=== PATIENT | female | born 1970 | race Caucasian/White ===

== ENCOUNTER → 2017-09-08 | Outpatient (CLI) | payer MEDICARE, MEDICAID ==
[~2017-09-08] MED LIST: CALC-904 PO; CARV6.25 PO; DIPH25CA79 PO; FOLI0.4T2 PO; HYDR-3812 PO; HYDR-3874 PO; IBUP-1780 PO; IOHEXOL 350 MG/ML 150 ML (OMNIPAQUE 350) VIAL IV ONE; MELA1TAB10 PO; NF-LAMO200 PO; NITR-65 PO; NS 100 ML (IVPB) BAG IV ONE; SIME125C85 PO; SIMV20TA PO; TOPI200T25 PO; VENL150C PO
[2017-09-08 10:49] LABS: BLOOD UREA NITROGEN 22 MG/DL (7-18); BUN/CREATININE RATIO 23; CREATININE SERUM 0.96 MG/DL (0.60-1.30); GFR ESTIMATED > 60
--- NOTE | 2017-09-08 18:44 | Diagnostic Imaging Report ---
PROCEDURE: CT angiography of the chest with contrast. TECHNIQUE: Multiple contiguous axial images were obtained through the chest after uneventful bolus administration of intravenous contrast. Reconstructed CTA MIP acquisitions were also performed. INDICATION: Sleep apnea. Bronchitis. Shortness of breath. Cough. 125 mL of Omnipaque 350 is administered intravenously. FINDINGS: The pulmonary arteries are well opacified with no filling defects seen to suggest pulmonary embolism. The thoracic aorta is normal in caliber. There is no mass or significant lymphadenopathy in the mediastinum, marta, or in the axillae. There are calcified granulomas seen in the left hilum and mediastinum, however. The lungs demonstrate a calcified granuloma in the superior segment of the left lower lobe. No significant consolidation, mass, or suspicious nodule is seen otherwise. There is a 4.4 x 3.2 x 2.3 cm fluid-attenuation lesion abutting the right side of the pericardium suggestive of a pericardial cyst. The heart size is not enlarged. No pericardial or pleural effusion. The osseous structures demonstrate a mild compression fracture of the T11 vertebral body, favored to be old. Sections in the upper abdomen appear grossly unremarkable. There is an implanted cardiac/vascular sonographer seen in the anterior left chest wall. IMPRESSION: 1. No pulmonary embolism or aortic dissection. 2. Fluid-attenuation lesion abutting the right side of the pericardium is suggestive of a pericardial cyst. Dictated by: Dictated on workstation # [id number]
== END ==
LOC: RAD 10:05
PROVIDERS: ATTEND Nurse Practitioner Family
DX: J40 Bronchitis, not specified as acute or chronic (principal); R91.8 Other nonspecific abnormal finding of lung field
CPT/HCPCS: 36415; 71275; 82565; 84520

== ENCOUNTER → 2017-09-14 | Outpatient (CLI) | payer MEDICARE, MEDICAID ==
[~2017-09-14] MED LIST changes: -IOHEXOL 350 MG/ML 150 ML (OMNIPAQUE 350) VIAL IV ONE; -NS 100 ML (IVPB) BAG IV ONE; +RT-ALBUTEROL SULF 2.5 MG/3 ML PRE-MIX VIAL IH ONE; +RT-ALBUTEROL SULF 2.5 MG/3 ML PRE-MIX VIAL ONE
== END ==
LOC: RT 08:34
PROVIDERS: ATTEND Nurse Practitioner Family
DX: J40 Bronchitis, not specified as acute or chronic (principal); R06.00 Dyspnea, unspecified
CPT/HCPCS: 94060; 94640; 94726; 94729

== ENCOUNTER 2017-09-16 20:15 | Outpatient (CLI) | payer MEDICARE, MEDICAID ==
[~2017-09-16 20:15] MED LIST changes: -RT-ALBUTEROL SULF 2.5 MG/3 ML PRE-MIX VIAL IH ONE; -RT-ALBUTEROL SULF 2.5 MG/3 ML PRE-MIX VIAL ONE
== END 2017-09-17 06:24 | disposition home or self-care (01) ==
LOC: SLEEP 20:15
PROVIDERS: ATTEND Nurse Practitioner Family
DX: G47.50 Parasomnia, unspecified (principal); G40.909 Epilepsy, unspecified, not intractable, without status epilepticus; G47.10 Hypersomnia, unspecified; G47.00 Insomnia, unspecified
CPT/HCPCS: 95810

== ENCOUNTER → 2017-10-25 | Outpatient (CLI) | payer MEDICARE, MEDICAID ==
[2017-10-25 12:32] LABS: ABG BASE EXCESS -1.9 MMOL/L (-2.5-2.5); ABG HCO3 22 MMOL/L (23-27); ABG OXYGEN SATURATION 100 % (94-100); ABG TCO2 23.2 MMOL/L (21.0-31.0)
[2017-10-25 12:33] LABS: ABG PCO2 35 MMHG (35-45); ABG PH 7.41 (7.37-7.43); ABG PO2 166 MMHG (79-93); ALLENS TEST YES-POS; PATIENT TEMP 98.7
== END ==
LOC: LAB 12:06
PROVIDERS: ATTEND Nurse Practitioner Family
DX: J44.9 Chronic obstructive pulmonary disease, unspecified (principal)
CPT/HCPCS: 82805

== ENCOUNTER → 2017-10-26 | Outpatient (CLI) | payer MEDICARE, MEDICAID | LOC: SLEEP 11:11 | PROVIDERS: ATTEND Nurse Practitioner Family | DX: G47.33 Obstructive sleep apnea (adult) (pediatric) (principal) ==

== ENCOUNTER → 2018-01-16 | Outpatient (CLI) | payer MEDICARE, MEDICAID ==
[~2018-01-16] MED LIST changes: +ACHD5005 PO; -HYDR-3812 PO
--- NOTE | 2018-01-16 15:56 | Diagnostic Imaging Report ---
INDICATION: Bilateral kidney stones. TIME OF EXAM: 4:00 p.m. COMPARISON: Comparison is made with prior exam from 03/31/2016. FINDINGS: There is a small calcific density overlying the lower pole of the left renal shadow, similar to prior exam and is suggestive of a small renal calculus. Right renal shadow is obscured by fecal material within the colon. No definite calcific densities in the proximal or mid ureters is seen. There are some pelvic calcifications present. Calcifications do appear to be somewhat medially oriented bilaterally and the possibility of distal ureteric calculi cannot be entirely excluded. Bowel gas pattern is nonobstructive. No free air seen. IMPRESSION: Abdominal calcifications, as described. Dictated by: Dictated on workstation # [id number]
== END ==
LOC: RAD 14:38
PROVIDERS: ATTEND Urology
DX: N20.2 Calculus of kidney with calculus of ureter (principal)
CPT/HCPCS: 74018

== ENCOUNTER 2018-01-25 20:47 | Outpatient (CLI) | payer MEDICARE, MEDICAID ==
[~2018-01-25 20:47] MED LIST changes: +HYDR-3870 PO; -HYDR-3874 PO
== END 2018-01-26 06:15 | disposition home or self-care (01) ==
LOC: SLEEP 20:47
PROVIDERS: ATTEND Nurse Practitioner Family
DX: G47.33 Obstructive sleep apnea (adult) (pediatric) (principal); G47.10 Hypersomnia, unspecified; G40.909 Epilepsy, unspecified, not intractable, without status epilepticus
CPT/HCPCS: 95811

== ENCOUNTER → 2018-05-09 | Outpatient (CLI) | payer MEDICARE, MEDICAID ==
--- NOTE | 2018-05-09 12:03 | Diagnostic Imaging Report ---
INDICATION: Bronchitis COMPARISON: 09/04/2009 FINDINGS: Frontal and lateral views of the chest demonstrate spinal stimulator device in place. Heart size remains stable. There is a questionable area of consolidation in the medial right lung base. Left lung is clear. There is no pneumothorax or effusion. IMPRESSION: Consolidation medial right lung base. Followup recommended. Dictated by: Dictated on workstation # [id number]
== END ==
LOC: RAD 11:28
PROVIDERS: ATTEND Nurse Practitioner Family
DX: J40 Bronchitis, not specified as acute or chronic (principal); J18.1 Lobar pneumonia, unspecified organism
CPT/HCPCS: 71046

== ENCOUNTER → 2018-07-03 | Outpatient (CLI) | payer MEDICARE, MEDICAID ==
--- NOTE | 2018-07-03 12:08 | Diagnostic Imaging Report ---
INDICATION: Bronchitis, dyspnea, pneumonia. TECHNIQUE: Two view chest 11:13 AM CORRELATION STUDY: 05/09/2018 FINDINGS: Generator pack over the left chest with leads coursing into the neck with fairly significant redundancy present. Heart size and mediastinum are stable. Lung cohen generally clear. Density right cardiophrenic angle stable. IMPRESSION: 1. Stable chest demonstrates no acute abnormality. Density right cardiophrenic angle corresponds to a previously described pericardial cyst. Dictated by: Dictated on workstation # [id number]
== END ==
LOC: RAD 10:41
PROVIDERS: ATTEND Nurse Practitioner Family
DX: J40 Bronchitis, not specified as acute or chronic (principal); J18.9 Pneumonia, unspecified organism
CPT/HCPCS: 71046

== ENCOUNTER → 2018-07-05 | Outpatient (CLI) | payer MEDICARE, MEDICAID ==
[~2018-07-05] MED LIST changes: +IOHEXOL 350 MG/ML 100 ML (OMNIPAQUE 350) VIAL IV ONE; +NS 250 ML (IVPB) BAG IV ONE
--- NOTE | 2018-07-05 12:57 | Diagnostic Imaging Report ---
PROCEDURE: CT chest with contrast only. TECHNIQUE: Multiple contiguous axial images were obtained through the chest after administration of intravenous contrast. INDICATION: Sleep disorder, atelectasis, bronchitis. FINDINGS: The previous CTA chest exam of 09/08/2017 failed to show any sign of an acute cardiopulmonary abnormality. On this exam, the heart size is stable and within normal limits. There are no coronary artery calcifications evident. The aorta is not abnormally dilated and there is no sign of a dissection. There is no defect within the pulmonary arteries to indicate a pulmonary embolus, although the pulmonary arteries are not well opacified and consequently the evaluation for pulmonary embolus is limited. There is some gas in the main pulmonary artery. This is probably related to the injection of the intravenous contrast. There is no mediastinal or hilar adenopathy. The suspected pericardial cyst in the right cardiophrenic angle seen on the prior study is again evident and not significantly changed. The thyroid gland where visualized is unremarkable. The battery pack in the left supraclavicular region seen previously is again evident and appears unchanged in position. The lungs are generally clear. There is no sign of failure, pneumonia, or pleural effusion to suggest an acute abnormality. In the interval since the previous study, however a 6 mm partially calcified nodular density has developed along the posterior aspect of the left upper lobe (image 27/66). This is probably a small granuloma. No other parenchymal lung mass is noted. The sections through the upper abdomen fail to show any sign of an acute abnormality. The bone windows are also unremarkable for an acute fracture or for destructive lesion. The mild long-standing compression deformity of the superior endplate of T12 seen previously appears stable. The calcified disc bulges at T6-T7 and T7-T8 are also no different than on the prior exam. There does appear to be spinal stenosis at the T7-T8 level. There is no obvious breast mass. According to our records, the patient has not had a mammogram. If the patient has had a recent (within the last year) mammogram elsewhere, then no further imaging would be necessary. However if the patient has not had a recent mammogram, then mammography would be recommended for further evaluation. IMPRESSION: 1. There is no evidence for an acute cardiopulmonary abnormality. The pulmonary arteries were not well opacified however and consequently difficult to assess. 2. In the interval since the prior study, a small partially calcified nodular density has developed along the posterior aspect of the left upper lung. This is most likely a benign process. Even so, a six-month followup CT chest exam would be recommended for continued evaluation. 3. There is no obvious breast mass. Recommendations, as above. Dictated by: Dictated on workstation # [id number]
== END ==
LOC: RAD 11:12
PROVIDERS: ATTEND Nurse Practitioner Family
DX: J40 Bronchitis, not specified as acute or chronic (principal); J98.11 Atelectasis; G47.50 Parasomnia, unspecified; J44.9 Chronic obstructive pulmonary disease, unspecified; F17.200 Nicotine dependence, unspecified, uncomplicated
CPT/HCPCS: 71260

== ENCOUNTER → 2019-01-09 | Outpatient (CLI) | payer MEDICARE, MEDICAID ==
[~2019-01-09] MED LIST changes: -IOHEXOL 350 MG/ML 100 ML (OMNIPAQUE 350) VIAL IV ONE; -NS 250 ML (IVPB) BAG IV ONE; -SIME125C85 PO; +SIME125C86 PO
--- NOTE | 2019-01-09 11:32 | Diagnostic Imaging Report ---
PROCEDURE: CT chest without contrast. TECHNIQUE: Multiple contiguous axial images were obtained through the chest without the use of intravenous contrast. INDICATION: COPD. Bronchitis. Epilepsy. COMPARISON: April 04, 2018. FINDINGS: Evaluation of the lung cohen demonstrates benign calcified granuloma within the posterior margins of the left lower lobe. Some associated benign left perihilar lymph nodes are also noted. No suspicious pulmonary parenchymal nodules or masses are identified. There is no focal consolidation, large effusion, nor pneumothorax on either side. Cardiomediastinal structures show normal heart size. There is no large pericardial effusion. No pathologically enlarged or morphologically abnormal adenopathy is seen within the mediastinum, marta, nor axillae on this noncontrast exam. Osseous structures show no acute abnormalities. Neurostimulator device is noted in the left upper chest anteriorly. Included portions of the upper abdomen show no additional acute abnormalities. IMPRESSION: 1. No acute cardiopulmonary process. Dictated by: Dictated on workstation # [id number]
[2019-01-09 12:08] LABS: ABG BASE EXCESS -3.3 MMOL/L (-2.5-2.5); ABG OXYGEN SATURATION 99 % (94-100); ABG PCO2 34 MMHG (35-45); ABG PO2 94 MMHG (79-93); ABG TCO2 21.8 MMOL/L (21.0-31.0); ALLENS TEST YES-POS; INSPIRED O2 ROOM AIR; PATIENT TEMP 97.9; VENTILATOR NO
== END ==
LOC: RAD 10:42
PROVIDERS: ATTEND Nurse Practitioner Family
DX: J44.9 Chronic obstructive pulmonary disease, unspecified (principal); G47.33 Obstructive sleep apnea (adult) (pediatric); G47.50 Parasomnia, unspecified; J40 Bronchitis, not specified as acute or chronic; J98.11 Atelectasis; J30.9 Allergic rhinitis, unspecified; G40.909 Epilepsy, unspecified, not intractable, without status epilepticus; F17.200 Nicotine dependence, unspecified, uncomplicated
CPT/HCPCS: 36600; 71250; 82805

== ENCOUNTER → 2019-04-18 | Outpatient (CLI) | payer MEDICARE, MEDICAID ==
[~2019-04-18] MED LIST changes: +RT-ALBUTEROL SULF 2.5 MG/3 ML PRE-MIX VIAL INH ONE; +RT-ALBUTEROL SULF 2.5 MG/3 ML PRE-MIX VIAL ONE
== END ==
LOC: RT 13:16
PROVIDERS: ATTEND Nurse Practitioner Family
DX: J44.9 Chronic obstructive pulmonary disease, unspecified (principal); J40 Bronchitis, not specified as acute or chronic
CPT/HCPCS: 94060; 94726; 94729

== ENCOUNTER → 2019-05-29 | Outpatient (CLI) | payer MEDICARE, MEDICAID ==
[~2019-05-29] MED LIST changes: -RT-ALBUTEROL SULF 2.5 MG/3 ML PRE-MIX VIAL INH ONE; -RT-ALBUTEROL SULF 2.5 MG/3 ML PRE-MIX VIAL ONE
--- NOTE | 2019-05-29 11:16 | Diagnostic Imaging Report ---
INDICATION: Left knee pain. Three views were obtained. FINDINGS: The alignment is normal. There is an intramedullary jean paul in the left tibia. There are mild degenerative changes. There is no fracture or dislocation. IMPRESSION: Mild three compartment osteophytic change otherwise unremarkable. Dictated by: Dictated on workstation # [id number]
== END ==
LOC: RAD FS 10:29
PROVIDERS: ATTEND Nurse Practitioner
DX: M17.12 Unilateral primary osteoarthritis, left knee (principal); M25.762 Osteophyte, left knee
CPT/HCPCS: 73562

== ENCOUNTER → 2019-08-27 | Outpatient (CLI) | payer MEDICARE, MEDICAID ==
--- NOTE | 2019-08-27 10:15 | Diagnostic Imaging Report ---
EXAMINATION: Left tibia and fibula at 0951 hours. INDICATION: Leg pain. AP and lateral views were obtained. COMPARISON: There are no prior left tibia and fibula examinations available for comparison. FINDINGS: The left knee exam of 05/29/2019 noted an intramedullary jean paul and orthopedic fixation screws in the proximal tibia. On this exam the intramedullary jean paul is again identified and seems unchanged in position. There are also extensive postsurgical changes involving the distal tibia and fibula. Specifically, there are orthopedic fixation screws and wires traversing the medial aspect of the distal tibia. There is also an orthopedic plate and screw fixation device along the lateral aspect of the distal tibia and there is an orthopedic fixation screw longitudinally traversing the lateral malleolus and distal most portion of the fibula. The orthopedic hardware seems to be in good position. There is no fracture or acute bony abnormality identified. As noted on the previous exam, there is mild narrowing of the medial compartment of the knee joint. The knee joint is otherwise well maintained. There does appear to be at least moderate degenerative disease of the ankle joint. The soft tissues are unremarkable. IMPRESSION: There are postsurgical and posttraumatic changes involving the tibia and fibula but there is no evidence for an acute bony abnormality. Dictated by: Dictated on workstation # [id number]
== END ==
LOC: RAD FS 09:32
PROVIDERS: ATTEND Nurse Practitioner
DX: M17.12 Unilateral primary osteoarthritis, left knee (principal); Z98.890 Other specified postprocedural states
CPT/HCPCS: 73590

== ENCOUNTER → 2019-09-03 | Outpatient (CLI) | payer MEDICARE, MEDICAID ==
--- NOTE | 2019-09-03 09:54 | Diagnostic Imaging Report ---
EXAMINATION: Right ankle radiograph, 3 views. COMPARISON: None. HISTORY: 49-year-old female, right ankle pain. FINDINGS: There is sideplate and screw fixation hardware at the level of the distal fibula with additional fibular fixation screw. There is a chronic healed fracture deformity of the distal fibular diaphysis. There is a partially imaged intramedullary jean paul fixation screw in the distal tibia. There is a chronic fracture deformity at the level of the distal tibial metadiaphysis. The visualized portions of the hardware are intact. There is well-corticated ossification adjacent to the distal fibular tip compatible with sequela of remote prior injury as well as the well-corticated ossifications adjacent to the tip of the medial malleolus. The alignment of the ankle mortise is unremarkable. There is no identified acute fracture. There is no tibiotalar joint effusion. There is no identified unexpected radiopaque foreign body. IMPRESSION: 1. No acute bony abnormality at the level of the right ankle. Dictated by: Dictated on workstation # [id number]
--- NOTE | 2019-09-03 09:54 | Diagnostic Imaging Report ---
INDICATION: Leg pain. TECHNIQUE: AP and lateral views of the right tibia and fibula CORRELATION STUDY: None FINDINGS: Longstem intramedullary jean paul with proximal distal fixation screws as well as a plate and screws transfixing distal fibula are present. Old healed fracture deformity of the distal fibula above the area of plate is present. An acute bony abnormality is not suggested. Imaging of the knee demonstrates no acute abnormality. Ankle better assessed at dedicated ankle views. Soft tissues are unremarkable. IMPRESSION: 1.Negative for acute bony abnormality of the leg. Internal fixation hardware including jean paul, plate and screws of the tibia and fibula. Dictated by: Dictated on workstation # [id number]
== END ==
LOC: RAD FS 09:24
PROVIDERS: ATTEND Nurse Practitioner
DX: M25.571 Pain in right ankle and joints of right foot (principal); M79.661 Pain in right lower leg; Z87.81 Personal history of (healed) traumatic fracture; Z98.890 Other specified postprocedural states; Z96.7 Presence of other bone and tendon implants
CPT/HCPCS: 73590; 73610

== ENCOUNTER 2020-02-10 17:18 | Emergency (ER) | payer MEDICARE, MEDICAID ==
[~2020-02-10] VITALS: Ht 160 cm; Wt 92.3 kg
[2020-02-10 17:20] VITALS: BP 125/70
--- NOTE | 2020-02-10 17:29 | ED Fall/Injury ---
General Stated Complaint: LT HAND INJ History of Present Illness Date Seen by Provider: Feb 10, 2020 Time Seen by Provider: 17:25 Initial Comments This patient is a 49-year-old female presents to the emergency department complaining of left hand injury. Patient states she has chronic and frequent seizures and seizure activity has been having these issues since she was 20 [address] and does take her medications daily patient states this is a daily occurrence. Patient states that she had a seizure earlier today and when she hit her hand on a cabinet. Patient complained of pain and some bruising. Patient requests x-ray. Patient is awake and alert and does not appear to be any acute postictal phase. Patient states her seizure activity is chronic and seems to be given little bit better than her norm. Patient is followed local PCP for this pain. The medical evaluation tracing. Occurred: this afternoon Severity: mild Context: other Allergies and Home Medications Allergies Coded Allergies: acetaminophen (Verified Allergy, Unknown, blisters inside mouth, 03/22/16) aspirin (Verified Allergy, Unknown, interferes with seizure med, 03/22/16) codeine (Verified Allergy, Unknown, blisters inside mouth, 03/22/16) Home Medications Calcium Carbonate/Vitamin D3 1 Each Tablet, 1 EACH PO TID, (Reported) Carvedilol 6.25 Mg Tablet, 6.25 MG PO DAILY, (Reported) Carvedilol 6.25 Mg Tablet, 3.125 MG PO HS, (Reported) TAKE 1/2 OF 6.25MG TAB Diphenhydramine HCl 25 Mg Capsule, 50 MG PO TAKE WITH HYDROCODON, (Reported) TAKE 2 (25MG) TABS WITH HYDROCODONE Folic Acid 0.4 Mg Tablet, 0.4 MG PO DAILY, (Reported) Hydrocodone Bit/Acetaminophen 1 Each Tablet, 1-2 EACH PO Q4H PRN for PAIN, (Reported) Hydrocodone/Acetaminophen 1 Each Tablet, 1-2 EACH PO Q4H PRN for PAIN Prescribed by: NUBIA ROBLES on 03/24/16 1008 Ibuprofen 800 Mg Tablet, 800 MG PO Q8H PRN for PAIN, (Reported) Lamotrigine 200 Mg Tab, 200 MG PO TID, (Reported) Melatonin/Pyridoxine 1 Each Tablet, 3 MG PO HS PRN for SLEEP, (Reported) Nitrofurantoin Monohyd/M-Cryst 100 Mg Capsule, 1 TAB PO BID Prescribed by: NUBIA ROBLES on 03/24/16 1008 Simethicone 125 Mg Capsule, 125 MG PO PRN PRN for GAS, (Reported) Simvastatin 20 Mg Tablet, 20 MG PO HS, (Reported) Topiramate 200 Mg Tablet, 200 MG PO TID, (Reported) Venlafaxine HCl 150 Mg Cap.er.24h, 150 MG PO DAILY, (Reported) Patient Home Medication List Home Medication List Reviewed: Yes Review of Systems Review of Systems Constitutional: no symptoms reported, see HPI; No chills, No diaphoresis, No dizziness, No fever, No malaise, No weakness, No weight gain, No weight loss, No other Eyes: No Symptoms Reported; Denies See HPI, Denies Blindness, Denies Blurred Vision, Denies Drainage, Denies Decreased Acuity, Denies Foreign Body Sensation, Denies Inflammation, Denies Pain, Denies Photophobia, Denies Previous Injury, Denies Shadows, Denies Tunnel Vision, Denies Vision Changes, Denies Contact Lenses, Denies Glasses, Denies Other Ears, Nose, Mouth, Throat: no symptoms reported; denies see HPI, denies ear pain, denies ear discharge, denies nose pain, denies nose discharge, denies epistaxis, denies mouth pain, denies mouth swelling, denies loose teeth, denies throat pain, denies throat swelling Respiratory: no symptoms reported; No see HPI, No cough, No dyspnea on exertion, No hemoptysis, No orthopnea, No phlegm, No short of breath, No stridor, No wheezing, No other Cardiovascular: no symptoms reported; No see HPI, No chest pain, No edema, No Hx of Intervention, No palpitations, No syncope, No vascular heart diseas, No other Musculoskeletal: No no symptoms reported, No see HPI, No back pain, No gout, No joint pain, No joint swelling, No muscle pain, No muscle stiffness, No muscle cramps, No muscle twitching, No muscle weakness, No neck pain; other (Hand pain) Skin: no symptoms reported; No see HPI, No change in color, No change in hair/nails, No dryness, No hx of skin cancer, No lesions, No lumps, No pruritus, No rash, No other Psychiatric/Neurological: Denies No Symptoms Reported, Denies See HPI, Denies Anxiety, Denies Depressed, Denies Emotional Problems, Denies Headache, Denies Numbness, Denies Paresthesia, Denies Pre-Existing Deficit; Seizure (chronic seizures and happened daily. Patient takes medications and also has a brain stimulator.); Denies Tingling, Denies Tremors, Denies Weakness, Denies Other Past Pemtosk-Xrgdry-Yxgied Hx Immunizations Up To Date Date of Pneumonia Vaccine: Nov 28, 2013 Past Medical History Reproductive Disorders: No Sexually Transmitted Disease: No Kidney Stones Arthritis, Fractures Physical Exam Vital Signs Vital Signs - First Documented 02/10/20 17:20 Temp 36.4 Pulse 107 Resp 18 B/P (MAP) 125/70 (88) Pulse Ox 97 O2 Delivery Room Air Capillary Refill : Height, Weight, BMI Height: 5'3.00" Weight: 191lbs. 2.0oz. [id number]; 31.78 BMI Method: General Appearance: WD/WN, no apparent distress HEENT: PERRL/EOMI, normal ENT inspection, TMs normal, pharynx normal Neck: non-tender, full range of motion, supple, normal inspection Cardiovascular: normal peripheral pulses, regular rate, rhythm, no edema, no gallop, no JVD, no murmur Respiratory: chest non-tender, lungs clear, normal breath sounds, no respiratory distress, no accessory muscle use Gastrointestinal: normal bowel sounds, non tender, soft, no organomegaly, no pulsatile mass Extremities: normal inspection, no pedal edema, no calf tenderness, normal capillary refill, other (patient complains of difficulty making a fist with her left hand due to pain and bruising. No obvious deformity seen.) Progress/Results/Core Measures Results/Orders My Orders Orders - CASH SARGENT MD Hand 3 View Left (02/10/20 17:25) Ice: Apply To Affected Area (02/10/20 17:25) Vital Signs/I&O 02/10/20 17:20 Temp 36.4 Pulse 107 Resp 18 B/P (MAP) 125/70 (88) Pulse Ox 97 O2 Delivery Room Air Diagnostic Imaging Diagonstic Imaging: Xray Plain Films/CT/US/NM/MRI: hand Comments Negative for any acute fractures or injury. Departure Impression Primary Impression: Contusion of hand Additional Impression: History of seizures Disposition: 01 HOME, SELF-CARE Condition: Stable Departure-Patient Inst. Decision time for Depature: 17:37 Referrals: LIZZ HENRIQUEZ DO (PCP/Family) Primary Care Physician Patient Instructions: Hand Pain (DC) Add. Discharge Instructions: No fractures by x-ray. Continue with rest and elevation compression ice as needed. May take Tylenol Motrin earlier home pain medication for any relief. Follow up with her PCP in 2-3 days. CASH SARGENT MD Feb 10, 2020 17:29
--- NOTE | 2020-02-10 17:49 | Diagnostic Imaging Report ---
INDICATION: Fall, left hand pain, swelling and redness. EXAMINATION: Three views of the left hand were obtained. FINDINGS: Slight irregularity along the volar aspect of middle phalanx at the PIP joint as seen on the lateral view. I believe this is the 2nd digit. No other fracture, dislocation or other acute abnormality is seen. IMPRESSION: Nondisplaced fracture involving the volar aspect of the middle phalanx at the PIP joint which appears to be the 2nd digit. This is only seen on the lateral view. Dictated by: Dictated on workstation # [id number]
--- OUTSIDE RECORDS SUMMARY | 2020-02-11 03:06 | XMS REPORT | Clinical Summary ---
Author [facility] Address Unknown Phone Unavailable Care Team Providers Care Clutch Inspector Name Role Phone EldonFreedom correa PCP Ap Chen MD Unavailable Travis Edwards MD Unavailable Alexey Zapata MD Unavailable Nori Yanez RN Unavailable Unavailable Verna Modi RN Unavailable Unavailable Quentin Loja MD Unavailable Samy Aguirre MD Unavailable Jabari Kumar MD Unavailable Lauren Venegas RN Unavailable Unavailable Annalisa Smith RN Unavailable Unavailable Prashant Nelson RN Unavailable Unavailable Ariana Thomas MD Unavailable Stephany Nelson RN Unavailable Unavailable Source Comments Some departments are not documenting in the electronic medical record. If you d o not see the information that you expected, contact Release of Information in [facility] Information Management department at [phone] for further assistan ce in locating additional records.[facility] Allergies Comments Active Allergy Reactions Severity Noted Date Allergy recorded in SMS: Aspirin Patient told to avoid due to interaction with ani-seizure medications Aspirin SEE COMMENTS 04/11/2006 Amoxicillin-Pot SEIZURES 06/17/2014 Clavulanate Ibandronate SEIZURES 05/21/2010 Swelling Acetaminophen-Codeine SEE COMMENTS 01/16/2014 Medications End Date Status Medication Sig Dispensed Refills Start Date Active CALCIUM CARBONATE/VITAMIN Take 600 mg 0 D3 (CALCIUM + D PO) by mouth three times daily. Active medroxyPROGESTERone,contr Inject 150 mg 0 acep, (DEPO-PROVERA) to area(s) as 150mg/1 mL Syrg directed Once. Active venlafaxine XR (EFFEXOR Take 150 mg 0 XR) 150 mg capsule by mouth Daily. Active diphenhydrAMINE Take 25 mg by 0 (BENADRYL) 25 mg PO mouth Every 6 capsule Hours as needed. Active albuterol (VENTOLIN HFA, Inhale 1-2 0 PROAIR HFA) 90 Puffs by mcg/actuation inhaler mouth every 6 hours as needed. Active lamoTRIgine (LAMICTAL) Take 200 mg 0 200 mg tablet by mouth three times daily. Active propranolol (INDERAL) 60 Take 60 mg by 0 mg tablet mouth twice daily. Active topiramate (TOPAMAX) 200 Take 200 mg 0 mg tablet by mouth three times daily. Active ascorbic acid (VITAMIN C) Take 500 mg 0 500 mg tablet by mouth three times daily. Active HYDROcodone-acetaminophen Take 1-2 Tabs 60 Tab 0 (+) (VICODIN) 10-325 mg by mouth 4 tablet every 4 hours as needed for Pain. Max 8 tabs/day Active carvedilol (COREG) 6.25 Take 6.25 mg 0 mg tablet by mouth twice daily. 1/2 tab am 1/2 tab @@nite Active simvastatin (ZOCOR) 20 mg Take 20 mg by 0 tablet mouth at bedtime daily. Active Problems Problem Noted Date Abdominal pain 05/28/2015 Diarrhea 05/28/2015 Tibia fracture 01/16/2014 Fracture of tibia, distal, closed 09/02/2010 Adjustment of prosthetic device 09/02/2010 Seizures 03/30/2010 Calculus of kidney 02/01/2008 Resolved Problems Problem Noted Date Resolved Date Ankle fracture 12/13/2013 04/29/2014 Complications due to internal prosthetic device, impl ant, and graft 09/02/2010 01/29/2014 Immunizations Name Administration Dates Next Due Flu Vaccine Trivalent =>3 01/17/2014 Yo (Preservative Free) Pneumococcal Vaccine 01/17/2014 (23-Carol Adult) Family History Medical History Relation Name Comments Diabetes Father Heart Attack Father Arthritis Mother Heart Attack Mother Osteoporosis Mother Asthma Son Relation Name Status Comments Father Mother Son Social History Date Tobacco Use Types Packs/Day Years Used Quit: 01/05/2014 Former Smoker Cigarettes 0.5 19 Smokeless Tobacco: Never Used Drinks/Week oz/Week Comments Alcohol Use No Sex Assigned at Date Recorded Not on file Industry Job Start Date Occupation Not on file Not on file Not on file Travel End Travel History Travel Start No recent travel history available. Last Filed Vital Signs Reading Time Taken Comments Vital Sign 105/63 06/10/2015 10:00 AM CDT Blood Pressure 94 06/10/2015 10:03 AM CDT Pulse 36.7 C (98.1 F) 06/10/2015 9:10 AM CDT Temperature 16 05/28/2015 11:28 AM CDT Respiratory Rate 98% 06/10/2015 10:03 AM CDT Oxygen Saturation - - Inhaled Oxygen Concentration 82.6 kg (182 lb) 06/10/2015 7:47 AM CDT Weight 158.8 cm (5' 2.5") 06/10/2015 7:47 AM CDT Height 32.76 06/10/2015 7:47 AM CDT Body Mass Index Plan of Treatment Health Maintenance Due Date Last Done Comments MEDICARE ANNUAL WELLNESS 1970 VISIT DTAP/TDAP VACCINES ( - 1981 Tdap) HIV SCREENING 1985 PHYSICAL (COMPREHENSIVE) 1988 EXAM CERVICAL CANCER SCREENING 1991 BREAST CANCER SCREENING 2010 INFLUENZA VACCINE 06/28/2019 01/17/2014 Results Not on filefrom Last 3 Months Insurance Type Payer Benefit Subscriber ID Effective Phone Address Plan / Dates Group Medicare MEDICARE MEDICARE xxxxxxxxxx 1993-P PART A AND resent B [facility] xxxxxxxxx 05/07/2014 - [place] Present HEALTH/SNF /INTERMEDIATE [id number] Advance Directives 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 necessary based on Dx 09/17/2010 2:32 PM Full Code 09/16/2010 3:14 AM 09/02/2010 5:48 PM Full Code 08/31/2010 9:13 PM 05/24/2010 5:01 AM Full Code 05/22/2010 5:00 PM 03/31/2010 9:51 PM Full Code 03/30/2010 4:25 PM
--- OUTSIDE RECORDS SUMMARY | 2020-02-11 03:07 | XMS REPORT | Encounter Summary ---
Author Author [facility] Organization [facility] Address Unknown Phone Unavailable Care Team Providers Care Hat Body Sorter Name Role Phone ElodnFreedom correa PCP Reason for Visit * Reason Comments Seizures Encounter Details Care Team Description Date Type Department Hortencia Stewart, FERTILIZER APPLICATOR [address] [place], [place] [id number] Seizures 01/09/2020 Telephone [facility] [address] [place] [address] Social History Date Tobacco Use Types Packs/Day Years Used Started: 1986 Current Every Day Smoker Cigarettes 0.5 35 Smokeless Tobacco: Never Used Comments: "I've tried everything there i s" Drinks/Week oz/Week Comments Alcohol Use 0 Standard drinks or equivalent 0.0 No Food Insecurity Answer Date Recorded Within the past 12 months, you worried that your Never josy e 12/13/2019 food would run out before you got money to buy more. Within the past 12 months, the food you bought Never true 12/13/2019 just didn't last and you didn't have mo ottoniel to get more. Transportation Needs Answer Date Recorded In the past 12 months, has lack of transportation No 12/13/2019 kept you from medical appointments or f rom getting medications? In the past 12 months, has lack of transportation No 12/13/2019 kept you from meetings, work, or gettin g things needed for daily living? Sex Assigned at Date Recorded Not on file Industry Job Start Date Occupation Not on file Not on file Not on file Travel End Travel History Travel Start No recent travel history available. documented as of this encounter Miscellaneous Notes * Telephone Encounter - Malathi Lanza RN - 01/15/2020 3:30 PM VIDEO SOFTWARE ENGINEER Called patient to check in with her to see if seizures are back to baseline. Damari keller VM to return phone call. O SOFTWARE ENGINEER * Telephone Encounter - Michel Rae CMA - 01/09/2020 4:29 PM VIDEO SOFTWARE ENGINEER Summer called and stated that she'd had her VNS turned up on 12/31/19 and that her seizures improved, but yesterday and today she's had a lot of seizures that sta rt around 12:30 PM and go on and off throughout the afternoon. She doesn't know when exactly they stop. She has been taking xanax to help calm herself down and today she was able to use her magnet a couple times but her head is sore and she feels weak. She is taking lamotrigine 200 mg TID, Briviact 100 mg BID, and B anzel 1600 mg BID and reports no missed or late doses. She reports no sleeping or stress issues, but does state she's felt congested with a cough since last we ek and that illness can contribute to her seizures. I encouraged her to consult her PCP about the cough but in the meantime offered to ask for further recommen dations. Please advise. O SOFTWARE ENGINEER documented in this encounter Plan of Treatment Care Team Description Date Type Specialty Hortencia Stewart, FERTILIZER APPLICATOR [address] [address] [phone] 03/31/2020 Office Visit Neurology documented as of this encounter Visit Diagnoses Not on filedocumented in this encounter
--- OUTSIDE RECORDS SUMMARY | 2020-02-11 03:07 | XMS REPORT | Encounter Summary ---
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 documented as of this encounter Last Filed Vital Signs Reading Time Taken Comments Vital Sign 123/62 12/31/2019 11:06 AM CUP[facility] [employer]PER[employer] Blood Pressure 108 12/31/2019 11:06 AM [employer] OPER[employer]ATION Pulse - - Temperature - - Respiratory Rate - - Oxygen Saturation - - Inhaled Oxygen Concentration 92.9 kg (204 lb 12.8 oz) 12/31/2019 11:06 AM [facility] [employer] Weight 160 cm (5' 3") 12/31/2019 11:06 AM [employer] Height 36.28 12/31/2019 11:06 AM [employer] Body Mass Index documented in this encounter Progress Notes * Hortencia Stewart APRN - 12/31/2019 11:00 AM [employer] [employer]PER[employer] Patient Name: Summer Cullen Age: 49 y.o. 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 She has previously see n Dr. Tsai and last saw him August 17, 2017. She was diagnosed with epileps y at 21 years of age. She typically has generalized tonic-clonic seizures with out an aura but she also has staring episodes without an aura. She has been harris luated on 3 prior occasions with video EEG monitoring, at [facility] in 1996, [facility] in 2010 and at [facility] by Dr. Oumar Babcock in 2016. A clear focus of seizure onset could not be found in any of these evaluations a nd overall it is thought she has a primary generalized form of epilepsy, but jerel n if she had a more focal form of epilepsy a focus cannot be found so she is not a candidate for a respective surgical option. MRI of the brain with and without contrast enhancement on May 06, 2011 showed bifrontal encephalomalacia was worse over the right frontal region with evidence of a previous craniotomy. Enceph alomalacia appears to be due to her invasive monitoring in the past and this wou ld represent a complication of that procedure. There is no evidence for mesial temporal sclerosis. Neuropsychological testing performed 2011 showed c ognitive changes but no clear lateralized pattern of dysfunction. I reviewed her prior epilepsy history from her last visit with me October 01. She was admitted to [facility] for inpatient video EEG telemetry -12/17/19. Initially her EEG showed theta frequency slowing as well as sh trevon discharges over the right temporal region. However as they continue to wean off her medications in order to trigger her seizures for localization purposes, more generalized abnormalities were seen. Two electrographic seizures were cap tured. The first seizure was characterized by a generalized burst of high-volta ge activity followed by an electric decremental response. The patient proceeded to have a secondarily generalized tonic-clonic seizure. In the postictal phase she removed some of the electrodes. Later the same day she had a breakthrough seizure with unclear localization because some of the electrodes had been remove d. However the seizure was quite similar in appearance to the first seizure cap tured. Since her discharge she is done reasonably well. She feels like her sei zures have decreased by 25% intensity since Briviact 100 mg twice daily was adde d. She does still have a seizure approximately once every 2 weeks. She has bee n discussing the option of a deep brain stimulator with her family and she is ve ry much in learning more about this and perhaps meeting with the neurosurgeon to discuss this approach. She continues with her prior regimen of lamotrigine 200 mg 3 times daily, Banzel 1600 mg BID, and Briviact 100 mg twice daily and is to lerating her medications reasonably well without intolerable side effects. Ther e are no new neurological symptoms. She continues wearing her BiPAP with oxygen at night more and more. This is res ulting in better sleep. It has been felt that both her seizure control and migr duncan control have been significantly worsened by her previously untreated sleep apnea. In the past, she has tried Dilantin, Tegretol, phenobarbital, Depakote, Potiga a nd Keppra in the past. She has tried Topamax which she attributed to kidney sto [place]. She thinks that she may have tried Vimpat but is not entirely sure. She t hinks that this may have increased her seizure frequency so it was discontinued. She has not tried zonisamide or Onfi. REVIEW OF SYSTEMS: A 14 system review of systems was negative except for where noted in the history of present illness above. 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 Difficulty staying asleep Exercise tolerance finding limited by leg pain--if walking a long way will use electric cart in grocery st ore Fractures from seizures--leg and ankle fractures in past Head injury concussions from seizures--since age 21 HL (hearing loss) left ear QUINAULT-no hearing aides Kidney stones Migraine Obesity JOSE ALBERTO (obstructive sleep apnea) Osteoarthritis mainly ankles and knees and wrists and back Osteopenia Seizures (HCC) Sinusitis possibly--history of sinus infections Urinary tract infection Visual impairment wears glasses PAST SURGICAL HISTORY: Past Surgical History: Procedure Laterality Date ANKLE SURGERY Bilateral 2009 x5 BRAIN SURGERY 1995 & 1997 x2 SECTION 1989 COLONOSCOPY IMPLANTATION, NEUROSTIMULATOR, VAGAL x 4 surgeries--2 stimulators and 2 batteries replaced KIDNEY STONE SURGERY approx. 2009 Laser surgery/more than one surgery for stones LEG SURGERY Left Took out screw ORIF TIBIA & FIBULA FRACTURES Right x2 ORIF TIBIA FRACTURE Left x 1 REPLACEMENT, GENERATOR, VAGUS NERVE NEUROSTIMULATOR N/A 02/25/2016 Procedure: VAGAL NERVE STIMULATOR REPLACEMENT WITH INOPERATIVE PROGRAMING; Delta geon: Sj Vivar MD; Location: [facility] Main OR; Service: ENT; Laterality : N/A; REPLACEMENT, GENERATOR, VAGUS NERVE NEUROSTIMULATOR Left 08/03/2019 Procedure: REPLACEMENT, GENERATOR, VAGUS NERVE NEUROSTIMULATOR; Surgeon: Yi Bhatti MD; Location: [facility] OR; Service: Neurosurgery; Laterality: Le ft; TUBAL LIGATION 1992 FAMILY HISTORY: Family History Problem Relation Age of Onset Hyperlipidemia Mother Migraines Mother Alzheimer's disease Mother Osteoporosis Mother Hyperlipidemia Father Diabetes Father Alcohol abuse Father Heart disease Father Heart disease Other FAMILY HX Heart disease Other FAMILY HX Rheum arthritis Other FAMILY HX Migraines Cousin No Known Problems Sister No Known Problems Brother No Known Problems Daughter No Known Problems Son No Known Problems Brother SOCIAL HISTORY: Social History Socioeconomic History Marital status: Spouse name: Not on file Number of children: Not on file Years of education: Not on file Highest education level: Not on file Occupational History 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 Social Needs Financial resource strain: Not on file Food insecurity Worry: Never true Inability: Never true Transportation needs Medical: No Non-medical: No Tobacco Use Smoking status: Current Every Day Smoker Packs/day: 0.50 Years: 35.00 Pack years: 17.50 Types: Cigarettes Start date: 1986 Smokeless tobacco: Never Used Tobacco comment: "I've tried everything there is" Substance and Sexual Activity Alcohol use: No Alcohol/week: 0.0 standard drinks Drug use: No Sexual activity: Not on file Lifestyle Physical activity Days per week: Not on file Minutes per session: Not on file Stress: Not on file Relationships Social connections Talks on phone: Not on file Gets together: Not on file Attends advent service: Not on file Active member of club or organization: Not on file Attends meetings of clubs or organizations: Not on file Relationship status: Not on file Intimate partner violence Fear of current or ex partner: Not on file Emotionally abused: Not on file Physically abused: Not on file Forced sexual activity: Not on file Other Topics Concern Not on file Social History Narrative Lives with adult daughter and grandchild Has AD, MPOA is father [place] Mireles Code status: FULL CURRENT MEDICATIONS: Current Outpatient Medications Medication Sig Dispense Refill ALBUTEROL INHL Inhale 2 puffs every 4 (four) hours as needed. ALPRAZolam (XANAX) 0.25 MG tablet Take 0.25 mg by mouth 3 (three) times a da y. brivaracetam 100 mg Tab Take 100 mg by mouth 2 (two) times a day. 180 tablet 1 budesonide-formoterol (SYMBICORT) 160-4.5 mcg/actuation inhaler Inhale 2 puf fs 2 (two) times a day. calcium carbonate-vitamin D3 600 mg(1,500mg) -800 unit Tab Take 1 tablet by mouth 3 (three) times a day. carvedilol (COREG) 25 MG tablet Take 25 mg by mouth 2 (two) times a day. 5 chrom annette/brindal tamayo (GARCINIA CAMBOGIA ORAL) Take 1 tablet by mouth minh ly. cyanocobalamin (VITAMIN B-12) 500 MCG tablet Take 500 mcg by mouth daily. diphenhydrAMINE (BENADRYL) 25 mg capsule Take 50 mg by mouth as needed (Take with Hydrocodone to stop itching). folic acid (FOLVITE) 1 MG tablet Take 1 tablet (1 mg total) by mouth daily. 90 tablet 3 HYDROcodone-acetaminophen (NORCO) 5-325 mg per tablet Take 1 tablet by mouth every 4 (four) hours as needed for pain. ibuprofen (ADVIL,MOTRIN) 800 MG tablet Take 800 mg by mouth 3 (three) times a day as needed. ipratropium-albuterol (DUO-NEB) 0.5-3 mg/3 mL nebulizer Inhale 3 mL via nebu lizer 4 (four) times a day as needed. lamoTRIgine (LAMICTAL) 200 MG tablet Take 1 tablet (200 mg total) by mouth 3 (three) times a day. 270 tablet 3 linaclotide (LINZESS) 145 mcg cap Take 145 mcg by mouth daily. medroxyPROGESTERone (DEPO-PROVERA) 150 mg/mL injection Inject 150 mg intramu scularly take as directed. Every 6 weeks melatonin 10 mg Tab Take 1 tablet by mouth nightly. montelukast (SINGULAIR) 10 mg tablet Take 10 mg by mouth nightly. nortriptyline (PAMELOR) 50 MG capsule Take 1 capsule (50 mg total) by mouth nightly. 90 capsule 3 ondansetron (ZOFRAN) 8 MG tablet Take 8 mg by mouth every 4 (four) hours as needed for nausea. OXYGEN THERAPY Use 3.5 L in each nostril nightly. rizatriptan (MAXALT) 10 MG tablet Take 1 tablet (10 mg total) by mouth as ne eded for migraine. After 2 hrs, if symptoms persist, may repeat dose x1. Max 2 d oses in 24 hrs. 10 tablet 11 rufinamide (BANZEL) 400 MG tablet Take 4 tablets (1,600 mg total) by mouth 2 (two) times a day. 720 tablet 3 simethicone (ANTI-GAS ULTRA STRENGTH) 180 mg capsule Take 360 mg by mouth ev nicole 6 (six) hours as needed for flatulence. simvastatin (ZOCOR) 20 MG tablet Take 20 mg by mouth nightly. solifenacin (VESICARE) 10 MG tablet Take 10 mg by mouth daily. UNABLE TO FIND daily. CENTRUM ADULTS TAKING 1 TAB DAILY. venlafaxine 225 mg ER 24 hr tablet Take 225 mg by mouth every morning. No current facility-administered medications for this visit. ALLERGIES: Allergies Allergen Reactions Aspirin Other (See Comments) Interacts with epilepsy meds Tylenol-Codeine #3 [Acetaminophen-Codeine] Lip swelling Examination: Vitals: 12/31/19 1106 BP: 123/62 BP Location: Left arm Patient position: Sitting Pulse: (!) 108 Weight: 92.9 kg (204 lb 12.8 oz) Height: 1.6 m (5' 3") Body mass index is 36.28 kg/m. Her exam remains unchanged from the prior visit October 01, 2019. Ms. Cullen is awake, alert, and interactive on examination. Her countenance is bright and cheerful today. Her mental status is intact to conversation. Her s peech is clear, and her language shows no deficits of comprehension. Her pupils are equal, round, and reactive to light. Her extraocular eye movements are full in all directions without nystagmus. Her face is symmetric at rest and with a ctivation. Her hearing is intact to conversation. Her palate elevates symmetric ally. Her tongue protrudes in the midline. Her muscle bulk and tone are normal throughout. Her strength is 5/5 in proximal and distal muscle groups in all fo ur limbs. Her sensation is intact to light touch throughout. Finger to nose an d rapid alternating movements are intact bilaterally. Her gait was normal and n arrow based with an intact tandem gait. She has mildly labored, audible breat radha at baseline. Heart sounds are regular. Extremities are warm without edema . I interrogated and reprogrammed her vagal nerve stimulator. The stimulation intensity was 2.75 MA (increased to 3.0 MA). Frequency of 15 Hz and a pulse width of 130 s. On time is 30 seconds with an off time of 1.1 minutes. Auto-stim intensity 2.75 MA (increased to 3.0 MA). Auto-stim on-time 60 seconds (decreased to 30 seconds). Auto-stim threshold Sensitivity 30% (decreased to 20%). Magnet current strength was 3.00 mA (increased to 3.25 MA). Magnet on time of 60 seconds and a magnet pulse width of 130 s. System diagnostics reveal no problems and the Sentiva M1000 was placed Aug 03 019. Previously her generator was implanted on 02/25/2016. There is 75 -100% of the battery life remaining. IMPRESSION/PLAN: Summary: Summer Cullen is a 49 y.o.-year-old, right-handed female with refractory epil epsy of cryptogenic cause. Inpatient video EEG monitoring on 3 past occasions a [facility] 1996, [facility] in 2010, and [facility] in May did not clarify her localization and has deemed she is not a candidate for res ective epilepsy surgery. Overall Dr. Tsai has suspected that she has a frontal lobe focus but her EEG shows bilateral abnormalities and her other testing has not helped guide us in determining a possible focus for her seizures. Brain MRI with and without contrast enhancement on May 06, 2011 showed bifrontal encephal omalacia worse over the right frontal region with evidence of her previous crani otomy. There is no evidence of mesial temporal sclerosis. Neuropsychological t esting 2011 showed cognitive changes but no clear lateralized pattern o f dysfunction. 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 The addition of Banzel to her regimen previously made some improvement in her seizure frequency and higher doses seemed to have made her seizures milder and of shorter duration . For now she will continue Banzel 1600 mg BID. She will also continue her cabezas otrigine 200 mg po three times daily. I sent prescription refills. Other considerations for alternating antiseizure medications were zonisamide or Onfi. She has a history of kidney stones that were previously attributed to top iramate and since zonismide carries the same potential risk I have avoided that agent. She takes alprazolam on schedule and PRN so combining benzodiazepines is risky and therefore Onfi has not been chosen. She is tolerating her VNS well and tolerated > 10 minutes of today's setting changes as noted above without any c/o discomfort. She stopped taking Chantix since this increased her seizure frequency and has re sumed smoking but she continues to cut back. We revisited the importance of sm oking cessation for numerous health reasons, specifically the effect continued s moking has on her already very poor lung health. I have encouraged her to continue increasing her compliance with the treatment o f her sleep apnea, emphasizing the connection with her sleep apnea and her seizu re and migraine control. I informed and she understands that state driving laws in [place] and [place] re strict driving for 6 months following an episode of altered awareness. Addition ally, she understands she should exercise caution and avoid situations that coul d be dangerous if a seizure were to occur such as swimming without a trained lif eguard present, unsupervised bathing in a bathtub, climbing tall heights or arturo ers, operating dangerous machinery or exposure to open heat sources. Since at this point it does not appear resective surgery is an option for her si nce she seems to have a primary generalized epilepsy condition rather than a par tial onset epilepsy, she is interested in pursuing the deep brain stimulator pre sented as an option. I have given her printed information to review further reg arding deep brain stimulation for epilepsy from the [employer] website. We discussed this info and she will review this further, but she is interested in going ahead with a meeting with neurosurgery to discuss the surgical process further. I will discuss her case with Dr. Tsai and we will likely plan to pre sent her case at one of our upcoming epilepsy surgery conferences then follow-up with the patient for proceeding with neurosurgery consultation regarding implan tation of a deep brain stimulator to treat her epilepsy. 2) Migraines - She continues nortriptyline and rizatriptan prn and follows with Karmen Miles in our migraine clinic. She continues to decrease use of ibupro fen and hydrocodone. I would like to see her back in 3 months to see how she is doing but she underst ands if things are not going well in the interim she should contact our office s ooner. In the meantime if we are able to discuss her case at our epilepsy delta max conference, I will give her a call at home to discuss our epilepsy team rec ommendations. Her home #[phone]. She gives her permission to [facility] regarding our recommendations on her voicemail since she typically does not answer her phone. Over 50% of this 44 minute visit was spent counseling the patient and her family , coordinating care and discussing the treatment plan. Time in 1145 Time out 1229 [place] OPERATOR INSULATION documented in this encounter Plan of Treatment Care Team Description Date Type Specialty Hortencia Stewart APRN [address] [facility] [address] [place] [address] [phone] 03/31/2020 Office Visit Neurology documented as of this encounter Visit Diagnoses Diagnosis Partial epilepsy with impairment of con sciousness, intractable (HCC) Localization-related (focal) (partial) epilepsy and epileptic syndromes with complex partial seizures, with intractable epilepsy documented in this encounter
--- OUTSIDE RECORDS SUMMARY | 2020-02-11 03:07 | XMS REPORT | Clinical Summary ---
Author Author [facility] Organization [facility] Address Unknown Phone Unavailable Care Team Providers Care Early Learning Teacher Name Role Phone Freedom Villarreal PCP Allergies Comments Active Allergy Reactions Severity Noted Date Interacts with epilepsy meds Aspirin Other (See 02/13/2016 Comments) Lip swelling Acetaminophen-Codeine 12/11/2019 Medications End Date Status Medication Sig Dispensed Refills Start Date Active medroxyPROGESTERone Inject 150 mg 0 (DEPO-PROVERA) 150 mg/mL intramuscular injection ly take as directed. Every 6 weeks Active calcium carbonate-vitamin Take 1 tablet 0 D3 600 mg(1,500mg) -800 by mouth 3 unit Tab (three) times a day. Active venlafaxine 225 mg ER 24 Take 225 mg 0 hr tablet by mouth every morning. Active simvastatin (ZOCOR) 20 MG Take 20 mg by 0 tablet mouth nightly. Active ibuprofen (ADVIL,MOTRIN) Take 800 mg 0 800 MG tablet by mouth 3 (three) times a day as needed. Active diphenhydrAMINE Take 50 mg by 0 (BENADRYL) 25 mg capsule mouth as needed (Take with Hydrocodone to stop itching). Active budesonide-formoterol Inhale 2 0 (SYMBICORT) 160-4.5 puffs 2 (two) mcg/actuation inhaler times a day. Active HYDROcodone-acetaminophen Take 1 tablet 0 (NORCO) 5-325 mg per by mouth tablet every 4 (four) hours as needed for pain. Active UNABLE TO FIND daily. 0 CENTRUM ADULTS TAKING 1 TAB DAILY. Active solifenacin (VESICARE) 10 Take 10 mg by 0 MG tablet mouth daily. Active ALBUTEROL INHL Inhale 2 0 puffs every 4 (four) hours as needed. Active ondansetron (ZOFRAN) 8 MG Take 8 mg by 0 tablet mouth every 4 (four) hours as needed for nausea. Active linaclotide (LINZESS) 145 Take 145 mcg 0 mcg cap by mouth daily. Active montelukast (SINGULAIR) Take 10 mg by 0 10 mg tablet mouth nightly. Active folic acid (FOLVITE) 1 MG Take 1 tablet 90 tablet 3 tabletIndications: (1 mg total) 8 prevent neural tube by mouth defect daily. Active ipratropium-albuterol Inhale 3 mL 0 (DUO-NEB) 0.5-3 mg/3 mL via nebulizer nebulizer 4 (four) times a day as needed. Active ALPRAZolam (XANAX) 0.25 Take 0.25 mg 0 MG tablet by mouth 3 (three) times a day. Active chrom annette/brindal tamayo Take 1 tablet 0 (GARCINIA CAMBOGIA ORAL) by mouth daily. Active cyanocobalamin (VITAMIN Take 500 mcg 0 B-12) 500 MCG tablet by mouth daily. Active simethicone (ANTI-GAS Take 360 mg 0 ULTRA STRENGTH) 180 mg by mouth capsule every 6 (six) hours as needed for flatulence. Active melatonin 10 mg Tab Take 1 tablet 0 by mouth nightly. Active OXYGEN THERAPY Use 3.5 L in 0 each nostril nightly. Active carvedilol (COREG) 25 MG Take 25 mg by 5 08/20 tablet mouth 2 (two) 9 times a day. 12/16/2020 Active nortriptyline (PAMELOR) Take 1 90 capsule 3 50 MG capsuleIndications: capsule (50 0 Migraine without aura and mg total) by without status mouth migrainosus, not nightly. intractable 12/16/2020 Active rizatriptan (MAXALT) 10 Take 1 tablet 10 tablet 11 MG tabletIndications: (10 mg total) 0 Chronic migraine without by mouth as aura without status needed for migrainosus, not migraine. intractable After 2 hrs, if symptoms persist, may repeat dose x1. Max 2 doses in 24 hrs. Active rufinamide (BANZEL) 400 Take 4 720 tablet 3 MG tabletIndications: tablets 0 Partial epilepsy with (1,600 mg impairment of total) by consciousness, mouth 2 (two) intractable (HCC) times a day. Active lamoTRIgine (LAMICTAL) Take 1 tablet 270 tablet 3 0 200 MG tabletIndications: (200 mg 0 Partial epilepsy with total) by impairment of mouth 3 consciousness, (three) times intractable (HCC) a day. Active brivaracetam 100 mg Take 100 mg 180 tablet 1 TabIndications: focal by mouth 2 0 epilepsy (two) times a day. 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 Anxiety 09/20/2018 Last Assessment & Plan: Mood stable -Continue Effexor Migraine without aura and without status migrainosus, not intractable 09/20/2018 Last Assessment & Plan: No current symptoms -Avoid narcotics -continue sumatriptan Seizures 09/20/2018 Last Assessment & Plan: Recent increase in Banzel 08/31/[address] [facility] neurology -consult epilepsy for recommendations f or recent increase in seizure activity -Continue home anticonvulsants-Banzel a nd lamotrigine -Seizure precautions COPD with acute exacerbation 09/20/2018 Last Assessment & Plan: Increase in sputum amt and color CXR neg, Resp Viral panel neg; Flu vacc ine given Jul 2018 -Azithromycin and prednisone 40mg po -Neb treatment -Continue Breo (substituted for Symbico rt) and singulair -tobacco cessation discussed and encour aged; recently stopped chantix due to lowering seizure threshold Chronic pain 09/20/2018 Last Assessment & Plan: Back pain, migraines Polypharmacy, mistaken dosing of medica tion thought contributed to admission -Allergies to ASA and Acetaminophen -Discontinue NSAIDS due to ERNESTO Prior to admission Partial epilepsy with impairment of consciousness, in tractable 02/21/2013 Overview: ICD-10 conversion Resolved Problems Problem Noted Date Resolved Date Hyperglycemia 09/21/2018 09/22/2018 Last Assessment & Plan: Likely steroid induced -SSI for elevations -check hgb A1c Tachycardia 09/20/2018 09/22/2018 Overview: reason for coreg L ast Assessment & Plan: Likely COPD exacerbatio contibuting -Continue Coreg and monitor ERNESTO (acute kidney injury) 09/20/2018 09/22/2018 Last Assessment & Plan: Cr 2 at OSH (was 0.9 11 days prior) Improved with IVF to 0.8; likely preren al --Avoid nephrotoxic agents including IV contrast, NSAID's, ACEi's, & ARB's --Keep MAP>65 to maintain adequate harriet l perfusion. Encephalopathy 09/19/2018 09/22/2018 Last Assessment & Plan: improved Considerations include Polypharmacy vs seizure vs metabolic -consult epilepsy for seizure recommend ations -consult SW for discharge planning (ass istance with medications) Encounters Care Team Description Date Type Specialty Hortencia Stewart APRN Seizures 01/09/2020 Telephone Neurology Hortencia Stewart APRN Partial epilepsy with impairment of cons ciousness, intractable (HCC) 12/31/2019 Office Visit Neurology Samy Tsai MD 12/28/2019 Documentation Neurology Hortencia Stewart APRN Prior Authorization (Briviact) 12/18/2019 Telephone Neurology Samy Tsai MD Migraine without aura and without status migrainosus, not intractable; Chronic migraine without aura without status migrainosus, not intractable 12/11/2019 Hospital Neurology - Encounter 12/17/2019 Hortencia Stewart APRN Partial epilepsy with impairment of cons ciousness, intractable (HCC) 12/11/2019 Hospital Neurology Encounter Hortencia Stewart APRN Partial epilepsy with impairment of cons ciousness, intractable (HCC) (Primary Dx) 11/12/2019 Orders Only Neurology from Last 3 Months Immunizations Name Administration Dates Next Due Influenza QIV (IM) 12/15/2019 Family History Medical History Relation Name Comments No Known Problems Brother No Known Problems Brother Migraines Cousin No Known Problems Daughter Alcohol abuse Father Diabetes Father Heart disease Father Hyperlipidemia Father Alzheimer's disease Mother Hyperlipidemia Mother Migraines Mother Osteoporosis Mother Heart disease Other PAT. SIDE FAMILY HX Heart disease Other MAT. SIDE FAMILY HX Rheum arthritis Other MAT. SIDE FAMILY HX No Known Problems Sister No Known Problems Son Relation Name Status Comments Brother Alive Brother Alive Cousin Daughter Alive Father Alive Mother Alive Other PAT. SIDE Other MAT. SIDE Sister Alive Son Alive Social History Date Tobacco Use Types Packs/Day Years Used Started: 1986 Current Every Day Smoker Cigarettes 0.5 35 Smokeless Tobacco: Never Used Tobacco Cessation: Ready to Quit: Yes; Keshia rico Given: Yes Comments: "I've tried everything there is" Drinks/Week oz/Week Comments Alcohol Use 0 Standard [...] Comments Vital Sign 123/62 12/31/2019 11:06 AM CASINO SLOT SUPERVISOR Blood Pressure 108 12/31/2019 11:06 AM [employer]INO SLOT SUPERVISOR Pulse 36.6 C (97.8 F) 12/17/2019 8:50 AM [employer]INO SLOT SUPERVISOR Temperature 16 12/17/2019 8:50 AM CASINO SLOT SUPERVISOR Respiratory Rate 94% 12/17/2019 8:50 AM CASINO SLOT SUPERVISOR Oxygen Saturation - - Inhaled Oxygen Concentration 92.9 kg (204 lb 12.8 oz) 12/31/2019 11:06 AM CASINO SLOT SUPERVISOR Weight 160 cm (5' 3") 12/31/2019 11:06 AM CASINO SLOT SUPERVISOR Height 36.28 12/31/2019 11:06 AM CASINO SLOT SUPERVISOR Body Mass Index Plan of Treatment Care Team Description Date Type Specialty Hortencia Stewart, KNOWLEDGE MANAGEMENT CONSULTANT [address] [address] [phone] 03/31/2020 Office Visit Neurology Health Maintenance Due Date Last Done Comments Medicare Annual Wellness 1970 Spirometry # 1970 Td # 1970 Cervical Cancer Screening 1991 via Pap Smear Tobacco Cessation 12/31/2020 12/31/2019, Counseling # 10/01/2019, 06/29/2019, Additional history exists Pneumococcal Vaccine: Completed 01/17/2014 Pediatrics (0 to 5 Years) and At-Risk Patients (6 to 64 Years) Influenza Vaccine Completed 12/15/2019, 08/22/2018, 08/25/2016, Additional history exists Implants Device Identifier Shelf Expiration Date Model / Serial / L ot Implanted Type Area Manufactur er 04/04/2021 1000 / [id number] / Implant Generator Model 1000 Sen Non-Tissue Left: Chest [employer] Tiva - [id number] Implant Wall , [employer] Implanted: Qty: 1 on 08/03/2019 by Santos Bhatti MD at [facility] Hardware In Both Lower Legs Screws And Plate In Skull Device Identifier Shelf Expiration Date Model / Serial / L ot Explanted Type Area Manufactur er 12/19/2016 105 / [id number] / Implant Generator Aspire Hc Model Non-Tissue CYBE [employer] 105 - [id number] Implant , INC Implanted: Qty: 1 on 02/25/2016 by Sj Vivar MD at [facility] Explanted: Qty: 1 on 08/03/2019 by Santos Bhatti MD at [facility] Description:09/13/18 mzinn, MRI: per website: 1.5T or 3T- normal mode- if implant in chest or armpit, exclusion zone to be noted in chest.. S/R or Receive head coil okay- or full body (minus exclusion zone) device off prior to MRI. Transmit head or extremity coil: No restrictionsTransmit body coil: .15 minutes of active scan time within a 30 minute window time Website: http://www.epilepsieliga.nl/t_files /fbn-ywpqplmauo-hgi-vqs-qzbqiqp-pwh mzgtw-nsa-pwo-1549_2017.pdf Vagal Nerve Stimulator Explanted: Qty: 1 on 02/25/2016 by Sj Vivar MD at [facility] Description:[id number] Procedures Comments Procedure Name Priority Date/Time Associated Diag nosis GLUCOSE POC Routine 12/17/2019 6:12 AM [employer]INO [employer]OT SUPERVISOR EEG VIDEO MONITORING Routine 12/17/2019 12:10 AM [employer]INO [employer]OT SUPERVISOR GLUCOSE POC Routine 12/16/2019 11:07 PM [employer]INO [employer]OT SUPERVISOR EEG VIDEO MONITORING Routine 12/16/2019 12:10 AM [employer] SUPERVISOR EEG VIDEO MONITORING Routine 12/15/2019 12:10 AM CASINO SLOT SUPERVISOR EEG VIDEO MONITORING Routine 12/14/2019 12:10 AM [employer] SUPERVISOR EEG VIDEO MONITORING Routine 12/13/2019 12:10 AM CASINO SLOT SUPERVISOR TRANSCRIBED EEG REPORT 12/12/2019 8:28 AM [employer]INO [employer]OT SUPERVISOR EEG VIDEO MONITORING Routine 12/12/2019 12:10 AM CASINO SLOT SUPERVISOR from Last 3 Months Results * GLUCOSE POC (12/17/2019 6:12 AM CASINO SLOT SUPERVISOR) Only the most recent of 2 results within the time period is included. Glucose POC 102 (H) 70 - 100 mg/dL [facility] Specimen Performing Organization Address City/State/Zipcode Ph one Number [address] [address] LABORATORIES * EEG video monitoring (12/17/2019 12:10 AM CASINO SLOT SUPERVISOR) Specimen Narrative Performed At Samy Tsai MD 12/17/2019 1:48 PM HS NEUR O Name: RAJIV CULLEN _[id number] Date of : 1970 Attending Physician: Samy Tsai MD DATE OF STUDY: 12/17/2019 EEG# [id number] OBJECT: Evaluate for epilepsy using 2 1-channel continuous video EEG monitoring. FINDINGS: The background consisted of a normal symmetric posterior predominant alpha frequency r hythm seen symmetrically during wakefulness. There was progres magdalena into sleep with normal symmetric sleep morphologies. There w ere occasional bursts of theta frequency slowing as well as high voltage sharp appearing discharges seen over the right posterio r temporal region, typically with phase reversal at the T6 electrode. In addition to these focal abnormalities, there wer e occasional brief bursts of generalized but bifrontally predomin ant high voltage poorly formed spike and wave discharges that t ypically lasted up to 2 or 3 seconds. The frequency of the disch arges ranged from 2 to 3 Hz. manufacturing design engineer showed a regular rhythm throughout. PUSHBUTTON EVENTS: There were no push button events recorded. IMPRESSION: This video EEG telemetry was recorded for approximately 13 hours and captured n o pushbutton events and no electrographic seizures. As described previously, there were occasional bursts of theta frequency sl owing as well as high voltage sharp appearing discharges seen over the right posterior temporal region, typically with phase r eversal at the T6 electrode. In addition to these focal abnormalities, there were occasional brief bursts of generalized but bifrontally predominant high voltage poorly formed spike and wave discharges that typically lasted up to 2 or 3 seco nds. The frequency of the discharges ranged from 2 to 3 Hz. Ove rall, these findings are consistent with an idiopathic primary g eneralized epilepsy condition. Samy Tsai MD Performing Organization Address City/State/Zipcode Ph one Number [facility] * EEG video monitoring (12/16/2019 12:10 AM CASINO SLOT SUPERVISOR) Specimen Narrative Performed At Samy Tsai MD 12/17/2019 8:07 AM [facility] Name: RAJIV CULLEN _[id number] Date of : 1970 Attending Physician: Samy Tsai MD DATE OF STUDY: 12/16/2019 EEG# [id number] OBJECT: Evaluate for epilepsy using 2 1-channel continuous video EEG monitoring. FINDINGS: The background consisted of a normal symmetric posterior predominant alpha frequency r hythm seen symmetrically during wakefulness. There was progres magdalena into sleep with normal symmetric sleep morphologies. There w ere occasional bursts of theta frequency slowing as well as high voltage sharp appearing discharges seen over the right posterio r temporal region, typically with phase reversal at the T6 electrode. In addition to these focal abnormalities, there wer e occasional brief bursts of generalized but bifrontally predomin ant high voltage poorly formed spike and wave discharges that t ypically lasted up to 2 or 3 seconds. The frequency of the disch arges ranged from 2 to 3 Hz. manufacturing design engineer showed a regular rhythm throughout. PUSHBUTTON EVENTS: There were no push button events recorded. IMPRESSION: This 24 hour video EEG te lemetry captured no pushbutton events and no electrographic seizures. As described previously, there were occasional burst s of theta frequency slowing as well as high voltage sharp a ppearing discharges seen over the right posterior temporal regio n, typically with phase reversal at the T6 electrode. In yony tion to these focal abnormalities, there were occasional br ief bursts of generalized but bifrontally predominant high voltag e poorly formed spike and wave discharges that typically lasted u p to 2 or 3 seconds. The frequency of the discharges ranged from 2 to 3 Hz. Overall, these findings are consistent with an i diopathic primary generalized epilepsy condition. Samy Tsai MD Performing Organization Address City/State/Zipcode Ph one Number [facility] * EEG video monitoring (12/15/2019 12:10 AM CASINO SLOT SUPERVISOR) Specimen Narrative Performed At Samy Tsai MD 12/16/2019 8:39 AM [facility] O Name: RAJIV CULLEN _[id number] Date of : 1970 Attending Physician: Samy Tsai MD DATE OF STUDY: 12/15/2019 EEG# [id number] OBJECT: Evaluate for epilepsy using 2 1-channel continuous video EEG monitoring. FINDINGS: The background consisted of a normal symmetric posterior predominant alpha frequency r hythm seen symmetrically during wakefulness. There was progres magdalena into sleep with normal symmetric sleep morphologies. There w ere occasional bursts of theta frequency slowing as well as high voltage sharp appearing discharges seen over the right posterio r temporal region, typically with phase reversal at the T6 electrode. In addition to these focal abnormalities, there wer e occasional brief bursts of generalized but bifrontally predomin ant high voltage poorly formed spike and wave discharges that t ypically lasted up to 2 or 3 seconds. The frequency of the disch arges ranged from 2 to 3 Hz. manufacturing design engineer showed a regular rhythm throughout. PUSHBUTTON EVENTS: There were 2 elect rographic seizures recorded. The first occurred at appro ximately 2:56 AM. The patient was lying in bed and appeared t o be awake. The EEG demonstrated frequent bursts of high-vo ltage generalized but bifrontally predominant sharp and wave activity with a frequency of 2 to 3 Hz. There was a sudden burs t of high-voltage generalized spike discharges followed b y an electro-decremental response that lasted slightly more than 1 second followed by generalized but bifrontally predominate spike and wave discharges with a frequency of 2 Hz. Approximate ly 10 seconds into the onset of the electrographic seizure the patient appeared to look up and slightly towards the right. Rhoda schafer then fidgeted in bed slightly for just a couple of seconds. She then appeared to be staring and then started to moan slight ly and had some automatisms particularly of the left petit nd. This seizure lasted approximately 40 seconds and some bifro ntal slowing was seen afterwards. The next seizure occurred at approximat turner 8:34 AM. Unfortunately at this time, because of the prior seizure, she had removed some of the electrodes so there was electrode artifact that obscured several of the channels. She was lying in bed and her eyes were closed but she appeared t o be awake based on the background findings. Through the elec trode artifact there was the suggestion of some rhythmic delta f requency slowing seen bifrontally. She then had eye deviati on to the right followed by clonic movements of the legs and arms w ith tonic extension of the arms and wrists followed by tonic exten magdalena of the legs. This seizure lasted slightly more than 1 min марина and generalized slowing was seen afterwards. IMPRESSION: This 24 hour video EEG te lemetry captured 2 electrographic seizures as described ab ove. With the first seizure, the focus of onset appeared to be fairly generalized. The second seizure was obscured by elec trode artifacts but again there was a suggestion of a generalized /bifrontally predominant focus of onset. In addition, interict ally as described previously, there were occasional brief bursts of poorly formed generalized but bifrontally predominate spike and wave discharges that could last up to 2 seconds. The frequency of the discharges was 2 to 3 Hz. 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 Samy Tsai MD Performing Organization Address City/State/[facility] Ph one Number [facility] * EEG video monitoring (12/14/2019 12:10 AM [employer]INO SLOT SUPERVISOR) Specimen Narrative Performed At Samy Tsai MD 12/15/2019 9:41 AM [facility] Name: RAJIV CULLEN _[id number] Date of : 1970 Attending Physician: Samy Tsai MD DATE OF STUDY: 12/14/2019 EEG# [id number] OBJECT: Evaluate for epilepsy using 2 1-channel continuous video EEG monitoring. FINDINGS: The background consisted of a normal symmetric posterior predominant alpha frequency r hythm seen symmetrically during wakefulness. There was progres magdalena into sleep with normal symmetric sleep morphologies. There w ere occasional bursts of theta frequency slowing as well as high voltage sharp appearing discharges seen over the right posterio r temporal region, typically with phase reversal at the T6 electrode. In addition to these focal abnormalities, there wer e occasional brief bursts of generalized but bifrontally predomin ant high voltage poorly formed spike and wave discharges that t ypically lasted up to 2 or 3 seconds. The frequency of the disch arges ranged from 2 to 3 Hz. manufacturing design engineer showed a regular rhythm throughout. PUSHBUTTON EVENTS: There were no push button events recorded. IMPRESSION: This 24 hour video EEG te lemetry captured no pushbutton events and no electrographic seizures. As described previously, brief bursts typically last ing less than 1 second of theta frequency slowing as well as high voltage sharp appearing discharges were seen over the right pos terior temporal region. This indicates focal cortical and subco rtical dysfunction in this region and could represent a potential focus for epileptogenesis. In addition to these focal abnormalitie s, there were occasional brief bursts of poorly formed generaliz ed but bifrontally predominate spike and wave discharges t hat could last up to 2 seconds. The frequency of the dischar ges was 2 to 3 Hz. These findings are more consistent with an id iopathic primary generalized epilepsy condition. Samy Tsai MD Performing Organization Address City/State/[facility] Ph one Number [facility] * EEG video monitoring (12/13/2019 12:10 AM CASINO SLOT SUPERVISOR) Specimen Narrative Performed At Samy Tsai MD 12/14/2019 9:16 AM [facility] Name: RAJIV CULLEN _[id number] Date of : 1970 Attending Physician: Samy Tsai MD DATE OF STUDY: 12/13/2019 EEG# [id number] OBJECT: Evaluate for epilepsy using 2 1-channel continuous video EEG monitoring. FINDINGS: The background consisted of a normal symmetric posterior predominant alpha frequency r hythm seen symmetrically during wakefulness. There was progres magdalena into sleep with normal symmetric sleep morphologies. There w ere occasional bursts of theta frequency slowing as well as high voltage sharp appearing discharges seen over the right posterio r temporal region, typically with phase reversal at the T6 electrode. 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 PUSHBUTTON EVENTS: There were no push button events recorded. IMPRESSION: This 24 hour video EEG te lemetry captured no pushbutton events and no electrographic seizures. However, brief bursts typically lasting less than 1 se cond of theta frequency slowing as well as high voltage sharp a ppearing discharges were seen over the right posterior temporal region. This indicates focal cortical and subcortical dysfunct ion in this region and could represent a potential focus for e pileptogenesis. Samy Tsai MD Performing Organization Address City/State/Zipcode Ph one Number [facility] * TRANSCRIBED EEG REPORT (12/12/2019 8:28 AM CASINO [employer]OT SUPERVISOR) Procedure Note Samy Tsai MD - 12/12/2019 8:28 AM [employer]INO [employer]OT SUPERVISOR Name: RAJIV CULLEN _[id number] Date of : 1970 Attending Physician: Samy Tsai MD Date of Procedure: 12/11/2019 DATE OF STUDY: 12/11/2019 EEG# [id number] OBJECT: Evaluate for epilepsy using 21-channel continuous video EEG monitoring. FINDINGS: The background consisted of a normal symmetric posterior predominant alpha frequency rhythm seen symmetrically during wakefulness. There was progression into sleep with normal symmetric sleep morphologies. There were occasional bursts of theta frequency slowing as well as high voltage sharp appearing discharges seen over the right posterior temporal region, typically with phase reversal at the T6 electrode. manufacturing design engineer showed a regular rhythm throughout. PUSHBUTTON EVENTS: There were no pushbutton events recorded. IMPRESSION: This video EEG telemetry was recorded for approximately 14 hours and captured no pushbutton events and no electrographic seizures. However, brief bursts typically lasting less than 1 second of theta frequency slowing as well as high voltage sharp appearing discharges were seen over the right posterior temporal region. This indicates focal cortical and subcortical dysfunction in this region and could represent a potential focus for epileptogenesis. 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 FINDINGS: The background consisted of a normal symmetric posterior predominant alpha frequency r hythm seen symmetrically during wakefulness. There was progres magdalena into sleep with normal symmetric sleep morphologies. There w ere occasional bursts of theta frequency slowing as well as high voltage sharp appearing discharges seen over the right posterio r temporal region, typically with phase reversal at the T6 electrode. 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 PUSHBUTTON EVENTS: There were no push button events recorded. IMPRESSION: This 24 hour video EEG te lemetry captured no pushbutton events and no electrographic seizures. However, brief bursts typically lasting less than 1 se cond of theta frequency slowing as well as high voltage sharp a ppearing discharges were seen over the right posterior temporal region. This indicates focal cortical and subcortical dysfunct ion in this region and could represent a potential focus for e pileptogenesis. Samy Tsai MD Performing Organization Address [facility] from Last 3 Months Insurance Type Payer Benefit Subscriber ID Effective Phone Address Plan / Dates Group MEDICARE REPLACEMENT PLAN AETNA xxxxxxxxxxxx 2019-P MEDICARE resent ADVANTAGE LEGACY PPO MEDICAID MANAGED CARE [employer] xxxxxxxxxxx 0- [place] Present HEALTH [id number] 1 SubhashRajiv Gotti Personal/F Self [address] [place] (Home) [place], [place] [address] Corey Cullenjosseline Gotti Personal/F Self [address] [place] (Home) [place], [place] [address] Advance Directives For more information, please contact: [phone] 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
--- OUTSIDE RECORDS SUMMARY | 2020-02-11 03:07 | XMS REPORT | Encounter Summary ---
Author Author [facility] Organization [facility] Address Unknown Phone Unavailable Care Team Providers Care Skip Miner Blasting Name Role Phone Freedom Villarreal PCP Encounter Details Care Team Description Date Type Department Samy Tsai MD [address] [place], [place] [id number] 12/28/2019 Documentation [facility] [address] [place], [place] [id number] Social History Date Tobacco Use Types Packs/Day [...] history available. documented as of this encounter Plan of Treatment Care Team Description Date Type Specialty Hortencia Stewart, ASBESTOS SHINGLE INSPECTOR [address] [address] [phone] 03/31/2020 Office Visit Neurology documented as of this encounter Visit Diagnoses Not on filedocumented in this encounter
--- OUTSIDE RECORDS SUMMARY | 2020-02-11 03:07 | XMS REPORT | Encounter Summary ---
Author Author [facility] Organization [facility] Address Unknown Phone Unavailable Care Team Providers Care Kinesiologist Name Role Phone EldonFreedom correa PCP Reason for Visit * Auth/Cert Referred By Contact Referred To Contact Status Reason Specialty Diagnoses / Procedures Diagnoses seizures Partial epilepsy (HCC) Encounter Details Care Team Description Date Type Department Samy Tsai MD [address] [id number] Migraine without aura and without status migrainosus, not intractable; Chronic migraine without aura without status migrainosus, not intractable 12/11/2019 [facility] - Encounter [address] [facility] 12/17/2019 [place], [place] [id number] Social History Date Tobacco Use Types Packs/Day [...] Signs Reading Time Taken Comments Vital Sign 117/63 12/17/2019 8:50 AM NANOSCIENCE TECHNICIAN Blood Pressure 93 12/17/2019 8:50 AM NANOSCIENCE TECHNICIAN Pulse 36.6 C (97.8 F) 12/17/2019 8:50 AM NANOSCIENCE TECHNICIAN Temperature 16 12/17/2019 8:50 AM NANOSCIENCE TECHNICIAN Respiratory Rate 94% 12/17/2019 8:50 AM NANOSCIENCE TECHNICIAN Oxygen Saturation - - Inhaled Oxygen Concentration 92 kg (202 lb 12.8 oz) 12/11/2019 10:50 AM NANOSCIENCE TECHNICIAN Weight 160 cm (5' 3") 12/11/2019 10:50 AM NANOSCIENCE TECHNICIAN Height 35.92 12/11/2019 10:50 AM NANOSCIENCE TECHNICIAN Body Mass Index documented in this encounter Discharge Summaries * Samy Tsai MD - 12/17/2019 8:50 AM NANOSCIENCE TECHNICIAN Patient Demographic Information: Patient: Rajiv Cullen Age: 49 y.o. : 1970 Admit Date: 12/11/2019 Admitting Physician: Samy Tsai MD Discharge Physician: Samy Tsai MD PCP of Record: Freedom Villarreal MD Discharge Date: 12/17/2019 Admission Diagnoses: seizures Partial epilepsy (HCC) Discharge Diagnoses: Active Hospital Problems Diagnosis SNOMED CT(R) Date Noted Epilepsy (HCC) EPILEPSY 12/11/2019 Sleep apnea SLEEP APNEA 12/11/2019 Migraine MIGRAINE 12/11/2019 Depression DEPRESSIVE DISORDER 12/11/2019 Partial epilepsy (HCC) LOCALIZATION-RELATED EPILEPSY 12/11/2019 Resolved Hospital Problems No resolved problems to display. Pre-Hospital Medications: Medications Prior to Admission Medication Sig Dispense Refill Last Dose ALBUTEROL INHL Inhale 2 puffs every 4 (four) hours as needed. Unknown at Unknown time ALPRAZolam (XANAX) 0.25 MG tablet Take 0.25 mg by mouth 3 (three) times a da y. Unknown at Unknown time brivaracetam (BRIVIACT) 50 mg tablet Take 2 tablets (100 mg total) by mouth 2 (two) times a day. 120 tablet 5 Unknown at Unknown time budesonide-formoterol (SYMBICORT) 160-4.5 mcg/actuation inhaler Inhale 2 puf fs 2 (two) times a day. Unknown at Unknown time calcium carbonate-vitamin D3 600 mg(1,500mg) -800 unit Tab Take 1 tablet by mouth 3 (three) times a day. Unknown at Unknown time carvedilol (COREG) 25 MG tablet Take 25 mg by mouth 2 (two) times a day. 5 Unknown at Unknown time chrom annette/brindal tamayo (GARCINIA CAMBOGIA ORAL) Take 1 tablet by mouth minh ly. Unknown at Unknown time cyanocobalamin (VITAMIN B-12) 500 MCG tablet Take 500 mcg by mouth daily. Unknown at Unknown time diphenhydrAMINE (BENADRYL) 25 mg capsule Take 50 mg by mouth as needed (Take with Hydrocodone to stop itching). Unknown at Unknown time folic acid (FOLVITE) 1 MG tablet Take 1 tablet (1 mg total) by mouth daily. 90 tablet 3 Unknown at Unknown time HYDROcodone-acetaminophen (NORCO) 5-325 mg per tablet Take 1 tablet by mouth every 4 (four) hours as needed for pain. Unknown at Unknown time ibuprofen (ADVIL,MOTRIN) 800 MG tablet Take 800 mg by mouth 3 (three) times a day as needed. Unknown at Unknown time ipratropium-albuterol (DUO-NEB) 0.5-3 mg/3 mL nebulizer Inhale 3 mL via nebu lizer 4 (four) times a day as needed. Unknown at Unknown time lamoTRIgine (LAMICTAL) 200 MG tablet Take 1 tablet (200 mg total) by mouth 3 (three) times a day. 270 tablet 3 Unknown at Unknown time linaclotide (LINZESS) 145 mcg cap Take 145 mcg by mouth daily. Unknown at Unknown time medroxyPROGESTERone (DEPO-PROVERA) 150 mg/mL injection Inject 150 mg intramu scularly take as directed. Every 6 weeks Unknown at Unknown time melatonin 10 mg Tab Take 1 tablet by mouth nightly. Unknown at Unknown anita e montelukast (SINGULAIR) 10 mg tablet Take 10 mg by mouth nightly. Unknown at Unknown time ondansetron (ZOFRAN) 8 MG tablet Take 8 mg by mouth every 4 (four) hours as needed for nausea. Unknown at Unknown time OXYGEN THERAPY Use 3.5 L in each nostril nightly. Unknown at Unknown time rufinamide (BANZEL) 400 MG tablet Take 4 tablets (1,600 mg total) by mouth 2 (two) times a day. 720 tablet 3 Unknown at Unknown time simethicone (ANTI-GAS ULTRA STRENGTH) 180 mg capsule Take 360 mg by mouth ev nicole 6 (six) hours as needed for flatulence. Unknown at Unknown time simvastatin (ZOCOR) 20 MG tablet Take 20 mg by mouth nightly. Unknown at U nknown time solifenacin (VESICARE) 10 MG tablet Take 10 mg by mouth daily. Unknown at Unknown time UNABLE TO FIND daily. CENTRUM ADULTS TAKING 1 TAB DAILY. Unknown at Unknow n time venlafaxine 225 mg ER 24 hr tablet Take 225 mg by mouth every morning. Un known at Unknown time Discharge Medications Unreviewed ALBUTEROL INHL 2 puffs, Inhalation, Every 4 hours PRN ALPRAZolam 0.25 MG tablet Commonly known as: XANAX 0.25 mg, Oral, 3 times daily Anti-Gas Ultra Strength 180 mg capsule Generic drug: simethicone 360 mg, Oral, Every 6 hours PRN brivaracetam 50 mg tablet Commonly known as: Briviact 100 mg, Oral, 2 times daily calcium carbonate-vitamin D3 600 mg(1,500mg) -800 unit Tab 1 tablet, Oral, 3 times daily carvediloL 25 MG tablet Commonly known as: COREG 25 mg, Oral, 2 times daily Ask about: Which instructions should I use? cyanocobalamin 500 MCG tablet Commonly known as: VITAMIN B-12 500 mcg, Oral, Daily diphenhydrAMINE 25 mg capsule Commonly known as: BENADRYL 50 mg, Oral, As needed folic acid 1 MG tablet Commonly known as: FOLVITE 1 mg, Oral, Daily GARCINIA CAMBOGIA ORAL 1 tablet, Oral, Daily HYDROcodone-acetaminophen 5-325 mg per tablet Commonly known as: NORCO 1 tablet, Oral, Every 4 hours PRN ibuprofen 800 MG tablet Commonly known as: ADVIL,MOTRIN 800 mg, Oral, 3 times daily PRN ipratropium-albuterol 0.5-3 mg/3 mL nebulizer Commonly known as: DUO-NEB 3 mL, Nebulization, 4 times daily PRN lamoTRIgine 200 MG tablet Commonly known as: LaMICtal 200 mg, Oral, 3 times daily Linzess 145 mcg capsule Generic drug: linaCLOtide 145 mcg, Oral, Daily medroxyPROGESTERone 150 mg/mL injection Commonly known as: DEPO-PROVERA 150 mg, Intramuscular, Take as directed, Every 6 weeks melatonin 10 mg Tab 1 tablet, Oral, Nightly montelukast 10 mg tablet Commonly known as: SINGULAIR 10 mg, Oral, Nightly ondansetron 8 MG tablet Commonly known as: ZOFRAN 8 mg, Oral, Every 4 hours PRN OXYGEN THERAPY 3.5 L, Nasal, Nightly rufinamide 400 MG tablet Commonly known as: BANZEL 1,600 mg, Oral, 2 times daily simvastatin 20 MG tablet Commonly known as: ZOCOR 20 mg, Oral, Nightly Symbicort 160-4.5 mcg/actuation inhaler Generic drug: budesonide-formoteroL 2 puffs, Inhalation, 2 times daily UNABLE TO FIND Daily, CENTRUM ADULTS TAKING 1 TAB DAILY. venlafaxine 225 mg ER 24 hr tablet 225 mg, Oral, Every morning Vesicare 10 MG tablet Generic drug: solifenacin 10 mg, Oral, Daily Allergies: Allergies Allergen Reactions Aspirin Other (See Comments) Interacts with epilepsy meds Tylenol-Codeine #3 [Acetaminophen-Codeine] Lip swelling Diet: Resume pre-hospital diet Activity Level: As tolerated. The patient understands that state driving laws in [place] and [place] restrict driving for 6 months following an episode of altered awareness, seizures, and/or spells that could prevent control of a vehicle. Additionally, the patient under stands to exercise caution and avoid situations that could be dangerous if a sei zure were to occur such as swimming without a trained dye can operator present, unsuper vised bathing in a bathtub, climbing tall heights or ladders, operating dangerou s machinery or exposure to open heat sources. Also, avoid sleep deprivation, al cohol, and illicit drug use. Discharge Condition: Good Code Status: Full Code Consults: None Procedures: VEEG from 114 to 12/17 Discharge Exam: Vitals: 12/17/19 0746 12/17/19 0850 BP: 117/63 Pulse: 98 93 Resp: 16 16 Temp: 36.6 C (97.8 F) SpO2: 97% 94% Weight: Height: General: Well-appearing in NAD. Cardiovascular: Regular rate, regular rhythm Lungs: Clear to auscultation. Abdomen: Soft, non tender Extremities: No clubbing, cyanosis, edema. Neuro: The patient is awake and alert. Speech is fluent and well articulated. Multi-step commands are easily followed. Eye movements are full without nystagmus. Pupils are equally reactive. The face and all extremities move symmetrically. Hearing is grossly intact There is no pronator drift or asterixis. Finger to nose testing is normal. Gait not evaluated. Disposition: Home self-care Work Release: May return to work if applicable Follow-Up: Follow-up with Dr. Tsai in 6 months or sooner. History Summary: Rajiv Cullen is a 49 y.o. 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 Sei zures description includes staring episodes as well as generalized tonic-clonic seizures. Previous inpatient video EEG monitoring completed at [facility] (1996), [facility] (2000), and [facility] (2015) have been unable to localize her seizures. She is maintained on Lamictal 200 mg 3 times daily, Banzel 1600 mg twice daily, and Briviact 100 mg twice daily, but continues to have breakthrough seizures. Most recently Briviact has been added to her regimen and she thinks that her se izures have become milder although she continues to have a seizure approximately once every 1 to 2 weeks. In the past, her generalized tonic-clonic seizures co uld result in leg fractures. Fortunately, this has not happened since 2010. Her last seizure prior to admission was reported on December 06. Hospital Course: She was admitted for phase I video EEG monitoring on 12/11 in a n attempt to localize her seizures to see if she is a candidate for surgical int ervention. She was monitored on video EEG throughout her stay. On admission s he was taking Lamotrigine (Lamictal) 200 mg three times daily, Rufinamide (Banze l) 1600 mg twice daily, and Brivaracetam (Briviact) 100 mg twice daily. Her ant iepileptic medications were gradually weaned to trigger her typical seizures for localization purposes. On the morning of 12/15, we captured 2 electrographic se izures. The first seizure had no localizable electrographic changes at onset. The second seizure unfortunately occurred after the patient had removed some of her electrodes. However, since that time, more generalized abnormalities have b een seen interictally suggesting that she does not fact have an idiopathic prima ry generalized form of epilepsy. There have been no further seizures since 12/15 , at which time her home antiepileptic drug regimen was restarted. She has an o utpatient appointment with Hortencia Stewart APRN on 12/31/2019 at 11:00 AM. Loreto Duncan RN, MSN, [facility]-, Epilepsy MELANIE [phone] 12/17/2019 8:51 AM I attest that I saw and examined the patient and discussed the patient's case wi th the advanced practice nurse. I agree with the details of the discharge summar y as described above with the following additions: Patient was admitted as part of a phase 1 presurgical evaluation. Initially, her EEG showed theta frequency slowing as well as sharp discharges over the right temporal region. However, as we continued to wean her off of medications in order to trigger her seizures for localization purposes, more generalized abnormalities were seen. 2 electrogra phic seizures were captured. The first seizure was characterized by a generaliz ed burst of high-voltage activity followed by an electro-decremental response. The patient proceeded to have a secondarily generalized tonic-clonic seizure. I n the postictal phase she removed some of the electrodes. Later the same day, s he had a breakthrough seizure with unclear localization because some of the elec trodes had been removed. However, the seizure was quite similar in appearance t o the first 1 that was captured. Postictally, she was quite confused and combat sandrita. She was given lorazepam. We then restarted her on her antiepileptic drug regimen. She had no further seizures and is tolerating her antiepileptic drugs on the day of discharge. She reports no current neurological symptoms. She fee ls well and states she is ready to go home. She will follow-up with Hortencia bro and has a follow-up scheduled on 12/31/2019. Because overall her EEG findings a re most consistent with an idiopathic primary generalized epilepsy condition alt manish there are some focal features at times but this is not inconsistent with a primary generalized epilepsy condition, I do not think that she is a candidate for a resective surgical option for the treatment of her drug-resistant epilepsy . She has a vagal nerve stimulator which she thinks has helped but she is proba joseph near maximal tolerable settings. Therefore, her options moving forward woul d be to consider additional medication trials although she has tried a number of medications in the past and trying additional medications at this stage would p robably be associated with a relatively small percentage chance for seizure impr ovement. The other opportunity for her would be to consider a deep brain stimul ator. This could improve her seizure frequency up to about 60%. We discussed t his as a potential option for her. She states that she would like some time to think about it and discuss it with her family. She can have this discussion fur ther with Hortencia Stewart in December at her next follow-up appointment. She under stands that in the interim, if things are not going well from a seizure standpoi nt, she should contact our office. . SCIENCE TECHNICIAN documented in this encounter Medications at Time of Discharge Start Date End Date Medication Sig Dispensed Refills ALBUTEROL INHL Inhale 2 0 puffs every 4 (four) hours as needed. ALPRAZolam (XANAX) 0.25 Take 0.25 mg 0 MG tablet by mouth 3 (three) times a day. budesonide-formoterol Inhale 2 0 (SYMBICORT) 160-4.5 puffs 2 (two) mcg/actuation inhaler times a day. calcium carbonate-vitamin Take 1 tablet 0 D3 600 mg(1,500mg) -800 by mouth 3 unit Tab (three) times a day. 08/20/2019 carvedilol (COREG) 25 MG Take 25 mg by 5 tablet mouth 2 (two) times a day. chrom annette/brindal tamayo Take 1 tablet 0 (GARCINIA CAMBOGIA ORAL) by mouth daily. cyanocobalamin (VITAMIN Take 500 mcg 0 B-12) 500 MCG tablet by mouth daily. diphenhydrAMINE Take 50 mg by 0 (BENADRYL) 25 mg capsule mouth as needed (Take with Hydrocodone to stop itching). 08/31/2018 folic acid (FOLVITE) 1 MG Take 1 tablet 90 tablet 3 tabletIndications: (1 mg total) prevent neural tube by mouth defect daily. HYDROcodone-acetaminophen Take 1 tablet 0 (NORCO) 5-325 mg per by mouth tablet every 4 (four) hours as needed for pain. ibuprofen (ADVIL,MOTRIN) Take 800 mg 0 800 MG tablet by mouth 3 (three) times a day as needed. ipratropium-albuterol Inhale 3 mL 0 (DUO-NEB) 0.5-3 mg/3 mL via nebulizer nebulizer 4 (four) times a day as needed. linaclotide (LINZESS) 145 Take 145 mcg 0 mcg cap by mouth daily. medroxyPROGESTERone Inject 150 mg 0 (DEPO-PROVERA) 150 mg/mL intramuscular injection ly take as directed. Every 6 weeks melatonin 10 mg Tab Take 1 tablet 0 by mouth nightly. montelukast (SINGULAIR) Take 10 mg by 0 10 mg tablet mouth nightly. 12/17/2019 12/16/2020 nortriptyline (PAMELOR) Take 1 90 capsule 3 50 MG capsuleIndications: capsule (50 Migraine without aura and mg total) by without status mouth migrainosus, not nightly. intractable ondansetron (ZOFRAN) 8 MG Take 8 mg by 0 tablet mouth every 4 (four) hours as needed for nausea. OXYGEN THERAPY Use 3.5 L in 0 each nostril nightly. 12/17/2019 12/16/2020 rizatriptan (MAXALT) 10 Take 1 tablet 10 tablet 11 MG tabletIndications: (10 mg total) Chronic migraine without by mouth as aura without status needed for migrainosus, not migraine. intractable After 2 hrs, if symptoms persist, may repeat dose x1. Max 2 doses in 24 hrs. simethicone (ANTI-GAS Take 360 mg 0 ULTRA STRENGTH) 180 mg by mouth capsule every 6 (six) hours as needed for flatulence. simvastatin (ZOCOR) 20 MG Take 20 mg by 0 tablet mouth nightly. solifenacin (VESICARE) 10 Take 10 mg by 0 MG tablet mouth daily. UNABLE TO FIND daily. 0 CENTRUM ADULTS TAKING 1 TAB DAILY. venlafaxine 225 mg ER 24 Take 225 mg 0 hr tablet by mouth every morning. 10/01/2019 12/31/2019 brivaracetam (BRIVIACT) Take 2 120 tablet 5 50 mg tabletIndications: tablets (100 focal epilepsy mg total) by mouth 2 (two) times a day. 10/01/2019 12/31/2019 lamoTRIgine (LAMICTAL) Take 1 tablet 270 tablet 3 200 MG tabletIndications: (200 mg Partial epilepsy with total) by impairment of mouth 3 consciousness, (three) times intractable (HCC) a day. 10/01/2019 12/31/2019 rufinamide (BANZEL) 400 Take 4 720 tablet 3 MG tabletIndications: tablets Partial epilepsy with (1,600 mg impairment of total) by consciousness, mouth 2 (two) intractable (HCC) times a day. documented as of this encounter Progress Notes * Samy Tsai MD - 12/16/2019 10:04 AM NANOSCIENCE TECHNICIAN [facility] 12/16/2019 EPILEPSY Progress Note Patient Name: Rajiv Cullen Age: 49 y.o. Sex: female Code Status: Full Code Admit Date: 12/11/2019 Length of Stay: 5 Days Admitting Physician: Samy Tsai MD CC: Follow up seizures Subjective/Objective: Patient has had no additional seizures since my visit with her yesterday morning . She feels better today. She reports no new symptoms overnight. She feels li ke she is basically back to baseline at this point. She was restarted on her an tiepileptic drugs yesterday and is tolerating these well so far with no side eff ects. Scheduled Meds: brivaracetam 100 mg Oral BID calcium-vitamin D 1 tablet Oral TID carvediloL 25 mg Oral BID cyanocobalamin 500 mcg Oral Daily fluticasone furoate-vilanterol 1 puff Inhalation Daily folic acid 1 mg Oral Daily lamoTRIgine 200 mg Oral TID linaCLOtide 145 mcg Oral Daily melatonin 9 mg Oral Nightly montelukast 10 mg Oral Nightly nicotine 1 patch Transdermal Daily nortriptyline 50 mg Oral Nightly pravastatin 20 mg Oral Nightly rufinamide 1,600 mg Oral BID tolterodine 2 mg Oral Daily venlafaxine 225 mg Oral QAM Continuous Infusions: PRN Meds: albuterol, ALPRAZolam, diphenhydrAMINE, HYDROcodone-acetaminophen, ibu profen, ipratropium-albuterol, loperamide, LORazepam, ondansetron, rizatriptan, simethicone Temp: [36.6 C (97.9 F)-36.9 C (98.4 F)] 36.9 C (98.4 F) Pulse: [100-117] 111 Resp: [18] 18 BP: (107-128)/(63-77) 128/77 On examination, she was well-appearing and in no acute distress. Her speech was fluent and articulate. She was alert and oriented to person, place, and date and able to relate good details of her interval medical history. Her pupils were e qual round and reactive to light and her extraocular movements were full with no significant nystagmus. Her face moved symmetrically. Facial sensation was int act. Her palate elevated symmetrically and her tongue was midline. She had no d rift and no asterixis. Her bypwzx-ru-rlnl, nnto-vp-[id number], and rapid alternating movements were intact. Laboratory Data: No lab components to display No lab components to display No results found for: PHENYTOIN, VALPACID STUDIES REVIEWED No results found. No results found. Assessment/Plan: Summary: Rajiv Cullen is a 49 y.o. 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 Seizures description includes star ing episodes as well as generalized tonic-clonic seizures. Previous inpatient v ideo EEG monitoring completed at [facility], [facility], and [facility] and have been unable to localize her seizures. She is maintained on Lamictal 200 mg 3 times d aily, Banzel 1600 mg twice daily, and Briviact 100 mg twice daily, but continue s to have breakthrough seizures. Her last seizure reported on December 06. She is currently admitted for phase I video EEG monitoring in an attempt to localize he r seizures to see if she is a candidate for surgical intervention. No clinical s eizures captured thus far since admission. On the morning of 12/15, we captured 2 electrographic seizures. The first seizure had no localizable electrographic changes at onset. The second seizure unfortunately occurred after the patient h ad removed some of her electrodes. However, in the last 24 hours, more generali zed abnormalities have been seen interictally suggesting that she does not fact have an idiopathic primary generalized form of epilepsy. No further seizures si nce the morning of 12/15 Assessment: History of drug-resistant epilepsy of cryptogenic cause; admitted for phase 1 video EEG monitoring for presurgical evaluation. 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 Padded bed rails Continuous bedside pulse oximetry Ensure that an oxygen cannula and suction are ready at bedside Ativan 1-2 mg IV prn for frequent or prolonged seizures lasting longer than 5 minutes per lorazepam protocol. Maintain IV access in the event that rescue medications are needed. Continue her outpatient antiepileptic drug regimen as follows: Lamotrigine (Lamictal) 200 mg 3 times daily Rufinamide (Banzel) 1200 mg 2 times daily Briviact 100 mg p.o. 3 times daily VTE prophylaxis; SCDs ordered If no further seizures, anticipate possible discharge home tomorrow. She does not appear to be a candidate for a respective surgical options given that her seizures are generalized. She might be a candidate for deep brain sti mulation and we discussed this today. SCIENCE TECHNICIAN * Samy Tsai MD - 12/15/2019 10:42 AM NANOSCIENCE TECHNICIAN [facility] 12/15/2019 EPILEPSY Progress Note Patient Name: Rajiv Cullen Age: 49 y.o. Sex: female Code Status: Full Code Admit Date: 12/11/2019 Length of Stay: 4 Days Admitting Physician: Samy Tsai MD CC: Follow up seizures Subjective/Objective: Patient has had 2 seizures this morning. The first seizure occurred in the jimi y morning hours and EEG showed no clear localization. The patient then removed some of her electrodes so when the second seizure occurred later this morning, e lectrographic localization was not possible. Interictally over the last 24 hour s, the appearance of more generalized epileptiform activity has been seen. Ther efore, this would suggest that the patient does not fact have a primary generali zed epilepsy condition. The limited data that we have captured with respect to her seizures does not suggest a focal onset of the seizure activity. After her second seizure, the patient was quite agitated. She was given lorazepam 1 mg an d we have restarted her antiepileptic drugs. Scheduled Meds: brivaracetam 100 mg Oral BID calcium-vitamin D 1 tablet Oral TID carvediloL 25 mg Oral BID cyanocobalamin 500 mcg Oral Daily fluticasone furoate-vilanterol 1 puff Inhalation Daily folic acid 1 mg Oral Daily lamoTRIgine 200 mg Oral TID linaCLOtide 145 mcg Oral Daily melatonin 9 mg Oral Nightly montelukast 10 mg Oral Nightly nicotine 1 patch Transdermal Daily nortriptyline 50 mg Oral Nightly pravastatin 20 mg Oral Nightly rufinamide 1,600 mg Oral BID tolterodine 2 mg Oral Daily venlafaxine 225 mg Oral QAM Continuous Infusions: PRN Meds: albuterol, ALPRAZolam, diphenhydrAMINE, flu vaccine (6 months+), HYDRO codone-acetaminophen, ibuprofen, ipratropium-albuterol, loperamide, LORazepam, o ndansetron, rizatriptan, simethicone Temp: [36.7 C (98 F)-37.1 C (98.7 F)] 37.1 C (98.7 F) Pulse: [94-138] 138 Resp: [16-26] 26 BP: (119-195)/(62-90) 148/75 On examination, she was agitated. She was oriented to person but cannot tell me the date or place that she is at. She did not follow any commands. Pupils were equal round and reactive to light and her extraocular movements were full. She moves all 4 extremities spontaneously with what appeared to be normal symmetric strength. There was no dysmetria noted. Laboratory Data: No lab components to display No lab components to display No results found for: PHENYTOIN, VALPACID STUDIES REVIEWED No results found. No results found. Assessment/Plan: Summary: Rajiv Cullen is a 49 y.o. 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 Seizures description includes star ing episodes as well as generalized tonic-clonic seizures. Previous inpatient v ideo EEG monitoring completed at [facility], [facility], and [facility] and have been unable to localize her seizures. She is maintained on Lamictal 200 mg 3 times d aily, Banzel 1600 mg twice daily, and Briviact 100 mg twice daily, but continue s to have breakthrough seizures. Her last seizure reported on December 06. She is currently admitted for phase I video EEG monitoring in an attempt to localize he r seizures to see if she is a candidate for surgical intervention. No clinical s eizures captured thus far since admission. On the morning of 12/15, we captured 2 electrographic seizures. The first seizure had no localizable electrographic changes at onset. The second seizure unfortunately occurred after the patient h ad removed some of her electrodes. However, in the last 24 hours, more generali zed abnormalities have been seen interictally suggesting that she does not fact have an idiopathic primary generalized form of epilepsy. After her second seizu re this morning, she became quite agitated and is currently postictal although i s showing some trend towards improvement. We will give 1 mg of Ativan to help r elax her and to slow down her seizure frequency. Assessment: History of drug-resistant epilepsy of cryptogenic cause; admitted for phase 1 video EEG monitoring for presurgical evaluation. 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 Padded bed rails Continuous bedside pulse oximetry Ensure that an oxygen cannula and suction are ready at bedside Ativan 1-2 mg IV prn for frequent or prolonged seizures lasting longer than 5 minutes per lorazepam protocol. Maintain IV access in the event that rescue medications are needed. We will restart antiepileptic drug regimen back to her outpatient regimen as follows: Lamotrigine (Lamictal) 200 mg 3 times daily Rufinamide (Banzel) 1200 mg 2 times daily Briviact 100 mg p.o. 3 times daily VTE prophylaxis; SCDs ordered SCIENCE TECHNICIAN * Samy Tsai MD - 12/14/2019 12:05 PM NANOSCIENCE TECHNICIAN [facility] 12/14/2019 EPILEPSY Progress Note Patient Name: Rajiv Cullen Age: 49 y.o. Sex: female Code Status: Full Code Admit Date: 12/11/2019 Length of Stay: 3 Days Admitting Physician: Samy Tsai MD CC: Follow up seizures Subjective/Objective: No seizure activity overnight or pushbutton events. Her only complaints is feeli ng tired. Discussed will return with Dr. Tsai this afternoon to discuss further titration of her medications. 10 point ROS negative unless specified above. Scheduled Meds: calcium-vitamin D 1 tablet Oral TID carvediloL 25 mg Oral BID cyanocobalamin 500 mcg Oral Daily fluticasone furoate-vilanterol 1 puff Inhalation Daily folic acid 1 mg Oral Daily lamoTRIgine 100 mg Oral TID linaCLOtide 145 mcg Oral Daily melatonin 9 mg Oral Nightly montelukast 10 mg Oral Nightly nicotine 1 patch Transdermal Daily nortriptyline 50 mg Oral Nightly pravastatin 20 mg Oral Nightly rufinamide 800 mg Oral BID tolterodine 2 mg Oral Daily venlafaxine 225 mg Oral QAM Continuous Infusions: PRN Meds: albuterol, ALPRAZolam, diphenhydrAMINE, flu vaccine (6 months+), HYDRO codone-acetaminophen, ibuprofen, ipratropium-albuterol, LORazepam, ondansetron, rizatriptan, simethicone Temp: [36.7 C (98.1 F)-37.1 C (98.7 F)] 37 C (98.6 F) Pulse: [100-107] 101 Resp: [18] 18 BP: (119-140)/(63-76) 119/71 PHYSICAL EXAM: General: Ms. Cullen is a generally healthy appearing female in no acute distress. Head: Oropharynx clear. Head normocephalic, atraumatic. Cardiac: Regular rate and rhythm. Lungs: Unlabored. Extremities: No edema or clear skin lesions noted. Neuro: Mental status: Awake and alert. Patient oriented to person, place, and time. Patient follows multi-step commands without prompting. Speech is fluent with normal articulation. Language has intact comprehension Language content appears appropriate. Pupils are equal and round. Extraocular eye movements are full without nystagmus. Face symmetric Muscle bulk and tone are normal throughout. Moves all extremities equally and symmetrically. No pronator drift. No asterixis No adventitious movements. Finger to nose testing normal without dysmetria. Rapid alternating movements in the upper extremities (finger tapping) are nor mal. Laboratory Data: No lab components to display No lab components to display No results found for: PHENYTOIN, VALPACID STUDIES REVIEWED No results found. No results found. Assessment/Plan: Summary: Rajiv Cullen is a 49 y.o. 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 Seizures description includes star ing episodes as well as generalized tonic-clonic seizures. Previous inpatient v ideo EEG monitoring completed at [facility], [facility], and [facility] and have been unable to localize her seizures. She is maintained on Lamictal 200 mg 3 times d aily, Banzel 1600 mg twice daily, and Briviact 100 mg twice daily, but continue s to have breakthrough seizures. Her last seizure reported on December 06. She is currently admitted for phase I video EEG monitoring in an attempt to localize he r seizures to see if she is a candidate for surgical intervention. No clinical s eizures captured thus far since admission. On 12/13 her lamotrigine was decreased to 100 mg 3 times daily, rufinamide decreased to 800 mg 3 times daily and Brivi cat was discontinued. Assessment: History of drug-resistant epilepsy of cryptogenic cause; admitted for phase 1 video EEG monitoring for presurgical evaluation Status post vagal nerve stimulator with battery replacement 07/2019 Sleep apnea Migraines headaches COPD Obesity Depression Chronic pain Plan: Continuous VEEG telemetry to monitor for seizures/spells Monitor patient with seizure precautions. Padded bed rails Continuous bedside pulse oximetry Ensure that an oxygen cannula and suction are ready at bedside Ativan 1-2 mg IV prn for frequent or prolonged seizures lasting longer than 5 minutes per lorazepam protocol. Maintain IV access in the event that rescue medications are needed. Continue AED regimen as follows: Lamotrigine (Lamictal) 100 mg 3 times daily Rufinamide (Banzel) 800 mg 2 times daily We will discuss with staff further titration schedule VTE prophylaxis; SCDs ordered Dr. Tsai to follow Pager number: I attest that I saw and examined the patient and discussed the patient's case wi th the advanced practice nurse. I agree with the details of the history and exam as described above and we formulated the plan together as described. Patient r eports no seizure activity overnight. There was an accidental pushbutton event of which the patient was unaware. Patient reports no new neurological symptoms overnight but does report some diarrhea today. We will prescribe loperamide as needed. Continue video EEG to capture and localize her seizures as part of a ph ase 1 presurgical evaluation. Continue to monitor the patient with seizure prec autions. Maintain IV access in the event that rescue medication needs to be giv en. We will decrease lamotrigine to 50 mg p.o. 3 times daily and decrease Banze l to 400 mg p.o. twice daily. Briviact has been discontinued already. We will continue to taper her off her antiepileptic drug regimen in order to trigger her typical seizures for localization purposes. . SCIENCE TECHNICIAN * Samy Tsai MD - 12/13/2019 8:03 AM NANOSCIENCE TECHNICIAN EPILEPSY PROGRESS NOTE Patient: Rajiv Cullen : 1970 PCP: Freedom Villarreal MD LOS: 2 CHIEF COMPLAINT Follow up seizures INTERVAL HISTORY History is provided via: patient, nursing Visitors at the bedside: none No push button events or clinical seizures overnight. She has no complaints at this time. Review of systems is unremarkable. REVIEW OF SYSTEMS 5 point ROS Negative except where noted above including: Constitutional, Neurolo gic, Cardiovascular, Respiratory, Gastrointestinal. MEDICATIONS brivaracetam 50 mg Oral BID calcium-vitamin D 1 tablet Oral TID carvediloL 25 mg Oral BID cyanocobalamin 500 mcg Oral Daily fluticasone furoate-vilanterol 1 puff Inhalation Daily folic acid 1 mg Oral Daily lamoTRIgine 150 mg Oral TID linaCLOtide 145 mcg Oral Daily melatonin 9 mg Oral Nightly montelukast 10 mg Oral Nightly nicotine 1 patch Transdermal Daily nortriptyline 50 mg Oral Nightly pravastatin 20 mg Oral Nightly rufinamide 1,200 mg Oral BID tolterodine 2 mg Oral Daily venlafaxine 225 mg Oral QAM albuterol, ALPRAZolam, diphenhydrAMINE, flu vaccine (6 months+), HYDROcodone-camille taminophen, ibuprofen, ipratropium-albuterol, LORazepam, ondansetron, rizatripta n, simethicone PHYSICAL EXAMINATION No data found. Systolic (24hrs), Av , Min:115 , Max:131 Diastolic (24hrs), Av, Min:62, Max:74 Ht Readings from Last 1 Encounters: 12/11/19 1.6 m (5' 3") Wt Readings from Last 1 Encounters: 12/11/19 92 kg (202 lb 12.8 oz) Body mass index is 35.92 kg/m. General: Ms. Cullen is a healthy / obese female in no acute distress. Head: Oropharynx clear. Head normocephalic, atraumatic. Cardiac: Regular rate Lungs: Nonlabored Abdomen: soft, non-tender with + BS Extremities: No cyanosis or edema. No clear skin lesions noted. Mental status, cognition, and cortical functions: Mental status (including orientation to person, place, and time) is intact Language is fluent with intact comprehension. Speech is clear and without dysarthria. Cranial nerves: Pupils are equal, round, and reactive to light. Visual cohen are full to direct threat. Extraocular movements: Tracks the room. Face symmetric Hearing to conversational tone. Tongue midline Motor: Muscle tone is normal throughout. Strength on confrontational testing is 5/5 in proximal and distal muscle grou ps in all four extremities. No pronator drift was observed. No orbiting on arm/finger roll testing was observed. No involuntary movements. STUDIES REVIEWED None LABS REVIEWED None SUMMARY Ms. Cullen is a 49 y.o. right-handed female with: Refractory epilepsy of crypto genic cause. Previous inpatient video EEG monitoring at [facility], [facility] and [facility] have not clarified her localization. She has had improvement of sever ity frequency and duration of seizures with the addition of Briviact current dos e 100 mg twice daily. In addition she is maintained on Lamictal 200 mg 3 times daily and Banzel 1600 mg twice daily. Since her last clinic appointment in the epilepsy center, she has had a total of 8 additional spells in the months of Oct and November, endorsed as a mix of her generalized tonic-clonic seizures an d her staring spells. Most recent seizure was December 06, 2019. She has been co mpliant with her medications. 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 Sleep apnea, not treated with CPAP Migraine headaches, stable. Obesity Chronic hearing loss, left ear Depression Chronic obstructive pulmonary disease Chronic pain, on opioids Active Problems: Epilepsy (HCC) Sleep apnea Migraine Depression Partial epilepsy (HCC) RECOMMENDATIONS Continuous vEEG telemetry to assess for any subclinical seizures or clinical seizures. Current AED regimen as follows; staff will determining reduction schedule ? Lamotrigine (Lamictal) 150 mg three times daily ? Rufinamide (Banzel) 1,200 mg twice daily ? Brivaracetam (Briviact) 50 mg twice daily Neuro checks per unit routine Monitor patient with seizure precautions, until discharge from the hospital ? Padded bed rails ? Continuous bedside pulse oximetry ? Ensure that supplemental oxygen and suction equipment are ready at the bedside . Maintain IV access, in the event that seizure rescue medication need to be ad ministered for convulsions lasting longer than 5 minutes. VTE prophylaxis: SCDs ordered Staff to follow, Dr. Tsai. Elvi Man NP 12/13/2019 8:06 AM pager number: [phone] I attest that I saw and examined the patient and discussed the patient's case wi th the advanced practice nurse. I agree with the details of the history and exam as described above and we formulated the plan together as described. Patient r eports no seizures overnight. Otherwise doing well with no new neurological sym ptoms. We will continue video EEG to capture and attempt to localize her seizur es as part of a phase 1 presurgical evaluation. Continue to monitor the patient with seizure precautions. Maintain IV access in the event that rescue medicati on needs to be given. We will further decrease her antiepileptic drug regimen i n order to trigger her typical seizures for localization purposes. We will decr ease her lamotrigine to 100 mg p.o. 3 times daily, decrease rufinamide to 800 mg p.o. 3 times daily and will discontinue her Briviact. . SCIENCE TECHNICIAN * Samy Tsai MD - 12/12/2019 10:32 AM NANOSCIENCE TECHNICIAN EPILEPSY PROGRESS NOTE Patient: Rajiv Cullen : 1970 PCP: Freedom Villarreal MD LOS: 1 CHIEF COMPLAINT Follow up seizures INTERVAL HISTORY History is provided via: patient Visitors at the bedside: none No push button events or clinical seizures overnight. She denies complaints at this time. No headaches or other complaints on review of systems. REVIEW OF SYSTEMS 5 point ROS Negative except where noted above including: Constitutional, Neurolo gic, Cardiovascular, Respiratory, Gastrointestinal, Genitourinary MEDICATIONS brivaracetam 100 mg Oral BID calcium-vitamin D 1 tablet Oral TID carvedilol 25 mg Oral BID cyanocobalamin 500 mcg Oral Daily fluticasone furoate-vilanterol 1 puff Inhalation Daily folic acid 1 mg Oral Daily lamoTRIgine 200 mg Oral TID linaCLOtide 145 mcg Oral Daily melatonin 9 mg Oral Nightly montelukast 10 mg Oral Nightly nicotine 1 patch Transdermal Daily nortriptyline 50 mg Oral Nightly pravastatin 20 mg Oral Nightly rufinamide 1,600 mg Oral BID tolterodine 2 mg Oral Daily venlafaxine 225 mg Oral QAM albuterol, ALPRAZolam, diphenhydrAMINE, flu vaccine (6 months+), HYDROcodone-camille taminophen, ibuprofen, ipratropium-albuterol, LORazepam, ondansetron, rizatripta n, simethicone PHYSICAL EXAMINATION Patient Vitals for the past 4 hrs: BP Temp Temp src Pulse Resp SpO2 12/12/19 0806 96 97 % 12/12/19 0721 119/71 36.7 C (98 F) Oral 98 18 96 % Systolic (24hrs), Av , Min:110 , Max:142 Diastolic (24hrs), Av, Min:60, Max:77 Ht Readings from Last 1 Encounters: 12/11/19 1.6 m (5' 3") Wt Readings from Last 1 Encounters: 12/11/19 92 kg (202 lb 12.8 oz) Body mass index is 35.92 kg/m. General: Ms. Cullen is a healthy /obese female in no acute distress. Head: Oropharynx clear. Head normocephalic, atraumatic. Cardiac: Regular rate and rhythm. Lungs: Mild expiratory wheeze Abdomen: soft, non-tender with + BS Extremities: No cyanosis or edema. No clear skin lesions noted. Mental status, cognition, and cortical functions: Mental status (including orientation to person, place, and time; recent and r emote memory; attention and concentration; general fund of knowledge) is intact based on conversation and detailed medical history. Language is fluent with intact comprehension. Speech is clear and without dysarthria. Cranial nerves: Pupils are equal, round, and reactive to light. Visual cohen are full. Extraocular eye movements are intact in all directions. No nystagmus on eye movements. Facial sensation is intact to light touch throughout. Muscles of facial expression are symmetric at rest and with activation. No weakness on eyelid or mouth closure. Hearing is slightly reduced bilaterally Palate elevates symmetrically. Tongue protrudes in the midline and has full excursions. [place] is equal Shoulder shrug is equal Motor: Muscle bulk is normal throughout. Muscle tone is normal throughout. Strength on confrontational testing is 5/5 in proximal and distal muscle grou ps in all four extremities. No pronator drift was observed. No orbiting on arm/finger roll testing was observed. No involuntary movements. Gait and coordination: Gait is deferred, EEG. Sensation: Light touch sensation is intact throughout. STUDIES REVIEWED None LABS REVIEWED None SUMMARY Ms. Cullen is a 49 y.o. right-handed female with: Refractory epilepsy of crypt ogenic cause. Previous inpatient video EEG monitoring at [facility], [facility] have not clarified her localization. She has had improvement of ese rity frequency and duration of seizures with the addition of Briviact current do se 100 mg twice daily. In addition she is maintained on Lamictal 200 mg 3 times daily and Banzel 1600 mg twice daily. Since her last clinic appointment in the epilepsy center, she has had a total of 8 additional spells in the months of and November, endorsed as a mix of her generalized tonic-clonic seizures a nd her staring spells. Most recent seizure was December 06, 2019. She has been c ompliant with her medications. No clinical seizures overnight. EEG IMPRESSION: This video EEG telemetry was recorded for approximately 14 hours an d captured no pushbutton events and no electrographic seizures. However, brief bursts typically lasting less than 1 second of theta frequency slowing as well a s high voltage sharp appearing discharges were seen over the right posterior tem poral region. This indicates focal cortical and subcortical dysfunction in this region and could represent a potential focus for epileptogenesis. 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 Sleep apnea, not treated with CPAP Migraine headaches, stable. Obesity Chronic hearing loss, left ear Depression Chronic obstructive pulmonary disease Chronic pain, on opioids Active Problems: Epilepsy (HCC) Sleep apnea Migraine Depression Partial epilepsy (HCC) RECOMMENDATIONS Continuous vEEG telemetry to assess for any subclinical seizures or clinical seizures. Continue AED regimen as follows, until further determination by staff for red uction of dosing: ? Lamotrigine (Lamictal) 200 mg three times daily ? Rufinamide (Banzel) 1600 mg twice daily ? Brivaracetam (Briviact) 100 mg twice daily Neuro checks per unit routine Monitor patient with seizure precautions, until discharge from the hospital ? Padded bed rails ? Continuous bedside pulse oximetry ? Ensure that supplemental oxygen and suction equipment are ready at the bedside . Maintain IV access, in the event that seizure rescue medication need to be ad ministered for convulsions lasting longer than 5 minutes. VTE prophylaxis[place] [facility] to follow, Dr. Tsai. Elvi Man, 12/12/2019 10:33 AM pager number: [phone] I attest that I saw and examined the patient and discussed the patient's case wi th the advanced practice nurse. I agree with the details of the history and exam as described above and we formulated the plan together as described. Patient r eports no seizures overnight. Video EEG so far shows occasional right temporal slowing and sharp discharges over the right posterior temporal region. Patient is doing well and reports no new neurological symptoms. We will continue video EEG to capture seizures and attempt to localize them as part of a phase 1 presur gical evaluation. Continue to monitor the patient with seizure precautions. Ma intain IV access in the event that rescue medication needs to be given. We will decrease her antiepileptic drug regimen in order to help trigger her typical se izures for localization purposes. We will decrease her lamotrigine to 150 mg p. o. 3 times daily, decrease Banzel to 1200 mg p.o. twice daily and decrease her B riviact to 50 mg p.o. twice daily. . SCIENCE TECHNICIAN * Earl Durand, HOOP BENDING MACHINE OPERATOR - 12/11/2019 11:39 AM NANOSCIENCE TECHNICIAN Respiratory Care Services Initial Progress Note 12/11/2019 11:39 AM A RATE assessment and treatement plan was performed on Rajiv Ana María Cullen, : 09/1970 The primary Pulmonary/Respiratory related diagnosis for assessment on this admis magdalena is: jose alberto History: The patient has a self-maintained airway. Home Therapy Review: The patient states the use of: short acting bronchodilators and steroids Home medication was validated in the under Prior to Admission Medications activi ty. Patient/Patient's family was able to describe current use. The patient states she does not use oxygen at home. Oxygen devices used at home: na Home O2 Usage: No Home Usage No data recorded No data recorded The [employer] company providing the home oxygen/equipment is: No data recorded The patient states she does use assistive ventilatory support devices at home. Assistive ventilatory support devices include: Type of Home Vent: CPAP for JOSE ALBERTO Settings are: No data recorded @[facility]([id number]])@ No data recorded No data recorded No data recorded The [employer] providing the home ventilator equipment is: No data recorded The patient states she does not use other home therapies: Na Previous Pulmonary Function or Spirometry testing: Patient has not had testing. Social History Review: The patient reports that she has been smoking cigarettes. She started smoking a bout 33 years ago. She has a 17.50 pack-year smoking history. She has never used smokeless tobacco. Ready to quit: Not Answered Counseling given: Not Answered Comment: "I've tried everything there is" Physical Assessment: Pulse: 94 Resp: 18 SpO2: 98 % No data recorded No data recorded No data recorded determined the patient na meet the necessary flow rate for the (MDI, DPI) currently used at home. Suggested change: na Lung Assessment: Respiratory (WDL): X (*WDL=Within Defined Limits; X=Exceptions to WDL) Respiratory Pattern: Respiratory Pattern: Normal Chest Assessment: Chest Assessment: Chest expansion symmetrical Breath Sounds: Bilateral Breath Sounds: Diminished Cough Effort: No data recorded Secretions: No data recorded, No data recorded, No data recorded Based on the patient's history and current physical assessment, the patient meet s criteria for the following treatment plan(s): Treatment Plan The treatment plan identified for the patient is as follows: Medication Therapy Protocol: Medication Criteria for Service: Bronchospasm/Wheezing;Airway Edema/Obstruction Intervention: SVN with bronchodilator;MDI (see MAR) Expected Outcome: Bronchospasm Relief Home BiPAP/CPAP, Mechanical Ventilation Protocol: JOSE ALBERTO Criteria for Service: Previously tested for JOSE ALBERTO with positive results requir ing intervention during sleep Intervention: Inpatient auto-titration with CPAP/BiPAP Expected Outcome: Maintain home status until discharge Order/Plan Summary To maintain pulmonary status SCIENCE TECHNICIAN documented in this encounter H&P Notes * Samy Tsai MD - 12/11/2019 8:19 AM NANOSCIENCE TECHNICIAN EPILEPSY ADMISSION HISTORY AND PHYSICAL Patient Name: Rajiv Cullen : 1970 PCP: Freedom Villarreal MD Date of consultation: 12/11/2019 Reason for admission: Seizure, elective admission HISTORY OF PRESENT ILLNESS History is provided via: Patient and chart review Visitors at the bedside: None Rajiv Cullen is a 49 y.o. right-handed female followed in the outpatient [facility] clinic regarding history of refractory probable gener alized epilepsy of cryptogenic cause. She presents for elective admission for p hase 1 monitoring. Per patient and chart review, she was diagnosed with epilepsy at the age of 21 years. Her typical spells manifest as generalized tonicclo sandoval seizures without aura. She has additional staring spells as well without au ra. She has previously evaluated on three prior admissions with video EEG monit oricyndie. Per chart review once at [facility] in 1996, [facility] in 2000 and [facility] in 2016. Reportedly a clear focus of seizure onset has not been previously id entified. Prior MRI of the brain with and without contrast was completed April which demonstrated bifrontal encephalomalacia worse over the right fronta l region with noted surgical changes consistent with craniotomy. She was most recently seen in clinic September 2019; at that visit she reported t hat her seizures were becoming more mild, shorter and less frequent with the add ition of Briviact. At that visit medication was increased from 50 mg twice a da y to 75 mg twice a day x1 week and then 100 mg twice daily moving forward. She has been compliant with her medication. She is also maintained on Lamictal 200 mg 3 times daily and Banzel 1600 mg twice daily. She had her VNS battery replac ed August 03, 2019. She feels as though her seizures are commonly triggered b y migraine and/or systemic illness. Since her visit in September 2019 she endorses having a total of 8 additional sei zures that she is aware of. She had 5 episodes in October, she does not recall the dates. She believes it was a "mix" of her generalized seizures as well as her staring episodes. She was subsequently without additional seizures until . She reports on December 05, 2019 she had 1 of her typical staring spells without aura. Then, on December 06 she had 2 episodes, one staring spell and one generalized seizure (tonicclonic) that she calls her "grand mal". No additi onal seizures in the last few days. Otherwise, on review of systems, she endorses her baseline shortness of breath, at more so exercise-induced. She is a bit wheezy. She endorses easy bruising. She fatigues with significant activity. She is not able to be compliant with h er CPAP machine secondary to intolerance to the pressures. She is compliant wit h her home oxygen regimen, via nasal cannula when sleeping. She has "hormone is sues" and continues to receive Depo-Provera injections. She denies headache at this time. She has baseline mild hearing loss on the left, endorses this was st atus post vagal nerve stimulator placement Of note, per report she endorsed to nursing that she has recently stopped her no rtriptyline, Maxalt and phentermine; she did not state this to me. REVIEW OF SYSTEMS 14 point ROS Negative except where noted above including: Constitutional, HEENT, Neurologic, Psychiatric, Integumentary, Cardiovascular, Respiratory, Gastrointe stinal, Genitourinary, Hematologic, Endocrine, Musculoskeletal. PAST MEDICAL HISTORY Past Medical History: Diagnosis Date Allergic rhinitis seasonal allergies Anxiety Arrhythmia tachycardia Arthritis Back pain Chronic constipation COPD (chronic obstructive pulmonary disease) (HCC) Depression Difficulty falling asleep at night until early childhood assistant hours Difficulty staying asleep Exercise tolerance finding limited by leg pain--if walking a long way will use electric cart in grocery st [place] Fractures from seizures--leg and ankle fractures in past Head injury concussions from seizures--since age 21 HL (hearing loss) left ear MOHEGAN-no hearing aides Kidney stones Migraine Obesity JOSE ALBERTO (obstructive sleep apnea) Osteoarthritis mainly ankles and knees and wrists and back Osteopenia Seizures ([facility]) Sinusitis possibly--history of sinus infections Urinary tract infection Visual impairment wears glasses PAST SURGICAL HISTORY Past Surgical History: Procedure Laterality Date ANKLE [...] VAGAL NERVE STIMULATOR REPLACEMENT WITH INOPERATIVE PROGRAMING; Reyna geon: Sj Vivar MD; Location: [facility] Main OR; Service: ENT; Laterality : N/A; REPLACEMENT, GENERATOR, VAGUS NERVE NEUROSTIMULATOR Left 08/03/2019 Procedure: REPLACEMENT, GENERATOR, VAGUS NERVE NEUROSTIMULATOR; Surgeon: Yi Bhatti MD; Location: [facility] OR; Service: Neurosurgery; Laterality: Le ft; TUBAL LIGATION 1992 FAMILY HISTORY Family History Problem Relation Age of Onset Hyperlipidemia Mother Migraines Mother Alzheimer's disease Mother Osteoporosis Mother Hyperlipidemia Father Diabetes Father Alcohol abuse Father Heart disease Father Heart disease Other FAMILY HX Heart disease Other FAMILY HX Rheum arthritis Other FAMILY HX Migraines Cousin No Known Problems Sister No Known Problems Brother No Known Problems Daughter No Known Problems Son No Known Problems Brother Family Status Relation Name Status Mother Alive Father Alive Other PAT. SIDE (Not Specified) Other MAT. 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 Tobacco Use Smoking status: Current Every Day Smoker Packs/day: 0.50 Years: 35.00 Pack years: 17.50 Types: Cigarettes Start date: 1986 Smokeless tobacco: Never Used Tobacco comment: "I've tried everything there is" Substance and Sexual Activity Alcohol use: No Alcohol/week: 0.0 standard drinks Drug use: No Social History Narrative Lives with adult daughter and grandchild Has AD, MPOA is father Dayton Mireles Code status: FULL OUTPATIENT MEDICATIONS Current Discharge Medication List CONTINUE these medications which have NOT CHANGED Details ALBUTEROL INHL Inhale 2 puffs every 4 (four) hours as needed. ALPRAZolam (XANAX) 0.25 MG tablet Take 0.25 mg by mouth 3 (three) times a day. brivaracetam (BRIVIACT) 50 mg tablet Take 2 tablets (100 mg total) by mouth 2 (t wo) times a day. Qty: 120 tablet, Refills: 5 budesonide-formoterol (SYMBICORT) 160-4.5 mcg/actuation inhaler Inhale 2 puffs 2 (two) times a day. calcium carbonate-vitamin D3 600 mg(1,500mg) -800 unit Tab Take 1 tablet by mout h 3 (three) times a day. carvedilol (COREG) 25 MG tablet Take 25 mg by mouth 2 (two) times a day. Refills: 5 chrom annette/brindal tamayo (GARCINIA CAMBOGIA ORAL) Take 1 tablet by mouth daily. cyanocobalamin (VITAMIN B-12) 500 MCG tablet Take 500 mcg by mouth daily. diphenhydrAMINE (BENADRYL) 25 mg capsule Take 50 mg by mouth as needed (Take wit h Hydrocodone to stop itching). folic acid (FOLVITE) 1 MG tablet Take 1 tablet (1 mg total) by mouth daily. Qty: 90 tablet, Refills: 3 Associated Diagnoses: Partial epilepsy with impairment of consciousness, intrac table (HCC) HYDROcodone-acetaminophen (NORCO) 5-325 mg per tablet Take 1 tablet by mouth jerel ry 4 (four) hours as needed for pain. ibuprofen (ADVIL,MOTRIN) 800 MG tablet Take 800 mg by mouth 3 (three) times a da y as needed. ipratropium-albuterol (DUO-NEB) 0.5-3 mg/3 mL nebulizer Inhale 3 mL via nebulize r 4 (four) times a day as needed. lamoTRIgine (LAMICTAL) 200 MG tablet Take 1 tablet (200 mg total) by mouth 3 (th ree) times a day. Qty: 270 tablet, Refills: 3 Associated Diagnoses: Partial epilepsy with impairment of consciousness, intrac table (HCC) linaclotide (LINZESS) 145 mcg cap Take 145 mcg by mouth daily. medroxyPROGESTERone (DEPO-PROVERA) 150 mg/mL injection Inject 150 mg intramuscul neo take as directed. Every 6 weeks melatonin 10 mg Tab Take 1 tablet by mouth nightly. montelukast (SINGULAIR) 10 mg tablet Take 10 mg by mouth nightly. ondansetron (ZOFRAN) 8 MG tablet Take 8 mg by mouth every 4 (four) hours as need ed for nausea. OXYGEN THERAPY Use 3.5 L in each nostril nightly. rufinamide (BANZEL) 400 MG tablet Take 4 tablets (1,600 mg total) by mouth 2 (tw o) times a day. Qty: 720 tablet, Refills: 3 Associated Diagnoses: Partial epilepsy with impairment of consciousness, intrac table (HCC) simethicone (ANTI-GAS ULTRA STRENGTH) 180 mg capsule Take 360 mg by mouth every 6 (six) hours as needed for flatulence. simvastatin (ZOCOR) 20 MG tablet Take 20 mg by mouth nightly. solifenacin (VESICARE) 10 MG tablet Take 10 mg by mouth daily. UNABLE TO FIND daily. CENTRUM ADULTS TAKING 1 TAB DAILY. venlafaxine 225 mg ER 24 hr tablet Take 225 mg by mouth every morning. STOP taking these medications nortriptyline (PAMELOR) 50 MG capsule Comments: Reason for Stopping: rizatriptan (MAXALT) 10 MG tablet Comments: Reason for Stopping: CURRENT MEDICATIONS Current Facility-Administered Medications: albuterol (ACCUNEB) 1.25 mg/3 mL (0.042 %) nebulizer solution 1.25 mg, 1.25 mg, Nebulization, Q4H PRN, ELVIRA Pearl ALPRAZolam (XANAX) tablet 0.25 mg, 0.25 mg, Oral, BID PRN, ELVIRA Pearl brivaracetam (BRIVIACT) tablet 100 mg, 100 mg, Oral, BID, ELVIRA Pearl calcium-vitamin D 500 mg(1,250mg) -200 unit(5mcg) per tablet 1 tablet, 1 ta blet, Oral, TID, ELVIRA Pearl carvedilol (COREG) tablet 25 mg, 25 mg, Oral, BID, ELVIRA Pearl cyanocobalamin (VITAMIN B-12) tablet 500 mcg, 500 mcg, Oral, Daily, ELVIRA Pearl diphenhydrAMINE (BENADRYL) capsule 50 mg, 50 mg, Oral, PRN, ELVIRA Clark flu vaccine [id number] (PF) (FLULAVAL/FLUZONE QUAD) injection 60 mcg, 0.5 mL , Intramuscular, During hospitalization, ELVIRA Pearl fluticasone furoate-vilanterol (BREO ELLIPTA) 100-25 mcg/actuation inhaler 1 puff, 1 puff, Inhalation, Daily, ELVIRA Pearl folic acid (FOLVITE) tablet 1 mg, 1 mg, Oral, Daily, ELVIRA Pearl CABLE WEAVER-Keshia HYDROcodone-acetaminophen (NORCO) 5-325 mg per tablet 1 tablet, 1 tablet, O ral, Q4H PRN, ELVIRA Pearl ibuprofen (ADVIL,MOTRIN) tablet 800 mg, 800 mg, Oral, Q8H PRN, ELVIRA Alanis ipratropium-albuterol (DUO-NEB) 0.5-3 mg/3 mL nebulizer solution 3 mL, 3 mL , Inhalation, 4x Daily PRN, ELVIRA Pearl lamoTRIgine (LaMICtal) tablet 200 mg, 200 mg, Oral, TID, ELVIRA Pearl linaCLOtide (LINZESS) capsule 145 mcg, 145 mcg, Oral, Daily, ELVIRA Coronel LORazepam (ATIVAN) injection 1 mg, 1 mg, Intravenous, PRN, ELVIRA Pearl melatonin tablet 9 mg, 9 mg, Oral, Nightly, ELVIRA Pearl montelukast (SINGULAIR) tablet 10 mg, 10 mg, Oral, Nightly, ELVIRA Clark nicotine (NICODERM CQ) 14 mg/24 hr patch 1 patch, 1 patch, Transdermal, Minh ly, ELVIRA Pearl nortriptyline (PAMELOR) capsule 50 mg, 50 mg, Oral, Nightly, ELVIRA Coronel ondansetron (ZOFRAN) tablet 4 mg, 4 mg, Oral, Q6H PRN, ELVIRA Pearl pravastatin (PRAVACHOL) tablet 20 mg, 20 mg, Oral, Nightly, ELVIRA Clark rizatriptan (MAXALT) tablet 10 mg, 10 mg, Oral, PRN, ELVIRA Pearl NP-Keshia rufinamide (BANZEL) tablet 1,600 mg, 1,600 mg, Oral, BID, ELVIRA Pearl simethicone (MYLICON) chewable tablet 80 mg, 80 mg, Oral, 4x Daily PRN, ELVIRA Payne tolterodine (DETROL LA) 24 hr capsule 2 mg, 2 mg, Oral, Daily, ELVRIA Alanis venlafaxine TR24 225 mg, 225 mg, Oral, QAM, ELVIRA Pearl ALLERGIES Allergies Allergen Reactions Aspirin Other (See Comments) Interacts with epilepsy meds Tylenol [Acetaminophen] Swelling Tylenol 3; Lips swell and blister EXAMINATION Patient Vitals for the past 4 hrs: BP Temp Temp src Pulse Resp SpO2 Height Weight 12/11/19 1138 94 18 98 % 12/11/19 1135 94 18 98 % 12/11/19 1050 130/77 37.1 C (98.7 F) Oral 98 18 98 % 1.6 m (5' 3") 92 kg (20 2 lb 12.8 oz) Systolic (24hrs), Av , Min:130 , Max:130 Diastolic (24hrs), Av, Min:77, Max:77 Ht Readings from Last 1 Encounters: 12/11/19 1.6 m (5' 3") Wt Readings from Last 1 Encounters: 12/11/19 92 kg (202 lb 12.8 oz) Body mass index is 35.92 kg/m. General: Ms. Cullen is a healthy /obese female in no acute distress. Head: Oropharynx clear. Head normocephalic, atraumatic. Cardiac: Regular rate and rhythm. Lungs: Mild expiratory wheeze Abdomen: soft, non-tender with + BS Extremities: No cyanosis or edema. No clear skin lesions noted. Mental status, cognition, and cortical functions: Mental status (including orientation to person, place, and time; recent and r emote memory; attention and concentration; general fund of knowledge) is intact based on conversation and detailed medical history. Language is fluent with intact comprehension. Speech is clear and without dysarthria. Cranial nerves: Pupils are equal, round, and reactive to light. Visual cohen are full. Extraocular eye movements are intact in all directions. No nystagmus on eye movements. Facial sensation is intact to light touch throughout. Muscles of facial expression are symmetric at rest and with activation. No weakness on eyelid or mouth closure. Hearing is slightly reduced bilaterally Palate elevates symmetrically. Tongue protrudes in the midline and has full excursions. [place]eter is equal Shoulder shrug is equal Motor: Muscle bulk is normal throughout. Muscle tone is normal throughout. Strength on confrontational testing is 5/5 in proximal and distal muscle grou ps in all four extremities. No pronator drift was observed. No orbiting on arm/finger roll testing was observed. No involuntary movements. Gait and coordination: Gait is deferred, EEG. Rapid alternating movements in the upper extremities (finger tapping) are nor mal. Rapid alternating movements in the lower extremities (toe tapping) are normal . Reflexes (right/left): Biceps: 1/1 Brachioradialis: 2/2 Patellae: 11/28 Achilles: 11/28 Plantar: flexor bilaterally. Sensation: Light touch sensation is intact throughout. STUDIES REVIEWED None applicable LABS REVIEWED None applicable at this time. SUMMARY Ms. Cullen is a 49 y.o. right-handed female with: Refractory epilepsy of crypt ogenic cause. Previous inpatient video EEG monitoring at [facility], [facility] and [facility] have not clarified her localization. She has had improvement of ese rity frequency and duration of seizures with the addition of Briviact current do se 100 mg twice daily. In addition she is maintained on Lamictal 200 mg 3 times daily and Banzel 1600 mg twice daily. Since her last clinic appointment in the epilepsy center, she has had a total of 8 additional spells in the months of and November, endorsed as a mix of her generalized tonic-clonic seizures a nd her staring spells. Most recent seizure was December 06, 2019. She has been c ompliant with her medications. 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 Sleep apnea, not treated with CPAP Migraine headaches, stable. Obesity Chronic hearing loss, left ear Depression Chronic obstructive pulmonary disease Chronic pain, on opioids Active Problems: Epilepsy (HCC) Sleep apnea Migraine Depression Partial epilepsy (HCC) RECOMMENDATIONS Continuous vEEG telemetry to assess for any subclinical seizures or clinical seizures. Continue AED regimen as follows, until further determination by staff for red uction of dosing: Lamotrigine (Lamictal) 200 mg three times daily Rufinamide (Banzel) 1600 mg twice daily Brivaracetam (Briviact) 100 mg twice daily Neuro checks per unit routine Monitor patient with seizure precautions, until discharge from the hospital ? Padded bed rails ? Continuous bedside pulse oximetry ? Ensure that supplemental oxygen and suction equipment are ready at the bedside . Maintain IV access, in the event that seizure rescue medication need to be ad ministered for convulsions lasting longer than 5 minutes. VTE prophylaxis: SCDs Respiratory therapy, as needed and scheduled for treatments with baseline chr onic obstructive pulmonary disease. Nicotine patch ordered, reviewed smoking cessation Home oxygen regimen at nighttime, 3.5 L nasal cannula Discontinued Phentermine per patient no longer taking Staff to follow, Dr. Tsai. . I attest that I saw and examined the patient and discussed the patient's case wi th the advanced practice nurse. I agree with the details of the history and exam as described above and we formulated the plan together as described. Patient i s a 49-year-old woman known to me from clinic who has drug-resistant epilepsy of cryptogenic cause. Past video EEG monitoring attempts have not been unable to localize her seizure focus. [facility] thinks that she might have a primar y generalized epilepsy condition. Most recently Briviact has been added to her regimen and she thinks that her seizures have become milder although she continu es to have a seizure approximately once every 1 to 2 weeks. In the past, her ge neralized tonic-clonic seizures could result in leg fractures. Fortunately, thi s has not happened since 2010. She is here for a repeat phase 1 presurgical harris luation to see if we can localize her seizure focus to see if she might be a can didate for a resective surgical option for the treatment of her drug-resistant e pilepsy. If she is not a candidate for surgical resection, then other options m ight be a deep brain stimulator since she has already has a vagal nerve stimulat or which she thinks has been helpful. I interrogated her vagal nerve stimulator . The generator was recently replaced on August 03, 2019. Systems diagnostic s reveals no issues. There is 75 to 100% of battery life remaining. The stimul ation intensity is 2.75 mA with a frequency of 15 Hz and a pulse width of 130 s with an on time of 30 seconds and an off time of 1.1-minute. Magnet current s trength was 3 mA with a pulse width of 130 s and and on time of 60 seconds. A uto stimulation feature was enabled with a threshold of 30% and an output curren t of 2.75 mA with a pulse width of 130 s and and on time of 60 seconds. We wi ll perform continuous video EEG monitoring in an attempt to localize her seizure focus as part of a phase 1 presurgical evaluation. We will monitor the patient with seizure precautions. Maintain IV access in the event that rescue medicati on needs to be given. For now, we will continue lamotrigine 200 mg p.o. 3 times daily, Banzel 1600 mg p.o. twice daily and Briviact 100 mg p.o. twice daily. I f no seizure activity overnight, then we will gradually wean her off of her anti epileptic drugs in order to trigger her typical seizures for localization purpos es. . SCIENCE TECHNICIAN documented in this encounter Procedure Notes * Samy Tsai MD - 12/17/2019 1:43 PM NANOSCIENCE TECHNICIAN Associated Order(s): EEG VIDEO MONITORING Name: RAJIV CULLEN _[id number] Date of : 1970 Attending Physician: Samy Tsai MD DATE OF STUDY: 12/17/2019 EEG# [id number] OBJECT: Evaluate for epilepsy using 21-channel continuous video EEG monitoring. FINDINGS: The background consisted of a normal symmetric posterior predominant alpha frequency rhythm seen symmetrically during wakefulness. There was progres magdalena into sleep with normal symmetric sleep morphologies. There were occasional bursts of theta frequency slowing as well as high voltage sharp appearing disch arges seen over the right posterior temporal region, typically with phase revers al at the T6 electrode. In addition to these focal abnormalities, there were oc casional brief bursts of generalized but bifrontally predominant high voltage po harjeet formed spike and wave discharges that typically lasted up to 2 or 3 seconds . The frequency of the discharges ranged from 2 to 3 Hz. ekg monitor showe d a regular rhythm throughout. PUSHBUTTON EVENTS: There were no pushbutton events recorded. IMPRESSION: This video EEG telemetry was recorded for approximately 13 hours an d captured no pushbutton events and no electrographic seizures. As described p reviously, there were occasional bursts of theta frequency slowing as well as hi gh voltage sharp appearing discharges seen over the right posterior temporal reg ion, typically with phase reversal at the T6 electrode. In addition to these fo kavitha abnormalities, there were occasional brief bursts of generalized but bifront ally predominant high voltage poorly formed spike and wave discharges that typic ally lasted up to 2 or 3 seconds. The frequency of the discharges ranged from 2 to 3 Hz. Overall, these findings are consistent with an idiopathic primary gen eralized epilepsy condition. Samy Tsai MD SCIENCE TECHNICIAN * Samy Tsai MD - 12/17/2019 8:05 AM NANOSCIENCE TECHNICIAN Associated Order(s): EEG VIDEO MONITORING Name: RAJIV CULLEN _[id number] Date of : 1970 Attending Physician: Samy Tsai MD DATE OF STUDY: 12/16/2019 EEG# [id number] OBJECT: Evaluate for epilepsy using 21-channel continuous video EEG monitoring. FINDINGS: The background consisted of a normal symmetric posterior predominant alpha frequency rhythm seen symmetrically during wakefulness. There was progres magdalena into sleep with normal symmetric sleep morphologies. There were occasional bursts of theta frequency slowing as well as high voltage sharp appearing disch arges seen over the right posterior temporal region, typically with phase revers al at the T6 electrode. In addition to these focal abnormalities, there were oc casional brief bursts of generalized but bifrontally predominant high voltage po harjeet formed spike and wave discharges that typically lasted up to 2 or 3 seconds . The frequency of the discharges ranged from 2 to 3 Hz. ekg monitor showe d a regular rhythm throughout. PUSHBUTTON EVENTS: There were no pushbutton events recorded. IMPRESSION: This 24 hour video EEG telemetry captured no pushbutton events and no electrographic seizures. As described previously, there were occasional burs ts of theta frequency slowing as well as high voltage sharp appearing discharges seen over the right posterior temporal region, typically with phase reversal at the T6 electrode. In addition to these focal abnormalities, there were occasio nal brief bursts of generalized but bifrontally predominant high voltage poorly formed spike and wave discharges that typically lasted up to 2 or 3 seconds. Th e frequency of the discharges ranged from 2 to 3 Hz. Overall, these findings ar e consistent with an idiopathic primary generalized epilepsy condition. Samy Tsai MD SCIENCE TECHNICIAN * Samy Tsai MD - 12/16/2019 8:28 AM NANOSCIENCE TECHNICIAN Associated Order(s): EEG VIDEO MONITORING Name: RAJIV CULLEN _[id number] Date of : 1970 Attending Physician: Samy Tsai MD DATE OF STUDY: 12/15/2019 EEG# [id number] OBJECT: Evaluate for epilepsy using 21-channel continuous video EEG monitoring. FINDINGS: The background consisted of a normal symmetric posterior predominant alpha frequency rhythm seen symmetrically during wakefulness. There was progres magdalena into sleep with normal symmetric sleep morphologies. There were occasional bursts of theta frequency slowing as well as high voltage sharp appearing disch arges seen over the right posterior temporal region, typically with phase revers al at the T6 electrode. In addition to these focal abnormalities, there were oc casional brief bursts of generalized but bifrontally predominant high voltage po harjeet formed spike and wave discharges that typically lasted up to 2 or 3 seconds . The frequency of the discharges ranged from 2 to 3 Hz. ekg monitor showe d a regular rhythm throughout. PUSHBUTTON EVENTS: There were 2 electrographic seizures recorded. The first oc curred at approximately 2:56 AM. The patient was lying in bed and appeared to b e awake. The EEG demonstrated frequent bursts of high-voltage generalized but b ifrontally predominant sharp and wave activity with a frequency of 2 to 3 Hz. T here was a sudden burst of high-voltage generalized spike discharges followed by an electro-decremental response that lasted slightly more than 1 second followe d by generalized but bifrontally predominate spike and wave discharges with a fr equency of 2 Hz. Approximately 10 seconds into the onset of the electrographic seizure the patient appeared to look up and slightly towards the right. She the n fidgeted in bed slightly for just a couple of seconds. She then appeared to b e staring and then started to moan slightly and had some automatisms particularl y of the left hand. This seizure lasted approximately 40 seconds and some bifro ntal slowing was seen afterwards. The next seizure occurred at approximately 8:34 AM. Unfortunately at this time, because of the prior seizure, she had removed some of the electrodes so there w as electrode artifact that obscured several of the channels. She was lying in b ed and her eyes were closed but she appeared to be awake based on the background findings. Through the electrode artifact there was the suggestion of some rhyt hmic delta frequency slowing seen bifrontally. She then had eye deviation to th e right followed by clonic movements of the legs and arms with tonic extension o f the arms and wrists followed by tonic extension of the legs. This seizure las monie slightly more than 1 minute and generalized slowing was seen afterwards. IMPRESSION: This 24 hour video EEG telemetry captured 2 electrographic seizures as described above. With the first seizure, the focus of onset appeared to be fairly generalized. The second seizure was obscured by electrode artifacts but again there was a suggestion of a generalized/bifrontally predominant focus of o nset. In addition, interictally as described previously, there were occasional brief bursts of poorly formed generalized but bifrontally predominate spike and wave discharges that could last up to 2 seconds. The frequency of the discharge s was 2 to 3 Hz. 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 Samy Tsai MD SCIENCE TECHNICIAN * Samy Tsai MD - 12/15/2019 9:31 AM NANOSCIENCE TECHNICIAN Associated Order(s): EEG VIDEO MONITORING Name: RAJIV CULLEN _[id number] Date of : 1970 Attending Physician: Samy Tsai MD DATE OF STUDY: 12/14/2019 EEG# [id number] OBJECT: Evaluate for epilepsy using 21-channel continuous video EEG monitoring. FINDINGS: The background consisted of a normal symmetric posterior predominant alpha frequency rhythm seen symmetrically during wakefulness. There was progres magdalena into sleep with normal symmetric sleep morphologies. There were occasional bursts of theta frequency slowing as well as high voltage sharp appearing disch arges seen over the right posterior temporal region, typically with phase revers al at the T6 electrode. In addition to these focal abnormalities, there were oc casional brief bursts of generalized but bifrontally predominant high voltage po harjeet formed spike and wave discharges that typically lasted up to 2 or 3 seconds . The frequency of the discharges ranged from 2 to 3 Hz. ekg monitor showe d a regular rhythm throughout. PUSHBUTTON EVENTS: There were no pushbutton events recorded. IMPRESSION: This 24 hour video EEG telemetry captured no pushbutton events and no electrographic seizures. As described previously, brief bursts typically las ting less than 1 second of theta frequency slowing as well as high voltage sharp appearing discharges were seen over the right posterior temporal region. This indicates focal cortical and subcortical dysfunction in this region and could re present a potential focus for epileptogenesis. In addition to these focal abnor malities, there were occasional brief bursts of poorly formed generalized but bi frontally predominate spike and wave discharges that could last up to 2 seconds. The frequency of the discharges was 2 to 3 Hz. These findings are more consis tent with an idiopathic primary generalized epilepsy condition. Samy Tsai MD SCIENCE TECHNICIAN * Samy Tsai MD - 12/14/2019 9:15 AM NANOSCIENCE TECHNICIAN Associated Order(s): EEG VIDEO MONITORING Name: RAJIV CULLEN _[id number] Date of : 1970 Attending Physician: Samy Tsai MD DATE OF STUDY: 12/13/2019 EEG# [id number] OBJECT: Evaluate for epilepsy using 21-channel continuous video EEG monitoring. FINDINGS: The background consisted of a normal symmetric posterior predominant alpha frequency rhythm seen symmetrically during wakefulness. There was progres magdalena into sleep with normal symmetric sleep morphologies. There were occasional bursts of theta frequency slowing as well as high voltage sharp appearing disch arges seen over the right posterior temporal region, typically with phase revers al at the T6 electrode. ekg monitor showed a regular rhythm throughout. PUSHBUTTON EVENTS: There were no pushbutton events recorded. IMPRESSION: This 24 hour video EEG telemetry captured no pushbutton events and no electrographic seizures. However, brief bursts typically lasting less than 1 second of theta frequency slowing as well as high voltage sharp appearing disch arges were seen over the right posterior temporal region. This indicates focal cortical and subcortical dysfunction in this region and could represent a potent ial focus for epileptogenesis. Samy Tsai MD SCIENCE TECHNICIAN * Samy Tsai MD - 12/13/2019 8:21 AM NANOSCIENCE TECHNICIAN Associated Order(s): EEG VIDEO MONITORING Name: RAJIV CULLEN _[id number] Date of : 1970 Attending Physician: Samy Tsai MD DATE OF STUDY: 12/12/2019 EEG# [id number] OBJECT: Evaluate for epilepsy using 21-channel continuous video EEG monitoring. FINDINGS: The background consisted of a normal symmetric posterior predominant alpha frequency rhythm seen symmetrically during wakefulness. There was progres magdalena into sleep with normal symmetric sleep morphologies. There were occasional bursts of theta frequency slowing as well as high voltage sharp appearing disch arges seen over the right posterior temporal region, typically with phase revers al at the T6 electrode. ekg monitor showed a regular rhythm throughout. PUSHBUTTON EVENTS: There were no pushbutton events recorded. IMPRESSION: This 24 hour video EEG telemetry captured no pushbutton events and no electrographic seizures. However, brief bursts typically lasting less than 1 second of theta frequency slowing as well as high voltage sharp appearing disch arges were seen over the right posterior temporal region. This indicates focal cortical and subcortical dysfunction in this region and could represent a potent ial focus for epileptogenesis. Samy Tsai MD SCIENCE TECHNICIAN * Samy Tsai MD - 12/12/2019 8:28 AM NANOSCIENCE TECHNICIAN Associated Order(s): TRANSCRIBED EEG REPORT Name: RAJIV CULLEN _[id number] Date of : 1970 Attending Physician: Samy Tsai MD Date of Procedure: 12/11/2019 DATE OF STUDY: 12/11/2019 EEG# [id number] OBJECT: Evaluate for epilepsy using 21-channel continuous video EEG monitoring. FINDINGS: The background consisted of a normal symmetric posterior predominant alpha frequency rhythm seen symmetrically during wakefulness. There was progres magdalena into sleep with normal symmetric sleep morphologies. There were occasional bursts of theta frequency slowing as well as high voltage sharp appearing disch arges seen over the right posterior temporal region, typically with phase revers al at the T6 electrode. ekg monitor showed a regular rhythm throughout. PUSHBUTTON EVENTS: There were no pushbutton events recorded. IMPRESSION: This video EEG telemetry was recorded for approximately 14 hours an d captured no pushbutton events and no electrographic seizures. However, brief bursts typically lasting less than 1 second of theta frequency slowing as well a s high voltage sharp appearing discharges were seen over the right posterior tem poral region. This indicates focal cortical and subcortical dysfunction in this region and could represent a potential focus for epileptogenesis. Samy Tsai MD [id number] CC: SCIENCE TECHNICIAN documented in this encounter Nursing Notes * Latha Nguyen RN - 12/15/2019 8:51 AM NANOSCIENCE TECHNICIAN Patient had seizure activity at 0838, this RN notified by EMU. Patient exhibite d generalized stiffness with occassional spastic arm movements, raising them abo ve her head. Patient exhibited foaming at the mouth and breathing through her l ips which appeared slightly blue. HR in the 140s & Pulse ox 80% at this time, This RN and winding inspector and tester Sophy at bedside provided o2 via nasal canula, improved to 99%; patient positioned onto her side & orally suctioned. Seizure lasted about 2 minutes with a postictal period of 10 min. Patient was aphasic and unable to follow commands postictally, able to track movement with eyes. Patient now following commands and answering orientation questions, though delayed in speech. Patient unaware of siezure, remembers that she is in the hospital. Patient is now on RA sating 97%, HR 124. Emotional support provided. Will continue to monitor. Update: 09 Pt had just received AM medication, and requested to use the restro om. When the patient began sitting on the edge of the bed, she leaned back into the bed and started seizing. Patient exhibited generalized stiffness and jerki ng, patient's arms raised in front of her, she began foaming and blowing through her lips. Staff arrived to assist this RN to get the patient safely back into bed. Patient's o2 sat at this time was 76%; o2 applied via NC, o2 improved to 95 %. Oral suction completed. This seizure lasted approximately 2 minutes. Patient was combative and agitated postictally, yelling & swatting at staff, repeating "no" & "please." Patient given emotional support and eventually calmed down, 1mg ativan given, per Dr Tsai. Verbal order to give 1200mg of banzel to equal home dose, however only 400mg available from home med supply. Dr. Tsai notified of this. Patient stated she will see if anyone can bring her more of this med from home, as we do not have it at our pharmacy. Will continue to monitor. SCIENCE TECHNICIAN documented in this encounter Miscellaneous Notes * End of Shift Note - Latha Nguyen RN - 12/17/2019 2:29 PM NANOSCIENCE TECHNICIAN End of Shift Summary and Plan of Care Telemetry removed and returned to nurse's station. IV removed, catheter intact, no s/s of infection at site. Discharge instructions reviewed with the patient at bedside. No questions or concerns at this time. Patient's belongings were ga thered and home meds were returned to patient. Room was assessed to be sure no items were left behind. Patient belonging bag found - patient called and notifi ed that belongings were left in the room. Patient returned to the floor to yocasta ect them. Patient ambulated out with this RN where her father provided transpo rtation home to self care. Fall Prevention Plan Fall prevention interventions and safe environment main tained, see the Daily Cares/Safety flowsheet for documentation. High Risk Seizure Seizure precautions in place. Patient remained free of inj ury related to seizure. See flowsheets for documentation. Goals/Plan for Shift Patient/Family stated goal for shift: Go home today Nursing goal for shift: maintain safety of pt, neuro intact, monitor for sz acti vity Plan: q6 neuro and vitals, veeg, sz and falll precautions Goals/Plan for Hospital Stay Patient/Family stated goal for hospital stay: Determine where the seizure is com ing from/ quit smoking Nursing goal for hospital stay: Seizure protocol Plan: Seizure protocol SCIENCE TECHNICIAN * End of Shift Note - Venice Chin RN - 12/17/2019 2:58 AM NANOSCIENCE TECHNICIAN End of Shift Summary and Plan of Care A&O x4. No acute neuro changes. No sz like activity noted. Pt c/o back pain & sore flu shot site in LUE, norco x1 & ibuprofen x1 given. Will continue to monitor. Fall Prevention Plan Fall prevention interventions and safe environment main tained, see the Daily Cares/Safety flowsheet for documentation. High Risk Seizure Seizure precautions in place. Patient remained free of inj ury related to seizure. See flowsheets for documentation. Goals/Plan for Shift Patient/Family stated goal for shift: sleep and go home tomorrow Nursing goal for shift: maintain safety of pt, neuro intact, monitor for sz acti vity Plan: q6 neuros and vitals, VEEG monitoring, sz & fall precautions in place Goals/Plan for Hospital Stay Patient/Family stated goal for hospital stay: Determine where the seizure is com ing from/ quit smoking Nursing goal for hospital stay: Seizure protocol Plan: Seizure protocol SCIENCE TECHNICIAN * End of Shift Note - Nori Tucker RN - 12/16/2019 5:18 PM NANOSCIENCE TECHNICIAN End of Shift Summary and Plan of Care Patient A & O X4. VSS, neuro checks unchanged, no seizure activity. 20 G in the R AC, S/L. No significant events this shift. Fall Prevention Plan Fall prevention interventions and safe environment main tained, see the Daily Cares/Safety flowsheet for documentation. High Risk Seizure Seizure precautions in place. Patient remained free of inj ury related to seizure. See flowsheets for documentation. Goals/Plan for Shift Patient/Family stated goal for shift: "no seizures" Nursing goal for shift: Maintain seizure precautions in place Plan: Hourly rounding to ensure needs are met. Q4 Neuro checks, Monitor VS, VEEG monitoring Goals/Plan for Hospital Stay Patient/Family stated goal for hospital stay: Determine where the seizure is com ing from/ quit smoking Nursing goal for hospital stay: Seizure protocol Plan: Seizure protocol SCIENCE TECHNICIAN * End of Shift Note - Wendy Howard RN - 12/16/2019 4:54 AM NANOSCIENCE TECHNICIAN End of Shift Summary and Plan of Care No acute changes this shift. Home medication doses given at bedtime. Patient ple asant and slept well this shift. PRN [place] given X1 for pain. Continue to monito r for seizure like activity. Fall Prevention Plan Fall prevention interventions and safe environment main tained, see the Daily Cares/Safety flowsheet for documentation. High Risk Seizure Seizure precautions in place. Patient remained free of inj ury related to seizure. See flowsheets for documentation. Goals/Plan for Shift Patient/Family stated goal for shift: Rest Nursing goal for shift: No injury r/t seizure or falls Plan: VEEG monitoring, seizure and fall precautions Goals/Plan for Hospital Stay Patient/Family stated goal for hospital stay: Determine where the seizure is com ing from/ quit smoking Nursing goal for hospital stay: Seizure protocol Plan: Seizure protocol SCIENCE TECHNICIAN * End of Shift Note - Latha Nguyen RN - 12/15/2019 6:11 PM NANOSCIENCE TECHNICIAN End of Shift Summary and Plan of Care Patient had 2 seizures this shift, 1 mg ativan given; see previous nursing note for details. Home meds were brought to floor by patient's father. Patient A&O x4, no neuro deficits. [place] given x1 for pain. Patient up with x1 contact gu keely assist & gait belt. Seizure precautions in place. Fall Prevention Plan Fall prevention interventions and safe environment main tained, see the Daily Cares/Safety flowsheet for documentation. High Risk Seizure Seizure precautions in place. Patient remained free of inj ury related to seizure. See flowsheets for documentation. Goals/Plan for Shift Patient/Family stated goal for shift: Rest Nursing goal for shift: No injury r/t seizure or falls Plan: VEEG monitoring, seizure and fall precautions Goals/Plan for Hospital Stay Patient/Family stated goal for hospital stay: Determine where the seizure is com ing from/ quit smoking Nursing goal for hospital stay: Seizure protocol Plan: Seizure protocol SCIENCE TECHNICIAN * End of Shift Note - Wedny Howard RN - 12/15/2019 5:16 AM NANOSCIENCE TECHNICIAN End of Shift Summary and Plan of Care No acute events this shift. No complaints of pain. Patient a little restless and pulled some leads off, but was able to relax after this. Continue to monitor fo r seizure like activity. Fall Prevention Plan Fall prevention interventions and safe environment main tained, see the Daily Cares/Safety flowsheet for documentation. High Risk Seizure Seizure precautions in place. Patient remained free of inj ury related to seizure. See flowsheets for documentation. Goals/Plan for Shift Patient/Family stated goal for shift: Rest Nursing goal for shift: Monitor for seizure activity, maintain pt safety Plan: Continue VEEG, educate patient on use of push button activity for VEEG, st and by assist while ambulating Goals/Plan for Hospital Stay Patient/Family stated goal for hospital stay: Determine where the seizure is com ing from/ quit smoking Nursing goal for hospital stay: Seizure protocol Plan: Seizure protocol SCIENCE TECHNICIAN * End of Shift Note - Stacy Lombardi RN - 12/14/2019 5:10 PM NANOSCIENCE TECHNICIAN End of Shift Summary and Plan of Care No acute changes throughout shift, remains A&O x 4. No seizure like activity. Imodium given once for diarrhea- symptoms occurred d/t changing her medication dosages. Pt reports bowel changes are common for her when starting and stopping her seizure medication. Continuing to monitor for seizure like activity. Fall Prevention Plan Fall prevention interventions and safe environment main tained, see the Daily Cares/Safety flowsheet for documentation. High Risk Seizure Seizure precautions in place. Patient remained free of inj ury related to seizure. See flowsheets for documentation. Goals/Plan for Shift Patient/Family stated goal for shift: Rest Nursing goal for shift: Monitor for seizure activity, maintain pt safety Plan: Continue VEEG, educate patient on use of push button activity for VEEG, st and by assist while ambulating Goals/Plan for Hospital Stay Patient/Family stated goal for hospital stay: Determine where the seizure is com ing from/ quit smoking Nursing goal for hospital stay: Seizure protocol Plan: Seizure protocol SCIENCE TECHNICIAN * End of Shift Note - Shawnee Elizondo RN - 12/14/2019 4:36 AM NANOSCIENCE TECHNICIAN End of Shift Summary and Plan of Care Pt A&O X4. No c/o pain this shift. Pt had one push button events this shift noted it was an accident from the pt. Pt slept well. Fall and seizure precautions in place. Fall Prevention Plan Fall prevention interventions and safe environment main tained, see the Daily Cares/Safety flowsheet for documentation. High Risk Seizure Seizure precautions in place. Patient remained free of inj ury related to seizure. See flowsheets for documentation. Goals/Plan for Shift Patient/Family stated goal for shift: "get out of here" Nursing goal for shift: Maintain pt. safety, seizure precautions Plan: Hourly rounding to ensure needs are met, [id number] checks, monitor VS Goals/Plan for Hospital Stay Patient/Family stated goal for hospital stay: Determine where the seizure is com ing from/ quit smoking Nursing goal for hospital stay: Seizure protocol Plan: Seizure protocol SCIENCE TECHNICIAN * End of Shift Note - Nori Tucker RN - 12/13/2019 4:37 PM NANOSCIENCE TECHNICIAN End of Shift Summary and Plan of Care A % O X4. No neuro changes, VSS. Patient expresses she has began to feel some di zziness and blurred vision which has happened prior to seizures in the past. Shayla foote precuations in place, side rails up, 02 and suction set-up, and bed alarm o n C/o PETIT & hip pain at 1420, PRN [place] given. 20 G in the R AC S/L. No seizure activity this shift. Fall Prevention Plan Fall prevention interventions and safe environment main tained, see the Daily Cares/Safety flowsheet for documentation. High Risk Seizure Seizure precautions in place. Patient remained free of inj ury related to seizure. See flowsheets for documentation. Goals/Plan for Shift Patient/Family stated goal for shift: "get out of here" Nursing goal for shift: Maintain pt. safety, seizure precautions Plan: Hourly rounding to ensure needs are met, R1lptzl checks, monitor VS Goals/Plan for Hospital Stay Patient/Family stated goal for hospital stay: Determine where the seizure is com ing from/ quit smoking Nursing goal for hospital stay: Seizure protocol Plan: Seizure protocol SCIENCE TECHNICIAN * Care Progression Initial Assessment - [facility], FACILITY SECURITY OFFICER - 12/13/2019 8:25 AM NANOSCIENCE TECHNICIAN Care Progression Initial Assessment Note SW reviewed EMR. Initial assessment completed. Information obtained from: Pt. S W Introduced self and purpose of meeting. The patient was agreeable to interview . Reason for Hospitalization: Seizures Anticipate Discharge Plan: [facility] Prior function: Pt reports being independent with ADLs w/o use of DME's or O2 pr ior to hospitalization. In Home Support: Pt lives alone. Pt. reportedly has ability to have 24/7 in home support provided by father and daughter. Home Layout: w/c ramp to front entrance; Pt. Can perform all ADLs on one level o f home. Marital Status: Pt. Rep: Father Charla Mireles #[phone] Transportation at Discharge: father Charla Mireles Transportation to Appointments: Father Previous Placements : Pt. Denies prior hx Previous Home Services: Pt. Denies prior hx Previous Home Infusion: Pt. Denies prior hx O2/Respiratory items: Pt. Denies prior hx RX Coverage: YES Able to afford medications: YES Patient's Preferred Pharmacy: [id number] - [place], [place] - [address] [facility] [id number] [facility] [place], [place] - [address] [place] [address] [facility] - [place], [place] - [address] [place] [address] PCP: Freedom Villarreal MD [phone] Face Sheet Verified: Yes Additional information: 12/13/19827 Referral Data Referral Source Care Progression Referral Name Christina Chanel LCSW Referral Reason Discharge planning Patient Information Primary Caregiver Self Information obtained from: Pt Support System Children;Parents Living Arrangement House Patient Concerns No Assistive Devices Assistive Devices None Respiratory Respiratory items: (none reported) Income Information Income Source Not employed Not employed Disabled Government Assistance Medicaid;Medicare Income/Expense Information Income meets expenses Resources Resources Available Rx benefits Christina Chanel LCSW 12/13/2019 8:32 AM [id number] ([place]) SCIENCE TECHNICIAN * End of Shift Note - Shawnee Elizondo RN - 12/13/2019 5:30 AM NANOSCIENCE TECHNICIAN End of Shift Summary and Plan of Care Pt A&O X4. No c/o pain this shift. Pt had no push button events this shift. Pt slept well. Fall and seizure precautions in place. Fall Prevention Plan Fall prevention interventions and safe environment main trini, see the Daily Cares/Safety flowsheet for documentation. High Risk Seizure Seizure precautions in place. Patient remained free of inj ury related to seizure. See flowsheets for documentation. Goals/Plan for Shift Patient/Family stated goal for shift: Rest Nursing goal for shift: Maintain pt safety, no falls, no acute neuro changes Plan: q6 neuro checks, call light education, assist patient when ambulating- hol d VEEG cords as pt ambulates Goals/Plan for Hospital Stay Patient/Family stated goal for hospital stay: Determine where the seizure is com ing from/ quit smoking Nursing goal for hospital stay: Seizure protocol Plan: Seizure protocol SCIENCE TECHNICIAN * End of Shift Note - Stacy Lombardi RN - 12/12/2019 5:48 PM NANOSCIENCE TECHNICIAN End of Shift Summary and Plan of Care Pt had no acute changes throughout shift, remains A&Ox4. Pt had no seizure like activity. Vital signs remain stable. Home seizure medications were adjusted and started to wean today in order to possible assess seizure activity without medications. Continuing to monitor. Fall Prevention Plan Fall prevention interventions and safe environment main tained, see the Daily Cares/Safety flowsheet for documentation. High Risk Seizure Seizure precautions in place. Patient remained free of inj ury related to seizure. See flowsheets for documentation. Goals/Plan for Shift Patient/Family stated goal for shift: Rest Nursing goal for shift: Maintain pt safety, no falls, no acute neuro changes Plan: q6 neuro checks, call light education, assist patient when ambulating- hol d VEEG cords as pt ambulates Goals/Plan for Hospital Stay Patient/Family stated goal for hospital stay: Determine where the seizure is com ing from/ quit smoking Nursing goal for hospital stay: Seizure protocol Plan: Seizure protocol SCIENCE TECHNICIAN * End of Shift Note - Yefri Grant RN - 12/12/2019 6:34 AM NANOSCIENCE TECHNICIAN End of Shift Summary and Plan of Care No acute events overnight. VSS, pt's pain is controlled w/ prn and scheduled med s. Pt on Video EEG and had no seizure like events. Fall Prevention Plan Fall prevention interventions and safe environment main tained, see the Daily Cares/Safety flowsheet for documentation. High Risk Seizure Seizure precautions in place. Patient remained free of inj ury related to seizure. See flowsheets for documentation. Goals/Plan for Shift Patient/Family stated goal for shift: VEEG Nursing goal for shift: Seizure precuations in place, ensure comfort Plan: Hourly rounding, Seizure precautions. Goals/Plan for Hospital Stay Patient/Family stated goal for hospital stay: Determine where the seizure is com ing from/ quit smoking Nursing goal for hospital stay: Seizure protocol Plan: Seizure protocol SCIENCE TECHNICIAN * End of Shift Note - Nori Tucker RN - 12/11/2019 5:24 PM NANOSCIENCE TECHNICIAN End of Shift Summary and Plan of Care Patient arrived on unit at [address]. Patient A & O X4, Neuro checks 0, VSS. Seizure precautions in place with padded side rails, suction and O2, chair alarms, and safety belts. IV placed in Right AC, SL. C/o lower back pain, PRN [place] given. Patient on RA during days. 3.5L/min at HS. Fall Prevention Plan Fall prevention interventions and safe environment main tained, see the Daily Cares/Safety flowsheet for documentation. High Risk Seizure Seizure precautions in place. Patient remained free of inj ury related to seizure. See flowsheets for documentation. Goals/Plan for Shift Patient/Family stated goal for shift: [place] to room and VEEG Nursing goal for shift: Seizure precuations in place, ensure comfort Plan: Hourly rounding, Seizure precautions. Goals/Plan for Hospital Stay Patient/Family stated goal for hospital stay: Determine where the seizure is com ing from/ quit smoking Nursing goal for hospital stay: Seizure protocol Plan: Seizure protocol SCIENCE TECHNICIAN documented in this encounter Plan of Treatment Care Team Description Date Type Specialty Hortencia Stewart, FOILING MACHINE OPERATOR [address] [address] [phone] 03/31/2020 Office Visit Neurology Date/Time Name Type Priority Associated Diag noses 12/11/2019 10:45 AM NANOSCIENCE TECHNICIAN EEG video monitoring Neurology Routine documented as of this encounter Procedures Comments Procedure Name Priority Date/Time Associated Diag nosis GLUCOSE POC Routine 12/17/2019 6:12 AM NANOSCIENCE TECHNICIAN EEG VIDEO MONITORING Routine 12/17/2019 12:10 AM NANOSCIENCE TECHNICIAN GLUCOSE POC Routine 12/16/2019 11:07 PM NANOSCIENCE TECHNICIAN EEG VIDEO MONITORING Routine 12/16/2019 12:10 AM NANOSCIENCE TECHNICIAN EEG VIDEO MONITORING Routine 12/15/2019 12:10 AM NANOSCIENCE TECHNICIAN EEG VIDEO MONITORING Routine 12/14/2019 12:10 AM NANOSCIENCE TECHNICIAN EEG VIDEO MONITORING Routine 12/13/2019 12:10 AM NANOSCIENCE TECHNICIAN TRANSCRIBED EEG REPORT 12/12/2019 8:28 AM NANOSCIENCE TECHNICIAN EEG VIDEO MONITORING Routine 12/12/2019 12:10 AM NANOSCIENCE TECHNICIAN documented in this encounter Results * GLUCOSE POC (12/17/2019 6:12 AM NANOSCIENCE TECHNICIAN) Only the most recent of 2 results within the time period is included. Glucose POC 102 (H) 70 - 100 mg/dL [facility] Specimen Performing Organization Address City/State/Zipcode Ph one Number [address] [address] LABORATORIES * EEG video monitoring (12/17/2019 12:10 AM NANOSCIENCE TECHNICIAN) Specimen Narrative Performed At Samy Tsai MD 12/17/2019 1:48 PM [facility] Name: RAJIV CULLEN _[id number] [...] arges ranged from 2 to 3 Hz. ekg monitor showed a regular rhythm throughout. [place] EVENTS: [...] Performing Organization Address City/State/Zipcode Ph one Number [facility] * EEG video monitoring (12/16/2019 12:10 AM NANOSCIENCE TECHNICIAN) Specimen Narrative Performed At Samy Tsai MD 12/17/2019 8:07 AM [facility] Name: RAJIV CULLEN _[id number] [...] arges ranged from 2 to 3 Hz. ekg monitor showed a regular rhythm throughout. [place] EVENTS: [...] Performing Organization Address City/State/Zipcode Ph one Number [facility] * EEG video monitoring (12/15/2019 12:10 AM NANOSCIENCE TECHNICIAN) Specimen Narrative Performed At Samy Tsai MD 12/16/2019 8:39 AM [facility] Name: RAJIV CULLEN _[id number] [...] arges ranged from 2 to 3 Hz. ekg monitor showed a regular rhythm throughout. [place] EVENTS: [...] look up and slightly towards the right. Sh e then fidgeted in bed slightly for just [...] seizure lasted slightly more than 1 min [place] and generalized slowing was seen afterwards. IMPRESSION: [...] condition. Samy Tsai MD Performing Organization Address City/State/[facility] Ph one Number [facility] * EEG video monitoring (12/14/2019 12:10 AM NANOSCIENCE TECHNICIAN) Specimen Narrative Performed At Samy Tsai MD 12/15/2019 9:41 AM [facility] Name: RAJIV CULLEN _[id number] [...] arges ranged from 2 to 3 Hz. ekg monitor showed a regular rhythm throughout. [place] EVENTS: [...] Performing Organization Address City/State/Zipcode Ph one Number [facility] * EEG video monitoring (12/13/2019 12:10 AM NANOSCIENCE TECHNICIAN) Specimen Narrative Performed At Samy Tsai MD 12/14/2019 9:16 AM [facility] Name: RAJIV CULLEN _[id number] [...] with phase reversal at the T6 electrode. ekg monitor showed a regular rhythm through out. [place] [...] Performing Organization Address City/State/Zipcode Ph one Number [facility] * TRANSCRIBED EEG REPORT (12/12/2019 8:28 AM NANOSCIENCE TECHNICIAN) Procedure Note Samy Tsai MD - 12/12/2019 8:28 AM NANOSCIENCE TECHNICIAN Name: RAJIV CULLEN _[id number] Date of : [...] with phase reversal at the T6 electrode. ekg monitor showed a regular rhythm throughout. [place] EVENTS: [...] potential focus for epileptogenesis. Samy Tsai MD [id number] CC: * EEG video monitoring (12/12/2019 12:10 AM NANOSCIENCE TECHNICIAN) Specimen Narrative Performed At Samy Tsai MD 12/13/2019 8:22 AM [facility] Name: RAJIV CULLEN _[id number] [...] with phase reversal at the T6 electrode. ekg monitor showed a regular rhythm through out. 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, without mention of intractabl e epilepsy documented in this encounter Administered Medications Action Date Dose Rate Site Medication Order MAR Action 12/12/2019 9:03 AM NANOSCIENCE TECHNICIAN 100 mg brivaracetam (BRIVIACT) tablet 100 mg Given 100 mg, Oral, 2 times daily, Indications: focal epilepsy, First dose on Tue12/11/19 at 1230 100 mg Given 12/12/2019 12:13 AM NANOSCIENCE TECHNICIAN 100 mg Given 12/11/2019 2:16 PM NANOSCIENCE TECHNICIAN 12/17/2019 8:32 AM NANOSCIENCE TECHNICIAN 100 mg brivaracetam (BRIVIACT) tablet 100 mg Given 100 mg, Oral, 2 times daily, First dose on Tue12/15/19 at 1030 100 mg Given 12/16/2019 9:42 PM NANOSCIENCE TECHNICIAN 100 mg Given 12/16/2019 9:37 AM NANOSCIENCE TECHNICIAN 12/13/2019 8:05 AM NANOSCIENCE TECHNICIAN 50 mg brivaracetam (BRIVIACT) tablet 50 mg Given 50 mg, Oral, 2 times daily, Indications : focal epilepsy, First dose (after last modification) on Tue12/12/19 at 2100 50 mg Given 12/12/2019 9:35 PM NANOSCIENCE TECHNICIAN 12/17/2019 8:32 AM NANOSCIENCE TECHNICIAN 1 tablet calcium-vitamin D 500 mg(1,250mg) -200 Given unit(5mcg) per tablet 1 tablet 1 tablet, Oral, 3 times daily, First dose on Tue12/11/19 at 1145, Contains 500 mg elemental calcium per tablet, 1 tablet Given 12/16/2019 9:42 PM NANOSCIENCE TECHNICIAN 1 tablet Given 12/16/2019 4:06 PM NANOSCIENCE TECHNICIAN 12/17/2019 8:32 AM NANOSCIENCE TECHNICIAN 25 mg carvedilol (COREG) tablet 25 mg Given 25 mg, Oral, 2 times daily, First dose on Tue12/11/19 at 1145 25 mg Given 12/16/2019 9:42 PM NANOSCIENCE TECHNICIAN 25 mg Given 12/16/2019 9:37 AM NANOSCIENCE TECHNICIAN 12/17/2019 8:33 AM NANOSCIENCE TECHNICIAN 500 mcg cyanocobalamin (VITAMIN B-12) tablet 500 Given mcg 500 mcg, Oral, Daily, First dose on Tue12/11/19 at 1145 500 mcg Given 12/16/2019 9:37 AM NANOSCIENCE TECHNICIAN 500 mcg Given 12/15/2019 9:36 AM NANOSCIENCE TECHNICIAN 12/15/2019 8:38 PM NANOSCIENCE TECHNICIAN 60 mcg Left Del toid flu vaccine [id number] (PF) Given (FLULAVAL/FLUZONE QUAD) injection 60 mc g 60 mcg (0.5 mL), Intramuscular, During hospitalization, immunization, Starting Tue12/11/19 at 1100, For 1 dose, Administer as soon as possible during hospitalization., 12/17/2019 7:46 AM NANOSCIENCE TECHNICIAN 1 puff fluticasone furoate-vilanterol (BREO Given ELLIPTA) 100-25 mcg/actuation inhaler 1 puff 1 puff, Inhalation, Daily, First dose o n Tue12/11/19 at 1230 1 puff Given 12/16/2019 8:37 AM NANOSCIENCE TECHNICIAN 1 puff Given 12/15/2019 8:02 AM NANOSCIENCE TECHNICIAN 12/17/2019 8:33 AM NANOSCIENCE TECHNICIAN 1 mg folic acid (FOLVITE) tablet 1 mg Given 1 mg, Oral, Daily, Indications: prevent neural tube defect, First dose on Tue12/11/19 at 1145 1 mg Given 12/16/2019 9:37 AM NANOSCIENCE TECHNICIAN 1 mg Given 12/15/2019 9:37 AM NANOSCIENCE TECHNICIAN 12/16/2019 9:47 PM NANOSCIENCE TECHNICIAN 1 tablet HYDROcodone-acetaminophen (NORCO) 5-325 Given mg per tablet 1 tablet 1 tablet, Oral, Every 4 hours PRN, moderate pain (pain score 4-6), Startin g Tue12/11/19 at 1117, Do not exceed 4 GM/DAY of acetaminophen. If 65 or olde r do not exceed 3 GM/DAY. If chronic alcoholic do not exceed 2 GM/DAY., 1 tablet Given 12/15/2019 8:54 PM NANOSCIENCE TECHNICIAN 1 tablet Given 12/15/2019 9:36 AM NANOSCIENCE TECHNICIAN 12/17/2019 12:47 AM NANOSCIENCE TECHNICIAN 800 mg ibuprofen (ADVIL,MOTRIN) tablet 800 mg Given 800 mg, Oral, Every 8 hours PRN, mild pain (pain score 1-3), Starting Tue12/11/19 at 1118 12/14/2019 8:29 AM NANOSCIENCE TECHNICIAN 100 mg lamoTRIgine (LaMICtal) tablet 100 mg Given 100 mg, Oral, 3 times daily, First dose (after last modification) on Tue 0 at 1600 100 mg Given 12/13/2019 8:23 PM NANOSCIENCE TECHNICIAN 100 mg Given 12/13/2019 4:32 PM NANOSCIENCE TECHNICIAN 12/13/2019 8:05 AM NANOSCIENCE TECHNICIAN 150 mg lamoTRIgine (LaMICtal) tablet 150 mg Given 150 mg, Oral, 3 times daily, First dose (after last modification) on Tue 0 at 1600 150 mg Given 12/12/2019 9:33 PM NANOSCIENCE TECHNICIAN 150 mg Given 12/12/2019 3:44 PM NANOSCIENCE TECHNICIAN 12/15/2019 10:22 AM NANOSCIENCE TECHNICIAN 150 mg lamoTRIgine (LaMICtal) tablet 150 mg Given 150 mg, Oral, Once, 12/15/19 at 1030 , For 1 dose 12/12/2019 9:04 AM NANOSCIENCE TECHNICIAN 200 mg lamoTRIgine (LaMICtal) tablet 200 mg Given 200 mg, Oral, 3 times daily, First dose on Tue12/11/19 at 1145 200 mg Given 12/11/2019 8:51 PM NANOSCIENCE TECHNICIAN 200 mg Given 12/11/2019 4:44 PM NANOSCIENCE TECHNICIAN 12/17/2019 8:32 AM NANOSCIENCE TECHNICIAN 200 mg lamoTRIgine (LaMICtal) tablet 200 mg Given 200 mg, Oral, 3 times daily, First dose (after last modification) on Tue 0 at 1600 200 mg Given 12/16/2019 9:42 PM NANOSCIENCE TECHNICIAN 200 mg Given 12/16/2019 4:06 PM NANOSCIENCE TECHNICIAN 12/15/2019 9:36 AM NANOSCIENCE TECHNICIAN 50 mg lamoTRIgine (LaMICtal) tablet 50 mg Given 50 mg, Oral, 3 times daily, First dose (after last modification) on Tue 0 at 1600 50 mg Given 12/14/2019 8:22 PM NANOSCIENCE TECHNICIAN 50 mg Given 12/14/2019 4:34 PM NANOSCIENCE TECHNICIAN 12/17/2019 8:32 AM NANOSCIENCE TECHNICIAN 145 mcg linaCLOtide (LINZESS) capsule 145 mcg Given 145 mcg, Oral, Daily, First dose on Tue12/11/19 at 1145, Patient supplied medication. Please return to patient upon discharge , 145 mcg Given 12/16/2019 9:43 AM NANOSCIENCE TECHNICIAN 145 mcg Given 12/15/2019 9:37 AM NANOSCIENCE TECHNICIAN 12/17/2019 1:15 PM NANOSCIENCE TECHNICIAN 2 mg loperamide (IMODIUM) capsule 2 mg Given 2 mg, Oral, Every 4 hours PRN, diarrhea , Starting Tue12/14/19 at 1404, Do not exceed 16 mg in 24 hours., 2 mg Given 12/14/2019 2:40 PM NANOSCIENCE TECHNICIAN 12/15/2019 10:14 AM NANOSCIENCE TECHNICIAN 1 mg LORazepam (ATIVAN) injection 1 mg Given 1 mg, Intravenous, As needed, seizures, maxiumum 8 mg/day, Starting Tue12/11/19 at 1043, Administer for any of the following: One generalized tonic-clonic ("grand mal", convulsive) seizure lasting greater than or equal to 5 minutes One complex partial seizure lasting greater than or equal to 5 minutes Three or more complex partial o r generalized tonic-clonic seizures in 24 hours Further considerations: Within 5 minutes of lorazepam first dose, if seizure continues: Give lorazepam secon d dose and page Epilepsy Service. Within 5 minutes of lorazepam second dose, if seizure continues: Page Epilepsy Service, initiate Rapid Response Team, and refer to status epilepticus guideline (Plan for Care: Seizures, Status Epilepticus) Within 1 hour of Lorazepam first or second dose, if recurrent seizure: Repeat lorazepam dos e and page the Epilepsy Service Maximum I V push rate of 2 mg/min; max IVP dose is 4 mg., 12/16/2019 9:42 PM NANOSCIENCE TECHNICIAN 9 mg melatonin tablet 9 mg Given 9 mg, Oral, Nightly, First dose on Tue12/11/19 at 2100 9 mg Given 12/15/2019 8:35 PM NANOSCIENCE TECHNICIAN 9 mg Given 12/14/2019 8:22 PM NANOSCIENCE TECHNICIAN 12/16/2019 9:42 PM NANOSCIENCE TECHNICIAN 10 mg montelukast (SINGULAIR) tablet 10 mg Given 10 mg, Oral, Nightly, First dose on Tue12/11/19 at 2100 10 mg Given 12/15/2019 8:48 PM NANOSCIENCE TECHNICIAN 10 mg Given 12/14/2019 8:23 PM NANOSCIENCE TECHNICIAN 12/17/2019 8:33 AM NANOSCIENCE TECHNICIAN 1 patch Left Arm nicotine (NICODERM CQ) 14 mg/24 hr patch Patch 1 patch Applied 1 patch, Transdermal, Administer over 2 4 Hours, Daily, First dose on Tue12/11/19 at 1115, Remove current patch before placing new patch., 1 patch Right Arm Patch Applied 12/16/2019 9:35 AM NANOSCIENCE TECHNICIAN 1 patch Right Arm Patch Applied 12/15/2019 9:38 AM NANOSCIENCE TECHNICIAN 12/16/2019 9:42 PM NANOSCIENCE TECHNICIAN 50 mg nortriptyline (PAMELOR) capsule 50 mg Given 50 mg, Oral, Nightly, First dose on Tue12/11/19 at 2100, PROTECT FROM LIGHT, 50 mg Given 12/15/2019 8:35 PM NANOSCIENCE TECHNICIAN 50 mg Given 12/14/2019 8:21 PM NANOSCIENCE TECHNICIAN 12/16/2019 9:42 PM NANOSCIENCE TECHNICIAN 20 mg pravastatin (PRAVACHOL) tablet 20 mg Given 20 mg, Oral, Nightly, First dose on Tue12/11/19 at 2100 20 mg Given 12/15/2019 8:35 PM NANOSCIENCE TECHNICIAN 20 mg Given 12/14/2019 8:21 PM NANOSCIENCE TECHNICIAN 12/11/2019 8:56 PM NANOSCIENCE TECHNICIAN 10 mg rizatriptan (MAXALT) tablet 10 mg Given 10 mg, Oral, As needed, migraine, Starting Tue12/11/19 at 1120, May repea t dose in 2 hours if no relief. Do not exceed 30 mg in 24 hours. Do not exceed 15 mg in 24 hours if taking propranolol., 12/13/2019 8:05 AM NANOSCIENCE TECHNICIAN 1,200 mg rufinamide (BANZEL) tablet 1,200 mg Given 1,200 mg, Oral, 2 times daily, First dose (after last modification) on Tue12/12/19 at 2100, Patient supplied medication. Please return to patient upon discharge , 1,200 mg Given 12/12/2019 9:38 PM NANOSCIENCE TECHNICIAN 12/12/2019 9:11 AM NANOSCIENCE TECHNICIAN 1,600 mg rufinamide (BANZEL) tablet 1,600 mg Given 1,600 mg, Oral, 2 times daily, First dose on Tue12/11/19 at 1145, Patient supplied medication. Please return to patient upon discharge , 1,600 mg Given 12/11/2019 8:57 PM NANOSCIENCE TECHNICIAN 12/17/2019 8:32 AM NANOSCIENCE TECHNICIAN 1,600 mg rufinamide (BANZEL) tablet 1,600 mg Given 1,600 mg, Oral, 2 times daily, First dose (after last modification) on Tue12/15/19 at 2100 1,600 mg Given 12/16/2019 9:42 PM NANOSCIENCE TECHNICIAN 1,600 mg Given 12/16/2019 9:41 AM NANOSCIENCE TECHNICIAN 12/15/2019 4:48 PM NANOSCIENCE TECHNICIAN 800 mg rufinamide (BANZEL) tablet 400 mg Given 400 mg, Oral, 2 times daily, First dose (after last modification) on Tue 0 at 2100, Patient supplied medication. Please return to patient upon discharge , 400 mg Given 12/15/2019 10:23 AM NANOSCIENCE TECHNICIAN 400 mg Given 12/15/2019 9:37 AM NANOSCIENCE TECHNICIAN 12/14/2019 8:29 AM NANOSCIENCE TECHNICIAN 800 mg rufinamide (BANZEL) tablet 800 mg Given 800 mg, Oral, 2 times daily, First dose (after last modification) on Tue 0 at 2100, Patient supplied medication. Please return to patient upon discharge , 800 mg Given 12/13/2019 8:24 PM NANOSCIENCE TECHNICIAN 12/12/2019 6:42 PM NANOSCIENCE TECHNICIAN 80 mg simethicone (MYLICON) chewable tablet 80 Given mg 80 mg, Oral, 4 times daily PRN, flatulence, Starting Tue12/11/19 at 112 1 12/17/2019 8:33 AM NANOSCIENCE TECHNICIAN 2 mg tolterodine (DETROL LA) 24 hr capsule 2 Given mg 2 mg, Oral, Daily, First dose on Tue12/11/19 at 1145, DO NOT CRUSH OR CHEW., 2 mg Given 12/16/2019 9:37 AM NANOSCIENCE TECHNICIAN 2 mg Given 12/15/2019 9:37 AM NANOSCIENCE TECHNICIAN 12/17/2019 6:00 AM NANOSCIENCE TECHNICIAN 225 mg venlafaxine (EFFEXOR-XR) 24 hr capsule Given 225 mg 225 mg, Oral, Every morning, First dose on Tue12/11/19 at 1145, DO NOT CRUSH OR CHEW., 225 mg Given 12/16/2019 6:23 AM NANOSCIENCE TECHNICIAN 225 mg Given 12/15/2019 6:03 AM NANOSCIENCE TECHNICIAN documented in this encounter
--- OUTSIDE RECORDS SUMMARY | 2020-02-11 03:07 | XMS REPORT | Encounter Summary ---
Author Author [facility] Organization [facility] Address Unknown Phone Unavailable Care Team Providers Care Cash Controller Name Role Phone NereydaFreedom york PCP Reason for Visit * Reason Comments Prior Authorization Briviact Encounter Details Care Team Description Date Type Department Hortencia Stewart, COMMISSIONED POLICE OFFICER [address] [place] [address] [phone] Prior Authorization (Briviact) 12/18/2019 Telephone [facility] [address] [place] [address] Social History Date Tobacco Use Types Packs/Day [...] encounter Miscellaneous Notes * Telephone Encounter - Michel Rae CMA - 12/18/2019 1:34 PM MED SPECIALIST Received fax that PA was initiated via CoverMyMeds for pt's Briviact 50 mg table ts ([place]: [id number]). Submitted and CoverMyMeds indicated PA was not needed, stat ing "Test claim pays and does not indicate a prior authorization is needed for t he requested medication/quantity under the patient's Part D prescription benefit . If you have questions or need further assistance, please call the number on th e back of the patient's insurance card." SPECIALIST documented in this encounter Plan of Treatment Care Team Description Date Type Specialty Hortencia Stewart, COMMISSIONED POLICE OFFICER [address] [address] [phone] 03/31/2020 Office Visit Neurology documented as of this encounter Visit Diagnoses Not on filedocumented in this encounter
--- OUTSIDE RECORDS SUMMARY | 2020-02-11 03:08 | XMS REPORT | Encounter Summary ---
Author Author [facility] Organization [facility] Address Unknown Phone Unavailable Care Team Providers Care Environmental Emergencies Planner Name Role Phone Freedom Villarreal PCP Encounter Details Care Team Description Date Type Department Karmen Miles NP [address] [place] [address] [phone] Migraine without aura and without status migrainosus, not intractable (Primary Dx) 10/01/2019 Orders Only [facility] [address] [place] [address] Social History Date Tobacco Use Types Packs/Day Years Used Started: 1986 Current Every Day Smoker Cigarettes 0.5 35 Smokeless Tobacco: Never Used Comments: "I've tried everything there i s" Drinks/Week oz/Week Comments Alcohol Use 0 Standard drinks or equivalent 0.0 No Sex Assigned at Date Recorded Not on file Industry Job Start Date Occupation Not on file Not on file Not on file Travel End Travel History Travel Start No recent travel history available. documented as of this encounter Plan of Treatment Care Team Description Date Type Specialty Hortencia Stewart APRN [address] [place] [address] [phone] 03/31/2020 Office Visit Neurology documented as of this encounter Visit Diagnoses Diagnosis Migraine without aura and without statu s migrainosus, not intractable documented in this encounter
--- OUTSIDE RECORDS SUMMARY | 2020-02-11 03:08 | XMS REPORT | Encounter Summary ---
Author Author [facility] Organization [facility] Address Unknown Phone Unavailable Care Team Providers Care Leather Goods I Assembler Name Role Phone EldonFreedom correa PCP Reason for Visit * Reason Comments Medication Refill Encounter Details Care Team Description Date Type Department Karmen Miles NP [address] [address] [phone] Medication Refill 10/01/2019 Refill [facility] [address] [place] [address] Social History Date Tobacco Use Types Packs/Day [...] encounter Miscellaneous Notes * Telephone Encounter - Karmen Miles NP - 10/01/2019 10:10 AM CAFETERIA CLERK Since the patient is taking 50 mg daily, I sent the 50 mg capsule to her pharmac y instead of the 10 mg capsules. TERIA CLERK documented in this encounter Plan of Treatment Care Team Description Date Type Specialty Hortencia Stewart, SEXTON HELPER [address] [facility] [address] [place] [address] [phone] 03/31/2020 Office Visit Neurology documented as of this encounter Visit Diagnoses Diagnosis Migraine without aura and without statu s migrainosus, not intractable documented in this encounter
--- OUTSIDE RECORDS SUMMARY | 2020-02-11 03:08 | XMS REPORT | Encounter Summary ---
Author Author [facility] Organization [facility] Address Unknown Phone Unavailable Care Team Providers Care Slurry Worker Name Role Phone Freedom Villarreal PCP Encounter Details Care Team Description Date Type Department Karmen Miles, LEÓN [address] [place] [address] [phone] 08/28/2019 Documentation [facility] [address] [place] [address] Social History Date Tobacco Use Types Packs/Day [...] Team Description Date Type Specialty Hortencia Stewart, CARRIE [address] [place] [address] [phone] 03/31/2020 Office Visit Neurology documented as of this encounter Visit Diagnoses Not on filedocumented in this encounter
--- OUTSIDE RECORDS SUMMARY | 2020-02-11 03:08 | XMS REPORT | Encounter Summary ---
Author Author [facility] Organization [facility] Address Unknown Phone Unavailable Care Team Providers Care Locker Room Attendant Name Role Phone PhilFreedom PCP Reason for Referral * Diagnostic Lab (Routine) Referred By Contact Referred To Contact Status Reason Specialty Diagnoses / Procedures Hortencia Stewart, AUTOMOTIVE WINDOW TINTER [address] [address] [facility] [address] [place] [phone] Pending Review Neurology Diagnoses Partial epilepsy with impairment of consciousness, intractable (HCC) P rocedures EEG video monitoring Reason for Visit * Auth/Cert Referred By Contact Referred To Contact Status Reason Specialty Diagnoses / Procedures Diagnoses seizures Partial epilepsy (HCC) Encounter Details Care Team Description Date Type Department Hortencia Stewart, CARRIE [address] [address] [phone] Partial epilepsy with impairment of cons ciousness, intractable (HCC) 12/11/2019 [facility] Encounter [address] [place] [address] Social History Date Tobacco Use Types Packs/Day [...] history available. documented as of this encounter Medications at Time of Discharge [...] a day. documented as of this encounter Plan of Treatment Care Team Description Date Type Specialty Hortencia Stewart, AUTOMOTIVE WINDOW TINTER [address] [address] [phone] 03/31/2020 Office Visit Neurology Date/Time Name Type Priority Associated Diag noses 12/11/2019 8:30 AM VENETIAN BLIND WASHER EEG video monitoring Neurology Routine Partial e pilepsy with impairment of consciousness, intractable (HCC) Order Schedule Name Type Priority Associated Diag noses As Needed for 1 Occurrences starting until 11/26/2019 EEG video monitoring Neurology Routine Partial e pilepsy with impairment of consciousness, intractable (HCC) documented as of this encounter Visit Diagnoses Diagnosis Partial epilepsy with impairment of con sciousness, intractable (HCC) Localization-related (focal) (partial) epilepsy and epileptic syndromes with complex partial seizures, with intractable epilepsy documented in this encounter
--- OUTSIDE RECORDS SUMMARY | 2020-02-11 03:08 | XMS REPORT | Encounter Summary ---
Author Author [facility] Organization [facility] Address Unknown Phone Unavailable Care Team Providers Care Property Worker Name Role Phone EldonFreedom correa PCP Reason for Visit * Auth/Cert (Routine) Referred By Contact Referred To Contact Status Reason Specialty Diagnoses / Procedures Santos Bhatti MD [address] [facility] [address] [place] [address] New Request Diagnoses Encounter for adjustment and management of neurostimulator Localization-relat ed (focal) (partial) symptomatic epilepsy and epileptic syndromes with complex partial seizures, intractable, without status epilepticus P rocedures Case request operating room: REPLACEMENT, GENERATOR, VAGUS NERVE NEUROSTIMULATOR MN IMP STIM,CRANIAL,SUBQ, >1 ARRAY Encounter Details Care Team Description Date Type Department Santos Bhatti MD [address] [facility] [address] [place] [address] REPLACEMENT, GENERATOR, VAGUS NERVE NEUR OSTIMULATOR 08/03/2019 Surgery [facility] Hospit al [address] [place], [place] [id number] Social History Date Tobacco Use Types Packs/Day [...] Signs Reading Time Taken Comments Vital Sign 115/73 08/03/2019 12:36 PM CDT Blood Pressure 101 08/03/2019 12:36 PM CDT Pulse 36.8 C (98.2 F) 08/03/2019 12:36 PM CDT Temperature 22 08/03/2019 12:36 PM CDT Respiratory Rate 96% 08/03/2019 12:36 PM CDT Oxygen Saturation - - Inhaled Oxygen Concentration 90.2 kg (198 lb 12.8 oz) 08/03/2019 9:26 AM CDT Weight 160 cm (5' 3") 08/03/2019 9:26 AM CDT Height 35.22 08/03/2019 9:26 AM CDT Body Mass Index documented in this encounter Discharge Instructions * Pre-Procedure Instructions* Edith Leach RN - 07/25/2019 9:08 AM CDT Current Outpatient Medications Medication Sig Note: ALBUTEROL INHL Inhale 2 puffs every 4 (four) hours as needed. Note:MAY Take day of surgery and bring with patient on day of surgery ALPRAZolam (XANAX) 0.25 MG tablet Take 0.25 mg by mouth 3 (three) times a da y. Note:Take day of surgery brivaracetam (BRIVIACT) 50 mg tablet Take 1 tablet (50 mg total) by mouth 2 (two) times a day. Note:Take day of surgery budesonide-formoterol (SYMBICORT) 160-4.5 mcg/actuation inhaler Inhale 2 puf fs 2 (two) times a day. Note:Take day of surgery calcium carbonate-vitamin D3 600 mg(1,500mg) -800 unit Tab Take 1 tablet by mouth 3 (three) times a day. Note:HELD carvedilol (COREG) 12.5 MG tablet Take 12.5 mg by mouth 3 (three) times a da y. Note:Take day of surgery chrom annette/brindal tamayo (GARCINIA CAMBOGIA ORAL) Take 1 tablet by mouth minh ly. Note:HELD cyanocobalamin (VITAMIN B-12) 500 MCG tablet Take 500 mcg by mouth daily. No te:HELD diphenhydrAMINE (BENADRYL) 25 mg capsule Take 50 mg by mouth as needed (Take with Hydrocodone to stop itching). Note:Take day of surgery folic acid (FOLVITE) 1 MG tablet Take 1 tablet (1 mg total) by mouth daily. Note:HELD HYDROcodone-acetaminophen (NORCO) 5-325 mg per tablet Take 1 tablet by mouth every 4 (four) hours as needed for pain. Note:MAY Take day of surgery ibuprofen (ADVIL,MOTRIN) 800 MG tablet Take 800 mg by mouth 3 (three) times a day as needed. Note:HELD ipratropium-albuterol (DUO-NEB) 0.5-3 mg/3 mL nebulizer Inhale 3 mL via nebu lizer 4 (four) times a day as needed. Note:MAY Take day of surgery lamoTRIgine (LAMICTAL) 200 MG tablet Take 1 tablet (200 mg total) by mouth 3 (three) times a day. Note:Take day of surgery linaclotide (LINZESS) 145 mcg cap Take 145 mcg by mouth daily. Note:HOLD day of surgery medroxyPROGESTERone (DEPO-PROVERA) 150 mg/mL injection Inject 150 mg intramu scularly take as directed. Every 6 weeks Note: melatonin 10 mg Tab Take 1 tablet by mouth nightly. Note:ok night before montelukast (SINGULAIR) 10 mg tablet Take 10 mg by mouth nightly. Note:ok ni ght before ondansetron (ZOFRAN) 8 MG tablet Take 8 mg by mouth every 4 (four) hours as needed for nausea. Note:MAY Take day of surgery phentermine (ADIPEX-P) 37.5 mg tablet Take 37.5 mg by mouth every morning. N ote:HOLD since last dose 07/18/19 promethazine (PHENERGAN) 25 MG tablet TK 1 T PO Q 6 H PRF NAUSEA OR VOM Note :MAY Take day of surgery rizatriptan (MAXALT) 10 MG tablet Take 1 tablet (10 mg total) by mouth as ne eded for migraine. After 2 hrs, if symptoms persist, may repeat dose x1. Max 2 d oses in 24 hrs. Note:MAY Take day of surgery rufinamide (BANZEL) 400 MG tablet Take 4 tablets (1,600 mg total) by mouth 2 (two) times a day. Note:Take day of surgery simethicone (ANTI-GAS ULTRA STRENGTH) 180 mg capsule Take 360 mg by mouth ev nicole 6 (six) hours as needed for flatulence. Note:HOLD day pf surgery simvastatin (ZOCOR) 20 MG tablet Take 20 mg by mouth nightly. Note:ok night before solifenacin (VESICARE) 10 MG tablet Take 10 mg by mouth daily. Note:Take da y of surgery UNABLE TO FIND daily. CENTRUM ADULTS TAKING 1 TAB DAILY. Note:HELD venlafaxine 225 mg ER 24 hr tablet Take 225 mg by mouth every morning. Note :Take day of surgery * Additional Instructions* Arnie Paul PA-C - 08/03/2019 Neurosurgery Follow up: Neurosurgery Clinic 08/24/19 at 11:00 am [phone] [address] [facility] [place] [address] [place] [address] Instructions Please stay off Aspirin, Plavix, blood thinners, and anti-inflammatory medica tions for 3 days after surgery and then you may resume these medications. Keep your surgical site clean and dry. Your sutures are dissolvable. No submerging the surgical site in water for 3 weeks. You may remove the dressing 3 days after surgery and shower on that day. After dressing is removed leave the surgical site open to air. Pat the incision dry after showering. Do not rub on the surgical site. Activity as tolerated. Refrain from heavy lifting. 10-15 weight restriction for the next 3 weeks. Diet it is recommended clear liquids the day of surgery and then advance as t olerated. No driving today and while taking narcotic medications. documented in this encounter Medications at Time [...] 3 unit Tab (three) times a day. chrom annette/brindal tamayo Take [...] by 0 10 mg tablet mouth nightly. ondansetron (ZOFRAN) 8 MG Take 8 mg by 0 tablet mouth every 4 (four) hours as needed for nausea. OXYGEN THERAPY Use 3.5 L in 0 each nostril nightly. simethicone (ANTI-GAS Take 360 mg 0 ULTRA [...] 0 hr tablet by mouth every morning. 06/29/2019 10/01/2019 brivaracetam (BRIVIACT) Take 1 tablet 60 tablet 5 50 mg tabletIndications: (50 mg total) focal epilepsy by mouth 2 (two) times a day. 12/11/2019 carvedilol (COREG) 12.5 Take 12.5 mg 0 MG tabletIndications: D/C by mouth 3 (three) times a day. 06/29/2019 10/01/2019 lamoTRIgine (LAMICTAL) Take 1 tablet 270 tablet 3 200 MG tabletIndications: (200 mg Partial epilepsy with total) by impairment of mouth 3 consciousness, (three) times intractable (HCC) a day. 06/21/2019 12/11/2019 phentermine (ADIPEX-P) Take 37.5 mg 0 37.5 mg tablet by mouth every morning. 06/25/2019 12/11/2019 promethazine (PHENERGAN) TK 1 T PO Q 6 1 25 MG tablet H PRF NAUSEA OR VOM 04/03/2019 12/11/2019 rizatriptan (MAXALT) 10 Take 1 tablet 10 tablet 11 MG tabletIndications: (10 mg total) Chronic migraine without by mouth as aura without status needed for migrainosus, not migraine. intractable After 2 hrs, if symptoms persist, may repeat dose x1. Max 2 doses in 24 hrs. 03/12/2019 10/01/2019 rufinamide (BANZEL) 400 Take 4 720 tablet 3 MG tabletIndications: tablets Partial epilepsy with (1,600 mg impairment of total) by consciousness, mouth 2 (two) intractable (HCC) times a day. documented as of this encounter H&P Notes * Santos Bhatti MD - 08/03/2019 10:02 AM CDT CC: End of life VNS Generator. HPI: This patient has refractory epilepsy with existing VNS system. She is here for replacement of her VNS device. Past Medical History: Diagnosis Date Allergic rhinitis seasonal allergies Anxiety Arrhythmia tachycardia Arthritis Back pain Chronic constipation COPD (chronic obstructive pulmonary disease) (HCC) Depression Difficulty falling asleep at night until feather washer hours Difficulty staying asleep Exercise tolerance finding limited by leg pain--if walking a long way will use electric cart in grocery [place] Fractures from seizures--leg and ankle fractures in past Head injury concussions from seizures--since age 21 HL (hearing loss) left ear GULKANA-no hearing aides Kidney stones Migraine Obesity JOSE ALBERTO on CPAP Osteoarthritis mainly ankles and knees and wrists and back Osteopenia Rapid heart rate reason for coreg Seizures (HCC) Sinusitis possibly--history of sinus infections Urinary tract infection Visual impairment wears glasses Past Surgical History: Procedure Laterality Date ANKLE SURGERY Bilateral 2010 x5 BRAIN SURGERY 1995 & 1997 x2 [...] PROGRAMING; Reyna geon: Sj Vivar MD; Location: [facility] Main OR; Service: ENT; Laterality : N/A; TUBAL LIGATION 1992 Family History Problem Relation Age of Onset Hyperlipidemia Mother Migraines Mother Alzheimer's disease Mother Osteoporosis Mother Hyperlipidemia Father Diabetes Father Alcohol abuse Father Heart disease Father Heart disease Other FAMILY HX Heart disease Other FAMILY HX Rheum arthritis Other FAMILY HX Migraines Cousin No Known Problems Sister No Known Problems Brother No Known Problems Daughter No Known Problems Son No Known Problems Brother ROS: 12 points reviewed and found negative with the exception of the following pertin ent positives and negatives : none Exam: The patient is appropriately conversational. GCS 15. Responds to questions appropriately. Pupils are equally reactive. Face appears symmetric to both expression and sensation. Neck is supple with good range of motion. Strength is 5/5 in the bilateral upper extremities. Strength is 5/5 in the bilateral lower extremities. Sensation is present throughout the bilateral upper and lower extremities. DTRs 2+ for bilateral achilles and patellar tendons. Patient ambulates without difficulty. Absent pronator drift. Absent dysmetria. Absent dysdiadochokinesia. Absent Spurling's sign. Absent Lasegue's sign. Absent Babinski. Social History Socioeconomic History Marital status: Spouse name: Not on file Number of children: Not on file Years of education: Not on file Highest education level: Not on file Occupational History Not on file Social Needs Financial resource strain: Not on file Food insecurity: Worry: Not on file Inability: Not on file Transportation needs: Medical: Not on file Non-medical: Not on file Tobacco Use Smoking status: Current Every Day Smoker Packs/day: 0.50 Years: 35.00 Pack years: 17.50 Types: Cigarettes Start date: 1986 Smokeless tobacco: Never Used Tobacco comment: "I've tried everything there is" Substance and Sexual Activity Alcohol use: No Alcohol/week: 0.0 standard drinks Drug use: No Sexual activity: Not on file Lifestyle Physical activity: Days per week: Not on file Minutes per session: Not on file Stress: Not on file Relationships Social connections: Talks on phone: Not on file Gets together: Not on file Attends church service: Not on file Active member of club or organization: Not on file Attends meetings of clubs or organizations: Not on file Relationship status: Not on file Intimate partner violence: Fear of current or ex partner: Not on file Emotionally abused: Not on file Physically abused: Not on file Forced sexual activity: Not on file Other Topics Concern Not on file Social History Narrative Lives with adult daughter and grandchild Has AD, MPOA is father [place] Mireles Code status: FULL Plan: Replace VNs Generator with new generator. Reviewed risks and benefits with yaquelin oliveira. VNS Generator Change today. Santos Bhatti MD, FAANS Stereotactic & Functional Neurosurgery | Epilepsy Surgery [facility] documented in this encounter Nursing Notes * Naima Castillo RN - 08/03/2019 1:55 PM CDT Patient up in for awhile waiting for father. Iv dcd. No change in left axilla . Slight drainage. No change in Breathe sounds. Voided. * Naima Castillo RN - 08/03/2019 12:06 PM CDT Assumed care of patient. documented in this encounter Miscellaneous Notes * Operative Note - Santos Bhatti MD - 08/03/2019 5:45 PM CDT Name: Summer Cullen Date: 08/03/19 CSN: [id number] Title of Operation: 1. Replacement of VNS neurostimulator generator. 2. Intraoperative electrical analysis of venous system for check of system int egrity and lead impedance. Diagnosis: Seizure Disorder Operative details: This patient is a 49 year old woman who presents with an end-of-life VNS generat or. The patient was taken to the operating room where the patient was positione d supine under general anesthesia. A timeout procedure was performed and the pa tient was prepped and draped using sterile technique. The patient was also give n a dose of antibiotics prior to the start of the case. The operation commenced by making an incision over the left anterior chest. I u tilized the same surgical scar from the previous surgery. The incision was hernandez ied down to the level of the generator which was then visualized and externalize d. The old generator was removed and a new Model 1000 generator was brought onto e [facility] and connected to the single electrode using the accompanying screwdriver . The generator was then placed into the soft tissue pocket and secured using a 2-0 silk suture. Intraoperative electrical analysis was then performed and the lead impedance was found to be within normal limits for this case. The deep tissues were closed using 2-0 Vicryl suture. The skin was closed with a rapidly dissolving suture. Estimated blood loss: 2 cc. There were no intraoperative complications. The patient was taken to the postan esthesia care unit for further recovery. Santos Bhatti MD, FAANS Stereotactic & Functional Neurosurgery | Epilepsy Surgery [facility] documented in this encounter Plan of Treatment Care Team Description Date Type Specialty Hortencia Stewart, LANDSCAPE DRAFTER [address] [address] [phone] 03/31/2020 Office Visit Neurology Order Schedule Name Type Priority Associated Diag noses Ordered: 08/06/2019 PACEMAKER OUTSIDE RECORD Outpatient Cardiology Orderables documented as of this encounter Procedures Comments Procedure Name Priority Date/Time Associated Diag nosis REPLACEMENT, GENERATOR, 08/03/2019 End Of Servic e Vagus VAGUS NERVE 10:19 AM CDT nerve Stimulator NEUROSTIMULATOR Generator, Seizure Disorder URINE TEST Routine 08/03/2019 9:03 AM CDT documented in this encounter Results * Urine Test (08/03/2019 9:03 AM CDT) UCG Urine Negative Negative [facility] Specimen Performing Organization Address City/State/Zipcode Ph one Number [address] [address] LABORATORIES documented in this encounter Visit Diagnoses Not on filedocumented in this encounter Administered Medications Action Date Dose Rate Site Medication Order MAR Action albuterol (ACCUNEB) 2.5 mg/3 mL (0.083 %) nebulizer solution 2.5 mg 2.5 mg, Nebulization, Every 4 hours PRN , wheezing, Starting Tue08/03/19 at 1102, PACU (only) 08/03/2019 10:49 AM CDT 1,000 mL Operativ e Site bacitracin 50,000 Units in sodium Given chloride irrigation (NS) 0.9 % 1,000 mL As needed, Starting Tue08/03/19 at 1049, Intra-op 08/03/2019 10:50 AM CDT 1 application Operativ e Site bacitracin-polymyxin b (POLYSPORIN) Given 500-10,000 unit/gram ointment As needed, Starting Tue08/03/19 at 1050, Intra-op 08/03/2019 10:52 AM CDT 20 mL Operativ e Site Bupivacaine-EPINEPHrine (pf) Given (MARCAINE-PF w/EPI) 0.5 %-1:200,000 30 mL, lidocaine (XYLOCAINE) 10 mg/mL (1 % ) 30 mL OR injection As needed, Starting Tue08/03/19 at 1052, Intra-op 08/03/2019 12:13 PM CDT 25 mcg fentaNYL (SUBLIMAZE) injection 25-50 mcg Given 25-50 mcg, Intravenous, Every 5 min PRN , pain, Starting Tue08/03/19 at 1102, PACU (only), Give only if RR is greater than 8 breaths/min. Maximum of 200 mcg in 2 hours., 25 mcg Given 08/03/2019 11:51 AM CDT 08/03/2019 11:39 AM CDT 3 mL ipratropium-albuterol (DUO-NEB) 0.5-3 Given mg/3 mL nebulizer solution 3 mL 3 mL, Inhalation, Once, Tue08/03/19 at 1200, For 1 dose, PACU (only) 08/03/2019 9:01 AM CDT lactated ringers infusion New Bag 50 mL/hr, Intravenous, Continuous, Starting 08/03/19 at 0915, For 48 hours, Pre-op metoclopramide (REGLAN) injection 5-10 mg 5-10 mg, Intravenous, Every 6 hours PRN , nausea/vomiting (2nd line), Starting Fr i 08/03/19 at 1102, PACU (only), May repeat 5 mg dose x 1 after 10 minutes if first dose ineffective. Do not exceed a total dose of 10 mg within a 6 hour period., metoclopramide (REGLAN) injection 5-10 mg 5-10 mg, Intramuscular, Every 6 hours PRN, nausea/vomiting (2nd line), Starting 08/03/19 at 1102, PACU (only), Administer if patient does not have IV access. May repeat 5 mg dose x 1 after 30 minutes if first dose ineffective. Do not exceed a total dose of 10 mg within a 6 hour period., naloxone (NARCAN) injection 0.08 mg 0.08 mg, Intravenous, See admin instructions, Starting 08/03/19 at 1102, PACU (only), FOR RESPIRATORY RATE < 9/MIN: dilute 1 mL (0.4 mg) naloxone with 9 mL NS (total 10 mL) to make a 0.04 mg/mL dilution. Give 2 mL (0.08 mg ) of dilution every 2 minutes until respiratory rate is greater than 12/minute and/or drowsiness abates. STO P INFUSION. Caution: patient may experience a relapse of sedation within 1 to 2 hours. Call anesthesia and primary care physician STAT. Initiate Rapid Response Team The patient may experience relapse within 1 to 2 hours. IF PATIENT IS APNEIC: give naloxone 1 m L (0.4 mg) every 2 minutes until respiratory rate is greater than 12/minute and initiate Rapid Reponse Team. Place oxygen face mask, FiO2 100 % STAT if naloxone is administered., ondansetron (ZOFRAN) injection 4 mg 4 mg, Intravenous, Every 6 hours PRN, nausea/vomiting (3rd line), Starting Fr i 08/03/19 at 1102, PACU (only) prochlorperazine (COMPAZINE) injection 5-10 mg 5-10 mg, Intravenous, Every 4 hours PRN , nausea/vomiting (1st line), Starting Fr i 9/6/19 at 1102, PACU (only), May repeat 5 mg dose x 1 after 30 minutes if first dose ineffective. Do not exceed a total dose of 40 mg within a 24 hour period. Rate of administration should not excee d 5 mg/minute., prochlorperazine (COMPAZINE) injection 5-10 mg 5-10 mg, Intramuscular, Every 4 hours PRN, nausea/vomiting (1st line), Starting 08/03/19 at 1102, PACU (only), Administer if patient does not have IV access. May repeat 5 mg dose x 1 after 60 minutes if first dose ineffective. Do not exceed a total dose of 40 mg within a 24 hour period., prochlorperazine (COMPAZINE) suppositor y 25 mg 25 mg, Rectal, Every 12 hours PRN, nausea/vomiting (1st line), Starting Fr i 08/03/19 at 1102, PACU (only), Administer if patient does not have IV access and refuses IM injection., 08/03/2019 10:49 AM CDT 10 mL Operativ e Site sodium chloride (pf) (NS) 0.9 % Given injection As needed, Starting 08/03/19 at 1049, Intra-op documented in this encounter
--- OUTSIDE RECORDS SUMMARY | 2020-02-11 03:08 | XMS REPORT | Encounter Summary ---
Author Author [facility] Address Unknown Phone Unavailable Care Team Providers Care Brand Representative Name Role Phone EldonFreedom correa PCP Reason for Visit * Reason Comments Follow-up Encounter Details Care Team Description Date Type Department Brook Aragon PA-C [address] [place], [place] [id number] Battery end of life of vagus nerve stimu lator; Seizures (HCC) 08/24/2019 Office Visit [facility] Neurol ogical & Spine Surgery [address] [place], [place] [id number] Social History Date Tobacco Use Types Packs/Day [...] Signs Reading Time Taken Comments Vital Sign 121/75 08/24/2019 11:01 AM CDT Blood Pressure 92 08/24/2019 11:01 AM CDT Pulse - - Temperature - - Respiratory Rate - - Oxygen Saturation - - Inhaled Oxygen Concentration 91.1 kg (200 lb 12.8 oz) 08/24/2019 11:01 AM CDT Weight 160 cm (5' 3") 08/24/2019 11:01 AM CDT Height 35.57 08/24/2019 11:01 AM CDT Body Mass Index documented in this encounter Progress Notes * Brook Aragon PA-C - 08/24/2019 11:00 AM CDT Neurologic Surgery Return Patient Note Patient ID: Summer Cullen is a 49 y.o. female. Patient Summary: 49-year-old woman with history of refractory epilepsy. Her vag us nerve stimulator was interrogated in office 03/12/2019 by Sarai Stewart APRN, neurology, and found to be near end-of-life. Previous generator replacement was conducted approximately [address] Vivar. She was seen in NS clinic f or VNS replacement which was performed by Dr. Bhatti on 08/03/19. Intraoperati ve course was uncomplicated. Patient discharged home same day. Subjective: Patient presents to clinic for wound check s/p VNS generator replacement. She re ports she initially had some left shoulder soreness however this has resolved. S he reports no seizures to date. She has follow-up scheduled with Neurology . She denies recent fevers, HAs, acute focal weakness and bowel/bladder change s. No new imaging PHQ-9 PHQ-9: Over the last 2 weeks, how often have you been bothered by any of the following problems? No data recorded Review of Systems Constitutional: (-) fever, (-) change of appetite, (-) fatigue CV: (-) chest pain GI: (-) bloody/tarry stools, (-) abdominal pain, (-) weight loss, (-) diarrhea, (-) weight gain, (-) constipation : (-) difficulty urinating ENDO: (-) excessive hunger/thirst, (-) loss of libido, (-) spontaneous nipple di scharge PSYCH: (-) depression, (-) memory problems HEM: (-) easy bruising, (-) easy bleeding HEENT: (-) visual changes, (-) seasonal allergies SKIN: (-) rash/ skin condition PULM: (-) SOB MUSCULOSKELETAL: (-) muscle aches or pain Objective: BP 121/75 (BP Location: Right arm, Patient Position: Sitting) | Pulse 92 | Ht 1.6 m (5' 3") | Wt 91.1 kg (200 lb 12.8 oz) | BMI 35.57 kg/m Physical Exam General: Well-appearing, well-groomed. No acute distress Neuro: Alert and oriented to self place and time. Face symmetric. Extraocular movements intact. Speech dysarthric Bilateral upper extremity strength 5 out of 5 Bilateral lateral lower extremity strength 5 out of 5 No Ford's or clonus Gait normal Wound: Mild edema at incision site. Well healed w/o signs of infection. Assessment/Plan: 49-year-old female with history of refractory epilepsy status post VNS system wi th replacements (01/2016 and 07/2019). Patient presents to clinic for 2-week post op wound check. She is doing well. She reports no seizures today. Patient has follow-up with neurology on 10/01/2019 with Sarai Stewart APRN. At this time, p sue does not require any additional follow-up. Advised patient to call if sh e experiences signs of wound infection. EZRA Chavez PA-C [address], [address] [place] [address] P: [phone] documented in this encounter Plan of Treatment Care Team Description Date Type Specialty Hortencia Stewart APRN [address] [address] [phone] 03/31/2020 Office Visit Neurology documented as of this encounter Visit Diagnoses Diagnosis Battery end of life of vagus nerve stim ulator Seizures (HCC) Other convulsions documented in this encounter
--- OUTSIDE RECORDS SUMMARY | 2020-02-11 03:08 | XMS REPORT | Encounter Summary ---
Author Author [facility] Organization [facility] Address Unknown Phone Unavailable Care Team Providers Care Experimental Worker Name Role Phone EldonFreedom correa PCP Reason for Referral * Diagnostic Lab (Routine) Referred By Contact Referred To Contact Status Reason Specialty Diagnoses / Procedures Hortencia Stewart APRN [address] [address] [facility] Neuro[facility] [address] [place] [id number] Pending Review Neurology Diagnoses Partial epilepsy with impairment of consciousness, intractable (HCC) P rocedures EEG video monitoring Encounter Details Care Team Description Date Type Department Hortencia Stewart APRN [address] [address] [phone] Partial epilepsy with impairment of cons ciousness, intractable (HCC) (Primary Dx) 11/12/2019 Orders Only [facility] Neu[facility] [address] [place] [address] Social History Date Tobacco Use Types Packs/Day [...] history available. documented as of this encounter Progress Notes * Hortencia Stewart APRN - 11/12/2019 4:05 PM FIXTURE BUILDER We have been discussing with Summer that after Dr. Vargas arrives and we have additional technology available to help us localize her seizure focus further, silke schafer would again recommend she undergo inpatient video EEG monitoring as part of a presurgical evaluation for epilepsy surgery. She is interested in pursuing this so we will plan to admit her during the month of November 2023 7 to 10 days of i npatient video EEG monitoring. She indicates that previously her seizures usual ly breakthrough pretty quickly after her VNS is turned off. URE BUILDER documented in this encounter Plan of Treatment Care Team Description Date Type Specialty Hortencia Stewart APRN [address] [address] [phone] 03/31/2020 Office Visit Neurology Date/Time Name Type Priority Associated Diag noses 12/11/2019 8:30 AM FIXTURE BUILDER EEG video monitoring Neurology Routine Partial e pilepsy with impairment of consciousness, intractable (HCC) Order Schedule Name Type Priority Associated Diag noses 1 Occurrences starting 11/12/2019 until 11/12/2020 EEG video monitoring Neurology Routine Partial e pilepsy with impairment of consciousness, intractable (HCC) documented as of this encounter Visit Diagnoses Diagnosis Partial epilepsy with impairment of con sciousness, intractable (HCC) Localization-related (focal) (partial) epilepsy and epileptic syndromes with complex partial seizures, with intractable epilepsy documented in this encounter
--- OUTSIDE RECORDS SUMMARY | 2020-02-11 03:08 | XMS REPORT | Encounter Summary ---
Author Author [facility] Organization [facility] Address Unknown Phone Unavailable Care Team Providers Care Records Management Engineer Name Role Phone EldonFreedom correa PCP Reason for Visit * Reason Comments partial epilepsy last office visit: 06/29/19; 3mo f/u Encounter Details Care Team Description Date Type Department Hortencia Stewart, BUILDING CLEANER [address] [id number] Partial epilepsy with impairment of cons ciousness, intractable (HCC) 10/01/2019 Office Visit [facility] Neurol ogy [address] [place] [address] Social History Date Tobacco Use Types Packs/Day [...] Signs Reading Time Taken Comments Vital Sign 116/74 10/01/2019 10:14 AM TECHNICAL ACCOUNT REPRESENTATIVE Blood Pressure 102 10/01/2019 10:14 AM TECHNICAL ACCOUNT REPRESENTATIVE SpO2: 99% Pulse - - Temperature - - Respiratory Rate - - Oxygen Saturation - - Inhaled Oxygen Concentration 88.7 kg (195 lb 9.6 oz) 10/01/2019 10:14 AM TECHNICAL ACCOUNT REPRESENTATIVE Weight 160 cm (5' 3") 10/01/2019 10:14 AM TECHNICAL ACCOUNT REPRESENTATIVE Height 34.65 10/01/2019 10:14 AM TECHNICAL ACCOUNT REPRESENTATIVE Body Mass Index documented in this encounter Progress Notes * Hortencia Stewart, BUILDING CLEANER - 10/01/2019 11:00 AM TECHNICAL ACCOUNT REPRESENTATIVE Patient Name: Summer Cullen Age: 49 y.o. Sex: female CC: Seizures HPI: Summer Cullen is a 49 y.o.-year-old, right-handed female seen today in our [facility] [place] clinic for follow-up regarding her history of [...] prior occasions with video EEG monitoring, at [facility] in 1996, [facility] in 2010 and at [facility] by Dr. Oumar Babcock in 2015. A clear focus of seizure onset could [...] but no clear lateralized pattern of dysfunction. Since her last visit with sc June 2019, she estimates she has had a couple of seizure episodes, most recently 1 week ago when she had 4 seizures in one day as she felt she was coming down with a cold. She feels like the seizures are sig nificantly milder, shorter and less frequent than her seizures prior to Briviact being added June 2019. She also had her VNS replaced August 03, 2019 and is tolerating this well. She is tolerating the addition of Briviact well and feels like this is working dramatically better than any other seizure medicines been added so far. She has felt like her seizures are generally triggered by a m igraine or an illness coming on. She follows in our migraine clinic and nortrip tyline has been added to her regimen with some benefit. She has tolerated the i ncrease in her Banzel to 1600 mg twice daily well and tolerating the increased V NS settings without any discomfort. She has not been injured with any of her se izures; she notes that these can happen with waking but they may also happen whe n she is watching TV or reading. At these times she will feel mildly confused a nd have some difficulty talking. She continues tolerating her antiseizure medic ations at the current doses. There are no new neurological symptoms. She continues [...] it was discontinued. She has not tried zonisamide, Briviact or Onfi. REVIEW OF SYSTEMS: A 14 system review of systems was negative except for where noted in the history of present illness above. PAST MEDICAL HISTORY: Past Medical History: Diagnosis Date Allergic rhinitis seasonal allergies Anxiety Arrhythmia tachycardia Arthritis Back pain Chronic constipation COPD (chronic obstructive pulmonary disease) (HCC) Depression Difficulty falling asleep at night until early years teacher hours Difficulty staying asleep Exercise tolerance finding limited by leg pain--if walking a long way will use electric cart in grocery st ore Fractures from seizures--leg and ankle fractures in past Head injury concussions from seizures--since age 21 HL (hearing loss) left ear [place]-no hearing aides Kidney stones Migraine Obesity JOSE [...] PROGRAMING; [place] geon: Sj Vivar MD; Location: [facility] Main OR; Service: ENT; Laterality : N/A; REPLACEMENT, GENERATOR, VAGUS NERVE NEUROSTIMULATOR Left 08/03/2019 Procedure: REPLACEMENT, GENERATOR, VAGUS NERVE NEUROSTIMULATOR; Surgeon: Yi Bhatti MD; Location: [facility] OR; Service: Neurosurgery; Laterality: Le ft; TUBAL [...] file Gets together: Not on file Attends uatsdin service: Not on file Active member of [...] 3 (three) times a da y. brivaracetam (BRIVIACT) 50 mg tablet Take 2 tablets (100 mg total) by mouth 2 (two) times a day. 120 tablet 5 budesonide-formoterol (SYMBICORT) 160-4.5 mcg/actuation inhaler Inhale [...] Use 3.5 L in each nostril nightly. phentermine (ADIPEX-P) 37.5 mg tablet Take 37.5 mg by mouth every morning. 0 promethazine (PHENERGAN) 25 MG tablet TK 1 T PO Q 6 H PRF NAUSEA OR VOM 1 rizatriptan (MAXALT) 10 MG tablet Take 1 [...] Take 225 mg by mouth every morning. carvedilol (COREG) 12.5 MG tablet Take 12.5 mg by mouth 3 (three) times a da y. No current facility-administered medications for this visit. ALLERGIES: Allergies Allergen Reactions Aspirin Other (See Comments) Interacts with epilepsy meds Tylenol [Acetaminophen] Swelling Tylenol 3; Lips swell and blister Examination: Vitals: 10/01/19 1014 BP: 116/74 BP Location: Left arm Patient position: Sitting Pulse: (!) 102 Weight: 88.7 kg (195 lb 9.6 oz) Height: 1.6 m (5' 3") Body mass index is 34.65 kg/m. Ms. Cullen is awake, alert, and interactive on examination. Her countenance is much brighter and cheerful today. Her mental status is intact to conversation. Her speech is clear, and her language shows no deficits of comprehension. Her pupils are equal, round, and reactive to light. Her extraocular eye movements are full in all directions without nystagmus. Her face is symmetric at rest and with activation. Her hearing is intact to conversation. Her palate elevates sy mmetrically. Her tongue protrudes in the midline. Her muscle bulk and tone are normal throughout. Her strength is 5/5 in proximal and distal muscle groups in all four limbs. Her sensation is intact to light touch throughout. Finger to nose and rapid alternating movements are intact bilaterally. Her gait was shira l and narrow based with an intact tandem gait. She has mildly labored, audibl e breathing at baseline. Heart sounds are regular. Extremities are warm withou t edema. I interrogated and reprogrammed her vagal nerve stimulator. The stimulation int ensity was 2.75 mA. Frequency of 20 Hz (decreased to 15) and a pulse width of 130 s. On time is 30 seconds with an off time of 1.1 minutes. Magnet current strength was 3.00 mA. Magnet on time of 60 seconds and a magnet pulse width of 130 s. She now has tachycardia detection. The threshold was 40% (averaging only one auto-stim trigger per day - decreased her threshold to 30%.) System di agnostics reveal no problems and the Sentiva M1000 was place Aug 03, 2019. Prev iously her generator was implanted on 02/25/2016. There is 75-100 % of the batte ry service remaining. IMPRESSION/PLAN: Summary: Summer Cullen is a 49 y.o.-year-old, right-handed female with refractory epil epsy of cryptogenic cause. Inpatient video EEG monitoring on 3 past occasions a [facility] 1996, [facility] in 2010, and [facility] in May 6 did not clarify her localization and has [...] clear lateralized pattern o f dysfunction. 1) Partial onset Intractable epilepsy vs. Primary Generalized epilepsy: She fee ls like the addition of Briviact to her regimen has made the most dramatic diffe rence in her seizure control of any of the medications added recently. Since eugene schafer is continued to have some seizures breakthrough offered her the option of incr easing this further and she would like to do this so given her instructions for increasing from her current dose of 50 mg twice a day to 75 mg twice daily for a week then 100 mg twice daily. I sent a new prescription with refills. The addition of Banzel to her regimen previously made some improvement in her se izure frequency and higher doses seemed to have made her seizures milder and of shorter duration. For now she will continue Banzel 1600 mg BID. I sent a new p rescription with refills. If she has side effects with the higher dose of Brivi act, I would favor decreasing Banzel to see if she can tolerate the higher dose of Briviact because she feels like the Briviact is made a more dramatic impact o n her seizure control than higher doses of Banzel did. Other considerations for alternating antiseizure medications were zonisamide or Onfi. She has a history of kidney stones that were previously attributed to topiramate and since then t his might carries the same potential risk of avoided that. She takes alprazolam on schedule and as needed so combining benzodiazepines as risky and therefore O nfi has not been chosen. She will continue her lamotrigine 200 mg 3 times daily and Banzel 1600 mg BID. I sent prescription refills. Her VNS incision is well-healed and she is tolerating her new device well. I di d change settings as noted above. She stopped taking Chantix since this increased [...] she understands that state driving laws in [place] and [place] re strict driving for 6 months following an episode of altered awareness. Addition ally, she understands she should exercise caution and avoid situations that coul d be dangerous if a seizure were to occur such as swimming without a trained lif eguard present, unsupervised bathing in a bathtub, climbing tall heights or arturo ers, operating dangerous machinery or exposure to open heat sources. Resective surgery is still the best option for fully controlling her seizures bu t she has not wanted to go to [facility] for this. At our recent epilepsy surg ica case conferences we have briefly discussed her case in light of additional neuroimaging with stereo-EEG and robotic neurosurgery capabilities we anticipate having available in our epilepsy center at some point in the near future, kylah ruiz in the next year. We discussed this again today and she is again interested in pursuing resect of surgery if this is an option for her locally. We will re present her case at an upcoming surgery conference to see if additional testing, possibly with stereo EEG, may help us localize a potentially resectable seizure focus. 2) Migraines - She continues nortriptyline and [...] discuss her case at our epilepsy [facility] conference, I will give her a call at home to discuss our epilepsy team rec ommendations. Her home #[phone]. She gives her permission to leave [facility] regarding her recommendations on her voicemail. Over 50% of this 35 minute visit was spent counseling the patient and her family , coordinating care and discussing the treatment plan. NICAL ACCOUNT REPRESENTATIVE documented in this encounter Plan of Treatment Care Team Description Date Type Specialty Hortencia Stewart APRN [address] [facility] [address] [place] [address] [phone] 03/31/2020 Office Visit Neurology documented as of this encounter Visit Diagnoses Diagnosis Partial epilepsy with impairment of con sciousness, intractable (HCC) Localization-related (focal) (partial) epilepsy and epileptic syndromes with complex partial seizures, with intractable epilepsy documented in this encounter
--- OUTSIDE RECORDS SUMMARY | 2020-02-11 03:08 | XMS REPORT | Encounter Summary ---
Author Author [facility] Organization [facility] Address Unknown Phone Unavailable Care Team Providers Care Medical/Surgery Registered Nurse Name Role Phone EldonFreedom correa PCP Reason for Visit * Auth/Cert (Routine) Referred By Contact Referred To Contact Status Reason Specialty Diagnoses / Procedures Santos Bhatti MD [address] [address] New Request Diagnoses Encounter for adjustment and management of neurostimulator Localization-relat ed (focal) (partial) symptomatic epilepsy and epileptic syndromes with complex partial seizures, intractable, without status epilepticus P rocedures Case request operating room: REPLACEMENT, GENERATOR, VAGUS NERVE NEUROSTIMULATOR NH IMP STIM,CRANIAL,SUBQ, >1 ARRAY Encounter Details Care Team Description Date Type Department Naima Garsia MD [address] [place], [place] [id number] Surya Liao MD [address] [place], [place] [id number] 08/03/2019 Anesthesia [facility] Hospit [facility] Event [address] [place], [place] [id number] Anesthesia Record Responsible Anesthesiologist Anesthesia Start Time Anesthesi a Stop Time Procedure Name Naima Garsia MD 08/03/19 1019 08/03/19 1139 REPLACEMENT, GENERATOR, VAGUS NERVE NEUROSTIMULATOR (Left ) Date Time Event Comment 957 AN Equip Check 2018 1007 1007 Anesthesia Initial Contact 1019 In room 1019 An Start 1019 An Start Data 1019 Pt eval immediately prior to anesthesia 1024 Preoxygenated Prior to Induction 1025 An Induction 1029 An Intubation 1032 Anesthesia Ready 1100 Procedure start - Primary Case 1121 Procedure stop - Primary case 1121 Spontaneous respirations 1121 Adequate Tidal Volume 1122 FiO2 to 100% Prior to Suctioning 1122 Suction 1131 An Extubation 1131 Oxygen per face mask 1131 an stop data 1131 Transported with O2 1131 Out of Room 1139 Handoff I completed my SBAR handoff to the receiving nurse in the PACU/ICU/OB Patient and PACU/ICU/OB nurse identifie d Discussed patient medical history Discussed procedure Reviewed intraopera tive anesthetic management and issues/concerns Discussed expectation f or early post-procedure period Questions from PACU/ICU/OB team address ed 1139 An Stop Meds Name Total lidocaine 2% (PF) 100 mg propofol 10mg/mL 200 mg propofol infusion 10mg/mL 327.43 mg succinylcholine (ANECTINE) 20 mg/mL 120 mg injection fentaNYL (SUBLIMAZE) injection 50 mcg/mL 100 mcg phenylepherine 0.1mg/mL 200 mcg ondansetron 2mg/mL 4 mg vancomycin (VANCOCIN) 1,250 mg in sodium 1,250 mg chloride 0.9 % (NS) 250 mL IVPB lactated ringers infusion 400 mL * Name Cell Saver Blood Intake O2 N2O Air EtSEVO EtISO EtDES EtN2O * No blood administrations on file. Removal Type Details Placement Wound 08/03/19; 1105; Incision; Chest; Left; 08/03/19 1105 by Polysporin, telfa, mastisol, tegaderm Sagrario Calvert RN 12/12/19 0000 by Shawnee Elizondo RN Peripheral Date: 08/03/19; Time: 914; Size 08/0315 by Melanie IV (gauge): 20 G; Orientation: Left; L Is ELVIRA olivas Location: Hand; Site Prep: Chlorhexidine; Insertion Attempts: 1; Inserted By: ELVIRA Asher; Removal Date: 12/12/19 08/03/19 1131 by Romero Coreas DO Non-Surgic Date: 08/03/19; Time: 102; Able to mas k 08/03/19 1029 by Romero colón Airway ventilate prior to placement: Yes; Andrew sshart, DO Placed By: Resident; Site: Oral; Device : ETT - Cuffed; Size: 7; Units: Millimeters; Method: Laryngoscope, Standard Stylet; Blade Type: MAC; Blade Size: 3; Attempts: Other; If multiple attempts taken please describe: Initially attempted LMA that was unsuccessful due to poor seal and desat . Switched to ETT with good result; Grade View: II; Misc: External Laryngeal Manipulation; Airway Observations: redundant tissue, oropharynx clear, cords visualized, arytenoids visualized ; Cuff Volume: 8; Placement Verified By: Auscultation, Capnometry; Secured At (cm): 21; Measured From: Gums; Removal Date: 08/03/19; Removal Time: 1130 documented in this encounter Social History Date Tobacco Use Types Packs/Day [...] as of this encounter Miscellaneous Notes * Anesthesia Postprocedure Evaluation - Naima Garsia MD - 08/03/2019 1:14 PM CDT Anesthesia Post Evaluation Procedure(s):REPLACEMENT, GENERATOR, VAGUS NERVE NEUROSTIMULATOR Surgeon: Santos Bhatti MD Patient Evaluated in: PACU Patient Participation: complete - patient participated Level of Consciousness: awake and alert , with adequate pain management. Airway Patency: patent Respiratory Status: spontaneous ventilation Cardiovascular Status: hemodynamically stable Postoperative Hydration: euvolemic Postop Nausea/Vomiting: no PONV in PACU Anesthetic Complications: No Appropriate for discharge from anesthesia care, no apparent anesthesia related c omplication ANE Post Eval Vitals Most Recent Value BP 115/73 filed at 08/03/2019 1236 Pulse 101 filed at 08/03/2019 1236 Temp 36.7 C (98.1 F) filed at 08/03/2019 1138 Resp 22 filed at 08/03/2019 1236 SpO2 96 % filed at 08/03/2019 1236 * Anesthesia Preprocedure Evaluation - Romero Coreas DO - 08/03/2019 9:51 AM CDT Anesthesia Evaluation Patient summary and ECG reviewed No history of anesthetic complications History of tobacco use. Current everyday smoker. Airway Mallampati: III TM distance: >3 FB Neck ROM: full Adequate mouth opening No prominent facial hair Dental Dental Status:upper dentures and lower dentures Pulmonary - negative ROS (+) COPD, sleep apnea, ROS comment: Uses oxygen at night PE comment: Loud breathing sounds (without stethoscope) Cardiovascular - negati ve ROS and normal exam Heart sounds: normal (+) MARQUEZ, ECG reviewed Rhythm: regular Rate: normal ROS comment: Tachycardia Neuro/Psych (+) seizures, headaches, anxiety, GI/Hepatic/Renal - negative ROS (+) renal disease, Endo/Other - negative ROS Abdominal (+) obese, Abdomen: soft. Obstetrics HEENT Negative HEENT ROS Musculoskeletal Negative musculoskeletal ROS Anesthesia Plan ASA 3 Type: general () Plan to include: LMA, IV induction, spontaneous ventilation and propofol infusio n Patient was taking beta blockers as a home medication. Beta caitie will be nii ntained perioperatively. Anesthetic plan and risks discussed with patient. Plan discussed with resident. Post-operative analgesia: routine analgesia and antiemetics Recovery plan: PACU Risk factors for PONV: female PONV risk level: low Notes 49F, history seizures, COPD (O2 at night), JOSE ALBERTO (no CPAP), scheduled for vagus ne rve stimulator generator change. Plan for general with LMA and propofol infusion. Romero Coreas DO Anesthesia CA1 documented in this encounter Plan of Treatment Care Team Description Date Type Specialty Hortencia Stewart, FIBER GLASS WORKER [address] [address] [phone] 03/31/2020 Office Visit Neurology documented as of this encounter Visit Diagnoses Not on filedocumented in this encounter Administered Medications Action Date Dose Rate Site Medication Order MAR Action 08/03/2019 10:42 AM CDT 50 mcg fentaNYL (SUBLIMAZE) injection Given As needed, Starting Tue08/03/19 at 1042, Anesthesia Intra-op 50 mcg Given 08/03/2019 10:32 AM CDT 08/03/2019 9:01 AM CDT lactated ringers infusion New Bag 50 mL/hr, Intravenous, Continuous, Starting Tue08/03/19 at 0915, For 48 hours, Pre-op 08/03/2019 10:25 AM CDT 100 mg lidocaine (pf) (XYLOCAINE-MPF) 20 mg/mL Given (2 %) injection As needed, Starting Tue08/03/19 at 1025, Anesthesia Intra-op 08/03/2019 11:09 AM CDT 4 mg ondansetron (ZOFRAN) injection Given As needed, Starting Tue08/03/19 at 1109, Anesthesia Intra-op 08/03/2019 10:49 AM CDT 100 mcg phenylephrine HCl in 0.9% NaCl Given (NEOSYNEPHRINE) 1 mg/10 mL (100 mcg/mL) injection As needed, Starting Tue08/03/19 at 1046, Anesthesia Intra-op 100 mcg Given 08/03/2019 10:46 AM CDT 08/03/2019 10:59 AM CDT 70 mcg/kg/min 37.88 mL/hr propofol (DIPRIVAN) infusion 10 mg/mL Rate/Dose Continuous PRN, Starting Tue08/03/19 at Change 1027, Anesthesia Intra-op 80 mcg/kg/min 43.3 mL/hr Rate/Dose Change 08/03/2019 10:49 AM CDT 100 mcg/kg/min 54.12 mL/hr New Bag 08/03/2019 10:27 AM CDT 08/03/2019 10:25 AM CDT 200 mg propofol (DIPRIVAN) injection Given As needed, Starting Tue08/03/19 at 1025, Anesthesia Intra-op 08/03/2019 10:27 AM CDT 120 mg succinylcholine (ANECTINE) injection Given As needed, Starting Tue08/03/19 at 1027, Anesthesia Intra-op 08/03/2019 10:32 AM CDT 1,250 mg vancomycin (VANCOCIN) 1,250 mg in sodium New Bag chloride 0.9 % (NS) 250 mL IVPB 1,250 mg (rounded from 1,341 mg = 15 mg/kg 89.4 kg), Intravenous, at 175 mL/hr, 60 min pre-op, Indications: PERIOPERATIVE, Starting Tue08/03/19 at 0856, For 1 dose , Pre-op, Administer within 60 minutes of skin incision. REFRIGERATE, SCIP Justification for use: MRSA colonizatio n or infection, history of MRSA, or positive MRSA screen documented in this encounter
--- OUTSIDE RECORDS SUMMARY | 2020-02-11 03:09 | XMS REPORT | Encounter Summary ---
Author Author [facility] Organization [facility] Address Unknown Phone Unavailable Care Team Providers Care Film Replacement Orderer Name Role Phone EldonFreedom correa PCP Reason for Referral * Consultation (Routine) Referred By Contact Referred To Contact Status Reason Specialty Diagnoses / Procedures Hortencia Stewart, CARRIE [address] [facility] [address] [place] [address] Santos Bhatti MD [address] [facility] [address] [place] [address] Closed Specialty Services Neurosurgery Diagnoses Required Partial epilepsy with impairment of consciousness, intractable (HCC) Reason for Visit * Reason Comments Partial Epilepsy last office visit: 04/03/19; 3mo follow up Encounter Details Care Team Description Date Type Department Hortencia Stewart, CARRIE [address] [facility] [address] [place] [address] [phone] Partial epilepsy with impairment of cons ciousness, intractable (HCC) 06/29/2019 Office Visit [facility] Neurol [facility] [address] [facility] [address] [place] [address] Social History Date Tobacco Use Types Packs/Day Years Used Started: 1986 Current Every Day Smoker Cigarettes 0.75 28 Smokeless Tobacco: Never Used Comments: "I've tried [...] Signs Reading Time Taken Comments Vital Sign 123/74 06/29/2019 10:19 AM CDT Blood Pressure 106 06/29/2019 10:19 AM CDT Pulse - - Temperature - - Respiratory Rate - - Oxygen Saturation - - Inhaled Oxygen Concentration 91 kg (200 lb 9.6 oz) 06/29/2019 10:19 AM CDT Weight 160 cm (5' 3") 06/29/2019 10:19 AM CDT Height 35.53 06/29/2019 10:19 AM CDT Body Mass Index documented in this encounter Progress Notes * Hortencia Stewart, CARRIE - 06/29/2019 10:30 AM CDT Patient Name: Summer Cullen Age: 49 y.o. Sex: female CC: Seizures HPI: Summer Cullen is a 49 y.o.-year-old, right-handed female seen today in our [facility] clinic for follow-up regarding her [...] prior occasions with video EEG monitoring, at [facility] in 1996, [facility] in 2010 and at [facility] by Dr. Oumar Babcock in 2016. A [...] of dysfunction. Since her last visit with me March 12, 2019, she estimates she has had 2-3 seizu res a month, most recently 3 days ago. She has had a sinus infection currently treated with Cefdinir so she has had a few more seizures than usual. Over, she does feel like these seizures have been milder and of shorter duration than her prior seizures and with quicker recovery but the frequency is generally stable. She has felt like her seizures are generally triggered by a migraine. She has seen our migraine clinic and nortriptyline has been added to her regimen with so me benefit. She has tolerated the increase in her Banzel to 1600 mg twice daily well and tolerating the increased VNS settings without any discomfort. She has not been injured with any of her seizures; she notes that these can happen with waking but they may also happen when she is watching TV or reading. At these t imes she will feel mildly confused and have some difficulty talking. She contin ues tolerating her antiseizure medications at the current doses. There are no n ew neurological symptoms. She continues wearing her BiPAP [...] Briviact or Onfi. REVIEW OF SYSTEMS: A 12 system review of systems was negative except for where noted in the history of present illness above. 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 Difficulty staying asleep Exercise tolerance finding limited by leg pain--if walking a long way will use electric cart in grocery st ore Fractures from seizures--leg and ankle fractures in past Head injury concussions from seizures--since age 21 HL (hearing loss) left ear [place]-no hearing aides Kidney stones Migraine JOSE ALBERTO on CPAP Osteoarthritis mainly ankles and knees and wrists and back Osteopenia Rapid heart rate reason for coreg Seizures (HCC) Sinusitis possibly--history of sinus infections Visual impairment wears glasses PAST SURGICAL HISTORY: [...] PROGRAMING; Reyna geon: Sj Vivar MD; Location: [facility] Main OR; Service: ENT; Laterality : N/A; TUBAL LIGATION 1992 FAMILY HISTORY: Family History Problem Relation Age of Onset Hyperlipidemia Mother Migraines Mother Alzheimer's disease Mother Hyperlipidemia Father Diabetes Father Alcohol abuse Father Heart disease Other FAMILY HX Heart [...] Smoking status: Current Every Day Smoker Packs/day: 0.75 Years: 28.00 Pack years: 21.00 Types: Cigarettes Start date: 1986 Smokeless tobacco: [...] file Gets together: Not on file Attends caodaism service: Not on file Active member of [...] Medication Sig Dispense Refill ALBUTEROL INHL Inhale as needed. ALPRAZolam (XANAX) 0.25 MG tablet Take 0.25 mg by mouth 3 (three) times a da y. budesonide-formoterol (SYMBICORT) 160-4.5 mcg/actuation inhaler Inhale 2 puf fs 2 (two) times a day. calcium carbonate-vitamin D3 600 mg(1,500mg) -800 unit Tab Take 1 tablet by mouth 3 (three) times a day. carvedilol (COREG) 6.25 MG tablet Take 12.5 mg by mouth 3 (three) times a da y. cefdinir (OMNICEF) 300 MG capsule Take 300 mg by mouth 2 (two) times a day. 1 diphenhydrAMINE (BENADRYL) 25 mg capsule Take 50 [...] scularly take as directed. Every 6 weeks montelukast (SINGULAIR) 10 mg tablet Take 10 mg by mouth nightly. nortriptyline (PAMELOR) 25 MG capsule Take 3 capsules (75 mg total) by mouth nightly. 90 capsule 5 ondansetron (ZOFRAN) 4 MG tablet Take 4 mg by mouth every 8 (eight) hours as needed for nausea. phentermine (ADIPEX-P) 37.5 mg tablet Take 37.5 [...] (two) times a day. 720 tablet 3 simvastatin (ZOCOR) 20 MG tablet Take 20 mg by mouth nightly. solifenacin (VESICARE) 10 MG tablet Take 5 mg by mouth daily. UNABLE TO FIND daily. CENTRUM ADULTS TAKING 1 TAB DAILY. venlafaxine (EFFEXOR-XR) 150 MG ER 24 hr capsule Take 225 mg by mouth every morning. No current facility-administered medications for this visit. ALLERGIES: Allergies Allergen Reactions Aspirin Other (See Comments) Interacts with epilepsy meds Tylenol [Acetaminophen] Swelling Tylenol 3; Lips swell and blister Examination: Vitals: 06/29/19 1019 BP: 123/74 Pulse: (!) 106 Weight: 91 kg (200 lb 9.6 oz) Height: 1.6 m (5' 3") Body mass index is 35.53 kg/m. Ms. Cullen is awake, alert, and [...] was 2.75 mA. Frequency of 20 Hz and a pulse width of 130 s. On time is 30 seconds with an off time of 1.1 minutes. Magnet current strength was 3.00 mA. Magnet on time of 60 seconds and a magnet pulse width of 130 s. System diagnostics reveal no problems and the Smile M105 generator was implanted on 02/25/2016. There is 11-25% of the service remaining. IMPRESSION/PLAN: Summary: Summer Cullen is a 49 y.o.-year-old, right-handed female with refractory epil epsy of cryptogenic cause. Inpatient video EEG monitoring on 3 past occasions a [facility] 1996, [facility] in 2010, and [facility] in May did not clarify her localization [...] onset Intractable epilepsy vs. Primary Generalized epilepsy: The ad dition of Banzel to her regimen has made some improvement in her seizure frequen cy and higher doses seems to have made her seizures milder and of shorter durati on, though the frequency of 2-4 times per month remains relatively stable. I re commended she continue Banzel 1600 mg BID. Since she continues to have several seizures per month, I would favor adding a third antiseizure medication, possibl y Briviact, zonisamide or Onfi. I sent a new prescription for lamotrigine. She has adequate refills of Banzel. She will continue her lamotrigine 200 mg 3 anita es daily and Banzel 1600 mg BID. She also takes folic acid 1 mg daily. We discu ssed the option of adding a third medicine and our options are limited. She has not tried zonisamide, but attributes kidney stones to topiramate and zonisamide carries the same potential. Onfi would be an option but she already takes alpr azolam on schedule and PRN, so combining benzodiazepines is risky. I have discu ssed her options with Dr. Tsai and we agree that Briviact is a reasonable optio n to try so we will start 50 mg BID. I have discussed this with the patient. W hanh reviewed potential side effects and she knows to watch for these. I have sent a prescription with refills. Her VNS is nearing end of service. In the past this has run down quite quickly and caused her a significant increase in seizures so she would like to proceed w meghan the process of getting this replaced so I have placed a referral to Dr. Daniel Bhatti of neurosurgery to get this replaced. She stopped taking Chantix since this increased [...] she understands that state driving laws in [place] and [place] re strict driving for 6 months following [...] she has not wanted to go to [facility] for this. At our recent epilepsy surg ica case conferences we have briefly discussed her case in light of additional neuroimaging with stereo-EEG and robotic neurosurgery capabilities we anticipate having available in our epilepsy center at some point in the near future, kylah ruiz in the next year. As this plan materializes and shows promise to more defin itively localize the focus of her seizure onset, we will plan to re-present her case at a future epilepsy surgery conference. 2) Migraines - She continues nortriptyline and [...] she should contact our office s ooner. Over 50% of this 35 minute visit was spent counseling the patient and her family , coordinating care and discussing the treatment plan. Time in 1045 Time out 1120 documented in this encounter Plan of Treatment Care Team Description Date Type Specialty Hortencia Stewart APRN [address] [address] [phone] 03/31/2020 Office Visit Neurology Order Schedule Name Type Priority Associated Diag noses 1 Occurrences starting 06/29/2019 until 12/30/2019 Ambulatory referral to Outpatient Routine Partial epilepsy with Neurosurgery Referral impairment of consciousness, intractable (HCC) documented as of this encounter Visit Diagnoses Diagnosis Partial epilepsy with impairment of con sciousness, intractable (HCC) Localization-related (focal) (partial) epilepsy and epileptic syndromes with complex partial seizures, with intractable epilepsy documented in this encounter
--- OUTSIDE RECORDS SUMMARY | 2020-02-11 03:09 | XMS REPORT | Encounter Summary ---
Author Author [facility] Organization [facility] Address Unknown Phone Unavailable Care Team Providers Care Energy Conservation Specialist Name Role Phone EldonFreedom correa PCP Encounter Details Care Team Description Date Type Department Merry Chadwick RN 07/18/2019 Telephone [facility] Neurol ogical & Spine Surgery [address] [facility], [address] [place] [address] Social History Date Tobacco Use Types Packs/Day [...] encounter Miscellaneous Notes * Telephone Encounter - Merry Chadwick RN - 07/19/2019 2:24 PM CDT Attempted to call pt again. RN advised pt that we have received clearance for he r to dc phentermine 2 weeks prior to surgery. Pt verbalized understanding. * Telephone Encounter - Merry Chadwick RN - 07/19/2019 12:03 PM CDT Attempted to call pt again. No answer. Mailbox full so unable to leave vm. Will try again later. * Telephone Encounter - Merry Chadwick RN - 07/19/2019 8:41 AM CDT Documentation received. Called pt to advise that she should stop taking phenterm ine now. No answer., Mailbox full so unable to leave vm. Will try again later. * Telephone Encounter - Merry Chadwick RN - 07/18/2019 2:20 PM CDT Placed call to the office of Dr. Villarreal (PCP) to request clearance for the pt to dc phentermine 2 weeks prior to surgery. Left message for nurse. documented in this encounter Plan of Treatment Care Team Description Date Type Specialty Hortencia Stewart, CONDUIT BENDER [facility] [address] [address] [phone] 03/31/2020 Office Visit Neurology documented as of this encounter Visit Diagnoses Not on filedocumented in this encounter
--- OUTSIDE RECORDS SUMMARY | 2020-02-11 03:09 | XMS REPORT | Encounter Summary ---
Author Author [facility] Organization [facility] Address Unknown Phone Unavailable Care Team Providers Care Contracts Advisor Name Role Phone Freedom Villarreal PCP Reason for Referral * MRI/CAT/PET Scan (Routine) Referred By Contact Referred To Contact Status Reason Specialty Diagnoses / Procedures Hortencia Stewart APRN [address] [address] [facility]ri [address] [place] [id number] Closed Radiology Diagnoses Partial epilepsy with impairment of consciousness, intractable (HCC) Hx of migraines P rocedures MRI Head wo contrast * Consultation (Routine) Referred By Contact Referred To Contact Status Reason Specialty Diagnoses / Procedures Hortencia Stewart APRN [address] [address] Char Valle DO [address] [address] Closed Specialty Services Neurology Diagnoses Required Hx of migraines Reason for Visit * Reason Comments Epilepsy follow up Encounter Details Care Team Description Date Type Department Hortencia Stewart APRN [address] [address] [phone] Hx of migraines (Primary Dx); Partial epilepsy with impairment of consciousness, intractable (HCC); Smoking 03/12/2019 Office Visit [facility] [address] [place] [address] Social History Date Tobacco Use Types Packs/Day [...] Signs Reading Time Taken Comments Vital Sign 116/65 03/12/2019 11:08 AM CDT Blood Pressure 101 03/12/2019 11:08 AM CDT Pulse - - Temperature - - Respiratory Rate - - Oxygen Saturation - - Inhaled Oxygen Concentration 84.5 kg (186 lb 3.2 oz) 03/12/2019 11:08 AM CDT Weight 160 cm (5' 3") 03/12/2019 11:08 AM CDT Height 32.98 03/12/2019 11:08 AM CDT Body Mass Index documented in this encounter Progress Notes * Hortencia Stewart, CARRIE - 03/12/2019 11:00 AM CDT Patient Name: Rajiv Cullen Age: 48 y.o. Sex: female CC: Seizures HPI: Rajiv Cullen is a 48 y.o.-year-old, right-handed female seen today in our [facility] clinic for follow-up regarding her [...] prior occasions with video EEG monitoring, at [facility] in 1996, [facility] in 2010 and at [facility] by Dr. Oumar Babcock in 2016. [...] dysfunction. Since her last visit with me December 11, 2018, she estimates she has had 2-3 sei zures a month. She does feel like a couple of these each month may have been mi lder and shorter duration than her prior seizures and with quicker recovery but the frequency is generally stable. At this point she feels like now her seizure s are generally triggered by a migraine. She has tolerated the increase in her Banzel to 1400 mg twice daily well and tolerating the increased VNS settings wit hout any discomfort. She has not been injured with any of her seizures she note s that these can happen with waking but they may also happen when she is watchin g TV or reading. At these times she will feel mildly confused and have some dif ficulty talking. She continues tolerating her antiseizure medications at the cu rrent doses. There are no new neurological symptoms. [...] it was discontinued. She has not tried zonisamide. REVIEW OF SYSTEMS: A 12 system review of systems was negative except for where noted in the history of present illness above. 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 Social History Main Topics Smoking status: Current Every Day Smoker Packs/day: 0.75 Years: 28.00 Types: Cigarettes Start date: 1986 Smokeless tobacco: Never Used Comment: "I've tried everything there is" Alcohol use No Drug use: No Sexual activity: Not on file Other Topics Concern Not on file Social History Narrative Lives with adult daughter and grandchild Has AD, MPOA is father [place] Mireles Code status: FULL CURRENT MEDICATIONS: Current Outpatient Prescriptions Medication Sig Dispense Refill ALBUTEROL INHL Inhale as needed. ALPRAZolam (XANAX) 0.25 MG tablet Take 0.25 mg by mouth 2 (two) times a day. budesonide-formoterol (SYMBICORT) 160-4.5 mcg/actuation inhaler Inhale 2 puf fs 2 (two) times a day. calcium carbonate-vitamin D3 600 mg(1,500mg) -800 unit Tab Take 1 tablet by mouth 3 (three) times a day. carvedilol (COREG) 6.25 MG tablet Take 12.5 mg by mouth 2 (two) times a day. diphenhydrAMINE (BENADRYL) 25 mg capsule Take 50 [...] 10 mg by mouth nightly. ondansetron (ZOFRAN) 4 MG tablet Take 4 mg by mouth every 8 (eight) hours as needed for nausea. predniSONE (DELTASONE) 20 MG tablet Take 2 tablets (40 mg total) by mouth da ai. 2 tablet 0 rufinamide (BANZEL) 400 MG tablet Take 4 tablets (1,600 mg total) by mouth 2 (two) times a day. 720 tablet 3 simvastatin (ZOCOR) 20 MG tablet Take 20 mg by mouth nightly. solifenacin (VESICARE) 10 MG tablet Take 5 mg by mouth daily. SUMAtriptan succinate 11 mg AePB Use in each nostril. UNABLE TO FIND daily. CENTRUM ADULTS TAKING 1 TAB DAILY. venlafaxine (EFFEXOR-XR) 150 MG ER 24 hr capsule Take 225 mg by mouth every morning. No current facility-administered medications for this visit. ALLERGIES: Allergies Allergen Reactions Aspirin Other (See Comments) Interacts with epilepsy meds Tylenol [Acetaminophen] Swelling Tylenol 3; Lips swell and blister Examination: Vitals: 03/12/19 1108 BP: 116/65 Pulse: 101 Weight: 84.5 kg (186 lb 3.2 oz) Height: 1.6 m (5' 3") Body mass index is 32.98 kg/m. Ms. Cullen is awake, alert, and [...] nerve stimulator. The stimulation int ensity was 2.5 mA (increased to 2.75 mA). Frequency of 20 Hz and a pulse width of 250 s (decreased to 130 s). On time is 30 seconds with an off time of 1 .1 minutes (decreased to 0.8 minutes). Magnet current strength was 2.75 mA (rep rogrammed to 3.00). Magnet on time of 60 seconds and a magnet pulse width of 25 0 s (decreased to 130 s). System diagnostics reveal no problems and the [facility] M105 generator was implanted on 02/25/2016. There is 25-50% (close to 50%) of the service remaining. She tolerated several cycles of this new setting in the clinic without complaints of side effects. IMPRESSION/PLAN: Summary: Rajiv Cullen is a 48 y.o.-year-old, right-handed female with refractory epil epsy of cryptogenic cause. Inpatient video EEG monitoring on 3 past occasions a [facility] 1996, [facility] in 2010, and [facility] in May did not clarify her [...] improvement in her seizure frequen cy and increased doses seems to have made her seizures milder and of shorter dur ation, though the frequency is relatively stable. I recommended we continue to optimize Banzel and she agrees so will increase to 1600 mg BID. If after taking 1600 mg BID, she notes little imrovement she understands to give our office a c all and I would favor adding a third antiseizure medication, possibly Briviact. I sent a new prescription for Banzel with refills to [facility] where she gets t his filled. She will continue her lamotrigine 200 mg 3 times daily. She also t akes folic acid 1 mg daily to prevent neural tube defects if she were to become . I have reprogrammed her VNS settings for increased antiseizure protection. She stopped taking Chantix since this increased her seizure frequency and has re sumed smoking. I counselled her on the importance of smoking cessation for num erous health reasons, specifically the effect continued smoking has on her alrea dy very poor lung health. She will follow-up with her primary care provider and discuss an alternate approach to smoking cessation since Chantix may have incre ased her seizure frequency. I have encouraged her to continue increasing her compliance with the treatment o f her sleep apnea, emphasizing the connection with her sleep apnea and her seizu re and migraine control. I informed and she understands that state driving laws in [place] and [place] re strict driving for 6 [...] machinery or exposure to open heat sources. At our recent epilepsy surgical case conference we briefly discussed her case in light of additional neuroimaging and robotic neurosurgery capabilities we antic ipate having available in our epilepsy center at some point in the near future, possibly in the next year. If this plan fully materializes and shows promise to definitively localize the focus of her seizure onset, we will plan to re-presen t her case at a future epilepsy surgery conference. 2) Migraines - She mentions that her migraines have again been more of a consis tent issue. She was unable to keep the prior appt with Karmen Miles due to il lness so we will reconsult and schedule this again. She understands the importa nce of keeping this appt or calling to reschedule. She had been prescribed proc hlorperazine for migraines which had seemed to help. Also she did not have the brain MRI I ordered previously so this is re-ordered. We will do this without jose m wren given her relatively recent acute kidney injury. In the meantime she co ntinues sumatriptan nasal spray prn. I would like to see her back in 3 months to see how she is doing but she underst ands if things are not going well in the interim she should contact our office s ooner. She will see Karmen Miles in the migraine clinic March 2019. Over 50% of this 45 minute visit was spent counseling the patient and her family , coordinating care and discussing the treatment plan. Time in 1145 Time out [id number] documented in this encounter Plan of Treatment Care Team Description Date Type Specialty Hortencia Stewart APRN [address] [facility] [address] [place] [address] [phone] 03/31/2020 Office Visit Neurology Order Schedule Name Type Priority Associated Diag noses 1 Occurrences starting 03/12/2019 until 09/11/2019 Amb Referral To Neurology Outpatient Routine Hx o f migraines Referral documented as of this encounter Results * MRI Head wo contrast (05/03/2019 1:15 PM CDT) Specimen Impressions Performed At 1. Bifrontal encephalomalacia and gliosis, right grea ter than left. [facility] 2. No denton matter heterotopia, vascular malformation, tumor or infarct. No cavernoma. The hippocampi are symmet golden in size and signal.. 3. Development of abnormal white matter signal in the posterior periventricular and pontine regions may be related to chronic small vessel ischemic changes. READING SITE: [facility]. ATTESTATION STATEMENT: The Staff Radiologist has personally re viewed the images and dictated, reviewed, or edited the final report. Narrative Performed At Patient: RAJIV CULLEN MCVIOLACAITLYN Sex#: F # [id number] Lazara#: [id number] Location: [facility] MRI Procedure Requested: [id number] MRI HEAD WO CONTRAST Reason for Exam: Partial epilepsy wit h impairment of consciousness, intractable (HCC) Exam Ordered: 05/03/2019 115 3 Exam Date/Time: 05/03/2019 1315 Begin exam date/time: 05/03/2019 1200 MRI HEAD WO CONTRAST Date: 05/03/2019 1:27 PM Indication: Partial epilepsy with imp airment of consciousness, intractable (HCC). Hx of migraines. Comparison: MRI brain dated 05/06/2011. Technique: Multiplanar multisequence MR I of the brain was performed without intravenous contrast using the seizure protocol. Findings: No denton matter heterotopia, vascular ma lformation or tumor. No evidence of cavernoma. The hippocampi are symmet golden in size and signal. Posterior changes of bilateral frontal craniotomies. Bilateral frontal lobe encephalomalacia, right greater th an left, with gliosis. No acute infarct. No acute or chronic h emorrhage. Mild asymmetric prominence of the temporal horn of the right lateral ventricle, unchanged from 2010.. Nonspecific poste rior periventricular abnormal FLAIR white matter hyperintensity. Ther e is moderate nonspecific T2 hyperintensity within the leatha bilatera lly. This is significantly progressed from prior. The scalp and ca lvarium are normal. The pituitary and sella are normal. No Chiari malform ation. The visualized upper cervical spine is normal. The visualized orbits and globes are no rmal. The visualized paranasal sinuses are clear. The mastoid air cell s are clear. Normal flow voids within the vertebral, basilar, and internal carotid arteries indicating patency. Procedure Note Interface, Rad Results In - 05/04/2019 4:29 PM CDT Patient: RAJIV CULLEN Sex#: F # [id number] Lazara#: [id number] Location: [facility] MRI Procedure Requested: [id number] MRI HEAD WO CONTRAST Reason for Exam: Partial epilepsy with impairment of consciousness, intractable (HCC) Exam Ordered: 05/03/2019 1153 Exam Date/Time: 05/03/2019 1315 Begin exam date/time: 05/03/2019 1200 MRI HEAD WO CONTRAST Date: 05/03/2019 1:27 PM Indication: Partial epilepsy with impairment of consciousness, intractable (HCC). Hx of migraines. Comparison: MRI brain dated 05/06/2011. Technique: Multiplanar multisequence MRI of the brain was performed without intravenous contrast using the seizure protocol. Findings: No denton matter heterotopia, vascular malformation or tumor. No evidence of cavernoma. The hippocampi are symmetric in size and signal. Posterior changes of bilateral frontal craniotomies. Bilateral frontal lobe encephalomalacia, right greater than left, with gliosis. No acute infarct. No acute or chronic hemorrhage. Mild asymmetric prominence of the temporal horn of the right lateral ventricle, unchanged from 2010.. Nonspecific posterior periventricular abnormal FLAIR white matter hyperintensity. There is moderate nonspecific T2 hyperintensity within the leatha bilaterally. This is significantly progressed from prior. The scalp and calvarium are normal. The pituitary and sella are normal. No Chiari malformation. The visualized upper cervical spine is normal. The visualized orbits and globes are normal. The visualized paranasal sinuses are clear. The mastoid air cells are clear. Normal flow voids within the vertebral, basilar, and internal carotid arteries indicating patency. IMPRESSION 1. Bifrontal encephalomalacia and gliosi s, right greater than left. 2. No denton matter heterotopia, vascular malformation, tumor or infarct. No cavernoma. The hippocampi are symmetric in size and signal.. 3. Development of abnormal white matter signal in the posterior periventricular and pontine regions may be related to chronic small vessel ischemic changes. [facility] ATTESTATION STATEMENT: The Staff Radiologist has personally reviewed the images and dictated, reviewed, or edited the final report. Performing Organization Address City/State/Zipcode Ph one Number [facility] documented in this encounter Visit Diagnoses Diagnosis Partial epilepsy with impairment of con sciousness, intractable (HCC) Localization-related (focal) (partial) epilepsy and epileptic syndromes with complex partial seizures, with intractable epilepsy Hx of migraines Smoking Tobacco use disorder documented in this encounter
--- OUTSIDE RECORDS SUMMARY | 2020-02-11 03:09 | XMS REPORT | Encounter Summary ---
Author Author [facility] Organization [facility] Address Unknown Phone Unavailable Care Team Providers Care In Service Coordinator Name Role Phone EldonFreedom correa PCP Reason for Visit * Reason Comments Follow-up Last office visit was on (6 week follow-up) with JESE. Migraine Encounter Details Care Team Description Date Type Department Karmen Miles NP [address] [address] [phone] Migraine without aura and without status migrainosus, not intractable (Primary Dx); Analgesic overuse headache 05/15/2019 Office Visit [facility] [place] [address] [facility] [address] [place] [address] Social History Date Tobacco Use Types Packs/Day [...] Signs Reading Time Taken Comments Vital Sign 135/70 05/15/2019 9:26 AM CDT Blood Pressure 110 05/15/2019 9:26 AM CDT Pulse - - Temperature - - Respiratory Rate - - Oxygen Saturation - - Inhaled Oxygen Concentration 88.4 kg (194 lb 12.8 oz) 05/15/2019 9:26 AM CDT Weight 160 cm (5' 3") 05/15/2019 9:26 AM CDT Height 34.51 05/15/2019 9:26 AM CDT Body Mass Index documented in this encounter Progress Notes * Karmen Miles FILENET P8 DEVELOPER - 05/15/2019 11:00 AM CDT [facility] Date: 05/15/19 Patient Name: Summer Cullen Date of : 1970 Chief Complaint: Encounter Diagnoses Name Primary? Migraine without aura and without status migrainosus, not intractable Yes Analgesic overuse headache Summer was seen today in follow-up regarding her history of migraine headache wi thout aura. At her initial visit I started her on nortriptyline for headache prevention. Rhoda schafer was able to advance up to 40 mg daily and has seen improvement in headache int ensity and duration. She is still getting headache about 12 days a month. Now headaches do not start until around 6 or 7 in the evening and only last a few ho urs in duration. Headache is still becoming severe about 1 time a week. I aske d her to start a calendar but she did not bring this today. She denies any side effects with the nortriptyline and is pleased with the improvement. For abortive therapy I prescribed her rizatriptan 10 mg to be used at the onset of headache. She states that this helped with headache intensity but does not c ompletely abort it. No side effects with the medication. For chronic knee, neck and back pain she has been using ibuprofen 800 mg 2-3 anita es a day and Alexander 1 to 2 tablets every 4-6 hours. I had a long discussion with her and the fact that this is likely causing rebound headache at this point. We discussed reducing use of these medications. She states that she is continued to use Alexander 1 tablet every 4 hours. She has reduced her ibuprofen use to 600 mg 1 time a day. Since her last visit she did have a repeat MR imaging of the brain with and with out contrast as ordered by Sarai Stewart. This showed bifrontal once a formation gliosis the right greater than left which was also present on MRI from 2010. T here was some white matter changes consistent with chronic small vessel disease. No cause for headache. For management of seizure disorder she continues to follow with Dr. Tsai and Hilda Stewart. Her next follow-up visit is scheduled on 06/15/2019. For management she currently takes lamotrigine 200 mg 3 times daily and Banzel 1600 mg twice d aily. She is tried and failed multiple other therapies for seizures and did not feel that any of them have helped with headache either. Chronically she has is sues with delayed sleep onset and poor sleep maintenance. There is a strong fam ai history of migraine. She does wear BiPAP for sleep apnea. Anxiety and depr ession are managed by her primary physician. She is on venlafaxine 225 mg daily and takes alprazolam as needed. She is on carvedilol for blood pressure. No o ther complaints at this time. Previous medications tried for migraine prevention: nortriptyline for SWANSON. venla faxine, carvedilol, topiramate, divalproex, keppra, lamotrigine (all for treatme nt of comorbid mood/seizures) Previous acute medications tried for migraine: Sumatriptan nasal powder, hydroco done, ibuprofen Previous treatments or procedures tried for migraine: Right tragus piercing Review of Systems Constitutional: Negative. HENT: Positive for tinnitus. Eyes: Negative. Respiratory: Positive for cough. Cardiovascular: Negative. Gastrointestinal: Positive for diarrhea. Genitourinary: Negative. Musculoskeletal: Positive for back pain, joint pain and neck pain. Skin: Negative. Neurological: Positive for headaches. Endo/Heme/Allergies: Negative. Psychiatric/Behavioral: Negative. Examination: Vitals: 05/15/19 0926 BP: 135/70 Pulse: (!) 110 Weight: 88.4 kg (194 lb 12.8 oz) Height: 1.6 m (5' 3") On examination she was alert and oriented to person, place and time. Pupils wer e equal, round and reacted directly and consensually to light. Extraocular eye movements full with no nystagmus. Face symmetrical at rest and with activation. Motor exam revealed normal strength 5/5 in all extremities. Sensory exam was no rmal to light touch. Gait and coordination normal. There was no evidence of ribera b ataxia. Rapid alternating movements were symmetric. Assessment & Plan: SNOMED CT(R) 1. Migraine without aura and without status migrainosus, not intractable MIGRAI NE WITHOUT AURA, NOT REFRACTORY nortriptyline (PAMELOR) 25 MG capsule 2. Analgesic overuse headache ANALGESIC OVERUSE HEADACHE Increase nortriptyline to 50 mg for 10 days, then if headaches persist she will increase to 75 mg daily. Continue rizatriptan 10 mg at headache onset with the option to repeat after 2 h ours. Continue reducing use of both ibuprofen and hydrocodone. Once again we have rev iewed her high risk and potential rebound status at this time and she indicates understanding. Follow-up in 8 weeks Imaging: MRI HEAD WO CONTRAST Date: 05/03/2019 1:27 [...] of the right lateral ventricle, unchanged from 2011.. Nonspecific posterior periventricular abnormal FLAIR white matter [...] indicating patency. IMPRESSION 1. Bifrontal encephalomalacia and gliosis, right greater than left. 2. No denton matter heterotopia, vascular malformation, tumor or infarct. No cavernoma. The hippocampi are symmetric in size and signal.. 3. Development of abnormal white matter signal in the posterior periventricular and pontine regions may be related to chronic small vessel ischemic changes. 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 Difficulty staying asleep Exercise tolerance finding limited by leg pain--if walking a long way will use electric cart in grocery st ore Fractures from seizures--leg and ankle fractures in past Head injury concussions from seizures--since age 21 HL (hearing loss) left ear [place]-no hearing aides Kidney stones Migraine JOSE ALBERTO on CPAP Osteoarthritis mainly ankles and knees and wrists and back Osteopenia Rapid heart rate reason for coreg Seizures (HCC) Sinusitis possibly--history of sinus infections Visual impairment wears glasses Family History Problem Relation Age of Onset Hyperlipidemia Mother Migraines Mother Alzheimer's disease Mother Hyperlipidemia Father Diabetes Father Alcohol abuse Father Heart disease Other FAMILY HX Heart disease Other FAMILY HX Rheum arthritis Other FAMILY HX Migraines Cousin No Known Problems Sister No Known Problems Brother No Known Problems Daughter No Known Problems Son No Known Problems Brother Social History Social History Marital status: Spouse name: N/A Number of children: N/A Years of education: N/A Social History Main Topics Smoking status: Current Every Day Smoker Packs/day: 0.75 Years: 28.00 Types: Cigarettes Start date: 1986 Smokeless tobacco: Never Used Comment: "I've tried everything there is" Alcohol use No Drug use: No Sexual activity: Not Asked Other Topics Concern None Social History Narrative Lives with adult daughter and grandchild Has AD, MPOA is father Dayton Mireles Code status: FULL Karmen Miles APRN [facility] [place] [address] [address] (phone) (fax) documented in this encounter Plan of Treatment Care Team Description Date Type Specialty Hortencia Stewart APRN [address] [address] [phone] 03/31/2020 Office Visit Neurology documented as of this encounter Visit Diagnoses Diagnosis Migraine without aura and without statu s migrainosus, not intractable Analgesic overuse headache documented in this encounter
--- OUTSIDE RECORDS SUMMARY | 2020-02-11 03:09 | XMS REPORT | Encounter Summary ---
Author Author [facility] Organization [facility] Address Unknown Phone Unavailable Care Team Providers Care [employer] Name Role Phone EldonFreedom correa PCP Reason for Visit * Reason Comments Follow-up Encounter Details Care Team Description Date Type Department Hortencia Stewart, BUSINESS TECHNOLOGY ARCHITECT [address] [address] [phone] Follow-up 03/12/2019 [place] [facility] [place] [address] [facility] [address] [place], [place] [address] Social History Date Tobacco Use Types Packs/Day [...] encounter Miscellaneous Notes * Telephone Encounter - Hortencia Stewart, CARRIE - 03/12/2019 3:33 PM CDT In finishing the patient's visit note today, I am reminded that I wanted her to have a repeat brain MRI last fall when she was complaining of worsening migraine s but she never did get this done. At her November visit, migraines were mildly improved so we waited. Now these have worsened so we should go ahead and get th is done. Called patient to discuss this and let her know I have reordered this but got no answer. Left a message for her to call us back so this can be review ed with her. documented in this encounter Plan of Treatment Care Team Description Date Type Specialty Hortencia Stewart APRN [address] [address] [phone] 03/31/2020 Office Visit Neurology documented as of this encounter Visit Diagnoses Not on filedocumented in this encounter
--- OUTSIDE RECORDS SUMMARY | 2020-02-11 03:09 | XMS REPORT | Encounter Summary ---
Author Author [facility] Organization [facility] Address Unknown Phone Unavailable Care Team Providers Care Facility Coordinator Name Role Phone NereydaFreedom york PCP Reason for Visit * Reason Comments Migraine follow up from seeing LEÓN Stewart * Consultation (Routine) Referred By Contact Referred To Contact Status Reason Specialty Diagnoses / Procedures Hortencia Stewart APRN [address] [address] Char Valle DO [address] [facility] lawanda [address] [place] [address] Closed Specialty Services Neurology Diagnoses Required Hx of migraines Encounter Details Care Team Description Date Type Department Karmen Miles NP [address] [address] [phone] Chronic migraine without aura without st atus migrainosus, not intractable (Primary Dx); Hx of migraines; Migraine without aura and without status migrainosus, not intractable 04/03/2019 Office [place] [facility] [place] [address] [facility] [address] [place] [address] Social History Date Tobacco Use Types Packs/Day [...] Signs Reading Time Taken Comments Vital Sign 118/72 04/03/2019 10:49 AM CDT Blood Pressure 102 04/03/2019 10:49 AM CDT Pulse - - Temperature - - Respiratory Rate - - Oxygen Saturation - - Inhaled Oxygen Concentration 86.2 kg (190 lb) 04/03/2019 10:49 AM CDT Weight 160 cm (5' 3") 04/03/2019 10:49 AM CDT Height 33.66 04/03/2019 10:49 AM CDT Body Mass Index documented in this encounter Progress Notes * Karmen Miles NP - 04/03/2019 11:00 AM CDT [facility] Date: 04/03/19 Patient Name: Summer Cullen Date of : 1970 Chief Complaint: Encounter Diagnoses Name Primary? Hx of migraines Chronic migraine without aura without status migrainosus, not intractable Ye s Migraine without aura and without status migrainosus, not intractable Summer Cullen is a 48-year-old right-handed female seen today in neurologic [facility] regarding complaints of intermittent headache. Headaches have been a recurring issue since the early s. Over the years she r eports a gradual increase in frequency and intensity of headache. For the last 2 years she has seen a notable increase in headache with no trigger identified. Currently she reports headache 8 to 12 days a month with all headaches being mo derate to severe in intensity. Episodes last anywhere from 4 to 48 hours in dur ation. The majority of headaches begin with a right frontoparietal sharpness. As heada mark anthony progresses she will develop her right retro-orbital throbbing and eventually pain extends to the right occipital as a sharpness and throbbing. Occasionally headaches will present in the same fashion but on the left. Associated symptoms with headache include photophobia, phonophobia, nausea, fatigue, cognitive slo wing and blurred vision on the right. Triggers identified for headache include increased stress, lack of sleep, barometric pressure change in missing a meal. In the past she has never been seen specifically for headache. For seizure diso rder she has been on topiramate and divalproex but is unsure if these have any e ffect on headache. Recently she had a right tragus piercing and for treatment o f headache but has not seen any benefit. For acute treatment of headache she rec ently tried sumatriptan nasal powder which she tolerated but did not see any saurav efit. She has never tried any oral triptan's. Right now for treatment of heada mark anthony she supplements her [place] or ibuprofen 800 mg which appeared to provide mini mal benefit. She does mention that she takes [place] 1 to 2 tablets every 4-6 lisy rs and ibuprofen 800 mg 2-3 times a day for treatment of chronic back, neck and joint pain. About a year ago she reports having issues with kidney injury due to overuse of ibuprofen but continues to overuse. There is a familial history of migraine affecting her mother, sister and abimaele r. Chronically she has issues with delayed sleep onset and poor sleep maintenan ce. She does have a history of sleep apnea and wears BiPAP which has been helpf ul with sleep. She reports a history of anxiety and depression which are current ly medically managed by her primary care physician. She reports taking carvedil ol for tachycardia. She does smoke half a pack of cigarettes per day. She reports a chronic history of seizure disorder beginning in [address] Tsai and Hortencia Stewart since 2010. She does have a past history of sakina ateral frontal craniotomy with last MRI in 2010 showing bilateral frontal lobe e ncephalomalacia with associated gliosis, right greater than left. Recently Kaylyn Stewart ordered repeat MR imaging of the brain for reevaluation but the patient has not completed this yet. For management of seizures she currently takes cabezas otrigine 200 mg 3 times daily and Banzel 1600 mg twice daily. In the past she h as tried and failed Depakote, Topamax, Dilantin, Tegretol, phenobarbital, Potiga and Keppra. She reports developing kidney stone with Topamax. Previous medications tried for migraine prevention: topiramate, divalproex Previous acute medications tried for migraine: Sumatriptan nasal powder Previous treatments or procedures tried for migraine: Right tragus piercing Review of Systems Constitutional: Positive for malaise/fatigue. Eyes: Positive for photophobia. Respiratory: Negative. Cardiovascular: Negative. Gastrointestinal: Negative. Genitourinary: Negative. Musculoskeletal: Positive for back pain, joint pain and neck pain. Skin: Negative. Neurological: Positive for headaches. Endo/Heme/Allergies: Negative. Psychiatric/Behavioral: Positive for depression. Depression and anxiety reportedly well managed by PCP Examination: Vitals: 04/03/19 1049 BP: 118/72 Pulse: (!) 102 Weight: 86.2 kg (190 lb) Height: 1.6 m (5' 3") On examination she was alert and oriented to person, place and time. Language wa s fluent, attention and concentration mostly intact, and able to provide history without any difficulty. Pupils were equal, 5 mm bilateral, round and reacted d irectly and consensually to light. Extraocular movements were full without nyst agmus. Visual cohen were full on confrontation. No ptosis present. Face is symm etrical and sensation intact to light touch. Hearing was normal to conversation bilaterally. The uvula was in the midline and elevated briskly and tongue exten ds midline. There was no weakness of the sternocleidomastoid muscles. Motor exa mination revealed normal tone and strength 5/5 in all extremities. Sensory exam normal to light touch. Deep tendon reflexes were 2/5 in all four extremities. Gait and tandem walk were normal. There was no evidence of limb ataxia. Rapid alternating movements were symmetric. Assessment & Plan: SNOMED CT(R) 1. Chronic migraine without aura without status migrainosus, not intractable [place] GRAINE WITHOUT AURA, NOT REFRACTORY nortriptyline (PAMELOR) 10 MG capsule rizatriptan (MAXALT) 10 MG tablet 2. Hx of migraines H/O: MIGRAINE Amb Referral To Neurology 3. Migraine without aura and without status migrainosus, not intractable MIGRAI NE WITHOUT AURA, NOT REFRACTORY Summer provides a long history of recurring headache consistent with a diagnosis of migraine headache without aura. I had a long discussion with her regarding m igraine headaches reviewing their natural history, clinical manifestations, bioc hemical mechanisms, triggering factors and treatment options. We reviewed the f act that anxiety, depression, seizure disorder and sleep disorder, and comorbid conditions of migraine. For abortive therapy we had a long discussion regarding my suspicion for some rebound headache component given the chronic daily use of [place] and ibuprofen. We discussed the detrimental effects that daily use of the se medications can and have on headache as well as other issues including gastro intestinal or renal. I have instructed her to try to taper and limit use of ibu profen and [place]. She indicates understanding. I have instructed her to contact radiology department in order to schedule the M RI previously ordered by Hortencia Stewart last month to evaluate for structural abno rmality. Today we have agreed to initiate a trial of nortriptyline for headache preventio n. I provided her with written instructions to gradually advance the dose to ma ximum of 40 mg daily. We reviewed the use, benefits and potential side effects of this therapy. I have asked her to begin keeping a headache calendar, recordi ng intensity on a 0-5 scale. She will bring the calendar to each visit. For acute treatment of headache I am going to give her a prescription for rizatr iptan 10 mg to be used at the onset of headache. We reviewed the use, benefits and side effects of this therapy. Hopefully this will prevent any further prolo nged headaches. I have not recommended any other changes and have asked her to return in 6 weeks to report on her response. Allergies Allergen Reactions Aspirin Other (See Comments) Interacts with epilepsy meds Tylenol [Acetaminophen] Swelling Tylenol 3; Lips swell and blister Past Medical History: Diagnosis Date Allergic rhinitis seasonal allergies Anxiety Arthritis Back pain Chronic constipation COPD (chronic obstructive pulmonary disease) (HCC) Depression Difficulty falling asleep at night until loom fixer helper hours Difficulty staying asleep Exercise tolerance finding limited by leg pain--if walking a long way will use electric cart in grocery st ore Fractures from seizures--leg and ankle fractures in past Head injury concussions from seizures--since age 21 HL (hearing loss) left ear [place]-no hearing aides Kidney stones Migraine JOSE ALBERTO [...] with adult daughter and grandchild Has AD, DAWIT is father Dayton Mireles Code status: FULL Karmen Miles APRN [facility] [address] [address] (phone) [phone] (fax) documented in this encounter Plan of Treatment Care Team Description Date Type Specialty Hortencia Stewart APRN [address] [address] [phone] 03/31/2020 Office Visit Neurology documented as of this encounter Visit Diagnoses Diagnosis Hx of migraines Chronic migraine without aura without s tatus migrainosus, not intractable Migraine without aura and without statu s migrainosus, not intractable documented in this encounter
--- OUTSIDE RECORDS SUMMARY | 2020-02-11 03:09 | XMS REPORT | Encounter Summary ---
Author Author [facility] Address Unknown Phone Unavailable Care Team Providers Care Senior Informatica Etl Developer Name Role Phone EldonFreedom correa PCP Reason for Referral * Auth/Cert (Routine) Referred By Contact Referred To Contact Status Reason Specialty Diagnoses / Procedures Santos Bhatti MD [address] [facility] [address] [place] [address] New Request Diagnoses Encounter for adjustment and management of neurostimulator Localization-relat ed (focal) (partial) symptomatic epilepsy and epileptic syndromes with complex partial seizures, intractable, without status epilepticus P rocedures Case request operating room: REPLACEMENT, GENERATOR, VAGUS NERVE NEUROSTIMULATOR [place] IMP STIM,CRANIAL,SUBQ, >1 ARRAY Reason for Visit * Reason Comments VNS Battery Replacement * Consultation (Routine) Referred By Contact Referred To Contact Status Reason Specialty Diagnoses / Procedures Hortencia Stewart, CARRIE [address] [facility] [address] [place] [address] Santos Bhatti MD [address] [facility] [address] [place] [address] Closed Specialty Services Neurosurgery Diagnoses Required Partial epilepsy with impairment of consciousness, intractable (HCC) Encounter Details Care Team Description Date Type Department Hortencia Stewart APRN [address] [facility] [address] [place] [address] [phone] Rai Elias APRN [address] [facility] [address] [place] [address] [phone] Battery end of life of vagus nerve stimu lator (Primary Dx); Partial epilepsy with impairment of consciousness, intractable (HCC) 07/18/2019 Initial consult [facility] Neurol ogical & Spine Surgery [address] [facility] [place] [address] Social History Date Tobacco Use Types Packs/Day [...] Signs Reading Time Taken Comments Vital Sign 123/77 07/18/2019 1:23 PM CDT Blood Pressure 101 07/18/2019 1:23 PM CDT Pulse - - Temperature - - Respiratory Rate - - Oxygen Saturation - - Inhaled Oxygen Concentration 89.4 kg (197 lb) 07/18/2019 1:23 PM CDT Weight 160 cm (5' 3") 07/18/2019 1:23 PM CDT Height 34.9 07/18/2019 1:23 PM CDT Body Mass Index documented in this encounter Progress Notes * Rai Elias APRN - 07/18/2019 2:00 PM CDT [facility] Neurosurgery Clinic NAME: Summer Gotti Subhash : [id number] PRIMARY CARE PROVIDER: Freedom Villarreal MD Visit date: 07/18/2019 CHIEF COMPLAINT: VNS near end-of-life HPI: I had the opportunity see Summer Cullen today in clinic. As you will re call, she is a pleasant 49-year-old woman with history of history of refractory epilepsy with cryptogenic cause. Her vagus nerve stimulator was recently interr ogated in office 03/12/2019 by Sarai Stewart APRN, neurology, and found to be nba r end-of-life. Previous generator replacement was conducted approximately 3 yea [address] ago by Dr. Bhatti. She reports the last time her generator was placed it w as completely out and she did suffer multiple seizures during the time it was of f. Past Medical History: Diagnosis Date Allergic rhinitis seasonal allergies Anxiety Arthritis Back pain Chronic constipation COPD (chronic obstructive pulmonary disease) (HCC) Depression Difficulty falling asleep at night until call center rn hours Difficulty staying asleep Exercise tolerance finding limited by leg pain--if walking a long way will use electric cart in grocery st [place] Fractures from seizures--leg and ankle fractures in past Head injury concussions from seizures--since age 21 HL (hearing loss) left ear [place]-no hearing aides Kidney stones Migraine JOSE ALBERTO on CPAP Osteoarthritis mainly ankles and knees and wrists and back Osteopenia Rapid heart rate reason for coreg Seizures (HCC) Sinusitis possibly--history of sinus infections Visual impairment wears glasses Past Surgical History: [...] PROGRAMING; Reyna geon: Sj Vivar MD; Location: [facility] Main OR; Service: ENT; Laterality : N/A; TUBAL LIGATION 1992 Social History Socioeconomic History Marital status: Spouse [...] file Gets together: Not on file Attends jainism service: Not on file Active member of [...] with adult daughter and grandchild Has AD, MPOVinicius is father Dayton Mireles Code status: FULL Review of Systems Constitutional: Positive for malaise/fatigue. HENT: Positive for hearing loss. Gastrointestinal: Positive for constipation and nausea. Neurological: Positive for seizures. Psychiatric/Behavioral: Positive for depression and memory loss. Physical Exam Constitutional: She is oriented to person, place, and time. She appears well-dev eloped and well-nourished. HENT: Head: Normocephalic and atraumatic. Eyes: Pupils are equal, round, and reactive to light. Neck: Normal range of motion. Neck supple. Cardiovascular: Normal rate. Pulmonary/Chest: Effort normal. Abdominal: Soft. Musculoskeletal: Normal range of motion. Neurological: She is alert and oriented to person, place, and time. She has norm al strength. GCS eye subscore is 4. GCS verbal subscore is 5. GCS motor subscore is 6. Skin: Skin is warm and dry. Capillary refill takes less than 2 seconds. Psychiatric: She has a normal mood and affect. Her behavior is normal. Exam: Vitals: 07/18/19 1323 BP: 123/77 Pulse: 101 Weight: 89.4 kg (197 lb) Height: 1.6 m (5' 3") Surgical Site: Assessment & Plan: SNOMED CT(R) 1. Partial epilepsy with impairment of consciousness, intractable (HCC) PARTIAL EPILEPSY WITH IMPAIRMENT OF CONSCIOUSNESS Ambulatory referral to Neurosurgery vancomycin (VANCOCIN) 1,250 mg in sodium chloride 0.9 % (NS) 500 mL IVPB Patient's existing vagus nerve stimulator generator is reaching end of service. Patient's seizures are well controlled with existing vagus nerve stimulator. Rec ommend replacing the VNS generator. Discussed the technical details of the surge ry. Reviewed possible surgical risks including infection, hemorrhage, disruption or damage to the existing electrode, eventual need for replacement of the exist ing proximal electrode, or even failure to improve, and need for further surgery . Patient was given time to ask questions and all were answered to satisfaction. Patient will continue to follow closely with Sarai Stewart APRN with [facility] Neurology for disease management. Placed the patient on the operative calendar for 08/03/2019. Encouraged to call with questions or concerns. Rai Elias APRN-Keshia [facility] Neurosurgery Medical [place] [address] [place] [address] documented in this encounter Plan of Treatment Care Team Description Date Type Specialty Hortencia Stewart APRN [address] [address] [phone] 03/31/2020 Office Visit Neurology documented as of this encounter Visit Diagnoses Diagnosis Partial epilepsy with impairment of con sciousness, intractable (HCC) Localization-related (focal) (partial) epilepsy and epileptic syndromes with complex partial seizures, with intractable epilepsy Battery end of life of vagus nerve stim ulator documented in this encounter
--- OUTSIDE RECORDS SUMMARY | 2020-02-11 03:09 | XMS REPORT | Encounter Summary ---
Author Author [facility] Organization [facility] Address Unknown Phone Unavailable Care Team Providers Care Sign Shop Supervisor Name Role Phone EldonFreedom correa PCP Reason for Visit * Auth/Cert (Routine) Referred By Contact Referred To Contact Status Reason Specialty Diagnoses / Procedures Santos Bhatti MD [address] [facility] [address] [place] [address] New Request Diagnoses Encounter for adjustment and management of neurostimulator Localization-relat ed (focal) (partial) symptomatic epilepsy and epileptic syndromes with complex partial seizures, intractable, without status epilepticus P rocedures Case request operating room: REPLACEMENT, GENERATOR, VAGUS NERVE NEUROSTIMULATOR [place] IMP STIM,CRANIAL,SUBQ, >1 ARRAY Encounter Details Care Team Description Date Type Department Santos Bhatti MD [address] [facility] [address] [place], [place] [id number] Partial epilepsy with impairment of cons ciousness, intractable (HCC) 08/03/2019 [facility] Encounter [address] [place], [place] [id number] Social History Date Tobacco Use Types Packs/Day [...] up: Neurosurgery Clinic 08/24/19 at 11:00 am [phone] [address] [facility] [place] [address] [place] [address] Instructions Please stay off Aspirin, Plavix, blood [...] Depression Difficulty falling asleep at night until manufacturing team leader hours Difficulty staying asleep Exercise tolerance finding limited by leg pain--if walking a long way will use electric cart in grocery st ore Fractures from seizures--leg and ankle fractures in past Head injury concussions from seizures--since age 21 HL (hearing loss) left ear [place]-no hearing aides Kidney stones Migraine Obesity JOSE [...] PROGRAMING; Reyna geon: Sj Vivar MD; Location: [facility] Main OR; Service: ENT; Laterality : [...] file Gets together: Not on file Attends faith service: Not on file Active member of [...] Stereotactic & Functional Neurosurgery | Epilepsy Surgery [facility] documented in this encounter Nursing Notes * [...] CDT Name: Summer Cullen Date: 08/03/19 CSN: [id number] Title of Operation: 1. Replacement of VNS [...] Model 1000 generator was brought onto e [facility] and connected to the single [...] unit for further recovery. [facility] | Epilepsy Surgery [facility] documented in this encounter Plan of Treatment Care Team Description Date Type Specialty Hortencia Stewart, FABRIC WORKER [address] [address] [phone] 03/31/2020 Office Visit Neurology Order Schedule Name [...] 9:03 AM CDT) UCG Urine Negative Negative [facility] Specimen Performing Organization Address City/State/Zipcode Ph one Number [facility] [address] [place] [address] LABORATORIES documented in this encounter Visit Diagnoses Diagnosis Partial epilepsy with impairment of con sciousness, intractable (HCC) Localization-related (focal) (partial) epilepsy and epileptic syndromes with complex partial seizures, with intractable epilepsy Battery end of life of vagus nerve stim ulator documented in this encounter Administered Medications Action Date Dose Rate Site Medication Order MAR Action albuterol (ACCUNEB) 2.5 mg/3 mL (0.083 %) nebulizer solution 2.5 mg 2.5 mg, Nebulization, Every 4 hours PRN , wheezing, Starting Tue08/03/19 at 1102, PACU (only) 08/03/2019 12:13 PM CDT 25 mcg fentaNYL (SUBLIMAZE) injection 25-50 mcg Given 25-50 mcg, Intravenous, Every 5 min PRN , pain, Starting 08/03/19 at 1102, PACU (only), Give only if [...] Tue08/03/19 at 0915, For 48 hours, Pre-op metoclopramide [...] , nausea/vomiting (1st line), Starting Fr i 08/03/19 [...] have IV access and refuses IM injection., documented in this encounter
--- OUTSIDE RECORDS SUMMARY | 2020-02-11 03:09 | XMS REPORT | Encounter Summary ---
Author Author [facility] Address Unknown Phone Unavailable Care Team Providers Care Hoop Cutter Name Role Phone Freedom Villarreal PCP Encounter Details Care Team Description Date Type Department Hortencia Stewart, CARRIE [address] [facility] [address] [place] [address] [phone] 04/10/2019 Telephone [facility] ogy [address] [place] [address] Social History Date Tobacco Use Types Packs/Day [...] Telephone Encounter - Michel Rae CMA - 04/10/2019 10:04 AM CDT Spoke with Ivett and told her CJL wanted the MRI w/o contrast only. Spoke with Ladonna who stated she would look into it and make sure the proper authorization was acquired. * Telephone Encounter - Hortencia Stewart APRN - 04/10/2019 9:26 AM CDT Not sure what the question is. I specifically ordered brain MRI without contras t since she has had a relatively recent kidney injury, and that is what she need s to have. Thanks. Hortencia * Telephone Encounter - Michel Rae CMA - 04/10/2019 9:09 AM CDT Ivett called from Radiology scheduling because you'd ordered an MRI of the head w/o contrast for Summer, but the authorization and CPT codes used were for an M RI of the head w/ AND w/o contrast. Ivett wasn't sure if you wanted the MRI w/ and w/o, in which case the order would need to be updated or reentered, or if y ou wanted it just w/o contrast, in which case we may need a new auth. Please ad vise. documented in this encounter Plan of Treatment Care Team Description Date Type Specialty Hortencia Stewart APRN [facility] [address] [address] [phone] 03/31/2020 Office Visit Neurology documented as of this encounter Visit Diagnoses Not on filedocumented in this encounter
--- OUTSIDE RECORDS SUMMARY | 2020-02-11 03:09 | XMS REPORT | Encounter Summary ---
Author Author [facility] Organization [facility] Address Unknown Phone Unavailable Care Team Providers Care Medical Receptionist Name Role Phone NereydaFreedom york PCP Encounter Details Care Team Description Date Type Department Merry Chadwick RN 07/18/2019 Documentation [facility] Neurol ogical & Spine Surgery [address] [facility], [address] [place] [address] Social History Date Tobacco Use Types Packs/Day [...] as of this encounter Progress Notes * Merry Chadwick RN - 07/18/2019 2:17 PM CDT Met with the patient in clinic today to discuss the following pre-operative info rmation: Surgical date: 08-03-19 Pre-operative instructions: ? Stop taking blood thinners at least one week prior to surgery (aspirin, warfar in, Plavix, Xarelto, etc.). All NSAIDs, vitamins, and supplements should be disc ontinued one week prior to surgery as well. Phentermine should be dc'd 2 weeks p rior to surgery IF cleared by Dr. Mclaughlin. ? You will be contacted by the pre-anesthesia testing team 2 weeks before your s urgery. They will assist with obtaining additional testing needed for anesthesia clearance. ? Do not eat or drink anything after midnight the night before surgery. ? Shower with chlorhexidine based solution or an antibacterial soap for at least 3 days prior to surgery and morning of surgery. Pt verbalized understanding of the above listed info. All questions answered to pt's satisfaction. Encouraged pt to call the office with questions and/or concer ns. documented in this encounter Plan of Treatment Care Team Description Date Type Specialty Hortencia Stewart, DETACKER [facility] [address] [address] [phone] 03/31/2020 Office Visit Neurology documented as of this encounter Visit Diagnoses Not on filedocumented in this encounter
--- OUTSIDE RECORDS SUMMARY | 2020-02-11 03:09 | XMS REPORT | Encounter Summary ---
Author Author [facility] Organization [facility] Address Unknown Phone Unavailable Care Team Providers Care Tunnel Elastic Operator Chainstitch Name Role Phone Freedom Villarreal PCP Encounter Details Care Team Description Date Type Department Merry Chadwick RN 07/27/2019 Telephone [facility] Neurol ogical & Spine Surgery [address] [facility] [address] [place], [place] [id number] Social History Date Tobacco Use Types Packs/Day [...] Telephone Encounter - Merry Chadwick RN - 07/27/2019 8:46 AM CDT Called pt to confirm surgery check-in time of 0900 for an 1100 start. Pt verbali zed understanding. Pt denies questions/concerns at this time. documented in this encounter Plan of Treatment Care Team Description Date Type Specialty Hortencia Stewart, FINISH MIXER [address] [facility] [address] [place] [address] [phone] 03/31/2020 Office Visit Neurology documented as of this encounter Visit Diagnoses Not on filedocumented in this encounter
--- OUTSIDE RECORDS SUMMARY | 2020-02-11 03:09 | XMS REPORT | Encounter Summary ---
Author Author [facility] Organization [facility] Address Unknown Phone Unavailable Care Team Providers Care Tube Winder Hand Name Role Phone Freedom Villarreal PCP Reason for Referral * MRI/CAT/PET Scan (Routine) Referred By Contact Referred To Contact Status Reason Specialty Diagnoses / Procedures Hortencia Stewart APRN [address] [address] Closed Radiology Diagnoses Partial epilepsy with impairment of consciousness, intractable (HCC) Hx of migraines P rocedures MRI Head wo contrast Reason for Visit * MRI/CAT/PET Scan (Routine) Referred By Contact Referred To Contact Status Reason Specialty Diagnoses / Procedures Hortencia Stewart APRN [address] [address] Closed Radiology Diagnoses Partial epilepsy with impairment of consciousness, intractable (HCC) Hx of migraines P rocedures MRI Head wo contrast Encounter Details Care Team Description Date Type Department Hortencia Stewart APRN [address] [address] [phone] Partial epilepsy with impairment of cons ciousness, intractable (HCC); Hx of migraines 05/03/2019 [facility] al Encounter [address] [place] [address] Social History Date Tobacco Use Types Packs/Day [...] 3 unit Tab (three) times a day. diphenhydrAMINE Take 50 mg by 0 (BENADRYL) [...] ly take as directed. Every 6 weeks montelukast (SINGULAIR) Take 10 mg by 0 10 mg tablet mouth nightly. ondansetron (ZOFRAN) 8 MG Take 8 mg by 0 tablet mouth every 4 (four) hours as needed for nausea. simvastatin (ZOCOR) 20 MG Take 20 mg by 0 tablet mouth nightly. solifenacin (VESICARE) 10 Take 10 mg by 0 MG tablet mouth daily. UNABLE TO FIND daily. 0 CENTRUM ADULTS TAKING 1 TAB DAILY. venlafaxine 225 mg ER 24 Take 225 mg 0 hr tablet by mouth every morning. 12/11/2019 carvedilol (COREG) 12.5 Take 12.5 mg 0 MG tabletIndications: D/C by mouth 3 (three) times a day. 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 04/03/2019 05/15/2019 nortriptyline (PAMELOR) Take 4 120 capsule 5 10 MG capsuleIndications: capsules (40 Chronic migraine without mg total) by aura without status mouth migrainosus, not nightly. intractable 04/03/2019 12/11/2019 rizatriptan (MAXALT) 10 Take 1 [...] Treatment Care Team Description Date Type Specialty Hortencai Stewart, EDUCATION ADVISER [address] [address] [phone] 03/31/2020 Office Visit Neurology documented as of this encounter Procedures Comments Procedure Name Priority Date/Time Associated Diag nosis MRI HEAD WO CONTRAST Routine 05/03/2019 Partial e pilepsy with 1:15 PM CDT impairment of consciousness, intractable (HCC) Hx of migraines documented in this encounter Results * MRI Head wo [...] chronic small vessel ischemic changes. READING SITE: [facility]. ATTESTATION STATEMENT: The Staff Radiologist has personally re viewed the images and dictated, reviewed, or edited the final report. Narrative Performed At Patient: SUMMER CULLEN Sex#: F # [id number] Lazara#: [id number] Location: [facility] MRI Procedure Requested: [id number] MRI HEAD WO CONTRAST Reason for Exam: [...] In - 05/04/2019 4:29 PM CDT Patient: SUMMER CULLEN Sex#: F # [id number] Lazara#: [id number] Location: [facility] MRI Procedure Requested: [id number] MRI HEAD WO CONTRAST Reason for Exam: [...] chronic small vessel ischemic changes. READING SITE: [facility]. ATTESTATION STATEMENT: The Staff Radiologist has personally reviewed the images and dictated, reviewed, or edited the final report. Performing Organization Address City/State/[facility] [[email or web address] Ph one Number [place] documented in this encounter Visit Diagnoses Diagnosis Partial epilepsy with impairment of con sciousness, intractable (HCC) Localization-related (focal) (partial) epilepsy and epileptic syndromes with complex partial seizures, with intractable epilepsy Hx of migraines documented in this encounter
--- OUTSIDE RECORDS SUMMARY | 2020-02-11 03:09 | XMS REPORT | Encounter Summary ---
Author Author [facility] Organization [facility] Address Unknown Phone Unavailable Care Team Providers Care Business Programmer Name Role Phone EldonFreedom correa PCP Reason for Visit * Reason Comments Other Encounter Details Care Team Description Date Type Department Samy Tsai MD [address] [facility] [address] [place], [place] [id number] Other 07/18/2019 Refill [facility] Neurol ogy [address] [place] [address] Social History Date Tobacco Use Types Packs/Day [...] Telephone Encounter - Michel Rae CMA - 07/18/2019 10:48 AM CDT 1 year of refills sent earlier this month documented in this encounter Plan of Treatment Care Team Description Date Type Specialty Hortencia Stewart, CARRIE [address] [facility] [address] [place], [place] [id number] 03/31/2020 Office Visit Neurology documented as of this encounter Visit Diagnoses Diagnosis Partial epilepsy with impairment of con sciousness, intractable (HCC) Localization-related (focal) (partial) epilepsy and epileptic syndromes with complex partial seizures, with intractable epilepsy documented in this encounter
--- OUTSIDE RECORDS SUMMARY | 2020-02-11 03:09 | XMS REPORT | Encounter Summary ---
Author Author [facility] Address Unknown Phone Unavailable Care Team Providers Care Dealer Analyst Name Role Phone EldonFreedom correa PCP Reason for Visit * Reason Comments Prior Authorization [employer] Encounter Details Care Team Description Date Type Department Hortencia Stewart, SPIKE DRIVER [address] [facility] [address] [place] [address] [phone] Prior Authorization (B[employer]iact) 07/11/2019 Telephone [facility] ogy [address] [place] [address] Social History Date Tobacco Use Types Packs/Day [...] encounter Miscellaneous Notes * Telephone Encounter - Rosana Singh MA - 07/12/2019 8:09 AM CDT PA for [employer] was approved and also scanned into chart. 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 Completed PA and sent it to Plan. Awaiting response. documented in this encounter Plan of Treatment Care Team Description Date Type Specialty Hortencia Stewart, SPIKE DRIVER [address] [address] [phone] 03/31/2020 Office Visit Neurology documented as of this encounter Visit Diagnoses Not on filedocumented in this encounter
--- OUTSIDE RECORDS SUMMARY | 2020-02-11 03:10 | XMS REPORT | Encounter Summary ---
Author Author [facility] Organization [facility] Address Unknown Phone Unavailable Care Team Providers Care Service Crew Supervisor Name Role Phone EldonFreedom correa PCP Reason for Visit * Auth/Cert Referred By Contact Referred To Contact Status Reason Specialty Diagnoses / Procedures Diagnoses Encephalopathy Encephalopathy Encounter Details Care Team Description Date Type Department Harry Al MD [address] [address] [phone] Hospitalist, Physician Ayla Crowley MD [address] [place] [address] [phone] ERNESTO (acute kidney injury) (HCC); Encephalopathy; COPD with acute exacerbation (HCC); Seizures (HCC) 09/19/2018 [facility] - Encounter [id number] [facility] 09/22/2018 [place] [address] Social History Date Tobacco Use Types Packs/Day Years Used Started: 1986 Current Every Day Smoker Cigarettes 0.75 28 Smokeless Tobacco: Never Used Tobacco Cessation: Ready to Quit: Yes; C ounseling Given: Yes Comments: "I've tried everything there [...] Signs Reading Time Taken Comments Vital Sign 128/65 09/22/2018 11:55 AM CDT Blood Pressure 97 09/22/2018 1:32 PM CDT Pulse 36.7 C (98.1 F) 09/22/2018 11:55 AM CDT Temperature 16 09/22/2018 1:32 PM CDT Respiratory Rate 99% 09/22/2018 1:32 PM CDT Oxygen Saturation - - Inhaled Oxygen Concentration 96.6 kg (213 lb) 09/22/2018 5:00 AM CDT Weight 160 cm (5' 3") 09/19/2018 5:00 PM CDT Height 37.73 09/19/2018 5:00 PM CDT Body Mass Index documented in this encounter Discharge Summaries * Ayla Crowley MD - 09/22/2018 2:13 PM CDT [facility] Hospitalist - Discharge Summary Patient Name: Rajiv Cullen Account No: [id number] Date of : 1970 Date of Admission: 09/19/2018 4:59 PM Date of Discharge: No discharge date for patient encounter. Length of Stay: 3 Days Readmit Risk: 12 Primary Care Physician: Freedom Villarreal MD; Reason for Hospital Admission and Brief Hospital Course: Ms.Angela Ana María Edmondson a 48 y.o.femalewith past medical history of COPD, refractory epilepsy s/p vagal nerve stimulator, JOSE ALBERTO on Bipap, obesity, and depre ssion who was admitted to [facility] on 09/19/18 as transfer from [facility] with acute e ncephalopathy. Presenting symptoms included episodes of hallucination and confus ion. She was lethargic at OSH with SBP in 70s. At OSH lactic acid normal, maggie ramirez had metabolic acidosis on ABG with pH 7.28, PCO2 38; PO2 75 and bicarb 18. N ew ERNESTO. She was treated with IV saline x 3. Reportedly had "grand mal" seizure o n 09/18 and hit her head and back.She also had mixed up her home medications, in appropriately taking medications including narcotics, ibuprofen 600 mg -4 times daily. She received narcan x 2. Transferred to [facility] Ment[facility] improved, oriented x 4. She reported t o staff that she gets increased seizure activity with pain or acute illness. Per records, she was recently treated for COPD exacerbation with prednisone and ant ibiotic. ERNESTO and hyperkalemia improved with IVF. Started on prednisone and azith romycin currently day 4/5 for COPD exacerbation. Hospitalists have assumed prima ry care on transfer out of ICU 09/21. There have been no acute events overnight. In summary: Encephalopathy/altered mental status- secondary to polypharmacy (unintentional) and is now resolved. The patient states that she has returned to her neurologic al baseline. Visual hallucinations - resolved. These were likely attributed to polypharmacy. 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 She is to lerating this well without any adverse side effects. Migraine headaches-she has an appointment to see the [facility] migraine clinic i n the next week or so. The patient was seen and examined by me on the day of her discharge. Her dischar ge plan was discussed fully with the patient. All questions were answered. Disposition: Discharged in stable condition to home. Problems Addressed During This Admission: Principal Problem (Resolved): Encephalopathy Active Problems: Seizures (HCC) COPD with acute exacerbation (HCC) Anxiety Migraine Chronic pain Resolved Problems: ERNESTO (acute kidney injury) (HCC) Tachycardia Hyperglycemia Code Status: Full Code Recommended Diet: Diet - Regular Activity/Restrictions: activity as tolerated, with seizure precautions as per [facility] urology including: The patient understands that state driving laws in [place] and [place] restrict driving for 6 months following an episode of altered awareness, seizures, and/or spells that could prevent control of a vehicle. Additionally, the patient under stands to exercise caution and avoid situations that could be dangerous if a sei zure were to occur such as swimming without a trained youth teacher present, unsuper vised bathing in a bathtub, climbing tall heights or ladders, operating dangerou s machinery or exposure to open heat sources. Also, avoid sleep deprivation, al cohol, and illicit drug use. Call the doctor when: seizures occur more often, seizures become worse, seizure lasts more than 5 minutes, or you experience side effects from your seizure medications. Scheduled Follow Up Appointments/Studies ([facility] Providers): Future Appointments Date Time Provider Department Center 09/28/2018 9:45 AM [facility] MRI 3T [facility] MRI [facility] [place] 10/05/2018 11:00 AM Karmen Miles NP [facility]O [facility] 12/11/2018 11:00 AM Hortencia Stewart APRN [facility]O [facility] Additional Discharge Follow Up: Dr Freedom Villarreal MD, primary care physician in 14 days. Additional Labs Appointments/Diagnostic Studies: None Allergies Allergen Reactions Aspirin Other (See Comments) Interacts with epilepsy meds Tylenol [Acetaminophen] Swelling Tylenol 3; Lips swell and blister Discharge Medications New Medications Indication(s) azithromycin 250 MG tablet Commonly known as: ZITHROMAX 250 mg, Oral, Daily Indication: BRONCHITIS nicotine 21 mg/24 hr Commonly known as: NICODERM CQ 1 patch, Transdermal, Daily Indication: Stop Smoking predniSONE 20 MG tablet Commonly known as: DELTASONE 40 mg, Oral, Daily Indication: bronchitis Medications To Continue Indication(s) ALBUTEROL INHL Inhalation, As needed calcium carbonate-vitamin D3 600 mg(1,500mg) -800 unit Tab 1 tablet, Oral, 3 times daily carvedilol 6.25 MG tablet Commonly known as: COREG 12.5 mg, Oral, 2 times daily Indication: 6.25MG IN AFTERNOON, 12.5MG BID; AM AND PM diphenhydrAMINE 25 mg capsule Commonly known as: BENADRYL 50 mg, Oral, As needed folic acid 1 MG tablet Commonly known as: FOLVITE 1 mg, Oral, Daily Indication: Prevention of Neural Tube Defects when HYDROcodone-acetaminophen 5-325 mg per tablet Commonly known as: NORCO 1 tablet, Oral, Every 4 hours PRN ibuprofen 800 MG tablet Commonly known as: ADVIL,MOTRIN 800 mg, Oral, 3 times daily PRN ipratropium-albuterol 0.5-3 mg/3 mL nebulizer Commonly known as: DUO-NEB 3 mL, Nebulization, 4 times daily PRN lamoTRIgine 200 MG tablet Commonly known as: LaMICtal 200 mg, Oral, 3 times daily LINZESS 145 mcg Cap Generic drug: linaclotide 145 mcg, Oral, Daily medroxyPROGESTERone 150 mg/mL injection Commonly known as: DEPO-PROVERA 150 mg, Intramuscular, Take as directed, Every 6 weeks melatonin 3 mg Tab tablet 3 mg, Oral, Nightly montelukast 10 mg tablet Commonly known as: SINGULAIR 10 mg, Oral, Nightly ondansetron 4 MG tablet Commonly known as: ZOFRAN 4 mg, Oral, Every 8 hours PRN rufinamide 200 MG tablet Commonly known as: BANZEL 1,200 mg, Oral, 2 times daily simvastatin 20 MG tablet Commonly known as: ZOCOR 20 mg, Oral, Nightly SUMAtriptan succinate 11 mg Aepb Nasal SYMBICORT 160-4.5 mcg/actuation inhaler Generic drug: budesonide-formoterol 2 puffs, Inhalation, 2 times daily UNABLE TO FIND Daily, CENTRUM ADULTS TAKING 1 TAB DAILY. venlafaxine 150 mg ER 24 hr capsule Commonly known as: EFFEXOR-XR 225 mg, Oral, Every morning VESICARE 10 MG tablet Generic drug: solifenacin 5 mg, Oral, Daily Stopped Medications oxyCODONE 5 MG immediate release tablet Commonly known as: ROXICODONE prochlorperazine 10 MG tablet Commonly known as: COMPAZINE Vital Signs at the time of discharge: Blood Pressure: BP: 128/65 Pulse: Pulse: 97 Temperature: Temp: 36.7 C (98.1 F) Respirations: Resp: 16 Admission Weight: Weight: 91.2 kg (201 lb 1 oz) O2 Saturation: SpO2: 99 % Discharge Weight: Weight: 96.6 kg (213 lb) BMI: Body mass index is 37.73 kg/m. Physical Exam Patient appears well Lungs clear with decreased BS CV RRR Neuro awake, alert, speech fluent. FTN normal No drift Labs - Last 36 hours: Recent Results (from the past 36 hour(s)) Basic Metabolic Panel Collection Time: 09/21/18 6:45 AM Result Value Ref Range Sodium 144 133 - 147 MEQ/L Potassium 3.6 3.5 - 5.3 MEQ/L Chloride 117 (H) 96 - 112 MEQ/L Carbon Dioxide 23 20 - 32 MEQ/L Anion Gap 4 (L) 5 - 17 Calcium 8.4 8.4 - 10.5 mg/dL Glucose 112 (H) 70 - 100 mg/dL Blood Urea Nitrogen 15 7 - 26 mg/dL Creatinine 0.8 0.4 - 1.1 mg/dL GFR Female AA 92 60 - 200 GFR Female Non-AA 77 60 - 200 Complete Blood Count Collection Time: 09/21/18 6:45 AM Result Value Ref Range WBC 10.56 4.00 - 11.00 TH/uL RBC 3.96 (L) 4.00 - 5.00 MIL/uL Hemoglobin 11.9 (L) 12.0 - 15.0 g/dL Hematocrit 36 36 - 45 % MCV 91 80 - 99 fL MCH 30 27 - 34 pg MCHC 33 32 - 36 % RDW 14.2 9.0 - 14.5 % Platelet Count 203 140 - 400 TH/uL MPV 10.5 9.4 - 12.3 fL Nucleated RBCs 0 0 - 0 /100 Hemoglobin A1C Collection Time: 09/21/18 6:45 AM Result Value Ref Range Hemoglobin A1C 6.1 (H) 4.0 - 5.6 % GLUCOSE POC Collection Time: 09/21/18 11:24 AM Result Value Ref Range Glucose POC 196 (H) 70 - 100 mg/dL GLUCOSE POC Collection Time: 09/21/18 4:13 PM Result Value Ref Range Glucose POC 184 (H) 70 - 100 mg/dL GLUCOSE POC Collection Time: 09/21/18 8:55 PM Result Value Ref Range Glucose POC 124 (H) 70 - 100 mg/dL GLUCOSE POC Collection Time: 09/22/18 7:59 AM Result Value Ref Range Glucose POC 105 (H) 70 - 100 mg/dL GLUCOSE POC Collection Time: 09/22/18 11:53 AM Result Value Ref Range Glucose POC 212 (H) 70 - 100 mg/dL Imaging during this encounter: Xr Chest Single View Frontal Result Date: 09/20/2018 No acute cardiopulmonary process READING SITE: [facility] Cardiac Studies during this encouter: No results found. Additional Studies: None Procedures: see above Time spent on this inpatient discharge was less than or equal to 30 minutes. Ayla Crowley MD [facility] Please page through physician paging. . documented in this encounter Medications at Time of Discharge Start Date End Date Medication Sig Dispensed Refills ALBUTEROL INHL Inhale 2 0 puffs every 4 (four) hours as needed. budesonide-formoterol Inhale 2 0 (SYMBICORT) 160-4.5 puffs [...] 0 hr tablet by mouth every morning. 09/23/2018 09/24/2018 azithromycin (ZITHROMAX) Take 1 tablet 1 tablet 0 250 MG tabletIndications: (250 mg BRONCHITIS total) by mouth daily. 12/11/2019 carvedilol (COREG) 12.5 Take 12.5 mg 0 MG tabletIndications: D/C by mouth 3 (three) times a day. 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 12/11/2018 melatonin 3 mg Tab tablet Take 3 mg by 0 mouth nightly. 09/23/2018 12/11/2018 nicotine (NICODERM CQ) 21 Place 1 patch 28 patch 0 mg/24 hrIndications: on the skin smoking cessation daily. 09/23/2018 04/03/2019 predniSONE (DELTASONE) 20 Take 2 2 tablet 0 MG tabletIndications: tablets (40 bronchitis mg total) by mouth daily. 08/31/2018 12/11/2018 rufinamide (BANZEL) 200 Take 6 1080 tablet 3 MG tabletIndications: tablets Partial epilepsy with (1,200 mg impairment of total) by consciousness, mouth 2 (two) intractable (HCC) times a day. 04/03/2019 SUMAtriptan succinate 11 Use in each 0 mg AePB nostril. documented as of this encounter Progress Notes * Malathi Park RN [employer]TER - 09/21/2018 10:03 AM CDT [facility] Hospitalist - Progress Note Patient Name: Rajiv Cullen Account No: [id number] Date of : 1970 Date of Admission: 09/19/2018 4:59 PM Subjective Follow up regarding acute encephalopathy HPI: Ms. Rajiv Cullen is a 48 y.o. female with past medical history of COPD , refractory epilepsy s/p vagal nerve stimulator, JOSE ALBERTO on Bipap, obesity, and dep ression who was admitted to [facility] on 09/19/18 as transfer from [facility] with acute encephalopathy. Presenting symptoms included episodes of hallucination and conf usion. She was lethargic at OSH with SBP in 70's. At OSH lactic acid normal, h owever had metabolic acidosis on ABG with pH 7.28, PCO2 38; PO2 75 and bicarb 18 . New ERNESTO. She was treated with IV saline x 3. Reportedly had "grand mal" seizur e on 09/18 and hit her head and back.She also had mixed up her home medications, inappropriately taking medications including narcotics, ibuprofen 600 mg -4 anita es daily. She received narcan x 2. Transferred to [facility] Ment[facility] improved, oriented x 4. She reported to staff burke t she gets increased seizure activity with pain or acute illness. Per records, s he was recently treated for COPD exacerbation with prednisone and antibiotic. AK I and hyperkalemia improved with IVF. Started on prednisone and azithromycin for COPD exacerbation. Hospitalists have assumed primary care on transfer out of [facility]. Review of Systems Constitutional: Negative for chills, fever and weight loss. HENT: Positive for congestion. Eyes: Negative for blurred vision and double vision. Respiratory: Positive for cough and shortness of breath. Cardiovascular: Negative for chest pain and leg swelling. Gastrointestinal: Negative for abdominal pain, heartburn, nausea and vomiting. Genitourinary: Negative for dysuria. Musculoskeletal: Positive for myalgias. Skin: Negative for rash. Neurological: Negative for dizziness and headaches. Endo/Heme/Allergies: Negative for polydipsia. Psychiatric/Behavioral: The patient is nervous/anxious. All other systems reviewed and are negative. Objective Vital Signs: Temp: 36.7 C (98 F) Pulse: (!) 103 Resp: 20 BP: 118/53 SpO2: 99 % Height: 160 cm (5' 3") Weight: 96.8 kg (213 lb 6.5 oz) I/O last 24 Hours: In: 720 [P.O.:720] Out: 1750 [Urine:1750] Physical Exam Constitutional: She is oriented to person, place, and time. She appears well-dev eloped and well-nourished. HENT: Head: Normocephalic and atraumatic. Mucous membranes moist Eyes: Pupils are equal, round, and reactive to light. Neck: Neck supple. Cardiovascular: Tachycardic, regular; no murmur Pulmonary/Chest: Scattered expiratory wheezing Abdominal: Soft. Bowel sounds are normal. There is no tenderness. Musculoskeletal: She exhibits no edema. Neurological: She is alert and oriented to person, place, and time. No cranial n erve deficit or sensory deficit. Skin: Skin is warm and dry. No erythema. Psychiatric: Flat affect Nursing note and vitals reviewed. I have personally reviewed the patient's vital signs, laboratory/pathology/cultu re results (as indicated), imaging studies (results were not discussed with the performing provider), ECG, current inpatient medications, benefits consultant notes, supp ort staff notes, prior admission/outpatient notes, prior to admission medication s and outside medical records with pertainent findings noted within the assessme nt/plan. Assessment/Plan Ms. Rajiv Cullen is a 48 y.o. female who was admitted on 09/19/2018 with acu te encephalopathy. Problems addressed with today's visit include: * Encephalopathy improved Considerations include Polypharmacy vs seizure vs metabolic -consult epilepsy for seizure recommendations -consult SW for discharge planning (assistance with medications) ERNESTO (acute kidney injury) (HCC) Cr 2 at OSH (was 0.9 11 days prior) Improved with IVF to 0.8; likely prerenal --Avoid nephrotoxic agents including IV contrast, NSAID's, ACEi's, & ARB's --Keep MAP>65 to maintain adequate renal perfusion. COPD with acute exacerbation (HCC) Increase in sputum amt and color CXR neg, Resp Viral panel neg; Flu vaccine given Jul 2018 -Azithromycin and prednisone 40mg po -Neb treatment -Continue Breo (substituted for Symbicort) and singulair -tobacco cessation discussed and encouraged; recently stopped chantix due to low ering seizure threshold Seizures (HCC) Recent increase in Banzel 08/31/18 by [facility] neurology -consult epilepsy for recommendations for recent increase in seizure activity -Continue home anticonvulsants-Banzel and lamotrigine -Seizure precautions Tachycardia Likely COPD exacerbatio contibuting -Continue Coreg and monitor Anxiety Mood stable -Continue Effexor Hyperglycemia Likely steroid induced -SSI for elevations -check hgb A1c Chronic pain Back pain, migraines Polypharmacy, mistaken dosing of medication thought contributed to admission -Allergies to ASA and Acetaminophen -Discontinue NSAIDS due to ERNESTO Prior to admission Migraine No current symptoms -Avoid narcotics -continue sumatriptan See my orders for additional details regarding this patients treatment plan. Room: [place] [address] Diet: Diet-Regular Code Status: Full Code VTE Prevention: Appropriate VTE orders and/or documentation has been completed for this patient. Chiang Catheter: Chiang catheter is currently in place. See assessment/plan above for documentation regarding the appropriateness of its use. Scheduled Meds: azithromycin 250 mg Oral Daily carvedilol 12.5 mg Oral BID famotidine 20 mg Oral Q12H fluticasone 1 spray Each Nare Daily heparin (porcine) 5,000 Units Subcutaneous Q8H insulin lispro 2-7 Units Subcutaneous 4 times daily before meals and nightl y ipratropium-albuterol 3 mL Inhalation 4x daily lamoTRIgine 200 mg Oral TID melatonin 3 mg Oral Nightly montelukast 10 mg Oral Nightly nicotine 1 patch Transdermal Daily pravastatin 40 mg Oral Nightly predniSONE 40 mg Oral Daily rufinamide 1,200 mg Oral BID venlafaxine 225 mg Oral QAM Continuous Infusions: PRN Meds: bisacodyl, calcium chloride IVPB in 100 mL, dextrose 50% OR dextrose OR dextrose 10%, docusate sodium, glucagon OR glucagon, magnesium sulfate, onda nsetron, polyethylene glycol, potassium chloride, prochlorperazine OR prochl orperazine OR prochlorperazine, senna-docusate, sodium phosphate, SUMAtripta n Malathi Park RN APRN [facility] Please page through physician paging. . * Harry Al MD - 09/20/2018 6:29 AM CDT Pulmonary/Critical Care ICU Follow-up Note NAME: Rajiv Cullen ADMISSION DATE: 09/19/2018 CHIEF COMPLAINTS Encephalopathy HOSPITAL COURSE Ms. Cullen is a 48-year-old female with refractory epilepsy status post VNS on mebendazole and lamotrigine, obesity, JOSE ALBERTO on BiPAP at night, COPD not on oxygen at home, depression who presented to [facility] ICU on 09/19/2018 as a transfer from [facility] with acute encephalopathy. Upon presentation outside facility patient was lethargic with systolic blood pressures in the 70s that responded to 3 L of IV fluids. There is some concern over patient inappropriately taking medicatio ns at home. She was given Narcan IV x2. Mentation improved. Workup at outside facility was notable for metabolic acidosis with a pH of 7.28, PCO2 of 38, PO2 75 and bicarb 18 on room air on ABG. He also had a new onset HPI with creatinin e above 2 where her baseline is 0.8. CT had an outside facility per report was negative for acute intracranial pathology. Chest x-ray was negative for acute p ulmonary pathology. She did not have any leukocytosis or lactate was normal. U A normal. She was transferred to [facility] ICU for higher level of care. Upon presentation to [facility], patient was alert and oriented x4. She was vit ally stable. 09/19/18 - hyperkalemia resolved with IVF; ERNESTO improving; started on COPD Exacer bation treatment (pred/azithro) EVENTS OVER LAST 24 HOURS Over the last 24 hours: ERNESTO improving Hyperkalemia resolved Tolerated bipap overnight No new issues or concerns Awake and alert. Breathing is also improved. No cough this am. Past medical, social, and family histories were reviewed from previous records a nd are unchanged. ROS: GENERAL: Denies fatigue, weakness, fevers, chills, INTEGUMENTARY: Denies pruritis, rashes, sores HEENT: Reports chronic congestion, hoarse voice. Denies headaches, nausea, vomit ing, vision/hearing changes, sore throat, CARDIAC: Denies chest pain, palpitations PULM: Reports cough with productive sputum. Denies cough, shortness of breath GI: Denies dysphagia, reflux, abdominal pain, constipation, diarrhea, hematemesi s/hematochezia/melena : Denies dysuria, increased frequency/urgency, hematuria, MSK: Denies muscle weakness, pain NEURO: Denies loss of sensation/numbness/tingling, tremors, PSYCH: Denies issues with mood/anxiety/depression MEDICATIONS azithromycin 250 mg Oral Daily carvedilol 12.5 mg Oral BID famotidine 20 mg Oral Q12H fluticasone-vilanterol 1 puff Inhalation Daily heparin (porcine) 5,000 Units Subcutaneous Q8H ipratropium-albuterol 3 mL Inhalation 4x daily lamoTRIgine 200 mg Oral TID melatonin 3 mg Oral Nightly pravastatin 40 mg Oral Nightly predniSONE 40 mg Oral Daily rufinamide 1,200 mg Oral BID venlafaxine 225 mg Oral QAM lactated Ringers 75 mL/hr (09/20/18 0500) VITALS BP 139/65 | Pulse (!) 112 | Temp 36.8 C (98.3 F) (Oral) | Resp (!) 36 | Ht 1.6 m (5' 3") | Wt 91.8 kg (202 lb 6.1 oz) | SpO2 98% | BMI 35.85 kg/m Intake/Output Summary (Last 24 hours) at 09/20/18 0629 Last data filed at 09/20/18 0500 Gross per 24 hour Intake 1031.74 ml Output 3670 ml Net -2638.26 ml EXAM General Appearance: Alert, cooperative, no distress Neurologic: No focal deficits Neck: Supple, symmetrical, trachea midline, no adenopathy; Respiratory: Airway: Not Intubated Lungs: Clear to auscultation bilaterally Heart: Tachycardic. Regular rhythm Abdomen: Soft, non-tender, bowel sounds active, no masses, no organomegaly Genitourinary: No Chiang Extremities: Extremities normal, no edema Pulses/Perfusion: 2+ radial and dorsalis pedis pulses, extremities are warm to touch Skin: No rashes or lesions Invasive Lines: None Chest Tubes/Drains: None LABS No lab components to display Most Recent Result within the last 7 days Lab Units 09/20/18 0100 09/19/18 1820 SODIUM MEQ/L 141 141 POTASSIUM MEQ/L 4.2 4.3 CHLORIDE MEQ/L 118* 115* CARBON DIOXIDE MEQ/L 17* 17* BLOOD UREA NITROGEN mg/dL 22 25 CREATININE mg/dL 1.2* 1.6* GLUCOSE mg/dL 165* 86 CALCIUM mg/dL 8.5 8.9 No lab components to display Most Recent Result within the last 7 days Lab Units 09/20/18 0100 WBC TH/uL 12.23* HEMOGLOBIN g/dL 12.1 HEMATOCRIT % 36 PLATELET COUNT TH/uL 193 No lab components to display No results found for: PROCALCIT No results found for this or any previous visit. No results found for this or any previous visit. No results found for this or any previous visit. Most Recent Result within the last 7 days Lab Units 09/19/18 1705 GLUCOSE POC mg/dL 88 IMAGING I reviewed the following images CXR 09/20/18 ICU ISSUES D-Delirium assessment CAM-ICU: neg E-Early Mobility/PT: Early mobility F-Feeding: Regular diet Peptic Ulcer Disease Prophylaxis: pepcid DVT Prophylaxis: Heparin SQ Glycemic Control (140-180 mg/dL):at goal Catheter discontinuation (CVC, arterial, urinary, gastric, rectal): n/a Antibiotics: azithromycin (09/19/18-) Steroids: prednisone 40 mg (09/19/18-) MAR review (pain, anxiety, constipation..):PRN available Code status: FULL LOS: 1 ASSESSMENT 1. Acute encephalopathy - Resolved. Likely medication induced vs post ictal 2. Refractory epilepsy s/p VNS 3. Acute COPD exacerbation 4. JOSE ALBERTO on Bipap 5. ERNESTO - improving 6. Hyperkalemia - resolved 7. Metabolic Acidosis PLAN Seizure precautions Pred 40 daily + azithro for 5 day course Duonebs QID Bipap at night Continue home anti epileptics Encourage PO intake. Stop IVF Avoid NSAIDs Stable for transfer to floor. Will consult hospitalist to assume primary, we will S/O, once seen by hospitalist. David Simpson MD, 09/20/2018, 6:29 AM Pulmonary/CCM staff follow-up for acute encephalopathy, ERNESTO. I have seen and examined the patient. I have reviewed the resident's note. I agree with the resident's findings, assessment, and plan. * Sirisha Cedillo PharmD - 09/20/2018 5:22 AM CDT Pharmacy Note: Patients Own Medication A prescriber has ordered Medication: Banzel (rufinamide) dose: 1200 mg route: by mouth frequency: twice daily to be continued during this patient's hospital sta y. This non-formulary medication was prescribed prior to admission and is not on [facility] hospital formulary or doesn't have an approved therapeutic interchange. Contin uation of the medication is necessary for this acute visit per the inpatient pre scriber. Pharmacy has identified and labeled the medication for in-hospital administratio n and confirm that, to the best of our knowledge, the medication is in date and has not been altered or misbranded. The medication must be returned to the patient upon discharge. Sirisha Cedillo PharmD documented in this encounter H&P Notes * Harry Al MD - 09/19/2018 2:35 PM CDT CRITICAL CARE ADMISSION NOTE NAME: Rajiv Cullen AGE: 48 y.o. : 1970 ADMISSION DATE: (Not on file) PRIMARY CARE PROVIDER: Freedom Villarreal MD ATTENDING PHYSICIAN: Harry Al MD CHIEF COMPLAINT Encephalopathy HISTORY OF PRESENT ILLNESS Ms Cullen is a 48 yo F with h/o refractory epilepsy s/p VNS on Banzel and lamot rigine, obesity, JOSE ALBERTO on Bipap at night, COPD, depression who presents to [facility] ICU as a transfer from [place] for Acute encephalopathy. Per documentation, margarito sierra was brought in by her daughter after having episodes of hallucination and c onfusion. Further, she was apparently lethargic upon presentation. She did hav e blood pressures 70s systolic as well although her initial BP was normal with s ystolic in 120's per ED notes at OSH as is documented in care everywhere. Lacti c acid was normal. She did have a metabolic acidosis as per ABG (pH 7.28, PCO2 38, PO2 75, bicarb 18 on room air). She had a new onset ERNESTO. Patient was given a normal saline bolus 1 L x3. There was some concern over the patient inappropr iately taking medications including narcotics. She received IV Narcan x2. Upon presentation to [facility] ICU, patient is alert and oriented x4. She states that she may have confused her medications over the past week. She also reports increased seizure activity over the last couple days. She states t hat she gets the seizure-like activity when she has increased pain or when she h as acute illness. Per documentation, patient was getting treatment for COPD exa cerbation (prednisone + antibiotic) prior to being seen in the ED at outside [facility]. Patient reports having seizure-like activity today where she could not v erbalize or say anything towards people she recognized. She also reports previo us history of grand mal seizures. She states that yesterday she had a fall from seizure where she fell on her right side. She denies hitting her head. She re ports postictal confusion. Currently, patient reports increased cough over the past week with change in spu dariana color. She denies any fevers, chills, chest pain, abdominal pain, diarrhea, dysuria, increased frequency of urination or hematuria. Of note, patient states that she has been taking 4x 600 mg motrin/ibuprofen amanda y over the past week for pain stemming from falls and has been taking chantix re cently. OSH notable studies: CT head neg for acute intracranial pathology CXR neg for acute pulmonary pathology BMP: ERNESTO, Hyperkalemia CBC: no leukocytosis Lactate normal UDS: neg UA: normal PAST MEDICAL HISTORY Past Medical History: Diagnosis Date Allergic rhinitis seasonal allergies Arthritis Back pain Chronic constipation Chronic headaches on meds for these Depression Difficulty falling asleep at night until in store representative hours Difficulty staying asleep Exercise tolerance finding limited by leg pain--if walking a long way will use electric cart in grocery st ore Fractures from seizures--leg and ankle fractures in past Head injury concussions from seizures--since age 21 HL (hearing loss) left ear [place]-no hearing aides Kidney stones Migraine Osteoarthritis mainly ankles and knees and wrists and back Osteopenia Rapid heart rate reason for coreg Seizures (HCC) Sinusitis possibly--history of sinus infections Visual impairment wears glasses PAST SURGICAL HISTORY [...] PROGRAMING; Reyna geon: Sj Vivar MD; Location: [facility] Main OR; Service: ENT; Laterality : N/A; TUBAL LIGATION 1992 PRIOR TO ADMISSION MEDICATIONS Percocet 5-325 mg Tessalon 100 mg TID Xanax 0.25 mg qHS PRN Banzel 800 mg BID Folvite 400 mcg qD Zocor 20 mg qD Coreg 6.25 mg qD [place] 5-325 mg q4H PRN Ibuprofen/motrin 600 mg Effexor 150 mg qD Lamictal 200 mg TID Symbicort 2 puffs BID ALLERGIES Aspirin and Tylenol [acetaminophen] FAMILY HISTORY Patient denies any family history of lung disease or thromboembolic disease. Family History Problem Relation Age of Onset Hyperlipidemia Mother Migraines Mother Hyperlipidemia Father Diabetes Father Alcohol abuse Father Heart disease Other FAMILY HX Heart disease Other FAMILY HX Rheum arthritis Other FAMILY HX Migraines Cousin SOCIAL HISTORY Smoking: Smoked 1 packs per day for 30+ years. Current smoker. Alcohol: Denies Drug use: denies REVIEW OF SYSTEMS REVIEW OF SYSTEMS: Const: Negative for fever, chills, unintentional weight loss or weight gain. HENT: Difficulty hearing. Negative for changes in tinnitus, nose bleeds or sore throat Eye: Negative for blurred vision, diplopia, light sensitivity Respiratory: Reports cough with productive sputum. Dark sputum. Negative for sh ortness of air, dyspnea on exertion Cardiovascular: Negative for chest pain, palpitations, PND or syncope Gastrointestinal: Negative for nausea, vomiting, diarrhea, constipation or abdo jessica pain Genitourinary: Negative for dysuria, hematuria, frequency or hesitancy Musculoskeletal: Reports joint and muscle pain. Right flank/rib pain. Skin: Negative rash, hives or lesions Neurological: Negative for focal weakness or numbness, vertigo, or memory loss Hematological: Negative for bruising, bleeding or anemia All other systems negative. VITALS BP 107/71 | Pulse 96 | Temp 36.3 C (97.3 F) (Axillary) | Resp 21 | Ht 1. 6 m (5' 3") | Wt 91.2 kg (201 lb 1 oz) | SpO2 100% | BMI 35.62 kg/m No intake or output data in the 24 hours ending 09/19/18 1435 EXAM BP 107/71 | Pulse 96 | Temp 36.3 C (97.3 F) (Axillary) | Resp 21 | Ht 1. 6 m (5' 3") | Wt 91.2 kg (201 lb 1 oz) | SpO2 100% | BMI 35.62 kg/m General Appearance: Alert, cooperative, no distress Neurologic: Normal strength and sensation throughout, CN 2-12 in tact. No foca l deficits Neck: Supple, symmetrical, trachea midline, no adenopathy; no JVD Respiratory: Airway: Not Intubated Lungs: bilateral expiratory wheezing Heart: Regular rate and rhythm, S1 and S2 normal, no murmur, rub or gallop Abdomen: Soft, non-tender, bowel sounds active all four quadrants, Genitourinary: No Chiang Extremities: Extremities normal, no edema Pulses/Perfusion: 2+ pulses radial and dosalis pedis, warm and well perfused Skin: No rashes or lesions Invasive Lines: None Chest Tubes/Drains: None LABS No lab components to display No lab components to display No lab components to display No lab components to display No results found for this or any previous visit. No results found for this or any previous visit. No results found for this or any previous visit. No lab components to display IMAGING No results found. ICU ISSUES D-Delirium assessment CAM-ICU: neg E-Early Mobility/PT: Seizure precautions F-Feeding: Regular diet Peptic Ulcer Disease Prophylaxis: pepcid DVT Prophylaxis: Heparin SQ Glycemic Control (140-180 mg/dL): will monitor Catheter discontinuation (CVC, arterial, urinary, gastric, rectal): None Antibiotics: Azithromycin Steroids: Prednisone 40 mg MAR review (pain, anxiety, constipation..):PRN available Code status: FULL LOS: 0 ASSESSMENT 1. Acute encephalopathy - resolved. Ddx: medication induced: antiepiletic/chanti x vs post ictal vs metabolic 2. Refractory Epilepsy s/p VNS - on lamictal and recently increased benazel 3. Acute COPD exacerbation 4. JOSE ALBERTO on Bipap 5. ERNESTO - ddx: prerenal hypovolemic vs NSAID vs rhabdomyolysis. Baseline Cr 0.8 6. Hyperkalemia - likely 2/2 ernesto 7. Metabolic Acidosis PLAN Seizure precautions Prednisone 40 mg daily + azithromycin for 5 days Duonebs QID AM CXR IVF Repeat BMP Bipap at night EKG to eval QTc Electronically signed by David Simpson MD 09/19/2018 Pulmonary/CCM staff I have seen and examined the patient. I have reviewed the resident's note. I a gree with the resident's findings, assessment, and plan. I have personally reviewed Outside records via care every where. documented in this encounter Consult Notes * Fabrizio Smith, SECURITY OFFICER - 09/21/2018 11:59 AM CDT Associated Order(s): IP CONSULT TO EPILEPSY [facility] EPILEPSY Consultation Patient Name: Rajiv Cullen Age: 48 y.o. Sex: female Code Status: Full Code Admit Date: 09/19/2018 Length of Stay: 2 Days Admitting Physician: Harry Al MD Consulting staff: Malathi Park Date of consultation: 09/21/2018 Reason for consultation: encephalopathy; ?seizure related HISTORY OF PRESENT ILLNESS Rajiv Cullen is a 48 y.o. right-handed female who is a well-known patient to our epilepsy clinic and last saw Hortencia Stewart on 08/31/18. She has a significant history of obstructive sleep apnea requiring BiPAP, depression, anxiety, COPD, chronic back pain, migraine headaches, s/p VNS, and cryptogenic refractory gener alized epilepsy diagnosed at age 21. She has 2 different types of seizures one being generalized tonic-clonic seizures without warning, and the other being sta ring spells without an aura. Previous workups for her epilepsy have included pha se 1 EEG monitoring, but a clear seizure focus could not be found. She has had a brain MRI in the past that showed bifrontal encephalomalacia worse over the ri ght frontal region likely due to to her phase 2 invasive monitoring that she has had in the past. Previous AED regimens have included Dilantin, Tegretol, phenobarbital, Depakote, Potiga, and levetiracetam. Topamax was attributed with kidney stones and it is unclear if she has tried Vimpat in the past. She has not tried zonisamide. Within the last year, her seizure regimen consisted of lamotrigine 200 mg 3 time s daily with the addition of Banzel which has made an improvement of her seizure frequency. Most recently in early August 2018, Banzel was increased to 1200 m g twice daily without any noticeable change in her seizure frequency. She denie s any adverse side effects of the medication and feels that she is tolerating it well. Around that time, the patient was taking Chantix for smoking cessation w hich may have been contributing to her seizure frequency. This has been recentl y discontinued. Of note, the patient was being treated for an upper respiratory infection with Cefdinir on 09/14/18. On 09/19/18, the patient was transferred to [facility] after experienci ng confusion and visual hallucinations described as bugs crawling on the wall af ter inappropriately taking medications the previous day. Per patient report, he r cat knocked over her pill box causing all of her medications to fall on the fl oor. After trying to sort them out, she may have incorrectly sorted them and in gested more of her medications including narcotics. This was unintentional per p atient. There was also concern that she took some of her daughter's oral morphin e that was left over from a previous surgery. That same day, she thinks she petit d an unwitnessed seizure in the kitchen causing her to fall. It is unclear if s he hit her head or not, but CT head without contrast did not show any evidence o f acute intracranial abnormalities. It noted a chronic right frontal infarct an d status post frontal craniotomy. After being transferred to [facility], she was found to have acute COPD exacerbation, acute kidney insufficiency, an d metabolic acidosis. Records indicate that her encephalopathy resolved that . Epilepsy was consulted on 09/21/18 for further evaluation of her enceph alopathy and whether it was seizure related. Upon further questioning, the shameka ent states that she is back to her neurological baseline and denies any new onse t neurological symptoms including numbness/tingling, visual changes, or dizzines s. She does complain of having on of her typical migraines and states that she has an appointment with our outpatient headache clinic in the next week or so. She denies missing any doses of her seizure medications and understands the impo rtance of compliance. She states that she is currently tolerating the Banzel do se of 1200 mg twice daily. REVIEW OF SYSTEMS Review of Systems: A 10-point ROS is negative with the exception of pertinent positives as noted ab vazquez in HPI. PAST MEDICAL HISTORY Past Medical History: Diagnosis Date Allergic rhinitis seasonal allergies Anxiety Arthritis Back pain Chronic constipation COPD (chronic obstructive pulmonary disease) (HCC) Depression Difficulty falling asleep at night until in store representative hours Difficulty staying asleep Exercise tolerance finding limited by leg pain--if walking a long way will use electric cart in grocery st ore Fractures from seizures--leg and ankle fractures in past Head injury concussions from seizures--since age 21 HL (hearing loss) left ear [place]-no hearing aides Kidney stones Migraine JOSE ALBERTO on CPAP Osteoarthritis mainly ankles and knees and wrists and back Osteopenia Rapid heart rate reason for coreg Seizures (HCC) Sinusitis possibly--history of sinus infections Visual impairment wears glasses PAST SURGICAL HISTORY [...] PROGRAMING; Reyna geon: Sj Vivar MD; Location: [facility] Main OR; Service: ENT; Laterality : N/A; TUBAL LIGATION 1992 FAMILY HISTORY Family History [...] Problems Son No Known Problems Brother SOCIAL HISTORY Social History Social History Marital status: Spouse [...] is father Dayton Mireles Code status: FULL MEDICATION Current Facility-Administered Medications Medication Dose Route Frequency Provider Last Rate Last Dose azithromycin (ZITHROMAX) tablet 250 mg 250 mg Oral Daily Santos Liu MD 250 mg at 09/21/18 0908 bisacodyl (DULCOLAX) suppository 10 mg 10 mg Rectal Daily PRN Santos portillo MD calcium chloride 2,000 mg in sodium chloride 0.9 % (NS) 100 mL IVPB 2,000 m g Intravenous PRN Santos Liu MD carvedilol (COREG) tablet 12.5 mg 12.5 mg Oral BID Marija Hamilton APRN 12 .5 mg at 09/21/18 0908 dextrose 50% (D50W) syringe 25-50 mL 25-50 mL Intravenous PRN Malathi gomez RN APRN Or dextrose (D50W) 50 % injection 25-50 mL 25-50 mL Intravenous PRN Malathi suggs RN APRN Or dextrose 10% (D10W) bolus 125-250 mL 125-250 mL Intravenous PRN Malathi rome RN APRN docusate sodium (COLACE) capsule 100 mg 100 mg Oral BID PRN Santos cleary MD famotidine (PEPCID) tablet 20 mg 20 mg Oral Q12H Santos Liu MD 20 mg at 09/21/18 0908 fluticasone (FLONASE) 50 mcg/actuation nasal spray 1 spray 1 spray Each Dharmesh e Daily Malathi Park RN APRN glucagon (GLUCAGEN) injection 1 mg 1 mg Intramuscular PRN Shama Carter APRN Or glucagon (GLUCAGEN) injection 1 mg 1 mg Subcutaneous PRN Malathi Park RN APRN heparin (porcine) 5,000 unit/mL injection 5,000 Units 5,000 Units Subcutane ous Q8H Sanots Liu MD 5,000 Units at 09/21/18 0536 insulin lispro (HumaLOG) injection 2-7 Units 2-7 Units Subcutaneous 4 times daily before meals and nightly Malathi Park RN APRN ipratropium-albuterol (DUO-NEB) 0.5-3 mg/3 mL nebulizer solution 3 mL 3 mL Inhalation 4x daily Santos Liu MD 3 mL at 09/21/18 1132 lamoTRIgine (LaMICtal) tablet 200 mg 200 mg Oral TID Marija Hamilton APRN 200 mg at 09/21/18 0909 magnesium sulfate IVPB 4 gram (premix) 4 g Intravenous PRN Santos anderson MD melatonin tablet 3 mg 3 mg Oral Nightly Marija Hamilton APRN 3 mg at 09/20 montelukast (SINGULAIR) tablet 10 mg 10 mg Oral Nightly ELVIRA Barry RN 10 mg at 09/20/182041 nicotine (NICODERM CQ) 21 mg/24 hr 1 patch 1 patch Transdermal Daily Phyllis Tinoco RN APRN 1 patch at 09/21/18 0909 ondansetron (ZOFRAN) injection 4 mg 4 mg Intravenous Q6H PRN Santos mejia MD polyethylene glycol (GLYCOLAX) packet 17 g 17 g Oral Daily PRN Santos jane MD potassium chloride (KLOR-CON) CR tablet 20-60 mEq 20-60 mEq Oral PRN Darren Liu MD pravastatin (PRAVACHOL) tablet 40 mg 40 mg Oral Nightly Marija Hamilton APRN 40 mg at 09/20/182041 predniSONE (DELTASONE) tablet 40 mg 40 mg Oral Daily Santos Liu MD 40 mg at 09/21/18 0908 prochlorperazine (COMPAZINE) injection 5-10 mg 5-10 mg Intravenous Q4H PRN Santos Liu MD Or prochlorperazine (COMPAZINE) injection 5-10 mg 5-10 mg Intramuscular Q4H FL N Santos Liu MD Or prochlorperazine (COMPAZINE) suppository 25 mg 25 mg Rectal Q12H PRN Darren Liu MD rufinamide (BANZEL) tablet 1,200 mg 1,200 mg Oral BID Marija Hamilton APRN 1,200 mg at 09/20/18 2100 senna-docusate (PERICOLACE) 8.6-50 mg 1 tablet 1 tablet Oral BID PRN Darren Liu MD sodium phosphate 30 mmol in dextrose (D5W) 5 % 150 mL IVPB 30 mmol Intraven ous PRN Santos Liu MD venlafaxine (EFFEXOR-XR) 24 hr capsule 225 mg 225 mg Oral QAM Marija Hamilton APRN Stopped at 09/21/18 0600 ALLERGIES Allergies Allergen Reactions Aspirin Other (See Comments) Interacts with epilepsy meds Tylenol [Acetaminophen] Swelling Tylenol 3; Lips swell and blister PHYSICAL EXAMINATION Intake/Output Summary (Last 24 hours) Gross per 24 hour Intake 560 ml Output 0 ml Net 560 ml Temp: [36.8 C (98.2 F)-37.6 C (99.6 F)] 37.1 C (98.8 F) Pulse: [102-127] 103 Resp: [14-26] 20 BP: (119-148)/(45-64) 143/64 FiO2 (%): [21 %] 21 % PHYSICAL EXAM: General: Ms. Cullen is a generally healthy appearing patient in no acute distress. Head: Oropharynx clear. Head normocephalic, atraumatic. Cardiac: Regular rate and rhythm. Lungs: Labored breathing noted. Extremities: No edema or clear skin lesions noted. Neuro: Mental status: Awake and alert lying in bed. Patient oriented to self, place, and time. General fund of knowledge and recent and remote memory appear intact based on subjective data/history provided. The patient is attentive and able to cooperate with exam. Patient follows multi-step commands Speech is fluent with normal articulation. Language has intact comprehension and repetition Language content appears appropriate based on conversation. Pupils are equal, round, and reactive to light directly and consensually. Optic disc margins appear sharp bilaterally Gaze conjugate Visual cohen are intact to confrontation in all quadrants. Both eyes tested simultaneously. Extraocular eye movements are full without nystagmus. Face appears symmetric at rest and with muscle activation. Hearing grossly intact. Tongue is normal in appearance and protrudes in the midline. Spontaneous palate movement noted. Shoulder shrug is full Muscle bulk is normal throughout. Muscle tone is normal Strength on confrontational testing is 5/5 with flexion/extension in proximal and distal muscle groups in all four extremities. There was some giveaway weak ness with her right lower extremity, but I could elicit full strength after prom pting. No pronator drift. No asterixis No adventitious movements. Finger to nose testing normal without dysmetria. Rapid alternating movements in the upper extremities (finger tapping) are nor mal Reflexes (right/left): 1. Biceps: 2/2 2. Brachioradialis: 2/2 3. Patellae: 2/2 4. Achilles: 2/2 Plantar: flexor response bilaterally. Sensation by light touch is intact bilaterally throughout. Evaluation of gait is deferred based on the patient's fall risk. LaboratoryData: Most Recent Result within the last 7 days Lab Units 09/21/18 0645 09/20/18 0100 09/19/18 1820 SODIUM MEQ/L 144 141 141 POTASSIUM MEQ/L 3.6 4.2 4.3 CHLORIDE MEQ/L 117* 118* 115* CARBON DIOXIDE MEQ/L 23 17* 17* BLOOD UREA NITROGEN mg/dL 15 22 25 CREATININE mg/dL 0.8 1.2* 1.6* CALCIUM mg/dL 8.4 8.5 8.9 GLUCOSE mg/dL 112* 165* 86 ALBUMIN g/dL -- -- 3.3* PROTEIN TOTAL SERUM g/dL -- -- 6.5 ALKALINE PHOSPHATASE IU/L -- -- 102 ALANINE AMINOTRANSFERASE IU/L -- -- 23 ASPARTATE AMINOTRANSFERASE IU/L -- -- 26 Most Recent Result within the last 7 days Lab Units 09/21/18 0645 09/20/18 0100 WBC TH/uL 10.56 12.23* HEMOGLOBIN g/dL 11.9* 12.1 HEMATOCRIT % 36 36 PLATELET COUNT TH/uL 203 193 No lab components to display. No lab components to display Most Recent Result within the last 7 days Lab Units 09/21/18 0645 09/20/18 0100 09/19/18 1820 CREATININE mg/dL 0.8 1.2* 1.6* No lab components to display Depression Part 1: How often have you been bothered by each of the following sym ptoms during the past two weeks? 1) In the last month, have you felt down, depressed, or hopeless?: Not at all 2) In the last month, have you felt little interest or pleasure in doing things? : Not at all Part 1 Score:: 0 Suicide/Homicide Screening Many patients who are experiencing stress, serious medical issues, or feel depre ssed or hopeless sometimes have thoughts of wanting to or hurt themselves. Have you had any of these thoughts?: No Do you ever have thoughts of harming anyone else?: No STUDIES REVIEWED CT head without contrast from outside hospital did not show any acute abnormalit ies. Refer to the history above for further details. Outside MRI pending. IMPRESSION/PLAN Summary: 48 y.o. right-handed female with a history of cryptogenic refractory epilepsy wh o is taking Banzel 1200 mg twice daily, and Lamictal 200 mg 3 times daily. She is tolerating the medication regimen well and is having approximately 5 seizures per week. Her recent seizure frequency has been complicated by Chantix which w as recently discontinued. She was transferred to [facility] on 8 after experiencing a single seizure, hallucinations, and increased confusion t he previous day after taking an inappropriate amount of her medications that inc luded narcotics after her medication box was spilled on the floor. Impression: Encephalopathy/altered mental status- secondary to polypharmacy (unintentiona l) and is now resolved. The patient states that she has returned to her neurolo gical baseline. Visual hallucinations - resolved. These were likely attributed to polypharma cy. No previous history of hallucinations Probable focal versus generalized cryptogenic epilepsy-her current regimen in udes Banzel 1200 mg twice daily, and lamotrigine 200 mg 3 times daily. She is tolerating this well without any adverse side effects. Migraine headaches-she has an appointment to see our migraine clinic in the n ext week or so. Plan: No indication for video EEG monitoring at this time. Monitor patient with seizure precautions. Padded bed rails Continuous bedside pulse oximetry Ensure that an oxygen cannula and suction are ready at bedside Maintain IV access in case a prolonged seizure occurs for which rescue medica tion would need to be given. Continue AED regimen as follows: Continue Banzel 1,200 mg PO BID Continue Lamictal 200 mg PO 3 times daily Please complete PHQ-9 depression screening. Patient mutually agrees and verbally understands the driving restrictions, sa fety precautions, and medication instructions outlined below. Epilepsy service will sign off. She will keep her appointment with Hortencia Stewart or schedule a sooner appointm ent if needed. The patient understands that state driving laws in [place] and [place] restrict driving for 6 months following an episode of altered awareness, seizures, and/or spells that could prevent control of a vehicle. Additionally, the patient under stands to exercise caution and avoid situations that could be dangerous if a sei zure were to occur such as swimming without a trained youth teacher present, unsuper vised bathing in a bathtub, climbing tall heights or ladders, operating [employer] s machinery or exposure to open heat sources. Also, avoid sleep deprivation, al cohol, and illicit drug use. Call the doctor when: seizures occur more often, seizures become worse, seizure lasts more than 5 minutes, or you experience side effects from your seizure medications. Helpful tips Take all of your seizure medications as it was prescribed. Avoid missing any doses of your seizure medication. If you forget a dose, take it as soon as possible. If it is within a few hours o f your next dose, skip it and take your next dose. Do not run out of your seizure medications. Get them refilled before you run out . . Pager: [phone] * Phyllis Tinoco RN VARNISHING UNIT TOOL SETTER - 09/20/2018 9:29 AM CDT Associated Order(s): IP CONSULT TO HOSPITALIST [facility] Hospitalist - Consult History & Physical Patient Name: Rajiv Cullen Account No: [id number] Date of : 1970 Date of Admission: 09/19/2018 4:59 PM Primary Care Physician: Freedom Villarreal MD; Consult to Hospitalist Consult performed by: PHYLLIS TINOCO Consult ordered by: DAVID SIMPSON Subjective History of Present illness: Ms. Rajiv Cullen is a 48 y.o. female with COPD, seizures s/p vagal nerve stimulator, JOSE ALBERTO, Migraines, tachycardia, and chronic pa in who presented from [facility] in [place], [place] for encephalopathy. She follows with Dr Tsai, neurology at [facility]. She resides with her daughter wh o reported a 2 day history of confusion, hallucinations after an increased in an ticonvulsant, Benzal, on 08/31/18, missing opiates from daughter's prescription b ottle, and potential mix up of her own pill box. She reports daily migraine hea daches with photo and phonophobia which induces seizures. She isn't sure if she missed any anticonvulsant doses and increased her [place] intake the past 2 days due to increased pain. She was put on cefdinir 09/14 for URI and increased her use of neb tx due to SOA, productive cough of dark green/black sputum and CP wit h coughing only. She denies LE edema. She fell from a seizure 09/18 and denies hitting her head. No diarrhea, or vomiting. Notes indicate she was lethargic at [facility] with normal VS. She had metabolic acidosis as per ABG (pH 7.28, PCO2 3 8, PO2 75, bicarb 18 on room air). She had a new onset ERNESTO. Patient was given a normal saline bolus 1 L x3. There was some concern over the patient inappropri ately taking medications including narcotics. She received IV Narcan x2. Upon presentation to [facility] ICU, patient was alert and oriented x4. Of note, patient states that she has been taking 4x 600 mg motrin/ibuprofen minh ly over the past week for pain stemming from falls and has been taking chantix r ecently, although was advised by neurology to revisit her PCP about this as it m ay be contributing to her increased migraines and seizures. She was started on azithromycin, neb tx and oral prednisone for COPD exacerbation. Her Cr has impr man from 2 at OSH to 1.2 today with IVF and holding NSAIDs. She has remained tachycardic but did not receive her BB last evening. She feels her breathing and mentation is back to baseline on room air. Cough im proved. No diarrhea or vomiting. She reports nicotine cravings and chronic lef t ankle pain. ROS A 10-point review of systems was completed and was negative except as noted mayank schafer. Past Medical History: Diagnosis Date Allergic rhinitis seasonal allergies Arthritis Back pain Chronic constipation Chronic headaches on meds for these Depression Difficulty falling asleep at night until in store representative hours Difficulty staying asleep Exercise tolerance finding limited by leg pain--if walking a long way will use electric cart in grocery st ore Fractures from seizures--leg and ankle fractures in past Head injury concussions from seizures--since age 21 HL (hearing loss) left ear [place]-no hearing aides Kidney stones Migraine Osteoarthritis mainly ankles and knees and wrists [...] PROGRAMING; Reyna geon: Sj Vivar MD; Location: [facility] Main OR; Service: ENT; Laterality : N/A; TUBAL LIGATION 1992 Family History Problem Relation Age of Onset Hyperlipidemia Mother Migraines Mother Hyperlipidemia Father Diabetes Father Alcohol abuse Father Heart disease Other FAMILY HX Heart disease Other FAMILY HX Rheum arthritis Other FAMILY HX Migraines Cousin Social History Substance Use Topics Smoking status: Current Every Day Smoker Packs/day: 0.75 Years: 28.00 Types: Cigarettes Smokeless tobacco: Never Used Comment: "I've tried everything there is" Alcohol use No Allergies Allergen Reactions Aspirin Other (See Comments) Interacts with epilepsy meds Tylenol [Acetaminophen] Swelling Tylenol 3; Lips swell and blister Prior to Admission medications Medication Sig ipratropium-albuterol (DUO-NEB) 0.5-3 mg/3 mL nebulizer Inhale 3 mL via nebulize r 4 (four) times a day as needed. SUMAtriptan succinate 11 mg AePB Use in each nostril. ALBUTEROL INHL Inhale as needed. budesonide-formoterol (SYMBICORT) 160-4.5 mcg/actuation inhaler Inhale 2 [...] tablet (1 mg total) by mouth daily. HYDROcodone-acetaminophen (NORCO) 5-325 mg per tablet Take 1 tablet by mouth jerel ry 4 (four) hours as needed for pain. ibuprofen (ADVIL,MOTRIN) 800 MG tablet Take 800 mg by mouth 3 (three) times a da y as needed. lamoTRIgine (LAMICTAL) 200 MG tablet Take 1 tablet (200 mg total) by mouth 3 (th ree) times a day. linaclotide (LINZESS) 145 mcg cap Take 145 mcg by mouth daily. medroxyPROGESTERone (DEPO-PROVERA) 150 mg/mL injection Inject 150 mg intramuscul neo take as directed. Every 6 weeks melatonin 3 mg Tab tablet Take 3 mg by mouth nightly. montelukast (SINGULAIR) 10 mg tablet Take 10 mg by mouth nightly. ondansetron (ZOFRAN) 4 MG tablet Take 4 mg by mouth every 8 (eight) hours as nee ded for nausea. oxyCODONE (ROXICODONE) 5 MG immediate release tablet TK 1 T PO Q 6 HOURS AROUND THE CLOCK prochlorperazine (COMPAZINE) 10 MG tablet Take 10 mg by mouth 2 (two) times a da y. rufinamide (BANZEL) 200 MG tablet Take 6 tablets (1,200 mg total) by mouth 2 (tw o) times a day. simvastatin (ZOCOR) 20 MG tablet Take 20 mg by mouth nightly. solifenacin (VESICARE) 10 MG tablet Take 5 mg by mouth daily. UNABLE TO FIND daily. CENTRUM ADULTS TAKING 1 TAB DAILY. venlafaxine (EFFEXOR-XR) 150 MG ER 24 hr capsule Take 225 mg by mouth every morn ing. Objective Vital Signs: Temp: 37.2 C (99 F) Pulse: (!) 109 Resp: 18 BP: 118/56 SpO2: 97 % Height: 160 cm (5' 3") Weight: 91.8 kg (202 lb 6.1 oz) I/O last 24 Hours: In: 1292.6 [P.O.:340; I.V.:952.6] Out: 2245 [Urine:2245] Physical Exam Gen: Calm, cooperative, and in no distress HEENT: Head: Normal, normocephalic, atraumatic. Eye: Normal external eye, conjun ctiva, eye lids, and cornea. MMM, no LAD CV: Regular rate and rhythm, No murmurs, gallops, or rubs, Tachycardia with hea rt rate of 104 bpm Resp: Clear to auscultation, Breath sounds are equal and symmetric, diminished throughout Abd: Soft, Non-tender, Non-distended, Normal bowel sounds, obese Ext: No edema Skin: Warm, dry, skin intact with no obvious rashes or significant lesions Neuro: Alert, Oriented to person, place, date, and situation, No focal neurolog ic deficits noted Psych: Flat affect I have personally reviewed the patient's vital signs, laboratory/pathology/cultu re results (as indicated), imaging studies (results were not discussed with the performing provider), current inpatient medications, clinical support nurse notes, prior to admission medications and outside medical records with pertainent findings no monie within the assessment/plan. I have personally reviewed and updated the patie nt's past medical history, past surgical history, family history and social hist ory as appropriate. I have personally spoken with the patient regarding this pat ient's case. Assessment/Plan Ms. Rajiv Cullen is a 48 y.o. female who was admitted on 09/19/2018 with com plaint of encephalopathy. * Encephalopathy Polypharmacy vs seizure vs ERNESTO vs metabolic RESOLVED ERNESTO (acute kidney injury) (HCC) Cr 2 at OSH (was 0.9 11 days prior) Improving with IVF to 1.2 today Enc po intake IVF BMP in AM Avoid nephrotoxic agents including IV contrast, NSAID's, ACEi's, & ARB's Keep MAP>65 to maintain adequate renal perfusion. Pharmacy to renally dose all medications. COPD with acute exacerbation (HCC) CXR neg, Resp Viral panel neg; Flu vaccine given Jul 2018 Enc tobacco cessation Azithromycin and prednisone 40mg po Neb tx QID Continue Breo (substituted for Symbicort) and singulair Seizures (HCC) Recent increase in Banzel 10/01/18 by [facility] neurology Continue home anticonvulsants-Banzel and lamotrigine Seizure precautions Tachycardia Rate controlled with Coreg Continue Coreg and monitor tele Anxiety Continue Effexor Chronic pain Avoid narcotics if able. Allergies to ASA and Acetaminophen Cautious use of NSAIDs with renal function Migraine Avoid narcotics if able Check if she is using sumatriptan at home. In addition, see my orders for additional details regarding this patients treatm ent plan. Diet: Diet-Regular Code Status: Full Code VTE Prevention: Appropriate VTE orders and/or documentation has been completed for this patient. Thank you for the opportunity to participate in this patients care. We will cont inue to follow. Phyllis Tinoco RN APRN [facility] Please page through physician paging. . documented in this encounter Nursing Notes * Nino Cotto RN - 09/22/2018 4:20 PM CDT Discharge paperwork reviewed with pt. Pt verbalizes understanding of discharge i nstructions, including the driving restriction related to seizures. Right FA PIV removed with no complications. All pt belongings returned, including medication s being stored in pharmacy (signed receipt of pick-up/return placed in pt chart) . Pt taken via hospital transport to pick-up area for transport home with father . No further questions. * Migdalia Silveira RN - 09/20/2018 11:15 AM CDT Rajiv Cullen, transferred from [facility] to [facility] at 1115. The p atient was made aware of the transfer. The patient was transported via w/c, ac companied by: RN and NA The Care Plan was reviewed-yes. A full report was given to ELVIRA Louie. documented in this encounter Miscellaneous Notes * Plan of Care - Nino Cotto RN - 09/22/2018 2:22 PM CDT Problem: Knowledge Deficit Goal: Patient/family/caregiver demonstrates understanding of disease process, tr eatment plan, medications, and discharge instructions Complete learning assessment and assess knowledge base. Outcome: Progressing Problem: Potential for Compromised Skin Integrity Goal: Skin integrity is maintained or improved Assess and monitor skin integrity. Identify patients at risk for skin breakdown on admission and per policy. Collaborate with interdisciplinary team and initiat e plans and interventions as needed. Outcome: Progressing Goal: Nutritional status is improving Monitor and assess patient for malnutrition (ex- brittle hair, bruises, dry skin , pale skin and conjunctiva, muscle wasting, smooth red tongue, and disorientati on). Collaborate with interdisciplinary team and initiate plan and interventions as ordered. Monitor patient's weight and dietary intake as ordered or per rodri cy. Utilize nutrition screening tool and intervene per policy. Determine patient 's food preferences and provide high-protein, high-caloric foods as appropriate. Outcome: Progressing Problem: Risk for Falls Goal: Patient will not fall during their Inpatient stay Outcome: Progressing Problem: Altered Mental Status Goal: Appropriate cognitive abilities Outcome: Progressing Goal: Lack of agitation/hallucinations Outcome: Progressing Goal: Maintains functional capacity Outcome: Progressing Problem: Pain Goal: Pain controlled to Patient's (Family's) desired goal Outcome: Progressing Goal: Patient/Family/Caregiver will verbalize understanding of the pain manageme nt plan Outcome: Progressing Problem: Safety Goal: Patient with be injury free during hospitalization Outcome: Progressing Goal: Family demonstrates knowledge of safety measures Outcome: Progressing Problem: Nutrition Goal: Patient adheres to nutrition plan Outcome: Progressing Goal: Patient to baseline or improved nutrition Outcome: Progressing * Discharge Planning - Sarai Lombardi RN - 09/22/2018 2:17 PM CDT Discharge Planning Interventions General Discharge Note Patients Anticipated discharge destination: Home with Home Health Visited with the patient at the bedside to discuss the need for HH A list of p roviders for the patient's insurance was provided Patient instructed CC that she has [facility] home services and they set up her meds i n a medication box for her Patient states her medications were not mixed up but that water was spilled on her meds and rather than waste them she took them at that time CC cautioned patient not to take more than the prescribed medication s without checking with a healthcare professional Patient voiced understanding Care Progression team will continue to follow and assist with appropriate discha rge planning Sarai Lombardi, 09/22/2018 2:55 PM * Multidisciplinary Discharge Rounds Note - Sarai Lombardi RN - 09/22/2018 10:00 AM CDT Care Progression Multidisciplinary Discharge Rounds Note Patients Anticipated discharge destination: Home Self Care Discharge Comments: Admitted with encephalopathy / Discharge today The following are potential DC Needs/Barriers: Other(specifics in sticky note) ( None) Consults needed and/or active: Consults Needed: Social Work Disciplines Present: Fire Systems Inspector, Social Work, Primary RN, Title Manager Care Progression team will continue to follow and assist with appropriate discha rge planning Sarai Lombardi, 09/22/2018 3:00 PM * Plan of Care - Rhianna Zaragoza RN - 09/21/2018 9:44 PM CDT Problem: Potential for Compromised Skin Integrity Goal: Nutritional status is improving Monitor and assess patient for malnutrition (ex- brittle hair, bruises, dry skin , pale skin and conjunctiva, muscle wasting, smooth red tongue, and disorientati on). Collaborate with interdisciplinary team and initiate plan and interventions as ordered. Monitor patient's weight and dietary intake as ordered or per rodri cy. Utilize nutrition screening tool and intervene per policy. Determine patient 's food preferences and provide high-protein, high-caloric foods as appropriate. Outcome: Progressing Nutritional intake within normal limits. Problem: Pain Goal: Pain controlled to Patient's (Family's) desired goal Outcome: Progressing No complaints of pain at this time. * Plan of Care - Nino Cotto RN - 09/21/2018 6:31 PM CDT Problem: Knowledge Deficit Goal: Patient/family/caregiver demonstrates understanding of disease process, tr eatment plan, medications, and discharge instructions Complete learning assessment and assess knowledge base. Outcome: Progressing Problem: Potential for Compromised Skin Integrity Goal: Skin integrity is maintained or improved Assess and monitor skin integrity. Identify patients at risk for skin breakdown on admission and per policy. Collaborate with interdisciplinary team and initiat e plans and interventions as needed. Outcome: Progressing Goal: Nutritional status is improving Monitor and assess patient for malnutrition (ex- brittle hair, bruises, dry skin , pale skin and conjunctiva, muscle wasting, smooth red tongue, and disorientati on). Collaborate with interdisciplinary team and initiate plan and interventions as ordered. Monitor patient's weight and dietary intake as ordered or per rodri cy. Utilize nutrition screening tool and intervene per policy. Determine patient 's food preferences and provide high-protein, high-caloric foods as appropriate. Outcome: Progressing Problem: Risk for Falls Goal: Patient will not fall during their Inpatient stay Outcome: Progressing Problem: Altered Mental Status Goal: Appropriate cognitive abilities Outcome: Progressing Goal: Lack of agitation/hallucinations Outcome: Progressing Goal: Maintains functional capacity Outcome: Progressing Problem: Pain Goal: Pain controlled to Patient's (Family's) desired goal Outcome: Progressing Goal: Patient/Family/Caregiver will verbalize understanding of the pain manageme nt plan Outcome: Progressing Problem: Safety Goal: Patient with be injury free during hospitalization Outcome: Progressing Goal: Family demonstrates knowledge of safety measures Outcome: Progressing Problem: Nutrition Goal: Patient adheres to nutrition plan Outcome: Progressing Goal: Patient to baseline or improved nutrition Outcome: Progressing * Assessment & Plan Note - Malathi Park RN VARNISHING UNIT TOOL SETTER - 09/21/2018 2:21 PM CDT Associated Problem(s): Hyperglycemia (Resolved 09/22/2018) Likely steroid induced -SSI for elevations -check hgb A1c * Multidisciplinary Discharge Rounds Note - Sarai Lombardi RN - 09/21/2018 10:00 AM CDT Care Progression Multidisciplinary Discharge Rounds Note Patients Anticipated discharge destination: Home with Home Health Discharge Comments: Admitted with encephalopathy / Continue to follow The following are potential DC Needs/Barriers: Additional Testing needed (commen t) Consults needed and/or active: Consults Needed: Social Work Disciplines Present: Fire Systems Inspector, Social Work, Primary RN Care Progression team will continue to follow and assist with appropriate discha rge planning Sarai Lombardi, 09/21/2018 12:26 PM * Care Progression Initial Assessment - Darío Christina, SPIKE MACHINE FEEDER - 09/21/2018 9:23 AM CDT Care Progression Initial Assessment Note SW reviewed EMR. Initial assessment completed. Information obtained from: Pt. S W Introduced self and purpose of meeting. The patient was agreeable to interview . Reason for Hospitalization: Encephalopathy Anticipate Discharge Plan: [facility] v HH pending further eval In Home Support: Pt. Lives in a house (house has ramp to enter - zero steps insi de) w/ adult daughter and 8 yr. Old grandson. Pt. Reports having the ability t o have / supervision and assistance provided by her retired father. Pt. Repo rts that she doesn't drive and that her father provides transportation to all ap pointments and will transport her from hospital to home. Pt. Reports not using DMEs at baseline but has w/c, walker and crutches at home. Pt. Uses a Bipap. Marital Status: Transportation at Discharge: Dayton Mireles (father) #[phone] Transportation to Appointments: father Previous Home Services: Pt. Denies prior hx Previous Home Infusion: Pt. Denies prior hx Home O2: Bipap Previous Placement Services: Pt. Denies prior hx RX Coverage: YES - Medicaid - no spend down Able to afford medications: YES Patient's Preferred Pharmacy: [id number] - [place], [place] - [address] [facility] [address] [facility] [id number] [facility] - [place], [place] [address] [place] [address] [facility] - [place], [place] - [address] [place] [address] PCP: Freedom Villarreal MD [phone] Face Sheet Verified: Yes Additional information: 09/21/18 09 Referral Data Referral Source Care Progression Referral Name Christina Chanel LCSW Referral Reason Discharge planning Patient Information Primary Caregiver Self Information obtained from: Pt. Support System Parents Living Arrangement House Patient Concerns No Family Concerns No Patient Mixer Operator Patient Mixer Operator Name Dayton Mireles Patient Mixer Operator Assistive Devices Assistive Devices (has access to but doesn't use : w/c, walker, crutches) Respiratory Respiratory items: BiPap Income Information Income Source Not employed Government Assistance SS/SSI;Medicare;Medicaid Income/Expense Information Income meets expenses Resources Resources Available Rx benefits Christina Chanel LCSW 09/21/2018 9:27 AM [id number] * Plan of Care - Rhianna Zaragoza RN - 09/20/2018 9:01 PM CDT Problem: Potential for Compromised Skin Integrity Goal: Skin integrity is maintained or improved Assess and monitor skin integrity. Identify patients at risk for skin breakdown on admission and per policy. Collaborate with interdisciplinary team and initiat e plans and interventions as needed. Outcome: Progressing Skin integrity is maintained and within normal limits. Goal: Nutritional status is improving Monitor and assess patient for malnutrition (ex- brittle hair, bruises, dry skin , pale skin and conjunctiva, muscle wasting, smooth red tongue, and disorientati on). Collaborate with interdisciplinary team and initiate plan and interventions as ordered. Monitor patient's weight and dietary intake as ordered or per rodri cy. Utilize nutrition screening tool and intervene per policy. Determine patient 's food preferences and provide high-protein, high-caloric foods as appropriate. Outcome: Progressing Nutritional intake within normal limits. Problem: Risk for Falls Goal: Patient will not fall during their Inpatient stay Outcome: Progressing Patient will not fall. Up with standby assistance only. Bed alarm on, bed low an d locked, call light in reach, frequent visual observations made. * Assessment & Plan Note - Malathi Park RN VARNISHING UNIT TOOL SETTER - 09/20/2018 1:26 PM CDT Associated Problem(s): Chronic pain Back pain, migraines Polypharmacy, mistaken dosing of medication thought contributed to admission -Allergies to ASA and Acetaminophen -Discontinue NSAIDS due to ERNESTO Prior to admission * Assessment & Plan Note - Malathi Park RN VARNISHING UNIT TOOL SETTER - 09/20/2018 1:23 PM CDT Associated Problem(s): Migraine without aura and without status migrainosus, not intractable No current symptoms -Avoid narcotics -continue sumatriptan * Plan of Care - Migdalia Silveira RN - 09/20/2018 11:11 AM CDT Problem: Knowledge Deficit Goal: Patient/family/caregiver demonstrates understanding of disease process, tr eatment plan, medications, and discharge instructions Complete learning assessment and assess knowledge base. Outcome: Progressing Problem: Potential for Compromised Skin Integrity Goal: Skin integrity is maintained or improved Assess and monitor skin integrity. Identify patients at risk for skin breakdown on admission and per policy. Collaborate with interdisciplinary team and initiat e plans and interventions as needed. Outcome: Progressing Problem: Risk for Falls Goal: Patient will not fall during their Inpatient stay Outcome: Progressing * Assessment & Plan Note - Malathi Park RN VARNISHING UNIT TOOL SETTER - 09/20/2018 10:28 AM CDT Associated Problem(s): ERNESTO (acute kidney injury) (HCC) (Resolved 09/22/2018) Cr 2 at OSH (was 0.9 11 days prior) Improved with IVF to 0.8; likely prerenal --Avoid nephrotoxic agents including IV contrast, NSAID's, ACEi's, & ARB's --Keep MAP>65 to maintain adequate renal perfusion. * Assessment & Plan Note - Malathi Park RN VARNISHING UNIT TOOL SETTER - 09/20/2018 10:26 AM CDT Associated Problem(s): Seizures (HCC) Recent increase in Banzel 08/31/18 by [facility] neurology -consult epilepsy for recommendations for recent increase in seizure activity -Continue home anticonvulsants-Banzel and lamotrigine -Seizure precautions * Assessment & Plan Note - Malathi Park RN VARNISHING UNIT TOOL SETTER - 09/20/2018 10:24 AM CDT Associated Problem(s): COPD with acute exacerbation (HCC) Increase in sputum amt and color CXR neg, Resp Viral panel neg; Flu vaccine given Jul 2018 -Azithromycin and prednisone 40mg po -Neb treatment -Continue Breo (substituted for Symbicort) and singulair -tobacco cessation discussed and encouraged; recently stopped chantix due to low ering seizure threshold * Assessment & Plan Note - Malathi Park RN VARNISHING UNIT TOOL SETTER - 09/20/2018 10:23 AM CDT Associated Problem(s): Anxiety Mood stable -Continue Effexor * Assessment & Plan Note - Malathi Park RN VARNISHING UNIT TOOL SETTER - 09/20/2018 10:23 AM CDT Associated Problem(s): Tachycardia (Resolved 09/22/2018) Likely COPD exacerbatio contibuting -Continue Coreg and monitor * Assessment & Plan Note - Malathi Park RN APRN - 09/20/2018 10:21 AM CDT Associated Problem(s): Encephalopathy (Resolved 09/22/2018) improved Considerations include Polypharmacy vs seizure vs metabolic -consult epilepsy for seizure recommendations -consult SW for discharge planning (assistance with medications) documented in this encounter Plan of Treatment Care Team Description Date Type Specialty Hortencia Stewart APRN [address] [address] [phone] 03/31/2020 Office Visit Neurology documented as of this encounter Procedures Comments Procedure Name Priority Date/Time Associated Diag nosis GLUCOSE POC Routine 09/22/2018 11:53 AM CDT GLUCOSE POC Routine 09/22/2018 7:59 AM CDT GLUCOSE POC Routine 09/21/2018 8:55 PM CDT GLUCOSE POC Routine 09/21/2018 4:13 PM CDT GLUCOSE POC Routine 09/21/2018 11:24 AM CDT HEMOGLOBIN A1C Add-On 09/21/2018 6:45 AM CDT COMPLETE BLOOD COUNT Routine 09/21/2018 6:45 AM CDT BASIC METABOLIC PANEL Routine 09/21/2018 6:45 AM CDT XR CHEST SINGLE VIEW Routine 09/20/2018 FRONTAL 6:21 AM CDT COMPLETE BLOOD COUNT Routine 09/20/2018 1:00 AM CDT BASIC METABOLIC PANEL Routine 09/20/2018 1:00 AM CDT CREATINE KINASE Routine 09/19/2018 6:20 PM CDT COMPREHENSIVE METABOLIC Routine 09/19/2018 PANEL 6:20 PM CDT AMMONIA Routine 09/19/2018 6:20 PM CDT RESPIRATORY PANEL BY PCR Routine 09/19/2018 6:13 PM CDT ECG Routine 09/19/2018 6:03 PM CDT SODIUM URINE RANDOM QUANT Routine 09/19/2018 5:51 PM CDT PROTEIN URINE RANDOM Routine 09/19/2018 5:51 PM CDT CREATININE URINE RANDOM Routine 09/19/2018 QUANT 5:51 PM CDT GLUCOSE POC Routine 09/19/2018 5:05 PM CDT documented in this encounter Results * GLUCOSE POC (09/22/2018 11:53 AM CDT) Only the most recent of 6 results within the time period is included. Glucose POC 212 (H) 70 - 100 mg/dL [facility] Specimen Performing Organization Address [facility] one Number [address] [phone] LABORATORIES * Hemoglobin A1C (09/21/2018 6:45 AM CDT) Hemoglobin A1C 6.1 (H) 4.0 - 5.6 % [facility] Comment: REGIONAL Non-diabetic 4.0 - LABORATORIES 5.6 % Prediabetes 5.7 - 6.4 % Diabetes >= 6.5 % Specimen Blood Performing Organization Address [facility] Ph one Number [address] [address] LABORATORIES * Complete Blood Count (09/21/2018 6:45 AM CDT) Only the most recent of 2 results within the time period is included. WBC 10.56 4.00 - 11.00 TH/uL [facility] RBC 3.96 (L) 4.00 - 5.00 MIL/uL [facility] Hemoglobin 11.9 (L) 12.0 - 15.0 g/dL [facility] Hematocrit 36 36 - 45 % [facility] MCV 91 80 - 99 fL [facility] MCH 30 27 - 34 pg [facility] MCHC 33 32 - 36 % [facility] RDW 14.2 9.0 - 14.5 % [facility] Platelet Count 203 140 - 400 TH/uL [facility] MPV 10.5 9.4 - 12.3 fL [facility] Nucleated RBCs 0 0 - 0 /100 [facility] Specimen Blood Performing Organization Address [facility] one Number [facility] [address] [place] [address] LABORATORIES * Basic Metabolic Panel (09/21/2018 6:45 AM CDT) Only the most recent of 2 results within the time period is included. Sodium 144 133 - 147 MEQ/L [facility] Potassium 3.6 3.5 - 5.3 MEQ/L [facility] Chloride 117 (H) 96 - 112 MEQ/L [facility] Carbon Dioxide 23 20 - 32 MEQ/L [facility] Anion Gap 4 (L) 5 - 17 [facility] Calcium 8.4 8.4 - 10.5 mg/dL [facility] Glucose 112 (H) 70 - 100 mg/dL [facility] Blood Urea 15 7 - 26 mg/dL [facility] LABORATORIES Creatinine 0.8 0.4 - 1.1 mg/dL [facility] eGFR Female AA 92 60 - 200 [facility] Comment: REGIONAL Chronic Kidney Disease less LABORATORIES than 60 mL/min/1.73 sq.m Kidney failure less than 15 mL/min/1.73 sq.m eGFR Female 77 60 - 200 [facility] Non-AA Comment: REGIONAL Chronic Kidney Disease less LABORATORIES than 60 mL/min/1.73 sq.m Kidney failure less than 15 mL/min/1.73 sq.m Specimen Blood Performing Organization Address City/[facility] Ph one Number [address] [address] LABORATORIES * XR Chest single view frontal (09/20/2018 6:21 AM CDT) Specimen Impressions Performed At No acute cardiopulmonary process TINO READING SITE: [facility] Narrative Performed At Patient: RAJIV CULLEN Sex#: Bernardino # [id number] Lazara#: [id number] Location: [address] [id number] Procedure Requested: [id number] XR CHEST SINGLE VIEW FRONTAL Reason for Exam: r/o fluid overload Exam Ordered: 09/20/2018 0 300 Exam Date/Time: 09/20/2018 06 21 Begin exam date/time: 09/20/2018 06 16 XR CHEST SINGLE VIEW FRONTAL INDICATION: r/o fluid overload. COMPARISON STUDY: None Life Support Devices: Stable life suppo rt devices Lungs: The limited visualized aspects o f the lungs are clear. The retrocardiac region is well seen Pleura: Negative Heart and Mediastinum: Heart size is ex aggerated by technique Bones and Soft Tissues: Negative Procedure Note Interface, Rad Results In - 09/20/2018 8:34 AM CDT Patient: RAJIV CULLEN Sex#: F # [id number] Lazara#: [id number] Location: [address] ICU [id number] Procedure Requested: [id number] XR CHEST SINGLE VIEW FRONTAL Reason for Exam: r/o fluid overload Exam Ordered: 09/20/2018 0300 Exam Date/Time: 09/20/2018 0621 Begin exam date/time: 09/20/2018 0616 XR CHEST SINGLE VIEW FRONTAL INDICATION: r/o fluid overload. COMPARISON STUDY: None Life Support Devices: Stable life support devices Lungs: The limited visualized aspects of the lungs are clear. The retrocardiac region is well seen Pleura: Negative Heart and Mediastinum: Heart size is exaggerated by technique Bones and Soft Tissues: Negative IMPRESSION No acute cardiopulmonary process READING SITE: [facility] Performing Organization Address [facility] one Number TINO * Creatine Kinase (09/19/2018 6:20 PM CDT) Creatine Kinase 280 IU/L [facility] Comment: REGIONAL White Female: 30 - 160 LABORATORIES IU/L Black Female: 30 - 430 IU/L White Male: 40 - 425 IU/L Black Male: 50 - 850 IU/L Specimen Blood Performing Organization Address [facility] one Number [facility] [address] [place], [place] [phone] LABORATORIES * Ammonia (09/19/2018 6:20 PM CDT) Pathologist [facility] Ammonia <9 (L) 9 - 30 umol/L [facility] LABORATORIES Specimen Blood Performing Organization Address [facility] one Number [facility] [address] [place], [place] [phone] LABORATORIES * Comprehensive Metabolic Panel (09/19/2018 6:20 PM CDT) Pathologist [facility] Sodium 141 133 - 147 MEQ/L [facility] LABORATORIES Potassium 4.3 3.5 - 5.3 MEQ/L [facility] LABORATORIES Chloride 115 (H) 96 - 112 MEQ/L [facility] Carbon Dioxide 17 (L) 20 - 32 MEQ/L [facility] Anion Gap 9 5 - 17 [facility] LABORATORIES Calcium 8.9 8.4 - 10.5 mg/dL [facility] Glucose 86 70 - 100 mg/dL [facility] Protein Total 6.5 6.0 - 8.2 g/dL [facility] Serum REGIONAL LABORATORIES Albumin 3.3 (L) 3.5 - 5.0 g/dL [facility] LABORATORIES Alkaline 102 42 - 140 IU/L [facility] Phosphatase [facility] Alanine 23Comment: ALT reference range 0 - 34 IU/L [facility] Aminotransferas changed on 06-06-2018 REGIONAL e LABORATORIES Aspartate 26 15 - 46 IU/L [facility] Aminotransferas REGIONAL e LABORATORIES Bilirubin Total 0.5 0.2 - 1.3 mg/dL [facility] Blood Urea 25 7 - 26 mg/dL [facility] Nitrogen [facility] Creatinine 1.6 (H) 0.4 - 1.1 mg/dL [facility] eGFR Female AA 41 (L) 60 - 200 [facility] Comment: REGIONAL Chronic Kidney Disease less LABORATORIES than 60 mL/min/1.73 sq.m Kidney failure less than 15 mL/min/1.73 sq.m eGFR Female 34 (L) 60 - 200 [facility] Non-AA Comment: REGIONAL Chronic Kidney Disease less LABORATORIES than 60 mL/min/1.73 sq.m Kidney failure less than 15 mL/min/1.73 sq.m Specimen Blood Performing Organization Address City/[facility] Ph one Number [facility] [address] [place] [address] LABORATORIES * Respiratory Panel by PCR (09/19/2018 6:13 PM CDT) Pathologist [facility] Adenovirus Not Detected Not Detected [facility] Coronavirus Not Detected Not Detected [facility] Human Not Detected Not Detected [facility] Metapneumovirus [facility] Human Not Detected Not Detected [facility] Rhinovirus [facility] Enterovirus LABORATORIES Influenza A Not Detected Not Detected [facility] Influenza B Not Detected Not Detected [facility] Parainfluenza Not Detected Not Detected [facility] Virus [facility] Respiratory Not Detected Not Detected [facility] Syncytial Virus [facility] LABORATORIES Bordetella Not Detected Not Detected [facility] pertussis [facility] Chlamydophila Not Detected Not Detected [facility] pneumoniae [facility] Mycoplasma Not Detected Not Detected [facility] pneumoniae [facility] LAB[facility]IES Source NASOPHAR [facility] Specimen Nasopharynx, Performing Organization Address [facility] Ph one Number [facility] [address] [place] [address] LABORATORIES * Electrocardiogram (ECG) (09/19/2018 6:03 PM CDT) [facility] QRSd 88 TRACEMASTER QT 392 TRACEMASTER QTC 496 TRACEMASTER ECGHR 96 TRACEMASTER ECGPR 192 TRACEMASTER Specimen Narrative Performed At [facility] Test Date: 2018-09-19 Pat Name: RAJIV CULLEN Department: E4A Room: NA Gender: Female 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 : 1970 Requested By: DAVID SIMPSON Order Number: [id number] Reading MD: Minerva Rizzo Measurements Intervals [place] Rate: 96 P: 46 FL: 192 QRS: 42 QRSD: 88 T: 38 QT: 392 QTc: 496 Interpretive Statements SINUS RHYTHM BORDERLINE PROLONGED QT INTERVAL RSR' pattern in V1-2 Electronically Signed On 09-25-2018 17: 50:37 CDT by Minerva Rizzo Procedure Note Interface, External Ris In - 09/25/2018 5:50 PM CDT [facility] Test Date: 2018-09-19 Pat Name: RAJIV HOWELLHLER Department: E4A Room: [facility] Gender: Female Java Integration Developer: [id number] : 1970 Requested By: DAVID SIMPSON Order Number: [id number] Reading MD: Minerva Rizzo Measurements Intervals [place] Rate: 96 P: 46 FL: 192 QRS: 42 QRSD: 88 T: 38 QT: 392 QTc: 496 Interpretive Statements SINUS RHYTHM BORDERLINE PROLONGED QT INTERVAL RSR' pattern in V1-2 Electronically Signed On 09-25-2018 17:50:37 CDT by Minerva Rizzo Performing Organization Address [facility] one Number TRACEMASTER * Protein Urine Random (09/19/2018 5:51 PM CDT) Creatinine 18.0 mg/dL [facility] Urine Random REGIONAL LABORATORIES Protein Urine 19.0 mg/dL [facility] Protein/Creat 1,056 (H) 0 - 150 mg/g [facility] Ratio REGIONAL LABORATORIES Specimen Urine Performing Organization Address [facility] Ph one Number [facility] [address] [place] [address] LABORATORIES * Creatinine Urine Random Quant (09/19/2018 5:51 PM CDT) Creatinine 18.0 mg/dL [facility] Urine Random REGIONAL LABORATORIES Specimen Urine Performing Organization Address [facility] one Number [facility] [address] [place] [address] LABORATORIES * Sodium Urine Random Quant (09/19/2018 5:51 PM CDT) Sodium Urine 111 MEQ/L [facility] REGIONAL LABORATORIES Specimen Urine Performing Organization Address [facility]/State[facility] one Number [facility] [address] [address] LABORATORIES documented in this encounter Visit Diagnoses Diagnosis ERNESTO (acute kidney injury) (HCC) Encephalopathy Unspecified encephalopathy COPD with acute exacerbation (HCC) Seizures (HCC) Other convulsions Tachycardia Unspecified tachycardia Anxiety Anxiety state, unspecified Migraine without aura and without statu s migrainosus, not intractable Chronic pain Other chronic pain Hyperglycemia Other abnormal glucose documented in this encounter Administered Medications Action Date Dose Rate Site Medication Order MAR Action 09/22/2018 9:22 AM CDT 250 mg azithromycin (ZITHROMAX) tablet 250 mg Given 250 mg, Oral, Daily, Indications: BRONCHITIS, First dose on Tue09/20/18 at 0900, For 4 doses 250 mg Given 09/21/2018 9:08 AM CDT 250 mg Given 09/20/2018 8:25 AM CDT 09/19/2018 8:14 PM CDT 500 mg azithromycin (ZITHROMAX) tablet 500 mg Given 500 mg, Oral, Daily, Indications: BRONCHITIS, First dose on Tue09/19/18 at 1815, For 1 dose bisacodyl (DULCOLAX) suppository 10 mg 10 mg, Rectal, Daily PRN, constipation, if unable to tolerate oral medications, Starting Tue09/19/18 at 1741, If no bowel movement after 24 hours of therap y check for fecal impaction. Manually disimpact if impacted and stool soft enough. If stool hard, soften with glycerin suppository before disimpacting. After disimpaction, give 500 mL tap water enema until clear and notify physician when completed., calcium chloride 2,000 mg in sodium chloride 0.9 % (NS) 100 mL IVPB 2,000 mg, Intravenous, Administer over 60 Minutes, As needed, ionized calcium < 3.5, Starting Tue09/19/18 at 1746, Administer via central line. Repeat Ionized Calcium level 1 hour after infusion. Notify Resident or Attending Physician with next rounds. For ICU only. DO NOT REFRIGERATE, 09/22/2018 9:22 AM CDT 12.5 mg carvedilol (COREG) tablet 12.5 mg Given 12.5 mg, Oral, 2 times daily, First dos e on Tue09/20/18 at 0900 12.5 mg Given 09/21/2018 9:06 PM CDT 12.5 mg Given 09/21/2018 9:08 AM CDT dextrose (D50W) 50 % injection 25-50 mL 25-50 mL, Intravenous, As needed, low blood sugar, Starting Sarah 09/21/18 at 1125, Give if patient NPO and IV access already available. If no IV access giv e Glucagon SQ or IM in arm and turn patient on side. Recheck BG in 15 minutes. Repeat until glucose greater than 80., dextrose 10% (D10W) bolus 125-250 mL 125-250 mL, Intravenous, at 500-1,000 mL/hr, As needed, low blood sugar, Starting Sarah 09/21/18 at 1125, Give if patient NPO and IV access already available. If no IV access give Glucagon SQ or IM in arm and turn patient on side. Recheck BG in 15 minutes. Repeat until glucose greater than 80., dextrose 50% (D50W) syringe 25-50 mL 25-50 mL, Intravenous, As needed, low blood sugar, Starting Sarah 09/21/18 at 1125, Give if patient NPO and IV access already available. If no IV access giv e Glucagon SQ or IM in arm and turn patient on side. Recheck BG in 15 minutes. Repeat until glucose greater than 80., docusate sodium (COLACE) capsule 100 mg 100 mg, Oral, 2 times daily PRN, stool softening, Starting Tue09/19/18 at 1741, DO NOT CRUSH OR CHEW., 09/22/2018 9:22 AM CDT 20 mg famotidine (PEPCID) tablet 20 mg Given 20 mg, Oral, Every 12 hours, First dose (after last modification) on Tue09/19/18 at 2100, Pharmacy to adjust dosing for renal insufficiency., 20 mg Given 09/21/2018 9:06 PM CDT 20 mg Given 09/21/2018 9:08 AM CDT 09/22/2018 9:23 AM CDT 1 spray fluticasone (FLONASE) 50 mcg/actuation Given nasal spray 1 spray 1 spray, Each Nare, Daily, First dose o n Tue09/21/18 at 1130 1 spray Given 09/21/2018 2:27 PM CDT 09/20/2018 8:02 AM CDT 1 puff fluticasone-vilanterol (BREO ELLIPTA) Given 100-25 mcg/actuation inhaler 1 puff 1 puff, Inhalation, Daily, First dose o n Tue09/20/18 at 0900 glucagon (GLUCAGEN) injection 1 mg 1 mg, Intramuscular, As needed, low blood sugar, low blood sugar, Starting Sarah 09/21/18 at 1125, If no IV access. May give IM or SQ in arm and turn patient on side., glucagon (GLUCAGEN) injection 1 mg 1 mg, Subcutaneous, As needed, low bloo d sugar, low blood sugar, Starting Tue09/21/18 at 1125, If no IV access. May give IM or SQ in arm and turn patient o n side., 09/22/2018 12:45 PM CDT 5,000 Units Abdomina l Tissue heparin (porcine) 5,000 unit/mL Given injection 5,000 Units 5,000 Units, Subcutaneous, Every 8 hours, First dose on Tue09/19/18 at 2200 5,000 Units Abdominal Tissue Given 09/22/2018 5:47 AM CDT 5,000 Units Abdominal Tissue Given 09/21/2018 9:02 PM CDT 09/21/2018 6:15 PM CDT 1 tablet HYDROcodone-acetaminophen (NORCO) 5-325 Given mg per tablet 1 tablet 1 tablet, Oral, Once, Tue09/21/18 at 1800, For 1 dose, Do not exceed 4 GM/DA Y of acetaminophen. If 65 or older do no t exceed 3 GM/DAY. If chronic alcoholic d o not exceed 2 GM/DAY., 09/20/2018 3:47 PM CDT 400 mg ibuprofen (ADVIL,MOTRIN) tablet 400 mg Given 400 mg, Oral, Once, Tue09/20/18 at 1600, For 1 dose 09/22/2018 12:45 PM CDT 3 Units Abdomina l Tissue insulin lispro (HumaLOG) injection 2-7 Given Units 2-7 Units, Subcutaneous, 4 times daily before meals and nightly, First dose on Sarah 09/21/18 at 1145, LEVEL 3 Give in addition to scheduled mealtime insulin per table Glucose Level (mg/dL) Dose <120 No Insulin 121-150 No Insulin 151-200 2 units 201-250 3 units 251-300 4 units 301-350 5 units 351-400 6 units >400 7 units Bedtime Correction - If glucose level is < 200, do not give any correction dose If glucose level is > 200, give full dose of correction dose and check BG @ 0000 and 0300 DO NOT GIVE for any 2 hours post meal fingerstick blood glucose checks If pt NPO or on continuous enteral/parenteral nutrition - give wit h scheduled fingerstick blood glucose check - dose per table, 2 Units Abdominal Tissue Given 09/21/2018 5:42 PM CDT 2 Units Abdominal Tissue Given 09/21/2018 12:46 PM CDT 09/22/2018 1:32 PM CDT 3 mL ipratropium-albuterol (DUO-NEB) 0.5-3 Given mg/3 mL nebulizer solution 3 mL 3 mL, Inhalation, 4 times daily, First dose on Tue09/19/18 at 1815 3 mL Given 09/22/2018 8:49 AM CDT 3 mL Given 09/21/2018 7:35 PM CDT 09/20/2018 8:21 AM CDT 75 mL/hr 75 mL/hr lactated ringers infusion New Bag 75 mL/hr, Intravenous, Continuous, Starting Tue09/19/18 at 1815, For 48 hours 75 mL/hr 75 mL/hr Rate/Dose Verify 09/20/2018 5:00 AM CDT 75 mL/hr 75 mL/hr Rate/Dose Verify 09/20/2018 12:00 AM CDT 09/22/2018 9:22 AM CDT 200 mg lamoTRIgine (LaMICtal) tablet 200 mg Given 200 mg, Oral, 3 times daily, First dose on Tue09/20/18 at 0415 200 mg Given 09/21/2018 9:06 PM CDT 200 mg Given 09/21/2018 3:36 PM CDT magnesium sulfate IVPB 4 gram (premix) 4 g, Intravenous, at 25 mL/hr, As needed, for magnesium replacement, Starting Tue09/19/18 at 1746, Administer 4 grams over 4 hours for magnesium level less than or equal to 1.4 mg/dL. Repeat magnesium level in AM . Administer only if SCr < 2 within the previous 48 hours and urine output > 20 mL/hour., 09/21/2018 9:06 PM CDT 3 mg melatonin tablet 3 mg Given 3 mg, Oral, Nightly, First dose on Tue09/20/18 at 2100 3 mg Given 09/20/2018 8:42 PM CDT 09/21/2018 9:06 PM CDT 10 mg montelukast (SINGULAIR) tablet 10 mg Given 10 mg, Oral, Nightly, First dose on Tue09/20/18 at 2100 10 mg Given 09/20/2018 8:42 PM CDT 09/22/2018 9:24 AM CDT 1 patch Left Arm nicotine (NICODERM CQ) 21 mg/24 hr 1 Patch patch Applied 1 patch, Transdermal, Administer over 2 4 Hours, Daily, First dose on Tue 8 at 1345, Remove current patch before placing new patch., 1 patch Right Arm Patch Applied 09/21/2018 9:09 AM CDT 1 patch Left Arm Patch Applied 09/20/2018 2:01 PM CDT ondansetron (ZOFRAN) injection 4 mg 4 mg, Intravenous, Every 6 hours PRN, nausea/vomiting (2nd line), Starting 09/19/18 at 1737 polyethylene glycol (GLYCOLAX) packet 1 7 g 17 g, Oral, Daily PRN, constipation, first line therapy, Starting Tue09/19/18 at 1741, In 8 ounces of fluid daily., potassium chloride (KLOR-CON) CR tablet 20-60 mEq 20-60 mEq, Oral, As needed, for potassium replacement, Starting Tue09/19/18 at 1746, Administer 20 mEq for potassium level 3.6 to 3.9 mg/dL. Repea t potassium level in AM. Administer 40 mE q for potassium level 3.1 to 3.5 mg/dL. Repeat potassium level 4 hours after last oral dose administered. Administer 60 mEq for potassium level less than or equal to 3. (20 mEq every hour for 3 doses). Repeat potassium level 4 hours after last oral dose administered. Administer only if SCr < 2 within the previous 48 hours and urine output > 20 mL/hour. DO NOT CRUSH OR CHEW., 09/21/2018 9:06 PM CDT 40 mg pravastatin (PRAVACHOL) tablet 40 mg Given 40 mg, Oral, Nightly, First dose on Tue09/20/18 at 2100 40 mg Given 09/20/2018 8:42 PM CDT 09/22/2018 9:22 AM CDT 40 mg predniSONE (DELTASONE) tablet 40 mg Given 40 mg, Oral, Daily, First dose on Tue09/19/18 at 1815, For 5 doses, Give wit h food to reduce GI upset, 40 mg Given 09/21/2018 9:08 AM CDT 40 mg Given 09/20/2018 8:25 AM CDT prochlorperazine (COMPAZINE) injection 5-10 mg 5-10 mg, Intravenous, Every 4 hours PRN , nausea/vomiting (1st line), Starting 09/19/18 at 1737, May repeat 5 mg dose x 1 after 30 minutes if first dose ineffective. Do not exceed a total dose of 40 mg within a 24 hour period. Rate of administration should not exceed 5 mg/minute., prochlorperazine (COMPAZINE) injection 5-10 mg 5-10 mg, Intramuscular, Every 4 hours PRN, nausea/vomiting (1st line), Starting Tue09/19/18 at 1737, Administer if patient does not have IV access. May repeat 5 mg dose x 1 after 60 minutes if first dose ineffective. D o not exceed a total dose of 40 mg within a 24 hour period., prochlorperazine (COMPAZINE) suppositor y 25 mg 25 mg, Rectal, Every 12 hours PRN, nausea/vomiting (1st line), Starting 09/19/18 at 1737, Administer if patient does not have IV access and refuses IM injection., 09/22/2018 9:23 AM CDT 1,200 mg rufinamide (BANZEL) tablet 1,200 mg Given 1,200 mg, Oral, 2 times daily, First dose on Tue09/20/18 at 0900 1,200 mg Given 09/21/2018 9:06 PM CDT 1,200 mg Given 09/21/2018 9:00 AM CDT senna-docusate (PERICOLACE) 8.6-50 mg 1 tablet 1 tablet, Oral, 2 times daily PRN, constipation, if no bowel movement afte r 24 hours of first line therapy, Startin g Tue09/19/18 at 1741, ., sodium phosphate 30 mmol in dextrose (D5W) 5 % 150 mL IVPB 30 mmol, Intravenous, at 53.33 mL/hr, A s needed, phosphorus < 1 and K+ WNL, Starting Tue09/19/18 at 1746, Infuse over 4 hours. Recheck Phosphorus level 1 hour after final infusion and the following AM. Notify Resident or Attending Physician with next rounds. For ICU only. DO NOT REFRIGERATE, 09/19/2018 10:00 PM CDT sterile water irrigation irrigation Given solution Starting Tue09/19/18 at 2154, For 1 dose, Created by cabinet override, 09/21/2018 3:36 PM CDT 50 mg SUMAtriptan (IMITREX) tablet 50 mg Given 50 mg, Oral, As needed, migraine, Starting Sarah 09/21/18 at 1257, Route Sales Trainee rec's: If a satisfactory response has not been obtained at 2 hours, a second dose may be administered. The total daily dose should not exceed 200 mg, , 09/22/2018 5:46 AM CDT 225 mg venlafaxine (EFFEXOR-XR) 24 hr capsule Given 225 mg 225 mg, Oral, Every morning, First dose on Tue09/20/18 at 0700, DO NOT CRUSH O R CHEW., 225 mg Given 09/21/2018 5:36 AM CDT 225 mg Given 09/20/2018 6:50 AM CDT documented in this encounter
--- OUTSIDE RECORDS SUMMARY | 2020-02-11 03:10 | XMS REPORT | Encounter Summary ---
Author Author [facility] Organization [facility] Address Unknown Phone Unavailable Care Team Providers Care Home Stager Name Role Phone EldonFreedom correa PCP Encounter Details Care Team Description Date Type Department Samy Tsai MD [address] [address] [phone] 09/27/2018 Telephone [facility] [address] [place], [place] [address] Social History Date Tobacco Use Types Packs/Day [...] encounter Miscellaneous Notes * Telephone Encounter - Samy Tsai MD - 09/27/2018 2:38 PM CDT I agree that levofloxacin and the quinolone class of antibiotics can lower seizu re threshold. She will need to discuss with the prescribing physician if there is an alternative antibiotic that can be used for her infection that is not a qu inolone. * Telephone Encounter - Samy Tsai MD - 09/27/2018 1:47 PM CDT What is the antibiotic? * Telephone Encounter - Beni Ramos MA - 09/27/2018 1:31 PM CDT Massimo Tsai Patient Summer Cullen is concerned about antibiotics prescribed to her from the hospital a day ago. They advised her to talk to Hortencia Stewart about taking the m edication. She suggested that she stop. So she has been off for 2 days. Now Latisha toledo is concerned of the what the alternative is because she "wants to get better" . Hortencia is unavailable at the moment and this is the patient second call in a few hours. Patient Summer Cullen 1970 Trying to get suggestion of antibiotic alternative please. Thanks Beni documented in this encounter Plan of Treatment Care Team Description Date Type Specialty Hortencia Stewart, REHAB TECH [address] [address] [phone] 03/31/2020 Office Visit Neurology documented as of this encounter Visit Diagnoses Not on filedocumented in this encounter
--- OUTSIDE RECORDS SUMMARY | 2020-02-11 03:10 | XMS REPORT | Encounter Summary ---
Author Author [facility] Organization [facility] Address Unknown Phone Unavailable Care Team Providers Care Tool And Production Planner Name Role Phone EldonFreedom correa PCP Encounter Details Care Team Description Date Type Department Hortencia Stewart APRN [address] [address] [phone] 09/27/2018 Telephone [facility] [address] [facility] [address] [place], [place] [address] Social History Date Tobacco Use Types Packs/Day [...] Miscellaneous Notes * Telephone Encounter - Hortencia Stewart APRN - 09/28/2018 8:32 AM CDT She needs to go through whoever originally prescribed the levofloxacin or her PC P to get an alternative. * Telephone Encounter - Beni Ramos MA - 09/27/2018 9:54 AM CDT Toy Burnett, Patient Summer Cullen called and states she spoke with you yesterday about to d iscontinue the use of an antibiotic she received from the hospital. But she woul d like an alternative because she feels "how can she get better". Please advise me on what I should tell her. Patient Summer Cullen 1970 Thanks Beni documented in this encounter Plan of Treatment Care Team Description Date Type Specialty Hortencia Stewart, ASSOCIATE BIOLOGICAL SALES [address] [address] [phone] 03/31/2020 Office Visit Neurology documented as of this encounter Visit Diagnoses Not on filedocumented in this encounter
--- OUTSIDE RECORDS SUMMARY | 2020-02-11 03:10 | XMS REPORT | Encounter Summary ---
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, intractable (HCC) 12/11/2018 Office Visit [facility] Neurol ogy [address] [facility] [address] [place] [address] Social History Date Tobacco Use Types Packs/Day [...] Signs Reading Time Taken Comments Vital Sign 123/69 12/11/2018 11:12 AM TOWBOAT PILOT Blood Pressure 100 12/11/2018 11:12 AM TOWBOAT PILOT Pulse - - Temperature - - Respiratory Rate - - Oxygen Saturation - - Inhaled Oxygen Concentration 84.5 kg (186 lb 3.2 oz) 12/11/2018 11:12 AM TOWBOAT PILOT Weight 160 cm (5' 3") 12/11/2018 11:12 AM TOWBOAT PILOT Height 32.98 12/11/2018 11:12 AM TOWBOAT PILOT Body Mass Index documented in this encounter Progress Notes * Hortencia Stewart, COLLECTIONS AGENT - 12/11/2018 11:00 AM TOWBOAT PILOT Patient Name: Summer Cullen Age: 48 y.o. Sex: female CC: Seizures HPI: Summer Cullen is a 48 y.o.-year-old, right-handed female seen today in our [facility] [place] clinic for follow-up regarding her history of [...] prior occasions with video EEG monitoring, at [facility] in 1996, [facility] in 2010 and at [facility] by Dr. Oumar Babcock in [...] and without contrast enhancement on May 06, 2011. This showed bifrontal encephalomalacia was worse over the right frontal region with evidence of a previous craniotomy. Encephalomalacia appears to be due to her invasive monitoring in the past and t his would represent a complication of that procedure. There is no evidence for mesial temporal sclerosis. Neuropsychological testing performed 2011 s howed cognitive changes but no clear lateralized pattern of dysfunction. At her last visit with me August 31, 2018, she reported continuing to have seizu res at least 3 times a month. At the time she was taking Chantix so I was saji rned that this could have been contributing to her increased frequency of breakt hrough seizures, as well as a possible UTI having contributed to 7 seizures she had in the week prior to her last visit. She reports today that she stopped celina ing the Chantix right after the last visit. Also at that visit we increased her Banzel to 1200 mg twice daily and increased her VNS settings. She has not real ly noticed a change in her seizure frequency with either of these interventions. She continues to have seizures at least 3 times a month. She indicates she had 3 seizures this last weekend which she attributes to the significant change in cold weather and heavy snowfall that we had which ultimately makes her breathing more difficult. She thinks at least 2 of these seizures were staring spells and possibly 1 was a convulsion. There was no tongue biting, no bowel or bladder incontinence and no muscle discomfort after the seizures. She was not injured and did not fall out of her chair with any of them. She was sitting watching TV and just possibly lost track of time briefly. Otherwise, she is tolerating her antiseizure medications at the current doses. There are no new neurological sy mptoms. On September 19, 2018 she was admitted to the hospital for possible acute kidney i njury, which she describes as ultimately being a "bruised kidney" that she susta ined after having a bigger seizure. Initially her BUN/creat were 25/1.6 and wit h hydration normalized over 2 days to 15/0.8. She indicates prior to the admiss ion she had taken too much of her pain medication which made her somnolent, she knocked over her water which landed on her seizure medications which she then sh e could not take because they had dissolved so she may have been without her sei zure medications for a few days prior which led to the bigger seizure. She was hospitalized for 4 days. Then shortly after getting home she was started on an antibiotic and began throwing up, developed aspiration pneumonia and has since r ecovered from this and has otherwise been compliant with her antiseizure regimen . She saw her sleep specialist again, and has now been started on Bi-pap with oxyg en at night. She is able to wear this for about 3 hours total each night before she is too uncomfortable to keep it on. It has been felt that both her seizure control and migraine control are significantly worsened by her untreated sleep apnea. 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 2 tablet 0 rufinamide (BANZEL) 200 MG tablet Take 7 tablets (1,400 mg total) by mouth 2 (two) times a day. 1260 tablet 3 simvastatin (ZOCOR) 20 MG tablet [...] 3; Lips swell and blister Examination: Vitals: 12/11/18 1112 BP: 123/69 Pulse: 100 Weight: 84.5 kg (186 lb 3.2 oz) Height: 1.6 m (5' 3") Body mass index is 32.98 kg/m. Ms. Cullen is awake, alert, and interactive on examination. Her mental status is intact to conversation. Her speech is clear, and her language shows no defic its of comprehension. Her pupils are equal, round, and reactive to light. Her extraocular eye movements are full in all directions without nystagmus. Her fac e is symmetric at rest and with activation. Her hearing is intact to conversatio n. Her palate elevates symmetrically. Her tongue protrudes in the midline. He r muscle bulk and tone are normal throughout. Her strength is 5/5 in proximal a nd distal muscle groups in all four limbs. Her sensation is intact to light chel ch throughout. Finger to nose and rapid alternating movements are intact bilate rally. Her gait was normal and narrow based with an intact tandem gait. I interrogated and reprogrammed her vagal nerve stimulator. The stimulation int ensity was 2.25 mA (increased to 2.5 mA). Frequency of 30 Hz (decreased to 20 Hz) and a pulse width of 250 s. On time is 30 seconds with an off time of 1.1 minutes. Magnet current strength was 2.5 mA (reprogrammed to 2.75). Magnet on time of 60 seconds and a magnet pulse width of 500 s (decreased to 250 s). System diagnostics reveal no problems and the generator was replaced on 02/25/20 16. There is 25-50% (close to 50%) of the service remaining. She tolerated sev eral cycles of this new setting in the clinic without complaints of side effects . IMPRESSION/PLAN: Summary: Summer Cullen is a 48 y.o.-year-old, right-handed female with refractory epil epsy of cryptogenic cause. Inpatient video EEG monitoring on 3 past occasions a [facility] 1996, [facility] in 2010, and [facility] in May did not clarify her localization [...] of mesial temporal sclerosis. Neuropsychological t esting June 07 showed cognitive changes but no clear lateralized pattern of dysf unction. 1) Partial onset Intractable epilepsy vs. Generalized: The addition of Banzel to her regimen has made some improvement in her seizure frequency so will increa se further to 1400 mg BID. If further seizures breakthrough I would favor optim izing this to 1600 mg BID. If after taking 1600 mg BID, she continues having se izures she understands to give our office a call and I would favor adding a thir d antiseizure medication, possibly Briviact. I sent a new prescription for Banz el with refills to [facility] where she gets this filled. Gisela will continue her lamotrigine 200 mg 3 times daily. She also takes folic acid 1 mg daily to prev ent neural tube defects if she were to become . She is no longer taking Chantix and has resumed smoking. I counselled her on t he importance of smoking cessation for numerous health reasons, specifically the effect continued smoking has on her already very poor lung health. She will fo llow-up with her primary care provider and discuss an alternate approach to smok ing cessation since Chantix may have increased her seizure frequency. I have encouraged her to continue trying to consistently increase her compliance with the treatment of her sleep apnea, emphasizing the connection with her slee p apnea and her seizure and migraine control. I informed and she understands that state driving laws in [place] and [place] re strict driving for 6 months following an episode of altered awareness. Addition ally, she understands she should exercise caution and avoid situations that coul d be dangerous if a seizure were to occur such as swimming without a trained lif eguard present, unsupervised bathing in a bathtub, climbing tall heights or arturo ers, operating dangerous machinery or exposure to open heat sources. 2) Migraines - She does not mention that her migraines have been a significant issue recently. She most recently has been prescribed prochlorperazine for this which seems to have helped. If these do not remain controlled, I have again re commended she see one of our migraine specialists and placed this referral At a prior visit but she did not see anyone in our migraine center. Also she did no t have the brain MRI I ordered previously. If her migraines worsen again in the future, will repeat brain MRI w/wo contrast and again place referral to our [facility]. I would like to see her back in 3 months to see how she is doing but she underst ands if things are not going well in the interim she should contact our office s ooner. Over 50% of this 45 minute visit was spent counseling the patient and her family , coordinating care and discussing the treatment plan. Time in 1145 Time out 84510 OAT PILOT documented in this encounter Plan of Treatment Care Team Description Date Type Specialty Hortencia Stewart APRN [address] [facility] [address] [place] [address] [phone] 03/31/2020 Office Visit Neurology documented as of this encounter Visit Diagnoses Diagnosis Partial epilepsy with impairment of con sciousness, intractable (HCC) Localization-related (focal) (partial) epilepsy and epileptic syndromes with complex partial seizures, with intractable epilepsy documented in this encounter
--- OUTSIDE RECORDS SUMMARY | 2020-02-11 03:10 | XMS REPORT | Encounter Summary ---
Author Author [facility] Organization [facility] Address Unknown Phone Unavailable Care Team Providers Care Implant Polisher Name Role Phone EldonFreedom correa PCP Encounter Details Care Team Description Date Type Department Hortencia Stewart, HOOK TENDER [address] [facility] [address] [place] [address] [phone] 09/26/2018 Telephone [facility] ogy [address] [place] [address] Social History Date Tobacco Use Types Packs/Day [...] encounter Miscellaneous Notes * Telephone Encounter - Janel Demarco MA - 09/27/2018 8:11 AM CDT Related message to pt. * Telephone Encounter - Janel Demarco MA - 09/26/2018 3:06 PM CDT Pt called and stated that while in ER she was given Levofloxacin and want to kno w if it's ok to continue to take. documented in this encounter Plan of Treatment Care Team Description Date Type Specialty Hortencia Stewart, HOOK TENDER [address] [address] [phone] 03/31/2020 Office Visit Neurology documented as of this encounter Visit Diagnoses Not on filedocumented in this encounter
--- OUTSIDE RECORDS SUMMARY | 2020-02-11 03:10 | XMS REPORT | Encounter Summary ---
Author Author [facility] Organization [facility] Address Unknown Phone Unavailable Care Team Providers Care Tableau Analyst Name Role Phone Freedom Villarreal PCP Encounter Details Care Team Description Date Type Department Samy Tsai MD [address] [place], [place] [phone] 09/27/2018 Telephone [facility] ogy [address] [place], [place] [id number] Social History Date Tobacco Use Types Packs/Day [...] Encounter - Janel Demarco MA - 09/27/2018 10:05 AM CDT Returned pt daughter call concerning her mom having anxiety attacks, lvm to call back. documented in this encounter Plan of Treatment Care Team Description Date Type Specialty Hortencia Stewart APRN [address] [facility] [address] [place], [place] [id number] 03/31/2020 Office Visit Neurology documented as of this encounter Visit Diagnoses Not on filedocumented in this encounter
--- OUTSIDE RECORDS SUMMARY | 2020-02-11 03:11 | XMS REPORT | Encounter Summary ---
Author Author [facility] Organization [facility] Address Unknown Phone Unavailable Care Team Providers Care Fire Control Assistant Name Role Phone Freedom Villarreal PCP Reason for Visit * Reason Comments Other Encounter Details Care Team Description Date Type Department Samy Tsai MD [address] [address] [phone] Other 06/16/2017 Refill [facility] Neurol ogy [address] [place] [address] Social History Date Tobacco Use Types Packs/Day Years Used Current Every Day Smoker Cigarettes 0.75 28 [...] Date Type Specialty Hortencia Stewart, CARRIE [address] [address] [phone] 03/31/2020 Office Visit Neurology documented as of this encounter Visit Diagnoses Not on filedocumented in this encounter
--- OUTSIDE RECORDS SUMMARY | 2020-02-11 03:11 | XMS REPORT | Encounter Summary ---
Author Author [facility] Organization [facility] Address Unknown Phone Unavailable Care Team Providers Care Litigation Examiner Name Role Phone EldonFreedom correa PCP Reason for Visit * Reason Comments Other Encounter Details Care Team Description Date Type Department Samy Tsai MD [address] [facility] [address] [place], [place] [id number] Other 12/02/2017 Refill [facility] Neurol ogy [address] [place] [address] Social History Date Tobacco Use Types Packs/Day [...] encounter Miscellaneous Notes * Telephone Encounter - Mariza Louis MA - 12/07/2017 4:03 PM WINDOWS DESKTOP ENGINEER Received phone call from pharmacy they did not receive script gave verbal order. OWS DESKTOP ENGINEER documented in this encounter Plan of Treatment Care Team Description Date Type Specialty Hortencia Stewart APRN [address] [facility] [address] [place], [place] [phone] 03/31/2020 Office Visit Neurology documented as of this encounter Visit Diagnoses Diagnosis Partial epilepsy with impairment of con sciousness, intractable (HCC) Localization-related (focal) (partial) epilepsy and epileptic syndromes with complex partial seizures, with intractable epilepsy documented in this encounter
--- OUTSIDE RECORDS SUMMARY | 2020-02-11 03:11 | XMS REPORT | Encounter Summary ---
Author Author [facility] Organization [facility] Address Unknown Phone Unavailable Care Team Providers Care Airline Attendant Name Role Phone EldonFreedom correa PCP Encounter Details Care Team Description Date Type Department Samy Tsai MD [address] [facility] [address] [place], [place] [phone] 04/07/2016 Telephone [facility] [address] [place], [place] [phone] Social History Date Tobacco Use Types Packs/Day [...] encounter Miscellaneous Notes * Telephone Encounter - Adriana Frausto - 04/07/2016 8:56 AM CDT Patient called requesting referral for the [facility], the referral was faxed o n 04.07.2016 with last ov and pt contact info. Thank you, Adriana Frausto documented in this encounter Plan of Treatment Care Team Description Date Type Specialty Hortencia Stewart APRN [address] [place], [place] [phone] 03/31/2020 Office Visit Neurology documented as of this encounter Visit Diagnoses Not on filedocumented in this encounter
--- OUTSIDE RECORDS SUMMARY | 2020-02-11 03:11 | XMS REPORT | Encounter Summary ---
Author Author [facility] Organization [facility] Address Unknown Phone Unavailable Care Team Providers Care [employer] Operator Name Role Phone EldonFreedom correa PCP Reason for Visit * Reason Comments VNS Follow-up VNS adjustment. 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, intractable (HCC) (Primary Dx) 03/11/2016 Office Visit [facility] [address] [place], [place] [id number] Social History Date Tobacco Use Types Packs/Day [...] Signs Reading Time Taken Comments Vital Sign 120/69 03/11/2016 8:44 AM CDT Blood Pressure 111 03/11/2016 8:44 AM CDT Pulse - - Temperature - - Respiratory Rate - - Oxygen Saturation - - Inhaled Oxygen Concentration 85.3 kg (188 lb) 03/11/2016 8:44 AM CDT Weight 157.5 cm (5' 2") 03/11/2016 8:44 AM CDT Height 34.39 03/11/2016 8:44 AM CDT Body Mass Index documented in this encounter Progress Notes * Samy Tsai MD - 03/11/2016 9:17 AM CDT I saw Summer Cullen in our [facility] for follow-up of her l ocalization-related refractory epilepsy of cryptogenic cause. She is a 45-year- old right-handed woman who has had epilepsy since 21 years of age. She typicall y has generalized tonic-clonic seizures without an aura but she also has complex partial seizures where she will stare. These sound consistent with complex par tial seizures but she does not recall any aura with these either. She has been seen at the [facility] in the past and underwent invasi ve video EEG monitoring in 1995 or 1996 but they were not able to find a single focus for her epilepsy. She underwent repeat video EEG monitoring in February, at [facility]. Four seizures were captured with unclear localization. Most of the seizures were ass ociated with an electro-decremental response. Interictally, independent bitempo ral sharp activity was seen but this was more common over the right versus the l eft temporal region. After discharge from the hospital, she underwent an MRI of the brain with and without contrast enhancement on May 06, 2011. This showed b ifrontal encephalomalacia that was worse over the right frontal region with evid ence of her previous craniotomy. The encephalomalacia appears to be due to her invasive monitoring in the past. There was no evidence for mesial temporal scle rosis. Neuropsychological testing performed on June 07 showed cognitive changes but no clear lateralized pattern of dysfunction. She has not had a PET scan re cently. Prior to a visit with me on January 30, 2016, she had not been seen in my clinic si tne January 29, 2014. In the past she would typically have a couple of seizures per week. I had recommended that she go to the [facility] for a second opinion on whether she might be a candidate for surgical resection for the treatment of her refractory epilepsy. She had not done this and presented to my clinic because of an increase in seizures where she could have 2-3 seizures per day. I interroga monie her vagal nerve stimulator and determined that the battery had reached end o f service and this was most likely the reason for the increase in seizures. She underwent generator replacement on February 25, 2016. I saw her back that same day and started reprogramming her stimulator and we are currently in the process of titrating the settings. I saw her last week on March 04. She states that in the past week, she has tolera monie the increased setting on the vagal nerve stimulator but her seizures continu e to be more frequent than usual for her. She reports no new neurological sympto ms. Past medical history: 1. History of kidney stones on multiple occasions 2. Status post tubal ligation 3. Status post vagal nerve stimulator implantation 4. Depression 5. Migraine headaches Allergies: Doxycycline and Tylenol Medications: 1. Lamictal 200 mg p.o. t.i.d. 2. Topamax 200 mg p.o. t.i.d. 3. Depo shot 4. Effexor XR 150 mg p.o. once daily 5. Vitamin D and calcium 6. Folic acid 400 g by mouth once daily 7. Zocor 20 mg by mouth once daily 8. Coreg 6.25 mg by mouth once daily She has tried Dilantin, Tegretol, Phenobarbital, Depakote, Potiga, and Keppra in the past. She thinks that she may have tried Vimpat but she is not entirely delta e. She thinks that this may have increased her seizure frequency so it was disco ntinued. She has not tried Zonisamide. Family history: There is no family history of seizures Social history: She lives in [place] by herself. She smokes approximately one pack of cigarettes per day and has been smoking for the past 22 years. She does not drink alcohol or use illicit drugs. She is on disability. Examination: Filed Vitals: 03/11/16 0844 BP: 120/69 Pulse: 111 Height: 1.575 m (5' 2") Weight: 85.276 kg (188 lb) Body mass index is 34.38 kg/(m^2). On examination, she was well-appearing and in no acute distress. Her speech was fluent and articulate. She was alert and able to relate reasonable details of h er interval medical history. Her pupils were equal round and reactive to light and her extraocular movements were full with no significant nystagmus. Her face moved symmetrically. Her palate elevated symmetrically and her tongue was midl ine. She had no drift and no asterixis. Her ejifzj-oh-zjjy, rmrd-vx-iyic, and rapid alternating movements were intact. She ambulated with a wheelchair today b ecause of her lacerated right foot. I interrogated and reprogrammed her vagal nerve stimulator. The stimulation inte nsity was 1.25 mA which I increased to 1.50 mA with a frequency of 30 Hz and a p ulse with the 500 s. The on time is 30 seconds with an off time of 5 minutes. The magnet current strength was 1.50 mA and I increased to 1.75 mA with an on-ti me of 60 seconds and a pulse width of 500 s. Her settings in the past were the following: The stimulation intensity was 2.0 milliamps. The frequency was 30Hz with a pulse width of 500 microseconds. The on time is 30 seconds with an off ti me of 1.1 minutes. The magnet current strength was 2.25 milliamps with an on ti me of 60 seconds and a pulse width of 500 s. Systems diagnostics revealed no p roblems and the generator was replaced on 02/25/16 and there is 100% of service r emaining. In summary, Summer Cullen is a 45-year-old right-handed woman with refractory l ocalization related epilepsy of cryptogenic cause. Her inpatient video EEG monit oring in the past did not clarify her localization because there was an electrod ecremental response seen. Overall, I suspect that she has a frontal lobe focus but her EEG shows bilateral abnormalities and her other testing has not helped g evens valle in determining a possible focus for her seizures. I have recommended in the past that she be seen at the [facility] to see if they can do additional t esting to determine whether she might be a surgical candidate for the treatment of her refractory epilepsy. She has not done this. I increased her vagal nerve stimulator today. I attempted to increase her vagal nerve stimulator to 1.75 mA but she was not able to tolerate that much of an inc rease. Therefore I increased it to 1.50 mA. The magnet current strength has been increased to 1.75 mA. I will see her back in approximately one week to continue titrating her vagal nerve stimulator. Our eventual goal is to resume her previo us settings gradually and hopefully this will result in some improvement in her seizures back to her typical baseline. documented in this encounter Plan of Treatment Care Team Description Date Type Specialty Hortencia Stewart, DIRECT MAIL MANAGER [facility] [address] [address] [phone] 03/31/2020 Office Visit Neurology documented as of this encounter Visit Diagnoses Diagnosis Partial epilepsy with impairment of con sciousness, intractable (HCC) Localization-related (focal) (partial) epilepsy and epileptic syndromes with complex partial seizures, with intractable epilepsy documented in this encounter
--- OUTSIDE RECORDS SUMMARY | 2020-02-11 03:11 | XMS REPORT | Encounter Summary ---
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, intractable (HCC) (Primary Dx) 03/17/2016 Office Visit [facility] [address] [place] [address] Social History Date Tobacco Use Types Packs/Day [...] Signs Reading Time Taken Comments Vital Sign 132/83 03/17/2016 2:47 PM CDT Blood Pressure 103 03/17/2016 2:47 PM CDT Pulse - - Temperature - - Respiratory Rate - - Oxygen Saturation - - Inhaled Oxygen Concentration 86.2 kg (190 lb) 03/17/2016 2:47 PM CDT Weight 157.5 cm (5' 2") 03/17/2016 2:47 PM CDT Height 34.75 03/17/2016 2:47 PM CDT Body Mass Index documented in this encounter Progress Notes * Samy Tsai MD - 03/17/2016 3:08 PM CDT I saw Summer Cullen in our [...] either. She has been seen at the [facility] in the past and underwent invasi ve video EEG monitoring in 1995 or 1996 but they were not able to find a single focus for her epilepsy. She underwent repeat video EEG monitoring in February, at [facility]. Four seizures were captured with unclear [...] had recommended that she go to the [facility] for a second opinion on whether [...] I saw her last week on March 11, 2016 and increase the settings on her vagal ner ve stimulator. Since that visit, she thinks that her seizures have started to be come less frequent and milder so it appears that the vagal nerve stimulator is s tarting to work in decreasing her seizures back to her typical baseline. However , in the last week, she developed flank pain and was seen in her local emergency room and was diagnosed with bilateral kidney stones. She has been taking Percoc et as needed in this seems to help. She is scheduled to see a urologist in the n ear future. Past medical history: 1. History of kidney [...] Coreg 6.25 mg by mouth once daily 9. Percocet as needed for kidney stones She has tried Dilantin, Tegretol, Phenobarbital, Depakote, Potiga, and Keppra in the past. She thinks that she may have tried Vimpat but she is not entirely delta e. She thinks that this may have increased her seizure frequency so it was disco ntinued. She has not tried Zonisamide. Family history: There is no family history of seizures Social history: She lives in [facility] by herself. She smokes approximately one pack of cigarettes per day and has been smoking for the past 22 years. She does not drink alcohol or use illicit drugs. She is on disability. Examination: Filed Vitals: 03/17/16 1447 BP: 132/83 Pulse: 103 Height: 1.575 m (5' 2") Weight: 86.183 kg (190 lb) Body mass index is 34.74 kg/(m^2). On examination, she was well-appearing and in no acute distress. Her speech was fluent and articulate. She was alert and able to relate reasonable details of he r interval medical history. Her pupils were equal round and reactive to light a nd her extraocular movements were full with no significant nystagmus. Her face moved symmetrically. Facial sensation was intact. Her palate elevated symmetric ally and her tongue was midline. She had no drift and no asterixis. Her finger -to-nose, eiwk-kh-ylme, and rapid alternating movements were intact. Her gait wa s normal and narrow based with an intact tandem gait. More than 50% of this 25 minute visit was spent counseling the patient regarding the continued medical ma nagement of her epilepsy and answering questions. I interrogated and reprogrammed her vagal nerve stimulator. The stimulation inte nsity was 1.50 mA which I increased to 1.75 mA with a frequency of 30 Hz and a p ulse with the 500 s. The on time is 30 seconds with an off time of 5 minutes w hich I decreased to 1.1 minutes. The magnet current strength was 1.75 mA which I increased to 2.0 mA with an on-time of 60 seconds and a pulse width of 500 s. Her settings in the past were the following: The stimulation intensity was 2.0 milliamps. The frequency was 30Hz with a pulse width of 500 microseconds. The on time is 30 seconds with an off time of 1.1 minutes. The magnet current strength was 2.25 milliamps with an on time of 60 seconds and a pulse width of 500 s. Systems diagnostics revealed no problems and the generator was replaced on 02/24 and there is nearly 100% of service remaining. In summary, Summer Cullen is a 45-year-old [...] her other testing has not helped g uide us in determining a possible focus for her seizures. I have recommended in the past that she be seen at the [facility] to see if they can do additional t esting to determine whether she might be a surgical candidate for the treatment of her refractory epilepsy. She has not done this. Today, I again reinforced burke t she ought to be seen at the [facility] or [facility] to determine if eugene schafer might be a surgical candidate. This is all the more important given that she h as developed kidney stones recently that are most likely due to her Topamax. How ever, if I taper her off of the Topamax, this would likely result in worsened se izures. I told her that I am fine with continuing with more medications but at t his stage, studies have shown that more medications are unlikely to render her s eizure free although there might be some mild improvement in her seizure frequen cy. However, if she is a candidate for resective surgery for the treatment of he r epilepsy this would afford her a much better chance of seeing a significant im provement in her seizure frequency with the possibility of achieving seizure gilmar edom. I reprogrammed her vagal nerve stimulator and I will see her back in 6 mon ths to see how things are going. She knows that if her seizures do not continue to improve, she will contact my office and we will increase her vagal nerve stim ulator further. However, these are palliative steps and ultimately she will cont inue to have seizures unless she is a candidate for surgery. Also, she will call my office and return to see me sooner if the urologist is insistent that she get off of the Topamax. As long as no damage is being done to her kidneys, then she may elect to continue on the Topamax given that her seizures will likely worsen if we discontinue the Topamax. documented in this encounter Plan of Treatment Care Team Description Date Type Specialty Hortencia Stewart, MILK PASTEURIZER [address] [address] [phone] 03/31/2020 Office Visit Neurology documented as of this encounter Visit Diagnoses Diagnosis Partial epilepsy with impairment of con sciousness, intractable (HCC) Localization-related (focal) (partial) epilepsy and epileptic syndromes with complex partial seizures, with intractable epilepsy documented in this encounter
--- OUTSIDE RECORDS SUMMARY | 2020-02-11 03:11 | XMS REPORT | Encounter Summary ---
Author Author [facility] Organization [facility] Address Unknown Phone Unavailable Care Team Providers Care Cash Manager Name Role Phone EldonFreedom correa PCP Reason for Visit * Reason Comments Medication Refill Encounter Details Care Team Description Date Type Department Samy Tsai MD [address] [facility] [address] [place] [address] [phone] Medication Refill 01/18/2017 Refill [facility] ogy [address] [address] Social History Date Tobacco Use Types Packs/Day [...] Date Type Specialty Hortencia Stewart, CARRIE [address] [facility] [address] [address] [phone] 03/31/2020 Office Visit Neurology documented as of this encounter Visit Diagnoses Diagnosis Partial epilepsy with impairment of con sciousness, intractable (HCC) Localization-related (focal) (partial) epilepsy and epileptic syndromes with complex partial seizures, with intractable epilepsy documented in this encounter
--- OUTSIDE RECORDS SUMMARY | 2020-02-11 03:11 | XMS REPORT | Encounter Summary ---
Author Author [facility] Organization [facility] Address Unknown Phone Unavailable Care Team Providers Care Food Products Tester Name Role Phone EldonFreedom correa PCP Reason for Visit * Reason Comments Seizures Follow-up Follow up for seizures & to " turn up stimulater ". Pt states she is feeling worse - had more seizures. 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, intractable (HCC) (Primary Dx) 03/04/2016 Office Visit [facility]rol [facility] [address] [place] [address] Social History Date Tobacco Use Types Packs/Day [...] Signs Reading Time Taken Comments Vital Sign 114/62 03/04/2016 9:32 AM CDT Blood Pressure 97 03/04/2016 9:32 AM CDT Pulse - - Temperature - - Respiratory Rate - - Oxygen Saturation - - Inhaled Oxygen Concentration 85.3 kg (188 lb) 03/04/2016 9:32 AM CDT Weight 157.5 cm (5' 2") 03/04/2016 9:32 AM CDT Height 34.39 03/04/2016 9:32 AM CDT Body Mass Index documented in this encounter Progress Notes * Samy Tsai MD - 03/04/2016 10:11 AM CDT I saw Summer Cullen in [...] either. She has been seen at the [facility] in the past and underwent invasi ve video EEG monitoring in 1995 or 1996 but they were not able to find a single focus for her epilepsy. She underwent repeat video EEG monitoring in February, at [facility]. Four seizures were captured with unclear localization. [...] not been seen in my clinic si kye January 29, 2014. In the past she would typically have a couple of seizures per week. I had recommended that she go to the [facility] for a second opinion on whether [...] in the process of titrating the settings. She states that since that visit, she is tolerating the stimulator well but she continues to have frequent seizures and a seizure earlier this morning resulted in her lacerating her right foot. She is planning on going to the emergency room later today to have this checked. In the past she has broken her foot many times because of seizures so she will have this looked at. Past medical history: 1. History of kidney [...] of seizures Social history: She lives in [facility] by herself. She smokes approximately one pack of cigarettes per day and has been smoking for the past 22 years. She does not drink alcohol or use illicit drugs. She is on disability. Examination: Filed Vitals: 03/04/16 0932 BP: 114/62 Pulse: 97 Height: 1.575 m (5' 2") Weight: 85.276 [...] had no drift and no asterixis. Her uynfjq-nr-uotp, hnqk-pt-zibp, and rapid alternating movements were intact. She ambulated with a wheelchair today b ecause of her lacerated right foot. I interrogated and reprogrammed her vagal nerve stimulator. The stimulation inte nsity was 0.75 mA and I increased this to 1.25 mA with a frequency of 30 Hz and a pulse with the 500 s. The on time is 30 seconds with an off time of 5 minute s. The magnet current strength was 1.0 mA and I increased this to 1.50 mA with a n on-time of 60 seconds and a pulse width of 500 s. Her settings in the past w ere the following: The stimulation intensity was 2.0 milliamps. The frequency wa s 30Hz with a pulse width of 500 microseconds. The on time is 30 seconds with an off time of 1.1 minutes. The magnet current strength was 2.25 milliamps with an on time of 60 seconds and a pulse width of 500 s. Systems diagnostics revealed no problems and the generator was replaced on 02/25/16 and there is 100% of se rvice remaining. In summary, Summer Cullen is a [...] her other testing has not helped g toreyde us in determining a possible focus for her seizures. I have recommended in the past that she be seen at the [facility] to see if they can do additional t esting to determine whether she might be a surgical candidate for the treatment of her refractory epilepsy. She has not done this. I increased her vagal nerve stimulator today. I will see her back in one week to continue the titration of the vagal nerve stimulator. We will try to resume her previous settings gradually and hopefully this will result in some improvement in her seizures back to her typical baseline. She is going to the emergency room later today to have her foot looked at to make sure that there are no new fract ures and to see if she might need antibiotics for the foot laceration. documented in this encounter Plan of Treatment Care Team Description Date Type Specialty Hortencia Stewart, WREATH AND GARLAND MAKER [address] [address] [phone] 03/31/2020 Office Visit Neurology documented as of this encounter Visit Diagnoses Diagnosis Partial epilepsy with impairment of con sciousness, intractable (HCC) Localization-related (focal) (partial) epilepsy and epileptic syndromes with complex partial seizures, with intractable epilepsy documented in this encounter
--- OUTSIDE RECORDS SUMMARY | 2020-02-11 03:11 | XMS REPORT | Encounter Summary ---
Author Author [facility] Organization [facility] Address Unknown Phone Unavailable Care Team Providers Care School Health Assistant Name Role Phone EldonFreedom correa PCP Encounter Details Care Team Description Date Type Department Samy Tsai MD [address] [facility] [address] [place], [place] [id number] 06/21/2016 Telephone [facility] [address] [place], [place] [id number] Social History Date Tobacco Use Types Packs/Day [...] Telephone Encounter - Samy Tsai MD - 06/21/2016 10:19 AM CDT I don't think that I need to see her sooner unless she is having issues. I'm sti ll waiting to receive the reports and the results from the testing that she had at the [facility] but overall, she should follow their recommendations on whate ashley they thought that they might be able to do for her. * Telephone Encounter - Nisha Mosley - 06/21/2016 10:07 AM CDT Pt called States has finis testing etc at [facility] and you told her to be seen asa p Her Appt is 09/27/16 and she is on wait list But unless you want to see her sooner she will need to worked in until we get a canx Please advise ok to keep on wait list or add on appt somewhere? thanks documented in this encounter Plan of Treatment Care Team Description Date Type Specialty Hortencia Stewart, CONTENT PUBLISHER [address] [address] [phone] 03/31/2020 Office Visit Neurology documented as of this encounter Visit Diagnoses Not on filedocumented in this encounter
--- OUTSIDE RECORDS SUMMARY | 2020-02-11 03:11 | XMS REPORT | Encounter Summary ---
Author Author [facility] Organization [facility] Address Unknown Phone Unavailable Care Team Providers Care Kindergarten Prep Teacher Name Role Phone Freedom Villarreal PCP Reason for Referral * MRI/CAT/PET Scan (Routine) Referred By Contact Referred To Contact Status Reason Specialty Diagnoses / Procedures Hortencia Stewart APRN [address] [address] [facility] [address] [place] [id number] Closed Radiology Diagnoses Partial epilepsy with impairment of consciousness, intractable (HCC) Intractable migraine with aura without status migrainosus P rocedures MRI Head w wo contrast * Consultation (Routine) Referred By Contact Referred To Contact Status Reason Specialty Diagnoses / Procedures Hortencia Stewart APRN [address] [address] Karmen Miles NP [address] [address] Closed Specialty Services Neurology Diagnoses Required Intractable migraine with aura without status migrainosus Reason for Visit * Reason Comments Follow-up Seizures Encounter Details Care Team Description Date Type Department Hortencia Stewart APRN [address] [address] [phone] Partial epilepsy with impairment of cons ciousness, intractable (HCC) (Primary Dx); Intractable migraine with aura without status migrainosus 08/31/2018 Office Visit [facility] og [address] [place] [address] Social History Date Tobacco Use Types Packs/Day Years Used Current Every Day Smoker Cigarettes 0.75 28 Smokeless Tobacco: Never Used Tobacco Cessation: Ready to Quit: No; Co unseling Given: No Comments: "I've tried everything there is" Drinks/Week [...] Signs Reading Time Taken Comments Vital Sign 141/69 08/31/2018 8:54 AM CDT Blood Pressure 105 08/31/2018 8:54 AM CDT Pulse - - Temperature - - Respiratory Rate - - Oxygen Saturation - - Inhaled Oxygen Concentration 87 kg (191 lb 14.4 oz) 08/31/2018 8:54 AM CDT Weight 160 cm (5' 3") 08/31/2018 8:54 AM CDT Height 33.99 08/31/2018 8:54 AM CDT Body Mass Index documented in this encounter Patient Instructions * Patient Instructions* Hortencia Stewart APRN - 08/31/2018 9:00 AM CDT 1) Double check Banzel dose in your pillbox at home - is it 1000 mg or 1200 twi ce daily currently? If you are already taking 1200 mg twice daily, call our off ice so we can increase your dose to 1400 mg twice daily. 2) Follow-up with your PCP re: Chantix since this has likely increased the freq uency of your seizures and possibly migraines. documented in this encounter Progress Notes * Hortencia Stewart APRN - 08/31/2018 9:00 AM CDT Patient Name: Summer Cullen Age: 48 y.o. Sex: female CC: Seizures HPI: Summer Cullen is a 48 y.o.-year-old, right-handed female seen today in our [facility] clinic for follow-up regarding her [...] prior occasions with video EEG monitoring, at [facility] in 1996, [facility] and at [facility] by Dr. Oumar Babcock in 2015. A clear focus of seizure onset could not be found in any of these evaluations a nd overall it is thought she has a primary generalized form of epilepsy, but jerel anderson if she had a more focal form [...] dysfunction. At her last visit with me January 09, 2018, she reported continuing to have sei zures at least 3 times a month, but in the week prior to that visit she had had 7 seizures which I attributed to the UTI she had at that time. At that visit I increased her VNS settings back to where she had been before the most recent gen erator replacement in 2015, and also recommended she increase her Banzel to 1200 mg twice daily. She tells me today that she continues taking Banzel 1000 mg tw ice daily and never did increase that dose, though it is unclear why as the pres cription I sent to her pharmacy clearly states 1200 mg twice daily. She now tell s me that her prescriptions are coming from "[facility]" and not [facility] and is confident she has only been taking 1000 mg twice daily. She feels like after t hat increased VNS setting in December she did see a decrease in her seizure freq uency. However I noticed today on her medication list is Chantix which she repo rts she started in February. She has cut back on her smoking from > 1 PPD to < 1/2 PPD. However, since that time she has had increased frequency of seizures having 3 or 4 each week. About half of these have been convulsions, and the oth er half represent staring episodes. In the past week, she has had 5 seizures. She also feels like her migraines are occurring more frequently and that possibl y this is triggering her seizures as well. Otherwise, she is tolerating her ant iseizure medications at the current doses. There are no new neurological sympto ms. She saw her sleep specialist again, and [...] Depression Difficulty falling asleep at night until clinical researcher hours Difficulty staying asleep Exercise tolerance finding limited by leg pain--if walking a long way will use electric cart in grocery st [place] Fractures from seizures--leg and ankle fractures in past Head injury concussions from seizures--since age 21 HL (hearing loss) left ear [place]-no hearing aides Kidney stones Migraine Osteoarthritis mainly [...] PROGRAMING; Reyna geon: Sj Vivar MD; Location: [facility] Main OR; Service: ENT; Laterality : N/A; TUBAL LIGATION 1992 FAMILY HISTORY: Family History Problem Relation Age of Onset Hyperlipidemia Mother Migraines Mother Hyperlipidemia Father Diabetes Father Alcohol abuse Father Heart disease Other FAMILY HX Heart disease Other FAMILY HX Rheum arthritis Other FAMILY HX Migraines Cousin SOCIAL HISTORY: Social History Social History Marital [...] Concern Not on file Social History Narrative No narrative on file CURRENT MEDICATIONS: Current Outpatient Prescriptions Medication Sig Dispense Refill ALBUTEROL INHL Inhale as needed. budesonide-formoterol (SYMBICORT) 160-4.5 mcg/actuation inhaler Inhale 2 puf fs 2 (two) times a day. calcium carbonate-vitamin D3 600 mg(1,500mg) -800 unit Tab Take 1 tablet by mouth 3 (three) times a day. carvedilol (COREG) 6.25 MG tablet Take 3.125 mg by mouth 2 (two) times a day . diphenhydrAMINE (BENADRYL) 25 mg capsule Take 50 [...] 3 (three) times a day as needed. lamoTRIgine (LAMICTAL) [...] 8 (eight) hours as needed for nausea. oxyCODONE (ROXICODONE) 5 MG immediate release tablet TK 1 T PO Q 6 HOURS PATEL UND THE CLOCK 0 prochlorperazine (COMPAZINE) 10 MG tablet Take 10 mg by mouth 2 (two) times a day. rufinamide (BANZEL) 200 MG tablet Take 6 tablets (1,200 mg total) by mouth 2 (two) times a day. 1080 tablet 3 simvastatin (ZOCOR) 20 MG tablet Take 20 mg by mouth nightly. solifenacin (VESICARE) 10 MG tablet Take 5 mg by mouth daily. UNABLE TO FIND daily. CENTRUM ADULTS TAKING 1 TAB DAILY. varenicline (CHANTIX) 1 mg tablet Take 1 mg by mouth 2 (two) times a day. venlafaxine (EFFEXOR-XR) 150 MG ER 24 hr capsule Take 225 mg by mouth every morning. No current facility-administered medications for this visit. ALLERGIES: Allergies Allergen Reactions Aspirin Other (See Comments) Interacts with epilepsy meds Tylenol [Acetaminophen] Swelling Tylenol 3; Lips swell and blister Examination: Vitals: 08/31/18 0854 BP: (!) 141/69 BP Location: Left arm Patient Position: Sitting Cuff size: Medium Pulse: (!) 105 Weight: 87 kg (191 lb 14.4 oz) Height: 1.6 m (5' 3") Body mass index is 33.99 kg/m. Ms. Cullen is awake, alert, and [...] nerve stimulator. The stimulation int ensity was 2.00 mA and I reprogrammed this to 2.25 mA. Frequency of 30 Hz and a pulse width of 500 s (decreased to 250 s) . On time is 30 seconds with an off time of 1.1 minutes. Magnet current strength was 2.25 mA and I reprogrammed to 2.5. Magnet on time of 60 seconds and a magnet pulse width of 500 s. Sys tem diagnostics reveal no problems and the generator was replaced on 02/25/2016. There is 25-50% (closest to 50%) of the service remaining. She tolerated sever al cycles of this new setting in the clinic without complaints of side effects. IMPRESSION/PLAN: Summary: Summer Cullen is a 48 y.o.-year-old, right-handed female with refractory epil epsy of cryptogenic cause. Inpatient video EEG monitoring on 3 past occasions a [facility] 1996, [facility] in 2010, and [facility] in May did not clarify her [...] clear lateralized pattern of dysf unction. 1) Intractable epilepsy, partial vs. Generalized: The addition of Banzel to he r regimen has made some improvement in her seizure frequency. When she had an i ncrease in seizure frequency back in December 2017 I had recommended she increas e this dose to 1200 mg twice daily and sent a prescription to this effect, [facility] somehow she has not received this and never did get this higher dose. I have again recommended that we increase her Banzel dose to 1200 mg twice daily and momo nguyen sent a new prescription to the new mail order pharmacy she states fills her prescriptions now. She will continue her lamotrigine 200 mg 3 times daily. She also takes folic acid 1 mg daily to prevent neural tube defects if she were to become . I suspect the Chantix is contributing to her increased frequency of breakthrough seizures. However she feels like it is really helping her quit smoking which s he really needs to do for her COPD. I recommended she can see how her seizure f requency response to this increased VNS setting and increased Banzel. However I have advised her that if she continues to have breakthrough seizures despite th giselle changes, she should follow-up with her primary care provider and discuss an alternate approach to smoking cessation. I have encouraged her to continue trying to consistently increase her compliance with the treatment of her sleep apnea, emphasizing the connection with her slee p apnea and her seizure and migraine control. I informed and she understands that state driving laws in [place] and [place] re strict driving for 6 months following [...] to open heat sources. 2) Migraines - she continues to have difficulty with migraines and has not foun d anything that controls these. She most recently has been prescribed prochlorp erazine for this in the past week. I have recommended she see one of our migrai ne specialists and she agrees with this plan so I have placed this referral. Si bandare it has been several years since she had a brain MRI and she feels her migrai catalina are significantly worse, will repeat brain MRI w/wo contrast. I would like to see her back in 3 months to see how she is doing but she underst ands if things are not going well in the interim she should contact our office s ooner. Over 50% of this 50 minute visit was spent counseling the patient and her family , coordinating care and discussing the treatment plan. Time in 0900 Time out 0950 documented in this encounter Plan of Treatment Care Team Description Date Type Specialty Hortencia Stewart APRN [address] [address] [phone] 03/31/2020 Office Visit Neurology Order Schedule Name Type Priority Associated Diag noses 1 Occurrences starting 08/31/2018 until 08/31/2019 MRI Head w wo contrast Imaging Routine Partial epilepsy with impairment of consciousness, intractable (HCC) Intractable migraine with aura without status migrainosus Order Schedule Name Type Priority Associated Diag noses 1 Occurrences starting 08/31/2018 until 03/01/2019 Amb Referral To Neurology Outpatient Routine Intr actable migraine with Referral aura without status migrainosus documented as of this encounter Visit Diagnoses Diagnosis Partial epilepsy with impairment of con sciousness, intractable (HCC) Localization-related (focal) (partial) epilepsy and epileptic syndromes with complex partial seizures, with intractable epilepsy Intractable migraine with aura without status migrainosus documented in this encounter
--- OUTSIDE RECORDS SUMMARY | 2020-02-11 03:11 | XMS REPORT | Encounter Summary ---
Author Author [facility] Organization [facility] Address Unknown Phone Unavailable Care Team Providers Care Wire Cutter Name Role Phone Freedom Villarreal PCP Encounter Details Care Team Description Date Type Department Samy Tsai MD [address] [facility] [address] [place], [place] [id number] 10/11/2016 Telephone [facility] ogy [address] [place], [place] [id number] Social History Date Tobacco Use Types Packs/Day [...] encounter Miscellaneous Notes * Telephone Encounter - Margie Dobbins MA - 10/11/2016 4:15 PM THERMOGRAPH OPERATOR Relayed both responses to pt. She voiced understanding. MOGRAPH OPERATOR * Telephone Encounter - Samy Tsai MD - 10/11/2016 10:06 AM THERMOGRAPH OPERATOR No, or shots of never been proven to help with epilepsy. If she feels that it does that is fine but that prescription should be obtained from her primary care doctor. As for the Topamax, she should not taper it further if she thinks t hat it is worsening her seizures. She should resume her previous dose. MOGRAPH OPERATOR * Telephone Encounter - Margie Dobbins MA - 10/11/2016 9:00 AM THERMOGRAPH OPERATOR Pt reports by phone that she has been tapering off of the Topamax and is current ly taking 200 mg daily. She has noticed an increase in seizures. She is wonderin g if she should stop the taper and increase the medication. She has been on 200 mg daily for two weeks now. Pt is also requesting a prescription for the Depo-Pr overa shot. She states that she gets the shot every 6 weeks which "helps prevent " her seizures. I explained that you do not prescribe the Depo shot and advised pt to contact the original prescriber's office. Pt states that her pharmacy told her that she should get the medication from her neurologist since it helps with her epilepsy. Please advise. Thanks. MOGRAPH OPERATOR documented in this encounter Plan of Treatment Care Team Description Date Type Specialty Hortencia Stewart, BUILDING PERFORMANCE SPECIALIST [address] [address] [phone] 03/31/2020 Office Visit Neurology documented as of this encounter Visit Diagnoses Not on filedocumented in this encounter
--- OUTSIDE RECORDS SUMMARY | 2020-02-11 03:11 | XMS REPORT | Encounter Summary ---
Author Author [facility] Organization [facility] Address Unknown Phone Unavailable Care Team Providers Care Director Of Capital Giving Name Role Phone EldonFreedom correa PCP Reason for Visit * Reason Comments Medication Refill Encounter Details Care Team Description Date Type Department Samy Tsai MD [address] [facility] [address] [place] [address] [phone] Medication Refill 08/07/2018 Refill [facility] ogy [address] [address] Social History Date Tobacco Use Types Packs/Day [...] Date Type Specialty Hortencia Stewart, CARRIE [address] [facility] [address] [place] [address] [phone] 03/31/2020 Office Visit Neurology documented as of this encounter Visit Diagnoses Diagnosis Partial epilepsy with impairment of con sciousness, intractable (HCC) Localization-related (focal) (partial) epilepsy and epileptic syndromes with complex partial seizures, with intractable epilepsy documented in this encounter
--- OUTSIDE RECORDS SUMMARY | 2020-02-11 03:11 | XMS REPORT | Encounter Summary ---
Author Author [facility] Organization [facility] Address Unknown Phone Unavailable Care Team Providers Care Furnace Maintenance Name Role Phone Freedom Villarreal PCP Encounter Details Care Team Description Date Type Department Samy Tsai MD [address] [facility] [address] [place] [address] [phone] 06/26/2016 Documentation [facility] [address] [place] [address] Social History Date Tobacco Use Types Packs/Day [...] Date Type Specialty Hortencia Stewart APRN [address] [facility] [address] [place] [address] [phone] 03/31/2020 Office Visit Neurology documented as of this encounter Visit Diagnoses Not on filedocumented in this encounter
--- OUTSIDE RECORDS SUMMARY | 2020-02-11 03:11 | XMS REPORT | Encounter Summary ---
Author Author [facility] Organization [facility] Address Unknown Phone Unavailable Care Team Providers Care Financial Institution Treasurer Name Role Phone EldonFreedom correa PCP Reason for Visit * Reason Comments partial epilepsy Encounter Details Care Team Description Date Type Department Samy Tsai MD [address] [address] [phone] Partial epilepsy with impairment of cons ciousness, intractable (HCC) (Primary Dx) 06/30/2016 Office Visit [facility] Neurol o[facility] [address] [place] [address] Social History Date Tobacco Use Types Packs/Day [...] Signs Reading Time Taken Comments Vital Sign 108/74 06/30/2016 2:50 PM CDT Blood Pressure 99 06/30/2016 2:50 PM CDT Pulse - - Temperature - - Respiratory Rate - - Oxygen Saturation - - Inhaled Oxygen Concentration 85.7 kg (189 lb) 06/30/2016 2:50 PM CDT Weight 160 cm (5' 3") 06/30/2016 2:50 PM CDT Height 33.48 06/30/2016 2:50 PM CDT Body Mass Index documented in this encounter Progress Notes * Samy Tsai MD - 06/30/2016 3:30 PM CDT I saw Summer Cullen [facility] for follow-up of her 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 She is a 46-year- old right-handed woman who has had epilepsy since 21 years of age. She typicall y has generalized tonic-clonic seizures without an aura but she also has staring episodes without an aura. She has been seen at the [facility] in the past and underwent invasive video EEG monitoring in 1995 or 1996 but they were not able to find a single focus for her epilepsy. She underwent repeat video EEG monitoring in February, at [facility]. Four seizures were captured with unclear [...] invasive monitoring in the past and this would represent a complication of that procedure . There was no evidence for mesial temporal sclerosis. Neuropsycholo gical testing performed on June 07 showed cognitive changes but no clear lateral ized pattern of dysfunction. She has not had a PET scan recently. Since her last visit with me on March 17, 2016, she has gone to the [facility]. I received a call from Dr. Oumar Babcock who agreed with our EEG findings in that a clear focus of seizure onset could not be found. He overall thought that she had a primary generalized form of epilepsy. Even if she had a more focal for m of epilepsy, a focus cannot be found so she is not a candidate for a resective surgical option. While she was undergoing video EEG monitoring, they had noted desaturations and they think that she most likely has sleep apnea. This could be resulting in sleep deprivation and could be a reason for her recent seizure exa cerbation in addition of the fact that her vagal nerve stimulator battery had re ached end of service. The battery was replaced on February 25, 2016. In addition, b darian they think that she has a primary generalized form of epilepsy, they gloria mmended a trial of Banzel or felbamate and perhaps this would then allow us to g et her off of the Topamax which has triggered kidney stones in the past. She states that she continues to have 3 or 4 of her typical seizures per week. S he reports no other new neurological symptoms. Past medical history: 1. History of kidney [...] of seizures Social history: She lives in [place] by herself. She smokes approximately one pack of cigarettes per day and has been smoking for the past 22 years. She does not drink alcohol or use illicit drugs. She is on disability. Examination: Vitals: 06/30/16 1450 BP: 108/74 Pulse: 99 Weight: 85.7 kg (189 lb) Height: 1.6 m (5' 3") Body mass index is 33.48 kg/(m^2). On examination, she was well-appearing and [...] drift and no asterixis. Her finger -to-nose, [id number], and rapid alternating movements were intact. Her gait wa s normal and narrow based with an intact tandem gait. More than 50% of this 45 minute visit was spent counseling the patient regarding the continued medical ma nagement of her epilepsy and answering questions. I interrogated but did not reprogram her vagal nerve stimulator. The stimulation intensity was 1.75 mA with a frequency of 30 Hz and a pulse with the 500 s. T he on time is 30 seconds with an off time of 1.1 minutes. The magnet current str ength was 2.0 mA with an on-time of 60 seconds and a pulse width of 500 s. Her stimulation intensity prior to her recent generator replacement was 2.0 mA. Systems diagnostics revealed no problems and the generator was replaced on and there is nearly 100% of service remaining. In summary, Summer Cullen is a 46-year-old right-handed woman with refractory e pilepsy of cryptogenic cause. Her inpatient video EEG monitoring in the past did not clarify her localization because there was an electrodecremental response s een. Overall, I suspect that she has a frontal lobe focus but her EEG shows sakina ateral abnormalities and her other testing has not helped guide us in determinin g a possible focus for her seizures. She has been evaluated at the [facility] in May, and they could not isolate a focus of her epilepsy. They think burke t she might have a generalized epilepsy but even if she has a focal onset epilep sy disorder, they cannot find the focus. Therefore, she is not a candidate for s urgical resection. They did observe her to have oxygen desaturations and apneic periods while she was in the hospital. She is scheduled to have a sleep study la osvaldo this month in [place]. If she has sleep apnea and this is treated with CP AP, this could improve her seizure frequency. I will also start her on Banzel. S he will take 200 mg by mouth twice a day and increase each week by 200 mg twice a day until she is taking 800 mg by mouth twice a day. Shortly thereafter, she w ill gradually taper off of the Topamax. The hope is that she will have seizure i mprovement or at least no worsening of her seizures with the Banzel versus the T opamax and with the discontinuation of the Topamax, this should help with her ki dney stones given that nephrolithiasis is a known side effect of Topamax. I woul d like to see her back in 6 months to see how she is doing with the switch from Banzel to Topamax and to see how her seizures respond to treatment of her likely sleep apnea. She knows that if her seizures worsen, she will contact my office. In particular if her seizures worsen with tapering of the Topamax, then we may be able to increase the Banzel further to see if this would then allow us to wea n off of the Topamax. documented in this encounter Plan of Treatment Care Team Description Date Type Specialty Hortencia Stewart, DANCE ARTIST [address] [place] [address] [phone] 03/31/2020 Office Visit Neurology documented as of this encounter Visit Diagnoses Diagnosis Partial epilepsy with impairment of con sciousness, intractable (HCC) Localization-related (focal) (partial) epilepsy and epileptic syndromes with complex partial seizures, with intractable epilepsy documented in this encounter
--- OUTSIDE RECORDS SUMMARY | 2020-02-11 03:11 | XMS REPORT | Encounter Summary ---
Author Author [facility] Organization 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 Neurol ogy [address] [place], [place] [id number] Social History Date Tobacco Use Types Packs/Day [...] Signs Reading Time Taken Comments Vital Sign 101/61 02/25/2016 10:26 AM CDT Blood Pressure 95 02/25/2016 10:26 AM CDT Pulse - - Temperature - - Respiratory Rate - - Oxygen Saturation - - Inhaled Oxygen Concentration 85.3 kg (188 lb) 02/25/2016 10:26 AM CDT Weight 157.5 cm (5' 2") 02/25/2016 10:26 AM CDT Height 34.39 02/25/2016 10:26 AM CDT Body Mass Index documented in this encounter Progress Notes * Samy Tsai MD - 02/25/2016 10:52 AM CDT I saw Summer Cullen in [...] either. She has been seen at the [facility] in the past and underwent invasi ve video EEG monitoring in 1995 or 1996 but they were not able to find a single focus for her epilepsy. She underwent repeat video EEG monitoring in February, at [facility]. Four seizures were captured with unclear [...] a PET scan re cently. Prior to her last visit with me on January 30, 2016, she had not been seen in my cl inic since January 29, 2014. In the past she would typically have a couple of seizu res per week. I had recommended that she go to the [facility] for a second opin ion on whether she might be a candidate for surgical resection for the treatment of her refractory epilepsy. She had not done this and presented to my clinic be cause of an increase in seizures where she could have 2-3 seizures per day. I in terrogated her vagal nerve stimulator and determined that the battery had reache d end of service and this was most likely the reason for the increase in seizure s. She underwent generator replacement earlier today by Dr. White. This went we ll without any complications. She states that her seizures have actually improve d slightly in the last week but otherwise have been very frequent over the last number of weeks. She is here to have the vagal nerve stimulator turned back on. Past medical history: 1. History of kidney [...] of seizures Social history: She lives in [facility] by herself. She smokes approximately one pack of cigarettes per day and has been smoking for the past 22 years. She does not drink alcohol or use illicit drugs. She is on disability. Examination: Filed Vitals: 02/25/16 1026 BP: 101/61 Pulse: 95 Height: 1.575 m (5' 2") Weight: 85.276 [...] had no drift and no asterixis. Her axialb-zo-rsoc, irfv-xx-jxyd, and rapid alternating movements were intact. Her gait was fairly normal and narrow b ased but because of her history of leg fractures, she is not able to do a tandem gait because her feet are deviated outward slightly. The majority of this 25 mi nute visit was spent counseling the patient with respect to the continued treatm ent of her epilepsy and answering questions. I interroand reprogrammed her vagal nerve stimulator. The generator was initiall y off. I turned it back on and she was able to tolerate a stimulation intensity of 0.75 mA with a frequency of 30 Hz and a pulse with the 500 s. The on time i s 30 seconds with an off time of 5 minutes. The magnet current strength is 1.0 m A with an on-time of 60 seconds and a pulse width of 500 s. Her settings in past were the following: The stimulation intensity was 2.0 milliamps. The freq uency was 30Hz with a pulse width of 500 microseconds. The on time is 30 seconds with an off time of 1.1 minutes. The magnet current strength was 2.25 milliamps with an on time of 60 seconds and a pulse width of 500 s. Systems diagnostics revealed no problems and the generator was replaced on 02/25/16. In summary, Summer Cullen is a 45-year-old [...] past that she be seen at the [facility] to see if they can do additional t esting to determine whether she might be a surgical candidate for the treatment of her refractory epilepsy. She has not done this. She recently returned to my office because of a marked increase in seizures. At that time we had determined that her vagal nerve stimulator had reached end of service. She had it replaced earlier today without any complications. I have turned back on. We have to titra te the programming and she was able to tolerate an increase to 0.75 mA. I will s ee her back in one week to increase it further. Hopefully as we continue to incr ease her vagal nerve stimulator settings, we will start to see an improvement in her seizure frequency back to her original baseline frequency. In the meantime, she knows that if things are not going well with respect to her seizures, she s hould contact my office. documented in this encounter Plan of Treatment Care Team Description Date Type Specialty Hortencia Stewart, TAMPING MACHINE OPERATOR ROAD FORMS [address] [address] [phone] 03/31/2020 Office Visit Neurology documented as of this encounter Visit Diagnoses Diagnosis Partial epilepsy with impairment of con sciousness, intractable (HCC) Localization-related (focal) (partial) epilepsy and epileptic syndromes with complex partial seizures, with intractable epilepsy documented in this encounter
--- OUTSIDE RECORDS SUMMARY | 2020-02-11 03:11 | XMS REPORT | Encounter Summary ---
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, intractable (HCC) (Primary Dx) 12/22/2016 Office Visit [facility] Neurol ogy [address] [place] [address] Social History Date Tobacco Use Types Packs/Day [...] Signs Reading Time Taken Comments Vital Sign 126/77 12/22/2016 11:14 AM PUMP RUNNER Blood Pressure 121 12/22/2016 11:14 AM PUMP RUNNER Pulse - - Temperature - - Respiratory Rate - - Oxygen Saturation - - Inhaled Oxygen Concentration 85.7 kg (189 lb) 12/22/2016 11:14 AM PUMP RUNNER Weight - - Height 33.48 06/30/2016 2:50 PM CDT Body Mass Index documented in this encounter Progress Notes * Samy Tsai MD - 12/22/2016 11:30 AM PUMP RUNNER I saw Summer Cullen in [facility] for follow-up of her 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 She is a 46-year- old right-handed woman who has had epilepsy since 21 years of age. She typicall y has generalized tonic-clonic seizures without an aura but she also has staring episodes without an aura. She has been seen at the [facility] in the past and underwent invasive video EEG monitoring in 1995 or 1996 but they were not able to find a single focus for her epilepsy. She underwent repeat video EEG monitoring in February, at [facility]. Four seizures were captured with unclear localization. [...] has not had a PET scan recently. She has also been evaluated at the [facility] in the summer of 2015. I had rece ived a call from Dr. Oumar Babcock who agreed with our EEG findings in that a clear focus of seizure onset could not be found. He overall thought that she had a primary generalized form of epilepsy. Even if she had a more focal form of ep ilepsy, a focus cannot be found so she is not a candidate for a resective surgic al option. While she was undergoing video EEG monitoring, they had noted desatur ations and they think that she most likely has sleep apnea. At her last visit with me on June 30, 2016, I added Banzel to her regimen and w e gradually tapered her off of the Topamax because of issues with kidney stones in the past. She states that her overall seizure frequency is unchanged. She is having approximately 5 of her typical seizures per week. She thinks that her sei zures could be in part been triggered by the pain from dental issues that she petit s had. She recently had her teeth extracted and had dentures fitted. Things are getting better but she still has some discomfort. She is hopeful that this will resolve itself within the next few weeks or so. She has not seen a sleep special ist yet because of issues with her insurance but she states that she is still wo rking on this. She is tolerating her current dosages of Lamictal and Banzel with out any significant side effects and there are no other new neurological symptom s. Past medical history: 1. History of kidney stones on multiple occasions 2. Status post tubal ligation 3. Status post vagal nerve stimulator implantation 4. Depression 5. Migraine headaches Allergies: Doxycycline and Tylenol Medications: 1. Lamictal 200 mg p.o. t.i.d. 2. Banzel 600/400/600 mg by mouth 3 times a day 3. Depo shot 4. Effexor XR 150 mg p.o. once daily 5. Vitamin D and calcium 6. Folic acid 400 g by mouth once daily 7. Zocor 20 mg by mouth once daily 8. Coreg 6.25 mg by mouth once daily 9. Symbicort 2 puffs daily 10. Gas relief 12.5 mg 2-4 tablets per day as needed She has tried Dilantin, Tegretol, Phenobarbital, Depakote, Potiga, and Keppra in the past. She has tried Topamax which contributed to kidney stones. She thinks that she may have tried Vimpat but she is not entirely sure. She thinks that thi s may have increased her seizure frequency so it was discontinued. She has not t ried Zonisamide. Family history: There is no family history of seizures Social history: She lives in [facility] by herself. She smokes approximately one pack of cigarettes per day and has been smoking for the past 22 years. She does not drink alcohol or use illicit drugs. She is on disability. Examination: Vitals: 12/22/16 1114 BP: 126/77 Pulse: 121 Weight: 85.7 kg (189 lb) Body mass index is 33.48 kg/(m^2). On [...] drift and no asterixis. Her finger -to-nose, ckre-bw-kann, and rapid alternating movements were intact. Her [...] has been evaluated at the [facility] in May, and they could not isolate a focus of her epilepsy. They think burke t she might have a generalized epilepsy but even if she has a focal onset epilep sy disorder, they cannot find the focus. Therefore, she is not a candidate for s urgical resection. We have added Banzel to her regimen and so far this has not improved her seizure frequency but we were able to taper her off of Topamax which has contributed to kidney stones in the past. She thinks that the discomfort from her recent dental procedures could be contributing to her seizures which is certainly possible. I think her sleep apnea issues are also contributing. I recommended that she see a sleep specialist. She is having some insurance issues but she states she will look into this. Hopefully with treatment of her potential sleep apnea and impro vement in her pain, we will see an improvement in her seizures. If there is not, she will contact my office and we will attempt to increase her Banzel further. I provided her with a prescription refill for the Lamictal and the folic acid wh ich she will continue without a change in dosage. I would like to see her back i n 6 months to see how she is doing but she knows that if things are not going we ll she will contact my office. RUNNER documented in this encounter Plan of Treatment Care Team Description Date Type Specialty Hortencia Stewart, STRATEGIC PLANNING SPECIALIST [address] [address] [phone] 03/31/2020 Office Visit Neurology documented as of this encounter Visit Diagnoses Diagnosis Partial epilepsy with impairment of con sciousness, intractable (HCC) Localization-related (focal) (partial) epilepsy and epileptic syndromes with complex partial seizures, with intractable epilepsy documented in this encounter
--- OUTSIDE RECORDS SUMMARY | 2020-02-11 03:11 | XMS REPORT | Encounter Summary ---
Author Author [facility] Organization [facility] Address Unknown Phone Unavailable Care Team Providers Care Zoning Assistant Name Role Phone EldonFreedom correa PCP Encounter Details Care Team Description Date Type Department Samy Tsai MD [address] [facility] [address] [place], [place] [id number] 03/24/2017 Telephone [facility] [address] [place], [place] [phone] Social History Date Tobacco Use Types Packs/Day [...] as of this encounter Miscellaneous Notes * Addendum Note - Nakia Dobbins MA - 03/25/2017 2:08 PM CDT Addended by: NAKIA DOBBINS on: 03/25/2017 02:08 PM Modules accepted: Orders * Telephone Encounter - Nakia Dobbins MA - 03/25/2017 2:06 PM CDT Pt notified and voiced understanding. Updated rx sent to [facility] per her [facility]. * Telephone Encounter - Nakia Dobbins MA - 03/25/2017 9:49 AM CDT Tried calling pt- no answer. LVM for pt to return my call. * Telephone Encounter - Samy Tsai MD - 03/24/2017 2:42 PM CDT Please have her increase the Banzel to 1000 mg by mouth twice a day. However, eugene schafer has to see a sleep specialist given that her sleep apnea may be contributing t o her seizures since sleep deprivation is a typical trigger for seizures. * Telephone Encounter - Nakia Dobbins MA - 03/24/2017 1:52 PM CDT Pt reports that she has had an increase in seizures over the past two weeks. She states that she is having approximately 3-4 seizures per day consisting of conv ulsive seizures or staring episodes. She is currently taking lamotrigine 200 mg tid and Banzel 800 mg bid. After reading your last note, I asked the pt about he r sleep apnea. She has not followed up with a sleep specialist due to the cost o f the copay. Please let me know your recommendations. Thanks. documented in this encounter Plan of Treatment Care Team Description Date Type Specialty Hortencia Stewart, INDIAN BLANKET WEAVER [address] [address] [phone] 03/31/2020 Office Visit Neurology documented as of this encounter Visit Diagnoses Not on filedocumented in this encounter
--- OUTSIDE RECORDS SUMMARY | 2020-02-11 03:11 | XMS REPORT | Encounter Summary ---
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, intractable (HCC) 08/17/2017 Office Visit [facility] Neurol ogy [address] [place] [address] Social History Date Tobacco Use Types Packs/Day [...] Signs Reading Time Taken Comments Vital Sign 133/79 08/17/2017 1:36 PM CDT Blood Pressure 113 08/17/2017 1:36 PM CDT Pulse - - Temperature - - Respiratory Rate - - Oxygen Saturation - - Inhaled Oxygen Concentration 92.2 kg (203 lb 3.2 oz) 08/17/2017 1:36 PM CDT Weight 160 cm (5' 3") 08/17/2017 1:36 PM CDT Height 36 08/17/2017 1:36 PM CDT Body Mass Index documented in this encounter Progress Notes * Samy Tsai MD - 08/17/2017 2:00 PM CDT I saw Summer Cullen in our [facility] for follow-up of her 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 She is a 47-year- old right-handed woman who has had epilepsy since 21 years of age. She typicall y has generalized tonic-clonic seizures without an aura but she also has staring episodes without an aura. She has been seen at the [facility] in the past and underwent invasive video EEG monitoring in 1995 or 1996 but they were not able to find a single focus for her epilepsy. She underwent repeat video EEG monitoring in February, at [facility]. Four seizures were captured with [...] this would represent a complication of that procedure. There was no evidence for mesial temporal sclerosis. Neuropsycholog ical testing performed on June 07 showed cognitive changes but no clear laterali zed pattern of dysfunction. She has not had a PET scan recently. She has also been evaluated at the [facility] in the summer of 2015. I [...] that she most likely has sleep apnea. Banzel was added to her regimen in the latter part of 2015 and she was gradually tapered off of Topamax because of issues with kidney stones in the past. At her last visit with me on December 22, 2016, we have been gradually increasing her B anzel. She is currently on a dose of 1000 mg by mouth twice a day. She thinks th at her seizure frequency improved somewhat. In the past, she would typically hav e approximately 5 seizures per week. She now thinks that she is having 3 or 4 an d they are perhaps slightly milder. However, in the last month, she has noticed an increase in migraine headaches and is not sleeping well and in this setting, she has noticed a slight increase in her seizures. She is tolerating her current antiepileptic drug regimen without any significant side effects and reports no new neurological symptoms. She still has not seen a sleep specialist yet. Past medical history: 1. History of kidney stones on multiple occasions 2. Status post tubal ligation 3. Status post vagal nerve stimulator implantation 4. Depression 5. Migraine headaches Allergies: Doxycycline and Tylenol Medications: 1. Lamictal 200 mg p.o. t.i.d. 2. Banzel 1000 mg by mouth twice a day 3. Depo shot 4. Effexor XR 150 mg p.o. once daily 5. Vitamin D and calcium 6. Folic acid 1 mg by mouth once daily 7. Zocor 20 [...] of seizures Social history: She lives in [facility] by herself. She smokes approximately one pack of cigarettes per day and has been smoking for the past 22 years. She does not drink alcohol or use illicit drugs. She is on disability. Examination: Vitals: 08/17/17 1336 BP: 133/79 Pulse: 113 Weight: 92.2 kg (203 lb 3.2 oz) Height: 1.6 m (5' 3") Body mass index is 36 kg/m. On examination, she was well-appearing and in [...] drift and no asterixis. Her finger -to-nose, xhsi-ae-uqye, and rapid alternating movements were intact. Her [...] her recent generator replacement was 2.0 mA. Sys tems diagnostics revealed no problems and the generator was replaced on 02/25/16 and there is nearly 80% of service remaining. In summary, Summer Cullen is a 47-year-old right-handed woman with refractory e pilepsy of [...] seizures. She has been evaluated at the [facility] in May, and they could not isolate a focus of her epilepsy. They think burke t she might have a generalized epilepsy but even if she has a focal onset epilep sy disorder, they cannot find the focus. Therefore, she is not a candidate for s urgical resection. We have added Banzel to her regimen and with higher doses, this has made some im provement in her seizure frequency but in the last month, she has had an increas e in migraine headaches and in this setting, her seizures have worsened slightly . I strongly suspect that her increased migraines and seizures are because of po or sleep related to her untreated sleep apnea. She states that her insurance mellisa l not cover a sleep study. I recommended that she see a sleep specialist as a fi rst approach. I suspect that the coverage will be better if the sleep study is o rdered by a sleep specialist or at the very least a sleep specialist can help fa cilitate approval for the sleep study. If her sleep apnea, which I strongly susp ect that she has, can be treated, then I think that her migraines will improve a nd this in turn could also help improve her seizures given that sleep deprivatio n is a potent trigger for seizures. She is in agreement with this plan. She will try to find a sleep specialist closer to home but if this is not possible she c an contact my office and I would be happy to provide her with a referral to a eep specialist in the [facility]. If her sleep apnea is treated and this does not make an improvement in either her migraines or her seizures, then I wou ld consider a repeat head imaging study at that time. We will also need to consi carson increasing her Banzel further. I provided her with prescription refills for her Banzel, Lamictal, and folic acid. She will continue these without a change i n dose for now. I would like to see her back in 6 months to see how she is doing but she knows that if things are not going well she will contact my office. 

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
--- OUTSIDE RECORDS SUMMARY | 2020-02-11 03:12 | XMS REPORT | Encounter Summary ---
Author Author [facility] Organization [facility] Address Unknown Phone Unavailable Care Team Providers Care Reinsurance Claim Analyst Name Role Phone Freedom Villarreal PCP Encounter Details Care Team Description Date Type Department Rudy Butcher MD [address] [facility] [address] [place] [address] [phone] 11/23/2013 PracPart Note [facility] ogy [address] [place] [address] Social History Date Tobacco Use Types Packs/Day Years Used Never Assessed Sex Assigned at Date Recorded Not on file Industry Job Start Date Occupation Not on file Not on file Not on file Travel End Travel History Travel Start No recent travel history available. documented as of this encounter Progress Notes * Rudy Butcher MD - 11/23/2013 10:17 AM HOME CARE MUSIC THERAPIST . :10:17AM .T:patient call From: Margie Dobbins ([place]) Originated by: Margie Dobbins ([place]) Sent: at 10:17AM To: Migdalia Minaya (CS) Betsy Mina (SR) Yareli Irvin (LIVIA) Type: CHART Priority: 3 Subject: patient call This patient called stating that someone was working on her referral to the [facility]. Please let me know if you have any information regarding this issue. [email or web address] documented in this encounter Plan of Treatment Care Team Description Date Type Specialty Hortencia Stewart, MEDICAL UNDERWRITER [address] [address] [phone] 03/31/2020 Office Visit Neurology documented as of this encounter Visit Diagnoses Not on filedocumented in this encounter
--- OUTSIDE RECORDS SUMMARY | 2020-02-11 03:12 | XMS REPORT | Encounter Summary ---
Author Author [facility] Organization [facility] Address Unknown Phone Unavailable Care Team Providers Care Cd Mixer Name Role Phone Freedom Villarreal PCP Encounter Details Care Team Description Date Type Department Sj Vivar MD [address] [facility] [place] [address] [phone] 02/06/2016 Documentation [facility] [address] [place] [address] Social History Date Tobacco Use Types Packs/Day Years Used Current Every Day Smoker Cigarettes 0.75 Smokeless Tobacco: Never Used Drinks/Week oz/Week Comments Alcohol Use 0 Standard drinks or equivalent 0.0 No Sex Assigned at Date Recorded Not on file Industry Job Start Date Occupation Not on file Not on file Not on file Travel End Travel History Travel Start No recent travel history available. documented as of this encounter Plan of Treatment Care Team Description Date Type Specialty Hortencia Stewart, THIMBLE PRESS OPERATOR [address] [facility] [address] [place] [address] [phone] 03/31/2020 Office Visit Neurology documented as of this encounter Visit Diagnoses Not on filedocumented in this encounter
--- OUTSIDE RECORDS SUMMARY | 2020-02-11 03:12 | XMS REPORT | Encounter Summary ---
Author Author [facility] Organization [facility] Address Unknown Phone Unavailable Care Team Providers Care Fuel Yard Operator Name Role Phone PCP Unavailable Encounter Details Care Team Description Date Type Department Samy Tsai MD [address] [facility] [address] [place] [address] [phone] 01/29/2014 Hist-Visit [facility] Social History Date Tobacco Use Types Packs/Day Years Used Never Assessed Sex Assigned at Date Recorded Not on file Industry Job Start Date Occupation Not on file Not on file Not on file Travel End Travel History Travel Start No recent travel history available. documented as of this encounter Progress Notes * Samy Tsai MD - 01/29/2014 12:11 PM PRODUCTION LINE WELDER . : 12:11pm .T: Return Patient [facility], [facility]. [address] [place] [address] [address] [facility] [address] [place] [address] [place] [address] [place] [address] [place] [address] Ness Serra M.D. Anthony Serra M.D. Alem Murphy M.D. Velia Ortiz M.D. Rex Curry M.D. Surya Abdi M.D. Wanda Castillo M.D. eRx Vásquez. Chrissy, M.D. Daysi James, MSN,RN,ANP, [facility] Samy Tsai M.D., Ph.D. Rudy Butcher M.D. Osmani Putnam M.D. . 01/29/14 Freedom Villarreal DO [address] [facility] [place] [place] [address] RE: Summer Cullen : [address]arreal: I had the pleasure today of seeing Summer Cullen in our [facility] for follow-up of her history of refractory epilepsy of cryptogenic cause. As you know, she is a 43-year-old right-handed woman who has had epilepsy since 21 years of age. She typically has generalized tonic-clonic seizures without an aura but she also has complex partial seizures where she will stare. These s ound consistent with complex partial seizures but she does not recall any aura w ith these either. She has been seen at the [facility] in the past and underwent invasive video EEG monitoring in 1995 or 1996 but they were not able to find a single focus for her epilepsy. She underwent repeat video EEG monitoring in February, at [facility]. Four seizures were captured with unclear [...] not had a PET scan re cently. Since her last visit with me on August 15, 2013, she continues to have a coup le of seizures per week on average. Unfortunately, a seizure in November resulted in a fracture of her right leg. She was scheduled to be seen at the [facility] around that time but because of the fracture of the leg, this has been postpone d. I referred her to the [facility] for a second opinion on whether it is possi ble that she could undergo a surgical resection for the treatment of her epileps y. Past medical history: 1. History of kidney stones on multiple occasions 2. Status post tubal ligation 3. Status post vagal nerve stimulator implantation 4. Depression 5. Migraine headaches Allergies: Doxycycline and Tylenol Medications: 1. Lamictal 200 mg p.o. t.i.d. 2. Topamax 200 mg p.o. t.i.d. 3. Depo shot 4. Effexor XR 75 mg p.o. once daily 5. Vitamin C with vitamin D 6. Propranolol 60mg p.o. b.i.d. for migraine prophylaxis 7. oxycodone as needed for leg pain 8. Vitamin D and calcium She has tried Dilantin, Tegretol, Phenobarbital, Depakote, Potiga, and Keppra in the past. She thinks that she may have tried Vimpat but she is not entirely delta e. She thinks that this may have increased her seizure frequency so it was disco ntinued. She has not tried Zonisamide. Family history: There is no family history of seizures Social history: She lives in [place] [facility] [place] by herself. Shesmokes approximately one p ack of cigarettes per day and has been smoking for the past 22 years. She does n ot drink alcohol or use illicit drugs. She is on disability. The patient's vital signs taken today in my office and are in the office chart. On examination, she was well-appearing and in [...] had no drift and no asterixis. Her ouckel-sx-pjdc, gxvj-mb-rhaq, and rapid alternating movements were intact. She ambulated with the assistance of a wheelchair because of her recent leg fracture and her right leg was in a cast. T he majority of this 25 minute visit was spent counseling the patient with respec t to the continued treatment options for her epilepsy. I did not interrogate or reprogram her vagal nerve stimulator today. In the past , her settings were the following: The generator and lead were replaced on 2012. The stimulation intensity was 2.0 milliamps. The frequency was 30Hz w ith a pulse width of 500 microseconds. The on time is 30 seconds with an off anita e of 1.1 minutes. The magnet current strength was 2.25 milliamps with an on anita e of 60 seconds and a pulse width of 500 s. Systems diagnostics revealed no is sues and the battery is working well with 100% service remaining. In summary, Summer Cullen is a 43-year-old right-handed woman with refractory l ocalization related [...] determining a possible focus for her seizures. Therefore at this poi nt, I am not optimistic that she would be a suitable candidate for surgical rese ction for the treatment of her epilepsy. However, we are trying to obtain a sec ond opinion from the [facility] to determine if she might be a surgical cruzito te because she continues to have frequent seizures that can result in fractures of her legs among other injuries. Therefore, the consequences of her seizures ar e severe and I think this warrants further investigation into all of her treatme nt options. She is working on trying to set up this appointment once her leg he als. I will see her back shortly thereafter to see how she is doing and to revie w her treatment options further pending the opinion from the [facility]. In the meantime, if you have any questions or concerns, please do not hesitate to cont act me. I Sincerely, Samy Tsai M.D., Ph.D. Director, [facility] [place], [place] # SIGNED BY Samy Tsai MD Phd ([facility]) 01/29/2014 12:15PM UCTION LINE WELDER documented in this encounter Plan of Treatment Care Team Description Date Type Specialty Ledo, Hortencia J, CLOTH MERCERIZER OPERATOR [address] [address] [phone] 03/31/2020 Office Visit Neurology documented as of this encounter Visit Diagnoses Not on filedocumented in this encounter
--- OUTSIDE RECORDS SUMMARY | 2020-02-11 03:12 | XMS REPORT | Encounter Summary ---
Author Author [facility] Organization [facility] Address Unknown Phone Unavailable Care Team Providers Care Car Spotter Name Role Phone EldonFreedom correa PCP Encounter Details Care Team Description Date Type Department Slnc, Historical 08/15/2013 [facility] Social History Date Tobacco Use Types Packs/Day Years Used Never Assessed Sex Assigned at Date Recorded Not on file Industry Job Start Date Occupation Not on file Not on file Not on file Travel End Travel History Travel Start No recent travel history available. documented as of this encounter Last Filed Vital Signs Reading Time Taken Comments Vital Sign 108/66 08/15/2013 4:05 PM CDT Blood Pressure 94 08/15/2013 4:05 PM CDT Pulse 37 C (98.6 F) 08/15/2013 4:05 PM CDT Temperature - - Respiratory Rate - - Oxygen Saturation - - Inhaled Oxygen Concentration - - Weight 157.5 cm (5' 2") 08/15/2013 4:05 PM CDT Height - - Body Mass Index documented in this encounter Plan of Treatment Care Team Description Date Type Specialty Hortencia Stewart, INTERNATIONAL ACCOUNT MANAGER [address] [address] [phone] 03/31/2020 Office Visit Neurology documented as of this encounter Visit Diagnoses Not on filedocumented in this encounter
--- OUTSIDE RECORDS SUMMARY | 2020-02-11 03:12 | XMS REPORT | Encounter Summary ---
Author Author [facility] Organization [facility] Address Unknown Phone Unavailable Care Team Providers Care News Reel Cameraman Name Role Phone EldonFreedom correa PCP Encounter Details Care Team Description Date Type Department [facility], Historical 08/06/2014 PracPart Note [facility] Social History Date Tobacco Use Types Packs/Day Years Used Never Assessed Sex Assigned at Date Recorded Not on file Industry Job Start Date Occupation Not on file Not on file Not on file Travel End Travel History Travel Start No recent travel history available. documented as of this encounter Progress Notes * Slnc, Historical - 08/06/2014 1:05 PM CDT . : 01:05pm .T: Chart Note Transfered VM to JL. VIDAL documented in this encounter Plan of Treatment Care Team Description Date Type Specialty Hortencia Stewart, WAX POT TENDER [address] [address] [phone] 03/31/2020 Office Visit Neurology documented as of this encounter Visit Diagnoses Not on filedocumented in this encounter
--- OUTSIDE RECORDS SUMMARY | 2020-02-11 03:12 | XMS REPORT | Encounter Summary ---
Author Author [facility] Organization [facility] Address Unknown Phone Unavailable Care Team Providers Care Executive Vp Name Role Phone PCP Unavailable Encounter Details Care Team Description Date Type Department Samy Tsai MD [address] [facility] [address] [place] [address] [phone] 08/06/2014 Hist-Visit [facility] Social History Date Tobacco [...] Date Type Specialty Hortencia Stewart, CARRIE [address] [facility] [address] [place] [address] [phone] 03/31/2020 Office Visit Neurology documented as of this encounter Visit Diagnoses Not on filedocumented in this encounter
--- OUTSIDE RECORDS SUMMARY | 2020-02-11 03:12 | XMS REPORT | Encounter Summary ---
Author Author [facility] Organization [facility] Address Unknown Phone Unavailable Care Team Providers Care Fire Prevention Captain Name Role Phone EldonFreedom correa PCP Reason for Visit * Auth/Cert (Routine) Referred By Contact Referred To Contact Status Reason Specialty Diagnoses / Procedures Sj Vivar MD [address] [address] Diagnoses Partial epilepsy with impairment of consciousness, intractable (HCC) P rocedures Case request operating room: REPLACEMENT STIMULATOR VAGAL NERVE WITH INOPERATIVE PROGRAMING Encounter Details Care Team Description Date Type Department Jacob Roberson MD NO FORWARDING ADDRESS Jabari Taylor MD NO FORWARDING ADDRESS 02/25/2016 [facility] [address] [place] [address] Anesthesia Record Responsible Anesthesiologist Anesthesia Start Time Anesthesi a Stop Time Procedure Name Jacob Roberson MD 02/25/16 0733 02/25/16 0842 VAGAL NERVE STIMULATOR REPLACEMENT WITH INOPERATIVE PROGRAMING (N/A ) Date Time Event Comment 706 Anesthesia 2016 Initial Contact 0710 0717 AN Equip Check 0733 In room 0733 An Start 0734 An Start Data 0739 Pt eval immediately prior to anesthesia 0739 Preoxygenated Prior to Induction 0739 An Induction 0739 Anesthesiologis t Present 0741 An Intubation 0744 Anesthesia Ready 0756 Procedure start - Primary Case 0833 Procedure stop - Primary case 0836 Spontaneous respirations 0836 Adequate Tidal Volume 0836 FiO2 to 100% Prior to Suctioning 0836 Suction 0836 An Extubation 0836 Anesthesiologis t Present 0838 Oxygen per nasal cannula 0838 an stop data 0838 Transported with O2 0838 Out of Room 0842 An Stop Meds Name Total fentaNYL (SUBLIMAZE) injection 50 mcg/mL 50 mcg lidocaine 2% (PF) 80 mg propofol 10mg/mL 160 mg rocuronium 10mg/mL 30 mg ondansetron 2mg/mL 4 mg phenylepherine 0.1mg/mL 200 mcg neostigmine 0.5mg/mL 3 mg glycopyrrolate 0.2mg/mL 0.4 mg ceFAZolin (ANCEF) injection 2 g 2 g lactated ringers infusion 800 mL * Name O2 N2O Air EtSEVO EtN2O * No blood administrations on file. Removal Type Details Placement 02/25/16952 by Marion Villatoro RN Peripheral Date: 02/25/16; Time: 06; Size 02/24 0645 by Brandy Valdez IV (gauge): 20 G; Orientation: Left; Sam leger RN Location: Hand; Site Prep: Chlorhexidine; Local Anesthetic: Intradermal; Insertion Attempts: 1; Removal Date: 02/25/16; Removal Time: 0953 02/25/16 0836 by Jabari Taylor MD Non-Surgic Date: 02/25/16; Time: 07; Placed By: 02/25/16740 by Jabari colón Airway Resident; Site: Oral; Device: ETT - Shiraz escobar MD Cuffed; Size: 7; Units: Millimeters; Method: Laryngoscope; Blade Type: MAC; Blade Size: 3; Attempts: 1; Grade View: II; Misc: External Laryngeal Manipulation; Airway Observations: oropharynx clear, cords visualized; Placement Verified By: Capnometry, Auscultation; Secured At (cm): 22; Measured From: Teeth; Removal Date: 02/25/16; Removal Time: 0836 06/17/19 0836 by User [employer] (Retired 02/25/16; 0821; Chest; Left; 06/17/19 02/25/16 0821 by Elen Valdez 12/20/18; (This LDA has been removed & completed ELVIRA Ruiz search via automated utility); 083 6 (This LDA "wound" if has been removed & complete d via placing automated utility) new) Wound - Incision Assessment documented in this encounter Social History Date [...] Miscellaneous Notes * Anesthesia Postprocedure Evaluation - Ashok Larson MD - 02/25/2016 9:40 AM CDT Patient: Summer Cullen Procedure(s): VAGAL NERVE STIMULATOR REPLACEMENT WITH INOPERATIVE PROGRAMING Final Anesthesia Type Performed: general *Block Type (if peripheral regional or epidural used): No value filed. Patient location: PACU Last Vitals: ANE Post Eval Vitals Most Recent Value BP 110/74 mmHg Pulse 92 Temp 36.4 C (97.5 F) Resp 16 SpO2 97 % Level of consciousness: awake, alert and oriented Post-anesthesia pain: adequate analgesia Airway patency: patent Respiratory: unassisted Cardiovascular: stable and blood pressure at baseline Hydration: adequate PostOp Nausea/Vomiting: controlled Difficult Airway: no Anesthetic complications: no Discharge from anesthesia care: Appropriate for discharge from anesthesia care, no apparent anesthesia related complications. Denies Nausea and pain is well co ntrolled with ibuprofen. Robin score is 10. She is ready for discharge home. * Anesthesia Preprocedure Evaluation - Jacob Roberson MD - 02/25/2016 7:07 AM CDT Anesthesia Evaluation ECG reviewed Airway Mallampati: II TM distance: >3 FB Neck ROM: full Dental - normal exam Pulmonary - negative ROS and normal exam breath sounds clear to auscultation Lung sounds: normal (+) Cardiovascular - negative ROS Heart sounds: normal (+) (-) murmur ECG reviewed Rhythm: regular Rate: normal Neuro/Psych (+) seizures poorly controlled, headaches, GI/Hepatic/Renal - negative ROS (+) renal disease, Endo/Other - negative ROS Abdominal (+) obese, Abdomen: soft. Obstetrics HEENT Negative HEENT ROS Musculoskeletal Negative musculoskeletal ROS Anesthesia Plan ASA 3 Type: general () Plan to include: ETT ETT: oral Patient was NOT taking beta blockers as a home medication. Beta block will NOT be maintained perioperatively. Anesthetic plan and risks discussed with patient. Plan discussed with resident. Recovery plan: PACU PONV risk level: high documented in this encounter Plan of Treatment Care Team Description Date Type Specialty Hortencia Stewart, KNAPSACK SPRAYER [address] [address] [phone] 03/31/2020 Office Visit Neurology documented as of this encounter Visit Diagnoses Not on filedocumented in this encounter Administered Medications Action Date Dose Rate Site Medication Order MAR Action 02/25/2016 7:50 AM CDT 2 g ceFAZolin (ANCEF) injection 2 g Given 2 g, Intravenous, 60 min pre-op, Indications: PERIOPERATIVE, Starting We d 02/25/16 at 0613, For 1 dose, Pre-op, al l prophylactic antibiotics are to be started within 1 hour prior to incision If giving IV push, reconstitute each vial with 10 ml sterile water and give over 2-3 minutes, 02/25/2016 7:36 AM CDT 50 mcg fentaNYL (SUBLIMAZE) injection Given As needed, Starting Tue02/25/16 at 0736 , Anesthesia Intra-op 02/25/2016 8:05 AM CDT 0.4 mg glycopyrrolate (ROBINUL) injection Given As needed, secretions, Starting Tue02/25/16 at 0805, Anesthesia Intra-op 02/25/2016 7:33 AM CDT lactated ringers infusion New Bag 50 mL/hr, Intravenous, Continuous, Starting Tue02/25/16 at 0630, Pre-op 02/25/2016 7:39 AM CDT 80 mg lidocaine (pf) (XYLOCAINE-MPF) 20 mg/mL Given (2 %) injection As needed, Starting Tue02/25/16 at 0739 , Anesthesia Intra-op 02/25/2016 8:05 AM CDT 3 mg neostigmine (PROSTIGMIN) injection Given As needed, Starting Tue02/25/16 at 0805 , Anesthesia Intra-op 02/25/2016 8:05 AM CDT 4 mg ondansetron (ZOFRAN) 4 mg/2 mL injection Given As needed, nausea, vomiting, Starting Tue02/25/16 at 0805, Anesthesia Intra-o p 02/25/2016 8:19 AM CDT 100 mcg phenylephrine HCl in 0.9% NaCl Given (NEOSYNEPHRINE) 1 mg/10 mL (100 mcg/mL) injection As needed, Starting Tue02/25/16 at 0807 , Anesthesia Intra-op 100 mcg Given 02/25/2016 8:07 AM CDT 02/25/2016 7:39 AM CDT 160 mg propofol (DIPRIVAN) injection Given As needed, Starting Tue02/25/16 at 0739 , Anesthesia Intra-op 02/25/2016 7:39 AM CDT 30 mg rocuronium (ZEMURON) injection Given As needed, Starting Tue02/25/16 at 0739 , Anesthesia Intra-op documented in this encounter
--- OUTSIDE RECORDS SUMMARY | 2020-02-11 03:12 | XMS REPORT | Encounter Summary ---
Author Author [facility] Organization [facility] Address Unknown Phone Unavailable Care Team Providers Care Senior Quality Analyst Name Role Phone Freedom Villarreal PCP Encounter Details Care Team Description Date Type Department Samy Tsai MD [address] [facility] [address] [place], [place] [id number] 08/07/2014 PracPart Note [facility] ogy [address] [place] [address] Social History Date Tobacco Use Types Packs/Day Years Used Never Assessed Sex Assigned at Date Recorded Not on file Industry Job Start Date Occupation Not on file Not on file Not on file Travel End Travel History Travel Start No recent travel history available. documented as of this encounter Progress Notes * Samy Tsai MD - 08/07/2014 4:18 PM CDT . :04:18PM .T:tried to call patient for R/S appointment From: Nisha Mosley (GUERDA) Originated by: Nisha Mosley (GUERDA) Sent: 08/07/2014 at 0 4:18PM To: Nisha Mosley (GUERDA) Type: CHART Priority: 3 Subject: tried to call patient for R/S appointment she missed her 08/06/14 appointment plz called number on file it was garbled and unable to leave a message jl documented in this encounter Plan of Treatment Care Team Description Date Type Specialty Hortencia Stewart, STEP DOWN NURSE [address] [facility] [address] [place] [address] [phone] 03/31/2020 Office Visit Neurology documented as of this encounter Visit Diagnoses Not on filedocumented in this encounter
--- OUTSIDE RECORDS SUMMARY | 2020-02-11 03:12 | XMS REPORT | Encounter Summary ---
Author Author [facility] Organization [facility] Address Unknown Phone Unavailable Care Team Providers Care Bill Distributor Name Role Phone PCP Unavailable Encounter Details Care Team Description Date Type Department Samy Tsai MD [address] [facility] [address] [place] [address] [phone] 08/15/2013 Hist-Visit [facility] Social History Date Tobacco Use Types Packs/Day Years Used Never Assessed Sex Assigned at Date Recorded Not on file Industry Job Start Date Occupation Not on file Not on file Not on file Travel End Travel History Travel Start No recent travel history available. documented as of this encounter Progress Notes * Samy Tsai MD - 08/15/2013 4:19 PM CDT . : 04:19pm .T: Return Patient [facility], [facility] [address] [place] [address] [address] [facility] [address] [place] [address] [place] [address] [place] [address] [place] [address] Ness Serra M.D. Anthony Serra M.D. Alem Murphy M.D. Velia Ortiz M.D. Rex Curry M.D. Wanda Castillo M.D. Dayna Pina M.D. Earl Staley D.O. Louis Lowe M.D. Daysi James, MSN,RN,ANP, [facility] Program[facility] Samy Tsai M.D., Ph.D. Rudy Butcher M.D. Osmani Putnam M.D. . 08/15/13 Freedom Villarreal DO [address] [place] [address] [place], [place] [address] RE: Summer Cullen : [address] [...] either. She has been seen at the [facility] in the past and underwent invasive video EEG monitoring in 1995 or 1996 but they were not able to find a single focus for her epilepsy. She underwent repeat video EEG monitoring in February, at [facility]. Four seizures were captured with unclear localization. [...] her last visit with me on August 07, 2013, I had increased her vagal ne rve stimulator further. She states that in the past week or so, her seizures see m to have improved slightly. She is otherwise doing well and reports no new neur ological symptoms. Past medical history: 1. History of [...] 60mg p.o. b.i.d. for migraine prophylaxis 7. Potiga 150/300 mg p.o. b.i.d. 8. Vitamin D and calcium She has [...] of seizures Social history: She lives in [facility] by herself. She smokes approximately one pack of cigarettes per day and has been smoking for the past 22 years. She does not drink alcohol or use illicit drugs. She is on disability. The patient's vital signs taken today in my office are as follows: Bp: 108/66, Left Arm, Pulse: 94 Temperature: 98.6 F, Height: 5'2" On examination, she was well-appearing and in [...] had no drift and no asterixis. Her qxsrlu-fp-aekb, ondw-jx-yoku, and rapid alternating movements were intact. She ambulated with the assistance of a wheelchair because of her recent leg fracture and her right leg was in a cast. T he majority of this 25 minute visit was spent counseling the patient with respec t to the continued treatment options for her epilepsy. I interrogated and reprogrammed her vagal stimulator today. The generator and le ad were replaced on June 29, 2013. The stimulation intensity was 1.75 milliamps which I increased to 2.0 milliamps. The frequency was 30Hz with a pulse width of 500 microseconds. The on time is 30 seconds with an off time of 1.1 minutes. The magnet current strength was 2.0 mAmps which I increased to 2.25 milliamps wi th an on time of 60 seconds and a pulse width of 500 s. Systems diagnostics re vealed no issues and the battery is working well with 100% service remaining. Rhoda schafer is now program back to her original settings prior to her generator replacemen t in the early part of June. In summary, Summer Cullen is a 43-year-old [...] for the treatment of her epilepsy. However, in the past, we have discusse d the possibility of her seeking a second opinion at either the [facility] or [facility] because even though I think that her odds of being a surgical ca ndidate are relatively remote, she continues to have frequent seizures that can result in fractures of her legs among other injuries. Therefore, the consequence s of her seizures are severe and I think this warrants further investigation in to all of her treatment options. She is agreeable to being [facility] once her broken leg heals. She thinks that this might be in the early p of August. Once she can travel, she will call my office and we will help eladio blacktate the referral for evaluation at the [facility]. She states that Potiga has not been helpful for her in the past. Now that her an ticonvulsant regimen is stable I recommended that she gradually taper off of it. She will taper slowly over the next couple of weeks until she is off of it comp letely. I would like to see her back for a regular followup visit in 4 or 5 ada hs to see how she is doing. In the meantime, if you have any questions or concer ns, please do not hesitate to contact me. I Sincerely, Samy Tsai M.D., Ph.D. Director, [facility] [place], [place] # SIGNED BY Samy Tsai MD Phd ([facility]) 08/15/2013 04:24PM documented in this encounter Plan of Treatment Care Team Description Date Type Specialty Hortencia Stewart, LEAD IOS DEVELOPER [address] [address] [phone] 03/31/2020 Office Visit Neurology documented as of this encounter Visit Diagnoses Not on filedocumented in this encounter
--- OUTSIDE RECORDS SUMMARY | 2020-02-11 03:12 | XMS REPORT | Encounter Summary ---
Author Author [facility] Organization [facility] Address Unknown Phone Unavailable Care Team Providers Care Wood Engraver Name Role Phone Freedom Villarreal PCP Encounter Details Care Team Description Date Type Department [facility], Historical 08/05/2014 PracPart Note [facility] Social History Date Tobacco Use Types Packs/Day Years Used Never Assessed Sex Assigned at Date Recorded Not on file Industry Job Start Date Occupation Not on file Not on file Not on file Travel End Travel History Travel Start No recent travel history available. documented as of this encounter Progress Notes * [facility], Historical - 08/05/2014 8:58 AM CDT . : 08:58am .T: Apt on 08-06-14 Per [facility] this apt time needed to be changed from 1230 to 11. Told to check in at 1030. When I tried calling this pt the second number says the VM is not set up y et and the first one has been disconnected. I had to leave a msg with the EC whi ch is her mother because both number we had for her are not working. I LM with her mom but also the VM said "This is Renny Mireles " GM documented in this encounter Plan of Treatment Care Team Description Date Type Specialty Hortencia Stewart, PROCESS MAINTENANCE TECHNICIAN [address] [address] [phone] 03/31/2020 Office Visit Neurology documented as of this encounter Visit Diagnoses Not on filedocumented in this encounter
--- OUTSIDE RECORDS SUMMARY | 2020-02-11 03:12 | XMS REPORT | Encounter Summary ---
Author Author [facility] Address Unknown Phone Unavailable Care Team Providers Care Senior Premium Auditor Name Role Phone Freedom Villarreal PCP Encounter Details Care Team Description Date Type Department Rudy Butcher MD [address] [facility] [address] [place] [address] [phone] 03/07/2015 PracPart Note [facility] ogy [address] [place] [address] Social History Date Tobacco Use Types Packs/Day Years Used Never Assessed Sex Assigned at Date Recorded Not on file Industry Job Start Date Occupation Not on file Not on file Not on file Travel End Travel History Travel Start No recent travel history available. documented as of this encounter Progress Notes * Rudy Butcher MD - 03/07/2015 1:52 PM CDT . :01:52PM .T:Rx Renew Request denied- patient no showed past two appts- CO From: Prescription, User (RX) Originated by: Prescription, User (RX) Sent: 08/2015 at 07:52AM To: Prescription, User Type: RX Priority: 3 Subject: Rx Renew Request This refill authorization was referred to you by user RX. A refill request has been received from the [employer] network. ATTENTION: Please compare the details of the prescription in practice partner (b y clicking "Link" button below) to be sure they match the details of the refill request in this message. Patient: Name: SUMMER CULLEN. Gender: F Date of : 1970 ID Number: [id number] Medication: Medication to be filled: TOPIRAMATE 200MG Sig: TAKE ONE TABLET BY MOUTH THREE TIMES DAILY Quantity: 270 Days Supply 90 Refills: 4 Total Fills (Rx + Refills): 5 Substitution Status: Substitutions allowed Date of original prescription: 01/29/2014 Date medication last filled: 12/09/2014 Indication(s): (No Data Received) Note: Generic For:TOPAMAX 200 MG TABLET 03/06/2015 8:39:43 AM Pharmacy: Name: [facility] Pharmacist: Prescriber: Name: VIRGINIE HERRERA Technical Data: (for reference) Dataslide Message ID: [id number] Prescription Reference Number: [id number] Prescriber Order Number: [id number] Pharmacy OHPDP ID: [id number] documented in this encounter Plan of Treatment Care Team Description Date Type Specialty Hortencia Stewart, COLLABORATING SUPERVISING PHYSICIAN [facility] [address] [address] [phone] 03/31/2020 Office Visit Neurology documented as of this encounter Visit Diagnoses Not on filedocumented in this encounter
--- OUTSIDE RECORDS SUMMARY | 2020-02-11 03:12 | XMS REPORT | Encounter Summary ---
Author Author [facility] Organization [facility] Address Unknown Phone Unavailable Care Team Providers Care Substance Abuse Services Director Name Role Phone EldonFreedom correa PCP Reason for Visit * Auth/Cert (Routine) Referred By Contact Referred To Contact Status Reason Specialty Diagnoses / Procedures Sj Vivar MD [address] [address] Diagnoses Partial epilepsy with impairment of consciousness, intractable (HCC) P rocedures Case request operating room: REPLACEMENT STIMULATOR VAGAL NERVE WITH INOPERATIVE PROGRAMING Encounter Details Care Team Description Date Type Department Sj Vivar MD 4320 [facility] [address] [place], [place] [id number] VAGAL NERVE STIMULATOR REPLACEMENT WITH INOPERATIVE PROGRAMING 02/25/2016 [facility] [address] [place], [place] [id number] Social History Date Tobacco Use Types Packs/Day Years Used Current Every Day Smoker Cigarettes 0.75 28 Smokeless Tobacco: Never Used Tobacco Cessation: Ready to Quit: Yes; C ounseling Given: No Comments: "I've tried everything there [...] Signs Reading Time Taken Comments Vital Sign 110/74 02/25/2016 9:36 AM CDT Blood Pressure 92 02/25/2016 9:36 AM CDT Pulse 36.4 C (97.5 F) 02/25/2016 9:36 AM CDT Temperature 16 02/25/2016 9:36 AM CDT Respiratory Rate 97% 02/25/2016 9:36 AM CDT Oxygen Saturation - - Inhaled Oxygen Concentration 85.3 kg (188 lb) 02/24/2016 8:40 AM CDT Weight 160 cm (5' 3") 02/24/2016 8:40 AM CDT Height 33.3 02/24/2016 8:40 AM CDT Body Mass Index documented in this encounter Medications at Time of Discharge Start Date End Date Medication Sig Dispensed Refills calcium carbonate-vitamin Take 1 tablet 0 D3 600 mg(1,500mg) -800 by mouth 3 unit Tab (three) times a day. diphenhydrAMINE Take 50 mg by 0 (BENADRYL) 25 mg capsule mouth as needed (Take with Hydrocodone to stop itching). ibuprofen (ADVIL,MOTRIN) Take 800 mg 0 800 MG tablet by mouth 3 (three) times a day as needed. medroxyPROGESTERone Inject 150 mg 0 (DEPO-PROVERA) 150 mg/mL intramuscular injection ly take as directed. Every 6 weeks simvastatin (ZOCOR) 20 MG Take 20 mg by 0 tablet mouth nightly. venlafaxine 225 mg ER 24 Take 225 mg 0 hr tablet by mouth every morning. 02/25/2016 03/04/2016 cephalexin (KEFLEX) 250 Take 2 21 capsule 0 MG capsule capsules (500 mg total) by mouth 3 (three) times a day. 02/25/2016 03/26/2016 oxyCODONE (ROXICODONE) 5 Take 1 tablet 12 tablet 0 MG immediate release (5 mg total) tablet by mouth every 6 (six) hours as needed for pain. TAKE DURING DAYTIME AND WHILE AWAKE FOR SEVERE PAIN ONLY 12/11/2019 carvedilol (COREG) 12.5 Take 12.5 mg 0 MG tabletIndications: D/C by mouth 3 (three) times a day. 03/11/2016 folic acid (FOLVITE) 400 Take 400 mcg 0 MCG tablet by mouth daily. 12/22/2016 lamoTRIgine (LAMICTAL) Take 200 mg 0 200 MG tablet by mouth 3 (three) times a day. 01/09/2018 melatonin 10 mg Tab Take 10 mg by 0 mouth nightly. 01/09/2018 simethicone 125 mg cap Take 2 0 capsules by mouth as needed. 08/17/2017 topiramate (TOPAMAX) 200 Take 200 mg 0 MG tablet by mouth 3 (three) times a day. documented as of this encounter H&P Notes * Sj Vivar MD - 02/25/2016 8:05 AM CDT H&P was reviewed, the patient was examined, no change has occurred in the patient's condition since H&P completed. * Sj Vivar MD - 02/13/2016 12:49 PM CDT NEW PATIENT GENERAL ENT VISIT SUBJECTIVE: Reason for visit: Ms. Cullen is seen in consultation at the request of Samy Tsai MD for the evaluation of Chief Complaint Patient presents with VNS Chief Complaints: Refractory epilepsy HPI: Rajiv Cullen is a 45 y.o. female who presents today for evaluation VNS generator end of service. The patient reports that she has had much improved sei zure control with VNS therapy. Her most recent surgery was by Dr. Laz manjarrez nd the leads and generator (103) were both replaced 3 years ago. Recent testing by Dr. Tsai due to increased seizures revealed VNS near end of service. Mild increased seizures. + LOC with seizures when severe. Previous therapies: multiple epilepsy medications. Past Medical History She has a past medical history of Seizures; Kidney stones; and Migraine. Past Surgical History Her has past surgical history that includes Brain surgery (1995 & 1997); Ankle surgery (2009); Kidney stone surgery (approx. 2009); Tubal ligation (1992); SECTION (1989); Colonoscopy; and Leg Surgery. Past Family History Her family history includes Alcohol abuse in her father; Diabetes in her father; Heart disease in her other and other; Hyperlipidemia in her father and mother; Migraines in her cousin and mother; Rheum arthritis in her other. Past Social History She reports that she has been smoking Cigarettes. She has been smoking about 0 .75 packs per day. She has never used smokeless tobacco. She reports that she do es not drink alcohol or use illicit drugs. Medications/Allergies/Immunizations Her current medication(s) include: Current Outpatient Rx Name Route Sig Dispense Refill calcium carbonate-vitamin D3 600 mg(1,500mg) -800 unit Tab Oral Take 1 tablet by mouth 3 (three) times a day. carvedilol (COREG) 6.25 MG tablet Oral Take 3.125 mg by mouth 2 (two) times a day. diphenhydrAMINE (BENADRYL) 25 mg capsule Oral Take 50 mg by mouth as needed (Take with Hydrocodone to stop itching). folic acid (FOLVITE) 400 MCG tablet Oral Take 400 mcg by mouth daily. HYDROcodone-acetaminophen (NORCO) 5-325 mg per tablet Oral Take 1-2 tablets by mouth every 4 (four) hours as needed. ibuprofen (ADVIL,MOTRIN) 800 MG tablet Oral Take 800 mg by mouth 3 (three) times a day as needed. lamoTRIgine (LAMICTAL) 200 MG tablet Oral Take 200 mg by mouth 3 (three) times a day. medroxyPROGESTERone (DEPO-PROVERA) 150 mg/mL injection Intramuscular Inject 150 mg intramuscularly take as directed. Every 6 weeks melatonin 3 mg TbDL tablet Oral Take 3-6 mg by mouth nightly as needed. topiramate (TOPAMAX) 200 MG tablet Oral Take 200 mg by mouth 3 (three) times a day. venlafaxine (EFFEXOR-XR) 150 MG ER 24 hr capsule Oral Take 150 mg by mouth daily. simethicone 125 mg cap Oral Take 2 capsules by mouth as needed. simvastatin (ZOCOR) 20 MG tablet Oral Take 20 mg by mouth nightly. Allergies: Aspirin and Tylenol, Immunizations: There is no immunization history on file for this patient. Review of Systems: Review of Systems HENT: Negative for sore throat. Eyes: Negative for redness. Respiratory: Negative for wheezing. Cardiovascular: Negative for PND. Gastrointestinal: Negative for melena. Genitourinary: Negative for flank pain. Musculoskeletal: Negative for falls. Skin: Negative for itching. Neurological: Positive for seizures. Negative for loss of consciousness and weak ness. Endo/Heme/Allergies: Negative for polydipsia. Psychiatric/Behavioral: Negative for memory loss. As above, otherwise the balance of 11-point review of systems was negative. OBJECTIVE: Physical Exam Vital Signs: BP 117/81 mmHg | Pulse 106 | Ht 1.575 m (5' 2") | Wt 84.823 kg (18 7 lb) | BMI 34.19 kg/m2 General: Well-developed, well-nourished Communication and Voice: Clear pitch and clarity Respiratory Respiratory effort: Equal inspiration and expiration without stridor Cardiovascular Peripheral Vascular: Warm extremities Eyes: No nystagmus with equal extraocular motion bilaterally Neuro/Psych/Balance: Patient oriented to person, place, and time; Appropriate m ood and affect; Gait is intact with no imbalance; Cranial nerves I-XII are inta ct Head and Face Inspection: Normocephalic and atraumatic without mass or lesion Salivary Glands: No mass or tenderness Facial Strength: Facial motility symmetric and full bilaterally ENT Pinna: External ear intact and fully developed External canal: Canal is patent with intact skin Tympanic Membrane: Clear and mobile bilaterally External nose: No scar or anatomic deformity Internal Nose: On anterior rhinoscopy, clear Lips, Teeth, and gums: Mucosa and teeth intact and viable Oral cavity/oropharynx: No erythema or exudate with non-obstructive tonsils Nasopharynx: No mass or lesion with intact mucosa Larynx: Unable to visualize due to gag reflex Neck Neck and Trachea: Midline trachea without mass or lesion Thyroid: No mass or nodularity Lymphatics: No lymphadenopathy ASSESSMENT Assessment Encounter Diagnosis Name Primary? Partial epilepsy with impairment of consciousness, intractable PLAN: 1) Vagus Nerve Stimulator Battery Replacement- The patient has seen significant seizure control benefit with their VNS and agnieszka ce diagnostic testing reveals that the generator is near the end of service. We will plan to replace the generator. Risks include but not limited to infection (requiring IV antibiotics or device explantation), bleeding, changes to voice or swallowing (rare), lead fracture (requiring cervical lead revision, immediate or soon in the post-operative period), and the expected need for generator repla cement again in the future. Neurology follow up will be scheduled the day of [facility] for device programming. Thanks for allowing me to participate in the care of this pleasant patient. Plan No orders of the defined types were placed in this encounter. documented in this encounter Nursing Notes * Marion Villatoro RN - 02/25/2016 9:55 AM CDT Discharge instructions given and copy and scripts given by ELVIRA Pardo. All belong ings with pt documented in this encounter Miscellaneous Notes * Operative Note - Sj Vivar MD - 02/25/2016 1:33 PM CDT Name: RAJIV CULLEN _[id number] Date of : 1970 Attending Physician: Sj Vivar MD Date of Procedure: 02/25/2016 PREOPERATIVE DIAGNOSIS: Epilepsy with complex seizures. POSTOPERATIVE DIAGNOSIS: Epilepsy with complex seizures. PROCEDURES PERFORMED: 1. Vagal nerve stimulator placement. 2. Intraoperative device testing. PRIMARY SURGEON: Sj Vivar M.D. EXECUTIVE ASSISTANT SURGEON: Clark Camara M.D. ANESTHESIA: General via endotracheal tube. FINDINGS: Model 103 generator removed and 105 generator replaced. Impedance ok ay at approximately 3500 ohms. CONDITIONS: Clean. ESTIMATED BLOOD LOSS: Minimal. SPECIMENS: Old generator returned to [email or web address]. IMPLANTS: [employer] 105 generator. COMPLICATIONS: None. DISPOSITION: Stable to PACU. DESCRIPTION OF PROCEDURE: After informed consent was obtained, the patient was brought in the operating room, placed in the supine position. Anesthesia was in duced and the patient was intubated by the anesthesia team. A formal timeout wa s taken and the patient, procedure to be performed, and site of surgery were agr eed upon by all present. The head of bed was rotated to 90 degrees counterclock quintero and the patient was prepped and draped in standard fashion. An ink pen was used to delineate an incision at the prior site of surgery, 1% lidocaine with 1 :100,000 epinephrine was injected and infiltrated into the skin and injected sub cutaneously. A 15 blade was then used to make an incision and dissect sharply t hrough the skin into the subcutaneous fat at the left chest wall/deltopectoral l ine. The incision was carried down in the subcutaneous fat and then blunt disse ction with a finger was used to dissect down to the capsule of the generator, wh ich was identified. The generator capsule was incised with a 15 blade and the g enerator capsule was released from the generator. The generator was removed out of the wound pocket and a screw was used to release the generator from the lead s. The new generator was then attached and screwed to the leads and placed back into the wound pocket. The device was interrogated and lead impedance was okay at 3500 ohms. The generator was secured to the wound cavity with a Prolene sut ure. The wound cavity was then irrigated and suctioned x3 with antibiotic steri le solution. The wound cavity was then closed in 3 layers with interrupted Vicr yls for the Josselyn's fascia and the deep layer, a running Monocryl was used to c lose the skin with overlying Dermabond. Adequate hemostasis was confirmed. The patient was then turned over to anesthesia, awakened, extubated and safely martel sported to PACU breathing spontaneously. All counts were correct x2 and Dr. Shyam rai was present for and participated in the entire procedure. Sj Vviar MD Dictated By: Clark Camara MD [id number] CC: * Brief Operative Note - Sj Vivar MD - 02/25/2016 8:06 AM CDT VAGAL NERVE STIMULATOR REPLACEMENT WITH INOPERATIVE PROGRAMING Procedure Note Rajiv Gotti Subhash 02/25/2016 Pre-op Diagnosis: EPILEPSY WITH COMPLEX SEIZURES Post-op Diagnosis: Post-Op Diagnosis Codes: * Partial epilepsy with impairment of consciousness, intractable [G40.219] Procedure(s): 1) VAGAL NERVE STIMULATOR REPLACEMENT; 2) INOPERATIVE DEVICE DIAGNOSTIC TESTING Surgeon(s) and Role: * Sj Vivar MD - Primary * Clark Camara MD - Resident - Assisting Anesthesia Type: General Staff: Wool Fleece Sorter: Elen Ruiz RN Scrub Person: Jihan Kamara Anesthesiologist: Jacob Roberson MD Supervisor Cd Area: Jabari Taylor MD Findings: Model 103 removed and 105 replaced. Impedence "ok" at approximately 3500 Ohms. Conditions: Clean Estimated Blood Loss: Minimal Specimens: None, old generator returned to [employer] Implants: Implant Name Type Inv. Item Serial No. Broker Assistant Lot No. LRB No. Used Action IMPLANT GENERATOR ASPIRE HC MODEL 105 - [id number] Non-Tissue Implant IMPLANT GEN ERATOR ASPIRE MODEL 105 [id number] [employer] Left 1 Implanted VAGAL NERVE STIMULATOR 1 Explanted Complications: None Disposition: PACU stable I was personally present for this entire surgery and performed it with a residen shantal Vivar Date: 02/25/2016 Time: 8:06 AM documented in this encounter Plan of Treatment Care Team Description Date Type Specialty Hortencia Stewart, MAINTENANCE SUPERINTENDENT [address] [address] [phone] 03/31/2020 Office Visit Neurology documented as of this encounter Procedures Comments Procedure Name Priority Date/Time Associated Diag nosis REPLACEMENT, GENERATOR, 02/25/2016 Partial epile psy with VAGUS NERVE 7:33 AM CDT impairment of NEUROSTIMULATOR consciousness, intractable (HCC) URINE TEST STAT 02/25/2016 6:20 AM CDT documented in this encounter Results * Urine Test (02/25/2016 6:20 AM CDT) UCG Urine Negative Negative [facility] Specimen Urine Performing Organization Address City/State/Zipcode Ph one Number [address] [address] LABORATORIES documented in this encounter Visit Diagnoses Diagnosis Partial epilepsy with impairment of con sciousness, intractable (HCC) Localization-related (focal) (partial) epilepsy and epileptic syndromes with complex partial seizures, with intractable epilepsy documented in this encounter Administered Medications Action Date Dose Rate Site Medication Order MAR Action 02/25/2016 9:20 AM CDT 25 mcg fentaNYL (SUBLIMAZE) 50 mcg/mL injection Given 25-50 mcg 25-50 mcg, Intravenous, Every 5 min PRN , pain, Starting Tue02/25/16 at 0845, PAC U (only), Give only if RR is greater than 8 breaths/min. Maximum of 200 mcg in 2 hours., 25 mcg Given 02/25/2016 9:04 AM CDT 25 mcg Given 02/25/2016 8:56 AM CDT 02/25/2016 7:58 AM CDT gentamicin (GARAMYCIN) 80 mg, polymyxin Given B 500,000 Units in sodium chloride irrigation (NS) 0.9 % 1,000 mL OR irrigation As needed, Starting Tue02/25/16 at 0758 , Intra-op 02/25/2016 9:19 AM CDT 800 mg ibuprofen (ADVIL,MOTRIN) tablet 800 mg Given 800 mg, Oral, Once, Tue02/25/16 at 0945 , For 1 dose, PACU & Post-op 02/25/2016 7:55 AM CDT 9 mL lidocaine-EPINEPHrine (XYLOCAINE W/EPI) Given 1 %-1:100,000 injection As needed, Starting Tue02/25/16 at 0755 , Intra-op documented in this encounter
--- OUTSIDE RECORDS SUMMARY | 2020-02-11 03:12 | XMS REPORT | Encounter Summary ---
Author Author [facility] Organization [facility] Address Unknown Phone Unavailable Care Team Providers Care Gyn Name Role Phone EldonFreedom correa PCP Reason for Referral * Auth/Cert (Routine) Referred By Contact Referred To Contact Status Reason Specialty Diagnoses / Procedures Sj Vivar MD [address] [facility] [address] [place] [address] Diagnoses Partial epilepsy with impairment of consciousness, intractable (HCC) P rocedures Case request operating room: REPLACEMENT STIMULATOR VAGAL NERVE WITH INOPERATIVE PROGRAMING Reason for Visit * Reason Comments VNS * Consultation (Urgent) Referred By Contact Referred To Contact Status Reason Specialty Diagnoses / Procedures Samy Tsai MD [address] [facility] [address] [place] [address] Sj Vivar MD [address] [facility] [address] [place] [address] Closed Specialty Services Otolaryngology Diagnoses Required Partial epilepsy with impairment of consciousness, intractable (HCC) Encounter Details Care Team Description Date Type Department Sj Vivar MD [address] [facility] [address] [place] [address] [phone] Partial epilepsy with impairment of cons ciousness, intractable (HCC) 02/13/2016 Initial consult [facility] [address] [facility] [address] [place] [address] Social History Date Tobacco Use Types Packs/Day [...] Signs Reading Time Taken Comments Vital Sign 117/81 02/13/2016 12:47 PM CDT Blood Pressure 106 02/13/2016 12:47 PM CDT Pulse - - Temperature - - Respiratory Rate - - Oxygen Saturation - - Inhaled Oxygen Concentration 84.8 kg (187 lb) 02/13/2016 12:47 PM CDT Weight 157.5 cm (5' 2") 02/13/2016 12:47 PM CDT Height 34.2 02/13/2016 12:47 PM CDT Body Mass Index documented in this encounter Progress Notes * Sj Vivar MD - 02/13/2016 12:49 PM CDT NEW PATIENT GENERAL ENT VISIT SUBJECTIVE: Reason for visit: Ms. Cullen is seen in consultation at the request of Samy Tsai MD for the evaluation of Chief Complaint Patient presents with VNS Chief Complaints: Refractory epilepsy HPI: Summer Cullen is a 45 y.o. female who [...] up will be scheduled the day of [facility] for device programming. Thanks for allowing me to participate in the care of this pleasant patient. Plan No orders of the defined types were placed in this encounter. documented in this encounter Plan of Treatment Care Team Description Date Type Specialty Hortencia Stewart, INBOUND CUSTOMER SERVICE AGENT [address] [address] [phone] 03/31/2020 Office Visit Neurology documented as of this encounter Visit Diagnoses Diagnosis Partial epilepsy with impairment of con sciousness, intractable (HCC) Localization-related (focal) (partial) epilepsy and epileptic syndromes with complex partial seizures, with intractable epilepsy documented in this encounter
--- OUTSIDE RECORDS SUMMARY | 2020-02-11 03:12 | XMS REPORT | Encounter Summary ---
Author Author [facility] Organization [facility] Address Unknown Phone Unavailable Care Team Providers Care Oracle Architect Name Role Phone EldonFreedom correa PCP Reason for Visit * Auth/Cert (Routine) Referred By Contact Referred To Contact Status Reason Specialty Diagnoses / Procedures Sj Vivar MD [address] [facility] [address] [place] [address] Diagnoses Partial epilepsy with impairment of consciousness, intractable (HCC) P rocedures Case request operating room: REPLACEMENT STIMULATOR VAGAL NERVE WITH INOPERATIVE PROGRAMING Encounter Details Care Team Description Date Type Department Sj Vivar MD [address] [facility] [address] [place], [place] [id number] Partial epilepsy with impairment of cons ciousness, intractable (HCC) 02/25/2016 [facility] Encounter [address] [place], [place] [id number] Social History Date Tobacco Use Types Packs/Day [...] up will be scheduled the day of [facility] for device programming. Thanks for allowing me [...] device testing. PRIMARY SURGEON: Sj Vivar M.D. SCCM ADMINISTRATOR SURGEON: Clark Camara M.D. ANESTHESIA: General via endotracheal tube. FINDINGS: Model 103 generator removed and 105 generator replaced. Impedance ok ay at approximately 3500 ohms. CONDITIONS: Clean. ESTIMATED BLOOD LOSS: Minimal. SPECIMENS: Old generator returned to [employer]. IMPLANTS: [employer] 105 generator. COMPLICATIONS: None. DISPOSITION: Stable to [...] and participated in the entire procedure. Sj Vivar MD Dictated By: Clark Camara MD [id number] CC: * Brief Operative Note - Sj [...] Resident - Assisting Anesthesia Type: General Staff: Audiovisual Equipment Operator: Elen Ruiz RN Scrub Person: Jihan Kamara Anesthesiologist: Jacob Roberson MD Ip Counsel: Jabari Taylor MD Findings: Model 103 removed and 105 replaced. Impedence "ok" at approximately 3500 Ohms. Conditions: Clean Estimated Blood Loss: Minimal Specimens: None, old generator returned to [employer] Implants: Implant Name Type Inv. Item Serial No. Litigation Examiner Lot No. LRB No. Used Action IMPLANT GENERATOR ASPIRE HC MODEL 105 - [id number] Non-Tissue Implant IMPLANT GEN ERATOR ASPIRE HC MODEL 105 [id number] [employer] Left 1 Implanted VAGAL NERVE STIMULATOR 1 Explanted Complications: None Disposition: PACU stable I was personally present for this entire surgery and performed it with a residen shantal Vivar Date: 02/25/2016 Time: 8:06 AM documented in this encounter Plan of Treatment Care Team Description Date Type Specialty Hortencia Stewart, TRANSIT OPERATOR [address] [address] [phone] 03/31/2020 Office Visit Neurology documented as of this encounter Procedures Comments Procedure Name Priority Date/Time Associated Diag nosis REPLACEMENT, GENERATOR, 02/25/2016 Partial epile psy with VAGUS NERVE 7:33 AM CDT impairment of NEUROSTIMULATOR consciousness, intractable (HCC) URINE TEST STAT 02/25/2016 6:20 AM CDT documented in this encounter Results * Urine Test (02/25/2016 6:20 AM CDT) UCG Urine Negative Negative [facility] Specimen Urine Performing Organization Address City/State/Zipcode Ph one Number [address] [address] LABORATORIES documented in this encounter Visit Diagnoses [...] Every 5 min PRN , pain, Starting 02/25/16 at 0845, PAC U (only), Give only if RR is greater than 8 breaths/min. Maximum of 200 mcg in 2 hours., 25 mcg Given 02/25/2016 9:04 AM CDT 25 mcg Given 02/25/2016 8:56 AM CDT 02/25/2016 9:19 AM CDT 800 mg ibuprofen (ADVIL,MOTRIN) tablet 800 mg Given 800 mg, Oral, Once, Tue02/25/16 at 0945 , For 1 dose, PACU & Post-op documented in this encounter
--- OUTSIDE RECORDS SUMMARY | 2020-02-11 03:12 | XMS REPORT | Encounter Summary ---
Author Author [facility] Organization [facility] Address Unknown Phone Unavailable Care Team Providers Care Lab Animal Technician Name Role Phone PCP Unavailable Encounter Details Care Team Description Date Type Department Samy Tsai MD [address] [facility] [address] [place] [address] [phone] 07/30/2014 Hist-Visit [facility] Social History Date Tobacco [...] Date Type Specialty Hortencia Stewart, CARRIE [address] [facility] [address] [place] [address] [phone] 03/31/2020 Office Visit Neurology documented as of this encounter Visit Diagnoses Not on filedocumented in this encounter
--- OUTSIDE RECORDS SUMMARY | 2020-02-11 03:12 | XMS REPORT | Encounter Summary ---
Author Author [facility] Organization [facility] Address Unknown Phone Unavailable Care Team Providers Care Environmental Studies Program Director Name Role Phone EldonFreedom correa PCP Reason for Referral * Consultation (Urgent) Referred By Contact Referred To Contact Status Reason Specialty Diagnoses / Procedures Samy Tsai MD [address] [facility] [address] [place] [address] Sj Vivar MD [address] [facility] [address] [place] [address] Closed Specialty Services Otolaryngology Diagnoses Required Partial epilepsy with impairment of consciousness, intractable (HCC) Reason for Visit * Reason Comments Seizures Follow-up Follow up for seizures. Pt states she is feeling worse - having a lot of seizures. Encounter Details Care Team Description Date Type Department Samy Tsai MD [address] [facility] [address] [place], [place] [id number] Partial epilepsy with impairment of cons ciousness, intractable (HCC) (Primary Dx) 01/30/2016 Office Visit [facility] [address] [place] [address] Social History Date Tobacco Use Types Packs/Day [...] Signs Reading Time Taken Comments Vital Sign 117/72 01/30/2016 9:02 AM COMMISSION BROKER Blood Pressure 111 01/30/2016 9:02 AM COMMISSION BROKER Pulse - - Temperature - - Respiratory Rate - - Oxygen Saturation - - Inhaled Oxygen Concentration 84.8 kg (187 lb) 01/30/2016 9:02 AM COMMISSION BROKER Weight 157.5 cm (5' 2") 01/30/2016 9:02 AM COMMISSION BROKER Height 34.2 01/30/2016 9:02 AM COMMISSION BROKER Body Mass Index documented in this encounter Progress Notes * Samy Tsai MD - 01/30/2016 9:30 AM COMMISSION BROKER I saw Summer Cullen in our Comprehensive [...] either. She has been seen at the [facility] in the past and underwent invasi ve video EEG monitoring in 1995 or 1996 but they were not able to find a single focus for her epilepsy. She underwent repeat video EEG monitoring in February, at [facility]. Four seizures were captured with unclear localization. [...] Since her last visit with me on January 29, 2014, she has not followed up until now . At that time, she was typically having a couple of seizures per week. I had re commended that she go to the [facility] for a second opinion on whether she rick ht be a candidate for surgical resection. She has not done so and has not follow ed up until now. She states that since her last visit with me, her seizure frequ ency actually improved where she would have perhaps a couple of seizures per mon . Unfortunately over the last month or so, there has been an increase in her s eizure frequency where she is now having 2 or 3 seizures per day. There are othe rwise no new neurological symptoms and she continues to tolerate her current dos ages of Lamictal and Topamax without any significant side effects. Past medical history: 1. History of kidney [...] of seizures Social history: She lives in [facility] by herself. She smokes approximately one pack of cigarettes per day and has been smoking for the past 22 years. She does not drink alcohol or use illicit drugs. She is on disability. Examination: Filed Vitals: 01/30/16 0902 BP: 117/72 Pulse: 111 Height: 1.575 m (5' 2") Weight: 84.823 kg (187 lb) Body mass index is 34.19 kg/(m^2). On examination, she was well-appearing and [...] had no drift and no asterixis. Her lipxkz-nf-stib, mlri-fv-acbd, and rapid alternating movements were intact. Her [...] but did not reprogram her vagal nerve stimulator today. The gener ator has reached end of service and no stimulation is being provided. In the [facility] t, her settings were the following: The generator [...] and a pulse width of 500 s. In summary, Summer Cullen is a 45-year-old [...] past that she be seen at the [facility] to see if they can do additional t esting to determine whether she might be a surgical candidate for the treatment of her refractory epilepsy. She has not done this. She returns now after not fol lowing up with me since January 29, 2014 because of an increase in seizures over e last month. Interrogation of her vagal nerve stimulator reveals that it has re ached end of service. I suspect that this is the reason for her increased seizur e frequency. I will try to have her see Dr. Vivar as soon as possible to have t he vagal nerve stimulator replaced. Because the generator has reached end of ser vice, when we turn it back on we will most likely have to titrate the settings g radually. She understands that this may take overall a couple of months or so. I n the meantime I expect that her seizure frequency will continue to be relativel y frequent. In the past her seizures have resulted in fractures to her legs. I r ecommended that she be very cautious over these next few months as we attempt to improve her seizure frequency. She will continue her current dosages of Lamictal and Topamax without a change. Once we can stabilize her seizure frequency, then given the extreme refractory nature of her epilepsy with respect to medications, then I will again recommend that she go to the [facility] to see if she would be a surgical candidate. I will see her back the same day that she has her gen erator replacement so that I can start reprogramming it. In the meantime, she k nows that if things are not going well with respect to her seizures, she should contact my office. ISSION BROKER documented in this encounter Plan of Treatment Care Team Description Date Type Specialty Hortencia Stewart, BIBLICAL LANGUAGES PROFESSOR [address] [address] [phone] 03/31/2020 Office Visit Neurology Order Schedule Name Type Priority Associated Diag noses 1 Occurrences starting 01/30/2016 until 08/01/2016 Amb Referral To Ent Outpatient Routine Partial ep ilepsy with Referral impairment of consciousness, intractable (HCC) documented as of this encounter Visit Diagnoses Diagnosis Partial epilepsy with impairment of con sciousness, intractable (HCC) Localization-related (focal) (partial) epilepsy and epileptic syndromes with complex partial seizures, with intractable epilepsy documented in this encounter
--- OUTSIDE RECORDS SUMMARY | 2020-02-11 03:12 | XMS REPORT | Encounter Summary ---
Author Author [facility] Organization [facility] Address Unknown Phone Unavailable Care Team Providers Care Account Manager Name Role Phone Freedom Villarreal PCP Encounter Details Care Team Description Date Type Department Virginie Herrera MD [address] [facility] [address] [place] [address] [phone] 08/10/2013 PracPart Note [facility] ogy [address] [place] [address] Social History Date Tobacco Use Types Packs/Day Years Used Never Assessed Sex Assigned at Date Recorded Not on file Industry Job Start Date Occupation Not on file Not on file Not on file Travel End Travel History Travel Start No recent travel history available. documented as of this encounter Progress Notes * Virginie Herrera MD - 08/10/2013 3:36 PM CDT . :03:36PM .T:Rx Renew Request denied- patient needs appt-co From: Originated by: Sent: 08/09/2013 at 10:12AM To: Prescription, User (RX) Type: RX Priority: 3 Subject: Rx Renew Request A refill request has been received from the [facility] [employer] [facility] network. ATTENTION: Please compare the details of the prescription in practice partner (b y clicking "Link" button below) to be sure they match the details of the refill request in this message. Patient: Name: SUMMER CULLEN. Gender: F Date of : 1970 ID Number: [id number] Medication: Medication to be filled: POTIGA 300MG Sig: TAKE ONE TABLET (300MG) BY MOUTH THREE TIMES DAILY Quantity: 90 Tablet Days Supply 30 Total Fills (Rx + Refills): 1 Substitution Status: Substitution not allowed by prescriber (i.e. SERGO) Date of original prescription: 06/14/2013 Date medication last filled: 06/14/2013 Indication(s): (No Data Received) Pharmacy: Name: [facility] Pharmacist: Prescriber: Name: VIRGINIE HERRERA Technical Data: (for reference) adflyer Message ID: [id number] Prescription Reference Number: [id number] Pharmacy SDPDP ID: [id number] documented in this encounter Plan of Treatment Care Team Description Date Type Specialty Hortencia Stewart, TECHNOLOGIES DIVISION CHAIR [facility] [address] [address] [phone] 03/31/2020 Office Visit Neurology documented as of this encounter Visit Diagnoses Not on filedocumented in this encounter
--- OUTSIDE RECORDS SUMMARY | 2020-02-11 03:13 | XMS REPORT | Encounter Summary ---
Author Author [facility] Organization [facility] Address Unknown Phone Unavailable Care Team Providers Care Railroad Maintenance Clerk Name Role Phone PCP Unavailable Encounter Details Care Team Description Date Type Department Samy Tsai MD [address] [facility] [address] [place] [address] [phone] 07/31/2013 Hist-Visit [facility] Social History Date Tobacco Use Types Packs/Day Years Used Never Assessed Sex Assigned at Date Recorded Not on file Industry Job Start Date Occupation Not on file Not on file Not on file Travel End Travel History Travel Start No recent travel history available. documented as of this encounter Progress Notes * Samy Tsia MD - 07/31/2013 12:00 PM CDT . : 12:00pm .T: Return Patient [facility], [facility] [address] [place] [address] [address] [facility] [address] [place] [address] [place] [address] [place] [address] [place] [address] Ness Serra M.D. Anthony Serra M.D. Alem Murphy M.D. Velia Ortiz M.D. Rex Curry M.D. Wanda Castillo M.D. Dayna Pina M.D. Earl Staley D.O. Louis Lowe M.D. Daysi James, MSN,RN,ANP, [facility] Samy Tsai M.D., Ph.D. Rudy Butcher M.D. Osmani Putnam M.D. . 07/31/13 Freedom Villarreal DO [address] [facility] [address] RE: Summer Cullen : [address] [...] either. She has been seen at the [facility] in the past and underwent invasive video EEG monitoring in 1995 or 1996 but they were not able to find a single focus for her epilepsy. She underwent repeat video EEG monitoring in February, at [facility]. Four seizures were captured with unclear [...] Since her last visit with me on July 20, 2013, her seizure frequency has remai julio césar stable. Unfortunately, she continues to have approximately 2 seizures per we ek. One of these resulted in a laceration to her left eyebrow that required sutu res. She is here for continued reprogramming of her vagal nerve stimulator given her recent lead replacement on June 29, 2013. She is tolerating her current se ttings without any significant issues. Past medical history: 1. History of kidney [...] of seizures Social history: She lives in [facility] by herself. She smokes approximately one pack of cigarettes per day and has been smoking for the past 22 years. She does not drink alcohol or use illicit drugs. She is on disability. The patient's vital signs taken today in my office are as follows: Bp: 110/68, Pulse: 84 Height: 5'2", Weight: 195 lbs On examination, she was well-appearing and in [...] had no drift and no asterixis. Her nrtwwl-yt-jfpg, eiid-df-jvrj, and rapid alternating movements were intact. She ambulated with the assistance of a wheelchair because of her recent leg fracture and her right leg was in a cast. T here were sutures above her left eye because of the recent laceration suffered f rom a seizure I interrogated and reprogrammed her vagal stimulator today. The generator and le ad were replaced on June 29, 2013. The stimulation intensity is 1.25 milliamps which I increased to 1.50 milliamps. Her previous stimulation intensity was 2.0 mAmps. The frequency was 30Hz with a pulse width of 500 microseconds. The on anita e is 30 seconds with an off time of 1.1 minutes. The magnet current strength is 1.50 mAmps which I increased to 1.75 milliamps with an on time of 60 seconds and a pulse width of 500 s. Systems diagnostics revealed no issues and the battery is working [...] seeking a second opinion at either the [facility] or [facility] because even though I think that her odds of being a surgical ca ndidate are relatively remote, she continues to have frequent seizures that can result in fractures of her legs among other injuries. Therefore, the consequence s of her seizures are severe and I think this warrants further investigation in to allof her treatment options. I increased the settings on her vagal nerve stimulator and she seemed to tolerat e these in the office. I would like to see her back in approximately one week or so to see how she is doing and to increase her vagal nerve stimulator settings further. In the meantime, if you have any questions or concerns, please do not hesitate to contact me. Sincerely, Samy Tsai M.D., Ph.D. Director, [facility] [place], [place] # SIGNED BY Samy Tsai MD Phd ([facility]) 07/31/2013 12:06PM documented in this encounter Plan of Treatment Care Team Description Date Type Specialty Hortencia Stewart, DISH MACHINE OPERATOR [address] [address] [phone] 03/31/2020 Office Visit Neurology documented as of this encounter Visit Diagnoses Not on filedocumented in this encounter
--- OUTSIDE RECORDS SUMMARY | 2020-02-11 03:13 | XMS REPORT | Encounter Summary ---
Author Author [facility] Organization [facility] Address Unknown Phone Unavailable Care Team Providers Care Ethanol Quality Leader Name Role Phone PCP Unavailable Encounter Details Care Team Description Date Type Department Samy Tsai MD [address] [facility] [address] [place] [address] [phone] 07/20/2013 Hist-Visit [facility] Social History Date Tobacco Use Types Packs/Day Years Used Never Assessed Sex Assigned at Date Recorded Not on file Industry Job Start Date Occupation Not on file Not on file Not on file Travel End Travel History Travel Start No recent travel history available. documented as of this encounter Progress Notes * Samy Tsai MD - 07/20/2013 11:18 AM CDT . : 11:18am .T: Return Patient [facility], [facility] [address] [place] [address] [address] [facility] [address] [place] [address] [place] [address] [place] [address] [place] [address] Ness Serra M.D. Anthony Serra M.D. Alem Murphy M.D. Velia Ortiz M.D. Rex Curry M.D. Wanda Castillo M.D. Dayna Pina M.D. Earl Staley D.O. Louis Lowe M.D. Daysi James, MSN,RN,ANP, [facility] Samy Tsai M.D., Ph.D. Rudy Butcher M.D. Osmani Putnam M.D. . 07/20/13 Freedom Villarreal DO [address] [place] [address] [place] [address] RE: Summer Cullen : [address] [...] either. She has been seen at the [facility] in the past and underwent invasive video EEG monitoring in 1995 or 1996 but they were not able to find a single focus for her epilepsy. She underwent repeat video EEG monitoring in February, at [facility]. Four seizures were captured with unclear [...] not had a PET scan re cently. During the summer of 2011, she started Potiga and had titrated to a dose of 300 mg p.o. b.i.d. Her seizure frequency continue to be approximately 3 or 4 seizure s per month but she thought that her seizures had become milder. Since her last visit with me on February 21, 2013, she reports that she has been having approximat turner 2 seizures per week. One of her seizures approximately 3 months ago resulted in a fracture of her right lower leg. Overall, it does not appear that the Poti ga has made a significant improvement in her seizure frequency. After her last v isit with me I recommended that she taper off of the Potiga. She has decreased t o 150/300 mg p.o. b.i.d.. At her last visit with me on June 12, 2013, her vagal nerve stimulator demonstra monie high lead impedance. She underwent replacement of the generator and leads on June 29, 2013. Unfortunately, since her vagus nerve stimulator has not been wo rking she has noticed an increase in seizures and this resulted in a broken leg last week. She returns today to have the stimulator turned back on since it has been over 2 weeks since the lead was replaced. Past medical history: 1. History of kidney [...] Vitamin C with vitamin D 6. Propranolol 60mgp.o. b.i.d. for migraine prophylaxis 7. Potiga 150/300 mg p.o. b.i.d. 8. Vitamin D and calcium She has tried Dilantin, Tegretol, Phenobarbital, Depakote, and Keppra in the pas t. She thinks that she may have tried Vimpat but she is not entirely sure. She t hinks that this may have increased her seizure frequency so it was discontinued. She has not tried Zonisamide. Family history: There is no family history of seizures Social history: She lives in [facility] by herself. She smokes approximately one pack of cigarettes per day and has been smoking for the past 22 years. She does not drink alcohol or use illicit drugs. She is on disability. On examination, she was well-appearing and in [...] had no drift and no asterixis. Her hdvyvo-wk-rirz, fhdl-tp-kdxc, and rapid alternating movements were intact. She ambulated with the assistance of a wheelchair because of her recent leg fracture and her right leg was in a cast. T he majority of this 25 minute visit was spent counseling the patient regarding h er treatment options for the management of her epilepsy. I interrogated and reprogrammed her vagal stimulator today. The generator and le ad were replaced on June 29, 2013. The stimulation intensity is 1.25 milliamps. She was not able to tolerate 1.50 milliamps. Her previous stimulation intensity was 2.0mAmps. I was able to program the frequency to 30Hz and a pulse width of 500 microseconds. The on time is 30 seconds with an off time of 1.1 minutes. Th e magnet current strength is 1.50 mAmps with an on time of 60 seconds and a puls e width of 500 s. Systems diagnostics revealed no issues and the battery is wo rking well with 100% service remaining. In summary, [...] seeking a second opinion at either the [facility] or [facility] because even though I think that her odds of being a surgical ca ndidate are relatively remote, she continues to have frequent seizures that can result in fractures of her legs. Therefore, the consequences of her seizures are severe and I think this warrants a more thorough investigation into all of her treatment options. Her vagal nerve stimulator was recently replaced and she underwent a lead revisi on as well. In this setting she has noticed an increase in seizures so she has d ecided to not wean off the Potiga further until her seizure frequency stabilizes . I think that this is reasonable. I have started to reprogram her stimulator. B ecause of the lead revision she cannot tolerate her previous setting so we will have to titrate slowly. She was able to tolerate 1.25 milliamps today. I would l aixa to see her back in approximately one week or so and we will try to increase the stimulator further with the goal to try to get her back to 2.0 milliamps as soon as we can. In the meantime, if you have any questions or concerns, please do not hesitate to contact me. Sincerely, Samy Tsai M.D., Ph.D. Director, [facility] [place], [place] # SIGNED BY Samy Tsai MD Phd ([facility]) 07/20/2013 11:25AM # REVISED BY Samy Tsai MD Phd ([facility]) 07/20/2013 11:27AM documented in this encounter Plan of Treatment Care Team Description Date Type Specialty Hortencia Stewart, PROCESS ARTIST [address] [address] [phone] 03/31/2020 Office Visit Neurology documented as of this encounter Visit Diagnoses Not on filedocumented in this encounter
--- OUTSIDE RECORDS SUMMARY | 2020-02-11 03:13 | XMS REPORT | Encounter Summary ---
Author Author [facility] Organization [facility] Address Unknown Phone Unavailable Care Team Providers Care Soap Drier Operator Name Role Phone PCP Unavailable Encounter Details Care Team Description Date Type Department Samy Tsai MD [address] [facility] [address] [place] [address] [phone] 07/13/2013 Hist-Visit [facility] Social History Date Tobacco [...] Date Type Specialty Hortencia Stewart, CARRIE [address] [facility] [address] [place] [address] [phone] 03/31/2020 Office Visit Neurology documented as of this encounter Visit Diagnoses Not on filedocumented in this encounter
--- OUTSIDE RECORDS SUMMARY | 2020-02-11 03:13 | XMS REPORT | Encounter Summary ---
Author Author [facility] Organization [facility] Address Unknown Phone Unavailable Care Team Providers Care Shower Room Attendant Name Role Phone EldonFreedom correa PCP Encounter Details Care Team Description Date Type Department Slnc, Historical 07/31/2013 Hist-Visit [facility] Social History Date Tobacco Use Types Packs/Day Years Used Never Assessed Sex Assigned at Date Recorded Not on file Industry Job Start Date Occupation Not on file Not on file Not on file Travel End Travel History Travel Start No recent travel history available. documented as of this encounter Last Filed Vital Signs Reading Time Taken Comments Vital Sign 110/68 07/31/2013 11:48 AM CDT Blood Pressure 84 07/31/2013 11:48 AM CDT Pulse - - Temperature - - Respiratory Rate - - Oxygen Saturation - - Inhaled Oxygen Concentration 88.5 kg (195 lb) 07/31/2013 11:48 AM CDT Weight 157.5 cm (5' 2") 07/31/2013 11:48 AM CDT Height 35.67 07/31/2013 11:48 AM CDT Body Mass Index documented in this encounter Plan of Treatment Care Team Description Date Type Specialty Hortencia Stewart, PROJECT OFFICER [address] [address] [phone] 03/31/2020 Office Visit Neurology documented as of this encounter Visit Diagnoses Not on filedocumented in this encounter
--- OUTSIDE RECORDS SUMMARY | 2020-02-11 03:13 | XMS REPORT | Encounter Summary ---
Author Author [facility] Organization [facility] Address Unknown Phone Unavailable Care Team Providers Care Pig Machine Operator Name Role Phone EldonFreedom correa PCP Encounter Details Care Team Description Date Type Department Slnc, Historical 08/07/2013 Hist[facility]Visit [facility] Social History Date Tobacco Use Types Packs/Day Years Used Never Assessed Sex Assigned at Date Recorded Not on file Industry Job Start Date Occupation Not on file Not on file Not on file Travel End Travel History Travel Start No recent travel history available. documented as of this encounter Last Filed Vital Signs Reading Time Taken Comments Vital Sign 111/64 08/07/2013 3:22 PM CDT Blood Pressure 91 08/07/2013 3:22 PM CDT Pulse - - Temperature - - Respiratory Rate - - Oxygen Saturation - - Inhaled Oxygen Concentration 88.5 kg (195 lb) 08/07/2013 3:22 PM CDT Weight 157.5 cm (5' 2") 08/07/2013 3:22 PM CDT Height 35.67 08/07/2013 3:22 PM CDT Body Mass Index documented in this encounter Plan of Treatment Care Team Description Date Type Specialty Hortencia Stewart, AMMONIUM NITRATE NEUTRALIZER [address] [address] [phone] 03/31/2020 Office Visit Neurology documented as of this encounter Visit Diagnoses Not on filedocumented in this encounter
--- OUTSIDE RECORDS SUMMARY | 2020-02-11 03:13 | XMS REPORT | Encounter Summary ---
Author Author [facility] Organization [facility] Address Unknown Phone Unavailable Care Team Providers Care Gis Geographer Name Role Phone PCP Unavailable Encounter Details Care Team Description Date Type Department Samy Tsai MD [address] [place] [address] [phone] 10/05/2011 Hist-Visit [facility] Social History Date Tobacco Use Types Packs/Day Years Used Never Assessed Sex Assigned at Date Recorded Not on file Industry Job Start Date Occupation Not on file Not on file Not on file Travel End Travel History Travel Start No recent travel history available. documented as of this encounter Progress Notes * Samy Tsai MD - 10/05/2011 4:06 PM ACUTE CARE NURSE PRACTITIONER . : 04:06pm .T: Return Patient [facility] Ness Serra M.D. [address] [facility] Anthony Serra M.D. [address] [place] [address] [place], [place] [address] [place] [address] [place] [address] Velia Ortiz M.D. Minerva Epstein D.O. Wanda Castillo M.D. Dayna Pina M.D. F ax: Earl Staley D.O. Louis Lowe M.D. [facility] Samy Tsai M.D., Ph.D. Rudy Butcher M.D. 10/05/11 Freedom Villarreal DO [address] [place] [address] [place], [place] [id number] RE: Summer Cullen : [address] Villarreal: I had the pleasure today of seeing Summer Cullen in our [facility] for follow-up of her history of refractory epilepsy. As you know, she is a 41-year-old right-handed woman who has had epilepsy since 21 years of age. S he typically has generalized tonic-clonic seizures without an aura but she also has episodes where she will stare. These sound consistent with complex partial seizures but she does not recall any aura with these either. She has been seen at the [facility] in the past and underwent invasive vi nelson EEG monitoring in 1995 or 1996 but they were not able to find a single focus for her epilepsy. Since her first visit with me on January 27, 2011, she underwent repeat video EEG monitoring in February. Four seizures were captured with unclear localization. Most of the seizures were associated with an electro-decremental response. Interictally, independent bitemporal sharp activity was seen but this was more common over the right versus the left temporal region. After discharge from the hospital, she underwent an MRI of the brain with and without contrast enhancement on May 06, 2011. This showed bifrontal encephalomalacia that was worse over the right frontal region with evidence of her previous craniotomy. The encephalomalacia appears to be due to her invasive monitoring in the past. There was no evidence for mesial temporal sclerosis. Neuropsychological testing performed on June 07 showed cognitive changes but no clear lateralized pattern of dysfunction. She has not had a PET scan recently. Since her discharge from the hospital, she continues to have approximately 1 or two seizures per week. Unfortunately, a recent seizure resulted in a fracture o f her left leg. This has occurred in the past as well. She has had a total of 5 fractures of her leg because of her seizures. Past medical history: 1. History of kidney stones on multiple occasions 2. Status post tubal ligation 3. Status post vagal nerve stimulator implantation 4. Depression 5. Migraine headaches Allergies: Doxycycline and Tylenol Medications: 1. Lamictal 200 mg p.o. t.i.d. 2. Topamax 200 mg p.o. t.i.d. 3. A Depo shot 4. Effexor XR 75 mg p.o. once daily 5. Vitamin C with vitamin D 6. Propranolol 60mg p.o. b.i.d. for migraine prophylaxis She has tried Dilantin, Tegretol, Phenobarbital, Depakote, and Keppra in the pas t. She thinks that she may have tried Vimpat but she is not entirely sure. She t hinks that this may have increased her seizure frequency so it was discontinued. She has not tried Zonisamide. Family history: There is no family history of seizures Social history: She lives in [facility] by herself. She smokes approximately [...] had no drift and no asterixis. Her leiclh-xh-owzd, wvry-be-hamr, and rapid alternating movements were intact. Her gait was narrow based and she was w earing a cast on her left leg because of her recent fracture. The majority of th is 25 minute visit was spent counseling the patient regarding her treatment opti ons for the management of her epilepsy. I interrogated and reprogrammed her vagal stimulator. The battery was replaced o n July 07, 2009. The stimulation intensity is 2.0mAmps with a frequency of 30H z and a pulse width of 500 microseconds. The on time is 30 seconds with an off t raven of 3 minutes which I decreased to 1.8 minutes. The magnet current strength is 2.0mAmps with an on time of 60 seconds and a pulse width of 500 microseconds. Systems diagnostics revealed no problems and the battery appeared to be working well with over 80% of battery life remaining. In summary, Summer Cullen is a 41-year-old right-handed woman with refractory l ocalization related epilepsy. Her recent inpatient video EEG monitoring did not clarify her localization. There was an electrodecremental response seen. Overa ll, I suspect that she has a frontal lobe focus. Her EEG shows bilateral abnorm alities and her other testing has not helped guide us in determining a possible focus for her seizures. Therefore at this point, I am not optimistic that she w ould be a suitable candidate forsurgical resection for the treatment of her epil epsy. I reprogrammed her vagal nerve stimulator today to see if this could help decrease her seizure frequency. We did discuss that there is a new anticonvuls ant medication that should be coming to market in the next couple of months. We could try this at her next visit with me. If these options are ineffective, th en there may be some other anticonvulsant medications that we can try that have not been tried in the past. Alternatively, we did discuss the possibility of petit griffing her be seen at the [facility] or the [facility] which have active west rgical programs for the treatment of epilepsy to see if there is anything that jason ortez possibly could do even though I think that this is a long shot. She is in a greement with this plan. I would like to see her back in 3 months to see how eugene schafer is doing. In the meantime, if you have any questions or concerns, please do n ot hesitate to contact me. Sincerely, Samy Tsai M.D., Ph.D. Director, [facility] [place], [place] # SIGNED BY Samy Tsai MD Phd ([facility]) 10/05/2011 04:17PM E CARE NURSE PRACTITIONER documented in this encounter Plan of Treatment Care Team Description Date Type Specialty Hortencia Stewart, OIL WELL SERVICE OPERATOR [address] [place] [address] [phone] 03/31/2020 Office Visit Neurology documented as of this encounter Visit Diagnoses Not on filedocumented in this encounter
--- OUTSIDE RECORDS SUMMARY | 2020-02-11 03:13 | XMS REPORT | Encounter Summary ---
Author Author [facility] Organization [facility] Address Unknown Phone Unavailable Care Team Providers Care Camera Mechanic Name Role Phone Freedom Villarreal PCP Encounter Details Care Team Description Date Type Department Samy Tsai MD [address] [facility] [address] [place] [address] [phone] 02/22/2013 PracPart Note [facility] [address] [place] [address] Social History Date Tobacco Use Types Packs/Day Years Used Never Assessed Sex Assigned at Date Recorded Not on file Industry Job Start Date Occupation Not on file Not on file Not on file Travel End Travel History Travel Start No recent travel history available. documented as of this encounter Progress Notes * Samy Tsai MD - 02/22/2013 11:33 AM CDT . :11:33AM .T:patient call relayed msg to patient-co From: Samy Tsai ([facility]) Originated by: Samy Tsai ([facility]) Sent: 02/22/2013 at 11:33AM To: Margie Dobbins ([place]) Type: CHART Priority: 3 Subject: patient call She should take the Potiga 200 mg tid. Samy León Original Message: From: [place] To: [facility] Subject: patient call Priority: 3 Date: 02/22/2013 Nurse Note: 02/22/13 Providers: : Physician Response: Next Visit: 06/12/13 Reason for Call: This 42 year old female reports by phone that she double checked her medication when she went home yesterday. She has actually been taking 300mg twice daily. Rhoda e wanted to know if you think she should increase further or remain on her curre nt dosage. Please let me know. Thanks-CO Call this patient at Home no 02/21/13 Freedom Villarreal DO [address] [facility] [place] [address] RE: Summer Cullen : [address] Villarreal: I had the pleasure today of seeing Summer Cullen in our [facility] for follow-up of her history of refractory epilepsy of cryptogenic cause. As you know, she is a 42-year-old right-handed woman who has had epilepsy since 21 years of age. She typically has generalized tonic-clonic seizures without an aura but she also has complex partial seizures where she will stare. These s ound consistent with complex partial seizures but she does not recall any aura w ith these either. She has been seen at the [facility] in the past and underwent invasive video EEG monitoring in 1995 or 1996 but they were not able to find a single focus for her epilepsy. She underwent repeat video EEG monitoring in February, Potiga [facility]. F our seizures were captured with unclear localization. Most of the seizures were associated with an electro-decremental response. Interictally, independent bit emporal sharp activity was seen but this was more common over the right versus t he left temporal region. After discharge from the hospital, she underwent an MR I of the brain with and without contrast enhancement on May 06, 2011. This show ed bifrontal encephalomalacia that was worse over the right frontal region with evidence of her previous craniotomy. The encephalomalacia appears to be due to her invasive monitoring in the past. There was no evidence for mesial temporal sclerosis. Neuropsychological testing performed on June 07 showed cognitive enrike nges but no clear lateralized pattern of dysfunction. She has not had a PET sca n recently. During the summer of 2011, she started Potiga and had titrated to a dose of 200 mg p.o. t.i.d. Her seizure frequency continue to be approximately 3 or 4 seizure s per month but she thought that her seizures had become milder. At her last vis it with me on September 13, 2012, I recommended that she try to increase the fatig ue further given that she was tolerating it to see if we could make further impr ovement in her seizures. Today, she reports that her seizures have actually incr eased in frequency to the point that she is now having approximately 2 seizures per week and some of these have resulted in falls and injury but fortunately rel atively mild injuries. She now states that she was not able to tolerate the Poti ga but it is unclear if it was the increase that she was not able to tolerate. S he states that she is now taking 200 mg p.o. b.i.d. which is puzzling given that she was able to tolerate 200 mg p.o. t.i.d. in the past. She is otherwise doing well and reports no new neurological symptoms. Past medical history: 1. [...] p.o. b.i.d. for migraine prophylaxis 7. Potiga 200 mg p.o. b.i.d. She has tried Dilantin, Tegretol, Phenobarbital, Depakote, and Keppra in the pas t. She thinks that she may have tried Vimpat but she is not entirely sure. She t hinks that this may have increased her seizure frequency so it was discontinued. She has not tried Zonisamide. Family history: There is no family history of seizures Social history: She lives in [facility] [place] by herself.She smokes approximately one p ack of cigarettes per day and has been smoking for the past 22 years. She does n ot drink alcohol or use illicit drugs. She is on disability. The patient's vital signs taken today in my office are as follows: Bp: 106/64, Right Arm, Pulse: 88 Height: 5'2", Weight: 189 lbs On examination, she was well-appearing and [...] had no drift and no asterixis. Her nmibtv-vq-kuud, obwv-sz-bvqy, and rapid alternating movements were intact. Her gait was narrow based and she was w earing a cast on her left leg because of her recent fracture. The majority of th is 25 minute visit was spent counseling the patient regarding her treatment opti ons for the management of her epilepsy. I interrogated but did not reprogram her vagal stimulator today. Her settings we re the following: The battery was replaced on July 07, 2009. The stimulation i ntensity is 2.0mAmps with a frequency of 30Hz and a pulse width of 500 microseco nds. The on time is 30 seconds with an off time of 1.1 minutes. The magnet curr ent strength is 2.0mAmps with an on time of 60 seconds and a pulse width of 500 microseconds. Systems diagnostics revealed no problems and the battery appeared to be working well but there is only approximately 10% of battery life remaining . In summary, Summer Cullen is a 42-year-old right-handed woman with refractory l ocalization related [...] seeking a second opinion at [facility] the [facility] or [facility]. Her seizures have increased in frequency since her last visit with me but she is now on a lower dosage of the Potiga than she had been on in the past. She states that she was not able to tolerate it so she decreased it on her own but I am w ondering if she was unable to tolerate the increased dosage and she then lowered it too much rather than lowering it back to her original dosage. I recommended that she increase it to 200 mg p.o. t.i.d. which was the dosage that she was kaur arently taking in the fall which she was tolerating at that time to see if this might make some improvement in her seizures. If she cannot tolerate this dosage then she will continue taking 200 mg p.o. b.i.d. Her vagal nerve stimulator gene rator needs to be replaced given that the battery is near end of service. We mellisa l have her see Dr. Vivar in the near future to have this done. I will see her b ack on the same day to turn the stimulator back on and I would like to see her b ack in 3 months for a regular followup visit to see how things are going and to reassess her options at that point. In the meantime, if you have any questions or concerns, please do not hesitate to contact me. Sincerely, Samy Tsai M.D., Ph.D. Director, [facility] [place], [place] documented in this encounter Plan of Treatment Care Team Description Date Type Specialty Hortencia Stewart, TESTER/LIFT TRUCKER [address] [address] [phone] 03/31/2020 Office Visit Neurology documented as of this encounter Visit Diagnoses Not on filedocumented in this encounter
--- OUTSIDE RECORDS SUMMARY | 2020-02-11 03:13 | XMS REPORT | Encounter Summary ---
Author Author [facility] Organization [facility] Address Unknown Phone Unavailable Care Team Providers Care Entomology Professor Name Role Phone Freedom Villarreal PCP Encounter Details Care Team Description Date Type Department [facility], Historical 02/21/2013 PracPart Note [facility] Social History Date Tobacco Use Types Packs/Day Years Used Never Assessed Sex Assigned at Date Recorded Not on file Industry Job Start Date Occupation Not on file Not on file Not on file Travel End Travel History Travel Start No recent travel history available. documented as of this encounter Progress Notes * [facility], Historical - 02/21/2013 2:27 PM CDT . :02:27PM .T:Message From: Shawnee Osborne (VERNA) Originated by: Shawnee Osborne (VERNA) Sent: 3 at 02:27PM To: Betsy Mina () Type: CHART Priority: 3 Attachment: INVALID LINK:caity cullen router [id number] - [id number]|[id number]\\T:\\ppa rt\\Files\\[id number]\\[id number]\\[id number]\\[id number]\\[id number] \\[id number]\\[id number]\\[id number]\\[id number]\\[id number]\\[id number]\\[id number]\\[id number]\\[id number]\\[id number] \\[id number]\\[id number] Subject: Dr. Tsai needs an appt set up at [facility] for this pt to replace VNS. Thanks! VERNA documented in this encounter Plan of Treatment Care Team Description Date Type Specialty Hortencia Stewart, PRODUCT SAFETY OFFICER [address] [address] [phone] 03/31/2020 Office Visit Neurology documented as of this encounter Visit Diagnoses Not on filedocumented in this encounter"
--- OUTSIDE RECORDS SUMMARY | 2020-02-11 03:13 | XMS REPORT | Encounter Summary ---
Author Author [facility] Organization [facility] Address Unknown Phone Unavailable Care Team Providers Care Metal Bench Patternmaker Name Role Phone Freedom Villarreal PCP Encounter Details Care Team Description Date Type Department [facility], Historical 10/05/2011 PracPart Note [facility] Social History Date Tobacco Use Types Packs/Day Years Used Never Assessed Sex Assigned at Date Recorded Not on file Industry Job Start Date Occupation Not on file Not on file Not on file Travel End Travel History Travel Start No recent travel history available. documented as of this encounter Progress Notes * [facility], Historical - 10/05/2011 2:57 PM URANIUM PROCESSING SUPERVISOR . :02:57PM .T:Message From: RUTHIE FLORES ([place]) Originated by: RUTHIE FLORES ([place]) Sent: 10/05/2011 at 02:57PM To: Samy Tsai ([facility]) RUTHIE FLORES ([place]) Type: CHRTSUM Priority: 3 Subject: Was not scheduled. Ruthie documented in this encounter Plan of Treatment Care Team Description Date Type Specialty Hortencia Stewart, LARGE ENGINE ASSEMBLER [address] [address] [phone] 03/31/2020 Office Visit Neurology documented as of this encounter Visit Diagnoses Not on filedocumented in this encounter
--- OUTSIDE RECORDS SUMMARY | 2020-02-11 03:13 | XMS REPORT | Encounter Summary ---
Author Author [facility] Organization [facility] Address Unknown Phone Unavailable Care Team Providers Care Clear Coat Sprayer Name Role Phone Freedom Villarreal PCP Encounter Details Care Team Description Date Type Department Rudy Butcher MD [address] [facility] [address] [place] [address] [phone] 07/16/2013 PracPart Note [facility] [address] [place] [address] Social History Date Tobacco Use Types Packs/Day Years Used Never Assessed Sex Assigned at Date Recorded Not on file Industry Job Start Date Occupation Not on file Not on file Not on file Travel End Travel History Travel Start No recent travel history available. documented as of this encounter Progress Notes * Rudy Butcher MD - 07/16/2013 2:26 PM CDT . : 02:26pm .T: call from Nurse Nurse from patient's PCP's office called regarding Summer's VNS getting turned o n. I explained that Summer no showed her 07/13/13 appt and transfered her to t o reschedule-co documented in this encounter Plan of Treatment Care Team Description Date Type Specialty Hortencia Stewart, ROAD INSPECTOR [address] [facility] [address] [place] [address] [phone] 03/31/2020 Office Visit Neurology documented as of this encounter Visit Diagnoses Not on filedocumented in this encounter
--- OUTSIDE RECORDS SUMMARY | 2020-02-11 03:13 | XMS REPORT | Encounter Summary ---
Author Author [facility] Organization [facility] Address Unknown Phone Unavailable Care Team Providers Care Medical Assembler Name Role Phone PCP Unavailable Encounter Details Care Team Description Date Type Department Samy Tsai MD [address] [address] [phone] 09/13/2012 Hist-Visit [facility] Social History Date Tobacco Use Types Packs/Day Years Used Never Assessed Sex Assigned at Date Recorded Not on file Industry Job Start Date Occupation Not on file Not on file Not on file Travel End Travel History Travel Start No recent travel history available. documented as of this encounter Progress Notes * Samy Tsai MD - 09/13/2012 11:12 AM CDT . : 11:12am .T: Return Patient [facility] Ness Serra M.D. [address] [facility] Anthony Serra M.D. [facility] [address] [place] [address] [place], [place] [address] [place] [address] [place] [address] Janette Johnston M.D. Velia Ortiz M.D. Darwin Hall M.D. Wanda Castillo M.D. Dayna Pina M.D. F ax: Earl Staley D.O. Louis Lowe M.D. Daysi James, MSN,RN,ANP, [facility] Samy Tsai M.D., Ph.D. Rudy Butcher M.D. Osmani Putnam M.D., Ph.D. 09/13/12 Freedom Villarreal DO [address] [facility] [place] [address] RE: Summer Cullen : [address] [...] either. She has been seen at the [facility] in the past and underwent invasive video EEG monitoring in 1995 or 1996 but they were not able to find a single focus for her epilepsy. She underwent repeat video EEG monitoring in February, [facility]. F our seizures were captured with unclear [...] not had a PET sca n recently. Since her last visit with me on May 17, 2012, she has started Potiga and has ti trated to a dose of 200 mg p.o. t.i.d. She continues to have approximately 3-4 s eizures per month but overall she thinks that her seizures are slightly milder. However, she continues to have seizures that can result in a fall. In the past t hese have resulted in ankle fractures. She is otherwise doing well and reports n o new neurological symptoms. She is tolerating her current regimen without any s ignificant side effects. Past medical history: 1. History [...] for migraine prophylaxis 7. Potiga 200 mg p.o.t.i.d. She has tried Dilantin, Tegretol, Phenobarbital, Depakote, and Keppra in the pas t. She thinks that she may have tried Vimpat but she is not entirely sure. She t hinks that this may have increased her seizure frequency so it was discontinued. She has not tried Zonisamide. Family history: There is no family history of seizures Social history: She lives in [facility] by herself. She smokes approximately [...] had no drift and no asterixis. Her ojhhtr-me-btvb, msoo-on-rpue, and rapid alternating movements were intact. Her gait was narrow based and she was w earing a cast on her left leg because of her recent fracture. The majority of th is 25 minute visit was spent counseling the patient regardingher treatment optio ns for the management of her epilepsy. I [...] working well but there is only approximately 25% of battery life remaining . In summary, [...] seeking a second opinion at either the [facility] or [facility]. Since the Potiga has seemed to have made her seizures milder although they are s till relatively frequent, I recommended that she increase the Potiga further. At this point, I do not think that the Potiga will likely result in seizure freedom but if we can at least improve the severity of her seizures to the point that she is not having seizures that can result in falls and fractures, I think that this would be a significant accomplishment. She will gradually increase the Poti ga to 300 mg p.o. t.i.d. If after that point if she is continuing to have seizur es that result in falls, and if she is tolerating the medication, we could poten tially increase up to 400 mg p.o. t.i.d. which is likely a maximum dose. I would like to see her back in 3 months to see how she is doing. At her next visit with me, I will also interrogate her vagal nerve stimulator again. I suspect that she will need generator replacement in the near future. In the meantime, if you have any questions or concerns, please do not hesitate to contact me. Sincerely, Samy Tsai M.D., Ph.D. Director, [facility] [place], [place] # SIGNED BY Samy Tsai MD Phd ([facility]) 09/13/2012 11:23AM documented in this encounter Plan of Treatment Care Team Description Date Type Specialty Hortencia Stewart, BREAKFAST SUPERVISOR [address] [address] [phone] 03/31/2020 Office Visit Neurology documented as of this encounter Visit Diagnoses Not on filedocumented in this encounter
--- OUTSIDE RECORDS SUMMARY | 2020-02-11 03:13 | XMS REPORT | Encounter Summary ---
Author Author [facility] Organization [facility] Address Unknown Phone Unavailable Care Team Providers Care Master Rigger Name Role Phone PCP Unavailable Encounter Details Care Team Description Date Type Department Samy Tsai MD [address] [address] [phone] 02/21/2013 Hist-Visit [facility] Social History Date Tobacco Use Types Packs/Day Years Used Never Assessed Sex Assigned at Date Recorded Not on file Industry Job Start Date Occupation Not on file Not on file Not on file Travel End Travel History Travel Start No recent travel history available. documented as of this encounter Last Filed Vital Signs Reading Time Taken Comments Vital Sign 106/64 02/21/2013 1:59 PM CDT Blood Pressure 88 02/21/2013 1:59 PM CDT Pulse - - Temperature - - Respiratory Rate - - Oxygen Saturation - - Inhaled Oxygen Concentration 85.7 kg (189 lb) 02/21/2013 1:59 PM CDT Weight 157.5 cm (5' 2") 02/21/2013 1:59 PM CDT Height 34.57 02/21/2013 1:59 PM CDT Body Mass Index documented in this encounter Progress Notes * Samy Tsai MD - 02/21/2013 2:18 PM CDT . : 02:18pm .T: Return Patient [facility] Ness Serra M.D. [address] [facility] Anthony Serra M.D. [address] [place] [address] [place], [place] [address] [place] [address] [place] [address] Janette Johnston M.D. Velia Ortiz M.D. Darwin Hall M.D. Wanda Castillo M.D. Dayna Pina M.D. F ax: Earl Staley D.O. Louis Lowe M.D. Daysi James, MSN,RN,ANP, [facility] Samy Tsai M.D., Ph.D. Rudy Butcher M.D. Osmani Putnam M.D. 02/21/13 Freedom Villarreal DO 202 [place] [address] RE: Summer Cullen : [address] [...] either. She has been seen at the [facility] in the past and underwent invasive video EEG monitoring in 1995 or 1996 but they were not able to find a single focus for her epilepsy. She underwent repeat video EEG monitoring in February, [facility]. F our seizures were captured with unclear [...] 200 mg p.o. b.i.d. She has tried Dilantin,Tegretol, Phenobarbital, Depakote, and Keppra in the past . She thinks that she may have tried Vimpat but she is not entirely sure. She th inks that this may have increased her seizure frequency so it was discontinued. She has not tried Zonisamide. Family history: There is no family history of seizures Social history: She lives in [facility] by herself. She smokes approximately one [...] had no drift and no asterixis. Her fxhwuf-zk-beke, iwhj-xr-umuv, and rapid alternating movements were intact. Her [...] suitable candidate for surgical rese ction for thetreatment of her epilepsy. However, in the past, we have discussed the possibility of her seeking a second opinion at either the [facility] or [facility]. Her seizures have increased in frequency [...] Tsai M.D., Ph.D. Director, [facility] [place], [place] # SIGNED BY Samy Tsai MD Phd ([facility]) 02/21/2013 02:26PM documented in this encounter Plan of Treatment Care Team Description Date Type Specialty Hortencia Stewart, TONGUER [address] [address] [phone] 03/31/2020 Office Visit Neurology documented as of this encounter Visit Diagnoses Not on filedocumented in this encounter
--- OUTSIDE RECORDS SUMMARY | 2020-02-11 03:13 | XMS REPORT | Encounter Summary ---
Author Author [facility] Organization [facility] Address Unknown Phone Unavailable Care Team Providers Care Tree Deadener Name Role Phone PCP Unavailable Encounter Details Care Team Description Date Type Department Samy Tsai MD [address] [address] [phone] 05/17/2012 Hist-Visit [facility] Social History Date Tobacco Use Types Packs/Day Years Used Never Assessed Sex Assigned at Date Recorded Not on file Industry Job Start Date Occupation Not on file Not on file Not on file Travel End Travel History Travel Start No recent travel history available. documented as of this encounter Progress Notes * Samy Tsai MD - 05/17/2012 2:54 PM CDT .D: 12 : 02:54pm .T: Return Patient [facility] Ness Serra M.D. [address] 20 [facility] Anthony Serra M.D. [facility] [address] [place] [address] [place], [place] [address] [place] [address] [place] [address] Velia Ortiz M.D. Minerva Epstein D.O. Wanda Castillo M.D. Dayna Pina M.D. F ax: Earl Staley D.O. Louis Lowe M.D. [facility] Samy Tsai M.D., Ph.D. Rudy Butcher M.D. 05/17/12 Freedom Villarreal DO [address] [place] [address] [place], [place] [address] RE: Summer Cullen : [address] Villarreal: I had the pleasure today of seeing Summer Cullen in our [facility] for follow-up of her history of refractory epilepsy of cryptogenic cause. As you know, she is a 41-year-old right-handed woman who has had epilepsy since 21 years of age. She typically has generalized tonic-clonic seizures without an aura but she also has complex partial seizures where she will stare. These s ound consistent with complex partial seizures but she does not recall any aura w ith these either. She has been seen at the [facility] in the past and underwent invasive video EEG monitoring in 1995 or 1996 but they were not able to find a single focus for her epilepsy. She underwent repeat video EEG monitoring in February, at [facility]. Four seizures were captured with unclear [...] her last visit with me on January 19, 2012, she reports that her seizures have worsened in frequency. Her typical baseline is approximately 2 seizures per month. Unfortunately, with some of her seizures she can fracture her ankle. This happened again recently approximately one month ago. Past medical history: 1. History of kidney [...] of seizures Social history: She lives in [facility] by herself. She smokes approximately one [...] had no drift and no asterixis. Her zhchmc-jx-pray, hpqj-cx-qoxs, and rapid alternating movements were intact. Her gait was narrow based and she was w earing a cast on her left leg because of her recent fracture. The majority of th is 25 minute visit was spent counseling the patient regarding her treatment opti ons for the management of her epilepsy. I did not interrogate or reprogram her vagal stimulator today. In the past, her settings were the following: The battery was replaced on July 07, 2009. The st imulation intensity is 2.0mAmps with a frequency of 30Hz and a pulse width of 50 0 microseconds. The on time is 30 seconds with an off time of 1.1 minutes. The magnet current strength is 2.0mAmps with an on time of 60 seconds and a pulse wi dth of 500 microseconds. Systems diagnostics revealed no problems and the batter y appeared to be working well with less than 50% of battery life remaining. 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 Her inpatient video EEG monit oring in the past did not clarify her localization because there was an electrod ecremental response seen. Overall, I suspect that she has a frontal lobe focus. Her EEG shows bilateral abnormalities and her other testing has not helped radha de in determining a possible focus for her seizures. Therefore at this point , I am not optimistic that she would be a suitable candidate for surgical resect ion for the treatment of her epilepsy. We discussed her options at length. For now we will try a new anticonvulsant medication called Potiga. She will take 100 mg p.o. t.i.d. and will gradually titrate to 200 mg p.o. t.i.d. Hopefully this will make some improvement in her seizures. If not, then we could potentially in crease it further. If this is not effective then there may be some additional ch anges that can be made to her vagal nerve stimulator. Lastly, she could consider being seen seen at the [facility] or the [facility] to consider if she m ight be a candidate for surgical resection although I am not optimistic that she will be a suitable candidate. In the meantime, if you have any questions or co ncerns, please do not hesitate to contact me. Sincerely, Samy Tsai M.D., Ph.D. Director, [facility] [place], [place] # SIGNED BY Samy Tsai MD Phd ([facility]) 05/17/2012 03:01PM # REVISED BY Samy Tsai MD Phd ([facility]) 05/17/2012 03:03PM documented in this encounter Plan of Treatment Care Team Description Date Type Specialty Hortencia Stewart, SLICE PLUG CUTTER OPERATOR HELPER [address] [address] [phone] 03/31/2020 Office Visit Neurology documented as of this encounter Visit Diagnoses Not on filedocumented in this encounter
--- OUTSIDE RECORDS SUMMARY | 2020-02-11 03:13 | XMS REPORT | Encounter Summary ---
Author Author [facility] Organization [facility] Address Unknown Phone Unavailable Care Team Providers Care Player Piano Technician Name Role Phone Freedom Villarreal PCP Encounter Details Care Team Description Date Type Department Rudy Butcher MD [address] [facility] [address] [place] [address] [phone] 07/11/2013 PracPart Note [facility] [address] [place] [address] Social History Date Tobacco Use Types Packs/Day Years Used Never Assessed Sex Assigned at Date Recorded Not on file Industry Job Start Date Occupation Not on file Not on file Not on file Travel End Travel History Travel Start No recent travel history available. documented as of this encounter Progress Notes * Rudy Butcher MD - 07/11/2013 1:22 PM CDT . : 01:22pm .T: patient call Patient called regarding getting her VNS turned on. I transferred her to for further assistance-co documented in this encounter Plan of Treatment Care Team Description Date Type Specialty Hortencia Stewart APRN [address] [facility] [address] [place] [address] [phone] 03/31/2020 Office Visit Neurology documented as of this encounter Visit Diagnoses Not on filedocumented in this encounter
--- OUTSIDE RECORDS SUMMARY | 2020-02-11 03:13 | XMS REPORT | Encounter Summary ---
Author Author [facility] Organization [facility] Address Unknown Phone Unavailable Care Team Providers Care Radon Inspector Name Role Phone Freedom Villarreal PCP Encounter Details Care Team Description Date Type Department [facility], Historical 07/03/2013 PracPart Note [facility] Social History Date Tobacco Use Types Packs/Day Years Used Never Assessed Sex Assigned at Date Recorded Not on file Industry Job Start Date Occupation Not on file Not on file Not on file Travel End Travel History Travel Start No recent travel history available. documented as of this encounter Progress Notes * [facility], Historical - 07/03/2013 12:38 PM CDT . :12:38PM .T:Reminder From: Erasmo Vieira () Originated by: Erasmo Vieira () Sent: 07/03/2013 at 12:38PM To: Samy Tsai ([facility]) Type: CHART Priority: 3 Subject: Reminder Massimo Tsai, This is a reminder Re: VNS needs to be turned on, where would you like for this patient to be added on schedule, please advise thanks SR documented in this encounter Plan of Treatment Care Team Description Date Type Specialty Hortencia Stewart, GREEN MARKETING SPECIALIST [address] [address] [phone] 03/31/2020 Office Visit Neurology documented as of this encounter Visit Diagnoses Not on filedocumented in this encounter
--- OUTSIDE RECORDS SUMMARY | 2020-02-11 03:13 | XMS REPORT | Encounter Summary ---
Author Author [facility] Organization [facility] Address Unknown Phone Unavailable Care Team Providers Care Penciller Name Role Phone Freedom Villarreal PCP Encounter Details Care Team Description Date Type Department Rudy Butcher MD [address] [facility] [address] [place] [address] [phone] 06/14/2013 PracPart Note [facility] [address] [place] [address] Social History Date Tobacco Use Types Packs/Day Years Used Never Assessed Sex Assigned at Date Recorded Not on file Industry Job Start Date Occupation Not on file Not on file Not on file Travel End Travel History Travel Start No recent travel history available. documented as of this encounter Progress Notes * Rudy Butcher MD - 06/14/2013 4:42 PM CDT . :04:42PM .T:Rx Renew Request e-faxed rx for a 30 day supply- patient is tapering off of the medication-co From: Originated by: Sent: 06/14/2013 at 10:48AM To: Prescription, User (RX) Type: RX Priority: 3 Subject: Rx Renew Request A refill request has been received from the [facility] network. ATTENTION: Please compare the details of the prescription in practice partner (b y clicking "Link" button below) to be sure they match the details of the refill request in this message. Patient: Name: MAKENZIESUMMER. Gender: F Date of : 1970 ID Number: [id number] Medication: Medication to be filled: POTIGA 300MG Sig: TAKE ONE TABLET (300MG) BY MOUTH THREE TIMES DAILY Quantity: 270 Tablet Days Supply 90 Total Fills (Rx + Refills): 1 Substitution Status: Substitution not allowed by prescriber (i.e. SERGO) Date of original prescription: 09/13/2012 Date medication last filled: 01/29/2013 Indication(s): (No Data Received) Note: 06/14/2013 10:45:43 AM E-REFILL PT ONLY WANTS A MONTHS SUPPLY Pharmacy: Name: [facility] Pharmacist: Prescriber: Name: VIRGINIE HERRERA Technical Data: (for reference) SearchMe Message ID: [id number] Prescription Reference Number: [id number] Pharmacy NCPDP ID: [id number] documented in this encounter Plan of Treatment Care Team Description Date Type Specialty Hortencia Stewart, BOARDER STEAM [address] [address] [phone] 03/31/2020 Office Visit Neurology documented as of this encounter Visit Diagnoses Not on filedocumented in this encounter
--- OUTSIDE RECORDS SUMMARY | 2020-02-11 03:13 | XMS REPORT | Encounter Summary ---
Author Author [facility] Organization [facility] Address Unknown Phone Unavailable Care Team Providers Care Concert Pianist Name Role Phone Freedom Villarreal PCP Encounter Details Care Team Description Date Type Department [facility] 07/05/2011 PracPart Note [facility] Social History Date Tobacco Use Types Packs/Day Years Used Never Assessed Sex Assigned at Date Recorded Not on file Industry Job Start Date Occupation Not on file Not on file Not on file Travel End Travel History Travel Start No recent travel history available. documented as of this encounter Progress Notes * [facility] - 07/05/2011 8:53 AM CDT . :08:53AM .T:Message From: Summer Gloria () Originated by: Summer Gloria () Sent: 1 at 08:53AM To: Nisha Mosley (GUERDA) Steff Lockett (JR) KARINA FLORES (KD) Malathi Murdock ([place]) Rere Murdock (OB) Camryn Flores (PD) Char Jung (SC) Type: Priority: 3 Subject: rsz pt for tomorrow with JEC has shirley to next himanshu appt 10-05-11. I have put her on the [facility] documented in this encounter Plan of Treatment Care Team Description Date Type Specialty Hortencia Stewart, WRECKING CRANE ENGINE OPERATOR [address] [address] [phone] 03/31/2020 Office Visit Neurology documented as of this encounter Visit Diagnoses Not on filedocumented in this encounter
--- OUTSIDE RECORDS SUMMARY | 2020-02-11 03:13 | XMS REPORT | Encounter Summary ---
Author Author [facility] Organization [facility] Address Unknown Phone Unavailable Care Team Providers Care Performance Manager Name Role Phone PCP Unavailable Encounter Details Care Team Description Date Type Department Samy Tsai MD [address] [facility] [address] [place] [address] [phone] 08/07/2013 Hist-Visit [facility] Social History Date Tobacco Use Types Packs/Day Years Used Never Assessed Sex Assigned at Date Recorded Not on file Industry Job Start Date Occupation Not on file Not on file Not on file Travel End Travel History Travel Start No recent travel history available. documented as of this encounter Progress Notes * Samy Tsai MD - 08/07/2013 3:40 PM CDT . : 03:40pm .T: Return Patient [facility], [facility] [address] [place] [address] [address] [facility] [address] [place] [address] [place] [address] [place] [address] [place] [address] Ness Serra M.D. Anthony Serra M.D. Alem Murphy M.D. Velia Ortiz M.D. Rex Curry M.D. Wanda Castillo M.D. Dayna Pina M.D. Earl Staley D.O. Louis Lowe M.D. Daysi James, MSN,RN,ANP, [facility] Samy Tsai M.D., Ph.D. Rudy Butcher M.D. Osmani Putnam M.D. . 08/07/13 Freedom Villarreal DO [address] [facility] [place], [place] [address] RE: Summer Cullen : [address] [...] either. She has been seen at the [facility] in the past and underwent invasive video EEG monitoring in 1995 or 1996 but they were not able to find a single focus for her epilepsy. She underwent repeat video EEG monitoring in February, at [facility]. Four seizures were captured with unclear [...] her last visit with me on July 31, 2013, she continues to have several seizures per week. She returns today for continued programming of her vagal ner ve stimulator given her recent lead replacement on June 29, 2013. She is tolera ting her current settings without any significant issues. Past medical history: [...] of seizures Social history: She lives in [facility] by herself. She smokes approximately one pack of cigarettes per day and has been smoking for the past 22 years. She does not drink alcohol or use illicit drugs. She is on disability. The patient's vital signs taken today in my office are as follows: Bp: 111/64, Right Arm, Pulse: 91 Height: 5'2", Weight: 195 lbs On examination, [...] had no drift and no asterixis. Her qgiuvu-lr-koas, cftx-dc-beio, and rapid alternating movements were intact. She ambulated with the assistance of a wheelchair because of her recent leg fracture and her right leg was in a cast. I interrogated and reprogrammed her vagal stimulator today. The generator and le ad were replaced on June 29, 2013. The stimulation intensity was 1.50 milliamps which I increased to 1.75 milliamps. Her previous stimulation intensity was 2. 0mAmps. The frequency was 30Hz with a pulse width of 500 microseconds. The on ti me is 30 seconds with an off time of 1.1 minutes. The magnet current strength w as 1.75 mAmps which I increased to 2.0 milliamps with an on time of 60 seconds a nd a pulse width of 500 s. Systems diagnostics revealed no issues and the elijah nicole is working well with 100% service remaining. I did attempt to increase her a ll the way to 2 milliamps but she was unable to tolerate that setting. In summary, Summer Cullen is a 43-year-old [...] seeking a second opinion at either the [facility] or [facility] because even though I think that her odds of being a surgical ca ndidate are relatively remote, she continues to have frequent seizures that can result in fractures of her legs among other injuries. Therefore, the consequence s of her seizures are severe and I think this warrants further investigation in to all of her treatment options. I increased the settings on her vagal nerve stimulator and even attempted to inc rease her all the way to 2 milliamps but she was unable to tolerate that setting . Therefore I will need to see her back in approximately one week to complete th e titration of her vagal nerve stimulator. In the meantime, if you have any que stions or concerns, please do not hesitate to contact me. Sincerely, Samy Tsai M.D., Ph.D. Director, [facility] [place], [place] # SIGNED BY Samy Tsai MD Phd ([facility]) 08/07/2013 03:43PM documented in this encounter Plan of Treatment Care Team Description Date Type Specialty Hortencia Stewart, CHEMICAL ENGINEERING TECHNOLOGIST [address] [address] [phone] 03/31/2020 Office Visit Neurology documented as of this encounter Visit Diagnoses Not on filedocumented in this encounter
--- OUTSIDE RECORDS SUMMARY | 2020-02-11 03:13 | XMS REPORT | Encounter Summary ---
Author Author [facility] Organization [facility] Address Unknown Phone Unavailable Care Team Providers Care Expanding Machine Operator Name Role Phone PCP Unavailable Encounter Details Care Team Description Date Type Department Samy Tsai MD [address] [facility] [address] [place] [address] [phone] 12/20/2012 Hist-Visit [facility] Social History Date [...] Date Type Specialty Hortencia Stewart, CARRIE [address] [facility] [address] [place] [address] [phone] 03/31/2020 Office Visit Neurology documented as of this encounter Visit Diagnoses Not on filedocumented in this encounter
--- OUTSIDE RECORDS SUMMARY | 2020-02-11 03:13 | XMS REPORT | Encounter Summary ---
Author Author [facility] Organization [facility] Address Unknown Phone Unavailable Care Team Providers Care Optical Goods Drilling Machine Operator Name Role Phone PCP Unavailable Encounter Details Care Team Description Date Type Department Samy Tsai MD [address] [facility] [address] [place] [address] [phone] 06/12/2013 Hist-Visit [facility] Social History Date Tobacco Use Types Packs/Day Years Used Never Assessed Sex Assigned at Date Recorded Not on file Industry Job Start Date Occupation Not on file Not on file Not on file Travel End Travel History Travel Start No recent travel history available. documented as of this encounter Progress Notes * Samy Tsai MD - 06/12/2013 3:57 PM CDT . : 03:57pm .T: Return Patient [facility], [facility] [address] [place] [address] [address] [facility] [address] [place] [address] [place] [address] [place] [address] [place] [address] Ness Serra M.D. Anthony Serra M.D. Alem Murphy M.D. Velia Ortiz M.D. Rex Curry M.D. Wanda Castillo M.D. Dayna Pina M.D. Earl Staley D.O. Louis Lowe M.D. Daysi James, MSN,RN,ANP, [facility] Samy Tsai M.D., Ph.D. Rudy Butcher M.D. Osmani Putnam M.D. . 06/12/13 Freedom Villarreal DO [address] [facility] [place] [address] RE: Summer Cullen : [address] [...] either. She has been seen at the [facility] in the past and underwent invasive video EEG monitoring in 1995 or 1996 but they were not able to find a single focus for her epilepsy. She underwent repeat video EEG monitoring in February, at [facility]. Four seizures were captured with [...] a significant improvement in her seizure frequency. She continues to tolerate her current regimen without any significant side effects and there are no new neurological symptoms. Since her last visit with me, she also underwent replacement of the vagal nerve stimulator generator on March 12, 2013. This went well without any complications . Past medical history: 1. History of kidney [...] p.o. b.i.d. for migraine prophylaxis 7. Potiga 300 mg p.o. b.i.d. She has tried Dilantin, [...] of seizures Social history: She lives in [facility] by herself. She smokes approximately one [...] had no drift and no asterixis. Her ntlzyg-ij-enoa, gcjx-sp-cjbh, and rapid alternating movements were intact. Her [...] Her settings we re the following: The generator was replaced on March 12, 2013. The stimulation intensity is 2.0mAmps with a frequency of 30Hz and a pulse width of 500 microsec onds. The on time is 30 seconds with an off time of 1.1 minutes. The magnet cur rent strength is 2.0mAmps with an on time of 60 seconds and a pulse width of 500 microseconds. Systems diagnostics revealed a high lead impedance. The battery a ppeared to be working well with 100% service remaining. In [...] has not helped g uide us in determininga possible focus for her seizures. Therefore at this poin t, I am not optimistic that she would be a suitable candidate for surgical resec tion for the treatment of her epilepsy. However, in the past, we have discussed the possibility of her seeking a second opinion at either the [facility] or [facility] because even though I think that her odds of being a surgical can didate are relatively remote, she continues to have frequent seizures that can r esult in fractures of her legs. Therefore, the consequences of her seizures are severe and I think this warrants a more thorough investigation into all of her treatment options. For now, it does not appear that the Potiga has resulted in any improvement in h er seizure frequency. Therefore I recommended that she gradually taper off of it completely to see if it is helping at all or not. After she has tapered off the Potiga, if it appears that it was not helping her at all, then we could consider adding zonisamide to her regimen. If zonisamide is not effective then I reinfo rced to her again that I think that she should seek a second opinion at the [facility] or [facility]. I am in favor of this approach currently but she is still reluctant to leave town for a second opinion. Lastly, interrogation of her vagal nerve stimulator revealed high lead impedance . This could indicate a disconnected lead, a broken lead, or scar tissue. I will have her return to see Dr. Moreno who recently implanted the generator for eval uation and possible lead replacement depending on what is found. I would like to see her back in 4 months to see how she is doing. In the meantime, if you have any questions or concerns, please do not hesitate to contact me. Sincerely, Samy Tsai M.D., Ph.D. Director, [facility] [place], [place] # SIGNED BY Samy Tsai MD Phd ([facility]) 06/12/2013 04:06PM documented in this encounter Plan of Treatment Care Team Description Date Type Specialty Hortencia Stewart, SAMPLE PASTER [address] [address] [phone] 03/31/2020 Office Visit Neurology documented as of this encounter Visit Diagnoses Not on filedocumented in this encounter
--- OUTSIDE RECORDS SUMMARY | 2020-02-11 03:13 | XMS REPORT | Encounter Summary ---
Author Author [facility] Organization [facility] Address Unknown Phone Unavailable Care Team Providers Care Slp Name Role Phone EldonFreedom correa PCP Encounter Details Care Team Description Date Type Department Slnc, Historical 02/21/2013 Hist[facility]Visit [facility] Social History Date [...] Team Description Date Type Specialty Hortencia Stewart, AIRSET CASTER [address] [address] [phone] 03/31/2020 Office Visit Neurology documented as of this encounter Visit Diagnoses Not on filedocumented in this encounter
--- OUTSIDE RECORDS SUMMARY | 2020-02-11 03:13 | XMS REPORT | Encounter Summary ---
Author Author [facility] Organization [facility] Address Unknown Phone Unavailable Care Team Providers Care Type Cutter Name Role Phone PCP Unavailable Encounter Details Care Team Description Date Type Department Samy Tsai MD [address] [address] [phone] 01/19/2012 Hist-Visit [facility] Social History Date Tobacco Use Types Packs/Day Years Used Never Assessed Sex Assigned at Date Recorded Not on file Industry Job Start Date Occupation Not on file Not on file Not on file Travel End Travel History Travel Start No recent travel history available. documented as of this encounter Progress Notes * Samy Tsai MD - 01/19/2012 2:49 PM HANDHOLE MACHINE OPERATOR .D: 12 : 02:49pm .T: Return Patient [facility] Ness Serra M.D. [address] [facility] Anthony Serra M.D. [address] [place] [address] [place], [place] [address] [place] [address] [place] [address] Velia Ortiz M.D. Minerva Epstein D.O. Wanda Castillo M.D. Dayna Pina M.D. F ax: Earl Staley D.O. Louis L. Chrissy, M.D. [facility] Samy Tsai M.D., Ph.D. Rudy Butcher M.D. 01/19/12 Freedom Villarreal DO [address] [place] [address] [place], [place] [address] RE: Summer Cullen : [address] [...] either. She has been seen at the [facility] in the past and underwent invasive [...] has not had a PET scan recently. At her last visit with me on October 05, 2011, I had adjusted her vagal nerve st imulator. She reports that there has a has not been a significant improvement in her seizure frequency. She continues to have approximately 2 seizures per month. These are primarily staring episodes that she has had a couple of generalized tonic-clonic seizures over the last few months. She is otherwise doing well and reports no other new symptoms. Past medical history: 1. History of [...] of seizures Social history: She lives in [facility] by herself. She smokes approximately one [...] had no drift and no asterixis. Her jcawae-xb-vetu, bjje-zc-axrp, and rapid alternating movements were intact. Her [...] seconds with an off t raven of 1.8 minutes which I decreased to 1.1 minutes. The magnet current strengt h is 2.0mAmps with an on time of 60 seconds and a pulse width of 500 microsecond s. Systems diagnostics revealed no problems and the battery appeared to be worki ng well with less than 50% of battery life remaining. In summary, Summer Cullen is a 41-year-old right-handed woman with refractory l ocalization related epilepsy. Her inpatient video EEG monitoring did not clarify her localization. There was an electrodecremental response seen. Overall, I s uspect that she has a frontal lobe focus. Her EEG shows bilateral abnormalities and her other testing has not helped guide us in determining a possible focus f or her seizures. Therefore at this point, I am not optimistic that she would be a suitable candidate for surgical resection for the treatment of her epilepsy. I reprogrammed her vagal nerve stimulator today to see if this could help decre ase her seizure frequency. She would like to try Potiga which is a new anticonv ulsant medication that should be available in the next few months. Therefore I w ill see her back in approximately 3 or 4 months. If this new anticonvulsant medi cation is available we will give it a try. If this is not effective, then we wou ld need to consider having her be seen at the [facility] or the [facility] to consider if she might be a candidate for surgical resection although again I am not optimistic that she will be a suitable candidate. In the meantime, if you have any questions or concerns, please do not hesitate to contact me. Sincerely, Samy Tsai M.D., Ph.D. Director, [facility] [place], [place] # SIGNED BY Samy Tsai MD Phd ([facility]) 01/19/2012 02:53PM HOLE MACHINE OPERATOR documented in this encounter Plan of Treatment Care Team Description Date Type Specialty Hortencia Stewart, NURSING ASSISTANTS TEACHER [address] [facility] [address] [place] [address] [phone] 03/31/2020 Office Visit Neurology documented as of this encounter Visit Diagnoses Not on filedocumented in this encounter
--- OUTSIDE RECORDS SUMMARY | 2020-02-11 03:14 | XMS REPORT | Encounter Summary ---
Author Author [facility] Organization [facility] Address Unknown Phone Unavailable Care Team Providers Care Archivist Political History Name Role Phone Freedom Villarreal PCP Encounter Details Care Team Description Date Type Department [facility], Historical 01/14/2011 PracPart Note [facility] Social History Date Tobacco Use Types Packs/Day Years Used Never Assessed Sex Assigned at Date Recorded Not on file Industry Job Start Date Occupation Not on file Not on file Not on file Travel End Travel History Travel Start No recent travel history available. documented as of this encounter Progress Notes * [facility], Historical - 01/14/2011 8:35 AM WIND ENERGY TECHNICIAN . : 08:35am PATIENT NAME: Caity Cullen DATE OF : [birth year] AGE: 40 ye ar DATE: 01/14/11 REFERRING PHYSICIAN: Freedom Villarreal REASON FOR VISIT : Changing Neurologist, want a better doctor DRUG ALLERGIES: Aspirin: no Codeine: no Iodine other Dyes: no Penicillin: n o Sulfa : no Other : yes Doxycycline, Tylenol PAST MEDICAL HISTORY: ARTHRITIS: no ANEMIA/BLOOD PROBLEMS: no BLADDER PROBLEMS: no CANCER: no SEIZURES : yes HEART DISEASE: no STOMACH ULCERS/GASTRITIS: no BLACKOUTS: yes HIGH BLOOD PRESSURE: no LIVER PROBLEMS: no THYROID : no LUNG DISEASE: no COLON/IRRITABLE BOWEL : no HEADACHES: no DIABETES MELLITUS: no HIGH LIPIDS OR CHOLESTEROL : no STROKE OR TIA: no KIDNEY PROBLEMS: yes Kidney stones DEPRESSION/ANXIETY/BIPOLAR: no LIST ALL MAJOR SURGERIES, HOSPITALIZATIONS, OR ACCIDENTS: SURGERIES - 2 brain surgieries 1995, 1997, 3 ankle for broken bones 2009, kidney stones laser surgeries around 2009, tubal ligation 1992 CESARIAN SECTION : yes 1989 Review of Systems General Fever no Sweats no Weakness yes Fatigue yes Weight Loss no Pain Average pain most days (lowest) 1 2 3 4 5 6 7 8 9 10 (highest) Where does hurt? Ankle L leg borke it 01/07/11 Staying the same or getting worse? Same Worse What do you take for the pain?Prescribed Codeine Does it help? yes Skin Excessive sun exposure yes Blistering/[place] no Use Sunscreen no Dark Pigmented Skin Lesions no Removed? no Melanoma no Bleeding skin lesion no Skin Cancer no Psoriasis no Chronic Rash no Vitiligo no Laz no Family member with nevus syndrome no Eyes / Ears / Sinuses Loss of vision no Wear Glass yes Cataracts no Glaucoma no Lost hearing no Ringing in your ears no Sinus trouble no Nosebleeds no Mouth / Neck Dental problems no Wear Dentures no Swollen glands no Laryngitis no Hoarseness no Lungs Cough every day no Cough, produce sputum most days no Blood in your sputum no Pneumonia no Bronchitis no Emphysema no Pleurisy no Tuberculosis no Asthma no Short of breath w/ activity no Short of breath at rest no Frequent colds yes Heart / Blood Vessels Chest pain (angina) no Chest pressure no Heart attack no Short of breath at night no Heart murmur no Rapid heartbeat that required treatment no Swollen ankles no Leg cramps at night no Leg cramps when walking no Rheumatic fever no Congenital heart disease no Gastrointestinal Loss appetite no Recent weight change yes Excess saliva no Swallowing Problems no Heartburn no Ulcer no Endoscopy no Nausea Vomiting no Vomiting Blood no Diarrhea no Upset Stomach no Constipation no Black Bowel Movements no Bloody bowel movements no Yellow or jaundiced no Hepatitis no Gall bladder problems no Cirrhosis no Neurological and Spine Back Dominant Right Hand yes Headaches yes Seizure yes Double Vision no Blurred Vision no Weakness in extremity no Numbness no Stroke no Migraine headaches yes Forgetfulness yes Confusion yes Arthritis no Back pain no broken bones yes Swollen joints no Endocrine / Glands Diabetes Mellitus no Thyroid disease no Other endocrine / gland conditions no Input grinder set up operator gear tool jf INVALID LINK:[id number] [id number] [email or web address] documented in this encounter Plan of Treatment Care Team Description Date Type Specialty Hortencia Stewart, FACTORY REPRESENTATIVE [address] [address] [phone] 03/31/2020 Office Visit Neurology documented as of this encounter Visit Diagnoses Not on filedocumented in this encounter
--- OUTSIDE RECORDS SUMMARY | 2020-02-11 03:14 | XMS REPORT | Encounter Summary ---
Author Author [facility] Organization [facility] Address Unknown Phone Unavailable Care Team Providers Care Metal Model Builder Name Role Phone Freedom Villarreal PCP Encounter Details Care Team Description Date Type Department [facility], Historical 04/28/2011 PracPart Note [facility] Social History Date Tobacco Use Types Packs/Day Years Used Never Assessed Sex Assigned at Date Recorded Not on file Industry Job Start Date Occupation Not on file Not on file Not on file Travel End Travel History Travel Start No recent travel history available. documented as of this encounter Progress Notes * [facility], Historical - 04/28/2011 12:25 PM CDT . :12:25PM .T:Message From: RUTHIE FLORES (ZENAIDA) Originated by: RUTHIE FLORES (ZENAIDA) Sent: 04/28/2011 at 12:22PM To: Samy Tsai ([facility]) RUTHIE FLORES (ZENAIDA) Type: CHART Priority: 3 Subject: Patients insurance (Medicare) will not cover Pet Scan. Do you want me to go ahea d and schedule MRI? Please advise. Thanks Ruthie documented in this encounter Plan of Treatment Care Team Description Date Type Specialty Hortencia Stewart, AMBULATORY SERVICES REPRESENTATIVE [address] [address] [phone] 03/31/2020 Office Visit Neurology documented as of this encounter Visit Diagnoses Not on filedocumented in this encounter
--- OUTSIDE RECORDS SUMMARY | 2020-02-11 03:14 | XMS REPORT | Encounter Summary ---
Author Author [facility] Organization [facility] Address Unknown Phone Unavailable Care Team Providers Care Sports Management Intern Name Role Phone Freedom Villarreal PCP Encounter Details Care Team Description Date Type Department Virginie Herrera MD [address] [facility] [address] [place] [address] [phone] 03/16/2011 PracPart Note [facility] Neurol ogy [address] [place] [address] Social History Date Tobacco Use Types Packs/Day Years Used Never Assessed Sex Assigned at Date Recorded Not on file Industry Job Start Date Occupation Not on file Not on file Not on file Travel End Travel History Travel Start No recent travel history available. documented as of this encounter Progress Notes * Virginie Herrera MD - 03/16/2011 12:00 AM CDT . : 00:00am .T: EEG 03/08/11 .PV: SRAVANI Name: SUMMER CULLEN Date of : 1970 Attending Physician: VIRGINIE HERRERA Date of Admission: 03/08/2011 EEG NUMBER: [id number] DATE OF STUDY: 03/16/2011. OBJECT: Evaluate for epilepsy using 19-channel continuous video EEG monitoring. FINDINGS: The background consisted of a normal symmetric posterior predominant alpha frequency rhythm seen symmetrically during wakefulness. There was progression into sleep with normal symmetric sleep morphologies. There were independent bitemporal sharp discharges seen, but these were more prevalent over the right temporal region and seen broadly over the right hemisphere. media monitor showed a regular rhythm throughout. PUSHBUTTON EVENTS: There were no pushbutton events recorded. IMPRESSION: This video EEG telemetry was recorded for almost 16 hours and captured no pushbutton events and no electrographic seizures. There was independent bitemporal epileptiform activity seen as described previously. This was more prominent over the right temporal region, but could indicate 2 distinct possible foci for epileptogenesis. Virginie Herrera MD Dictated By: cc: Ordering Physician: FREEDOM VILLARREAL # SIGNED BY Virginie Herrera MD Phd ([facility]) 03/18/2011 04:26PM documented in this encounter Plan of Treatment Care Team Description Date Type Specialty Hortencia Stewart, [employer] [address] [place] [id number] [phone] 03/31/2020 Office Visit Neurology documented as of this encounter Visit Diagnoses Not on filedocumented in this encounter
--- OUTSIDE RECORDS SUMMARY | 2020-02-11 03:14 | XMS REPORT | Encounter Summary ---
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 documented as of this encounter Plan of Treatment Care Team Description Date Type Specialty Hortencia Stewart APRN [address] [id number] 03/31/2020 Office Visit Neurology documented as of this encounter Procedures Comments Procedure Name Priority Date/Time Associated Diag nosis MRI HEAD W WO CONTRAST Routine 05/06/2011 2:33 PM CDT documented in this encounter Results * MRI Head w wo contrast (05/06/2011 2:33 PM CDT) Specimen Narrative Performed At [facility] Patient: SUBHASHWENDIE GARCIAVinicius Gotti Phone #: Med Rec#: [id number] Sex: F : 1970 Lazara#: [id number] Location: Check-in#: [id number] Procedure Requested: [id number] MRI HEAD W W O CONTRAST Reason For Exam: 345.90 EPILEP NOS W/O INTR EPIL Exam Ordered: 05/06/2011 140 2 Exam Date/Time: 05/06/2011 1503 Check-in Date/Time: 05/06/2011 1402 Attendin VIRGINIE HERRERA Requestin VIRGINIE HERRERA Referrin SAMANTHA, REFERRING Primary Care: [id number] BHARATH HENRIQUEZ "" DO EXAMINATION: Magnetic resonance imaging (MRI) of the brain and brainstem without and with contrast Date: May 06, 2011. History: Seizures. History of prior bra in surgery. Technique: Multiplanar, multi-weighted MRI of the brain and brainstem was performed without and with intraven ous contrast according to the seizure protocol, which includes detail ed imaging of the hippocampi and temporal lobes. Contrast information: Intravenous contrast used: 18 mL Omnisc an. Comparison: None available. Findings: Diffusion weighted images reveal no hyp erintensities to suggest acute cerebral infarction or cavernomas. No e vidence of acute intracranial hemorrhage. The ventricles are normal i n size and position without evidence of hydrocephalus. Bilateral frontal craniotomy with under lying bilateral frontal lobe encephalomalacia, right greater than le ft, with associated gliosis. There is mild dural enhancement in this region, likely secondary to postsurgical changes. Small linear focu s of susceptibility artifact on gradient images the region of the right frontal lobe encephalomalacia likely relates to chronic mineralizatio n/calcification. There is no evidence of heterotopia, va scular malformations, tumors or infarct.The hippocampi are symmetric in size and signal. Mild asymmetric prominence of the temporal horn of the right lateral ventricle, in comparison to the left. On the sagittal images, the scalp and c alvarium are normal. The superior sagittal sinus demonstrates normal veno us flow. The corpus callosum is normal in shape and signal intensity. T he posterior fossa is unremarkable. The pituitary and sella a re normal. The brainstem and craniocervical junction are unremarkabl e. The upper cervical spinal cord and spine are normal. The visualized portions of the orbits, mastoids and paranasal sinuses are unremarkable. Normal flow voids are demonstrated in the carotid arteries and basilar artery. IMPRESSION: 1. No evidence of acute stroke, intracr anial hemorrhage or enhancing mass lesion. 2. Bilateral frontal craniotomy with un derlying bilateral frontal lobe encephalomalacia and associated gliosis , right greater than left. Mild dural enhancement in this region likely relates to to postsurgical changes. 3. No evidence of mesial temporal scler osis. ATTESTATION STATEMENT: The Staff Radiologist has personally re viewed the images and dictated, reviewed, or edited the final report. Signed (Authenticated, Released) Date-T raven: 05/07/2011 1216 Occupational Therapist- LCAIRE GARCIA M.D., Staff Radiologist Dictated By- JATIN OTERO D.O., Resident Staff Physician- CLAIRE Giles, Staff Radiologist Authenticated By- CLAIRE GARCIA M.D., Staff Radiologist Procedure Note Interface, Rad Conversion - 01/26/2014 2:21 PM MANAGER PACU REPORT Patient: RAJIV CULLEN Phone #: Med Rec#: [id number] Sex: F : 1970 Lazara#: [id number] Location: Check-in#: [id number] Procedure Requested: [id number] MRI HEAD W WO CONTRAST Reason For Exam: 345.90 EPILEP NOS W/O INTR EPIL Exam Ordered: 05/06/2011 1402 Exam Date/Time: 05/06/2011 1503 Check-in Date/Time: 05/06/2011 1402 AttendinVIRGINIE CASTILLO Requestin VIRGINIE HERRERA Referrin SAMANTHA, REFERRING Primary Care: [id number] LIZZ HENRIQUEZ "" DO EXAMINATION: Magnetic resonance imaging (MRI) of the brain and brainstem without and with contrast Date: May 06, 2011. History: Seizures. History of prior brain surgery. Technique: Multiplanar, multi-weighted MRI of the brain and brainstem was performed without and with intravenous contrast according to the seizure protocol, which includes detailed imaging of the hippocampi and temporal lobes. Contrast information: Intravenous contrast used: 18 mL Omniscan. Comparison: None available. Findings: Diffusion weighted images reveal no hyperintensities to suggest acute cerebral infarction or cavernomas. No evidence of acute intracranial hemorrhage. The ventricles are normal in size and position without evidence of hydrocephalus. Bilateral frontal craniotomy with underlying bilateral frontal lobe encephalomalacia, right greater than left, with associated gliosis. There is mild dural enhancement in this region, likely secondary to postsurgical changes. Small linear focus of susceptibility artifact on gradient images the region of the right frontal lobe encephalomalacia likely relates to chronic mineralization/calcification. There is no evidence of heterotopia, vascular malformations, tumors or infarct.The hippocampi are symmetric in size and signal. Mild asymmetric prominence of the temporal horn of the right lateral ventricle, in comparison to the left. On the sagittal images, the scalp and calvarium are normal. The superior sagittal sinus demonstrates normal venous flow. The corpus callosum is normal in shape and signal intensity. The posterior fossa is unremarkable. The pituitary and sella are normal. The brainstem and craniocervical junction are unremarkable. The upper cervical spinal cord and spine are normal. The visualized portions of the orbits, mastoids and paranasal sinuses are unremarkable. Normal flow voids are demonstrated in the carotid arteries and basilar artery. IMPRESSION: 1. No evidence of acute stroke, intracra nial hemorrhage or enhancing mass lesion. 2. Bilateral frontal craniotomy with und erlying bilateral frontal lobe encephalomalacia and associated gliosis, right greater than left. Mild dural enhancement in this region likely relates to to postsurgical changes. 3. No evidence of mesial temporal sclero sis. ATTESTATION STATEMENT: The Staff Radiologist has personally reviewed the images and dictated, reviewed, or edited the final report. Signed (Authenticated, Released) Date-Time: 05/07/2011 1216 Occupational Therapist- CLAIRE GARCIA M.D., Staff Radiologist Dictated By- JATIN OTERO D.O., Resident Staff Physician- CLAIRE GARCIA M.D., Staff Radiologist Authenticated By- CLAIRE GARCIA M.D., Staff Radiologist Performing Organization Address City/State[facility] Ph one Teddy JIMÉNEZ documented in this encounter Visit Diagnoses Diagnosis Localization-related (focal) (partial) epilepsy and epileptic syndromes with complex partial seizures, with intractable epilepsy documented in this encounter
--- OUTSIDE RECORDS SUMMARY | 2020-02-11 03:14 | XMS REPORT | Encounter Summary ---
Author Author [facility] Organization [facility] Address Unknown Phone Unavailable Care Team Providers Care Bender Machine Operator Name Role Phone PCP Unavailable Encounter Details Care Team Description Date Type Department Virginie Herrera MD [address] [address] [phone] Localization-related (focal) (partial) e pilepsy and epileptic syndromes with complex partial seizures, with intractable [facility] Social History Date Tobacco Use Types Packs/Day Years Used Never Assessed Sex Assigned at Date Recorded Not on file Industry Job Start Date Occupation Not on file Not on file Not on file Travel End Travel History Travel Start No recent travel history available. documented as of this encounter Discharge Summaries * Virginie Herrera MD - 01/26/2014 2:03 AM MOLECULAR SPECTROSCOPIST REPORT Name: SUMMER CULLEN Date of : 1970 Attending Physician: VIRGINIE HERRERA Date of Admission: 03/08/2011 Date of Discharge: 03/16/2011 DISCHARGE DIAGNOSES: ICD-9 345.41. SECONDARY DIAGNOSES: 1. Lethargy. 2. History of multiple injuries after seizures. PRINCIPAL PROCEDURES PERFORMED: Continuous video EEG telemetry, CPT code 63998, on 03/08/[address] Herrera. HISTORY OF PRESENT ILLNESS: For complete details of the patient's history, please see the H&P dictated for this admission. In summary, Summer Cullen is a 40-year-old right-handed woman with refractory localization related epilepsy. An attempt in the past to try to localize her seizure focus was unsuccessful. She has tried multiple anticonvulsant medications over the years and has a vagal nerve stimulator, but continues to have approximately two seizures per week. At this time her options are relatively limited. We had discussed the possibility of trying Vimpat again to see if this might help her seizures, since in the past it was thought that this had exacerbated her seizure frequency; however, given that this would be very unusual for Vimpat to increase seizure frequency, we think it might be safe for her to try Vimpat again. However, given her seizure frequency and the fact that multiple anticonvulsant medications have also failed, we are not optimistic that Vimpat is going to make a significant difference at this point and reprogramming her vagal nerve stimulator is likely only to result in a modest gain at best. HOSPITAL COURSE: She was admitted electively to undergo repeat inpatient video EEG monitoring to see if we are better able to localize the seizure focus at this time, since it has been over 10 years since she was evaluated for possible surgery in the past and technology has improved. She was monitored with continuous video EEG monitoring throughout her stay. On admission she was taking Lamictal 200 mg p.o. t.i.d. and Topamax 200 mg p.o. t.i.d. and her vagal nerve stimulator had a programmed duty cycle, most recently replaced on July 07, 2009. We tapered her off Lamictal and Topamax and her VNS remained on. We were able to capture four seizures, but per Dr. Herrera's review, the localization of these is unclear, but there is a suggestion for a right frontotemporal focus. The findings of video EEG were discussed with the patient and her family and they wished to pursue further outpatient testing to help determine if the seizure focus can be localized. We also did discuss that the patient would probably need invasive monitoring if she wants to pursue surgical options. The patient now at the time of discharge has had no seizures for greater than 48 hours. She has been back on her full doses of Topamax and Lamictal for greater than 48 hours and is tolerating the restart of these medications without complaints of side effects. DISCHARGE MEDICATIONS: 1. Ambien 10 mg p.o. at bedtime. 2. Calcium 600 mg with vitamin D3 one p.o. q.i.d. 3. Effexor XR 75 mg p.o. daily. 4. Lamictal 200 mg p.o. t.i.d. 5. Topamax 200 mg p.o. t.i.d. 6. Propranolol 60 mg p.o. b.i.d. DIET: As tolerated. ACTIVITY: As tolerated with seizure precautions to include no driving. The patient understands [place] and [place] driving laws and understands she should not drive until she has been seizure free for a period of six months or greater. FOLLOWUP: The patient will schedule a followup appointment with Dr. Herrera in two to three months, as needed sooner, and will call his office for an appointment at [phone]. In the meantime, our office will arrange for a 2T MRI with and without contrast, a PET brain, and neuropsychological testing as an outpatient to see if seizure focus can be further localized. We will also have her make an appointment with her outpatient psychiatrist, Dr. Isacc Christopher, to have a routine epilepsy surgery evaluation. Virginie Herrera MD Dictated By: Hortnecia Stewart APRN-BC cc: Freedom Villarreal DO, [place], [place] CULAR SPECTROSCOPIST documented in this encounter H&P Notes * Virginie Herrera MD - 01/26/2014 2:09 AM MOLECULAR SPECTROSCOPIST REPORT Name: SUMMER CULLEN Date of : 1970 Attending Physician: VIRGINIE HERRERA Date of Admission: 03/08/2011 REASON FOR ADMISSION: Elective video EEG telemetry. HISTORY OF PRESENT ILLNESS: Summer Cullen is a 40-year-old right-handed woman who developed epilepsy at 21 years of age. She typically has generalized tonic/clonic seizures without an aura but she also has episodes where she will stare. These sound consistent with complex partial seizures, but she does not recall any aura with these either. She has been seeing Dr. Leblanc at the [facility] for many years and has been on a number of anticonvulsant medications that have been ineffective. In particular she has tried Dilantin, Tegretol, phenobarbital, Depakote and Keppra. She thinks that she may have recently tried Vimpat she is not entirely sure. She thinks that this may have increased her seizure frequency, so it was discontinued. She has not tried zonisamide. She states that she has undergone invasive video EEG monitoring back in 1995 or and they were unable to find a single focus for seizures. She has never had resective surgery for treatment of her epilepsy. She has recently consulted Dr. Herrera to see if there are any other options for her, given that she continues to have 1 or 2 seizures per week and is not happy with how things are going. Her seizures have also resulted in fractures of her left leg. She most recently fractured her leg in December 2010 and this is the fourth fracture that she has had because of her seizures. REVIEW OF SYSTEMS: Significant for generalized tonic/clonic seizures without aura as noted above, also with staring spells that could represent complex partial seizures. PAST MEDICAL HISTORY: Significant for: 1. Refractory epilepsy as outlined above. 2. History of kidney stones on multiple occasions. 3. Status post tubal ligation. 4. Status post vagal nerve stimulator implantation 07/07/2009. 5. Depression. 6. Migraine headaches. ALLERGIES: DOXYCYCLINE, TYLENOL. CURRENT MEDICATIONS: 1. Lamictal 200 mg p.o. t.i.d. 2. Topamax 200 mg p.o. t.i.d. 3. Depo-Provera shot every 90 days. 4. Effexor-XR 150 mg p.o. daily. 5. Vitamin C with vitamin D. 6. Propanolol 60 mg p.o. b.i.d. for migraine prophylaxis. 7. Ambien 10 mg p.o. at bedtime as needed for insomnia. FAMILY HISTORY: There is no family history of seizures. SOCIAL HISTORY: She lives in [place] by herself. She smokes approximately 1 pack of cigarettes per day and has been smoking for the past 22 years. She does not drink alcohol, or use illicit drugs. She is on disability for refractory epilepsy. PHYSICAL EXAMINATION: She is well appearing and in no acute distress. Temperature is 98.3. Her heart rate is 86 beats. Respiratory rate of 20 breaths per minute and a blood pressure 95/59. Her oxygen saturation is 97% on room air. LUNGS: Her lungs are clear bilaterally. HEART: Demonstrates a regular rate without murmurs. On neurological examination her speech is fluent and articulate. She is able to really good details of her medical history. Her pupils are equally round and reactive to light. Her extraocular movements are full with no nystagmus. Her visual cohen are full to confrontation. Her face moves symmetrically and her facial sensation is intact to light touch and temperature throughout. Her palate elevates symmetrically and her tongue is midline. She has no drift, no asterixis, and has full strength throughout. However, her sensation is intact to light touch and temperature throughout. Her [id number] and rapid alternating movements are intact bilaterally. Her reflexes were 2+ and symmetrical with downgoing toes bilaterally. She has recently gotten a cast off of her left leg and currently ambulates with the assistance of a rolling walker. SUMMARY: 1. In summary, Summer Cullen is a 40-year-old right-handed woman with refractory localization related epilepsy. An attempt in the past to try to localize her seizure focus was unsuccessful. She has tried multiple anticonvulsant medications over the years and has a vagal nerve stimulator, but continues to have approximately 2 seizures per week. At this time her options are relatively limited. We discussed the possibility of trying the Vimpat again to see if this might help her with seizures. Dr. Herrera is suspicious that the Vimpat is not responsible for the exacerbation in her seizure frequency while taking this in the past given that this is quite unusual. Therefor it maybe safe for her to try the Vimpat again but given her seizure frequency and the fact that multiple anticonvulsant medications have failed to render her seizure-free we are not optimistic that Vimpat is going to make a significant difference this point. Alternatively, we could reprogram her vagal nerve stimulator, but this would likely only resulted in a modest improvement in seizure frequency at best. She is now admitted to undergo repeat inpatient video EEG monitoring to see if we are better able to localize her seizure focus since it has been over 10 years that she was evaluated for possible surgery and the technology has improved in that time period. If she is indeed a candidate for surgical resection this would most likely afford her the best opportunity of achieving a significant difference in her seizure frequency. We will continue her Lamictal 200 mg p.o. t.i.d., Topamax p.o. t.i.d. and continue her VNS settings at her current duty cycle and monitor with continuous video EEG telemetry to see if we are able to capture any of her seizures for localization. We will plan to taper her seizure medications to trigger seizures as needed. She will be monitored with full seizure precautions and IV access will be maintained in the event that Ativan needs to be given for seizure rescue. Regarding her, depression, we will continue Effexor-XR 150 mg p.o. once daily. 2. Regarding migraines, headaches, we will continue propranolol 60 mg p.o. b.i.d. 3. We will continue her other home medications regimen. Virginie Herrera MD Dictated By: Hortencia Stewart APRN-BC cc: Addendum: I attest that I saw and examined the patient and agree with the details of the history and exam as described above. Virginie Herrera MD Authenticated and Edited by Virginie Herrera MD On 03/10/11 6:55:39 AM CULAR SPECTROSCOPIST documented in this encounter Procedure Notes * Virginie Herrera MD - 01/26/2014 2:09 AM MOLECULAR SPECTROSCOPIST Associated Order(s): EEG ROUTINE (UP TO 40 MIN) REPORT Name: SUMMER CULLEN Date of : 1970 Attending Physician: VIRGINIE HERRERA Date of Admission: 03/08/2011 DATE OF STUDY: 03/08/2011 EEG #: [id number] OBJECT: Evaluate for epilepsy using 19-channel continuous video EEG monitoring. FINDINGS: The background consisted of a normal symmetric posterior predominant alpha frequency rhythm seen symmetrically during wakefulness. There was progression into sleep with normal symmetric sleep morphologies. Throughout this recording, there were frequent bursts of epileptiform activity seen primarily over the right temporal region typically with phase reversal at the T4 electrode. At times, these could occur in brief bursts that could last up to several seconds. This would be seen in a more widespread fashion over the right hemisphere, but most prominent over the right frontal and temporal regions. At times, this activity seemed to be almost generalized while in a few other occasions, there were sharp discharges seen primarily over the left temporal region. However, these discharges were very frequent and typically were most prominent over the right hemisphere, particularly over the right temporal region. verse writer showed a regular rhythm throughout. Pushbutton events: There was 1 pushbutton event recorded that appeared to be accidental in nature that was not associated with any obvious electrographic abnormalities or clinical behavioral changes. IMPRESSION: This video EEG telemetry was recorded for over 12 hours and captured 1 accidental pushbutton event throughout this recording. However, there was frequent epileptiform activity that was primarily seen most prominently over the right hemisphere, particularly over the right temporal region. However, at times, this activity could be seen in a fairly generalized manner while at other times could be seen independently over the left temporal region, most prominent at the F7 and T3 electrodes. Virginie Herrera MD Dictated By: cc: CULAR SPECTROSCOPIST * Virginie Herrera MD - 01/26/2014 2:08 AM MOLECULAR SPECTROSCOPIST Associated Order(s): EEG ROUTINE (UP TO 40 MIN) REPORT Name: SUMMER CULLEN Date of : 1970 Attending Physician: VIRGINIE HERRERA Date of Admission: 03/08/2011 EEG NO: [id number] DATE OF STUDY: 03/09/2011. OBJECT: Evaluate for epilepsy using 19-channel continuous video EEG monitoring. FINDINGS: The background consisted of a normal symmetric posterior predominant alpha frequency rhythm seen symmetrically during wakefulness. Throughout this recording, as described previously, there was frequent epileptiform activity that could occur in bursts. These bursts could last up to 3 or 4 seconds. The epileptiform activity was most prominent broadly over the right frontal and temporal regions with phase reversal at the T4 electrode, but at other times could be seen in a fairly generalized fashion. There were also occasional independent left temporal sharp discharges seen as well. While the discharges could be seen somewhat generalized on occasion, there was always a right frontotemporal prominence. verse writer showed a regular rhythm throughout. PUSHBUTTON EVENTS: There were 2 pushbutton events recorded that appeared to be accidental in nature while the patient was sleeping. She aroused from sleep and presumably her sitter activated the pushbutton event marker. There was no other clinical behavioral change and there were no electrographic abnormalities associated with the pushbutton event. IMPRESSION: This 24-hour video electroencephalographic telemetry appeared to captured 2 accidental pushbutton events that were not associated with any electrographic abnormalities and no obvious clinical behavioral change. Interictally, there were frequent bursts of epileptiform activity seen most prominently over the right frontal and temporal region, but at times could be seen over the left hemisphere as well, but usually less prominent than that on the right side. On other occasions, left temporal discharges could be seen in an independent fashion. Virginie Herrera MD Dictated By: cc: CULAR SPECTROSCOPIST * Virginie Herrera MD - 01/26/2014 2:07 AM MOLECULAR SPECTROSCOPIST Associated Order(s): EEG ROUTINE (UP TO 40 MIN) REPORT Name: SUMMER CULLEN Date of : 1970 Attending Physician: VIRGINIE HERRERA Date of Admission: 03/08/2011 EEG NUMBER: [id number]. DATE OF STUDY: 03/10/2011. OBJECT: Evaluate for epilepsy using 19-channel continuous video electroencephalogram (EEG) monitoring. FINDINGS: The background consisted of a normal symmetric posterior predominant alpha frequency rhythm seen symmetrically during wakefulness. There was progression into sleep with normal symmetric sleep morphologies. As described previously, there were brief bursts of high-voltage sharp activity seen broadly over the right temporal region. At times, this could also be seen over the left temporal region. In addition, there could be some sharp discharges seen over the left temporal region independently of those seen on the right temporal region. Phase reversal over the right temporal region was at the T4 electrode. Phase reversal over the left temporal region was typically at the T3 electrode. verse writer showed a regular rhythm throughout. PUSHBUTTON EVENTS: There were two pushbutton events recorded. The patient was asleep for both of these and seemed to arouse slightly. Her mother then activated the pushbutton event marker, but there was no clear clinical behavioral seizure activity seen, and there were no obvious electrographic abnormalities identified in proximity to the pushbutton events. IMPRESSION: This 24-hour video electroencephalographic telemetry captured two pushbutton events for arousals from sleep which the mother reported later were not typical for the patient's seizures. Interictally, there were independent bitemporal sharp discharges seen, but this was much more prominent over the right temporal region and was typically seen quite broadly over the right hemisphere. This indicates focal cortical irritability and could represent two distinct possible foci for epileptogenesis. Virginie Herrera MD Dictated By: cc: CULAR SPECTROSCOPIST * Virginie Herrera MD - 01/26/2014 2:06 AM MOLECULAR SPECTROSCOPIST Associated Order(s): EEG ROUTINE (UP TO 40 MIN) REPORT Name: SUMMER CULLEN Date of : 1970 Attending Physician: VIRGINIE HERRERA Date of Admission: 03/08/2011 EEG NUMBER: [id number] DATE OF STUDY: March 11, 2011. OBJECT: Evaluate for epilepsy using 19-channel continuous video EEG monitoring. FINDINGS: The background consisted of a normal symmetric posterior predominant alpha frequency rhythm seen symmetrically during wakefulness. Throughout this recording, as described previously, there were independent bitemporal sharp discharges seen. This activity was much more frequent and prominent over the right frontal temporal region. These discharges were usually seen broadly, but phase reversal was at the F8 or the T4 electrode. These discharges could also occur in brief bursts lasting up to 3 or 4 seconds of epileptiform activity. There was progression into sleep with normal symmetric sleep morphologies. verse writer showed a regular rhythm throughout. PUSHBUTTON EVENTS: There were no pushbutton events recorded. IMPRESSION: This 24-hour video EEG telemetry captured no pushbutton events and no electrographic seizures. There were frequent independent bitemporal sharp discharges seen. These were more common over the right temporal region and could be seen quite broadly. This indicates focal cortical irritability and could represent two distinct foci for epileptogenesis. Virginie Herrera MD Dictated By: cc: CULAR SPECTROSCOPIST * Virginie Herrera MD - 01/26/2014 2:05 AM MOLECULAR SPECTROSCOPIST Associated Order(s): EEG ROUTINE (UP TO 40 MIN) REPORT Name: SUMMER CULLEN Date of : 1970 Attending Physician: VIRGINIE HERRERA Date of Admission: 03/08/2011 EEG NUMBER: [id number] DATE OF STUDY: March 12, 2011. OBJECT: Evaluate for epilepsy using 19-channel continuous video EEG monitoring. FINDINGS: The background consisted of a normal symmetric posterior predominant alpha frequency rhythm seen symmetrically during wakefulness. There was progression into sleep with normal symmetric sleep morphologies. Throughout this recording, as described previously, there were frequent independent bitemporal sharp discharges seen. At times these discharges could occur in bursts that could last up to several seconds without any clear clinical correlation. This activity was more prominent over the right temporal region and was seen broadly over the right hemisphere, but phase reversal typically was at the F8 or T4 electrode. The sharp discharges seen over the left temporal region typically had phase reversal was over the T3 electrode. verse writer showed a regular rhythm throughout. PUSHBUTTON EVENTS: There were no pushbutton events recorded. IMPRESSION: This 24-hour video EEG telemetry captured no pushbutton events and no electrographic seizures. Interictally, there were independent bitemporal sharp discharges seen. This was much more prominent over the right temporal region. These findings indicate focal cortical irritability and could represent 2 distinct foci for epileptogenesis. Virginei Herrera MD Dictated By: cc: CULAR SPECTROSCOPIST * Virginie Herrera MD - 01/26/2014 2:05 AM MOLECULAR SPECTROSCOPIST Associated Order(s): EEG ROUTINE (UP TO 40 MIN) REPORT Name: SUMMER CULLEN Date of : 1970 Attending Physician: VIRGINIE HERRERA Date of Admission: 03/08/2011 EEG NUMBER: [id number] DATE OF STUDY: 03/13/2011. OBJECT: Evaluate for epilepsy using 19-channel continuous video EEG monitoring. FINDINGS: The background consisted of a normal symmetric posterior predominant alpha frequency rhythm seen symmetrically during wakefulness. There was progression into sleep with normal symmetric sleep morphologies. Throughout this recording, as described previously, there were independent bitemporal sharp discharges seen. At times these discharges could occur in bursts that could last up to a couple of seconds. The activity over the right temporal region was more common than that over the left temporal region and was seen quite broadly, but typically seemed to be most prominent over the F8 or T4 electrode. verse writer showed a regular rhythm throughout. PUSHBUTTON EVENTS: There were 3 pushbutton events recorded. One of these appeared to be accidental in nature and was not associated with any clear electrographic or clinical behavioral changes. The first pushbutton event was recorded at approximately 12:01 p.m. The patient was sitting in bed. She then appeared to be somewhat agitated in a very mild fashion and made a couple of grunting sounds and appeared to be somewhat confused. The EEG during this time showed the buildup of high voltage delta slowing that was seen in a fairly generalized fashion, but seemed to be present most prominently over the right frontal region, particularly over the F4 and F8 electrode. The second pushbutton event occurred at approximately 3:36 p.m. The patient was sitting on the edge of her bed and the nurse was helping her trying to get ready to go to the restroom. She suddenly fell backwards and bumped her head on the tray table. This was followed by some mild clonic movements of the arms. She was able to sit up with assistance and there was no significant tonic or clonic activity seen. This activity lasted for approximately one minute and then there was some slowing seen afterward, but this slowing was most prominent over the right anterior quadrant. Right after the patient fell, there was a generalized electrode decremental response that lasted approximately 3 seconds and then the most prominent electrographic changes seemed to be over the right frontal region, but this was already after the patient had fallen. IMPRESSION: This 24-hour video EEG telemetry captured 2 pushbutton events for electrographic seizures that were different in character from each other and are described above. The seizure where the patient appeared to be somewhat confused appeared to have a probable right frontal focus, but the other seizure where the patient had a sudden drop attack was difficult to localize, but the most prominent electrographic changes also seemed to be over the right frontal region. Interictally, there were independent bitemporal sharp discharges seen, but these were most prominent over the right frontal and temporal regions. Virginie Herrera MD Dictated By: cc: CULAR SPECTROSCOPIST * Virginie Herrera MD - 01/26/2014 2:04 AM MOLECULAR SPECTROSCOPIST Associated Order(s): EEG ROUTINE (UP TO 40 MIN) REPORT Name: SUMMER CULLEN Date of : 1970 Attending Physician: VIRGINIE HERRERA Date of Admission: 03/08/2011 EEG NUMBER: [id number]. DATE OF STUDY: March 14, 2011. OBJECT: Evaluate for epilepsy using 19-channel continuous video EEG monitoring. FINDINGS: The background consisted of a normal symmetric posterior predominant alpha frequency rhythm seen symmetrically during wakefulness. There was progression into sleep with normal symmetric sleep morphologies. Throughout this recording, as described previously, there was independent bitemporal sharp activity seen. This was more prominent over the right temporal region. This epileptiform activity could also be seen in a burst that could last up to 3 or 4 seconds with a frequency of approximately 2 to 3 Hz. verse writer showed a regular rhythm throughout. PUSHBUTTON EVENTS: There were 2 pushbutton events recorded. The first pushbutton event occurred at approximately 6:17 a.m. The patient was in bed sleeping. There was a brief burst of polyspike and high voltage sharp activity that lasted less than 1 second followed by a generalized electrode decremental response. At that moment, there was no clear clinical behavioral change. The electrode decremental response lasted approximately 2 seconds and then this was followed by high voltage rhythmic delta frequency slowing seen over both frontal regions, but this was most prominent over the left frontal region. This activity continued for approximately 5 seconds and then this was followed by tonic extension of the patient's arms followed by clonic movements. This activity lasted approximately 40 seconds and there was generalized slowing seen afterward. The second pushbutton event occurred at approximately 10:12 p.m. The patient was sitting in bed and was awake. Again, there was a brief burst of high voltage epileptiform activity that was seen in a fairly generalized fashion, but perhaps more prominent over the left anterior quadrant. This was followed by a brief electrode decremental response lasting approximately 2 seconds and then high voltage delta frequency slowing that was rhythmic was seen primarily over the left frontal and temporal regions. During this activity, the patient seemed to have some slumping of her head forward with the electrode decremental response and then demonstrated tonic extension followed by generalized clonic movements. There was postictal slowing seen. IMPRESSION: This 24-hour video electroencephalographic telemetry captured 2 pushbutton events for generalized tonic-clonic seizures that were preceded by an electrode decremental response. There was no clear focus of onset for either of these seizures based strictly on the electrographic findings. Interictally, there was independent bitemporal sharp activity seen, but this was most prominent over the right temporal region and was seen broadly. Virginie Herrera MD Dictated By: cc: CULAR SPECTROSCOPIST * Virginie Herrera MD - 01/26/2014 2:03 AM MOLECULAR SPECTROSCOPIST Associated Order(s): EEG ROUTINE (UP TO 40 MIN) REPORT Name: SUMMER CULLEN Date of : 1970 Attending Physician: VIRGINIE HERRERA Date of Admission: 03/08/2011 EEG NUMBER: [id number] DATE OF STUDY: March 15, 2011. OBJECT: Evaluate for epilepsy using 19-channel continuous video EEG monitoring. FINDINGS: The background consisted of a normal symmetric posterior predominant alpha frequency rhythm seen symmetrically during wakefulness. There was progression into sleep with normal symmetric sleep morphologies. As described previously, there were independent bitemporal sharp discharges seen. These were more frequent over the right hemisphere, particularly over the right frontal and temporal region. This activity could also occur in brief bursts lasting up to several seconds. verse writer showed a regular rhythm throughout. PUSHBUTTON EVENTS: There were no pushbutton events recorded. IMPRESSION: This 24-hour video EEG telemetry captured no pushbutton events and no electrographic seizures. As described previously, the background shows independent bitemporal sharp discharges seen. This indicates focal cortical irritability and could represent two distinct possible foci for epileptogenesis. Virginie Herrera MD Dictated By: cc: CULAR SPECTROSCOPIST Virginie Jolly MD - 01/26/2014 2:03 AM MOLECULAR SPECTROSCOPIST Associated Order(s): EEG ROUTINE (UP TO 40 MIN) REPORT Name: SUMMER CULLEN Date of : 1970 [...] and seen broadly over the right hemisphere. verse writer showed a regular rhythm throughout. PUSHBUTTON EVENTS: [...] epileptogenesis. Virginie Herrera MD Dictated By: cc: CULAR SPECTROSCOPIST documented in this encounter Plan of Treatment Care Team Description Date Type Specialty Hortencia Stewart, ASSISTANT EDITOR [address] [address] [phone] 03/31/2020 Office Visit Neurology documented as of this encounter Procedures Comments Procedure Name Priority Date/Time Associated Diag nosis EEG ROUTINE (UP TO 40 03/16/2011 MIN) 3:33 PM CDT EEG ROUTINE (UP TO 40 03/16/2011 MIN) 2:07 PM CDT EEG ROUTINE (UP TO 40 03/15/2011 MIN) 2:22 PM CDT EEG ROUTINE (UP TO 40 03/14/2011 MIN) 10:03 AM CDT EEG ROUTINE (UP TO 40 03/13/2011 MIN) 9:36 AM CDT EEG ROUTINE (UP TO 40 03/12/2011 MIN) 2:02 PM CDT EEG ROUTINE (UP TO 40 03/11/2011 MIN) 1:59 PM CDT EEG ROUTINE (UP TO 40 03/10/2011 MIN) 2:18 PM CDT EEG ROUTINE (UP TO 40 03/09/2011 MIN) 2:20 PM CDT documented in this encounter Results * EEG ROUTINE (UP TO 40 MIN) (03/16/2011 3:33 PM CDT) Specimen Transcriptions Virginie Herrera MD - 01/26/2014 2:03 AM MOLECULAR SPECTROSCOPIST REPORT Name: SUMMER CULLEN Date of : 1970 [...] and seen broadly over the right hemisphere. verse writer showed a regular rhythm throughout. PUSHBUTTON EVENTS: There were no pushbutton events recorded. IMPRESSION: This video EEG telemetry was recorded for almost 16 hours and captured no pushbutton events and no electrographic seizures. There was independent bitemporal epileptiform activity seen as described previously. This was more prominent over the right temporal region, but could indicate 2 distinct possible foci for epileptogen esis. Virginie Herrera MD Dictated By: cc: * EEG ROUTINE (UP TO 40 MIN) (03/16/2011 2:07 PM CDT) Specimen Transcriptions Virginie Herrera MD - 01/26/2014 2:03 AM MOLECULAR SPECTROSCOPIST REPORT Name: WENDIE CULLENA Ana María Date of : 1970 Attending Physician: VIRGINIE HERRERA Date of Admission: 03/08/2011 EEG NUMBER: [id number] DATE OF STUDY: March 15, 2011. OBJECT: Evaluate for epilepsy using 19-channel continuous video EEG monitoring. FINDINGS: The background consisted of a normal symmetric posterior predominant alpha frequency rhythm seen symmetrically during wakefulness. There was progression into sleep with normal symmetric sleep morphologies. As described previously, there were independent bitemporal sharp discharges seen. These were more frequent over the right hemisphere, particularly over the right frontal and temporal region. This activity could also occur in brief bursts lasting up to several seconds. verse writer showed a regular rhythm throughout. PUSHBUTTON EVENTS: There were no pushbutton events recorded. IMPRESSION: This 24-hour video EEG telemetry captured no pushbutton events and no electrographic seizures. As described previously, the background shows independent bitemporal sharp discharges seen. This indicates focal cortical irritability and could represent two distinct possible foci for epileptogenesis. Virginie Herrera MD Dictated By: cc: * EEG ROUTINE (UP TO 40 MIN) (03/15/2011 2:22 PM CDT) Specimen Transcriptions Virginie Herrera MD - 01/26/2014 2:04 AM MOLECULAR SPECTROSCOPIST REPORT Name: SUMMER CULLEN Date of : 1970 Attending Physician: VIRGINIE HERRERA Date of Admission: 03/08/2011 EEG NUMBER: [id number]. DATE OF STUDY: March 14, 2011. OBJECT: Evaluate for epilepsy using 19-channel continuous video EEG monitoring. FINDINGS: The background consisted of a normal symmetric posterior predominant alpha frequency rhythm seen symmetrically during wakefulness. There was progression into sleep with normal symmetric sleep morphologies. Throughout this recording, as described previously, there was independent bitemporal sharp activity seen. This was more prominent over the right temporal region. This epileptiform activity could also be seen in a burst that could last up to 3 or 4 seconds with a frequency of approximately 2 to 3 Hz. verse writer showed a regular r hythm throughout. PUSHBUTTON EVENTS: There were 2 pushbutton events recorded. The first pushbutton event occurred at approximately 6:17 a.m. The patient was in bed sleeping. There was a brief burst of polyspike and high voltage sharp activity that lasted less than 1 second followed by a generalized electrode decremental response. At that moment, there was no clear clinical behavioral change. The electrode decremental response lasted approximately 2 seconds and then this was followed by high voltage rhythmic delta frequency slowing seen over both frontal regions, but this was most prominent over the left frontal region. This activity continued for approximately 5 seconds and then this was followed by tonic extension of the patient's arms followed by clonic movements. This activity lasted approximately 40 seconds and there was generalized slowing seen afterward. The second pushbutton event occurred at approximately 10:12 p.m. The patient was sitting in bed and was awake. Again, there was a brief burst of high voltage epileptiform activity that was seen in a fairly generalized fashion, but perhaps more prominent over the left anterior quadrant. This was followed by a brief electrode decremental response lasting approximately 2 seconds and then high voltage delta frequency slowing that was rhythmic was seen primarily over the left frontal and temporal regions. During this activity, the patient seemed to have some slumping of her head forward with the electrode decremental response and then demonstrated tonic extension followed by generalized clonic movements. There was postictal slowing seen. IMPRESSION: This 24-hour video electroencephalographic telemetry captured 2 pushbutton events for generalized lio c-clonic seizures that were preceded by an electrode decremental response. There was no clear focus of onset for either of these seizures based strictly on the electrographic findings. Interictally, there was independent bitemporal sharp activity seen, but this was most prominent over the right temporal region and was seen broadly. Virginie Herrera MD Dictated By: cc: * EEG ROUTINE (UP TO 40 MIN) (03/14/2011 10:03 AM CDT) Specimen Transcriptions Virginie Herrera MD - 01/26/2014 2:05 AM MOLECULAR SPECTROSCOPIST REPORT Name: USMMER CULLEN Date of : 1970 Attending Physician: VIRGINIE HERRERA Date of Admission: 03/08/2011 EEG NUMBER: [id number] DATE OF STUDY: 03/13/2011. OBJECT: Evaluate for epilepsy using 19-channel continuous video EEG monitoring. FINDINGS: The background consisted of a normal symmetric posterior predominant alpha frequency rhythm seen symmetrically during wakefulness. There was progression into sleep with normal symmetric sleep morphologies. Throughout this recording, as described previously, there were independent bitemporal sharp discharges seen. At times these discharges could occur in bursts that could last up to a couple of seconds. The activity over the right temporal region was more common than that over the left temporal region and was seen quite broadly, but typically seemed to be most prominent over the F8 or T4 electrode. verse writer showed a regular rhythm throughout. PUSHBUTTON EVENTS: There were 3 pushbutton events recorded. One of these appeared to be accidental in nature and was not associated with any clear electrographic or clinical behavioral changes. The first pushbutton event was recorded at approximately 12:01 p.m. The patient was sitting in bed. She then appeared to be somewhat agitated in a very mild fashion and made a couple of grunting sounds and appeared to be somewhat confused. The EEG during this time showed the buildup of high voltage delta slowing that was seen in a fairly generalized fashion, but seemed to be present most prominently over the right frontal region, particularly over the F4 and F8 electrode. The second pushbutton event occurred at approximately 3:36 p.m. The patient was sitting on the edge of her bed and the nurse was helping her trying to get ready to go to the restroom. She suddenly fell backwards and bumped her head on the tray table. This was followed by some mild clonic movements of the arms. She was able to sit up with assistance and there was no significant tonic or clonic activity seen. This activity lasted for approximately one minute and then there was some slowing seen afterward, but this slowing was most prominent over the right anterior quadrant. Right after the patient fell, there was a generalized electrode decremental response that lasted approximately 3 seconds and then the most prominent electrographic changes seemed to be over the right frontal region, but this was already after the patient had fallen. IMPRESSION: This 24-hour video EEG telemetry captured 2 pushbutton events for electrographic seizures that were different in character from each other and are described above. The seizure where the patient appeared to be somewhat confused appeared to have a probable right frontal focus, but the other seizure where the patient had a sudden drop attack was difficult to localize, but the most prominent electrographic changes also seemed to be over the right frontal region. Interictally, there were independent bitemporal sharp discharges seen, but these were most prominent over the right frontal and temporal regions. Virginie Herrera MD Dictated By: cc: * EEG ROUTINE (UP TO 40 MIN) (03/13/2011 9:36 AM CDT) Specimen Transcriptions Virginie Herrera MD - 01/26/2014 2:05 AM MOLECULAR SPECTROSCOPIST REPORT Name: SUMMER CULLEN Date of : 1970 Attending Physician: VIRGINIE HERRERA Date of Admission: 03/08/2011 EEG NUMBER: [id number] DATE OF STUDY: March 12, 2011. OBJECT: Evaluate for epilepsy using 19-channel continuous video EEG monitoring. FINDINGS: The background consisted of a normal symmetric posterior predominant alpha frequency rhythm seen symmetrically during wakefulness. There was progression into sleep with normal symmetric sleep morphologies. Throughout this recording, as described previously, there were frequent independent bitemporal sharp discharges seen. At times these discharges could occur in bursts that could last up to several seconds without any clear clinical correlation. This activity was more prominent over the right temporal region and was seen broadly over the right hemisphere, but phase reversal typically was at the F8 or T4 electrode. The sharp discharges seen over the left temporal region typically had phase reversal was over the T3 electrode. verse writer showed a regular rhythm throughout. PUSHBUTTON EVENTS: There were no pushbutton events recorded. IMPRESSION: This 24-hour video EEG telemetry captured no pushbutton events and no electrographic seizures. Interictally, there were independent bitemporal sharp discharges seen. This was much more prominent over the right temporal region. These findings indicate focal cortical irritability and could represent 2 distinct foci for epileptogenesis. Virginie Herrera MD Dictated By: cc: * EEG ROUTINE (UP TO 40 MIN) (03/12/2011 2:02 PM CDT) Specimen Transcriptions Virginie Herrera MD - 01/26/2014 2:06 AM MOLECULAR SPECTROSCOPIST REPORT Name: SUMMER CULLEN Date of : 1970 Attending Physician: VIRGINIE HERRERA Date of Admission: 03/08/2011 EEG NUMBER: [id number] DATE OF STUDY: March 11, 2011. OBJECT: Evaluate for epilepsy using 19-channel continuous video EEG monitoring. FINDINGS: The background consisted of a normal symmetric posterior predominant alpha frequency rhythm seen symmetrically during wakefulness. Throughout this recording, as described previously, there were independent bitemporal sharp discharges seen. This activity was much more frequent and prominent over the right frontal temporal region. These discharges were usually seen broadly, but phase reversal was at the F8 or the T4 electrode. These discharges could also occur in brief bursts lasting up to 3 or 4 seconds of epileptiform activity. There was progression into sleep with normal symmetric sleep morphologies. verse writer showed a regular rhythm throughout. PUSHBUTTON EVENTS: There were no pushbutton events recorded. IMPRESSION: This 24-hour video EEG telemetry captured no pushbutton events and no electrographic seizures. There were frequent independent bitemporal sharp discharges seen. These were more common over the right temporal region and could be seen quite broadly. This indicates focal cortical irritability and could represent two distinct foci for epileptogenesis. Virginie Herrera MD Dictated By: cc: * EEG ROUTINE (UP TO 40 MIN) (03/11/2011 1:59 PM CDT) Specimen Transcriptions Virginie Herrera MD - 01/26/2014 2:07 AM MOLECULAR SPECTROSCOPIST REPORT Name: WENDIE CULLENA Ana María Date of : 1970 Attending Physician: VIRGINIE HERRERA Date of Admission: 03/08/2011 EEG NUMBER: [id number]. DATE OF STUDY: 03/10/2011. OBJECT: Evaluate for epilepsy using 19-channel continuous video electroencephalogram (EEG) monitoring. FINDINGS: The background consisted of a normal symmetric posterior predominant alpha frequency rhythm seen symmetrically during wakefulness. There was progression into sleep with normal symmetric sleep morphologies. As described previously, there were brief bursts of high-voltage sharp activity seen broadly over the right temporal region. At times, this could also be seen over the left temporal region. In addition, there could be some sharp discharges seen over the left temporal region independently of those seen on the right temporal region. Phase reversal over the right temporal region was at the T4 electrode. Phase reversal over the left temporal region was typically at the T3 electrode. verse writer showed a regular rhythm throughout. PUSHBUTTON EVENTS: There were two pushbutton events recorded. The patient was asleep for both of these and seemed to arouse slightly. Her mother then activated the pushbutton event marker, but there was no clear clinical behavioral seizure activity seen, and there were no obvious electrographic abnormalities identified in proximity to the pushbutton events. IMPRESSION: This 24-hour video electroencephalographic telemetry captured two pushbutton events for arousals from sleep which the mother reported later were not typical for the patient's seizures. Interictally, there were independent bitemporal sharp discharges seen, but this was much more prominent over the right temporal region and was typically seen quite broadly over the right hemisphere. This indicates focal cortical irritability and could represent two distinct possible foci for epileptogenesis. Virginie Herrera MD Dictated By: cc: * EEG ROUTINE (UP TO 40 MIN) (03/10/2011 2:18 PM CDT) Specimen Transcriptions Virginie Herrera MD - 01/26/2014 2:08 AM MOLECULAR SPECTROSCOPIST REPORT Name: SUMMER CULLEN Date of : 1970 Attending Physician: VIRGINIE HERRERA Date of Admission: 03/08/2011 EEG NO: [id number] DATE OF STUDY: 03/09/2011. OBJECT: Evaluate for epilepsy using 19-channel continuous video EEG monitoring. FINDINGS: The background consisted of a normal symmetric posterior predominant alpha frequency rhythm seen symmetrically during wakefulness. Throughout this recording, as described previously, there was frequent epileptiform activity that could occur in bursts. These bursts could last up to 3 or 4 seconds. The epileptiform activity was most prominent broadly over the right frontal and temporal regions with phase reversal at the T4 electrode, but at other times could be seen in a fairly generalized fashion. There were also occasional independent left temporal sharp discharges seen as well. While the discharges could be seen somewhat generalized on occasion, there was always a right frontotemporal prominence. verse writer showed a regular rhythm throughout. PUSHBUTTON EVENTS: There were 2 pushbutton events recorded that appeared to be accidental in nature while the patient was sleeping. She aroused from sleep and presumably her sitter activated the pushbutton event marker. There was no other clinical behavioral change and there were no electrographic abnormalities associated with the pushbutton event. IMPRESSION: This 24-hour video electroencephalographic telemetry appeared to captured 2 accidental pushbutton events that were not associated with any electrographic abnormalities and no obvious clinical behavioral change. Interictally, there were frequent bursts of epileptiform activity seen most prominently over the right frontal and temporal region, but at times could be seen over the left hemisphere as well, but usually less prominent than that on the right side. On other occasions, left temporal discharges could be seen in an independent fashion. Virginie Herrera MD Dictated By: cc: * EEG ROUTINE (UP TO 40 MIN) (03/09/2011 2:20 PM CDT) Specimen Transcriptions Virginie Herrera MD - 01/26/2014 2:09 AM MOLECULAR SPECTROSCOPIST REPORT Name: SUMMER CULLEN Date of : 1970 Attending Physician: VIRGINIE HERRERA Date of Admission: 03/08/2011 DATE OF STUDY: 03/08/2011 EEG #: [id number] OBJECT: Evaluate for epilepsy using 19-channel continuous video EEG monitoring. FINDINGS: The background consisted of a normal symmetric posterior predominant alpha frequency rhythm seen symmetrically during wakefulness. There was progression into sleep with normal symmetric sleep morphologies. Throughout this recording, there were frequent bursts of epileptiform activity seen primarily over the right temporal region typically with phase reversal at the T4 electrode. At times, these could occur in brief bursts that could last up to several seconds. This would be seen in a more widespread fashion over the right hemisphere, but most prominent over the right frontal and temporal regions. At times, this activity seemed to be almost generalized while in a few other occasions, there were sharp discharges seen primarily over the left temporal region. However, these discharges were very frequent and typically were most prominent over the right hemisphere, particularly over the right temporal region. verse writer showed a regular rhythm throughout. Pushbutton events: There was 1 pushbutton event recorded that appeared to be accidental in nature that was not associated with any obvious electrographic abnormalities or clinical behavioral changes. IMPRESSION: This video EEG telemetry was recorded for over 12 hours and captured 1 accidental pushbutton event throughout this recording. However, there was frequent epileptiform activity that was primarily seen most prominently over the right hemisphere, particularly over the right temporal region. However, at times, this activity could be seen in a fairly generalized manner while at other times could be seen independently over the left temporal region, most prominent at the F7 and T3 electrodes. Virginie Herrera MD Dictated By: cc: documented in this encounter Visit Diagnoses Diagnosis Localization-related (focal) (partial) epilepsy and epileptic syndromes with complex partial seizures, with intractable epilepsy documented in this encounter
--- OUTSIDE RECORDS SUMMARY | 2020-02-11 03:14 | XMS REPORT | Encounter Summary ---
Author Author [facility] Organization [facility] Address Unknown Phone Unavailable Care Team Providers Care [employer] Teacher Name Role Phone Freedom Villarreal PCP Encounter Details Care Team Description Date Type Department Samy Tsai MD [address] [facility] [address] [place] [address] [phone] 04/28/2011 PracPart Note [facility] ogy [address] [place] [address] Social History Date Tobacco Use Types Packs/Day Years Used Never Assessed Sex Assigned at Date Recorded Not on file Industry Job Start Date Occupation Not on file Not on file Not on file Travel End Travel History Travel Start No recent travel history available. documented as of this encounter Progress Notes * Samy Tsai MD - 04/28/2011 12:30 PM CDT . :12:30PM .T:Message From: Samy Tsai ([facility]) Originated by: Samy Tsai ([facility]) Sent: 04/28/2011 at 12:30PM To: KARINA FLORES) Type: CHART Priority: 3 Subject: Yes, please. Samy León Original Message: From: ZENAIDA To: SURYA Cc: ZENAIDA Subject: Priority: 3 Date: 04/28/2011 Patients insurance (Medicare) will not cover Pet Scan. Do you want me to go ahea d and schedule MRI? Please advise. Mau Hendricks documented in this encounter Plan of Treatment Care Team Description Date Type Specialty Hortencia Stewart, CORPORATE LICENSED BROKER [address] [address] [phone] 03/31/2020 Office Visit Neurology documented as of this encounter Visit Diagnoses Not on filedocumented in this encounter
--- OUTSIDE RECORDS SUMMARY | 2020-02-11 03:14 | XMS REPORT | Encounter Summary ---
Author Author [facility] Organization [facility] Address Unknown Phone Unavailable Care Team Providers Care Prototype Carpenter Name Role Phone Freedom Villarreal PCP Encounter Details Care Team Description Date Type Department Virginie Herrera MD [address] [facility] [address] [place] [address] [phone] 03/11/2011 PracPart Note [facility] Neurol ogy [address] [place] [address] Social History Date Tobacco Use Types Packs/Day Years Used Never Assessed Sex Assigned at Date Recorded Not on file Industry Job Start Date Occupation Not on file Not on file Not on file Travel End Travel History Travel Start No recent travel history available. documented as of this encounter Progress Notes * Virginie Herrera MD - 03/11/2011 12:00 AM CDT . : 00:00am .T: EEG 02/1311 .PV: SRAVANI Name: SUMMER CULLEN Date of [...] region was typically at the T3 electrode. groundwater monitoring technician showed a regular rhythm throughout. PUSHBUTTON EVENTS: [...] # SIGNED BY Virginie Herrera MD Phd ([facility]) 03/18/2011 04:26PM documented in this encounter Plan of Treatment Care Team Description Date Type Specialty Hortencia Stewart, STUDY ABROAD COORDINATOR [address] [address] [phone] 03/31/2020 Office Visit Neurology documented as of this encounter Visit Diagnoses Not on filedocumented in this encounter
--- OUTSIDE RECORDS SUMMARY | 2020-02-11 03:14 | XMS REPORT | Encounter Summary ---
Author Author [facility] Organization [facility] Address Unknown Phone Unavailable Care Team Providers Care Manager Utilization Management Name Role Phone Freedom Villarreal PCP Encounter Details Care Team Description Date Type Department Virginie Herrera MD [address] [facility] [address] [place], [place] [id number] 05/06/2011 PracPart Note [facility] ogy [address] [place] [address] Social History Date Tobacco Use Types Packs/Day Years Used Never Assessed Sex Assigned at Date Recorded Not on file Industry Job Start Date Occupation Not on file Not on file Not on file Travel End Travel History Travel Start No recent travel history available. documented as of this encounter Progress Notes * Virginie Herrera MD - 05/06/2011 2:33 PM CDT . : 2:33pm .T: MRI HEAD W WO CONTRAST .PV: SRAVANI REPORT Patient: SUMMER CULLEN Phone #: Med Rec#: [id number] Sex: F : 1970 Lazara#: [id number] Location: Check-in#: [id number] Procedure Requested: 80391 MRI HEAD W WO CONTRAST Reason For Exam: 345.90 EPILEP NOS W/O INTR EPIL Exam Ordered: 05/06/2011 1402 Exam Date/Time: 05/06/2011 1503 Check-in Date/Time: 05/06/2011 1402 Attendin VIRGINIE HERRERA Requestin VIRGINIE HERRERA Referrin NO, REFERRING DR Primary Care: [id number] KARLENEMARINAFREEDOM "" DO EXAMINATION: Magnetic resonance imaging (MRI) of the brain and brainstem without and with contrast Date: May 06, 2011. History: Seizures. History of prior brain surgery. Technique: Multiplanar, multi-weighted MRI of the brain and brainstem was performed without and with intravenous contrast according to the seizure protocol, which includes detailed imaging of the hippocampi and temporal lobes. Contrast information|\\ Intravenous contrast used: 18 mL Omniscan. Comparison: [...] in the carotid arteries and basilar artery. IMPRESSION|\\ 1. No evidence of acute stroke, intracranial hemorrhage or enhancing mass lesion. 2. Bilateral frontal craniotomy with underlying bilateral frontal lobe encephalomalacia and associated gliosis, right greater than left. Mild dural enhancement in this region likely relates to to postsurgical changes. 3. No evidence of mesial temporal sclerosis. ATTESTATION STATEMENT|\\ The Staff Radiologist has personally reviewed the images and dictated, reviewed, or edited the final report. Signed (Authenticated, Released) Date-Time: 05/07/2011 1217 Geographic Information Systems Engineer- CLAIRE GARCIA M.D., Staff Radiologist Dictated By- JATIN OTERO D.O., Resident Staff Physician- CLAIRE GARCIA M.D., Staff Radiologist Authenticated By- CLAIRE GARCIA M.D., Staff Radiologist -- RELEASED BY [id number] Accession Number: [id number] Ordering Physician: VIRGINIE HERRERA # SIGNED BY Virginie Herrera MD Phd ([facility]) 05/10/2011 08:37AM documented in this encounter Plan of Treatment Care Team Description Date Type Specialty Hortencia Stewart, LOCOMOTIVE CRANE OPERATOR [address] [place] [address] [phone] 03/31/2020 Office Visit Neurology documented as of this encounter Visit Diagnoses Not on filedocumented in this encounter
--- OUTSIDE RECORDS SUMMARY | 2020-02-11 03:14 | XMS REPORT | Encounter Summary ---
Author Author [facility] Organization [facility] Address Unknown Phone Unavailable Care Team Providers Care Cereal Miller Name Role Phone PCP Unavailable Encounter Details Care Team Description Date Type Department Samy Tsai MD [address] [address] [phone] 01/27/2011 Hist-Visit [facility] Social History Date Tobacco Use Types Packs/Day Years Used Never Assessed Sex Assigned at Date Recorded Not on file Industry Job Start Date Occupation Not on file Not on file Not on file Travel End Travel History Travel Start No recent travel history available. documented as of this encounter Progress Notes * Samy Tsai MD - 01/27/2011 7:17 AM AERIAL LINEMAN . : 07:17am .T: New Patient .PV:[facility] [place] Ness Serra M.D. [address] 20 [facility] Anthony Serra M.D. [address] [place] [address] [place], [place] [address] [place] [address] [place] [address] Velia Ortiz M.D. Minerva Epstein D.O. Wanda Castillo M.D. Dayna Pina M.D. F ax: Earl Staley D.O. Louis L. Chrissy, M.D. [facility] Samy Tsai M.D., Ph.D. Rudy Butcher M.D. . 01/27/11 Freedom Villarreal DO [address] [place] [address] [place], [place] [address] RE: Summer Cullen : [address] Villarreal: Thank you for requesting me to see your patient, Summer Cullen, in our [facility] for consultation regarding her history of refractory epile psy. As you know, she is a 40-year-old right-handed woman who developed epilepsy since 21 years of age. She typically has generalized tonic clonic seizures with out an aura but she also has episodes where she will stare. These sound consiste nt with complex partial seizures but she does not recall any aura with these eit her. She has been seeing Dr. Westbrook at the [facility] f or many years and has been on a number of anticonvulsant medications that have b een ineffective. In particular, she has tried Dilantin, Tegretol, Phenobarbital, Depakote, and Keppra. She thinks that she may have recently tried Vimpat but she is not entirely sure. She thinks that this may have increased her seizure freq uency so it was discontinued. She has not tried Zonisamide. She states that she has undergone invasive video EEG monitoring back in 1995 or 1996 and they were n ot able to find a single focus for seizures so she has never had resective surge ry for treatment of her epilepsy. She is here to see if there are any other opti ons for her given that she continues to have one or two seizures per week and is not happy with how things are going. Her seizures have also resulted in fractur es of her left leg. She most recently fractured her leg three weeks ago and this is the fourth fracture that she has had because of her seizures. Her review of systems is per patient questionnaire placed in the office chart wh shannan I reviewed. She has had MRIs and EEGs performed in the past but she is not s ure of the results. Past medical history: 1. History of kidney stones on multiple occasions 2. Status post tubal ligation 3. Status post vagal nerve stimulator implantation 4. Depression 5. Migraine headaches Allergies: Doxycycline and Tylenol Medications: 1. Lamictal 200mg p.o. t.i.d. 2. Topamax 200mg p.o. t.i.d. 3. A Depo shot 4. Effexor XR 150mg p.o. once daily 5. Vitamin C with vitamin D 6. Propranolol 60mg p.o. b.i.d. for migraine prophylaxis Family history: There is no family history of seizures Social history: She lives in [facility] by herself. She smokes approximately one pack of cigarettes per day and has been smoking for the past 22 years. She does not drink alcohol or use illicit drugs. She is on disability. On examination, she was well appearing and in no acute distress. Her blood press ure was 102/62 with a pulse of 84 beats per minute. Her respiratory rate was 18 breaths per minute. Her lungs were clear bilaterally and her heart demonstrated a regular rhythm without murmurs. On neurological examination, her speech was fl uent and articulate. She was able to relate good details of her medical history. Her pupils were equal round and reactive to light and her extraocular movements were full with no nystagmus. Her visual butcher were full to confrontation. Her face moved symmetrically and her facial sensation was intact to light touch and temperature. Her palate elevated symmetrically and her tongue was midline. She h ad no drift and no asterixis and had full strength throughout. However, strength cannot be fully tested in the left leg because she had a cast superior to the k nee all the way covering her ankle. This was because of the recent leg fracture three weeks ago due to a seizure. Her sensation was intact to light touch and te mperature throughout. Her zarnay-sz-aqdv and rapid alternating movements were in tact bilaterally. Her reflexes were 2+ and symmetrical with downgoing toes on th e right. She had a cast on the left leg so reflexes could not be tested there. S he ambulated with the assistance of a wheelchair because of her recent broken le g. I interrogated but did not reprogram her vagal stimulator. The battery was repla alo on July 07, 2009. The stimulation intensity is 2.0mAmps with a frequency o f 30Hz and a pulse width of 500 microseconds. The on time is 30 seconds with an off time of 3 minutes. The magnet current strength is 2.0mAmps with an on time o f 60 seconds and a pulse width of 500 microseconds. Systems diagnostics revealed no problems and the battery appeared to be working well. In summary, Summer Cullen is a 40-year-old right-handed woman with refractory l ocalization related epilepsy. An attempt in the past to try to localize her seiz ure focus was unsuccessful. She has tried multiple anticonvulsant medications ov er the years and has a vagal nerve stimulator but continues to have approximatel y two seizures per week. At this time, her options are relatively limited. We di scussed the possibility of trying the Vimpat again to see if this might help wit h her seizures. Im a little suspicious that the Vimpat exacerbated her seizur e frequency in the past given that this is quite unusual. Therefore I think it m ight be safe for her to try the Vimpat again but given her seizure frequency and the fact that multiple anticonvulsant medications have failed, I am not very op timistic that Vimpat is going to make a significant difference at this point. Al ternatively, I could reprogram her vagal nerve stimulator but I think that this would also only result in a modest gain at best. The other option we discussed i s having her undergo repeat inpatient video EEG monitoring to see we are able to better localize a seizure focus at this time. It has been over 10 years since s he was evaluated for possible surgery in the past and the technology has improve d so it may be possible that we can identify a focus now when this was not able to be done in the past. She is in favor of this approach so we will plan on an a dmission for inpatient video EEG monitoring to see if we can try to localize her seizure focus to determine if she might be a candidate for surgical resection. If she is a candidate for surgical resection then this would most likely afford her the best opportunity of achieving a significant difference in her seizure fr equency. However, while technology has improved, I still think that this is roxanne g to be a relative long shot but I still think that it is probably her best opti on at this time. We will help her schedule the admission for the near future and I will make further recommendations during her hospitalization and subsequent to the information that we gather. Thank you again for allowing me the opportunity to participate in Summer Cullen s neurological care and please do not hesitate to contact me if you have any questions or concerns. Sincerely, Samy Tsai M.D., Ph.D. Director, Comprehensive Epilepsy Program [facility]:po # SIGNED BY Samy Tsai MD Phd ([facility]) 01/28/2011 09:57AM AL LINEMAN documented in this encounter Plan of Treatment Care Team Description Date Type Specialty Hortencia Stewart, FUR SCRAPER [address] [place] [address] [phone] 03/31/2020 Office Visit Neurology documented as of this encounter Visit Diagnoses Not on filedocumented in this encounter
--- OUTSIDE RECORDS SUMMARY | 2020-02-11 03:14 | XMS REPORT | Encounter Summary ---
Author Author [facility] Organization [facility] Address Unknown Phone Unavailable Care Team Providers Care House Calls Nurse Practitioner Name Role Phone Freedom Villarreal PCP Encounter Details Care Team Description Date Type Department Virginie Herrera MD [address] [facility] [address] [place] [address] [phone] 03/15/2011 PracPart Note [facility] Neurol ogy [address] [place] [address] Social History Date Tobacco Use Types Packs/Day Years Used Never Assessed Sex Assigned at Date Recorded Not on file Industry Job Start Date Occupation Not on file Not on file Not on file Travel End Travel History Travel Start No recent travel history available. documented as of this encounter Progress Notes * Virginie Herrera MD - 03/15/2011 12:00 AM CDT . : 00:00am .T: [...] frequency of approximately 2 to 3 Hz. classroom monitor showed a regular rhythm throughout. PUSHBUTTON [...] regions. During this activity, the patient seemed tohave some slumping of her head forward with [...] broadly. Virginie Herrera MD Dictated By: cc: Ordering Physician: FREEDOM VILLARREAL # SIGNED BY Virginie Herrera MD Phd ([facility]) 03/18/2011 04:26PM documented in this encounter Plan of Treatment Care Team Description Date Type Specialty Hortencia Stewart, HUMANITIES COORDINATOR [address] [address] [phone] 03/31/2020 Office Visit Neurology documented as of this encounter Visit Diagnoses Not on filedocumented in this encounter
--- OUTSIDE RECORDS SUMMARY | 2020-02-11 03:14 | XMS REPORT | Encounter Summary ---
Author Author [facility] Organization [facility] Address Unknown Phone Unavailable Care Team Providers Care Automotive Repair Technician Name Role Phone Freedom Villarreal PCP Encounter Details Care Team Description Date Type Department [facility], Historical 01/27/2011 PracPart Note [facility] Social History Date Tobacco Use Types Packs/Day Years Used Never Assessed Sex Assigned at Date Recorded Not on file Industry Job Start Date Occupation Not on file Not on file Not on file Travel End Travel History Travel Start No recent travel history available. documented as of this encounter Progress Notes * [facility], [facility] - 01/27/2011 10:43 AM SENIOR STAFF ACCOUNTANT . :10:43AM .T:Message From: Gretchen Dominguez (DONNA) Originated by: Gretchen Dominguez (DONNA) Sent: 011 at 10:43AM To: KARINA FLORES (ZENAIDA) Type: CHART Priority: 3 Subject: Please schedule this pt for a 5-7 day VEEG in February Thanks donna documented in this encounter Plan of Treatment Care Team Description Date Type Specialty Hortencia Stewart, UNBUNDLER [address] [facility] [address] [place] [address] [phone] 03/31/2020 Office Visit Neurology documented as of this encounter Visit Diagnoses Not on filedocumented in this encounter
--- OUTSIDE RECORDS SUMMARY | 2020-02-11 03:14 | XMS REPORT | Encounter Summary ---
Author Author [facility] Organization [facility] Address Unknown Phone Unavailable Care Team Providers Care Bread Supervisor Name Role Phone Freedom Villarreal PCP Encounter Details Care Team Description Date Type Department Virginie Herrera MD [address] [facility] [address] [place] [address] [phone] 03/14/2011 PracPart Note [facility] Neurol ogy [address] [place] [address] Social History Date Tobacco Use Types Packs/Day Years Used Never Assessed Sex Assigned at Date Recorded Not on file Industry Job Start Date Occupation Not on file Not on file Not on file Travel End Travel History Travel Start No recent travel history available. documented as of this encounter Progress Notes * Virginie Herrera MD - 03/14/2011 12:00 AM CDT . : 00:00am .T: EEG 03/13/11 .PV: SRAVANI Name: SUMMER CULLEN Date of [...] prominent over the F8 or T4 electrode. engine monitor showed a regular rhythm throughout. PUSHBUTTON [...] regions. Virginie Herrera MD Dictated By: cc: Ordering Physician: FREEDOM VILLARREAL # SIGNED BY Virginie Herrera MD Phd ([facility]) 03/18/2011 04:26PM documented in this encounter Plan of Treatment Care Team Description Date Type Specialty Hortencia Stewart, WIND TURBINE MECHANIC [address] [address] [phone] 03/31/2020 Office Visit Neurology documented as of this encounter Visit Diagnoses Not on filedocumented in this encounter
--- OUTSIDE RECORDS SUMMARY | 2020-02-11 03:14 | XMS REPORT | Encounter Summary ---
Author Author [facility] Organization [facility] Address Unknown Phone Unavailable Care Team Providers Care Med Aide Name Role Phone Freedom Villarreal PCP Encounter Details Care Team Description Date Type Department Virginie Herrera MD [address] [facility] [address] [place] [address] [phone] 03/10/2011 PracPart Note [facility] Neurol ogy [address] [place] [address] Social History Date Tobacco Use Types Packs/Day Years Used Never Assessed Sex Assigned at Date Recorded Not on file Industry Job Start Date Occupation Not on file Not on file Not on file Travel End Travel History Travel Start No recent travel history available. documented as of this encounter Progress Notes * Virginie Herrera MD - 03/10/2011 12:00 AM CDT . : 00:00am .T: EEG 03/09/11 .PV: SRAVANI Name: SUMMER CULLEN Date of [...] there was always a right frontotemporal prominence. monitoring analyst showed a regular rhythm throughout. PUSHBUTTON EVENTS: [...] fashion. Virginie Herrera MD Dictated By: cc: Ordering Physician: FREEDOM VILLARREAL # SIGNED BY Virginie Herrera MD Phd ([facility]) 03/12/2011 01:31PM documented in this encounter Plan of Treatment Care Team Description Date Type Specialty Hortencia Stewart, SANDER SETTER [address] [address] [phone] 03/31/2020 Office Visit Neurology documented as of this encounter Visit Diagnoses Not on filedocumented in this encounter
--- OUTSIDE RECORDS SUMMARY | 2020-02-11 03:14 | XMS REPORT | Encounter Summary ---
Author Author [facility] Organization [facility] Address Unknown Phone Unavailable Care Team Providers Care Investigator Vice Name Role Phone Freedom Villarreal PCP Encounter Details Care Team Description Date Type Department [facility], Historical 03/25/2011 PracPart Note [facility] Social History Date Tobacco Use Types Packs/Day Years Used Never Assessed Sex Assigned at Date Recorded Not on file Industry Job Start Date Occupation Not on file Not on file Not on file Travel End Travel History Travel Start No recent travel history available. documented as of this encounter Progress Notes * [facility], Historical - 03/25/2011 9:12 AM CDT . :09:12AM .T:Pre-surgical Workup From: RUTHIE FLORSE (ZENAIDA) Originated by: RUTHIE FLORES (ZENAIDA) Sent: 03/25/2011 at 09:12AM To: Samy Tsai ([facility]) RUTHIE FLORES (ZENAIDA) Type: CHART Priority: 3 Subject: Pre-surgical Workup Please enter orders for, PET SCAN , 2T MRI and Neuropsych EVal. I will contact p atient regarding Dr. Christopher. Thanks Ruthie documented in this encounter Plan of Treatment Care Team Description Date Type Specialty Hortencia Stewart, INSIDE SALES ACCOUNT EXECUTIVE [address] [address] [phone] 03/31/2020 Office Visit Neurology documented as of this encounter Visit Diagnoses Not on filedocumented in this encounter
--- OUTSIDE RECORDS SUMMARY | 2020-02-11 03:14 | XMS REPORT | Encounter Summary ---
Author Author [facility] Organization [facility] Address Unknown Phone Unavailable Care Team Providers Care Drivematic Machine Operator Name Role Phone Freedom Villarreal PCP Encounter Details Care Team Description Date Type Department Virginie Herrera MD [address] [facility] [address] [place] [address] [phone] 03/13/2011 PracPart Note [facility] Neurol ogy [address] [place] [address] Social History Date Tobacco Use Types Packs/Day Years Used Never Assessed Sex Assigned at Date Recorded Not on file Industry Job Start Date Occupation Not on file Not on file Not on file Travel End Travel History Travel Start No recent travel history available. documented as of this encounter Progress Notes * Virginie Herrera MD - 03/13/2011 12:00 AM CDT . : 00:00am .T: EEG 03/12/11 .PV: SRAVANI Name: SUMMER CULLEN Date of [...] phase reversal was over the T3 electrode. policy value calculator showed a regular rhythm throughout. PUSHBUTTON EVENTS: [...] # SIGNED BY Virginie Herrera MD Phd ([facility]) 03/18/2011 04:26PM documented in this encounter Plan of Treatment Care Team Description Date Type Specialty Hortencia Stewart, CLOTH FINISHING RANGE OPERATOR CHIEF [address] [place] [address] [phone] 03/31/2020 Office Visit Neurology documented as of this encounter Visit Diagnoses Not on filedocumented in this encounter
--- OUTSIDE RECORDS SUMMARY | 2020-02-11 03:14 | XMS REPORT | Encounter Summary ---
Author Author [facility] Organization [facility] Address Unknown Phone Unavailable Care Team Providers Care Matte Cutter Name Role Phone Freedom Villarreal PCP Encounter Details Care Team Description Date Type Department [facility], Historical 04/09/2011 PracPart Note [facility] Social History Date Tobacco Use Types Packs/Day Years Used Never Assessed Sex Assigned at Date Recorded Not on file Industry Job Start Date Occupation Not on file Not on file Not on file Travel End Travel History Travel Start No recent travel history available. documented as of this encounter Progress Notes * [facility], Historical - 04/09/2011 2:58 PM CDT . :02:58PM .T:Message From: RUTHIE FLORES (ZENAIDA) Originated by: RUTHIE FLORES (ZENAIDA) Sent: 04/09/2011 at 02:57PM To: Samy Tsai ([facility]) RUTHIE FLORES (ZENAIDA) Type: CHART Priority: 3 Subject: Received call from patient asking what the next step is after inpatient veeg mon itoring 03/08/11. Patient states she had a bad seizure and broke her leg 1. Follow up visit 07/06/11, please advise. Thanks Ruthie patient number [phone] documented in this encounter Plan of Treatment Care Team Description Date Type Specialty Hortencia Stewart, PIPE FITTER GAS PIPE [address] [address] [phone] 03/31/2020 Office Visit Neurology documented as of this encounter Visit Diagnoses Not on filedocumented in this encounter
--- OUTSIDE RECORDS SUMMARY | 2020-02-11 03:14 | XMS REPORT | Encounter Summary ---
Author Author [facility] Organization [facility] Address Unknown Phone Unavailable Care Team Providers Care Steam Plant Operator Name Role Phone Freedom Villarreal PCP Encounter Details Care Team Description Date Type Department Virginie Herrera MD [address] [facility] [address] [place] [address] [phone] 03/16/2011 PracPart Note [facility] Neurol ogy [address] [place] [address] Social History Date Tobacco Use Types Packs/Day [...] AM CDT . : 00:00am .T: EEG 03/15/11 .PV: SRAVANI Name: SUMMER CULLEN Date of [...] brief bursts lasting up to several seconds. satellite project site monitor showed a regular rhythm throughout. PUSHBUTTON EVENTS: There were no pushbutton events recorded. IMPRESSION: This 24-hour video EEG telemetry captured no pushbutton events and no electrographic seizures. As described previously, the background shows independentbitemporal sharp discharges seen. This indicates focal cortical irritability and could represent two distinct possible foci for epileptogenesis. Virginie Herrera MD Dictated By: cc: Ordering Physician: FREEDOM VILLARREAL # SIGNED BY Virginie Herrera MD Phd ([facility]) 03/18/2011 04:26PM documented in this encounter Plan of Treatment Care Team Description Date Type Specialty Hortencia Stewart, MAIL CARRIERS SUPERVISOR [facility] [address] [address] [phone] 03/31/2020 Office Visit Neurology documented as of this encounter Visit Diagnoses Not on filedocumented in this encounter
--- OUTSIDE RECORDS SUMMARY | 2020-02-11 03:14 | XMS REPORT | Encounter Summary ---
Author Author [facility] Organization [facility] Address Unknown Phone Unavailable Care Team Providers Care Gill Box Operator Name Role Phone Freedom Villarreal PCP Encounter Details Care Team Description Date Type Department Samy Tsai MD [address] [facility] [address] [place] [address] [phone] 04/13/2011 PracPart Note [facility] Neurol ogy [address] [place] [address] Social History Date Tobacco Use Types Packs/Day Years Used Never Assessed Sex Assigned at Date Recorded Not on file Industry Job Start Date Occupation Not on file Not on file Not on file Travel End Travel History Travel Start No recent travel history available. documented as of this encounter Progress Notes * Samy Tsai MD - 04/13/2011 8:38 AM CDT . :08:38AM .T:Message From: Samy Tsai ([facility]) Originated by: Samy Tsai ([facility]) Sent: 04/13/2011 at 08:38AM To: RUTHIE FLORES) Type: CHART Priority: 3 Subject: I have put orders in the computer previously for MRI, PET and Neuropsych testing so we should try to get these scheduled before her f/u visit in June. Samy León Original Message: From: ZENAIDA To: SRAVANI Cc: ZENAIDA Subject: Priority: 3 Date: 04/09/2011 Received call from patient asking what the next step is after inpatient veeg mon itoring 03/08/11. Patient states she had a bad seizure and broke her leg 1. Follow up visit 07/06/11, please advise. Thanks Ruthie patient number [phone] documented in this encounter Plan of Treatment Care Team Description Date Type Specialty Hortencia Stewart, DEHYDROGENATION OPERATOR HEAD [address] [address] [phone] 03/31/2020 Office Visit Neurology documented as of this encounter Visit Diagnoses Not on filedocumented in this encounter
--- OUTSIDE RECORDS SUMMARY | 2020-02-11 03:14 | XMS REPORT | Encounter Summary ---
Author Author [facility] Organization [facility] Address Unknown Phone Unavailable Care Team Providers Care Programming Instructor Name Role Phone Freedom Villarreal PCP Encounter Details Care Team Description Date Type Department Virginie Herrera MD [address] [facility] [address] [place] [address] [phone] 03/12/2011 PracPart Note [facility] Neurol ogy [address] [place] [address] Social History Date Tobacco Use Types Packs/Day Years Used Never Assessed Sex Assigned at Date Recorded Not on file Industry Job Start Date Occupation Not on file Not on file Not on file Travel End Travel History Travel Start No recent travel history available. documented as of this encounter Progress Notes * Virginie Herrera MD - 03/12/2011 12:00 AM CDT . : 00:00am .T: EEG 03/11/11 .PV: SRAVANI Name: SUMMER CULLEN Date of [...] into sleep with normal symmetric sleep morphologies. it quality assurance analyst showed a regular rhythm throughout. PUSHBUTTON EVENTS: There were no pushbutton events recorded. IMPRESSION: This 24-hour videoEEG telemetry captured no pushbutton events and no electrographic seizures. There were frequent independent bitemporal sharp discharges seen. These were more common over the right temporal region and could be seen quite broadly. This indicates focal cortical irritability and could represent two distinct foci for epileptogenesis. Virginie Herrera MD Dictated By: cc: Ordering Physician: FREEDOM VILLARREAL # SIGNED BY Virginie Herrera MD Phd ([facility]) 03/18/2011 04:26PM documented in this encounter Plan of Treatment Care Team Description Date Type Specialty Hortencia Stewart, OFFSET MACHINE OPERATOR [facility] [address] [address] [phone] 03/31/2020 Office Visit Neurology documented as of this encounter Visit Diagnoses Not on filedocumented in this encounter
--- OUTSIDE RECORDS SUMMARY | 2020-02-11 03:14 | XMS REPORT | Encounter Summary ---
Author Author [facility] Address Unknown Phone Unavailable Care Team Providers Care Truck Driver Salesperson Name Role Phone Freedom Villarreal PCP Encounter Details Care Team Description Date Type Department Virginie Herrera MD [address] [facility] [address] [place] [address] [phone] 03/09/2011 PracPart Note [facility] Neurol ogy [address] [place] [address] Social History Date Tobacco Use Types Packs/Day Years Used Never Assessed Sex Assigned at Date Recorded Not on file Industry Job Start Date Occupation Not on file Not on file Not on file Travel End Travel History Travel Start No recent travel history available. documented as of this encounter Progress Notes * Virginie Herrera MD - 03/09/2011 12:00 AM CDT . : 00:00am .T: [...] hemisphere, particularly over the right temporal region. school bus monitor showed a regular rhythm throughout. Pushbutton events: [...] electrodes. Virginie Herrera MD Dictated By: cc: Ordering Physician: FREEDOM VILLARREAL # SIGNED BY Virginie Herrera MD Phd ([facility]) 03/12/2011 12:18PM documented in this encounter Plan of Treatment Care Team Description Date Type Specialty Hortencia Stewart, PLATE GRINDER [address] [address] [phone] 03/31/2020 Office Visit Neurology documented as of this encounter Visit Diagnoses Not on filedocumented in this encounter
--- OUTSIDE RECORDS SUMMARY | 2020-02-11 03:15 | XMS REPORT ---
Author Author [facility] Organization [facility] Address [address] [address] Care Team Providers Care Cushion Padder Name Role Phone LIZZ HENRIQUEZ Unavailable RAGHAV SCIENTIFIC PROGRAMMER ANALYST, DANA E Unavailable Unavailable RAGHAV, DANA E SCIENTIFIC PROGRAMMER ANALYST Unavailable Unavailable RAGHAV, DANA E SCIENTIFIC PROGRAMMER ANALYST Unavailable Unavailable DENIA WOODS Unavailable Unavailable PCP, NONE Unavailable Unavailable RADHA GUILLAUME MD Unavailable Unavailable Allergies No Information Medications No Information Problems Active Problems Problem Normalized Date of Normalized Normalized Provider Fac ility Classification Problem(s) Problem Problem Problem Sta tus Onset/Resoluti Duration on Other upper Allergic 01-08-2020 - Chronic Active DANA [facility] Via respiratory rhinitis, CARRIE AVILEZ disease (7 unspecified Hospital - sources.) [place] ([address]) Pleurisy; Atelectasis 01-08-2020 - Episodic Active DANA [facility] Via pneumothorax; [facility] pulmonary Hospital - collapse (16 [place] sources.) ([address]) Chronic Bronchitis, 01-08-2020 - Episodic Active DANA [facility] Via obstructive not specified [facility] AV[facility]Z pulmonary as acute or Hospital - disease and chronic [place] bronchiectasis ([address]) (21 sources.) Chronic Bronchitis, no information Active DANA Not A vailable obstructive not specified RAGHAV (83339) pulmonary as acute or disease and chronic bronchiectasis Translations: (7 sources.) [ CHRONIC OBSTRUCTIVE PULMONARY DISEASE, U, BRONCHITIS, NOT SPECIFIED ACUTE OR CH, BRONCHITIS, NOT SPECIFIED ACUTE OR CH] Calculus of Calculus of 01-08-2020 - Episodic Active RADHA [place]ART[place]Z [place] , [facility] Via urinary tract kidney with MD [facility] (21 sources.) calculus of Hospital - ureter [place] Translations: ([address]) [ URINARY CALCULUS, UNSPECIFIED, CALCULUS OF KIDNEY, CALCULUS OF KIDNEY] Chronic Chronic 01-08-2020 - Chronic Active DANA [facility] Via obstructive obstructive [facility] AV[facility]Z pulmonary pulmonary Hospital - disease and disease, [place] bronchiectasis unspecified (10787) (25 sources.) Other lower Dyspnea, 01-08-2020 - Episodic Active DANA [facility] Via respiratory unspecified [facility] disease (9 Hospital - sources.) [place] ([address]) Immunizations Encounter for 01-08-2020 - Episodic Active RADHA GUILLAUME [facility] Via and screening screening for MD Burnett for infectious other Hospital - disease (7 bacterial [place] sources.) diseases ([address]39) Epilepsy; Epilepsy, 01-08-2020 - Chronic Active DANA No t Available convulsions unspecified, RAGHAV (53833) (24 sources.) not intractable, without status epilepticus Residual Hypersomnia, 01-08-2020 - Chronic Active DANA [facility] Via codes; unspecified [facility] AV[facility] unclassified Hospital - (12 sources.) [place] ([address]) Residual Insomnia, 01-08-2020 - Episodic Active DANA [facility] Via codes; unspecified [facility] AVILEZ unclassified Hospital - (7 sources.) [place] ([address]) Substance-rela Nicotine 01-08-2020 - Chronic Active DANA [facility] Via monie disorders dependence, [facility]E AV[facility] (16 sources.) unspecified, Hospital - uncomplicated [place] ([address]) Residual Obstructive 01-08-2020 - Chronic Active DANA [facility] Via codes; sleep apnea [facility] unclassified (adult) Hospital - (15 sources.) (pediatric) [place] ([address]) NEGATED Obstructive no information Active DANA Not A vailable no sleep apnea RAGHAV (99952) information (8 (adult) sources.) (pediatric) Translations: [ HYPERSOMNIA, UNSPECIFIED] Other Osteophyte, 01-08-2020 - Episodic Active DENIA WOODS [facility] Via non-traumatic left knee [facility] joint Hospital - disorders (7 [place] sources.) ([address]) Other lower Other 01-08-2020 - Episodic Active DANA [facility] Via respiratory nonspecific CARRIE AVILEZ disease (7 abnormal Hospital - sources.) finding of [place] lung field ([address]) Residual Other 01-08-2020 - Episodic Active DEMARCO VELÁZQUEZ Via codes; specified SOFI Burnett unclassified postprocedural Hospital - (13 sources.) states [place] ([address]) Other Pain in right 01-08-2020 - Episodic Active DENIA TOM [facility] Via non-traumatic ankle and Hortencia joint joints of Hospital - disorders (7 right foot [place] sources.) ([address]) Other Pain in right 01-08-2020 - Episodic Active DENIA TOM [facility] Via connective lower leg Hortencia tissue disease Hospital - (7 sources.) [place] ([address]) Residual Parasomnia, 01-08-2020 - Chronic Active DANA V [facility] Via codes; unspecified CARRIE AVILEZ [place] unclassified Translations: Hospital - (25 sources.) [ HYPERSOMNIA, [place] UNSPECIFIED, (13568) INSOMNIA, UNSPECIFIED, SLEEP DISORDER, UNSPECIFIED] Other injuries Personal 01-08-2020 - Episodic Active DENIA KNIGHT [facility] Via and conditions history of Hortencai due to (healed) Hospital - external traumatic [place] causes (7 fracture (76209) sources.) Pneumonia Pneumonia, 01-08-2020 - Episodic Active DANA [facility] Via (except that unspecified CARRIE AVILEZ [place] caused by organism Hospital - tuberculosis Translations: [place] or sexually [ LOBAR (12154) transmitted PNEUMONIA, disease) (18 UNSPECIFIED sources.) ORGANISM] Other Presence of 01-08-2020 - Chronic Active DENIA WOODS [facility] Via connective other bone and Hortencia tissue disease tendon Hospital - (7 sources.) implants [place] ([address]) Osteoarthritis Unilateral 01-08-2020 - Chronic Active DENIA WOODS [facility] Via (13 sources.) primary TIN CAN LABORER [facility] osteoarthritis [facility] - , left knee [place] ([address]) Past or Other Problems Problem Normalized Date of Normalized Normalized Provider Fac ili Classification Problem(s) Problem Problem Problem Sta tus Onset/Resoluti Duration on Residual Hypersomnia, no information no information DANA Not Available codes; unspecified RAGHAV (75089) unclassified (1 source.) Unclassified Sleep Episodic Completed DANA Not Availa ble (4 sources.) disorder, RAGHAV (07981) unspecified Procedures No Information Immunizations No Information Results No Information Vital Signs The data below is from unstructured sourcesNo vital sign information available. Interventions No Information Plan of Treatment The data below is from unstructured sources Discharge Date 09/17/17 6:24am Prescriptions See Medication Section Goals No Information Social History No Information Functional Status The data below is from unstructured sourcesNo functional status information available. Mental Status No Information Encounters Encounter Normalized Encounter Encounter Diagnosis Care Provi carson Organization Date Type NEGATED Patient encounter no information no name (no phone) no organization name 07-05-2018 (no phone) 07-03-2018 Patient encounter no information no name (no phone) no organization name (no phone) 05-09-2018 Patient encounter no information no name (no phone) no organization name (no phone) NEGATED Patient encounter no information no name (no phone) no organization name 01-25-2018 (no phone) - 01-26-2018 01-16-2018 Patient encounter no information no name (no phone) no organization name (no phone) 10-26-2017 Patient encounter no information no name (no phone) no organization name (no phone) NEGATED Patient encounter no information no name (no phone) no organization name 10-25-2017 (no phone) 03-31-2016 Patient encounter no information no name (no phone) no organization name (no phone) 03-24-2016 Patient encounter no information no name (no phone) no organization name - (no phone) 03-24-2016 03-22-2016 Patient encounter no information no name (no phone) no organization name - (no phone) 03-22-2016 03-22-2016 Patient encounter no information no name (no phone) no organization name (no phone) 10-28-2019 Patient encounter no information no name (no phone) no organization name procedure (no phone) 09-03-2019 Patient encounter no information DENIA Dugan [facility] Via [place] procedure (no phone) [facility] (no phone) 08-27-2019 Patient encounter no information DENIA DARNELL P [facility] Via [place] procedure (no phone) [facility] (no phone) 05-29-2019 Patient encounter no information no name (no phone) no organization name procedure (no phone) 05-29-2019 Patient encounter no information DENIA DARNELL P [facility] Via [place] procedure (no phone) [facility] (no phone) 04-18-2019 Patient encounter no information no name (no phone) no organization name procedure (no phone) 04-18-2019 Patient encounter no information DANA AVILEZ [facility] Via [place] procedure SCIENTIFIC PROGRAMMER ANALYST (no phone) [facility] (no phone) 01-09-2019 Patient encounter no information no name (no phone) no organization name procedure (no phone) 01-09-2019 Patient encounter no information DANA E RAGHAV [facility] Via [place] procedure SCIENTIFIC PROGRAMMER ANALYST (no phone) [facility] (no phone) 07-05-2018 Patient encounter no information DANA E RAGHAV [facility] Via [place] procedure SCIENTIFIC PROGRAMMER ANALYST (no phone) [facility] (no phone) 07-03-2018 Patient encounter no information DANA E RAGHAV [facility] Via [place] procedure SCIENTIFIC PROGRAMMER ANALYST (no phone) [facility] (no phone) 05-09-2018 Patient encounter no information DANA E RAGHAV [facility] Via [place] procedure SCIENTIFIC PROGRAMMER ANALYST (no phone) [facility] (no phone) 01-25-2018 Patient encounter no information DANA E RAGHAV [facility] Via [place] - procedure SCIENTIFIC PROGRAMMER ANALYST (no phone) [facility] 01-26-2018 (no phone) 01-16-2018 Patient encounter no information RADHA GUILLAUME MD ( no [facility] Via [place] procedure phone) [facility] (no phone) 10-25-2017 Patient encounter no information DANA E RAGHAV [facility] Via [place] procedure SCIENTIFIC PROGRAMMER ANALYST (no phone) [facility] (no phone) 09-16-2017 Patient encounter no information DANA E RAGHAV [facility] Via [place] - procedure SCIENTIFIC PROGRAMMER ANALYST (no phone) [facility] 09-17-2017 (no phone) 09-14-2017 Patient encounter no information DANA E RAGHAV [facility] Via [place] procedure SCIENTIFIC PROGRAMMER ANALYST (no phone) [facility] (no phone) 09-08-2017 Patient encounter no information DANA E RAGHAV [facility] Via [place] procedure SCIENTIFIC PROGRAMMER ANALYST (no phone) [facility] (no phone) 03-31-2016 Patient encounter no information RADHA GUILLAUME MD ( no [facility] Via [place] procedure phone) [facility] (no phone) 03-24-2016 Patient encounter no information RADHA GUILLAUME MD ( no [facility] Via [place] - procedure phone) [facility] 03-24-2016 (no phone) 03-22-2016 Patient encounter no information RADHA GUILLAUME MD ( no [facility] Via [place] - procedure phone) [facility] 03-22-2016 (no phone) 03-22-2016 Patient encounter no information RADHA GUILLAUME MD ( no [facility] Via [place] procedure phone) [facility] (no phone) 01-08-2020 no information Encounter for no name (no phone) no organization name preprocedural (no phone) laboratory examination no information Encounter for no name (no phone) no organiza tion name preprocedural (no phone) laboratory examination Medical Equipment No Information Payers No Information Advance Directives Directive Response Recor ded Date/Time Advance Directives No 6:38am Health Care Power of Software Test Analyst No 03/24/16 6:38am Organ Donor No 03/24/16 6:38am Discharge Instructions No hospital discharge instruction information available. Additional Source Comments This clinical document has been generated using [employer] software that has been certified by the Office of the National Coordinator for Health Information Technology (ONC 15.99.04.3023.Diam.31.00.0.799731) and the National Committee for [employer] Plantation Worker (NCQA, as an eMeasure certified technology). FOR RECORDS PERTAINING TO PATIENTS WHO ARE OR HAVE BEEN ENROLLED IN A CHEMICAL D EPENDENCY/SUBSTANCE ABUSE PROGRAM, SOME INFORMATION MAY BE OMITTED. This clinica l summary was aggregated from multiple sources. Caution should be exercised in using it in the provision of clinical care. This summary normalizes information from multiple sources, and as a consequence, information in this document may ma terially change the coding, format and clinical context of patient data. In yony tion, data may be omitted in some cases. CLINICAL DECISIONS SHOULD BE BASED ON T HE PRIMARY CLINICAL RECORDS. [employer] provides no warranty or guara ntee of the accuracy or completeness of information in this document.The followi ng information is based on time limited clinical information
--- OUTSIDE RECORDS SUMMARY | 2020-02-11 03:15 | XMS REPORT | Encounter Summary ---
Author Author [facility] Organization [facility] Address Unknown Phone Unavailable Care Team Providers Care Counter Dish Carrier Name Role Phone Freedom Villarreal PCP Encounter Details Care Team Description Date Type Department [facility], Historical 01/14/2011 PracPart Note [facility] Social History Date Tobacco Use Types Packs/Day Years Used Never Assessed Sex Assigned at Date Recorded Not on file Industry Job Start Date Occupation Not on file Not on file Not on file Travel End Travel History Travel Start No recent travel history available. 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 : 08:41am Hypertension: no Hyperlipidemia: yes Father, Mother Coronary heart disease: yes Father's side & Mother's side Diabetes mellitus: yes Uncle, Father Migraines: yes Self, Mother, some cousins CVD / Stroke: yes Uncle, Aunt Alcoholism: yes Dad Epilepsy: yes Self Mental illness: no Other: yes Rheumatoid arthritis - Mother's side Cancer - Grandma, Aunt Alzheimers - Grandpa, Step grandpa documented in this encounter Plan of Treatment Care Team Description Date Type Specialty Hortencia Stewart, ROLL FORM OPERATOR [address] [address] [phone] 03/31/2020 Office Visit Neurology documented as of this encounter Visit Diagnoses Not on filedocumented in this encounter
--- OUTSIDE RECORDS SUMMARY | 2020-02-11 03:15 | XMS REPORT | Encounter Summary ---
Author Author [facility] Organization [facility] Address Unknown Phone Unavailable Care Team Providers Care Cable Worker Helper Name Role Phone Freedom Villarreal PCP Encounter Details Care Team Description Date Type Department [facility], Historical 01/14/2011 PracPart Note [facility] Social History Date Tobacco Use Types Packs/Day Years Used Never Assessed Sex Assigned at Date Recorded Not on file Industry Job Start Date Occupation Not on file Not on file Not on file Travel End Travel History Travel Start No recent travel history available. documented as of this encounter Progress Notes * [facility], Historical - 01/14/2011 8:40 AM OBSTETRICAL TECH . : 08:40am Marital Status: Children: 1 female 20 - 1 male 20 Amount of Caffeine: Coffee: Tea: Soda: Sprite/7Up 1, 8oz Do you smoke: cigarettes, cigars, pipe, etc: yes How often: 1/2 pack to 1 pac k/day Alcohol: no How often: Occupation: No Retired: Are you Claustrophobic? no documented in this encounter Plan of Treatment Care Team Description Date Type Specialty Hortencia Stewart, MUNITIONS WORKER [address] [address] [phone] 03/31/2020 Office Visit Neurology documented as of this encounter Visit Diagnoses Not on filedocumented in this encounter
--- OUTSIDE RECORDS SUMMARY | 2020-02-11 03:15 | XMS REPORT | Continuity of Care Document ---
Author Organization Unknown Address Unknown Phone Unavailable Allergies Active Description Code Type Severity Reaction Onset Reported/Identified Relationship to Patient Clinical Status Yes doxycycline [id number] Drug Aller gy Mild N/A 08/27/2009 Yes acetaminophen [id number] Dave g Allergy Unknown blisters inside 03/22/2016 Yes aspirin [id number] Drug Allergy Unknown interferes with 03/22/2016 Yes codeine [id number] Drug Allergy Unknown blisters inside 03/22/2016 Medications There is no data. Problems Date Dx Coded Attending Type Code Diagnosis Diagnosed By 03/22/2016 RADHA GUILLAUME MD Ot N20.0 CALCULUS OF KIDNEY 03/22/2016 MARKELL MADDOX, RADHA Colvin Ot Z01.8 12 ENCOUNTER FOR PREPROCEDURAL LABORATORY E 03/22/2016 RADHA GUILLAUME MD Ot Z11.2 ENCOUNTER FOR SCREENING FOR OTHER BACTER 03/24/2016 RADHA GUILLAUME MD Ot N20.9 URINARY CALCULUS, UNSPECIFIED 03/24/2016 RADHA GUILLAUME MD Ot N20.0 CALCULUS OF KIDNEY 04/01/2016 RADHA GUILLAUME MD Ot N20.9 URINARY CALCULUS, UNSPECIFIED 04/14/2016 RADHA GUILLAUME MD Ot N20.9 URINARY CALCULUS, UNSPECIFIED 04/19/2016 RADHA GUILLAUME MD Ot N20.9 URINARY CALCULUS, UNSPECIFIED 04/20/2016 RADHA GUILLAUME MD Ot N20.9 URINARY CALCULUS, UNSPECIFIED 04/27/2016 RADHA GUILLAUME MD Ot N20.9 URINARY CALCULUS, UNSPECIFIED 09/07/2017 RADHA GUILLAUME MD Ot N20.9 URINARY CALCULUS, UNSPECIFIED 09/07/2017 RADHA GUILLAUME MD, Ot N20.9 URINARY CALCULUS, UNSPECIFIED 09/07/2017 DANA AVILEZ APRN Ot G40.909 EPILEPSY, UNSP, NOT INTRACTABLE, WITHOUT 09/07/2017 SHIRLEY AVILEZINE Roly PHYSICIAN OFFICE REP Ot G47.9 SLEEP DISORDER, UNSPECIFIED 09/08/2017 MARKELL MADDOX, RADHA Colvin Ot N20.9 URINARY CALCULUS, UNSPECIFIED 09/08/2017 MARKELL MADDOX, RADHA A Ot N20.9 URINARY CALCULUS, UNSPECIFIED 09/08/2017 SHIRLEY AVILEZINE E PHYSICIAN OFFICE REP Ot G40.909 EPILEPSY, UNSP, NOT INTRACTABLE, WITHOUT 09/08/2017 SHIRLEY AVILEZINE E PHYSICIAN OFFICE REP Ot G47.9 SLEEP DISORDER, UNSPECIFIED 09/09/2017 MARKELL MADDOX, RADHA Colvin Ot N20.9 URINARY CALCULUS, UNSPECIFIED 09/09/2017 MARKELL MADDOX, RADHA Colvin Ot N20.9 URINARY CALCULUS, UNSPECIFIED 09/09/2017 RAGHAVSHIRLEY CANNONINE E PHYSICIAN OFFICE REP Ot G40.909 EPILEPSY, UNSP, NOT INTRACTABLE, WITHOUT 09/09/2017 RAGHAV DANA E PHYSICIAN OFFICE REP Ot G47.9 SLEEP DISORDER, UNSPECIFIED 09/12/2017 RAGHAV DANA E PHYSICIAN OFFICE REP Ot G40.909 EPILEPSY, UNSP, NOT INTRACTABLE, WITHOUT 09/12/2017 RAGHAV, DANA E PHYSICIAN OFFICE REP Ot G47.9 SLEEP DISORDER, UNSPECIFIED 09/15/2017 RAGHAV, DANA E PHYSICIAN OFFICE REP Ot J40 BRONCHITIS, NOT SPECIFIED ACUTE OR CH 09/15/2017 RAGHAV, DANA E PHYSICIAN OFFICE REP Ot R06.00 DYSPNEA, UNSPECIFIED 09/17/2017 RAGHAV, DANA E PHYSICIAN OFFICE REP Ot G40.909 EPILEPSY, UNSP, NOT INTRACTABLE, WITHOUT 09/17/2017 RAGHAV, DANA E PHYSICIAN OFFICE REP Ot G47.00 INSOMNIA, UNSPECIFIED 09/17/2017 RAGHAV, DANA E PHYSICIAN OFFICE REP Ot G47.10 HYPERSOMNIA, UNSPECIFIED 09/17/2017 RAGHAV, DANA E PHYSICIAN OFFICE REP Ot G47.50 PARASOMNIA, UNSPECIFIED 09/28/2017 RAGHAV, DANA E PHYSICIAN OFFICE REP Ot J40 BRONCHITIS, NOT SPECIFIED ACUTE OR CH 09/28/2017 RAGHAV, DANA E PHYSICIAN OFFICE REP Ot R06.00 DYSPNEA, UNSPECIFIED 09/28/2017 RAGHAV, DANA E PHYSICIAN OFFICE REP Ot J40 BRONCHITIS, NOT SPECIFIED ACUTE OR CH 09/28/2017 RAGHAV, DANA E PHYSICIAN OFFICE REP Ot R91.8 OTHER NONSPECIFIC ABNORMAL FINDING OF ELSIE 10/26/2017 DANA AVILEZ PHYSICIAN OFFICE REP Ot G47.33 OBSTRUCTIVE SLEEP APNEA (ADULT) (PEDIATR 10/28/2017 DANA AVILEZ PHYSICIAN OFFICE REP Ot J40 BRONCHITIS, NOT SPECIFIED ACUTE OR CH 10/28/2017 DANA AVILEZ PHYSICIAN OFFICE REP Ot R06.00 DYSPNEA, UNSPECIFIED 10/28/2017 SHIRLEY AVILEZINE E PHYSICIAN OFFICE REP Ot G47.33 OBSTRUCTIVE SLEEP APNEA (ADULT) (PEDIATR 11/04/2017 SHIRLEY AVILEZINE E PHYSICIAN OFFICE REP Ot J44.9 CHRONIC OBSTRUCTIVE PULMONARY DISEASE, U 01/17/2018 MARKELL MADDOX, RADHA Colvin Ot N20.2 CALCULUS OF KIDNEY WITH CALCULUS OF URET 01/17/2018 MARKELL MADDOX, RADHA Colvin Ot N20.2 CALCULUS OF KIDNEY WITH CALCULUS OF URET 01/17/2018 DANA AVILEZ E PHYSICIAN OFFICE REP Ot G47.33 OBSTRUCTIVE SLEEP APNEA (ADULT) (PEDIATR 01/26/2018 DANA AVILEZ E PHYSICIAN OFFICE REP Ot G40.909 EPILEPSY, UNSP, NOT INTRACTABLE, WITHOUT 01/26/2018 RAGHAV, DANA E PHYSICIAN OFFICE REP Ot G47.10 HYPERSOMNIA, UNSPECIFIED 01/26/2018 RAGHAVSHIRLEY CANNONINE E PHYSICIAN OFFICE REP Ot G47.33 OBSTRUCTIVE SLEEP APNEA (ADULT) (PEDIATR 01/26/2018 SHIRLEY AVILEZINE E PHYSICIAN OFFICE REP Ot G40.909 EPILEPSY, UNSP, NOT INTRACTABLE, WITHOUT 01/26/2018 RAGHAV, DANA E PHYSICIAN OFFICE REP Ot G47.10 HYPERSOMNIA, UNSPECIFIED 01/26/2018 RAGHAV DANA E PHYSICIAN OFFICE REP Ot G47.33 OBSTRUCTIVE SLEEP APNEA (ADULT) (PEDIATR 01/30/2018 MARKELL MADDOX, RADHA Colvin Ot N20.2 CALCULUS OF KIDNEY WITH CALCULUS OF URET 01/31/2018 SHIRLEY AVILEZINE E PHYSICIAN OFFICE REP Ot G40.909 EPILEPSY, UNSP, NOT INTRACTABLE, WITHOUT 01/31/2018 SHIRLEY AVILEZINE E PHYSICIAN OFFICE REP Ot G47.10 HYPERSOMNIA, UNSPECIFIED 01/31/2018 SHIRLEY AVILEZINE E PHYSICIAN OFFICE REP Ot G47.33 OBSTRUCTIVE SLEEP APNEA (ADULT) (PEDIATR 05/10/2018 DANA AVILEZ PHYSICIAN OFFICE REP Ot J18.1 LOBAR PNEUMONIA, UNSPECIFIED ORGANISM 05/10/2018 DANA AVILEZ PHYSICIAN OFFICE REP Ot J40 BRONCHITIS, NOT SPECIFIED ACUTE OR CH 05/15/2018 DANA AVILEZ PHYSICIAN OFFICE REP Ot J18.1 LOBAR PNEUMONIA, UNSPECIFIED ORGANISM 05/15/2018 RAGHAVDANA CANNON PHYSICIAN OFFICE REP Ot J40 BRONCHITIS, NOT SPECIFIED ACUTE OR CH 05/19/2018 DANA AVILEZ PHYSICIAN OFFICE REP Ot J18.1 LOBAR PNEUMONIA, UNSPECIFIED ORGANISM 05/19/2018 DANA AVILEZ PHYSICIAN OFFICE REP Ot J40 BRONCHITIS, NOT SPECIFIED ACUTE OR CH 07/14/2018 Ot J18.9 PNEU MONIA, UNSPECIFIED ORGANISM 07/14/2018 Ot J40 BRONCH ITIS, NOT SPECIFIED ACUTE OR CH 07/25/2018 Ot F17.200 NI COTINE DEPENDENCE, UNSPECIFIED, UNCOMP 07/25/2018 Ot G47.50 PAR ASOMNIA, UNSPECIFIED 07/25/2018 Ot J40 BRONCH ITIS, NOT SPECIFIED ACUTE OR CH 07/25/2018 Ot J44.9 STEEL FABRICATOR [place] OBSTRUCTIVE PULMONARY DISEASE, U 07/25/2018 Ot J98.11 ATE LECTASIS 01/25/2019 DANA AVILEZ PHYSICIAN OFFICE REP Ot F17.200 NICOTINE DEPENDENCE, UNSPECIFIED, UNCOMP 01/25/2019 DANA AVILEZ PHYSICIAN OFFICE REP Ot G40.909 EPILEPSY, UNSP, NOT INTRACTABLE, WITHOUT 01/25/2019 DANA AVILEZ PHYSICIAN OFFICE REP Ot G47.33 OBSTRUCTIVE SLEEP APNEA (ADULT) (PEDIATR 01/25/2019 DANA AVILEZ PHYSICIAN OFFICE REP Ot G47.50 PARASOMNIA, UNSPECIFIED 01/25/2019 DANA AVILEZ PHYSICIAN OFFICE REP Ot J30.9 ALLERGIC RHINITIS, UNSPECIFIED 01/25/2019 DANA AVILEZ PHYSICIAN OFFICE REP Ot J40 BRONCHITIS, NOT SPECIFIED ACUTE OR CH 01/25/2019 DANA AVILEZ PHYSICIAN OFFICE REP Ot J44.9 CHRONIC OBSTRUCTIVE PULMONARY DISEASE, U 01/25/2019 DANA AVILEZ PHYSICIAN OFFICE REP Ot J98.11 ATELECTASIS 04/20/2019 DANA AVILEZ PHYSICIAN OFFICE REP Ot J40 BRONCHITIS, NOT SPECIFIED ACUTE OR CH 04/20/2019 DANA AVILEZ PHYSICIAN OFFICE REP Ot J44.9 CHRONIC OBSTRUCTIVE PULMONARY DISEASE, U 06/11/2019 DENIA WOODS Ot M17.12 UNILATERAL PRIMARY OSTEOARTHRITIS, LEFT 06/11/2019 KING DENIAVERO FARAH Ot M25.762 OSTEOPHYTE, LEFT KNEE 09/07/2019 DENIA WOODS Ot M25.571 PAIN IN RIGHT ANKLE AND JOINTS OF RIGHT 09/07/2019 DENIA WOODS Ot M79.661 PAIN IN RIGHT LOWER LEG 09/07/2019 DENIA WOODS Ot Z87.81 PERSONAL HISTORY OF (HEALED) TRAUMATIC F 09/07/2019 DENIA WOODS Ot Z96.7 PRESENCE OF OTHER BONE AND TENDON IMPLAN 09/07/2019 DENIA WOODS Ot Z98.890 OTHER SPECIFIED POSTPROCEDURAL STATES 12/31/2019 MARKELL MADDOX, RADHA Colvin Ot N20.9 URINARY CALCULUS, UNSPECIFIED 12/31/2019 RADHA GUILLAUME MD Ot N20.9 URINARY CALCULUS, UNSPECIFIED 12/31/2019 DANA AVILEZ APRN Ot J40 BRONCHITIS, NOT SPECIFIED ACUTE OR CH 12/31/2019 DANA AVILEZ APRN Ot R06.00 DYSPNEA, UNSPECIFIED 12/31/2019 DANA AVILEZ APRN Ot J40 BRONCHITIS, NOT SPECIFIED ACUTE OR CH 12/31/2019 DANA AVILEZ APRN Ot R91.8 OTHER NONSPECIFIC ABNORMAL FINDING OF ELSIE 12/31/2019 DANA AVILEZ APRN Ot J44.9 CHRONIC OBSTRUCTIVE PULMONARY DISEASE, U 12/31/2019 MARKELL MADDOX, RADHA Colvin Ot N20.2 CALCULUS OF KIDNEY WITH CALCULUS OF URET 12/31/2019 DANA AVILEZ APRN Ot J18.1 LOBAR PNEUMONIA, UNSPECIFIED ORGANISM 12/31/2019 DANA AVILEZ APRN Ot J40 BRONCHITIS, NOT SPECIFIED ACUTE OR CH 12/31/2019 Ot J18.9 PNEU MONIA, UNSPECIFIED ORGANISM 12/31/2019 Ot J40 BRONCH ITIS, NOT SPECIFIED ACUTE OR CH 12/31/2019 Ot F17.200 NI COTINE DEPENDENCE, UNSPECIFIED, UNCOMP 12/31/2019 Ot G47.50 PAR ASOMNIA, UNSPECIFIED 12/31/2019 Ot J40 BRONCH ITIS, NOT SPECIFIED ACUTE OR CH 12/31/2019 Ot J44.9 STEEL FABRICATOR [place] OBSTRUCTIVE PULMONARY DISEASE, U 12/31/2019 Ot J98.11 ATE LECTASIS 12/31/2019 RAGHAVDANA CANNON PHYSICIAN OFFICE REP Ot F17.200 NICOTINE DEPENDENCE, UNSPECIFIED, UNCOMP 12/31/2019 DANA AVILEZ PHYSICIAN OFFICE REP Ot G40.909 EPILEPSY, UNSP, NOT INTRACTABLE, WITHOUT 12/31/2019 SHIRLEY AVILEZINE E PHYSICIAN OFFICE REP Ot G47.33 OBSTRUCTIVE SLEEP APNEA (ADULT) (PEDIATR 12/31/2019 DANA AVILEZ PHYSICIAN OFFICE REP Ot G47.50 PARASOMNIA, UNSPECIFIED 12/31/2019 DANA AVILEZ PHYSICIAN OFFICE REP Ot J30.9 ALLERGIC RHINITIS, UNSPECIFIED 12/31/2019 RAGHAVDANA CANNON PHYSICIAN OFFICE REP Ot J40 BRONCHITIS, NOT SPECIFIED ACUTE OR CH 12/31/2019 DANA AVILEZ PHYSICIAN OFFICE REP Ot J44.9 CHRONIC OBSTRUCTIVE PULMONARY DISEASE, U 12/31/2019 RAGHAVDANA CANNON PHYSICIAN OFFICE REP Ot J98.11 ATELECTASIS 12/31/2019 DANA AVILEZ PHYSICIAN OFFICE REP Ot J40 BRONCHITIS, NOT SPECIFIED ACUTE OR CH 12/31/2019 DANA AVILEZ PHYSICIAN OFFICE REP Ot J44.9 CHRONIC OBSTRUCTIVE PULMONARY DISEASE, U 12/31/2019 DENIA WOODS Ot M17.12 UNILATERAL PRIMARY OSTEOARTHRITIS, LEFT 12/31/2019 DENIA WOODS Ot M25.762 OSTEOPHYTE, LEFT KNEE 12/31/2019 DENIA WOODS Ot M17.12 UNILATERAL PRIMARY OSTEOARTHRITIS, LEFT 12/31/2019 DENIA WOODS Ot Z98.890 OTHER SPECIFIED POSTPROCEDURAL STATES 12/31/2019 DENIA WOODS Ot M25.571 PAIN IN RIGHT ANKLE AND JOINTS OF RIGHT 12/31/2019 DENIA WOODS Ot M79.661 PAIN IN RIGHT LOWER LEG 12/31/2019 DENIA WOODS Ot Z87.81 PERSONAL HISTORY OF (HEALED) TRAUMATIC F 12/31/2019 DENIA WOODS Ot Z96.7 PRESENCE OF OTHER BONE AND TENDON IMPLAN 12/31/2019 DENIA WOODS Ot Z98.890 OTHER SPECIFIED POSTPROCEDURAL STATES 01/08/2020 MARKELL MADDOX, RADHA Colvin Ot N20.9 URINARY CALCULUS, UNSPECIFIED 01/08/2020 MARKELL MADDOX, RADHA Colvin Ot N20.9 URINARY CALCULUS, UNSPECIFIED 01/08/2020 DANA AVILEZ PHYSICIAN OFFICE REP Ot J40 BRONCHITIS, NOT SPECIFIED ACUTE OR CH 01/08/2020 SHIRLEY AVILEZINE E PHYSICIAN OFFICE REP Ot R06.00 DYSPNEA, UNSPECIFIED 01/08/2020 SHIRLEY AVILEZINE E PHYSICIAN OFFICE REP Ot J40 BRONCHITIS, NOT SPECIFIED ACUTE OR CH 01/08/2020 RAGHAV DANA E PHYSICIAN OFFICE REP Ot R91.8 OTHER NONSPECIFIC ABNORMAL FINDING OF ELSIE 01/08/2020 SHIRLEY AVILEZINE Roly PHYSICIAN OFFICE REP Ot J44.9 CHRONIC OBSTRUCTIVE PULMONARY DISEASE, U 01/08/2020 MARKELL MADDOX, RADHA Colvin Ot N20.2 CALCULUS OF KIDNEY WITH CALCULUS OF URET 01/08/2020 DANA AVILEZ PHYSICIAN OFFICE REP Ot J18.1 LOBAR PNEUMONIA, UNSPECIFIED ORGANISM 01/08/2020 DANA AVILEZ PHYSICIAN OFFICE REP Ot J40 BRONCHITIS, NOT SPECIFIED ACUTE OR CH 01/08/2020 Ot J18.9 PNEU MONIA, UNSPECIFIED ORGANISM 01/08/2020 Ot J40 BRONCH ITIS, NOT SPECIFIED ACUTE OR CH 01/08/2020 Ot F17.200 NI COTINE DEPENDENCE, UNSPECIFIED, UNCOMP 01/08/2020 Ot G47.50 PAR ASOMNIA, UNSPECIFIED 01/08/2020 Ot J40 BRONCH ITIS, NOT SPECIFIED ACUTE OR CH 01/08/2020 Ot J44.9 STEEL FABRICATOR [place] OBSTRUCTIVE PULMONARY DISEASE, U 01/08/2020 Ot J98.11 ATE LECTASIS 01/08/2020 DANA AVILEZ PHYSICIAN OFFICE REP Ot F17.200 NICOTINE DEPENDENCE, UNSPECIFIED, UNCOMP 01/08/2020 DANA AVILEZ PHYSICIAN OFFICE REP Ot G40.909 EPILEPSY, UNSP, NOT INTRACTABLE, WITHOUT 01/08/2020 DANA AVILEZ E PHYSICIAN OFFICE REP Ot G47.33 OBSTRUCTIVE SLEEP APNEA (ADULT) (PEDIATR 01/08/2020 DANA AVILEZ PHYSICIAN OFFICE REP Ot G47.50 PARASOMNIA, UNSPECIFIED 01/08/2020 DANA AVILEZ PHYSICIAN OFFICE REP Ot J30.9 ALLERGIC RHINITIS, UNSPECIFIED 01/08/2020 DANA AVILEZ PHYSICIAN OFFICE REP Ot J40 BRONCHITIS, NOT SPECIFIED ACUTE OR CH 01/08/2020 DANA AVILEZ PHYSICIAN OFFICE REP Ot J44.9 CHRONIC OBSTRUCTIVE PULMONARY DISEASE, U 01/08/2020 DANA AVILEZ PHYSICIAN OFFICE REP Ot J98.11 ATELECTASIS 01/08/2020 DANA AVILEZ PHYSICIAN OFFICE REP Ot J40 BRONCHITIS, NOT SPECIFIED ACUTE OR CH 01/08/2020 DANA AVILEZ PHYSICIAN OFFICE REP Ot J44.9 CHRONIC OBSTRUCTIVE PULMONARY DISEASE, U 01/08/2020 CHUCK DENIA DARNELLP Ot M17.12 UNILATERAL PRIMARY OSTEOARTHRITIS, LEFT 01/08/2020 KING DENIA DARNELLP Ot M25.762 OSTEOPHYTE, LEFT KNEE 01/08/2020 KING DENIA DARNELLP Ot M17.12 UNILATERAL PRIMARY OSTEOARTHRITIS, LEFT 01/08/2020 KING DENIA DARNELLP Ot Z98.890 OTHER SPECIFIED POSTPROCEDURAL STATES 01/08/2020 DENIA WOODS Ot M25.571 PAIN IN RIGHT ANKLE AND JOINTS OF RIGHT 01/08/2020 DENIA WOODSP Ot M79.661 PAIN IN RIGHT LOWER LEG 01/08/2020 DENIA WOODSP Ot Z87.81 PERSONAL HISTORY OF (HEALED) TRAUMATIC F 01/08/2020 CHUCKDENIA POWER AND RECOVERY SUPERVISOR Ot Z96.7 PRESENCE OF OTHER BONE AND TENDON IMPLAN 01/08/2020 DENIA WOODSP Ot Z98.890 OTHER SPECIFIED POSTPROCEDURAL STATES 01/08/2020 RADHA GUILLAUME MD Ot N20.9 URINARY CALCULUS, UNSPECIFIED 01/08/2020 RADHA GUILLAUME MD Ot N20.9 URINARY CALCULUS, UNSPECIFIED 01/08/2020 DANA AVILEZ PHYSICIAN OFFICE REP Ot J40 BRONCHITIS, NOT SPECIFIED ACUTE OR CH 01/08/2020 DANA AVILEZ PHYSICIAN OFFICE REP Ot R06.00 DYSPNEA, UNSPECIFIED 01/08/2020 DANA AVILEZ PHYSICIAN OFFICE REP Ot J40 BRONCHITIS, NOT SPECIFIED ACUTE OR CH 01/08/2020 DANA AVILEZ PHYSICIAN OFFICE REP Ot R91.8 OTHER NONSPECIFIC ABNORMAL FINDING OF ELSIE 01/08/2020 DANA AVILEZ PHYSICIAN OFFICE REP Ot J44.9 CHRONIC OBSTRUCTIVE PULMONARY DISEASE, U 01/08/2020 RADHA GUILLAUME MD Ot N20.2 CALCULUS OF KIDNEY WITH CALCULUS OF URET 01/08/2020 DANA AVILEZ PHYSICIAN OFFICE REP Ot J18.1 LOBAR PNEUMONIA, UNSPECIFIED ORGANISM 01/08/2020 SHIRLEY AVILEZINE E PHYSICIAN OFFICE REP Ot J40 BRONCHITIS, NOT SPECIFIED ACUTE OR CH 01/08/2020 Ot J18.9 PNEU MONIA, UNSPECIFIED ORGANISM 01/08/2020 Ot J40 BRONCH ITIS, NOT SPECIFIED ACUTE OR CH 01/08/2020 Ot F17.200 NI COTINE DEPENDENCE, UNSPECIFIED, UNCOMP 01/08/2020 Ot G47.50 PAR ASOMNIA, UNSPECIFIED 01/08/2020 Ot J40 BRONCH ITIS, NOT SPECIFIED ACUTE OR CH 01/08/2020 Ot J44.9 STEEL FABRICATOR [place] OBSTRUCTIVE PULMONARY DISEASE, U 01/08/2020 Ot J98.11 ATE LECTASIS 01/08/2020 RAGHAV, DANA E PHYSICIAN OFFICE REP Ot F17.200 NICOTINE DEPENDENCE, UNSPECIFIED, UNCOMP 01/08/2020 RAGHAV, DANA E PHYSICIAN OFFICE REP Ot G40.909 EPILEPSY, UNSP, NOT INTRACTABLE, WITHOUT 01/08/2020 RAGHAV, DANA E PHYSICIAN OFFICE REP Ot G47.33 OBSTRUCTIVE SLEEP APNEA (ADULT) (PEDIATR 01/08/2020 RAGHAV, DANA E PHYSICIAN OFFICE REP Ot G47.50 PARASOMNIA, UNSPECIFIED 01/08/2020 RAGHAV, DANA E PHYSICIAN OFFICE REP Ot J30.9 ALLERGIC RHINITIS, UNSPECIFIED 01/08/2020 RAGHAV, DANA E PHYSICIAN OFFICE REP Ot J40 BRONCHITIS, NOT SPECIFIED ACUTE OR CH 01/08/2020 RAGHAV, DANA E PHYSICIAN OFFICE REP Ot J44.9 CHRONIC OBSTRUCTIVE PULMONARY DISEASE, U 01/08/2020 SHIRLEY AVILEZINE E PHYSICIAN OFFICE REP Ot J98.11 ATELECTASIS 01/08/2020 RAGHAV, DANA E PHYSICIAN OFFICE REP Ot J40 BRONCHITIS, NOT SPECIFIED ACUTE OR CH 01/08/2020 RAGHAV, DANA E PHYSICIAN OFFICE REP Ot J44.9 CHRONIC OBSTRUCTIVE PULMONARY DISEASE, U 01/08/2020 DENIA WOODS Ot M17.12 UNILATERAL PRIMARY OSTEOARTHRITIS, LEFT 01/08/2020 DENIA WOODS Ot M25.762 OSTEOPHYTE, LEFT KNEE 01/08/2020 DENIA WOODS Ot M17.12 UNILATERAL PRIMARY OSTEOARTHRITIS, LEFT 01/08/2020 DENIA WOODS Ot Z98.890 OTHER SPECIFIED POSTPROCEDURAL STATES 01/08/2020 DENIA WOODS Ana María FARAH Ot M25.571 PAIN IN RIGHT ANKLE AND JOINTS OF RIGHT 01/08/2020 DENIA WOODS Ana María FARAH Ot M79.661 PAIN IN RIGHT LOWER LEG 01/08/2020 DENIA WOODS Ana María FARAH Ot Z87.81 PERSONAL HISTORY OF (HEALED) TRAUMATIC F 01/08/2020 DENIA WOODS Ana María FARAH Ot Z96.7 PRESENCE OF OTHER BONE AND TENDON IMPLAN 01/08/2020 DENIAVERO FARAH Ot Z98.890 OTHER SPECIFIED POSTPROCEDURAL STATES 01/09/2020 MARKELL MADDOX, RADHA Colvin Ot N20.9 URINARY CALCULUS, UNSPECIFIED 01/09/2020 RADHA GUILLAUME MD Ot N20.9 URINARY CALCULUS, UNSPECIFIED 01/09/2020 DANA AVILEZ APRN Ot J40 BRONCHITIS, NOT SPECIFIED ACUTE OR CH 01/09/2020 DANA AVILEZ APRN Ot R06.00 DYSPNEA, UNSPECIFIED 01/09/2020 DANA AVILEZ APRN Ot J40 BRONCHITIS, NOT SPECIFIED ACUTE OR CH 01/09/2020 DANA AVILEZ APRN Ot R91.8 OTHER NONSPECIFIC ABNORMAL FINDING OF ELSIE 01/09/2020 DANA AVILEZ APRN Ot J44.9 CHRONIC OBSTRUCTIVE PULMONARY DISEASE, U 01/09/2020 MARKELL MADDOX, RADHA Colvin Ot N20.2 CALCULUS OF KIDNEY WITH CALCULUS OF URET 01/09/2020 DANA AVILEZ APRN Ot J18.1 LOBAR PNEUMONIA, UNSPECIFIED ORGANISM 01/09/2020 DANA AVILEZ APRN Ot J40 BRONCHITIS, NOT SPECIFIED ACUTE OR CH 01/09/2020 Ot J18.9 PNEU MONIA, UNSPECIFIED ORGANISM 01/09/2020 Ot J40 BRONCH ITIS, NOT SPECIFIED ACUTE OR CH 01/09/2020 Ot F17.200 NI COTINE DEPENDENCE, UNSPECIFIED, UNCOMP 01/09/2020 Ot G47.50 PAR ASOMNIA, UNSPECIFIED 01/09/2020 Ot J40 BRONCH ITIS, NOT SPECIFIED ACUTE OR CH 01/09/2020 Ot J44.9 STEEL FABRICATOR [place] OBSTRUCTIVE PULMONARY DISEASE, U 01/09/2020 Ot J98.11 ATE LECTASIS 01/09/2020 DANA AVILEZ PHYSICIAN OFFICE REP Ot F17.200 NICOTINE DEPENDENCE, UNSPECIFIED, UNCOMP 01/09/2020 DANA AVILEZ PHYSICIAN OFFICE REP Ot G40.909 EPILEPSY, UNSP, NOT INTRACTABLE, WITHOUT 01/09/2020 DANA AVILEZ E PHYSICIAN OFFICE REP Ot G47.33 OBSTRUCTIVE SLEEP APNEA (ADULT) (PEDIATR 01/09/2020 DANA AVILEZ PHYSICIAN OFFICE REP Ot G47.50 PARASOMNIA, UNSPECIFIED 01/09/2020 DANA AVILEZ PHYSICIAN OFFICE REP Ot J30.9 ALLERGIC RHINITIS, UNSPECIFIED 01/09/2020 DANA AVILEZ PHYSICIAN OFFICE REP Ot J40 BRONCHITIS, NOT SPECIFIED ACUTE OR CH 01/09/2020 DANA AVILEZ PHYSICIAN OFFICE REP Ot J44.9 CHRONIC OBSTRUCTIVE PULMONARY DISEASE, U 01/09/2020 DANA AVILEZ PHYSICIAN OFFICE REP Ot J98.11 ATELECTASIS 01/09/2020 DANA AVILEZ PHYSICIAN OFFICE REP Ot J40 BRONCHITIS, NOT SPECIFIED ACUTE OR CH 01/09/2020 DANA AVILEZ PHYSICIAN OFFICE REP Ot J44.9 CHRONIC OBSTRUCTIVE PULMONARY DISEASE, U 01/09/2020 DENIA WOODS Ot M17.12 UNILATERAL PRIMARY OSTEOARTHRITIS, LEFT 01/09/2020 DENIA WOODS Ot M25.762 OSTEOPHYTE, LEFT KNEE 01/09/2020 DENIA WOODS Ot M17.12 UNILATERAL PRIMARY OSTEOARTHRITIS, LEFT 01/09/2020 DENIA WOODS Ot Z98.890 OTHER SPECIFIED POSTPROCEDURAL STATES 01/09/2020 DENIA WOODS Ot M25.571 PAIN IN RIGHT ANKLE AND JOINTS OF RIGHT 01/09/2020 DENIA WOODS Ot M79.661 PAIN IN RIGHT LOWER LEG 01/09/2020 DENIA WOODS Ot Z87.81 PERSONAL HISTORY OF (HEALED) TRAUMATIC F 01/09/2020 DENIA WOODS Ot Z96.7 PRESENCE OF OTHER BONE AND TENDON IMPLAN 01/09/2020 DENIA WOODS Ot Z98.890 OTHER SPECIFIED POSTPROCEDURAL STATES 01/09/2020 MARKELL MADDOX, RADHA Colvin Ot N20.9 URINARY CALCULUS, UNSPECIFIED 01/09/2020 RADHA GUILLAUME MD Ot N20.9 URINARY CALCULUS, UNSPECIFIED 01/09/2020 RAGHAV, DANA E PHYSICIAN OFFICE REP Ot J40 BRONCHITIS, NOT SPECIFIED ACUTE OR CH 01/09/2020 RAGHAV, DANA E PHYSICIAN OFFICE REP Ot R06.00 DYSPNEA, UNSPECIFIED 01/09/2020 RAGHAV, DANA E PHYSICIAN OFFICE REP Ot J40 BRONCHITIS, NOT SPECIFIED ACUTE OR CH 01/09/2020 RAGHAV, DANA E PHYSICIAN OFFICE REP Ot R91.8 OTHER NONSPECIFIC ABNORMAL FINDING OF ELSIE 01/09/2020 SHIRLEY AVILEZINE E PHYSICIAN OFFICE REP Ot J44.9 CHRONIC OBSTRUCTIVE PULMONARY DISEASE, U 01/09/2020 MARKELL MADDOX, RADHA Colvin Ot N20.2 CALCULUS OF KIDNEY WITH CALCULUS OF URET 01/09/2020 DANA AVILEZ PHYSICIAN OFFICE REP Ot J18.1 LOBAR PNEUMONIA, UNSPECIFIED ORGANISM 01/09/2020 RAGHAV, DANA E PHYSICIAN OFFICE REP Ot J40 BRONCHITIS, NOT SPECIFIED ACUTE OR CH 01/09/2020 Ot J18.9 PNEU MONIA, UNSPECIFIED ORGANISM 01/09/2020 Ot J40 BRONCH ITIS, NOT SPECIFIED ACUTE OR CH 01/09/2020 Ot F17.200 NI COTINE DEPENDENCE, UNSPECIFIED, UNCOMP 01/09/2020 Ot G47.50 PAR ASOMNIA, UNSPECIFIED 01/09/2020 Ot J40 BRONCH ITIS, NOT SPECIFIED ACUTE OR CH 01/09/2020 Ot J44.9 STEEL FAB[employer]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 [place] OBSTRUCTIVE PULMONARY DISEASE, U 01/09/2020 Ot J98.11 ATE LECTASIS 01/09/2020 RAGHAV, DANA E PHYSICIAN OFFICE REP Ot F17.200 NICOTINE DEPENDENCE, UNSPECIFIED, UNCOMP 01/09/2020 SHIRLEY AVILEZINE E PHYSICIAN OFFICE REP Ot G40.909 EPILEPSY, UNSP, NOT INTRACTABLE, WITHOUT 01/09/2020 RAGHAV, DANA E PHYSICIAN OFFICE REP Ot G47.33 OBSTRUCTIVE SLEEP APNEA (ADULT) (PEDIATR 01/09/2020 SHIRLEY AVILEZINE E PHYSICIAN OFFICE REP Ot G47.50 PARASOMNIA, UNSPECIFIED 01/09/2020 RAGHAV DANA E PHYSICIAN OFFICE REP Ot J30.9 ALLERGIC RHINITIS, UNSPECIFIED 01/09/2020 RAGHAV, DANA E PHYSICIAN OFFICE REP Ot J40 BRONCHITIS, NOT SPECIFIED ACUTE OR CH 01/09/2020 RAGHAV, DANA E PHYSICIAN OFFICE REP Ot J44.9 CHRONIC OBSTRUCTIVE PULMONARY DISEASE, U 01/09/2020 DANA AVILEZ APRN Ot J98.11 ATELECTASIS 01/09/2020 DANA AVILEZ APRN Ot J40 BRONCHITIS, NOT SPECIFIED ACUTE OR CH 01/09/2020 DANA AVILEZ APRN Ot J44.9 CHRONIC OBSTRUCTIVE PULMONARY DISEASE, U 01/09/2020 CHUCKDENIA Ot M17.12 UNILATERAL PRIMARY OSTEOARTHRITIS, LEFT 01/09/2020 DENIA WOODS Ot M25.762 OSTEOPHYTE, LEFT KNEE 01/09/2020 KING DENIA FARAH Ot M17.12 UNILATERAL PRIMARY OSTEOARTHRITIS, LEFT 01/09/2020 LENNIE WOODSVERO FARAH Ot Z98.890 OTHER SPECIFIED POSTPROCEDURAL STATES 01/09/2020 DENIA WOODS Ot M25.571 PAIN IN RIGHT ANKLE AND JOINTS OF RIGHT 01/09/2020 DENIA WOODS Ot M79.661 PAIN IN RIGHT LOWER LEG 01/09/2020 DENIA WOODS Ot Z87.81 PERSONAL HISTORY OF (HEALED) TRAUMATIC F 01/09/2020 CHUCKDENIA Ot Z96.7 PRESENCE OF OTHER BONE AND TENDON IMPLAN 01/09/2020 DENIA WOODS Ot Z98.890 OTHER SPECIFIED POSTPROCEDURAL STATES Procedures There is no data. Results Test Result Range [id number] - 09/08/17 10:29 Serum or plasma urea nitrogen measurement (mass/volume ) 22 mg/dL 7-18 Serum or plasma creatinine measurement (mass/volume) 0.96 mg/dL 0.60-1.30 Serum or plasma urea nitrogen/creatinine mass ratio 23 NRG Serum or plasma creatinine measurement w ith calculation of estimated glomerular filtration rate > NRG Arterial blood gas measurement - 7 12:25 Blood pCO2 35 mm[Hg] 35-45 Blood pO2 166 mm[Hg] 79-93 Arterial blood bicarbonate measurement (moles/volume) 22 mmol/L 23-27 Arterial blood base excess by calculation -1.9 mmo l/L -2.5-2.5 Arterial blood oxygen saturation measurement 100 % 94-100 * Inhaled oxygen flow rate ROOM AIR NRG Arterial blood pH measurement with patient temperature correction 7.41 7.37-7.43 Arterial blood carbon dioxide, total measurement (mole s/volume) 23.2 mmol/L 21.0-31.0 Body site RT RAD NRG Assessment of wrist artery patency prior to arterial p uncture YES-POS NRG Setting of ventilation mode NO NR G Measurement of body temperature 98.7 NRG Arterial blood gas measurement - 9 11:54 Blood pCO2 34 mm[Hg] 35-45 Blood pO2 94 mm[Hg] 79-93 Arterial blood bicarbonate measurement (moles/volume) 21 mmol/L 23-27 Arterial blood base excess by calculation -3.3 mmo l/L -2.5-2.5 Arterial blood oxygen saturation measurement 99 % 94-100 * Inhaled oxygen flow rate ROOM AIR NRG Arterial blood pH measurement with patient temperature correction 7.40 7.37-7.43 Arterial blood carbon dioxide, total measurement (mole s/volume) 21.8 mmol/L 21.0-31.0 Body site R RAD NRG Assessment of wrist artery patency prior to arterial p uncture YES-POS NRG Setting of ventilation mode NO NR G Measurement of body temperature 97.9 NRG Encounters ACCT No. Visit Date/Time Discharge Status Pt. Type Provider Facility Loc./Unit Complaint [id number] 10/28/2019 12:00:00 10/28/2019 23:59: 59 [facility] [id number] 12/07/2019 13:32:00 23:59:59 CLS Preadmit DANA AVILEZ APRN [facility] JOSE ALBERTO,PARASOMNIA, SLEEP DISORDER [id number] 09/03/2019 09:24:00 23:59:59 CLS Outpatient DENIA WOODS [facility] RAD FS M25.571 [id number] 08/27/2019 09:32:00 23:59:59 CLS Outpatient DENIA WOODS [facility] RAD FS M17.12 [id number] 05/29/2019 10:29:00 23:59:59 CLS Outpatient DENIA WOODS [facility] RAD FS M17.12 [id number] 04/18/2019 13:16:00 23:59:59 CLS Outpatient SHIRLEY AVILEZINE Roly PHYSICIAN OFFICE REP [facility] RT BRONCHITIS [id number] 01/09/2019 10:42:00 23:59:59 CLS Outpatient SHIRLEY AVILEZINE E PHYSICIAN OFFICE REP [facility] RAD BRONCHITIS,COPD TYPE B,EPILEPSY [id number] 05/09/2018 11:28:00 23:59:59 CLS Outpatient SHIRLEY AVILEZINE E PHYSICIAN OFFICE REP [facility] RAD J40 [id number] 01/25/2018 20:47:00 06:15:00 DIS Outpatient DANA AVILEZ PHYSICIAN OFFICE REP [facility] SLEEP G47.33 SLEEP AP HÉCTOR [id number] 01/16/2018 14:38:00 23:59:59 CLS Outpatient RADHA GUILLAUME MD [facility] RAD N20.0 [id number] 10/26/2017 11:11:00 23:59:59 CLS Outpatient DANA AVILEZ PHYSICIAN OFFICE REP [facility] SLEEP G47.33 OBSTRUCT EARLENE SLEEP APNEA [id number] 10/25/2017 12:06:00 23:59:59 CLS Outpatient DANA AVILEZ PHYSICIAN OFFICE REP [facility] LAB J44.9 [id number] 09/16/2017 20:15:00 06:24:00 DIS Outpatient DANA AVILEZ PHYSICIAN OFFICE REP [facility] SLEEP SLEEP DISORDER [id number] 09/14/2017 08:34:00 23:59:59 CLS Outpatient DANA AVILEZ PHYSICIAN OFFICE REP [facility] RT BRONCHITIS [id number] 09/08/2017 10:05:00 23:59:59 CLS Outpatient DANA AVILEZ PHYSICIAN OFFICE REP [facility] RAD BRONCHITIS [id number] 03/31/2016 15:26:00 016 23:59:59 CLS Outpatient RADHA GUILLAUME MD [facility] RAD STONE [id number] 03/24/2016 06:15:00 11:05:00 DIS Outpatient RADHA GUILLAUME MD [facility] SDC RIGHT URETHRAL STONE [id number] 03/22/2016 12:45:00 23:59:59 CLS Outpatient RADHA GUILLAUME MD [facility] RAD STONE [id number] 03/22/2016 14:12:00 14:45:00 DIS Outpatient RADHA GUILLAUME MD [facility] PREOP RIGHT URETHRAL STONE [id number] 12/31/2019 00:34:00 Document Registration [id number] 07/05/2018 11:12:00 Document Registration [id number] 07/03/2018 10:41:00 Document Registration
--- OUTSIDE RECORDS SUMMARY | 2020-02-11 03:15 | XMS REPORT | Encounter Summary ---
Author Author [facility] Organization [facility] Address Unknown Phone Unavailable Care Team Providers Care Treer Name Role Phone EldonFreedom correa PCP Encounter Details Care Team Description Date Type Department [facility], Historical 01/13/2011 PracPart Note [facility] Social History Date Tobacco Use Types Packs/Day Years Used Never Assessed Sex Assigned at Date Recorded Not on file Industry Job Start Date Occupation Not on file Not on file Not on file Travel End Travel History Travel Start No recent travel history available. documented as of this encounter [facility] - 01/13/2011 8:51 AM BLOOD TESTER . :08:51AM .T:Appt January 27 - new pt pkt From: Elsy Murdock (OB) Originated by: Elsy Murdock (OB) Sent: 01/13/2011 at 08:51 AM To: Gretchen Dominguez (DONNA) Type: CHART Priority: 3 Attachment: INVALID LINK:Summer Cullen [id number] - [id number]:[id number] [id number] [id number] Subject: Appt January 27 - new pt pkt w/ SRAVANI documented in this encounter Plan of Treatment Care Team Description Date Type Specialty Hortencia Stewart, USER EXPERIENCE ANALYST [address] [address] [phone] 03/31/2020 Office Visit Neurology documented as of this encounter Visit Diagnoses Not on filedocumented in this encounter"
== END 2020-02-10 17:40 | disposition home or self-care (01) ==
LOC: EDUNIT# 17:18 → ER FS 17:20
DX: S60.222A Contusion of left hand, initial encounter (principal); Z86.69 Personal history of other diseases of the nervous system and sense organs; Z88.6 Allergy status to analgesic agent; Z88.5 Allergy status to narcotic agent; X58.XXXA Exposure to other specified factors, initial encounter
CPT/HCPCS: 73130

== ENCOUNTER 2020-07-07 20:19 | Emergency (ER) | payer MEDICARE, MEDICAID ==
[~2020-07-07] VITALS: Ht 160 cm; Wt 94.8 kg
[~2020-07-07 20:19] MED LIST changes: -SIME125C86 PO; +SIME125C95 PO
--- NOTE | 2020-07-07 20:46 | ED Lower Extremity ---
General Chief Complaint: Laceration Stated Complaint: FALL,TOE LAC Source: patient, RN/MD History of Present Illness Date Seen by Provider: Jul 07, 2020 Time Seen by Provider: 20:40 Initial Comments This patient presents to the emerge department for laceration to her right fifth digit. Patient states she had a seizure and bleach kicked something causing pain and laceration to her toe. Patient has long history of seizures. Scheduling the patient about a medical screening exam patient is wishes evaluation of her foot. We'll get x-rays rule out any fractures and repair laceration shortly. Patient is a 2 cm laceration with bleeding controlled to the base of her fifth digit on the sole side. Onset: just prior to arrival Pain/Injury Location: right 5th toe Allergies and Home Medications Allergies Coded Allergies: acetaminophen (Verified Allergy, Unknown, blisters inside mouth, 03/22/16) aspirin (Verified Allergy, Unknown, interferes with seizure med, 03/22/16) codeine (Verified Allergy, Unknown, blisters inside mouth, 03/22/16) Home Medications Calcium Carbonate/Vitamin D3 1 Each Tablet, 1 EACH PO TID, (Reported) Carvedilol 6.25 Mg Tablet, 6.25 MG PO DAILY, (Reported) Carvedilol 6.25 Mg Tablet, 3.125 MG PO HS, (Reported) TAKE 1/2 OF 6.25MG TAB Cephalexin 500 Mg Tablet, 500 MG PO BID Prescribed by: CASH SARGENT on 07/07/202152 Diphenhydramine HCl 25 Mg Capsule, 50 MG PO TAKE WITH HYDROCODON, (Reported) TAKE 2 (25MG) TABS WITH HYDROCODONE Folic Acid 0.4 Mg Tablet, 0.4 MG PO DAILY, (Reported) Hydrocodone Bit/Acetaminophen 1 Each Tablet, 1-2 EACH PO Q4H PRN for PAIN, (Reported) Hydrocodone/Acetaminophen 1 Each Tablet, 1-2 EACH PO Q4H PRN for PAIN Prescribed by: NUBIA ROBLES on 03/24/16 1008 Ibuprofen 800 Mg Tablet, 800 MG PO Q8H PRN for PAIN, (Reported) Lamotrigine 200 Mg Tab, 200 MG PO TID, (Reported) Melatonin/Pyridoxine 1 Each Tablet, 3 MG PO HS PRN for SLEEP, (Reported) Nitrofurantoin Monohyd/M-Cryst 100 Mg Capsule, 1 TAB PO BID Prescribed by: NUBIA ROBLES on 03/24/16 1008 Simethicone 125 Mg Capsule, 125 MG PO PRN PRN for GAS, (Reported) Simvastatin 20 Mg Tablet, 20 MG PO HS, (Reported) Topiramate 200 Mg Tablet, 200 MG PO TID, (Reported) Venlafaxine HCl 150 Mg Cap.er.24h, 150 MG PO DAILY, (Reported) Patient Home Medication List Home Medication List Reviewed: Yes Review of Systems Constitutional: No no symptoms reported, No see HPI, No chills, No diaphoresis, No dizziness, No fever, No malaise, No weakness, No weight gain, No weight loss, No other EENTM: No see HPI, No no symptoms reported, No ear discharge, No hearing loss, No ear pain, No blurred vision, No double vision, No eye pain, No tearing, No vision loss, No dental problems, No hoarseness, No mouth pain, No mouth swelling, No epistaxis, No nose congestion, No nose pain, No throat pain, No throat swelling, No other Respiratory: No no symptoms reported, No see HPI, No cough, No dyspnea on exertion, No hemoptysis, No orthopnea, No phlegm, No short of breath, No stridor, No wheezing, No other Cardiovascular: No no symptoms reported, No see HPI, No chest pain, No edema, No Hx of Intervention, No palpitations, No syncope, No vascular heart diseas, No other Gastrointestinal: No RUQ, No LUQ, No RLQ, No LLQ, No no symptoms reported, No see HPI, No abdominal pain, No constipation, No diarrhea, No dysphagia, No hematemesis, No heartburn, No jaundice, No loss of appetite, No melena, No nausea, No vomiting, No other Genitourinary: No no symptoms reported, No see HPI, No decreased output, No discharge, No dysuria, No frequency, No hematuria, No hesitancy, No incontinence, No nocturia, No pain, No other Musculoskeletal: No no symptoms reported; see HPI; No back pain, No gout; joint pain; No joint swelling, No muscle pain, No muscle stiffness, No muscle cramps, No muscle twitching, No muscle weakness, No neck pain, No other Skin: No no symptoms reported; see HPI; No change in color, No change in hair/nails, No dryness, No hx of skin cancer, No lesions, No lumps, No pruritus, No rash, No other Psychiatric/Neurological: Denies No Symptoms Reported, Denies See HPI, Denies Anxiety, Denies Depressed, Denies Emotional Problems, Denies Headache, Denies Numbness, Denies Paresthesia, Denies Pre-Existing Deficit, Denies Seizure, Denies Tingling, Denies Tremors, Denies Weakness, Denies Other All Other Systems Reviewed Negative Unless Noted: Yes Past Rruqiho-Filopa-Saqstu Hx Patient Social History Type Used: Cigarettes 2nd Hand Smoke Exposure: No Recent Foreign Travel: No Contact w/Someone Who Travel: No Recent Hopitalizations: No Immunizations Up To Date Date of Pneumonia Vaccine: Nov 28, 2013 Seasonal Allergies Seasonal Allergies: No Past Medical History Surgeries: Yes (vagal nerve stimulator and battery changed x3 bilat lower leg fx, ) Respiratory: Yes COPD Cardiac: No (Tachycardia) Neurological: Yes (Grand mal-last one 03/21/16) Seizure Disorder Reproductive Disorders: No Sexually Transmitted Disease: No Genitourinary: Yes Kidney Stones Gastrointestinal: No Musculoskeletal: No (bilat ankle fx and huston fx's) Arthritis, Fractures Endocrine: No HEENT: Yes Hearing Impairment: Hard of Hearing Cancer: No Psychosocial: No Integumentary: No Blood Disorders: No Physical Exam Vital Signs Vital Signs - First Documented 07/07/20 20:39 Temp 37.7 Pulse 111 Resp 19 B/P (MAP) 152/105 (121) O2 Delivery Room Air Capillary Refill : Height, Weight, BMI Height: 5'3.00" Weight: 191lbs. 2.0oz. 86.425258mc; 36.00 BMI Method: General Appearance: WD/WN, no apparent distress Cardiovascular: normal peripheral pulses, regular rate, rhythm, no edema, no gallop, no JVD, no murmur Respiratory: chest non-tender, lungs clear, normal breath sounds, no respiratory distress, no accessory muscle use Gastrointestinal: normal bowel sounds, non tender, soft, no organomegaly, no pulsatile mass Feet: right foot bone tenderness, right foot soft tissue tenderness (small laceration to the base of the fifth digit on the sole side. Bleeding is contr olled) Procedures/Interventions Wound Location: Lower Extremities Wound Length (cm): 2.5 Wound's Depth, Shape: irregular Wound Explored: clean Irrigated w/ Saline (ccs): 250 Betadine Prep?: Yes Anesthesia: 1% Lidocaine Suture: Ethlion Suture Size: 4-0 F5-2 Number of Sutures: 4 Sterile Dressing Applied?: No Progress Patient does have a fifth metatarsal fracture. Patient does have a 2.5 cm laceration to the base of the fifth toe on the right foot extending into him between the fourth and fifth digit. Did repair to approximate tissues with 4 sutures. Patient will have Neosporin and we'll linda tape toe. Patient will be placed in a surgical shoe. Progress/Results/Core Measures Results/Orders Lab Results Laboratory Tests Test 07/07/20 21:16 Range/Units White Blood Count 15.3 H 4.3-11.0 10^3/uL Red Blood Count 4.81 4.35-5.85 10^6/uL Hemoglobin 14.5 11.5-16.0 G/DL Hematocrit 44 35-52 % Mean Corpuscular Volume 91 80-99 FL Mean Corpuscular Hemoglobin 30 25-34 PG Mean Corpuscular Hemoglobin Concent 33 32-36 G/DL Red Cell Distribution Width 13.7 10.0-14.5 % Platelet Count 240 130-400 10^3/uL Mean Platelet Volume 10.1 7.4-10.4 FL Neutrophils (%) (Auto) 67 42-75 % Lymphocytes (%) (Auto) 25 12-44 % Monocytes (%) (Auto) 6 0-12 % Eosinophils (%) (Auto) 2 0-10 % Basophils (%) (Auto) 1 0-10 % Neutrophils # (Auto) 10.3 H 1.8-7.8 X 10^3 Lymphocytes # (Auto) 3.8 1.0-4.0 X 10^3 Monocytes # (Auto) 0.9 0.0-1.0 X 10^3 Eosinophils # (Auto) 0.2 0.0-0.3 10^3/uL Basophils # (Auto) 0.1 0.0-0.1 10^3/uL Neutrophils % (Manual) 65 % Lymphocytes % (Manual) 25 % Monocytes % (Manual) 2 % Eosinophils % (Manual) 2 % Basophils % (Manual) 0 % Band Neutrophils 6 % Blood Morphology Comment NORMAL Sodium Level 139 135-145 MMOL/L Potassium Level 4.1 3.6-5.0 MMOL/L Chloride Level 103 98-107 MMOL/L Carbon Dioxide Level 25 21-32 MMOL/L Anion Gap 11 5-14 MMOL/L Blood Urea Nitrogen 16 7-18 MG/DL Creatinine 0.92 0.60-1.30 MG/DL Estimat Glomerular Filtration Rate > 60 BUN/Creatinine Ratio 17 Glucose Level 198 H 70-105 MG/DL Calcium Level 9.7 8.5-10.1 MG/DL My Orders Orders - CASH SARGENT MD Foot 3 View Right (07/07/20 20:42) Cefazolin Injection (Ancef Injection) (07/07/20 21:00) Ed Iv/Invasive Line Start (07/07/20 20:58) Cbc With Automated Diff (07/07/20 20:58) Basic Metabolic Panel (07/07/20 20:58) Lidocaine 1% Inj 20 Ml (Xylocaine 1% Inj (07/07/20 20:55) Manual Differential (07/07/20 21:16) Medications Given in ED Current Medications Medications Dose Ordered Sig/Alisia Route Start Time Stop Time Status Last Admin Dose Admin Cefazolin Sodium 2000 mg/Sterile Water 10 ml @ 200 mls/hr ONCE ONCE IV 07/07/20 21:00 07/07/20 21:02 DC 07/07/20 21:56 200 MLS/HR Lidocaine HCl 20 ml STK-MED ONCE .ROUTE 07/07/20 20:55 07/07/20 21:00 DC 07/07/20 21:56 20 ML Vital Signs/I&O 07/07/20 20:39 Temp 37.7 Pulse 111 Resp 19 B/P (MAP) 152/105 (121) O2 Delivery Room Air Progress Progress Note : Time: 21:48 Progress Note Patient does have a fractured tooth a proximal portion of the fifth toe. Patient also does have a laceration distally to that. Consider open fracture. Did give patient 2 g Ancef prepared wound with 4 sutures. Neosporin and linda taping. Patient also be placed in a surgical shoe. Patient will follow-up with orthopedics as instructed. Departure Impression Primary Impression: Open fracture of toe of right foot Additional Impression: History of seizures Disposition: HOME, SELF-CARE Condition: Stable Departure-Patient Inst. Decision time for Depature: 21:50 Referrals: LIZZ HENRIQUEZ DO (PCP/Family) Primary Care Physician DEONNA ABARCA MD Add. Discharge Instructions: Rest ice elevation. Antibiotic ointment [id number] as instructed. Take all oral medications as written. Follow-up with orthopedics as instructed. Take hydrocodone that she had been prescribed by your PCP at home for pain. All discharge instructions reviewed with patient and/or family. Voiced understanding. Scripts Cephalexin (Cephalexin) 500 Mg Tablet 500 MG PO BID, #14 TAB 0 Refills Prov: CASH SARGENT MD 07/07/20 CASH SARGENT MD Jul 07, 2020 20:45
[2020-07-07] MEDS ORDERED: LIDOCAINE 1% INJ 20 ML 20 ML VIAL ONE (20:55)
[2020-07-07] MEDS ORDERED: ceFAZolin INJECTION 2,000 MG in WATER (STERILE) FOR INJECTION 10 ML IV ONE (21:00)
--- NOTE | 2020-07-07 21:10 | Diagnostic Imaging Report ---
INDICATION: Right foot pain, injury. COMPARISON: None. FINDINGS: Three views of the right foot demonstrate nondisplaced fracture of the proximal phalanx of the 5th digit. There is no intra-articular involvement. There was no unexpected radiopaque foreign body. IMPRESSION: 5th digit fracture. Dictated by: Dictated on workstation # [id number]
[2020-07-07 21:30] LABS: BASOPHILS # (AUTO) 0.1 10^3/uL (0.0-0.1); BASOPHILS % (AUTO) 1 % (0-10); EOSINOPHILS # (AUTO) 0.2 10^3/uL (0.0-0.3); EOSINOPHILS % (AUTO) 2 % (0-10); HEMATOCRIT 44 % (35-52); HEMOGLOBIN 14.5 G/DL (11.5-16.0); LYMPHOCYTES # (AUTO) 3.8 X 10^3 (1.0-4.0); LYMPHOCYTES % (AUTO) 25 % (12-44); MEAN CORPUSCULAR HEMOGLOBIN 30 PG (25-34); MEAN CORPUSCULAR HGB CONC 33 G/DL (32-36); MEAN CORPUSCULAR VOLUME 91 FL (80-99); MEAN PLATELET VOLUME 10.1 FL (7.4-10.4); MONOCYTES # (AUTO) 0.9 X 10^3 (0.0-1.0); MONOCYTES % (AUTO) 6 % (0-12); NEUTROPHILS # (AUTO) 10.3 X 10^3 (1.8-7.8); NEUTROPHILS % (AUTO) 67 % (42-75); PLATELET COUNT 240 10^3/uL (130-400); RED CELL DISTRIBUTION WIDTH 13.7 % (10.0-14.5); WHITE BLOOD COUNT 15.3 10^3/uL (4.3-11.0)
[2020-07-07 21:39] LABS: BUN/CREATININE RATIO 17; CALCIUM 9.7 MG/DL (8.5-10.1); CARBON DIOXIDE 25 MMOL/L (21-32); CHLORIDE 103 MMOL/L (98-107); CREATININE SERUM 0.92 MG/DL (0.60-1.30); GFR ESTIMATED > 60; GLUCOSE 198 MG/DL (70-105); POTASSIUM 4.1 MMOL/L (3.6-5.0); SODIUM 139 MMOL/L (135-145)
[2020-07-07 21:53] LABS: BAND NEUTROPHILS 6 %; BASOPHILS % (MANUAL) 0 %; EOSINOPHILS % (MANUAL) 2 %; LYMPHOCYTES % (MANUAL) 25 %; MONOCYTES % (MANUAL) 2 %; NEUTROPHILS % (MANUAL) 65 %; RBC MORPH NORMAL
[2020-07-07] MEDS ORDERED: CEPH500T PO (21:53)
--- NOTE | 2020-07-07 22:20 | NUR ---
[facility] OP SHOE PLACED ON PT.
[2020-07-07 22:24] VITALS: BP 139/78
== END 2020-07-07 22:24 | disposition home or self-care (01) ==
LOC: EDUNIT# 20:19 → ER FS 20:20
DX: S92.351B Displaced fracture of fifth metatarsal bone, right foot, initial encounter for open fracture (principal); G40.909 Epilepsy, unspecified, not intractable, without status epilepticus; Z88.6 Allergy status to analgesic agent; Z88.5 Allergy status to narcotic agent; W22.8XXA Striking against or struck by other objects, initial encounter
CPT/HCPCS: 12041; 36415; 73630; 80048; 85007; 85027

== ENCOUNTER 2020-11-27 12:03 | Emergency (ER) | payer MEDICARE, MEDICAID ==
[~2020-11-27 12:03] MED LIST changes: +CEPH500T PO
[2020-11-27] MEDS ORDERED: NS 100 ML (IVPB) BAG IV ONE (12:30)
[2020-11-27] MEDS ORDERED: HOLD METFORMIN - RECEIVED CONTRAST 20 ML VIAL IV SCH (12:30)
[2020-11-27] MEDS ORDERED: KETOROLAC 30 MG/ML VIAL IVP ONE (12:30)
[2020-11-27] MEDS ORDERED: CATHETER FLUSH 10 ML SYR IV PRN (12:30)
[2020-11-27] MEDS ORDERED: fentaNYL INJECTION 100 MCG/2 ML AMP IVP ONE ×2 (12:30→15:15)
[2020-11-27] MEDS ORDERED: IOHEXOL 350 MG/ML 100 ML (OMNIPAQUE 350) VIAL IV ONE (12:30)
--- NOTE | 2020-11-27 12:36 | ED General ---
General Chief Complaint: Trauma-Non Activation Stated Complaint: FALL; LT SIDE/BACK INJ Nursing Triage Note: had seizure and fell in shower Nursing Sepsis Screen: No Definite Risk History of Present Illness Date Seen by Provider: Nov 27, 2020 Time Seen by Provider: 12:36 Initial Comments Patient presenting to the emergency department for evaluation of left lower rib pain and left upper quadrant abdominal pain that radiates towards her back that started last night at approximate 5 PM after having a seizure. She has been seen multiple times for complications related to her seizures in the past and says that she has been compliant with her seizure medications but she does have seizures frequently. She said she was in the shower when she had her seizure and does not know exactly how she fell but she says it hurts to move her torso and take deep breaths. She is in no obvious distress with normal vital signs. Allergies and Home Medications Allergies Coded Allergies: acetaminophen (Verified Allergy, Unknown, blisters inside mouth, 03/22/16) aspirin (Verified Allergy, Unknown, interferes with seizure med, 03/22/16) codeine (Verified Allergy, Unknown, blisters inside mouth, 03/22/16) Home Medications Calcium Carbonate/Vitamin D3 1 Each Tablet, 1 EACH PO TID, (Reported) Carvedilol 6.25 Mg Tablet, 6.25 MG PO DAILY, (Reported) Carvedilol 6.25 Mg Tablet, 3.125 MG PO HS, (Reported) TAKE 1/2 OF 6.25MG TAB Cephalexin 500 Mg Tablet, 500 MG PO BID Prescribed by: CASH SARGENT on 07/07/202152 Diphenhydramine HCl 25 Mg Capsule, 50 MG PO TAKE WITH HYDROCODON, (Reported) TAKE 2 (25MG) TABS WITH HYDROCODONE Folic Acid 0.4 Mg Tablet, 0.4 MG PO DAILY, (Reported) Hydrocodone Bit/Acetaminophen 1 Each Tablet, 1-2 EACH PO Q4H PRN for PAIN, (Reported) Hydrocodone/Acetaminophen 1 Each Tablet, 1-2 EACH PO Q4H PRN for PAIN Prescribed by: NUBIA ROBLES on 03/24/16 1008 Ibuprofen 800 Mg Tablet, 800 MG PO Q8H PRN for PAIN, (Reported) Lamotrigine 200 Mg Tab, 200 MG PO TID, (Reported) Melatonin/Pyridoxine 1 Each Tablet, 3 MG PO HS PRN for SLEEP, (Reported) Nitrofurantoin Monohyd/M-Cryst 100 Mg Capsule, 1 TAB PO BID Prescribed by: NUBIA ROBLES on 03/24/16 1008 Simethicone 125 Mg Capsule, 125 MG PO PRN PRN for GAS, (Reported) Simvastatin 20 Mg Tablet, 20 MG PO HS, (Reported) Topiramate 200 Mg Tablet, 200 MG PO TID, (Reported) Venlafaxine HCl 150 Mg Cap.er.24h, 150 MG PO DAILY, (Reported) Patient Home Medication List Home Medication List Reviewed: Yes Review of Systems Review of Systems Constitutional: no symptoms reported EENTM: no symptoms reported Respiratory: short of breath Cardiovascular: chest pain Gastrointestinal: abdominal pain (LUQ) Musculoskeletal: back pain Skin: no symptoms reported Psychiatric/Neurological: No Symptoms Reported All Other Systems Reviewed Negative Unless Noted: Yes Past Xoteqyl-Rtpzhm-Kfygau Hx Patient Social History Alcohol Use: Denies Use Recreational Drug Use: No Smoking Status: Current Everyday Smoker Type Used: Cigarettes 2nd Hand Smoke Exposure: No Recent Foreign Travel: No Contact w/Someone Who Travel: No Recent Infectious Disease Expo: No Recent Hopitalizations: No Physical Abuse: No Sexual Abuse: No Mistreated: No Fear: No Immunizations Up To Date Date of Pneumonia Vaccine: Nov 28, 2013 Seasonal Allergies Seasonal Allergies: No Past Medical History Surgeries: Yes (vagal nerve stimulator and battery changed x3 bilat lower leg fx, ) Respiratory: Yes COPD Cardiac: Yes (Tachycardia) Neurological: Yes (Grand mal) Headaches /Migraines, Seizure Disorder Reproductive Disorders: No Sexually Transmitted Disease: No Genitourinary: Yes Kidney Stones Gastrointestinal: No Musculoskeletal: No (bilat ankle fx and huston fx's) Arthritis, Fractures Endocrine: No HEENT: Yes Hearing Impairment: Hard of Hearing Cancer: No Psychosocial: No Integumentary: No Blood Disorders: No Physical Exam Vital Signs Vital Signs - First Documented 11/27/20 12:14 Temp 37.1 Pulse 101 Resp 22 B/P (MAP) 147/115 (126) Pulse Ox 99 Capillary Refill : Less Than 3 Seconds Height, Weight, BMI Height: 5'3.00" Weight: 191lbs. 2.0oz. 86.190620cg; 37.00 BMI Method: General Appearance: No Apparent Distress, WD/WN HEENT: PERRL/EOMI Neck: Supple Respiratory: Lungs Clear, No Respiratory Distress, Other (left anterior and lateral chest wall tenderness to palpation) Cardiovascular: Regular Rate, Rhythm Gastrointestinal: Soft, Tenderness (LUQ) Back: Normal Inspection Neurologic/Psychiatric: Alert, Oriented x3 Skin: Warm/Dry Procedures/Interventions Suture Size: 4-0 F5-2 Progress/Results/Core Measures Suspected Sepsis Recent Fever Within 48 Hours: No Infection Criteria Present: None New/Unexplained Altered Menta: No Sepsis Screen: No Definite Risk SIRS Temperature: Pulse: 101 Respiratory Rate: 22 Laboratory Tests 11/27/20 13:11: White Blood Count 9.9 Blood Pressure 147 /115 Mean: 126 Laboratory Tests 11/27/20 13:11: Creatinine 0.87, Platelet Count 229, Total Bilirubin 0.3 Results/Orders Lab Results Laboratory Tests Test 11/27/20 13:11 Range/Units White Blood Count 9.9 4.3-11.0 10^3/uL Red Blood Count 4.93 4.35-5.85 10^6/uL Hemoglobin 14.8 11.5-16.0 G/DL Hematocrit 45 35-52 % Mean Corpuscular Volume 91 80-99 FL Mean Corpuscular Hemoglobin 30 25-34 PG Mean Corpuscular Hemoglobin Concent 33 32-36 G/DL Red Cell Distribution Width 13.7 10.0-14.5 % Platelet Count 229 130-400 10^3/uL Mean Platelet Volume 10.4 7.4-10.4 FL Immature Granulocyte % (Auto) 1 % Neutrophils (%) (Auto) 58 42-75 % Lymphocytes (%) (Auto) 33 12-44 % Monocytes (%) (Auto) 7 0-12 % Eosinophils (%) (Auto) 2 0-10 % Basophils (%) (Auto) 1 0-10 % Neutrophils # (Auto) 5.7 1.8-7.8 X 10^3 Lymphocytes # (Auto) 3.2 1.0-4.0 X 10^3 Monocytes # (Auto) 0.7 0.0-1.0 X 10^3 Eosinophils # (Auto) 0.2 0.0-0.3 10^3/uL Basophils # (Auto) 0.1 0.0-0.1 10^3/uL Immature Granulocyte # (Auto) 0.1 0.0-0.1 10^3/uL Sodium Level 140 135-145 MMOL/L Potassium Level 4.0 3.6-5.0 MMOL/L Chloride Level 105 98-107 MMOL/L Carbon Dioxide Level 22 21-32 MMOL/L Anion Gap 13 5-14 MMOL/L Blood Urea Nitrogen 15 7-18 MG/DL Creatinine 0.87 0.60-1.30 MG/DL Estimat Glomerular Filtration Rate > 60 BUN/Creatinine Ratio 17 Glucose Level 121 H 70-105 MG/DL Calcium Level 9.7 8.5-10.1 MG/DL Corrected Calcium 9.6 8.5-10.1 MG/DL Total Bilirubin 0.3 0.1-1.0 MG/DL Aspartate Amino Transf (AST/SGOT) 24 5-34 U/L Alanine Aminotransferase (ALT/SGPT) 24 0-55 U/L Alkaline Phosphatase 127 40-136 U/L Total Protein 7.5 6.4-8.2 GM/DL Albumin 4.1 3.2-4.5 GM/DL My Orders Orders - JAYDEN FLORES DO Iv/Invasive Line Insertion .IV start (11/27/20 12:25) Cbc With Automated Diff (11/27/20 12:25) Comprehensive Metabolic Panel (11/27/20 12:25) Ct Chest/Abdomen/Pelvis W (11/27/20 12:25) Ketorolac Injection (Toradol Injection) (11/27/20 12:30) Fentanyl Injection (Sublimaze Injection (11/27/20 12:30) Iohexol Injection (Omnipaque 350 Mg/Ml 1 (11/27/20 12:30) Received Contrast (Hold Metformin- Contr (11/27/20 12:30) Sodium Chloride Flush (Catheter Flush Sy (11/27/20 12:30) Ns (Ivpb) (Sodium Chloride 0.9% Ivpb Bag (11/27/20 12:30) Fentanyl Injection (Sublimaze Injection (11/27/20 15:15) Medications Given in ED Current Medications Medications Dose Ordered Sig/Alisia Route Start Time Stop Time Status Last Admin Dose Admin Fentanyl Citrate 50 mcg ONCE ONCE IVP 11/27/20 12:30 11/27/20 12:31 DC 11/27/20 13:07 50 MCG Iohexol 100 ml ONCE ONCE IV 11/27/20 12:30 11/27/20 12:32 DC 11/27/20 14:20 100 ML Ketorolac Tromethamine 15 mg ONCE ONCE IVP 11/27/20 12:30 11/27/20 12:31 DC 11/27/20 13:07 15 MG Sodium Chloride 10 ml NEEDED PRN IV 11/27/20 12:30 11/27/20 14:20 10 ML Sodium Chloride 100 ml ONCE ONCE IV 11/27/20 12:30 11/27/20 12:32 DC 11/27/20 14:20 100 ML Vital Signs/I&O 11/27/20 12:14 Temp 37.1 Pulse 101 Resp 22 B/P (MAP) 147/115 (126) Pulse Ox 99 Capillary Refill : Less Than 3 Seconds Blood Pressure Mean: 126 Progress Note : Progress Note Patient with traumatic left rib and abdominal pain so I will check labs imaging treat symptoms and reassess. Patient's pain improved and thankfully patient had no signs of acute intrathoracic or intra-abdominal trauma. All and subtle findings were discussed and the need for follow-up and she was told to take plenty of deep breaths and take ibuprofen for pain and oxycodone for breakthrough pain follow primary care provider next week and come back to the ED sooner with worsening pain shortness of breath with or general concerns. Patient aware and agreeable with plan and verbalized understanding of the above instructions. Departure Impression Primary Impression: Contusion of rib on left side Qualified Codes: S20.212A - Contusion of left front wall of thorax, initial encounter Additional Impression: Abdominal pain Disposition: HOME, SELF-CARE Condition: Stable Departure-Patient Inst. Referrals: LIZZ HENRIQUEZ DO (PCP/Family) Primary Care Physician Patient Instructions: Bruised Rib (DC) Scripts Oxycodone Hcl (OXYIR TABLET) 5 Mg Tab 5 MG PO Q8H PRN for PAIN-SEVERE (8-10), #9 TAB Prov: JAYDEN FLORES DO 11/27/20 Ibuprofen (Ibuprofen) 600 Mg Tablet 600 MG PO Q6H PRN for PAIN-MILD for 7 Days, TAB Prov: JAYDEN FLORES DO 11/27/20 JAYDEN FLORES DO Nov 27, 2020 12:36
[2020-11-27 13:43] LABS: BASOPHILS % (AUTO) 1 % (0-10); EOSINOPHILS % (AUTO) 2 % (0-10); HEMATOCRIT 45 % (35-52); HEMOGLOBIN 14.8 G/DL (11.5-16.0); LYMPHOCYTES # (AUTO) 3.2 X 10^3 (1.0-4.0); LYMPHOCYTES % (AUTO) 33 % (12-44); MEAN CORPUSCULAR HEMOGLOBIN 30 PG (25-34); MEAN CORPUSCULAR HGB CONC 33 G/DL (32-36); MEAN CORPUSCULAR VOLUME 91 FL (80-99); MEAN PLATELET VOLUME 10.4 FL (7.4-10.4); MONOCYTES % (AUTO) 7 % (0-12); NEUTROPHILS # (AUTO) 5.7 X 10^3 (1.8-7.8); NEUTROPHILS % (AUTO) 58 % (42-75); PLATELET COUNT 229 10^3/uL (130-400); WHITE BLOOD COUNT 9.9 10^3/uL (4.3-11.0)
[2020-11-27 13:44] LABS: BASOPHILS # (AUTO) 0.1 10^3/uL (0.0-0.1); EOSINOPHILS # (AUTO) 0.2 10^3/uL (0.0-0.3); MONOCYTES # (AUTO) 0.7 X 10^3 (0.0-1.0)
[2020-11-27 14:00] LABS: ALKALINE PHOSPHATASE 127 U/L (40-136); BILIRUBIN,TOTAL 0.3 MG/DL (0.1-1.0); BUN/CREATININE RATIO 17; CALCIUM 9.7 MG/DL (8.5-10.1); CARBON DIOXIDE 22 MMOL/L (21-32); CHLORIDE 105 MMOL/L (98-107); CREATININE SERUM 0.87 MG/DL (0.60-1.30); GFR ESTIMATED > 60; GLUCOSE 121 MG/DL (70-105); SODIUM 140 MMOL/L (135-145)
[2020-11-27 14:01] LABS: ALANINE AMINOTRANSFERASE 24 U/L (0-55); ALBUMIN 4.1 GM/DL (3.2-4.5); TOTAL PROTEIN 7.5 GM/DL (6.4-8.2)
--- NOTE | 2020-11-27 14:49 | Diagnostic Imaging Report ---
EXAMINATION: CT Chest, Abdomen and Pelvis with intravenous contrast. TECHNIQUE: Multiple contiguous axial images were obtained through the chest, abdomen and pelvis after the uneventful administration of intravenous contrast. All CT scans use one or more of the following dose optimizing techniques: automated exposure control, MA and/or KvP adjustment based on a patient size and exam type, or iterative reconstruction. HISTORY: L lower rib pain, soa, LUQ abd pain s/p fall yesterday COMPARISON: CT chest 01/09/2019. FINDINGS: Thyroid: The visualized thyroid gland is normal. Mediastinum: Heart size is normal without significant pericardial effusion. The aorta is normal in caliber. No suspicious lymphadenopathy. Lungs and airways: The lungs are clear without consolidation, pleural effusion, or pneumothorax. Bibasilar dependent atelectasis. Calcified granuloma within the left lung base. The airways are normal. Solid organs: The liver is normal without focal lesion. The gallbladder is normal. There is no biliary ductal dilation. Pancreas is normal. Multiple calcified granulomas within the spleen. Adrenal glands are normal. There is right renal cortical scarring. No hydronephrosis. Bowel: The stomach and small bowel are normal without obstruction. The colon and appendix are normal. Peritoneum: There is no intraperitoneal free fluid or free air. No suspicious lymphadenopathy. Vasculature: Calcification of the aorta without aneurysm. Left-sided cardiac pacemaker is present. Musculoskeletal: No suspicious osseous lesion or compression fracture. No other acute fracture is seen. Pelvis: The uterus and adnexa are normal. The urinary bladder is normal. IMPRESSION: 1. No acute abnormality in the chest, abdomen, or pelvis. Dictated by: Dictated on workstation # [id number]
[2020-11-27] MEDS ORDERED: OXC5T PO (15:10)
[2020-11-27] MEDS ORDERED: IBUP-1773 PO (15:10)
[2020-11-27 15:26] VITALS: BP 118/88
== END 2020-11-27 15:26 | disposition home or self-care (01) ==
LOC: EDUNIT# 12:03 → ER FS 12:05
DX: S20.212A Contusion of left front wall of thorax, initial encounter (principal); R10.12 Left upper quadrant pain; G40.909 Epilepsy, unspecified, not intractable, without status epilepticus; F17.210 Nicotine dependence, cigarettes, uncomplicated; Z88.5 Allergy status to narcotic agent; Z88.6 Allergy status to analgesic agent; Z88.8 Allergy status to other drugs, medicaments and biological substances; X58.XXXA Exposure to other specified factors, initial encounter
CPT/HCPCS: 36415; 71260; 74177; 80053; 85025

== ENCOUNTER 2021-07-01 17:31 | Emergency (ER) | payer MEDICARE, MEDICAID ==
[~2021-07-01] VITALS: Ht 160 cm; Wt 95.0 kg
[~2021-07-01 17:31] MED LIST changes: -FOLI0.4T2 PO; +FOLI0.4T6 PO; +IBUP-1773 PO; +OXC5T PO
[2021-07-01 17:32] VITALS: BP 142/76
[2021-07-01] MEDS ORDERED: KETOROLAC 30 MG/ML VIAL IVP STA (17:43)
--- NOTE | 2021-07-01 18:00 | ED General ---
General Chief Complaint: General Problems/Pain Stated Complaint: RT ARM/MID-BACK PAIN Nursing Triage Note: PT REPORTS RIGHT ARM PAIN WITH MOVEMENT FOR 2 DAYS. UPPER BACK PAIN OFF AND ON FOR 2 DAYS. SHE HAS BEEN READING THE INTERNET AND THOUGHT SHE MIGHT HAVE HAD A HEART ATTACK WITH THESE SYMPTOMS. Source of Information: Patient History of Present Illness Date Seen by Provider: Jul 01, 2021 Time Seen by Provider: 17:34 Initial Comments 51-year-old female presenting with complaints of right arm pain with movement, upper back pain and epigastric and right upper quadrant pain for a few days. She had looked online and thought that she was having a heart attack. She has no nausea, vomiting, sweating, increased shortness of breath, fever, chills, pain with urination, increased cough from her baseline. She denies any fall or trauma to cause the symptoms. They seem to be worse with activity and movement but otherwise nothing seemed to make them worse. She felt like rest seem to help a little bit. Since it was going on for few days and she was having more pain in the right arm today she decided to come to the emergency department to make sure she was not having a heart attack. Timing/Duration: 2-3 Days Severity: Moderate Modifying Factors: worse with Movement Associated Systoms: No Chest Pain; Cough (Chronic from COPD and not worse than usual); No Diaphoresis, No Fever/Chills, No Headaches, No Loss of Appetite, No Malaise, No Nausea/Vomiting, No Rash, No Seizure; Shortness of Air (chronic from COPD and not worse than usual); No Syncope, No Weakness Allergies and Home Medications Allergies Coded Allergies: acetaminophen (Verified Allergy, Unknown, blisters inside mouth, 03/22/16) aspirin (Verified Allergy, Unknown, interferes with seizure med, 03/22/16) codeine (Verified Allergy, Unknown, blisters inside mouth, 03/22/16) Home Medications Calcium Carbonate/Vitamin D3 1 Each Tablet, 1 EACH PO TID, (Reported) Carvedilol 6.25 Mg Tablet, 6.25 MG PO DAILY, (Reported) Carvedilol 6.25 Mg Tablet, 3.125 MG PO HS, (Reported) TAKE 1/2 OF 6.25MG TAB Cephalexin 500 Mg Tablet, 500 MG PO BID Prescribed by: CASH SAGRENT on 07/07/20 0734 Diphenhydramine HCl 25 Mg Capsule, 50 MG PO TAKE WITH HYDROCODON, (Reported) TAKE 2 (25MG) TABS WITH HYDROCODONE Folic Acid 0.4 Mg Tablet, 0.4 MG PO DAILY, (Reported) Hydrocodone Bit/Acetaminophen 1 Each Tablet, 1-2 EACH PO Q4H PRN for PAIN, (Reported) Hydrocodone/Acetaminophen 1 Each Tablet, 1-2 EACH PO Q4H PRN for PAIN Prescribed by: NUBIA ROBLES on 03/24/16 100 Ibuprofen 800 Mg Tablet, 800 MG PO Q8H PRN for PAIN, (Reported) Ibuprofen 600 Mg Tablet, 600 MG PO Q6H PRN for PAIN-MILD Prescribed by: JAYDEN FLORES on 11/27/20 1510 Lamotrigine 200 Mg Tab, 200 MG PO TID, (Reported) Melatonin/Pyridoxine 1 Each Tablet, 3 MG PO HS PRN for SLEEP, (Reported) Nitrofurantoin Monohyd/M-Cryst 100 Mg Capsule, 1 TAB PO BID Prescribed by: NUBIA ROBLES on 03/24/16 100 Oxycodone Hcl 5 Mg Tab, 5 MG PO Q8H PRN for PAIN-SEVERE (8-10) Prescribed by: JAYDEN FLORES on 11/27/20 1510 Simethicone 125 Mg Capsule, 125 MG PO PRN PRN for GAS, (Reported) Simvastatin 20 Mg Tablet, 20 MG PO HS, (Reported) Topiramate 200 Mg Tablet, 200 MG PO TID, (Reported) Venlafaxine HCl 150 Mg Cap.er.24h, 150 MG PO DAILY, (Reported) Patient Home Medication List Home Medication List Reviewed: Yes Review of Systems Review of Systems Constitutional: No chills, No diaphoresis, No fever EENTM: no symptoms reported Respiratory: see HPI Cardiovascular: see HPI Gastrointestinal: see HPI, abdominal pain (epigastric and RUQ); No nausea, No vomiting Genitourinary: no symptoms reported; No dysuria Musculoskeletal: see HPI Skin: No rash Psychiatric/Neurological: Denies Numbness, Denies Paresthesia Past Gwnndxx-Dfvnaf-Kllevl Hx Patient Social History Tobacco Use?: Yes Tobacco type used: Cigarettes Smoking Status: Current Everyday Smoker Use of E-Cig and/or Vaping dev: No Substance use?: No Alcohol Use?: No Pt feels they are or have been: No Seasonal Allergies Seasonal Allergies: No Past Medical History Surgery/Hospitalization HX: Surgeries: Yes (vagal nerve stimulator and battery changed x3 bilat lower leg fx, ) Respiratory: Yes COPD Cardiac: Yes (Tachycardia) Neurological: Yes (Grand mal) Headaches /Migraines, Seizure Disorder Reproductive Disorders: No Sexually Transmitted Disease: No Genitourinary: Yes Kidney Stones Gastrointestinal: No Musculoskeletal: No (bilat ankle fx and huston fx's) Arthritis, Fractures Endocrine: No HEENT: Yes Hearing Impairment: Hard of Hearing Cancer: No Psychosocial: No Integumentary: No Blood Disorders: No Physical Exam Vital Signs Vital Signs - First Documented 07/01/21 17:32 Temp 35.6 Pulse 105 Resp 20 B/P (MAP) 142/76 (98) Pulse Ox 100 O2 Delivery Room Air Capillary Refill : Less Than 3 Seconds Height, Weight, BMI Height: 5'3.00" Weight: 191lbs. 2.0oz. [id number]; 37.00 BMI Method: General Appearance: No Apparent Distress HEENT: PERRL/EOMI, Pharynx Normal, Other (hard of hearing) Neck: Full Range of Motion, Normal Inspection, Non Tender, Supple Respiratory: Chest Non Tender, Lungs Clear, Normal Breath Sounds, No Accessory Muscle Use, No Respiratory Distress Cardiovascular: Regular Rate, Rhythm, Normal Peripheral Pulses Gastrointestinal: Normal Bowel Sounds, No Pulsatile Mass, Soft; No Distended, No Guarding, No Rebound; Tenderness (mild tenderness to palpation of epigastric and RUQ) Extremity: Normal Capillary Refill, Normal Inspection, No Pedal Edema, Other (some tenderness to palpation and movement of RUE/bicep area) Neurologic/Psychiatric: Alert, Oriented x3, trimmer machine II-XII Norm as Tested Skin: Normal Color, Warm/Dry; No Rash Procedures/Interventions Suture Size: 4-0 F5-2 Progress/Results/Core Measures Suspected Sepsis SIRS Temperature: Pulse: 105 Respiratory Rate: 20 Laboratory Tests 07/01/21 17:50: White Blood Count 12.7H Blood Pressure 142 /76 Mean: 98 Laboratory Tests 07/01/21 17:50: Creatinine 0.80, INR Comment 0.9, Platelet Count 133, Total Bilirubin 0.2 Results/Orders Lab Results Laboratory Tests Test 07/01/21 17:50 Range/Units White Blood Count 12.7 H 4.3-11.0 10^3/uL Red Blood Count 5.49 4.35-5.85 10^6/uL Hemoglobin 16.3 H 11.5-16.0 G/DL Hematocrit 49 35-52 % Mean Corpuscular Volume 88 80-99 FL Mean Corpuscular Hemoglobin 30 25-34 PG Mean Corpuscular Hemoglobin Concent 34 32-36 G/DL Red Cell Distribution Width 13.8 10.0-14.5 % Platelet Count 133 130-400 10^3/uL Mean Platelet Volume 12.4 H 7.4-10.4 FL Immature Granulocyte % (Auto) 0 % Neutrophils (%) (Auto) 56 42-75 % Lymphocytes (%) (Auto) 35 12-44 % Monocytes (%) (Auto) 7 0-12 % Eosinophils (%) (Auto) 1 0-10 % Basophils (%) (Auto) 1 0-10 % Neutrophils # (Auto) 7.1 1.8-7.8 X 10^3 Lymphocytes # (Auto) 4.5 H 1.0-4.0 X 10^3 Monocytes # (Auto) 0.9 0.0-1.0 X 10^3 Eosinophils # (Auto) 0.2 0.0-0.3 10^3/uL Basophils # (Auto) 0.1 0.0-0.1 10^3/uL Immature Granulocyte # (Auto) 0.0 0.0-0.1 10^3/uL Neutrophils % (Manual) 51 % Lymphocytes % (Manual) 27 % Monocytes % (Manual) 8 % Band Neutrophils 4 % Atypical Lymphocytes 10 % Blood Morphology Comment NORMAL Prothrombin Time 12.9 12.2-14.7 SEC INR Comment 0.9 0.8-1.4 Activated Partial Thromboplast Time 29 24-35 SEC Sodium Level 139 135-145 MMOL/L Potassium Level 3.8 3.6-5.0 MMOL/L Chloride Level 104 98-107 MMOL/L Carbon Dioxide Level 21 21-32 MMOL/L Anion Gap 14 5-14 MMOL/L Blood Urea Nitrogen 11 7-18 MG/DL Creatinine 0.80 0.60-1.30 MG/DL Estimat Glomerular Filtration Rate 76 BUN/Creatinine Ratio 14 Glucose Level 102 70-105 MG/DL Calcium Level 9.6 8.5-10.1 MG/DL Corrected Calcium 9.5 8.5-10.1 MG/DL Magnesium Level 2.4 1.6-2.4 MG/DL Total Bilirubin 0.2 0.1-1.0 MG/DL Aspartate Amino Transf (AST/SGOT) 16 5-34 U/L Alanine Aminotransferase (ALT/SGPT) 22 0-55 U/L Alkaline Phosphatase 163 H 40-136 U/L Troponin I < 0.30 <0.30 NG/ML Pro-B-Type Natriuretic Peptide 76.7 H <75.0 PG/ML Total Protein 7.8 6.4-8.2 GM/DL Albumin 4.1 3.2-4.5 GM/DL Lipase 78 8-78 U/L My Orders Orders - JEREMIAH HOPE MD Cbc With Automated Diff (07/01/21 17:43) Magnesium (07/01/21 17:43) Chest 1 View Ap/Pa Only (07/01/21 17:43) Ekg Tracing (07/01/21 17:43) Comprehensive Metabolic Panel (07/01/21 17:43) Protime With Inr (07/01/21 17:43) Partial Thromboplastin Time (07/01/21 17:43) O2 (07/01/21 17:43) Monitor-Rhythm Ecg Trace Only (07/01/21 17:43) Ed Iv/Invasive Line Start (07/01/21 17:43) Lipase (07/01/21 17:43) Troponin I Fs (07/01/21 17:43) Probnp Fs (07/01/21 17:43) Ketorolac Injection (Toradol Injection) (07/01/21 17:43) Manual Differential (07/01/21 17:50) Vital Signs/I&O 07/01/21 17:32 Temp 35.6 Pulse 105 Resp 20 B/P (MAP) 142/76 (98) Pulse Ox 100 O2 Delivery Room Air Capillary Refill : Less Than 3 Seconds Blood Pressure Mean: 98 Progress Note #1: Progress Note check labs, CXR, ECG. Give fluid with toradol for pain. Progress Note #2: Progress Note No acute ST elevation or ischemic changes on EKG. Chest x-ray appears stable without infiltrate or effusion. The labs show no elevation of the white blood cell count. She does have a left shift for white blood cells. Chemistry panel does not show any acute significant anomaly. The coags are normal. Cardiac enzymes are negative for ACS or SD after 2 days of symptoms. Will have her check with pcp and continue on regular medicines for muscle strain. Consider following a low fat diet and may need study to check gallbladder or stomach, especially if symptoms persist. ECG Initial ECG Impression Date: Jul 01, 2021 Initial ECG Impression Time: 17:51 Initial ECG Rate: 100 Initial ECG Rhythm: S.Tach Initial ECG Comparisson: No Previous ECG Available Comment Sinus tachycardia with 100 bpm. SC interval 164 ms. QT interval 351 ms with a QTc interval [address] elevation. No prior tracing available for comparison. Diagnostic Imaging Diagonstic Imaging: Xray Plain Films/CT/US/NM/MRI: chest Comments [facility] [place], [place] NAME: RAJIV BANEGAS [facility] REC#: [id number] PT STATUS: REG ER : 1970 PHYSICIAN: JEREMIAH HOPE MD ADMIT DATE: 07/01/21/ER FS Draft Date of Exam:07/01/21 CHEST 1 VIEW AP/PA ONLY INDICATION: Right arm and chest pain. EXAMINATION: Portable chest 6:06 p.m. Heart size and pulmonary vascularity are normal. Lungs are clear. There is no effusion or pneumothorax. IMPRESSION: No acute abnormality in the chest. Dictated on workstation # [id number] Dict: 07/01/21 1823 Trans: 07/01/21 1826 [facility] [id number] Interpreted by: MAGI MARTINEZ MD Electronically signed by: Reviewed: Reviewed by Me Departure Impression Primary Impression: Upper abdominal pain Additional Impression: Pain in right upper arm Disposition: 01 HOME, SELF-CARE Condition: Stable Departure-Patient Inst. Decision time for Depature: 18:45 Referrals: LIZZ HENRIQUEZ DO (PCP/Family) Primary Care Physician Patient Instructions: Abdominal Pain, Adult ED, Gallbladder Diet, Muscle and Bone Pain (DC) Add. Discharge Instructions: Try following a low fat/bland diet. You may need to check with Dr. Henriquez for continued symptoms to see if you need ultrasound of gallbladder or scope of stomach to look for ulcer. All discharge instructions reviewed with patient and/or family. Voiced understanding. JEREMIAH HOPE MD Jul 01, 2021 17:59
--- NOTE | 2021-07-01 18:26 | Diagnostic Imaging Report ---
INDICATION: Right arm and chest pain. EXAMINATION: Portable chest 6:06 p.m. Heart size and pulmonary vascularity are normal. Lungs are clear. There is no effusion or pneumothorax. IMPRESSION: No acute abnormality in the chest. Dictated by: Dictated on workstation # [id number]
[2021-07-01 18:35] LABS: BASOPHILS # (AUTO) 0.1 10^3/uL (0.0-0.1); BASOPHILS % (AUTO) 1 % (0-10); EOSINOPHILS # (AUTO) 0.2 10^3/uL (0.0-0.3); EOSINOPHILS % (AUTO) 1 % (0-10); HEMATOCRIT 49 % (35-52); HEMOGLOBIN 16.3 G/DL (11.5-16.0); LYMPHOCYTES # (AUTO) 4.5 X 10^3 (1.0-4.0); LYMPHOCYTES % (AUTO) 35 % (12-44); MEAN CORPUSCULAR HEMOGLOBIN 30 PG (25-34); MEAN CORPUSCULAR HGB CONC 34 G/DL (32-36); MEAN CORPUSCULAR VOLUME 88 FL (80-99); MEAN PLATELET VOLUME 12.4 FL (7.4-10.4); MONOCYTES # (AUTO) 0.9 X 10^3 (0.0-1.0); MONOCYTES % (AUTO) 7 % (0-12); NEUTROPHILS # (AUTO) 7.1 X 10^3 (1.8-7.8); NEUTROPHILS % (AUTO) 56 % (42-75); PLATELET COUNT 133 10^3/uL (130-400); WHITE BLOOD COUNT 12.7 10^3/uL (4.3-11.0)
[2021-07-01 18:36] LABS: ATYPICAL LYMPHOCYTES 10 %; BAND NEUTROPHILS 4 %; LYMPHOCYTES % (MANUAL) 27 %; MONOCYTES % (MANUAL) 8 %; NEUTROPHILS % (MANUAL) 51 %; RBC MORPH NORMAL
[2021-07-01 18:37] LABS: INR 0.9 (0.8-1.4); PROTHROMBIN TIME PATIENT 12.9 SEC (12.2-14.7)
[2021-07-01 18:38] LABS: ALBUMIN 4.1 GM/DL (3.2-4.5); BILIRUBIN,TOTAL 0.2 MG/DL (0.1-1.0); CALCIUM 9.6 MG/DL (8.5-10.1); CREATININE SERUM 0.8 MG/DL (0.60-1.30); MAGNESIUM 2.4 MG/DL (1.6-2.4); POTASSIUM 3.8 MMOL/L (3.6-5.0); TOTAL PROTEIN 7.8 GM/DL (6.4-8.2)
== END 2021-07-01 18:49 | disposition home or self-care (01) ==
LOC: EDUNIT# 17:31 → ER FS 17:33
DX: R10.13 Epigastric pain (principal); R10.11 Right upper quadrant pain; M79.621 Pain in right upper arm; J44.9 Chronic obstructive pulmonary disease, unspecified; G40.909 Epilepsy, unspecified, not intractable, without status epilepticus; F17.210 Nicotine dependence, cigarettes, uncomplicated; Z79.899 Other long term (current) drug therapy
CPT/HCPCS: 36415; 71045; 80053; 83690; 83735; 83880; 84484; 85007; 85027; 85610; 85730; 93005; 93041

== ENCOUNTER 2021-11-18 13:02 | Emergency (ER) | payer MEDICARE, MEDICAID ==
[~2021-11-18] VITALS: Ht 160 cm; Wt 83.9 kg
[2021-11-18] MEDS ORDERED: KETOROLAC 30 MG/ML VIAL IVP STA (13:38)
[2021-11-18] MEDS ORDERED: diphenhydrAMINE 50 MG/ML INJ (BENADRYL) IVP STA (13:38)
--- NOTE | 2021-11-18 13:41 | ED General ---
General Chief Complaint: General Problems/Pain Stated Complaint: SEIZURE,HEAD INJ Source of Information: Patient History of Present Illness Date Seen by Provider: Nov 18, 2021 Time Seen by Provider: 13:11 Initial Comments 51-year-old female with a seizure history that presents complaining of right- sided migraine headache and right-sided arm pain and bruising since hitting it during a seizure. She has chronic migraine headaches and had hit her head landed she had a seizure on Tuesday and again earlier this week. She also had hit her right arm when she had her seizure. She is still able to use her arm and still able to move. She denies having any nausea or vomiting but has been having diarrhea. She has been having some cough and shortness of breath as well. She has had no fever or chills. Timing/Duration: 4-5 Days Severity: Moderate Modifying Factors: worse with Medication Associated Systoms: No Chest Pain, No Cough, No Diaphoresis, No Fever/Chills; Headaches; No Loss of Appetite, No Malaise, No Seizure, No Shortness of Air, No Syncope Allergies and Home Medications Allergies Coded Allergies: acetaminophen (Verified Allergy, Unknown, blisters inside mouth, 03/22/16) aspirin (Verified Allergy, Unknown, interferes with seizure med, 03/22/16) codeine (Verified Allergy, Unknown, blisters inside mouth, 03/22/16) Patient Home Medication List Home Medication List Reviewed: Yes Calcium Carbonate/Vitamin D3 (Calcium 600 + Vit D3 800 Tab) 1 Each Tablet, 1 EACH PO TID, (Reported) Entered as Reported by: UNRULY LICONA on 03/22/16 145 Carvedilol (Coreg) 6.25 Mg Tablet, 6.25 MG PO DAILY, (Reported) Entered as Reported by: UNRULY LICONA on 03/22/16 145 Carvedilol (Coreg) 6.25 Mg Tablet, 3.125 MG PO HS, (Reported) Entered as Reported by: UNRULY LICONA on 03/22/16 145 Cephalexin (Cephalexin) 500 Mg Tablet, 500 MG PO BID Prescribed by: CASH SARGENT on 07/07/202152 Diphenhydramine HCl (Benadryl) 25 Mg Capsule, 50 MG PO TAKE WITH HYDROCODON, (Reported) Entered as Reported by: UNRULY LICONA on 03/22/161452 Folic Acid (Folic Acid) 0.4 Mg Tablet, 0.4 MG PO DAILY, (Reported) Entered as Reported by: UNRULY LICONA on 03/22/161452 Hydrocodone Bit/Acetaminophen (Lortab 5 Mg Tablet) 1 Each Tablet, 1-2 EACH PO Q4H PRN for PAIN, (Reported) Entered as Reported by: UNRULY LICONA on 03/22/161452 Hydrocodone/Acetaminophen (Lorcet 5-325 mg Tablet) 1 Each Tablet, 1-2 EACH PO Q4H PRN for PAIN Prescribed by: NUBIA ROBLES on 03/24/16 100 Ibuprofen (Ibuprofen) 800 Mg Tablet, 800 MG PO Q8H PRN for PAIN, (Reported) Entered as Reported by: UNRULY LICONA on 03/22/161452 Ibuprofen (Ibuprofen) 600 Mg Tablet, 600 MG PO Q6H PRN for PAIN-MILD Prescribed by: JAYDEN FLORES on 11/27/201509 Lamotrigine (Lamictal) 200 Mg Tab, 200 MG PO TID, (Reported) Entered as Reported by: UNRULY LICONA on 03/22/161452 Melatonin/Pyridoxine (Melatonin 3 mg Tablet) 1 Each Tablet, 3 MG PO HS PRN for SLEEP, (Reported) Entered as Reported by: UNRULY LICONA on 03/22/161452 Nitrofurantoin Monohyd/M-Cryst (Macrobid 100 mg Capsule) 100 Mg Capsule, 1 TAB PO BID Prescribed by: NUBIA ROBLES on 03/24/16 100 Oxycodone Hcl (Oxyir Tablet) 5 Mg Tab, 5 MG PO Q8H PRN for PAIN-SEVERE (8-10) Prescribed by: JAYDEN FLORES on 11/27/20 151 Simethicone (Gas Relief) 125 Mg Capsule, 125 MG PO PRN PRN for GAS, (Reported) Entered as Reported by: UNRULY LICONA on 03/22/161452 Simvastatin (Zocor) 20 Mg Tablet, 20 MG PO HS, (Reported) Entered as Reported by: UNRULY LICONA on 03/22/161452 Topiramate (Topamax) 200 Mg Tablet, 200 MG PO TID, (Reported) Entered as Reported by: UNRULY LICONA on 03/22/16 145 Venlafaxine HCl (Effexor Xr) 150 Mg Cap.er.24h, 150 MG PO DAILY, (Reported) Entered as Reported by: UNRULY LICONA on 03/22/16 145 Review of Systems Review of Systems Constitutional: No chills EENTM: other (Right-sided headache) Respiratory: no symptoms reported Cardiovascular: no symptoms reported Gastrointestinal: no symptoms reported Genitourinary: no symptoms reported Musculoskeletal: other (pain and bruising to RUE) Skin: change in color (Bruising to right upper arm) Psychiatric/Neurological: Anxiety, Headache (Right-sided), Seizure Past Qbkjfhw-Iwvaoj-Haqhuo Hx Seasonal Allergies Seasonal Allergies: No Past Medical History Surgery/Hospitalization HX: , chronic seizures Surgeries: Yes (vagal nerve stimulator and battery changed x3 bilat lower leg fx, ) Respiratory: Yes COPD Cardiac: Yes (Tachycardia) Neurological: Yes (Grand mal) Headaches /Migraines, Seizure Disorder Reproductive Disorders: No Sexually Transmitted Disease: No Genitourinary: Yes Kidney Stones Gastrointestinal: No Musculoskeletal: No (bilat ankle fx and huston fx's) Arthritis, Fractures Endocrine: No HEENT: Yes Hearing Impairment: Hard of Hearing Cancer: No Psychosocial: No Integumentary: No Blood Disorders: No Physical Exam Vital Signs Vital Signs - First Documented 11/18/21 13:10 Temp 36.3 Pulse 96 Resp 16 B/P (MAP) 133/82 (99) Pulse Ox 98 O2 Delivery Room Air Capillary Refill : Height, Weight, BMI Height: 5'3.00" Weight: 191lbs. 2.0oz. 86.001137cr; 37.00 BMI Method: General Appearance: No Apparent Distress, Chronically ill HEENT: PERRL/EOMI, Pharynx Normal Neck: Full Range of Motion, Normal Inspection, Non Tender, Supple Respiratory: Chest Non Tender, Lungs Clear, Normal Breath Sounds, No Accessory Muscle Use, No Respiratory Distress Cardiovascular: Regular Rate, Rhythm, Normal Peripheral Pulses Gastrointestinal: Normal Bowel Sounds, No Pulsatile Mass, Non Tender, Soft Rectal: Deferred Extremity: Normal Capillary Refill, Normal Range of Motion, No Pedal Edema, Other (Bruising and tenderness to her right upper extremity) Neurologic/Psychiatric: Alert, Oriented x3, No Motor/Sensory Deficits, Other (flat affect) Skin: Warm/Dry, Ecchymosis (Bruising to the right upper extremity) Procedures/Interventions Suture Size: 4-0 F5-2 Progress/Results/Core Measures Suspected Sepsis SIRS Temperature: Pulse: Respiratory Rate: Laboratory Tests 11/18/21 13:30: White Blood Count 11.4H Blood Pressure / Mean: Laboratory Tests 11/18/21 13:30: Creatinine 0.91, INR Comment 1.0, Platelet Count 140, Total Bilirubin 0.4 Results/Orders Lab Results Laboratory Tests Test 11/18/21 13:25 11/18/21 13:30 Range/Units Influenza Type A (RT-PCR) Not Detected Not Detecte Influenza Type B (RT-PCR) Not Detected Not Detecte SARS-CoV-2 RNA (RT-PCR) Not Detected Not Detecte White Blood Count 11.4 H 4.3-11.0 10^3/uL Red Blood Count 5.44 H 3.80-5.11 10^6/uL Hemoglobin 16.3 H 11.5-16.0 g/dL Hematocrit 48 35-52 % Mean Corpuscular Volume 88 80-99 fL Mean Corpuscular Hemoglobin 30 25-34 pg Mean Corpuscular Hemoglobin Concent 34 32-36 g/dL Red Cell Distribution Width 14.6 H 10.0-14.5 % Platelet Count 140 130-400 10^3/uL Mean Platelet Volume 11.7 9.0-12.2 fL Immature Granulocyte % (Auto) 0 % Neutrophils (%) (Auto) 67 42-75 % Lymphocytes (%) (Auto) 25 12-44 % Monocytes (%) (Auto) 6 0-12 % Eosinophils (%) (Auto) 1 0-10 % Basophils (%) (Auto) 1 0-10 % Neutrophils # (Auto) 7.6 1.8-7.8 X 10^3 Lymphocytes # (Auto) 2.9 1.0-4.0 X 10^3 Monocytes # (Auto) 0.6 0.0-1.0 X 10^3 Eosinophils # (Auto) 0.1 0.0-0.3 10^3/uL Basophils # (Auto) 0.1 0.0-0.1 10^3/uL Immature Granulocyte # (Auto) 0.1 0.0-0.1 10^3/uL Prothrombin Time 13.4 12.2-14.7 SEC INR Comment 1.0 0.8-1.4 Activated Partial Thromboplast Time 28 24-35 SEC Sodium Level 138 135-145 MMOL/L Potassium Level 3.9 3.6-5.0 MMOL/L Chloride Level 106 98-107 MMOL/L Carbon Dioxide Level 18 L 21-32 MMOL/L Anion Gap 14 5-14 MMOL/L Blood Urea Nitrogen 9 7-18 MG/DL Creatinine 0.91 0.60-1.30 MG/DL Estimat Glomerular Filtration Rate 65 BUN/Creatinine Ratio 10 Glucose Level 108 H 70-105 MG/DL Calcium Level 9.0 8.5-10.1 MG/DL Corrected Calcium 8.8 8.5-10.1 MG/DL Total Bilirubin 0.4 0.1-1.0 MG/DL Aspartate Amino Transf (AST/SGOT) 12 5-34 U/L Alanine Aminotransferase (ALT/SGPT) 18 0-55 U/L Alkaline Phosphatase 143 H 40-136 U/L Troponin I < 0.30 <0.30 NG/ML C-Reactive Protein 1.06 H <0.50 MG/DL Total Protein 7.6 6.4-8.2 GM/DL Albumin 4.2 3.2-4.5 GM/DL My Orders Orders - JEREMIAH HOPE MD Monitor-Rhythm Ecg Trace Only (11/18/21 13:38) Ed Iv/Invasive Line Start (11/18/21 13:38) Cbc With Automated Diff (11/18/21 13:38) Comprehensive Metabolic Panel (11/18/21 13:38) Crp Fs (11/18/21 13:38) Troponin I Fs (11/18/21 13:38) Protime With Inr (11/18/21 13:38) Partial Thromboplastin Time (11/18/21 13:38) Ns Iv 1000 Ml (Sodium Chloride 0.9%) (11/18/21 13:45) Ondansetron Injection (Zofran Injectio (11/18/21 13:45) Ketorolac Injection (Toradol Injection) (11/18/21 13:38) Diphenhydramine Injection (Benadryl Inje (11/18/21 13:38) Covid 19 Inhouse Test (11/18/21 13:38) Isolation Central Supply Req (11/18/21 13:38) Influenza A And B By Pcr (11/18/21 13:25) Medications Given in ED Vital Signs/I&O 11/18/21 11/18/21 13:10 15:40 Temp 36.3 Pulse 96 84 Resp 16 28 B/P (MAP) 133/82 (99) 106/52 Pulse Ox 98 98 O2 Delivery Room Air Room Air Capillary Refill : Progress Note : Progress Note Patient states that she was having right-sided headache and migraine since having a seizure with fall last week. She refused a CT scan of her head. Labs showed some mild dehydration but no evidence of infection. Her flu and Covid came back negative. She reports her pain improved after treatment in the ED. Departure Impression Primary Impression: Right-sided headache Additional Impressions: Dehydration Upper respiratory infection with cough and congestion Diarrhea Qualified Codes: R19.7 - Diarrhea, unspecified Increasing frequency of seizure activity Disposition: 01 HOME, SELF-CARE Condition: Stable Departure-Patient Inst. Decision time for Depature: 15:29 Referrals: LIZZ HENRIQUEZ DO (PCP/Family) Primary Care Physician Patient Instructions: Seizures, Adult ED, Upper Respiratory Infection ED, Dehydration, Adult ED, Diarrhea, Adult ED Add. Discharge Instructions: Make sure to drink plenty of fluids and stay well-hydrated. Continue on your medications as prescribed Follow-up with the neurologist as scheduled in November for the increased seizure activity. Your Covid and influenza swabs were negative. All discharge instructions reviewed with patient and/or family. Voiced understanding. JEREMIAH HOPE MD Nov 18, 2021 13:41
[2021-11-18] MEDS ORDERED: ONDANSETRON 4 MG/2 ML (SDV) Z0FRAN IV ONE (13:45)
[2021-11-18] MEDS ORDERED: NS IV 1000 ML 1,000 ML IV SCH (13:45)
[2021-11-18 13:50] LABS: HEMATOCRIT 48 % (35-52); HEMOGLOBIN 16.3 g/dL (11.5-16.0); MEAN CORPUSCULAR HEMOGLOBIN 30 pg (25-34); MEAN CORPUSCULAR HGB CONC 34 g/dL (32-36); MEAN CORPUSCULAR VOLUME 88 fL (80-99); MEAN PLATELET VOLUME 11.7 fL (9.0-12.2); PLATELET COUNT 140 10^3/uL (130-400); WHITE BLOOD COUNT 11.4 10^3/uL (4.3-11.0)
[2021-11-18 13:51] LABS: BASOPHILS # (AUTO) 0.1 10^3/uL (0.0-0.1); BASOPHILS % (AUTO) 1 % (0-10); EOSINOPHILS # (AUTO) 0.1 10^3/uL (0.0-0.3); EOSINOPHILS % (AUTO) 1 % (0-10); LYMPHOCYTES # (AUTO) 2.9 X 10^3 (1.0-4.0); LYMPHOCYTES % (AUTO) 25 % (12-44); MONOCYTES # (AUTO) 0.6 X 10^3 (0.0-1.0); MONOCYTES % (AUTO) 6 % (0-12); NEUTROPHILS # (AUTO) 7.6 X 10^3 (1.8-7.8); NEUTROPHILS % (AUTO) 67 % (42-75)
[2021-11-18 13:53] LABS: PROTHROMBIN TIME PATIENT 13.4 SEC (12.2-14.7)
[2021-11-18 14:07] LABS: CARBON DIOXIDE 18 MMOL/L (21-32); CHLORIDE 106 MMOL/L (98-107); POTASSIUM 3.9 MMOL/L (3.6-5.0); SODIUM 138 MMOL/L (135-145)
[2021-11-18 14:08] LABS: ALANINE AMINOTRANSFERASE 18 U/L (0-55); ALBUMIN 4.2 GM/DL (3.2-4.5); ALKALINE PHOSPHATASE 143 U/L (40-136); BILIRUBIN,TOTAL 0.4 MG/DL (0.1-1.0); BUN/CREATININE RATIO 10; CREATININE SERUM 0.91 MG/DL (0.60-1.30); GFR ESTIMATED 65; GLUCOSE 108 MG/DL (70-105); TOTAL PROTEIN 7.6 GM/DL (6.4-8.2)
[2021-11-18 15:40] VITALS: BP 106/52
== END 2021-11-18 15:40 | disposition home or self-care (01) ==
LOC: EDUNIT# 13:02 → ER FS 13:04
DX: S40.021A Contusion of right upper arm, initial encounter (principal); R51.9 Headache, unspecified; E86.0 Dehydration; J06.9 Acute upper respiratory infection, unspecified; R09.81 Nasal congestion; R05.9 Cough, unspecified; R19.7 Diarrhea, unspecified; J44.9 Chronic obstructive pulmonary disease, unspecified; G40.909 Epilepsy, unspecified, not intractable, without status epilepticus; Z20.822 Contact with and (suspected) exposure to COVID-19; Z79.899 Other long term (current) drug therapy; W22.8XXA Striking against or struck by other objects, initial encounter
CPT/HCPCS: 36415; 80053; 84484; 85025; 85610; 85730; 86141; 87636; 93041

== ENCOUNTER → 2022-02-23 | Outpatient (CLI) | payer MEDICARE, MEDICAID ==
--- NOTE | 2022-02-23 11:15 | Diagnostic Imaging Report ---
INDICATION: Left ankle pain AP, oblique, lateral views of the left ankle are obtained. There is no prior study for comparison Extensive postoperative changes are seen in the distal tibia and fibula. There is plate and screws in distal fibula with chronic fracture deformity. There is in the major run placement tibia with multiple screws in the distal tibia. There is a healed fracture deformity of the distal tibia. There is narrowed ankle joint space without spike formation. There is no hardware loosening or acute finding. 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 No hardware loosening or acute abnormality. Dictated by: Dictated on workstation # [id number]
== END ==
LOC: RAD FS 09:14
PROVIDERS: ATTEND Nurse Practitioner
DX: M19.072 Primary osteoarthritis, left ankle and foot (principal)
CPT/HCPCS: 73610

== ENCOUNTER 2022-04-20 16:33 | Emergency (ER) | payer MEDICARE, MEDICAID ==
[~2022-04-20 16:33] MED LIST changes: -VENL150C PO; +VENL150C3 PO
[2022-04-20] MEDS ORDERED: NS IV 1000 ML 1,000 ML IV STA ×2 (16:45→18:55)
[2022-04-20] MEDS ORDERED: LORazepam INJ 2 MG/ML (ATIVAN) VIAL IVP STA ×4 (16:45→17:43)
--- NOTE | 2022-04-20 16:47 | ED General ---
General Chief Complaint: Neurological Problems Stated Complaint: SEIZURE Nursing Triage Note: PT REPORTEDLY HAD A SEIZURE AT HOME. PT HAS A HX OF CHRONIC SEIZURES. PT DOES REPORT SHE HAS MISSED SOME MED DOSES RECENTLY. Source of Information: Patient, Family History of Present Illness Date Seen by Provider: April 20, 2022 Time Seen by Provider: 16:35 Initial Comments 51-year-old female presenting with family from home after having multiple seizures. She has fallen several times as well. She seems postictal and confused currently. She does report that she had missed some of her seizure medicine doses. She reports taking her seizure medicine this morning, however the son showed up and states she has been out of medicine for several days and can not refill it until April 28. She acts confused and is difficult to get information from the patient. Family just reports that they had come to pick her up and bring her to the emergency department when her son had called because she was having seizures and falling to the ground. Allergies and Home Medications Allergies Coded Allergies: acetaminophen (Verified Allergy, Unknown, blisters inside mouth, 03/22/16) aspirin (Verified Allergy, Unknown, interferes with seizure med, 03/22/16) codeine (Verified Allergy, Unknown, blisters inside mouth, 03/22/16) Patient Home Medication List Home Medication List Reviewed: Yes Ascorbic Acid (Vitamin C with Grace Hips) 500 Mg Tablet, 500 MG PO BID, (Reported) Entered as Reported by: CYNDEE ESTEBAN on 04/20/222002 Last Action: New Order Brivaracetam (Briviact) 100 Mg Tablet, 100 MG PO BID, (Reported) Entered as Reported by: CYNDEE ESTEBAN on 04/20/222002 Last Action: New Order Carvedilol (Carvedilol) 25 Mg Tablet, 25 MG PO BID, (Reported) Entered as Reported by: CYNDEE ESTEBAN on 04/20/222002 Last Action: New Order Cholecalciferol (Vitamin D3) (Vitamin D3) 50 Mcg (2000 Unit) Capsule, 50 MCG PO BID, (Reported) Entered as Reported by: CYNDEE ESTEBAN on 04/20/222002 Last Action: New Order Folic Acid (Folic Acid) 0.4 Mg Tablet, 0.4 MG PO TID, (Reported) Entered as Reported by: UNRULY LICONA on 4/1452 Last Action: Edited Lamotrigine (Lamotrigine) 200 Mg Tablet, 400 MG PO, (Reported) Entered as Reported by: CYNDEE ESTEBAN on 04/20/222002 Last Action: New Order Linaclotide (Linzess) 145 Mcg Capsule, 145 MCG PO DAILY, (Reported) Entered as Reported by: CYNDEE ESTEBAN on 04/20/222002 Last Action: New Order Medroxyprogesterone Acetate (Depo-Provera) 150 Mg/Ml Syringe, 150 MG IM UD, (Reported) Entered as Reported by: CYNDEE ESTEBAN on 04/20/222002 Last Action: New Order Montelukast Sodium (Montelukast Sodium) 10 Mg Tablet, 10 MG PO DAILY, (Reported) Entered as Reported by: CYNDEE ESTEBAN on 04/20/222002 Last Action: New Order Simethicone (Gas Relief) 125 Mg Capsule, 125 MG PO PRN PRN for GAS, (Reported) Entered as Reported by: UNRULY LICONA on 03/22/161452 Last Action: Reviewed Simvastatin (Simvastatin) 80 Mg Tablet, 80 MG PO HS, (Reported) Entered as Reported by: CYNDEE ESTEBAN on 04/20/222002 Last Action: New Order Venlafaxine HCl (Effexor Xr) 150 Mg Cap.er.24h, 150 MG PO DAILY, (Reported) Entered as Reported by: UNRULY LICONA on 03/22/161452 Last Action: Reviewed Discontinued Medications Calcium Carbonate/Vitamin D3 (Calcium 600 + Vit D3 800 Tab) 1 Each Tablet, 1 EACH PO TID, (Reported) Discontinued Reason: Referral/FU Appt-Addtl Entered as Reported by: UNRULY LICONA on 03/22/161452 Last Action: Discontinued Carvedilol (Coreg) 6.25 Mg Tablet, 6.25 MG PO DAILY, (Reported) Discontinued Reason: Referral/FU Appt-Addtl Entered as Reported by: UNRULY LICONA on 03/22/161452 Last Action: Discontinued Carvedilol (Coreg) 6.25 Mg Tablet, 3.125 MG PO HS, (Reported) Discontinued Reason: Referral/FU Appt-Addtl Entered as Reported by: UNRULY LICONA on 03/22/161452 Last Action: Discontinued Cephalexin (Cephalexin) 500 Mg Tablet, 500 MG PO BID Discontinued Reason: Referral/FU Appt-Addtl Prescribed by: CASH SARGENT on 07/07/202152 Last Action: Discontinued Diphenhydramine HCl (Benadryl) 25 Mg Capsule, 50 MG PO TAKE WITH HYDROCODON, (Reported) Discontinued Reason: Referral/FU Appt-Addtl Entered as Reported by: UNRULY LICONA on 03/22/161452 Last Action: Discontinued Hydrocodone Bit/Acetaminophen (Lortab 5 Mg Tablet) 1 Each Tablet, 1-2 EACH PO Q4H PRN for PAIN, (Reported) Discontinued Reason: Referral/FU Appt-Addtl Entered as Reported by: UNRULY LICONA on 03/22/161452 Last Action: Discontinued Hydrocodone/Acetaminophen (Lorcet 5-325 mg Tablet) 1 Each Tablet, 1-2 EACH PO Q4H PRN for PAIN Discontinued Reason: Referral/FU Appt-Addtl Prescribed by: NUBIA ROBLES on 03/24/161007 Last Action: Discontinued Ibuprofen (Ibuprofen) 800 Mg Tablet, 800 MG PO Q8H PRN for PAIN, (Reported) Discontinued Reason: Referral/FU Appt-Addtl Entered as Reported by: UNRULY LICONA on 03/22/161452 Last Action: Discontinued Ibuprofen (Ibuprofen) 600 Mg Tablet, 600 MG PO Q6H PRN for PAIN-MILD Discontinued Reason: Referral/FU Appt-Addtl Prescribed by: JAYDEN FLORES on 11/27/20 1510 Last Action: Discontinued Melatonin/Pyridoxine (Melatonin 3 mg Tablet) 1 Each Tablet, 3 MG PO HS PRN for SLEEP, (Reported) Discontinued Reason: Referral/FU Appt-Addtl Entered as Reported by: UNRULY LICONA on 03/22/161452 Last Action: Discontinued Nitrofurantoin Monohyd/M-Cryst (Macrobid 100 mg Capsule) 100 Mg Capsule, 1 TAB PO BID Discontinued Reason: Referral/FU Appt-Addtl Prescribed by: NUBIA ROBLES on 03/24/161007 Last Action: Discontinued Oxycodone Hcl (Oxyir Tablet) 5 Mg Tab, 5 MG PO Q8H PRN for PAIN-SEVERE (8-10) Discontinued Reason: Referral/FU Appt-Addtl Prescribed by: JAYDEN FLORES on 11/27/20 1510 Last Action: Discontinued Simvastatin (Zocor) 20 Mg Tablet, 20 MG PO HS, (Reported) Discontinued Reason: Prescription changed Entered as Reported by: UNRULY LICONA on 03/22/16 145 Topiramate (Topamax) 200 Mg Tablet, 200 MG PO TID, (Reported) Discontinued Reason: Referral/FU Appt-Addtl Entered as Reported by: UNRULY LICONA on 03/22/161452 Last Action: Discontinued Review of Systems Review of Systems Constitutional: No fever EENTM: no symptoms reported Respiratory: no symptoms reported Gastrointestinal: No nausea, No vomiting Genitourinary: no symptoms reported Skin: change in color (multiple bruises in various stages of healing) Psychiatric/Neurological: Seizure Hematologic/Lymphatic: Denies Blood Clots History and ROS obtained from family as pt was too confused and post-ictal to answer questions Past Jphquqx-Pwbfvd-Mkangb Hx Patient Social History Tobacco Use?: Yes Tobacco type used: Cigarettes Smoking Status: Current Everyday Smoker Use of E-Cig and/or Vaping dev: No Substance use?: No Alcohol Use?: No Pt feels they are or have been: No Seasonal Allergies Seasonal Allergies: No Past Medical History Surgery/Hospitalization HX: , chronic seizures Surgeries: Yes (vagal nerve stimulator and battery changed x3 bilat lower leg fx, ) Respiratory: Yes COPD Cardiac: Yes (Tachycardia) Neurological: Yes (Grand mal) Headaches /Migraines, Seizure Disorder Reproductive Disorders: No Sexually Transmitted Disease: No Genitourinary: Yes Kidney Stones Gastrointestinal: No Musculoskeletal: No (bilat ankle fx and huston fx's) Arthritis, Fractures Endocrine: No HEENT: Yes Hearing Impairment: Hard of Hearing Cancer: No Psychosocial: No Integumentary: No Blood Disorders: No Physical Exam Vital Signs Vital Signs - First Documented 04/20/22 16:35 Temp 35.9 Pulse 104 Resp 20 B/P (MAP) 146/76 (99) Pulse Ox 97 O2 Delivery Room Air Capillary Refill : Less Than 3 Seconds Height, Weight, BMI Height: 5'3.00" Weight: 191lbs. 2.0oz. 86.595878ob; 32.00 BMI Method: General Appearance: Obese, Other (confused and anxious) Eyes: Bilateral Eye PERRL, Bilateral Eye EOMI HEENT: No Moist Mucous Membranes (slightly dry mucous membranes) Neck: Full Range of Motion, Normal Inspection, Non Tender, Supple Respiratory: Chest Non Tender, Lungs Clear, Normal Breath Sounds, No Accessory Muscle Use, No Respiratory Distress Cardiovascular: Normal Peripheral Pulses, Tachycardia Gastrointestinal: Normal Bowel Sounds, No Pulsatile Mass, Non Tender, Soft Rectal: Deferred Extremity: Normal Capillary Refill, Normal Range of Motion, No Pedal Edema Neurologic/Psychiatric: Alert, floor scrubber II-XII Norm as Tested, Disoriented (only oriented to self) Skin: Normal Color, Warm/Dry Procedures/Interventions Suture Size: 4-0 F5-2 Progress/Results/Core Measures Suspected Sepsis SIRS Temperature: Pulse: 104 Respiratory Rate: 20 Laboratory Tests 04/20/22 16:50: White Blood Count 18.4H Blood Pressure 146 /76 Mean: 99 Laboratory Tests 04/20/22 16:50: Creatinine 0.76, Platelet Count 112L, Total Bilirubin 0.5 Results/Orders Lab Results Laboratory Tests Test 04/20/22 16:50 04/20/22 18:06 Range/Units White Blood Count 18.4 H 4.3-11.0 10^3/uL Red Blood Count 5.18 H 3.80-5.11 10^6/uL Hemoglobin 15.8 11.5-16.0 g/dL Hematocrit 47 35-52 % Mean Corpuscular Volume 90 80-99 fL Mean Corpuscular Hemoglobin 31 25-34 pg Mean Corpuscular Hemoglobin Concent 34 32-36 g/dL Red Cell Distribution Width 14.1 10.0-14.5 % Platelet Count 112 L 130-400 10^3/uL Mean Platelet Volume 11.9 9.0-12.2 fL Immature Granulocyte % (Auto) 0 % Neutrophils (%) (Auto) 83 H 42-75 % Lymphocytes (%) (Auto) 11 L 12-44 % Monocytes (%) (Auto) 5 0-12 % Eosinophils (%) (Auto) 0 0-10 % Basophils (%) (Auto) 0 0-10 % Neutrophils # (Auto) 15.3 H 1.8-7.8 10^3/uL Lymphocytes # (Auto) 2.0 1.0-4.0 10^3/uL Monocytes # (Auto) 0.9 0.0-1.0 10^3/uL Eosinophils # (Auto) 0.0 0.0-0.3 10^3/uL Basophils # (Auto) 0.1 0.0-0.1 10^3/uL Immature Granulocyte # (Auto) 0.1 0.0-0.1 10^3/uL Neutrophils % (Manual) 79 % Lymphocytes % (Manual) 10 % Monocytes % (Manual) 4 % Eosinophils % (Manual) 0 % Basophils % (Manual) 0 % Band Neutrophils 7 % Platelet Estimate DECREASED Percent Immature Platelet Fraction 12.0 H 0.0-7.6 % Macrocytosis 1+ Sodium Level 137 135-145 MMOL/L Potassium Level 4.2 3.6-5.0 MMOL/L Chloride Level 98 98-107 MMOL/L Carbon Dioxide Level 23 21-32 MMOL/L Anion Gap 16 H 5-14 MMOL/L Blood Urea Nitrogen 10 7-18 MG/DL Creatinine 0.76 0.60-1.30 MG/DL Estimat Glomerular Filtration Rate 95 BUN/Creatinine Ratio 13 Glucose Level 141 H 70-105 MG/DL Calcium Level 9.9 8.5-10.1 MG/DL Corrected Calcium 9.7 8.5-10.1 MG/DL Total Bilirubin 0.5 0.1-1.0 MG/DL Aspartate Amino Transf (AST/SGOT) 42 H 5-34 U/L Alanine Aminotransferase (ALT/SGPT) 57 H 0-55 U/L Alkaline Phosphatase 100 40-136 U/L Total Protein 7.7 6.4-8.2 GM/DL Albumin 4.3 3.2-4.5 GM/DL Salicylates Level < 0.3 L 5.0-20.0 MG/DL Acetaminophen Level < 10 L 10-30 UG/ML Serum Alcohol < 10 <10 MG/DL Urine Color YELLOW Urine Clarity CLEAR Urine pH 6.5 5-9 Urine Specific [place] 1.020 1.016-1.022 Urine Protein TRACE H NEGATIVE Urine Glucose (UA) 1+ H NEGATIVE Urine Ketones NEGATIVE NEGATIVE Urine Nitrite NEGATIVE NEGATIVE Urine Bilirubin NEGATIVE NEGATIVE Urine Urobilinogen 0.2 < = 1.0 MG/DL Urine Leukocyte Esterase NEGATIVE NEGATIVE Urine RBC (Auto) NEGATIVE NEGATIVE Urine RBC NONE /HPF Urine WBC 0-2 /HPF Urine Squamous Epithelial Cells 5-10 /HPF Urine Crystals NONE /LPF Urine Bacteria NEGATIVE /HPF Urine Casts PRESENT /LPF Urine Hyaline Casts 5-10 H /LPF Urine Mucus SMALL H /LPF Urine Culture Indicated NO Urine Opiates Screen NEGATIVE NEGATIVE Urine Oxycodone Screen NEGATIVE NEGATIVE Urine Methadone Screen NEGATIVE NEGATIVE Urine Propoxyphene Screen NEGATIVE NEGATIVE Urine Barbiturates Screen NEGATIVE NEGATIVE Ur Tricyclic Antidepressants Screen NEGATIVE NEGATIVE Urine Phencyclidine Screen NEGATIVE NEGATIVE Urine Amphetamines Screen NEGATIVE NEGATIVE Urine Methamphetamines Screen NEGATIVE NEGATIVE Urine Benzodiazepines Screen POSITIVE H NEGATIVE Urine Cocaine Screen NEGATIVE NEGATIVE Urine Cannabinoids Screen NEGATIVE NEGATIVE My Orders Orders - JEREMIAH HOPE MD Ua Culture If Indicated (04/20/22 16:42) Cbc With Automated Diff (04/20/22 16:42) Comprehensive Metabolic Panel (04/20/22 16:42) Alcohol (04/20/22 16:42) Drug Screen Stat (Urine) (04/20/22 16:42) Acetaminophen (04/20/22 16:42) Salicylate (04/20/22 16:42) Ekg Tracing (04/20/22 16:42) Ed Iv/Invasive Line Start (04/20/22 16:42) Monitor-Rhythm Ecg Trace Only (04/20/22 16:42) Ct Head/Cervical Spine Wo (04/20/22 16:42) Straight Cath For Spec.-Adult (04/20/22 16:44) Ns Iv 1000 Ml (Sodium Chloride 0.9%) (04/20/22 16:45) Lorazepam Injection (Ativan Injection) (04/20/22 16:45) Lorazepam Injection (Ativan Injection) (04/20/22 16:57) Levetiracetam Injection (Keppra Injectio (04/20/22 16:57) Manual Differential (04/20/22 16:50) Lorazepam Injection (Ativan Injection) (04/20/22 17:40) Lorazepam Injection (Ativan Injection) (04/20/22 17:39) Lorazepam Injection (Ativan Injection) (04/20/22 17:43) Chiang Cath (04/20/22 17:43) Ns Iv 1000 Ml (Sodium Chloride 0.9%) (04/20/22 18:55) Vital Signs/I&O 04/20/22 04/20/22 16:35 20:08 Temp 35.9 36.0 Pulse 104 107 Resp 20 28 B/P (MAP) 146/76 (99) 136/66 Pulse Ox 97 97 O2 Delivery Room Air Room Air Capillary Refill : Less Than 3 Seconds Blood Pressure Mean: 99 Progress Note #1: Progress Note Ordered labs as well as urine and urine drug screen. CT scan of the head and cervical spine since she had had several falls. Ordered normal saline 1 L IV fluid for hydration, Ativan 1 mg IV for her recurrent seizures. Keppra 1 g IV for her missing doses of lamictal and having recurrent seizures. Progress Note #2: Progress Note Labs shows elevated white blood cell count of 18.4 with a fairly normal differential. Her chemistry panel does not show any acute significant abnormality to account for her seizures. The alcohol salicylate and acetaminophen levels are 0. Patient continued to have seizure activity and be postictal without ever returning to her baseline where she was communicating or following commands so she did receive an additional milligram of Ativan for seizures shortly after arrival. Then when she went to the CT she was having more agitation and some seizure activity so an additional milligram of Ativan was given. As this was not helping to control her symptoms an additional 2 mg of Ativan were administered. Finally after that she was able to hold still better for a CT scan of her head and cervical spine. She still had to be placed in soft restraints and have her head held to try and get images. Progress Note #3: Time: 18:03 Progress Note As patient is not returning to baseline and continues to go from postictal phase to seizure activity despite multiple doses of medication will contact [facility] about possible transfer. Discussed with Dr. Saldana with the [facility] transfer center and she stated that they would check to see if they had any beds available for the patient. Progress Note #4: Time: 19:08 Progress Note Call back to [facility] and spoke with ELVIRA Hickman, and she stated they were planning on admit to [facility] but were waiting on room assignment from the nurses since they were going through shift change currently. They will call back once they have the bed assignment. UA does not show infection and UDS shows the BZD that had been given here in the ED. CT head and cervical spine had some motion artifact but no acute significant findings and no large intracranial hemorrhage or abnormality. ECG Initial ECG Impression Date: April 20, 2022 Initial ECG Impression Time: 16:47 Initial ECG Rate: 102 Initial ECG Rhythm: S.Tach Initial ECG Comparisson: Unchanged Comment Sinus tachycardia with a heart rate of 102 bpm. HI interval [address] elevation. There is artifact on the tracing. QT interval 343 ms with a QTc interval 401 ms. Overall appears similar to prior tracings. Diagnostic Imaging Diagonstic Imaging: CT Plain Films/CT/US/NM/MRI: c-spine, head [facility] [place], [place] NAME: RAJIV BANEGAS [facility] REC#: [id number] PT STATUS: REG ER : 1970 PHYSICIAN: JEREMIAH HOPE MD ADMIT DATE: 04/20/22/ER FS Draft Date of Exam:04/20/22 CT HEAD/CERVICAL SPINE WO EXAMINATION: CT head and CT cervical spine without contrast. TECHNIQUE: Multiple contiguous axial images were obtained through the brain and cervical spine without the use of intravenous contrast. Sagittal and coronal reformations through the cervical spine were then performed. All CT scans use one or more of the following dose optimizing techniques: automated exposure control, MA and/or KvP adjustment based on patient size and exam type or iterative reconstruction. HISTORY: Seizure, fall COMPARISON: None available. FINDINGS: HEAD: The ventricles and sulci are normal. There is hypoattenuation likely encephalomalacia within the bilateral frontal lobes, right greater than left. Evaluation is limited secondary to patient motion throughout the exam. No acute intracranial hemorrhage or abnormal extra-axial fluid collections are present. No hyperdense vessel. Surgical changes of the frontal calvarium. The calvarium is otherwise intact. The mastoid air cells are clear. The visualized paranasal sinuses are clear. The orbits are normal. C-SPINE: Exam is limited secondary to patient motion. Vertebral body heights are preserved. No obvious fracture is seen. No obvious perched facets. The paraspinous soft tissues are normal. The visualized thyroid gland is normal. The visualized lung apices are normal. IMPRESSION: Significantly limited exam secondary to patient motion. 1. No acute intracranial abnormality. Surgical changes of the frontal calvarium with likely underlying chronic encephalomalacia of the bilateral frontal lobes. 2. No obvious cervical spine fracture. 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 Saldana the transfer doctor for [facility]. She accepted the patient on the condition that they had a bed available. We will call back once I know if they have a bed available and a bed assignment. 1907 I called back and spoke with ELVIRA Hickman, and she advised that they did not have a bed available for the patient on the [facility] and we are waiting on shift change to finish so that they can get a bed assignment. They will call back once they have the actual room number. Transfer Facility: [facility] Method of Transfer: EMS Departure-Patient Inst. Referrals: LIZZ HENRIQUEZ DO (PCP) Primary Care Physician JEREMIAH HOPE MD April 20, 2022 16:47
[2022-04-20 17:09] LABS: BASOPHILS # (AUTO) 0.1 10^3/uL (0.0-0.1); BASOPHILS % (AUTO) 0 % (0-10); EOSINOPHILS % (AUTO) 0 % (0-10); HEMATOCRIT 47 % (35-52); HEMOGLOBIN 15.8 g/dL (11.5-16.0); LYMPHOCYTES % (AUTO) 11 % (12-44); MEAN CORPUSCULAR HEMOGLOBIN 31 pg (25-34); MEAN CORPUSCULAR HGB CONC 34 g/dL (32-36); MEAN CORPUSCULAR VOLUME 90 fL (80-99); MEAN PLATELET VOLUME 11.9 fL (9.0-12.2); MONOCYTES # (AUTO) 0.9 10^3/uL (0.0-1.0); MONOCYTES % (AUTO) 5 % (0-12); NEUTROPHILS # (AUTO) 15.3 10^3/uL (1.8-7.8); NEUTROPHILS % (AUTO) 83 % (42-75); PLATELET COUNT 112 10^3/uL (130-400); WHITE BLOOD COUNT 18.4 10^3/uL (4.3-11.0)
[2022-04-20 17:25] LABS: SODIUM 137 MMOL/L (135-145)
[2022-04-20 17:26] LABS: ACETAMINOPHEN < 10 UG/ML (10-30); ALANINE AMINOTRANSFERASE 57 U/L (0-55); ALBUMIN 4.3 GM/DL (3.2-4.5); ALKALINE PHOSPHATASE 100 U/L (40-136); BILIRUBIN,TOTAL 0.5 MG/DL (0.1-1.0); BUN/CREATININE RATIO 13; CALCIUM 9.9 MG/DL (8.5-10.1); CARBON DIOXIDE 23 MMOL/L (21-32); CHLORIDE 98 MMOL/L (98-107); CREATININE SERUM 0.76 MG/DL (0.60-1.30); GFR ESTIMATED 95; GLUCOSE 141 MG/DL (70-105); POTASSIUM 4.2 MMOL/L (3.6-5.0); SALICYLATE < 0.3 MG/DL (5.0-20.0); TOTAL PROTEIN 7.7 GM/DL (6.4-8.2)
[2022-04-20 17:32] LABS: NEUTROPHILS % (MANUAL) 79 %
[2022-04-20 17:33] LABS: BAND NEUTROPHILS 7 %; BASOPHILS % (MANUAL) 0 %; EOSINOPHILS % (MANUAL) 0 %; LYMPHOCYTES % (MANUAL) 10 %; MONOCYTES % (MANUAL) 4 %; PLATELET ESTIMATE DECREASED
[2022-04-20] MEDS ORDERED: LORazepam INJ 2 MG/ML (ATIVAN) VIAL ONE (17:39)
[2022-04-20 18:09] LABS: BILIRUBIN,URINE NEGATIVE (NEGATIVE); CLARITY,URINE CLEAR; COLOR,URINE YELLOW; GLUCOSE, URINE (UA) 1+ (NEGATIVE); KETONES,URINE NEGATIVE (NEGATIVE); LEUKOCYTE ESTERASE ,URINE NEGATIVE (NEGATIVE); NITRITE,URINE NEGATIVE (NEGATIVE); PH,URINE 6.5 (5-9); PROTEIN,URINE TRACE (NEGATIVE)
[2022-04-20 18:20] LABS: BACTERIA,URINE NEGATIVE /HPF; WBC,URINE 0-2 /HPF
[2022-04-20 18:21] LABS: AMPHETAMINE SCREEN, URINE NEGATIVE (NEGATIVE); BARBITURATE SCREEN URINE NEGATIVE (NEGATIVE); BENZODIAZEPINES SCREEN URINE POSITIVE (NEGATIVE); CANNABINOID SCREEN, URINE NEGATIVE (NEGATIVE); COCAINE SCREEN URINE NEGATIVE (NEGATIVE); METHADONE STAT NEGATIVE (NEGATIVE); OPIATE SCREEN URINE NEGATIVE (NEGATIVE); OXYCODONE STAT NEGATIVE (NEGATIVE); PROPOXYPHENE STAT NEGATIVE (NEGATIVE); TRICYCLIC ANTIDEPRESSANTS SCRE NEGATIVE (NEGATIVE)
--- NOTE | 2022-04-20 18:33 | Diagnostic Imaging Report ---
EXAMINATION: CT head and CT cervical spine without contrast. TECHNIQUE: Multiple contiguous axial images were obtained through the brain and cervical spine without the use of intravenous contrast. Sagittal and coronal reformations through the cervical spine were then performed. All CT scans use one or more of the following dose optimizing techniques: automated exposure control, MA and/or KvP adjustment based on patient size and exam type or iterative reconstruction. HISTORY: Seizure, fall COMPARISON: None available. FINDINGS: HEAD: The ventricles and sulci are normal. There is hypoattenuation likely encephalomalacia within the bilateral frontal lobes, right greater than left. Evaluation is limited secondary to patient motion throughout the exam. No acute intracranial hemorrhage or abnormal extra-axial fluid collections are present. No hyperdense vessel. Surgical changes of the frontal calvarium. The calvarium is otherwise intact. The mastoid air cells are clear. The visualized paranasal sinuses are clear. The orbits are normal. C-SPINE: Exam is limited secondary to patient motion. Vertebral body heights are preserved. No obvious fracture is seen. No obvious perched facets. The paraspinous soft tissues are normal. The visualized thyroid gland is normal. The visualized lung apices are normal. IMPRESSION: Significantly limited exam secondary to patient motion. 1. No acute intracranial abnormality. Surgical changes of the frontal calvarium with likely underlying chronic encephalomalacia of the bilateral frontal lobes. 2. No obvious cervical spine fracture. Dictated by: Dictated on workstation # [id number]
[2022-04-20] MEDS ORDERED: LINA145C PO (20:03)
[2022-04-20] MEDS ORDERED: ASCO500T75 PO (20:03)
[2022-04-20] MEDS ORDERED: BRIV100T PO (20:03)
[2022-04-20] MEDS ORDERED: CARV25TA PO (20:03)
[2022-04-20] MEDS ORDERED: MONT-40 PO (20:03)
[2022-04-20] MEDS ORDERED: CHOL200074 PO (20:03)
[2022-04-20] MEDS ORDERED: SIMV80TA21 PO (20:03)
[2022-04-20] MEDS ORDERED: MEDR150D8 IM (20:03)
[2022-04-20] MEDS ORDERED: LAMO200T5 PO (20:03)
[2022-04-20 20:08] VITALS: BP 136/66
== END 2022-04-20 20:08 | disposition short-term general hospital (02) ==
LOC: EDUNIT# 16:33 → ER FS 16:35
DX: G40.311 Generalized idiopathic epilepsy and epileptic syndromes, intractable, with status epilepticus (principal); R29.6 Repeated falls; T42.76XA Underdosing of unspecified antiepileptic and sedative-hypnotic drugs, initial encounter; Z91.14 Patient's other noncompliance with medication regimen
CPT/HCPCS: 36415; 51702; 70450; 72125; 80053; 80306; 81000; 85007; 85027; 93041; G0480 ×3; 80320; 80329

== ENCOUNTER → 2022-05-21 | Outpatient (CLI) | payer MEDICARE, MEDICAID ==
[~2022-05-21] MED LIST changes: +ASCO500T75 PO; +BRIV100T PO; +CARV25TA PO; +CHOL200074 PO; +LAMO200T5 PO; +LINA145C PO; +MEDR150D8 IM; +MONT-40 PO; +SIMV80TA21 PO
--- NOTE | 2022-05-21 12:12 | Diagnostic Imaging Report ---
INDICATION: Right shoulder pain and injury. Time of Exam: 11:40 AM 3 views of the right shoulder were obtained. Glenohumeral and acromioclavicular alignment are normal. Acromiohumeral space is normal. No fracture or dislocation is seen. IMPRESSION: No acute abnormality is detected. Dictated by: Dictated on workstation # [id number]
--- NOTE | 2022-05-21 12:12 | Diagnostic Imaging Report ---
INDICATION: Left knee pain and injury. TIME OF EXAM: 11:46 AM 3 views of the left knee were obtained. FINDINGS: There is an intramedullary jean paul transfixing the tibia. Knee alignment is normal. Joint spaces are well maintained. Articular surfaces are smooth. No fracture, dislocation or effusion is seen. Benign-appearing calcifications in the region of the medial distal femur noted. IMPRESSION: Chronic and postoperative changes. No acute bony abnormality is detected. Dictated by: Dictated on workstation # [id number]
--- NOTE | 2022-05-21 12:20 | Diagnostic Imaging Report ---
Indication: Right foot injury and pain. Time of Exam: 11:43 AM 3 views of the right foot were obtained. The metatarsals are intact. Phalanges appear intact. Midfoot and hindfoot are unremarkable. No fractures are seen. Impression: No acute bony abnormality is detected. Dictated by: Dictated on workstation # [id number]
== END ==
LOC: RAD FS 11:19
PROVIDERS: ATTEND Nurse Practitioner
DX: M79.671 Pain in right foot (principal); M25.562 Pain in left knee; M25.511 Pain in right shoulder
CPT/HCPCS: 73030; 73562; 73630

== ENCOUNTER 2023-04-08 21:02 | Emergency (ER) | payer MEDICARE, MEDICAID ==
[~2023-04-08] VITALS: Ht 170 cm; Wt 190.0 kg
[~2023-04-08 21:02] MED LIST changes: +SIMV-333 PO; -SIMV20TA PO
[2023-04-08 21:05] VITALS: BP 145/72
[2023-04-08] MEDS ORDERED: MEDR150D6 IM (21:19)
--- NOTE | 2023-04-08 21:19 | ED Neurological Problem ---
General Chief Complaint: Neurological Problems Stated Complaint: SEIZURES Source: patient, family History of Present Illness Date Seen by Provider: April 08, 2023 Time Seen by Provider: 21:06 Initial Comments 52-year-old female presenting with history of seizures. Her daughter who is her main caregiver is with her and provides additional independent history. Patient has a longstanding history of seizures and has recently found that if she is controlling her hormones with Depo-Provera shots her seizures are better controlled. She has the shots every 6 weeks. She was due to have a shot today but her primary care provider was not able to get her into the clinic to be seen. The first available appointment was Tuesday at 2 PM. Family was concerned that if she did not get the shot over the weekend she would have seizures and get hurt. She has had fractures and problems from seizure activity in the past. Associated Symptoms: No confusion, No fatigue, No fever/chills, No insomnia, No loss of consciousness, No muscle spasms, No nausea/vomiting, No numbness in legs/feet, No paresthesia, No ringing in ears; seizures; No sleepy, No slurred speech, No tingling in legs/feet, No trouble walking, No vision changes, No weakness Allergies and Home Medications Allergies Coded Allergies: acetaminophen (Verified Allergy, Unknown, blisters inside mouth, 03/22/16) aspirin (Verified Allergy, Unknown, interferes with seizure med, 03/22/16) codeine (Verified Allergy, Unknown, blisters inside mouth, 03/22/16) Patient Home Medication List Home Medication List Reviewed: Yes Ascorbic Acid (Vitamin C with Grace Hips) 500 Mg Tablet, 500 MG PO BID, (Reported) Entered as Reported by: CYNDEE ESTEBAN on 04/20/222002 Brivaracetam (Briviact) 100 Mg Tablet, 100 MG PO BID, (Reported) Entered as Reported by: CYNDEE ESTEBAN on 04/20/222002 Carvedilol (Carvedilol) 25 Mg Tablet, 25 MG PO BID, (Reported) Entered as Reported by: CYNDEE ESTEBAN on 04/20/222002 Cholecalciferol (Vitamin D3) (Vitamin D3) 50 Mcg (2000 Unit) Capsule, 50 MCG PO BID, (Reported) Entered as Reported by: CYNDEE ESTEBAN on 04/20/222002 Folic Acid (Folic Acid) 0.4 Mg Tablet, 0.4 MG PO TID, (Reported) Entered as Reported by: UNRULY LICONA on 03/22/161452 Lamotrigine (Lamotrigine) 200 Mg Tablet, 400 MG PO, (Reported) Entered as Reported by: CYNDEE ESTEBAN on 04/20/222002 Linaclotide (Linzess) 145 Mcg Capsule, 145 MCG PO DAILY, (Reported) Entered as Reported by: CYNDEE ESTEBAN on 04/20/222002 Medroxyprogesterone Acetate (Depo-Provera) 150 Mg/Ml Syringe, 150 MG IM UD, (Reported) Entered as Reported by: CYNDEE ESTEBAN on 04/20/222002 Medroxyprogesterone Acetate (Medroxyprogesterone Acetate) 150 Mg/Ml Syringe, 150 MG IM ONCE Prescribed by: JEREMIAH HOPE on 04/08/232118 Montelukast Sodium (Montelukast Sodium) 10 Mg Tablet, 10 MG PO DAILY, (Reported) Entered as Reported by: CYNDEE ESTEBAN on 04/20/222002 Simethicone (Gas Relief) 125 Mg Capsule, 125 MG PO PRN PRN for GAS, (Reported) Entered as Reported by: UNRULY LICONA on 03/22/161452 Simvastatin (Simvastatin) 80 Mg Tablet, 80 MG PO HS, (Reported) Entered as Reported by: CYNDEE ESTEBAN on 04/20/222002 Venlafaxine HCl (Effexor Xr) 150 Mg Cap.er.24h, 150 MG PO DAILY, (Reported) Entered as Reported by: UNRULY LICONA on 03/22/161452 Review of Systems Review of Systems Constitutional: No chills, No fever Eyes: No Symptoms Reported Ears, Nose, Mouth, Throat: no symptoms reported Respiratory: no symptoms reported Cardiovascular: no symptoms reported Gastrointestinal: no symptoms reported Genitourinary: no symptoms reported Musculoskeletal: no symptoms reported Skin: no symptoms reported Psychiatric/Neurological: See HPI Past Ggswlll-Oxqssl-Qurhnd Hx Seasonal Allergies Seasonal Allergies: No Past Medical History Surgery/Hospitalization HX: , chronic seizures Surgeries: Yes (vagal nerve stimulator and battery changed x3 bilat lower leg fx, ) Respiratory: Yes COPD Cardiac: Yes (Tachycardia) Neurological: Yes (Grand mal) Headaches /Migraines, Seizure Disorder Reproductive Disorders: No Sexually Transmitted Disease: No Genitourinary: Yes Kidney Stones Gastrointestinal: No Musculoskeletal: No (bilat ankle fx and huston fx's) Arthritis, Fractures Endocrine: No HEENT: Yes Hearing Impairment: Hard of Hearing Cancer: No Psychosocial: No Integumentary: No Blood Disorders: No Physical Exam Vital Signs Capillary Refill : Height, Weight, BMI Height: 5'3.00" Weight: 191lbs. 2.0oz. 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 Sent prescription to your [facility] as that is not a medicine here in the emergency department. Is a one-time instance will provide a refill of this medication and encouraged patient to continue to work with Dr. HENRIQUEZ and primary care for keeping on track with her shots. Departure Impression Primary Impression: Increasing frequency of seizure activity Additional Impression: Encounter for medication refill Disposition: 01 HOME, SELF-CARE Condition: Stable Departure-Patient Inst. Decision time for Depature: 21:17 Referrals: LIZZ HENRIQUEZ DO (PCP/Family) Primary Care Physician Patient Instructions: Seizures, Adult ED Add. Discharge Instructions: If the [facility] pharmacy does not have the medicine then check with [facility] during the day tomorrow. Continue to work with Dr. Henriquez for your medicines All discharge instructions reviewed with patient and/or family. Voiced understanding. Scripts Medroxyprogesterone Acetate (Medroxyprogesterone Acetate) 150 Mg/Ml Syringe 150 MG IM ONCE for Hormone imbalance/Seizures for 1 Day, #1 EA 0 Refills Prov: JEREMIAH HOPE MD 04/08/23 JEREMIAH HOPE MD April 08, 2023 21:19
== END 2023-04-08 21:20 | disposition home or self-care (01) ==
LOC: EDUNIT# 21:02 → ER FS 21:03
DX: G40.909 Epilepsy, unspecified, not intractable, without status epilepticus (principal); Z76.0 Encounter for issue of repeat prescription; Z28.310 Unvaccinated for COVID-19
CPT/HCPCS: 99281

== ENCOUNTER 2023-06-08 08:27 | Emergency (ER) | payer MEDICARE, MEDICAID ==
[~2023-06-08] VITALS: Ht 160 cm; Wt 88.5 kg
[~2023-06-08 08:27] MED LIST changes: +MEDR150D6 IM
--- NOTE | 2023-06-08 08:43 | ED Lower Extremity ---
General Chief Complaint: Lower Extremity Stated Complaint: RT ANKLE INJ Source: patient Exam Limitations: no limitations History of Present Illness Date Seen by Provider: Jun 08, 2023 Time Seen by Provider: 08:34 Initial Comments 53-year-old female presents to the emergency department today for right ankle pain. She has a gap between her house and her deck and got her ankle caught between it just prior to arrival. She has pain bilaterally in her ankle. No o ther injuries. All other systems reviewed and negative except documented per HPI. Voice recognition software was used to help create this chart Allergies and Home Medications Allergies Coded Allergies: acetaminophen (Verified Allergy, Unknown, blisters inside mouth, 03/22/16) aspirin (Verified Allergy, Unknown, interferes with seizure med, 03/22/16) codeine (Verified Allergy, Unknown, blisters inside mouth, 03/22/16) Patient Home Medication List Home Medication List Reviewed: Yes Ascorbic Acid (Vitamin C with Grace Hips) 500 Mg Tablet, 500 MG PO BID, (Reported) Entered as Reported by: CYNDEE ESTEBAN on 04/20/222002 Brivaracetam (Briviact) 100 Mg Tablet, 100 MG PO BID, (Reported) Entered as Reported by: CYNDEE ESTEBAN on 04/20/222002 Carvedilol (Carvedilol) 25 Mg Tablet, 25 MG PO BID, (Reported) Entered as Reported by: CYNDEE ESTEBAN on 04/20/222002 Cholecalciferol (Vitamin D3) (Vitamin D3) 50 Mcg (2000 Unit) Capsule, 50 MCG PO BID, (Reported) Entered as Reported by: CYNDEE ESTEBAN on 04/20/222002 Folic Acid (Folic Acid) 0.4 Mg Tablet, 0.4 MG PO TID, (Reported) Entered as Reported by: UNRULY LICONA on 03/22/16 1453 Lamotrigine (Lamotrigine) 200 Mg Tablet, 400 MG PO, (Reported) Entered as Reported by: CYNDEE ESTEBAN on 04/20/222002 Linaclotide (Linzess) 145 Mcg Capsule, 145 MCG PO DAILY, (Reported) Entered as Reported by: CYNDEE ESTEBAN on 04/20/222002 Medroxyprogesterone Acetate (Depo-Provera) 150 Mg/Ml Syringe, 150 MG IM UD, (Reported) Entered as Reported by: CYNDEE ESTEBAN on 04/20/222002 Medroxyprogesterone Acetate (Medroxyprogesterone Acetate) 150 Mg/Ml Syringe, 150 MG IM ONCE Prescribed by: JEREMIAH HOPE on 04/08/232118 Montelukast Sodium (Montelukast Sodium) 10 Mg Tablet, 10 MG PO DAILY, (Reported) Entered as Reported by: CYNDEE ESTEBAN on 04/20/222002 Simethicone (Gas Relief) 125 Mg Capsule, 125 MG PO PRN PRN for GAS, (Reported) Entered as Reported by: UNRULY LICONA on 03/22/16 145 Simvastatin (Simvastatin) 80 Mg Tablet, 80 MG PO HS, (Reported) Entered as Reported by: CYNDEE ESTEBAN on 04/20/222002 Venlafaxine HCl (Effexor Xr) 150 Mg Cap.er.24h, 150 MG PO DAILY, (Reported) Entered as Reported by: UNRULY LICONA on 03/22/16 145 Review of Systems Constitutional: see HPI Past Dudrcbd-Ntlzxy-Awpwri Hx Patient Social History Tobacco Use?: No Smoking Status: Never a Smoker Smokeless Tobacco Frequency: Never a User Use of E-Cig and/or Vaping dev: Yes E-Cig or Vaping type used: Nicotine Use of E-Cig and/or Vaping [place]: Current Everyday User Substance use?: No Alcohol Use?: No Pt feels they are or have been: No Immunizations Up To Date First/Initial COVID19 Vaccinat: N/A Second COVID19 Vaccination [place]: N/A Seasonal Allergies Seasonal Allergies: No Past Medical History Surgery/Hospitalization HX: , chronic seizures Surgeries: Yes (vagal nerve stimulator and battery changed x3 bilat lower leg fx, ) Respiratory: Yes COPD Cardiac: Yes (Tachycardia) Neurological: Yes (Grand mal) Headaches /Migraines, Seizure Disorder Reproductive Disorders: No Sexually Transmitted Disease: No Genitourinary: Yes Kidney Stones Gastrointestinal: No Musculoskeletal: No (bilat ankle fx and huston fx's) Arthritis, Fractures Endocrine: No HEENT: Yes Hearing Impairment: Hard of Hearing Cancer: No Psychosocial: No Integumentary: No Blood Disorders: No Physical Exam Vital Signs Vital Signs - First Documented 06/08/23 08:30 Temp 36.7 Pulse 104 Resp 14 B/P (MAP) 107/70 (82) O2 Delivery Room Air Capillary Refill : Height, Weight, BMI Height: 5'3.00" Weight: 191lbs. 2.0oz. 86.894867de; 65.00 BMI Method: General Appearance: WD/WN, no apparent distress Cardiovascular: regular rate, rhythm, no murmur Respiratory: chest non-tender, lungs clear, normal breath sounds Hips: bilateral hip non-tender, bilateral hip normal inspection, bilateral hip normal range of motion Legs: bilateral leg non-tender, bilateral leg normal inspection, bilateral leg normal range of motion Knees: bilateral knee non-tender, bilateral knee normal inspection, bilateral knee normal range of motion Ankles: right ankle other (Tenderness palpation the medial and lateral malleoli. There is swelling at the medial aspect with some bruising just superior to the malleolus. There is an abrasion to the medial and lateral aspect of her ankles. Neurovascular motor and sensory intact.) Feet: bilateral foot non-tender, bilateral foot normal inspection, bilateral foot normal range of motion Neurologic/Psychiatric: alert, oriented x 3 Skin: normal color, other (Abrasions as described above) Procedures/Interventions Suture Size: 4-0 F5-2 Progress/Results/Core Measures Results/Orders My Orders Orders - DENG TONG DO Ankle 3 View Right (06/08/23 08:39) Ketorolac Injection (Toradol Injection) (06/08/23 09:15) Vital Signs/I&O 06/08/23 08:30 Temp 36.7 Pulse 104 Resp 14 B/P (MAP) 107/70 (82) O2 Delivery Room Air Departure Communication (Admissions) Patient is hemodynamically stable. She has a fracture medial malleolus. Hardware otherwise seems intact in the ankle joint mortise is intact. I have independently reviewed all imaging posterior short leg with stirrup splint was placed. She is neurovascular and sensory intact. She is given IM Toradol and discharged with p.o. hydrocodone. She does state that she is on buprenorphine at home but cannot take it due to side effects. She was previously on hydrocodone for some time Impression Primary Impression: Fracture of medial malleolus, right, closed Qualified Codes: S82.54XA - Nondisplaced fracture of medial malleolus of right tibia, initial encounter for closed fracture Disposition: HOME, SELF-CARE Condition: Stable Departure-Patient Inst. Referrals: LIZZ HENRIQUEZ DO (PCP/Family) Primary Care Physician CASI CORREA MD Patient Instructions: Ankle Fracture ED Add. Discharge Instructions: Keep the splint clean, dry. Take hydrocodone as needed for pain. This may make you drowsy so do not drive or make important decisions while taking it. Do not bear weight on your ankle, use the crutches as needed. Follow-up with Dr. Correa by calling to schedule an appointment. Elevate the area when not in use and ice it as needed. Return to the emergency department for any severe concerns. All discharge instructions reviewed with patient and/or family. Voiced understanding. Scripts Hydrocodone/Acetaminophen (Hydrocodone-Acetamin 5-325 mg) 5 Mg-325 Mg Tablet 1 TAB PO Q4H PRN for PAIN-MODERATE (5-7) for 3 Days, #12 TAB Prov: DENG TONG DO 06/08/23 DENG TONG DO Jun 08, 2023 08:43
--- NOTE | 2023-06-08 09:04 | Diagnostic Imaging Report ---
Clinical indications: Patient right ankle pain after twisting ankle. EXAM: X-ray right ankle, 3 views. Comparisons: X-ray right ankle dated 09/03/2019. Findings and impression: 1: There is interval development of a nondisplaced fracture involving the medial malleolus. There is soft tissue swelling adjacent to medial aspect of the ankle. 2: There is no other fracture or dislocation seen. 3: Again seen operative extradural fixation of distal tibia and distal fibular with healed fracture changes seen. 4: Ankle mortise and syndesmotic joints unremarkable. Dictated by: Dictated on workstation # [id number]
[2023-06-08] MEDS ORDERED: ACHD5005 PO (09:14)
[2023-06-08] MEDS ORDERED: KETOROLAC 15 MG/ML VIAL IM ONE (09:15)
[2023-06-08 09:26] VITALS: BP 129/75
== END 2023-06-08 09:26 | disposition home or self-care (01) ==
LOC: EDUNIT# 08:27 → ER FS 08:29
DX: S82.51XA Displaced fracture of medial malleolus of right tibia, initial encounter for closed fracture (principal); F17.290 Nicotine dependence, other tobacco product, uncomplicated; Z28.310 Unvaccinated for COVID-19; W23.1XXA Caught, crushed, jammed, or pinched between stationary objects, initial encounter
CPT/HCPCS: 73610